=== PATIENT | female | born 1955 | race Caucasian/White ===

== ENCOUNTER 2023-03-18 12:58 | Outpatient (OUT) | payer OTHER, SELFPAY ==
--- NOTE | 2023-03-18 13:01 | CT_ITS ---
[address] [address] Patient Name: HORTENSIA BATES MRN: [id number] date: 1955 Sex: F Assigned Patient Location: MAMMO Current Patient Location: MAMMO Accession/Order Number: [id number] Exam Date: 03/18/2023 13:25 Report Date: 03/18/2023 23:13 At the request of: SACHA BRAXTON Procedure: CT lung screening low-dose EXAMINATION: CT lung screening low-dose HISTORY: History Of Tobacco Z87.891 COMPARISON: No relevant comparison available. TECHNIQUE: Axial, Coronal, and Sagittal images were created without the administration of IV contrast material. Dose reduction techniques were achieved by using automated exposure control and/or adjustment of mA and/or kV according to patient size and/or use of iterative reconstruction technique. FINDINGS: LUNGS: Right middle lobe contains a 8 mm, 5 mm, and 4 mm nodule. Posterior medial left lower lobe 8 mm nodule and a 6 mm nodule adjacent the diaphragm. A few additional similar. Small nodules scattered within the lungs. No acute infiltrates. PLEURA: No mass, effusion, or pneumothorax. VASCULATURE: No abnormality. BRADLEY: No mass or pathologic adenopathy. MEDIASTINUM: No mass or pathologic adenopathy. CARDIAC: No enlargement, pericardial thickening, or significant calcification. AORTA: No aneurysm or dissection. CHEST WALL: No mass or axillary adenopathy BONES: No bone lesion or fracture. LIMITED ABDOMEN: No suspicious findings. Limited images of the upper abdomen. OTHER: Negative. CT/CT lung screening low-dose IMPRESSION: 1. Lung-RADS Category 4A- Suspicious. Findings for which additional diagnostic testing and/ or tissue sampling is recommended. 3 month LDCT; PET/CT may be used when there is a >= 8 mm solid component. 2. Follow-up CT chest in 3 months is recommended to help document stability since this is the patient's initial CT of the chest. Electronically authenticated by: KACI CORTEZ Date: 03/18/2023 23:13
--- NOTE | 2023-03-18 13:01 | MM_ITS ---
Patient: HORTENSIA BATES Exam Date: 03/18/2023 : 1955 Gender:F Ordering : NYDIA Kailaamando Goldstein TRAINER Admission #: [id number] Family : Order #: [id number] CLICK HERE TO VIEW EXAM RADIOLOGY REPORT PROCEDURE: MM TOMOSYNTHESIS SCREENING BI COMPARISON: None. INDICATIONS: Screening Calculator Name NCI Breast Cancer Risk Assessment Tool 5 Year Breast Cancer Risk Not Reported. Lifetime Breast Cancer Risk Not Reported. Personal Breast Cancer No Personal Ovarian Cancer No Treatments None Family Cancers None LOCATION: [facility] BREAST COMPOSITION: Scattered areas fibroglandular density. FINDINGS: DIAGNOSTIC CATEGORY 0--INCOMPLETE: NEED ADDITIONAL IMAGING EVALUATION. Scattered benign-appearing nodules are present. Scattered benign-appearing calcifications are present. Scattered benign-appearing lymph nodes are present. RIGHT BREAST: Cluster of microcalcifications upper outer quadrant, mid breast. Spot magnification recommended. LEFT BREAST: 1.5 x 1.1 cm oval nodule 12 o'clock anterior left breast, ultrasound follow-up recommended. RECOMMENDATIONS: ADDITIONAL MAMMOGRAPHIC VIEWS REQUIRED: RIGHT BREAST - spot magnification ULTRASOUND: LEFT BREAST PLEASE NOTE: A NORMAL MAMMOGRAM DOES NOT EXCLUDE THE POSSIBILITY OF BREAST CANCER. A CLINICALLY SUSPICIOUS PALPABLE LUMP SHOULD BE BIOPSIED. Dictated by: Bashir Wood MD on 03/19/2023 at 07:26 Approved by: Bashir Wood MD on 03/19/2023 at 07:30
== END 2023-03-18 12:59 | disposition home or self-care (01) ==
LOC: MAMMO 12:58
PROVIDERS: PCP Nurse Practitioner; Visit Provider Nurse Practitioner
DX: Z12.31 Encounter for screening mammogram for malignant neoplasm of breast (principal); Z87.891 Personal history of nicotine dependence; R92.0 Mammographic microcalcification found on diagnostic imaging of breast; N63.25 Unspecified lump in the left breast, overlapping quadrants
CPT/HCPCS: 71271; 77063; 77067

== ENCOUNTER 2023-04-02 09:09 | Outpatient (OUT) | payer OTHER, SELFPAY ==
--- NOTE | 2023-04-02 | XR_ITS ---
The [address] [address] Patient Name: HORTENSIA BATES MRN: [id number] date: 1955 Sex: F Assigned Patient Location: [facility] Current Patient Location: RAD Accession/Order Number: [id number] Exam Date: 04/02/2023 09:26 Report Date: 04/02/2023 13:03 At the request of: ERYN TATE Procedure: XR foot RT min 3V PROCEDURE: XR ankle RT min 3V, XR foot RT min 3V COMPARISON: None. HISTORY: RIGHT ANKLE PAIN FINDINGS: BONES:No acute fracture or dislocation. Moderate degenerative changes of the midfoot with joint space narrowing and marginal osteophyte formation. SOFT TISSUES:Negative. No visible soft tissue swelling. EFFUSION:None visible. OTHER: Negative. XR/XR foot RT min 3V IMPRESSION: Moderate degenerative changes of the midfoot Electronically authenticated by: LAURO LOUIS Date: 04/02/2023 13:03
--- NOTE | 2023-04-02 | XR_ITS ---
The [address] [address] Patient Name: HORTENSIA BATES MRN: [id number] date: 1955 Sex: F Assigned Patient Location: [facility] Current Patient Location: RAD Accession/Order Number: [id number] Exam Date: 04/02/2023 09:26 Report Date: 04/02/2023 13:03 At the request of: ERYN TATE Procedure: XR ankle RT min 3V PROCEDURE: XR ankle RT min 3V, XR foot RT min 3V COMPARISON: None. HISTORY: RIGHT ANKLE PAIN FINDINGS: BONES:No acute fracture or dislocation. Moderate degenerative changes of the midfoot with joint space narrowing and marginal osteophyte formation. SOFT TISSUES:Negative. No visible soft tissue swelling. EFFUSION:None visible. OTHER: Negative. XR/XR ankle RT min 3V IMPRESSION: Moderate degenerative changes of the midfoot Electronically authenticated by: LAURO LOUIS Date: 04/02/2023 13:03
== END 2023-04-02 09:10 | disposition home or self-care (01) ==
LOC: RAD 09:09
PROVIDERS: PCP Nurse Practitioner; Visit Provider Physician Assistant
DX: M25.571 Pain in right ankle and joints of right foot (principal)
CPT/HCPCS: 73610; 73630

== ENCOUNTER 2023-04-07 09:15 | Outpatient (OUT) | payer OTHER, SELFPAY ==
--- NOTE | 2023-04-07 09:23 | MM_ITS ---
Patient Name: HORTENSIA BATES MR#: [id number] : 1955 Exam Date: 04/07/2023 Ordering Doctor: NYDIA Goldstein CNP RADIOLOGY REPORT PROCEDURE: MM DIAGNOSTIC MAMMO UNILAT RT, 04/07/2023, 09:24 US BREAST LT LIMITED, 04/07/2023, 09:36 COMPARISON: MM TOMOSYNTHESIS SCREENING BI, 03/18/2023. INDICATIONS: Abnormal Mammogram R92.8 Calculator Name NCI Breast Cancer Risk Assessment Tool 5 Year Breast Cancer Risk Not Reported. Lifetime Breast Cancer Risk Not Reported. Personal Breast Cancer No Personal Ovarian Cancer No Treatments None Family Cancers None LOCATION: [facility] BREAST COMPOSITION: Scattered areas fibroglandular density. FINDINGS: DIAGNOSTIC CATEGORY 3--PROBABLY BENIGN FINDING. THE FOLLOWING FINDING(S) HAS A HIGH PROBABILITY OF A BENIGN ETIOLOGY: RIGHT BREAST: Spot magnification views demonstrate a cluster of coarse calcifications within upper-outer quadrant; nonspecific but favoring benign etiology. Follow-up diagnostic mammography of right breast in 6 months is recommended to document stability and to help establish a baseline. LEFT BREAST: Ultrasound evaluation demonstrates 2 anechoic cysts with minimally lobular margins within the anterior upper breast, 1.2 cm and 0.2 cm in size. Follow-up mammography and ultrasound evaluation in 6 months is recommended to document stability and to help establish baseline. RECOMMENDATIONS: SHORT TERM FOLLOW-UP DIAGNOSTIC MAMMOGRAM BILATERAL BREASTS IN 6 MONTHS. SHORT TERM FOLLOW-UP ULTRASOUND LEFT BREAST IN 6 MONTHS. PLEASE NOTE: A NORMAL MAMMOGRAM DOES NOT EXCLUDE THE POSSIBILITY OF BREAST CANCER. A CLINICALLY SUSPICIOUS PALPABLE LUMP SHOULD BE BIOPSIED. Dictated by: Jung Louis M.D. on 04/07/2023 at 10:08 Approved by: Jung Louis M.D. on 04/07/2023 at 10:34
== END 2023-04-07 09:16 | disposition home or self-care (01) ==
LOC: MAMMO 09:15
PROVIDERS: PCP Nurse Practitioner; Visit Provider Nurse Practitioner
DX: R92.8 Other abnormal and inconclusive findings on diagnostic imaging of breast (principal)
CPT/HCPCS: 76642; 77065

== ENCOUNTER 2023-04-13 16:27 | Outpatient (RCR) | payer OTHER, SELFPAY | END 2023-05-17 07:57 | disposition home or self-care (01) | LOC: PT 16:27 | PROVIDERS: PCP Nurse Practitioner; Visit Provider Physician Assistant | DX: M19.071 Primary osteoarthritis, right ankle and foot (principal) | CPT/HCPCS: 20560; 97035; 97140; 97161 ==

== ENCOUNTER 2023-05-15 16:16 | Outpatient (OUT) | payer OTHER, SELFPAY ==
[2023-05-15 16:39] LABS: Estimated Average Glucose 126 mg/dL
[2023-05-15 16:42] LABS: Anion Gap 9.3; BUN Creatinine Ratio 21.3; Calcium 9.5 mg/dL (8.5-10.1); Carbon Dioxide 26.5 mmol/L (21.0-32.0); Chloride 104 mmol/L (98-107); Estimated GFR (African America >60 (>=60); Estimated GFR (Non-African Ame >60 (>=60); Glucose 110 mg/dL (74-106); Potassium 3.8 mmol/L (3.5-5.1); Sodium 136 mmol/L (136-145)
== END 2023-05-15 16:17 | disposition home or self-care (01) ==
LOC: LAB 16:18
PROVIDERS: PCP Nurse Practitioner; Visit Provider Nurse Practitioner
DX: E11.9 Type 2 diabetes mellitus without complications (principal); I10 Essential (primary) hypertension
CPT/HCPCS: 36415; 80048; 83036

== ENCOUNTER 2023-06-23 09:59 | Outpatient (OUT) | payer OTHER, SELFPAY ==
--- OUTSIDE RECORDS SUMMARY | 2023-06-23 10:04 | XMS_ITS | CCD ---
Author Name Unknown Address [address] [place] [address] Organization [facility] Care Team Providers Care Cdl Team Truck Driver Name Role Phone AICHHOLZ, KAILA Referring Unavailable AICHHOLZ, KAILA Primary Care Unavailable DE Procedure Practitioner Unavailab vi APPLE YASEEN Admitting Unavailable ALASTAL, YASEEN Attending Unavailable ALASTAL, YASEEN Surgeon Unavailable AICHHOLZ, KAILA Primary Care Unavailable AICHHOLZ, KAILA Referring Unavailable SULEIMAN GRULLON Admitting Unavailable SULEIMAN GRULLON Attending Unavailable SHANTHI, SARMED Admitting Unavailable SHANTHI, SARMED Attending Unavailable CHAY ARANGO Surgeon Unavailable AICHHOLZ, KAILA Primary Care Unavailable DE Procedure Practitioner Unavailab JUAN Souza Referring Unavailable SHANTHI, SARMED Surgeon Unavailable DE Procedure Practitioner Unavailab LULU Irizarry Referring Unavailable SHANTHI, SARMED Admitting Unavailable AICHHOLZ, KAILA Primary Care Unavailable MISAEL NEGRO Attending Unavailable DE Procedure Practitioner Unavailab vi APPLE YASEEN Surgeon Unavailable AICHHOLZ, TANGLED YARN WORKER KAILA Attending Unavailable AICHHOLZ, TANGLED YARN WORKER KAILA Consulting Unavailable AICHHOLZ, TANGLED YARN WORKER KAILA Primary Care Unavailable AICHHOLZ, TANGLED YARN WORKER KAILA Admitting Unavailable AICHHOLZ, TANGLED YARN WORKER KAILA Attending Unavailable AICHHOLZ, TANGLED YARN WORKER KAILA Consulting Unavailable AICHHOLZ, TANGLED YARN WORKER KAILA Primary Care Unavailable AICHHOLZ, TANGLED YARN WORKER KAILA Admitting Unavailable AICHHOLZ, TANGLED YARN WORKER KAILA Attending Unavailable AICHHOLZ, TANGLED YARN WORKER KAILA Consulting Unavailable AICHHOLZ, TANGLED YARN WORKER KAILA Primary Care Unavailable AICHHOLZ, TANGLED YARN WORKER KAILA Admitting Unavailable Aichliset, Kaila J Primary Care Provider [phone] Kaila Goldstein Attending Provider Kaila Goldstein Attending Unavailable Angelita, Kaila J Primary Care Unavailable Aichholz, Kaila J Admitting Unavailable Kaila Goldstein CNP Primary Care Provider KAILA GOLDSTEIN Attending Unavailable HARLEEN JONES Attending Unavailable KAILA GOLDSTEIN Primary Care Unavailable EDWINA PRETTY Attending Unavailable UMAIR ENRIQUE Attending Unavailable YANN KUHN Attending Unavailable KAILA GOLDSTEIN Primary Care Unavailable HARLEEN JONES Referring Unavailable Allergies Allergy Classification Reported Allergen(s) Allergy Type Date of Onset Reaction(s) Facility Unclassified (4 sources) Thiazides; Translations: [THIAZIDES] Drug allergy (disorder) 01-04-2013 [facility] Repository (3 sources) Spironolactone; Translations: [SPIRONOLACTONE] Drug Allergy 04-29-2023 [facility] (2 sources) Thiazides Drug Allergy 05-06-2022 [facility] Medications Completed/Discontinued Medications Medication Drug Class(es) Dates Sig (Normalized) Sig (Original) allopurinol 100 mg oral tablet (2 sources) Xanthine Oxidase Inhibitor allopurinol (ZYLOPRIM) 100 mg tablet Allopurinol 0 Active Comment on above: Allopurinol apixaban 5 mg oral tablet (2 sources) Factor Xa Inhibitor take 1 tablet by mouth twice daily apixaban (ELIQUIS) 5 mg tab(s) Take 5 mg by mouth two times a day. 0 Active Comment on above: Take 5 mg by mouth t wo times a day. atorvastatin 10 mg oral tablet (2 sources) HMG-CoA Reductase Inhibitor atorvastatin (LIPITOR) 10 mg tablet Atorvastatin Calcium 0 Active Comment on above: Atorvastatin Calcium Calcium Carbonate / vitamin D3 (2 sources) calcium carbonate/vitamin D3 (CALCIUM 500 + D ORAL) Take by mouth. 0 Active Comment on above: Take by mouth. levothyroxine sodium 0.1 mg oral tablet (2 sources) l-Thyroxine levothyroxine (SYNTHROID) 100 mcg tablet Levothyroxine Sodium 0 Active Comment on above: Levothyroxine Sodium losartan potassium 50 mg oral tablet (2 sources) Angiotensin 2 Receptor Gabriella losartan (COZAAR) 50 mg tablet Losartan Potassium 0 Active Comment on above: Losartan Potassium osmotic 24 hr metFORMIN hydrochloride 500 mg extended release oral tablet (2 sources) Biguanide metFORMIN ER (FORTAMET) 500 mg 24 hr tablet metFORMIN HCl 0 Active Comment on above: metFORMIN HCl 24 hr metoprolol succinate 25 mg extended release oral tablet (2 sources) beta-Adrenergic Gabriella metoprolol succinate ER (TOPROL XL) 25 mg 24 hr tablet Metoprolol Succinate 0 Active Comment on above: Metoprolol Succinate multivit-minerals/f olic acid (CENTRUM ADULTS ORAL) (2 sources) multivit-mineral s/ folic acid (CENTRUM ADULTS ORAL) Centrum 0 Active Comment on above: Centrum polyethylene glycol 3350 001019 mg / potassium chloride 2970 mg / sodium bicarbonate 6740 mg / sodium chloride 5860 mg / sodium sulfate 58845 mg powder for oral solution (1 source) Osmotic Laxative Start: 04-29-2023 End: 04-29-2023 peg 3350-Electrolytes (GOLYTELY) 236-22.74-6.74 -5.86 gram suspension Take 4,000 mL by mouth one time only for 1 dose. 1 Each 0 04/29/2023 04/29/2023 Comment on above: Take 4,000 mL by madhu th one time only for 1 dose. Problems Active Problems Problem Classification Problem Date Documented Da te Episodic/Chronic Cardiac dysrhythmias (2 sources) Chronic atrial fibrillation; Translations: [Chronic atrial fibrillation, unspecified] Onset: 06-18-2023 06-18-2023 Chronic Diabetes mellitus without complication (5 sources) Type 2 diabetes mellitus without complications; Translations: [TYPE 2 DM WITHOUT COMPLICATIONS] Onset: 03-13-2022 Chronic Disorders of lipid metabolism (3 sources) Mixed hyperlipidemia; Translations: [Hyperlipidemia] Onset: 06-12-2023 Chronic Essential hypertension (6 sources) Essential (primary) hypertension; Translations: [Essential hypertension] Onset: 09-18-2022 Chronic Gout and other crystal arthropathies (1 source) Gout, unspecified; Translations: [GOUT UNSPECIFIED] Onset: 03-16-2022 Chronic Other and unspecified benign neoplasm (2 sources) History of polyp of colon; Translations: [Personal history of colonic polyps] 04-29-2023 Episodic Other and unspecified benign neoplasm (1 source) Personal history of colonic polyps; Translations: [History of colon polyps] Onset: 06-18-2023 Episodic Other lower respiratory disease (1 source) Other nonspecific abnormal finding of lung field; Translations: [Other nonspecific abnormal finding of lung field] Onset: 04-03-2023 Episodic Other nutritional; endocrine; and metabolic disorders (3 sources) Morbid (severe) obesity due to excess calories; Translations: [Morbid (severe) obesity due to excess calories] Onset: 12-03-2022 Chronic Other nutritional; endocrine; and metabolic disorders (2 sources) Obese class III; Translations: [Morbid (severe) obesity due to excess calories] Onset: 06-18-2023 06-18-2023 Chronic Residual codes; unclassified (2 sources) Localized edema; Translations: [Localized edema] Onset: 06-12-2023 Episodic Thyroid disorders (4 sources) Hypothyroidism, unspecified; Translations: [HYPOTHYROIDISM UNSPECIFIED] Onset: 09-15-2022 Chronic Unclassified (2 sources) Other persistent atrial fibrillation; Translations: [Other persistent atrial fibrillation] Onset: 05-06-2022 Unclassified (1 source) Chronic atrial fibrillation, unspecified; Translations: [Chronic atrial fibrillation (HCC)] Onset: 06-18-2023 Viral infection (1 source) COVID-19; Translations: [COVID-19] Onset: 05-04-2022 Past or Other Problems Problem Classification Problem Date Documented Da te Episodic/Chronic Fever of unknown origin (4 sources) Fever, unspecified; Translations: [FEVER UNSPECIFIED] Onset: 05-01-2022 Episodic Malaise and fatigue (1 source) Other malaise; Translations: [OTHER MALAISE] Onset: 05-04-2022 Episodic Results Test Name Value Interpretation Reference Range Facility ANES POSTPROC EVALon 024 ANES POSTPROC EVAL HNO ID: [id number] Author: YANN KUHN MD Service: Anesthesiology Author Type: Physician Type: Anesthesia Postprocedure Evaluation Filed: 06/18/2023 09:58 Note Text: POST ANESTHESIA EVALUATION NOTE : 1955 Procedure Summary Date: 06/18/23 Room / Location: Procedures Anesthesia Start: 848 Anesthesia Stop: 918 Procedure: COLONOSCOPY SCREENING Diagnosis: History of colon polyps (High risk colon cancer surveillance: Personal history of colonic polyps) Scheduled Providers: Harleen Jones DO; Leona Rendon APRN.GEAR CUTTING MACHINE OPERATOR; Yann Kuhn MD; Abby Peoples, RN Responsible Provider: Yann Kuhn MD Anesthesia Type: MAC ASA Status: 3 Anesthesia Type: MAC Last Vitals Vitals Value Taken Time BP 161/101 06/18/23 0943 Temp 36.1 ?C (97 ?F) 06/18/23 0923 HR SpO2 77 06/18/23 0943 Resp 16 06/18/23 0943 SpO2 94 % 06/18/23 0943 Vitals shown include unfiled device data. Post Anesthesia Patient Status Patient Evaluation: PACU. PACU/ICU Patient Condition: stable. Anticipated Disposition: phase 2 then home. Neurological Status: aware and responsive. Pulmonary Status: breathing comfortably on room air Airway Control: returned to baseline unsupported. Cardiovascular Status: stable. Pain Management: clinically adequate - multimodal analgesia pain management approach Postoperative Hydration: acceptable. Intraoperative Events: no significant anesthesia events Recommendation: continue current plan of care. Anesthesia Observations No Documentation SIGNATURE: Yann Kuhn MD PATIENT NAME: Hortensia Bates DATE: June 18, 2023 TIME: 9:57 AM CSN: [id number] [facility] ANES PRE-OPon 06-18-2023 ANES PRE-OP HNO ID: [id number] Author: YANN KUHN MD Service: Anesthesiology Author Type: Physician Type: Anesthesia Preprocedure Evaluation Filed: 06/18/2023 08:20 Note Text: ANESTHESIOLOGY DAY OF SURGERY NOTE : 1955 Procedure Information Date/Time: 06/18/23 0900 Scheduled providers: Harleen Jones DO; Leona Rendon APRN.GEAR CUTTING MACHINE OPERATOR; Yann Kuhn MD; Abby Peoples, trauma therapist: COLONOSCOPY SCREENING Location: Procedures Estimated body mass index is 48.5 kg/m? as calculated from the following: Height as of this encounter: 172.7 cm (5' 8 ). Weight as of this encounter: 144.7 kg (319 lb). Most recent hematocrit and potassium results: No results found for this basename: HCT,HEMATOCRIT,K,POTA SSIUM Relevant Problems CARDIO (+) Chronic atrial fibrillation (HCC) (+) HTN (hypertension) Cardiovascular (+) Hyperlipidemia Other (+) Class 3 obesity (HCC) I - PHYSICAL EVALUATION AIRWAY Patient intubated: No. Tracheostomy tube not present Mallampati: II. TM distance: >3 FB. Neck ROM: full ROM without neurological symptoms. Mouth opening: adequate. Short neck: yes. Thick neck: yes DENTAL Normal dental observations. Dental findings: teeth intact. Additional exam findings: yes. CARDIOVASCULAR Rhythm: regular Rate: normal PULMONARY Breath sounds clear to auscultation. ABDOMINAL Obese: obesity present. II - ANESTHESIA PLAN ASA Score: 3 Anesthetic Plan: MAC NPO Status: adequate Beta Gabriella Monitoring Plan Monitoring plan: Standard ASA. Post Procedure Analgesic Plan Postoperative analgesic plan: parenteral or oral opioids and multimodal analgesia. Informed Consent Anesthetic risks, benefits, alternatives, personnel and consent discussed: yes. Patient / Responsible Republican agrees to proceed: yes Patient / Surrogate agrees to blood products: blood products not planned DNR status not reviewed with patient and/or family prior to surgery. Significant changes in the patient condition since the History and Physical, not otherwise documented in primary service progress note: no. Potential Anesthesia issues that may suggest increased risk of complications or contraindication to planned procedure: none. Vitals Value Taken Time BP 132/83 06/18/23 0749 Pulse Resp 22 06/18/23 0749 Temp 36.3 ?C (97.3 ?F) 06/18/23 0749 SpO2 95 % 06/18/23 0749 Outpatient Medications as of 06/18/2023 Medication Sig - levothyroxine (SYNTHROID) 100 mcg tablet Levothyroxine Sodium - metFORMIN ER (FORTAMET) 500 mg 24 hr tablet metFORMIN HCl - losartan (COZAAR) 50 mg tablet Losartan Potassium - metoprolol succinate ER (TOPROL XL) 25 mg 24 hr tablet Metoprolol Succinate - allopurinol (ZYLOPRIM) 100 mg tablet Allopurinol - atorvastatin (LIPITOR) 10 mg tablet Atorvastatin Calcium - calcium carbonate/vitamin D3 (CALCIUM 500 + D ORAL) Take by mouth. - apixaban (ELIQUIS) 5 mg tab(s) Take 5 mg by mouth two times a day. - multivit-minerals/fol ic acid (CENTRUM ADULTS ORAL) Centrum Facility-Administered Medications as of 06/18/2023 Medication Dose Route Frequency - lidocaine (PF) 10 mg/mL (1 %) 1-2 mg injection (XYLOCAINE) 0.1-0.2 mL INTRADERMAL PRN - NaCl 0.9% iv infusion 30 mL/hr INTRAVENOUS CONTINUOUS I have interviewed and examined the patient. I have reviewed the medical record and/or the pre-anesthesia evaluation, pertinent labs, and test results. This contains updated information obtained within 48 hours of Surgery/Procedure. SIGNATURE: Yann Kuhn MD PATIENT NAME: Hortensia Bates DATE: June 18, 2023 TIME: 8:19 AM CSN: [id number] Normal [facility] COLONOSCOPY SCREENINGon [facility] Colonoscopyon 06-18-2023 Colonoscopy [facility] Gastrointestinal Endoscopy Patient Name: Hortensia Bates Procedure Date: 06/18/2023 8:48 AM Date of : 1955 Admit Type: Outpatient Age: 67 Room: [place] [address] Gender: Female Note Status: Finalized Attending MD: Harleen Jones DO, [id number] Procedure: Colonoscopy Indications: High risk colon cancer surveillance: Personal history of colonic polyps Providers: Harleen Jones DO Patient Profile: This is a 67 year old female. Refer to note in patient chart for documentation of history and physical. Last Colonoscopy: within the past year. Referring Physician: Harleen Jones DO (Referring MD) Medicines: See the Anesthesia note for documentation of the administered medications Complications: No immediate complications. Requesting Provider: Procedure: Pre-Anesthesia Assessment: - Prior to the procedure, a History and Physical was performed, and patient medications and allergies were reviewed. The patient's tolerance of previous anesthesia was also reviewed. The risks and benefits of the procedure and the sedation options and risks were discussed with the patient. All questions were answered, and informed consent was obtained. Prior Anticoagulants: The patient has taken no anticoagulant or antiplatelet agents. ASA Grade Assessment: III - A patient with severe systemic disease. After reviewing the risks and benefits, the patient was deemed in satisfactory condition to undergo the procedure. After I obtained informed consent, the scope was passed under direct vision. Throughout the procedure, the patient's blood pressure, pulse, and oxygen saturations were monitored continuously. The 9219 Adult scope was introduced through the anus and advanced to the cecum, identified by appendiceal orifice and ileocecal valve. The colonoscopy was performed without difficulty. The patient tolerated the procedure well. The quality of the bowel preparation was good. The ileocecal valve, appendiceal orifice, and rectum were photographed. Scope Withdrawal Time: 0 hours 16 minutes 46 seconds Moderate Sedation: MAC anesthesia was administered by the anesthesia team. Total Procedure Duration: 0 hours 21 minutes 36 seconds Findings: Six sessile polyps were found in the rectum, sigmoid colon, transverse colon, ascending colon and cecum. The polyps were 3 to 5 mm in size. These polyps were removed with a jumbo cold forceps. Resection and retrieval were complete. Estimated blood loss was minimal. Multiple large-mouthed, medium-mouthed and small-mouthed diverticula were found in the left colon. There was no evidence of diverticular bleeding. Non-bleeding internal hemorrhoids were found during retroflexion. The hemorrhoids were small. The exam was otherwise without abnormality. Impression: - Six 3 to 5 mm polyps in the rectum, in the sigmoid colon, in the transverse colon, in the ascending colon and in the cecum, removed with a jumbo cold forceps. Resected and retrieved. - Moderate diverticulosis in the left colon. There was no evidence of diverticular bleeding. - Non-bleeding internal hemorrhoids. - The examination was otherwise normal. Recommendation: - Patient has a contact number available for emergencies. The signs and symptoms of potential delayed complications were discussed with the patient. Return to normal activities tomorrow. Written discharge instructions were provided to the patient. - Resume previous diet. - Continue present medications. - Await pathology results. - Repeat colonoscopy in 3 years for surveillance. - Return to referring physician. Procedure Code(s): --- Professional --- 03843, Colonoscopy, flexible; with biopsy, single or multiple Diagnosis Code(s): --- Professional --- Z12.11, Encounter for screening for malignant neoplasm of colon Z86.010, Personal history of colonic polyps D12.8, Benign neoplasm of rectum D12.5, Benign neoplasm of sigmoid colon D12.3, Benign neoplasm of transverse colon (hepatic flexure or splenic flexure) D12.2, Benign neoplasm of ascending colon D12.0, Benign neoplasm of cecum K64.8, Other hemorrhoids K57.30, Diverticulosis of large intestine without perforation or abscess without bleeding CPT copyright 2020 [employer]. All rights reserved. The codes documented in this report are preliminary and upon erecting engineer review may be revised to meet current compliance requirements. Attending Participation: I personally performed the entire procedure. Scope In: 8:53:53 AM Scope Out: 9:15:29 AM DO Harleen Hurd DO 06/18/2023 9:19:27 AM This report has been signed electronically by Harleen Jones DO Number of Addenda: 0 Note Initiated On: 06/18/2023 8:48 AM Estimated Blood Loss: Estimated blood loss was minimal. Normal [facility] GLUCOSE, BLOOD (POC)on 06-18 Glucose [Mass/Vol] 107 mg/dL Abnormal 74 - 99 mg/dL [facility] HISTORY PHYSICALon HISTORY PHYSICAL HNO ID: [id number] Author: HARLEEN JONES DO Service: Gastroenterology Author Type: Physician Type: H&P Filed: 06/18/2023 08:14 Note Text: HISTORY AND PHYSICAL Hortensia Bates, 67 year old female Current history and physical on file: No Is a new History and Physical required for today's visit? Yes Indication for procedure: History of colon polyps PROCEDURE(S) SCHEDULED FOR: Colonoscopy with or without biopsies and with or without removal of polyps or lesions, dilation (any means), treatment of bleeding (any means), based on clinical findings. BASELINE BEHAVIOR: Calm BASELINE ORIENTATION: A AND O x3 All medications and allergies reviewed: Yes Skin Assessment: Warm dry mucus membranes pink Airway/Respiratory Assessment: Airway: visualization of the uvula- Yes Mouth: opening greater than 2 fingerbreadths- Yes Neck: full range of motion- Yes Breath sounds clear/equal- Yes Cardiac Assessment: Regular rate and rhythm without murmur Abdominal Assessment: Abdomen soft, non-tender, no masses or organomegaly. Sedation Plan: MAC Additional Comments: None Harleen Jones DO [facility] SURGICAL PATHOLOGYon 024 CASE REPORT [facility] Comment on above: Order Comment: Speci men Type: TISSUE SPECIMEN Ordering Facility: [facility] Address: [address] [place] [address] Result Comment: Surg ica Pathology Report Case: [id number] Authorizing Provider: Harleen Jones DO Collected: 06/18/2023 08:59 AM Ordering Location: Procedures Received: 06/18/2023 09:31 AM Pathologist: Thi Delvalle MD, PhD Specimens: A) - CECUM POLYP B) - ASCENDING COLON POLYP C) - TRANSVERSE COLON POLYP D) - SIGMOID COLON POLYP E) - RECTAL BIOPSY Performed By: #### S #### [facility] CLIA [id number] [address] [place] [address] [place] FINAL DIAGNOSIS Normal [facility] ital Comment on above: Order Comment: Speci men Type: TISSUE SPECIMEN Ordering Facility: [facility] Address: [address] [place] [address] Result Comment: A. C olon, cecum, polyp, biopsy: - Features suggestive of hyperplastic polyp. - Deeper level examined. B. Colon, ascending, polyp, biopsy: - Features suggestive of hyperplastic polyp. - Deeper level examined. C. Colon, transverse, polyp, biopsy: - Features suggestive of sessile serrated polyp. - Deeper level examined. D. Colon, sigmoid, polyp, biopsy: - One fragment of tubular adenoma. - Separate fragment of colonic mucosa with features suggestive of sessile serrated polyp. - Deeper level examined. E. Rectum, biopsy: - Colonic mucosa with focal active inflammation and scattered multinucleate giant cell reaction. - Deeper level examined. Performed By: #### S #### [facility] CLIA [id number] [address] [place] [address] [place] FINAL PERFORMING LAB Normal [facility] Comment on above: Order Comment: Speci men Type: TISSUE SPECIMEN Ordering Facility: [facility] Address: [address] [place] [address] Result Comment: Diag nostic interpretation performed at [facility], [address] [place] [address] CLIA# [id number] Leveling Machine Operator: José Miguel White M.D. Performed By: #### S #### [facility] CLIA [id number] [address] [place] [address] [place] GROSS DESCRIPTION A. CECUM POLYP Normal [facility] Comment on above: Order Comment: Speci men Type: TISSUE SPECIMEN Ordering Facility: [facility] Address: [address] [place] [address] Result Comment: Rece ived in formalin is one piece of smith, soft tissue measuring 0.5 x 0.2 x 0.1 cm. Totally submitted in one cassette. B. ASCENDING COLON POLYP Received in formalin is one piece of smith, soft tissue measuring 0.3 x 0.2 x 0.1 cm. Totally submitted in one cassette. C. TRANSVERSE COLON POLYP Received in formalin are two pieces of smith, soft tissue aggregating to 0.3 x 0.2 x 0.2 cm. Totally submitted in one cassette. D. SIGMOID COLON POLYP Received in formalin are two pieces of smith, soft tissue aggregating to 0.4 x 0.2 x 0.2 cm. Totally submitted in one cassette. E. RECTAL BIOPSY Received in formalin are two pieces of smith, soft tissue aggregating to 0.4 x 0.2 x 0.2 cm. Totally submitted in one cassette. JTS June 18, 2023 3:40 PM Gross examination performed at [facility], [address] [place] [address] Performed By: #### S #### [facility] CLIA [id number] [address] [place] [address] [place] [address] [place] Office Visiton 06-12-2023 Follow-up visit [id number] Hortensia Bates 1955 F Date Provider Department Center 06/12/2023 UMAIR SAAVEDRA NAVARRO Smith Family History Problem Relation Age of Onset No Known Problems Mother No Known Problems Father Family Status - Relation Status Age at Mother Father Level of Service:44746 DE OFFICE/OUTPATIENT ESTABLISHED MOD MDM 30 MIN Normal [facility] Wes 06-04-2023 FAROOQ Telephone (GASTAV) PAULOHORTENSIA ([id number]) 1955 F Date Time Provider Department 06/04/23 HARLEEN JONES During your visit today, we recorded the following information about you: Naila Fleming OCCA 06/04/2023 11:19 AM Signed Contacted and spoke with patient regarding prep instructions for upcoming procedure. Answered all patient's questions. Patient demonstrated understanding and was instructed to call [phone] and ask for nurse triage line for any questions and/or concerns. NEAL Kumar Please review the prep instructions below with the patient should they call with questions. HOW TO PREPARE FOR YOUR COLONOSCOPY USING [facility] PREP You will need to have a responsible adult to bring you to and from your procedure. If you have joint or heart valve replacements, are diabetic or are taking blood thinners; please contact your doctor who ordered these medications or your surgeon and ask if you need to take antibiotics or need to change your medication dosages. Take all other medications as instructed by your doctor. On the day of the procedure take your medications with a sip of water. Please purchase the following from any drug store NO SCRIPT is needed: -4 Dulcolax Laxative tablets -8.3 Ounce size bottle of Miralax -64oz of Smart Water, Propel, Powerade, G2, or Gatorade(nothing red, blue, or purple) MEDICATIONS THAT SHOULD BE HELD 5 DAYS PRIOR TO PROCEDURE: BLOOD THINNERS- LIKE COUMADIN, OR PLAVIX IF YOU ARE A DIABETIC PATIENT YOU NEED TO CHECK WITH YOUR PROVIDER ON HOW TO MANAGE YOUR MEDICATIONS. 5 days prior to your colonoscopy: Do not take medicines that stop diarrhea, stop all fiber supplements, stop any iron-containing products. 3 days prior to your colonoscopy: do not eat High-fiber foods such as popcorn, beans, seeds, multigrain bread/cereals, nuts , salad/vegetables, or fresh and dried fruit One day prior to your colonoscopy: only drink clear liquids the ENTIRE DAY before your colonoscopy. DO NOT EAT ANY SOLID FOODS. Drink at least 8 ounces of clear liquids every hour after waking up, no red,blue or purple colors. The clear liquids include: Broth, water, apple or white grape juice, coffee/tea ( no milk or creamer), clear sodas, sports drinks such as Gatorade, jellos, popsicles. No alcohol. Depending on your arrival time, follow either the single dose prep or the split dose prep. Single Dose Prep FOLLOW THIS IF YOUR ARRIVAL TIME IS BEFORE 10 AM Starting at 3 pm the day before take the 4 Dulcolax Laxative tablets with a large glass of water and mix the entire bottle of the Miralax with the 64 oz. of the drink of your choosing(Smart Water, Propel, Powerade, G2, or Gatorade(nothing red, blue, or purple). Then refrigerate the Miralax solution. Starting at 5-6 pm start to drink the Miralax solution. You will drink 8 ounces every 15 minutes until the solution is completely gone. Continue to drink clear liquids up until 3 hours before your arrival time. DO NOT EAT ANYTHING THE DAY BEFORE OR THE DAY OF YOUR PROCEDURE DO NOT DRINK ANYTHING 3 HOURS PRIOR TO YOUR COLONOSCOPY If at any time you become nauseated or vomit, please stop drinking the solution for 20 mins and then resume. Please call [phone] and ask for Nurse Triage with any questions. Split Dose Prep : FOLLOW THIS IS YOUR ARRIVAL TIME IS AFTER 10AM Starting at 3 pm the day before take the 4 Dulcolax Laxative tablets with a large glass of water and mix the entire bottle of the Miralax with the 64 oz. of the drink of your choosing(Smart Water, Propel, Powerade, G2, or Gatorade(nothing red, blue, or purple). Then refrigerate the Miralax solution. Starting at 5-6 pm start to drink only half the Miralax solution (32 oz.), you will drink 8 ounces every 15 minutes until half the 64 oz. Solution is gone. The other half of the Miralax solution you will drink the day of the procedure 4 hours before your arrival time. You will drink 8 oz every 15 minutes until the solution is completely gone. DO NOT EAT ANYTHING THE DAY BEFORE OR THE DAY OF YOUR PROCEDURE DO NOT DRINK ANYTHING 3 HOURS PRIOR TO YOUR COLONOSCOPY If at any time you become nauseated or vomit, please stop drinking the solution for 20 mins and then resume. THANK YOU! Please call [phone] and ask for nurse triage line if you have any questions [facility] Jared Mcneil - 2nd floor (Surgery Center) [address] [address] [address] Allergies As of Date: 06/04/2023 Noted Allergy Reaction SPIRONOLACTONE 04/29/2023 4 - Hives THIAZIDES 05/06/2022 4 - Hives Date Reviewed: Never Reviewed Reason for Visit: Pre-Op Teaching [134] Prescriptions as of 06/04/2023 - apixaban (ELIQUIS) 5 mg tab(s) Take 5 mg by mouth two times a day. - levothyroxine (SYNTHROID) 100 mcg tablet Levothyroxine Sodium - metFORMIN ER (more content not included)... Normal [facility] CNOVon 04-29-2023 CNOV Office Visit (GASTAV ) HORTENSIA BATES ([id number]) 1955 F Date Time Provider Department 04/29/23 12:20 PM HARLEEN JONES During your visit today, we recorded the following information about you: Pulse Blood pressure Weight 78/minute 140/80 144.7 kg Harleen Jones DO 04/29/2023 12:04 PM Signed Bowel Preparation Instructions for: Miralax-Gatorade Preparations IF YOU DO NOT FOLLOW THESE DIRECTIONS, YOUR COLONOSCOPY WILL BE CANCELLED. Cerda Instructions: Your bowel must be empty so that your doctor can clearly view your colon. Follow all of the instructions in this handout EXACTLY as they are written. Do NOT eat any solid food the ENTIRE day before your colonoscopy. Buy your bowel preparation at least 5 days before your colonoscopy. Four (4) Dulcolax laxative tablets containing 5mg of bisacodyl each (NOT Dulcolax stool softener) One (1) 8.3oz. bottle Miralax (238 grams) or generic equivalent 2 x 32oz. Bottles of Gatorade (NOT RED) Diabetic Patients: Use G2 (Gatorade 2) TRANSPORTATION on the Day of Your Exam A responsible adult MUST be present with you at Check In prior to your colonoscopy and REMAIN in the endoscopy area until you are discharged. You are NOT ALLOWED to drive, take a taxi or bus, or leave the Endoscopy Center ALONE. If you do not have a responsible truck driver flatbed (family member or friend) with you to take you home, your exam cannot be done with sedation and will be cancelled. Please bring a list of all of your current medications, including any [id number] medications with you. Medications If you take insulin, diabetic medications or blood thinners such as Coumadin (warfarin), Plavix (clopidogrel), Ticlid (ticlopidine hydrochloride), Agrylin (anagrelide), Xarelto (Rivaroxaban), Pradaxa (Dabigatran), Eliquis (Apixaban), and Effient (Prasugrel). You MUST call the doctors who orders those medicines for instructions on altering the dosage before your colonoscopy. All other medications should be taken the day of the exam with a sip of water including ASPIRIN. Five (5) Days Before Your Colonoscopy Do NOT take medicines that stop diarrhea - such as Imodium, Kaopectate, or Pepto Bismol. Do NOT take fiber supplements - such as Metamucil, Citrucel, or Perdiem. Do NOT take products that contain iron - such as multi-vitamins (the label lists what is in the products). Three (3) Days Before Your Colonoscopy Do NOT eat high-fiber foods - such as popcorn, beans, seeds (flax, sunflower, quinoa), multigrain bread, nuts, salad/vegetables, or fresh and dried fruit. 1 Bowel Preparation Instructions for: Miralax-Gatorade Preparations One (1) Day Before Your Colonoscopy Only drink clear liquids the ENTIRE DAY before your colonoscopy. Do NOT eat any solid foods. Drink at least 8 ounces of clear liquids every hour after waking up. The clear liquids you can drink include: Clear Liquid (NO RED LIQUIDS) DO NOT DRINK Gatorade, Pedialyte or Powerade Clear broth or bouillon Coffee or tea (no milk or non-dairy creamer) Carbonated and non-carbonated soft drinks Soto-Aid or other fruit flavored drinks Strained fruit juices (no pulp) Jell-O, popsicles, hard candy Water Alcohol Milk or non-dairy creamers Noodles or vegetables in soup Juice with pulp Liquid you cannot see through Do not use tobacco/vaping products Mix 1/2 of Miralax bottle (119 grams) in each 32 ounces of Gatorade bottle until dissolved. Keep cool in the refrigerator. DO NOT ADD ICE. The bowel preparation solution will be consumed in two parts. Part 1 5:00 PM - Evening before your colonoscopy Take 4 Dulcolax tablets. 6 PM - Evening before your colonoscopy Drink 32 oz. of the mixed solution. Drink an 8 oz. glass of bowel preparation every 15 minutes for a total of 4 glasses. Fifteen (15) minutes later, drink an 8 oz. glass of of clear liquids every 15 minutes for a total of 2 glasses. You may continue to drink clear liquids till midnight. Part 2 On the day of your colonoscopy you may drink clear liquids up to (three) 3 hours prior to procedure. 4 1/2 hours before your colonoscopy Take another 32 oz. bottle of mixed solution. Drink an 8 oz. glass of bowel prep every 15 minutes for a total of 4 glasses. Fifteen (15) minutes later, drink an 8 oz. glass of clear liquids every 15 minutes for a total of 2 glasses. You may continue to drink clear liquids up to (three) 3 hours before your exam. 2 04/2019 Harleen Jones DO 04/29/2023 12:49 PM Signed Chief Compliant: Consultation requested by Dr. Kaila Goldstein, SIRI.TANGLED YARN WORKER for an opinion regarding hx of colon polyps. My final recommendations will be communicated back to the requesting physician by way of shared Medical record or letter to requesting physician via [place] mail. HPI: Hortensia J Paulo is a 67 year old female with PMH significant for hypo (more content not included)... Normal [facility] Wes 04-21-2023 [place] Telephone ([facility]) HORTENSIA BATES ([id number]) 1955 F Date Time Provider Department 04/21/23 CARMEN JACOB During your visit today, we recorded the following information about you: Preeti Elly 04/21/2023 3:02 PM Signed Pt's VM is full and there is no active MC Cannot inform pt 05/28 appt w/Kristel was canceled If pt calls back an attempt was made to contact her Frandy Dumont 04/21/23 Allergies As of Date: 04/21/2023 (Not on File) Date Reviewed: Never Reviewed Reason for Visit: Appointment [186] Problem List As Of Date: 04/21/2023 (None) Encounter Status:Closed by ELLY DUMONT on 04/21/23 Normal [facility] Glucose Glucometer (BldC) [M ass/Vol]Ordered By: Kaila Goldstein on 04-03-2023 Glucose [Mass/Vol] 118 mg/dL [facility] Comment on above: Random Glucose Refer ence Range is dependent on time and content of last meal. Glucose of more than 200 mg/dL in a nonstressed, ambulatory subject supports the diagnosis of Diabetes Mellitus. Glucose Poct Glucometerson 1 06-03-2022 Glucose [Mass/Vol] 118 mg/dL Normal [facility] Comment on above: Result Comment: [facility] Glucose Reference Range is dependent on time and content of last meal. Glucose of more than 200 mg/dL in a nonstressed, ambulatory subject supports the diagnosis of Diabetes Mellitus. PERFORMED BY: [place] [address] PATHOLOGIST DURABLE MEDICAL EQUIPMENT REPAIRER DARNELL WESLEY M.D. Performed By: #### G LULS #### Point of Care testing , PET tumor init tx strat sb-m ton 04-03-2023 PET tumor init tx strat sb-mt [facility] Main [place] [id number] Nuclear Medicine Report Signed Patient: Hortensia Bates MR#: [id number] : 1955 Acct:[id number] Age/Sex: 67 / F ADM Date: 04/03/23 Loc: Room: Type: REG CLI Attending Dr: Kaila Goldstein Copies to: Simone Reid Jr, DO Lisa J Aichholz, NP-C Ordering Provider: RADHA Blanton Date of Service: 04/03/23 PET/PET tumor init tx strat sb-mt: Lung Nodule PET/CT FUSION IMAGING CLINICAL INFORMATION: Lung nodule COMPARISON : Outside Lung screening CT 03/18/2023 TECHNIQUE: Noncontrasted CT scan from the base of the skull to the upper thigh followed by PET imaging. Multiplanar PET/CT fusion images. Blood Glucose : 118 mg/dL The F-18 FDG 13.9mCi. FINDINGS: Neck: No abnormal activity. Chest:No abnormal activity. Previously identified 8 mm nodules involving the lungs are not FDG avid, SUV max of 0.9. Abdomen/pelvis: No abnormal activity. Soft tissue/bones: No abnormal activity. CT findings: No pneumothorax. No pericardial or pleural effusions. No free air or free fluid. Colonic diverticulosis. PET/PET tumor init tx strat sb-mt IMPRESSION: Negative PET/CT. CT follow-up of the patient's lung nodules are recommended. Impression dictated by: Simone Reid Jr., D.O.04/03/2023 1:18 PM Dictation Location: [place] [address] Transcribed By: [facility] 04/03/23 1318 Dictated By: Simone Reid Jr, DO 04/03/23 1202 Signed By: 04/03/23 1318 [facility] Physician Referralon 27-2 023 Physician Referral [id number] [facility] Office Visiton 12-03-2022 Follow-up visit [id number] Hortensia Bates 1955 F Date Provider Department Center 12/03/2022 [id number] PRETTY CARD [facility] Family History Problem Relation Age of Onset No Known Problems Mother No Known Problems Father Family Status - Relation Status Age at Mother Father Level of Service:85711 DE OFFICE/OUTPATIENT ESTABLISHED MOD MDM 30-39 MIN Reason for Visit and Comments: Follow-up [362110] - 6 month follow up Normal [facility] CBC AUTO DIFFon 09-15-2022 BASO # 0.1 103/ul Normal 0.0-0.1 [facility] Comment on above: Performed By: #### C BC #### [facility] [address] [place] [address] [address] Yenny Huertas Basophils/100 WBC (Bld) 0.7 % Normal 0.2-2.0 [facility] Comment on above: Performed By: #### C BC #### [facility] [address] [place] [address] [address] Yenny Huertas EO # 0.2 103/ul Normal 0.0-0.7 [facility] Comment on above: Performed By: #### C BC #### [facility] [address] [place] [address] Dr. Yenny Huertas Eosinophils/100 WBC (Bld) 2.7 % Normal 0.9-7.0 [facility] Comment on above: Performed By: #### C BC #### [facility] [address] [place] [address] Dr. Yenny Huertas Erythrocyte distribution width (RBC) [Ratio] 14.6 % Normal 11.0-15.0 [facility] Comment on above: Performed By: #### C BC #### [facility] [address] [place] [address] Dr. Yenny Huertas Hematocrit (Bld) [Volume fraction] 41.4 % Normal 36.0-48.0 [facility] Comment on above: Performed By: #### C BC #### [facility] [address] [place] [address] Dr. Yenny Huertas Hemoglobin (Bld) [Mass/Vol] 13.6 g/dL Normal 12.0-16.0 [facility] Comment on above: Performed By: #### C BC #### [facility] [address] [place] [address] Dr. Yenny Huertas IG # 0.03 10e3/ul Normal 0.00-0.03 [facility] Comment on above: Performed By: #### C BC #### [facility] [address] [place] [address] Dr. Yenny Huertas IG % 0.3 % Normal 0.0-0.5 [facility] Comment on above: Performed By: #### C BC #### [facility] [address] [place] [address] Dr. Yenny Huertas LYMPH # 3.3 103/ul Normal 1.2-3.8 [facility] Comment on above: Performed By: #### C BC #### [facility] [address] [place] [address] Dr. Yenny Huertas Lymphocytes/100 WBC (Bld) 36.3 % Normal 20.5-60.0 [facility] Comment on above: Performed By: #### C BC #### [facility] [address] [place] [address] Dr. Yenny Huertas MANUAL DIFF REQ NO Normal [facility] Comment on above: Performed By: #### C BC #### [facility] [address] [place] [address] Dr. Yenny Huertas MCH (RBC) [Entitic mass] 29.1 pg Normal 26.7-34.0 [facility] Comment on above: Performed By: #### C BC #### [facility] [address] [place] [address] Dr. Yenny Huertas MCHC (RBC) [Mass/Vol] 32.9 g/dL Normal 29.9-35.2 [facility] Comment on above: Performed By: #### C BC #### [facility] [address] [place] [address] Dr. Yenny Huertas MCV (RBC) [Entitic vol] 88.7 fL Normal 81.0-99.0 [facility] Comment on above: Performed By: #### C BC #### [facility] [address] [place] [address] Dr. Yenny Huertas MONO # 0.7 103/ul Normal 0.3-0.8 [facility] Comment on above: Performed By: #### C BC #### [facility] [address] [place] [address] Dr. Yenny Huertas Monocytes/100 WBC (Bld) 7.7 % Normal 1.7-12.0 [facility] Comment on above: Performed By: #### C BC #### [facility] [address] [place] [address] Dr. Yenny Huertas NEUT # 4.7 103/ul Normal 1.4-6.5 [facility] Comment on above: Performed By: #### C BC #### [facility] [address] [place] [address] Dr. Yenny Huertas Neutrophils/100 WBC (Bld) 52.3 % Normal 43.0-75.0 [facility] Comment on above: Performed By: #### C BC #### [facility] [address] [place] [address] Dr. Yenny Huertas Platelet mean volume (Bld) [Entitic vol] 9.9 fL Normal 9.5-13.5 [facility] Comment on above: Performed By: #### C BC #### [facility] [address] [place] [address] Dr. Yenny Huertas PLT 285 103/ul Normal 150-450 [facility] Comment on above: Performed By: #### C BC #### [facility] [address] [place] [address] Dr. Yenny Huertas RBC 4.67 106/ul Normal 4.20-5.40 [facility] Comment on above: Performed By: #### C BC #### [facility] [address] [place] [address] Dr. Yenny Huertas WBC 9.0 103/ul Normal 4.0-11.0 [facility] Comment on above: Performed By: #### C BC #### [facility] [address] [place] [address] Dr. Yenny Huertas FREE T4on 09-15-2022 Free T4 [Mass/Vol] 1.04 ng/dL Normal 0.76-1.46 [facility] Comment on above: Performed By: #### F T4 #### [facility] [address] [place] [address] Dr. Yenny Huertas GLYCOHEMOGLOBIN A1Con 2022 ADA RECOMMENDATION SEE BELOW Normal [facility] Comment on above: Result Comment: ADA RECOMMENDED LIMIT 4.0 - 6.0 ADA THERAPEUTIC TARGET < 7.0 ACTION SUGGESTED > 7.0 Performed By: #### A 1C #### [facility] [address] [place] [address] Dr. Yenny Huertas Glucose [Mass/Vol] 126 mg/dL Normal [facility] Comment on above: Performed By: #### A 1C #### [facility] [address] [place] [address] Dr. Yenny Huertas HbA1c (Bld) [Mass fraction] 6.0 % Normal 4.5-6.2 [facility] Comment on above: Performed By: #### A 1C #### [facility] [address] [place] [address] Dr. Yenny Huertas MICROALBUMIN, RAND URon 05-0 mALB <1.3 Normal <=30.0 [facility] Comment on above: Performed By: #### M ALBR #### [facility] [address] [place] [address] Dr. Yenny Huertas PROF 14(COMP METB)on 023 Albumin [Mass/Vol] 3.5 g/dL Normal 3.4-5.0 [facility] Comment on above: Performed By: #### T SH, CMP #### [facility] [address] [place] [address] Dr. Yenny Huertas Albumin/Globulin [Mass ratio] 0.9 {ratio} Normal [facility] Comment on above: Performed By: #### T SH, CMP #### [facility] [address] [place] [address] Dr. Yenny Huertas ALP [Catalytic activity/Vol] 53 U/L Normal 46-116 [facility] Comment on above: Performed By: #### T SH, CMP #### [facility] [address] [place] [address] Dr. Yenny Huertas ALT [Catalytic activity/Vol] 30 U/L Normal 14-59 [facility] Comment on above: Performed By: #### T SH, CMP #### [facility] [address] [place] [address] [address] Yenny Huertas Anion gap [Moles/Vol] 9.6 mmol/L Normal [facility] Comment on above: Performed By: #### T SH, CMP #### [facility] [address] [place] [address] [address] Yenny Huertas AST [Catalytic activity/Vol] 17 U/L Normal 15-37 [facility] Comment on above: Performed By: #### T SH, CMP #### [facility] [address] [place] [address] [address] Yenny Huertas Bilirubin [Mass/Vol] 0.6 mg/dL Normal 0.2-1.0 [facility] Comment on above: Performed By: #### T SH, CMP #### [facility] [address] [place] [address] [address] Yenny Huertas Calcium [Mass/Vol] 9.1 mg/dL Normal 8.5-10.1 [facility] Comment on above: Performed By: #### T SH, CMP #### [facility] [address] [place] [address] [address] Yenny Huertas Chloride [Moles/Vol] 106 mmol/L Normal 98-107 [facility] Comment on above: Performed By: #### T SH, CMP #### [facility] [address] [place] [address] Dr. Yenny Huertas CO2 [Moles/Vol] 26.4 mmol/L Normal 21.0-32.0 [facility] Comment on above: Performed By: #### T SH, CMP #### [facility] [address] [place] [address] [address] Yenny Huertas Creatinine [Mass/Vol] 0.84 mg/dL Normal 0.55-1.02 [facility] Comment on above: Performed By: #### T SH, CMP #### [facility] [address] [place] [address] [address] Yenny Huertas EGFR-AF GABONESE >60 Normal >=60 [facility] Comment on above: Performed By: #### T SH, CMP #### [facility] [address] [place] [address] [address] Yenny Huertas EGFR-NON AF GABONESE >60 Normal >=60 [facility] Comment on above: Performed By: #### T SH, CMP #### [facility] [address] [place] [address] [address] Yenny Huertas Globulin (S) [Mass/Vol] 3.9 g/dL Normal [facility] Comment on above: Performed By: #### T SH, CMP #### [facility] [address] [place] [address] [address] Yenny Huertas Glucose [Mass/Vol] 119 mg/dL Critically high 74-106 [facility] Comment on above: Performed By: #### T SH, CMP #### [facility] [address] [place] [address] Dr. Yenny Huertas Potassium [Moles/Vol] 4.0 mmol/L Normal 3.5-5.1 [facility] Comment on above: Performed By: #### T SH, CMP #### [facility] [address] [place] [address] Dr. Yenny Huertas Protein [Mass/Vol] 7.4 g/dL Normal 6.4-8.2 [facility] Comment on above: Performed By: #### T SH, CMP #### [facility] [address] [place] [address] Dr. Yenny Huertas Sodium [Moles/Vol] 138 mmol/L Normal 136-145 [facility] Comment on above: Performed By: #### T SH, CMP #### [facility] [address] [place] [address] Dr. Yenny Huertas Urea nitrogen [Mass/Vol] 21.0 mg/dL Critically high 7.0-18.0 [facility] Comment on above: Performed By: #### T SH, CMP #### [facility] [address] [place] [address] Dr. Yenny Huertas Urea nitrogen/Creatinine [Mass ratio] 25.0 mg/mg Normal [facility] Comment on above: Performed By: #### T SH, CMP #### [facility] [address] [place] [address] [address] Yenny Huertas TSHon 09-15-2022 TSH 3.836 uIU/mL Critically high 0.358-3.740 [facility] Comment on above: Performed By: #### T SH, CMP #### [facility] [address] [place] [address] [address] Yenny Huertas UA RANDOM W/MICROSCOPICon BACTERIA TRACE Abnormal NONE SEEN [facility] Comment on above: Performed By: #### U AMIC #### [facility] [address] [place] [address] Dr. Yenny Huertas Bilirubin Ql (U) Negative Normal NEGATIVE [facility] Comment on above: Performed By: #### U AMIC #### [facility] [address] [place] [address] Dr. Yenny Huertas CAST NONE SEEN Normal NONE SEEN [facility] Comment on above: Performed By: #### U AMIC #### [facility] [address] [place] [address] Dr. Yenny Huertas Clarity (U) CLEAR Normal CLEAR [facility] Comment on above: Performed By: #### U AMIC #### [facility] [address] [place] [address] Dr. Yenny Huertas Color (U) LT. YELLOW Normal YELLOW [facility] Comment on above: Performed By: #### U AMIC #### [facility] [address] [address] [address] Yenny Huertas Crystals LM Nom (Urine sed) NONE SEEN Normal NONE SEEN [facility] Comment on above: Performed By: #### U AMIC #### [facility] [address] [place] [address] Dr. Yenny Huertas Epithelial cells LM Ql (Urine sed) MODERATE Abnormal NONE SEEN /RARE [facility] Comment on above: Performed By: #### U AMIC #### [facility] [address] [place] [address] Dr. Yenny Huertas Glucose Ql (U) Negative Normal NEGATIVE [facility] Comment on above: Performed By: #### U AMIC #### [facility] [address] [address] [address] Yenny Huertas Hemoglobin Ql (U) Negative Normal NEGATIVE [facility] Comment on above: Performed By: #### U AMIC #### [facility] [address] [address] [address] Yenny Huertas Ketones Ql (U) Negative Normal NEGATIVE [facility] Comment on above: Performed By: #### U AMIC #### [facility] [address] [address] [address] Yenny Huertas LEUKOCYTES TRACE Abnormal NEGATIVE [facility] Comment on above: Performed By: #### U AMIC #### [facility] [address] [address] [address] Yenny Huertas MUCOUS NONE SEEN Normal NONE SEEN [facility] Comment on above: Performed By: #### U AMIC #### [facility] [address] [address] [address] Yenny Huertas Nitrite Ql (U) Negative Normal NEGATIVE [facility] Comment on above: Performed By: #### U AMIC #### [facility] [address] [address] [address] Yenny Huertas pH (U) 5.0 [pH] Normal 5-9 [facility] Comment on above: Performed By: #### U AMIC #### [facility] [address] [address] [address] Yenny Huertas RBC 0-2 Normal 0-2 [facility] Comment on above: Performed By: #### U AMIC #### [facility] [address] [address] [address] Yenny Huertas SPEC GRAVITY >=1.030 Abnormal 1.005-<=1.025 [facility] Comment on above: Performed By: #### U AMIC #### [facility] [address] [address] [address] Yenny Huertas UA PROTEIN Negative Normal NEGATIVE/ TRACE [facility] Comment on above: Performed By: #### U AMIC #### [facility] [address] [place] [address] Dr. Yenny Huertas Urobilinogen Qn (U) 0.2 {Mila'U}/dL Normal 0.2 - 1. 0 [facility] Comment on above: Performed By: #### U AMIC #### [facility] [address] [address] [address] Yenny Huertas WBC 2-5 Abnormal NONE SEEN [facility] Comment on above: Performed By: #### U AMIC #### [facility] [address] [place] [address] Dr. Yenny Huertas [facility]17 SARS-CoV-2 (COVID-19) RNA JAS+probe Ql (Unsp spec) Detected Critically abnormal NOT DETECTED [facility] Comment on above: Result Comment: This test is not yet approved or cleared by the [place] FDA. When there are no FDA-approved or cleared tests available, and other criteria are met, FDA can make tests available under an emergency access mechanism called an Emergency Use Authorization (EUA). The EUA for this test is supported by the [employer] Associate of Health and Human Service's declaration that circumstances exist to justify the emergency use of in vitro diagnostics for the detection and/or diagnosis of the virus that causes COVID-19. This EUA will remain in effect for the duration of the COVID-19 declaration justifying emergency of IVDs, unless it is terminated or revoked by the FDA (after which the test may no longer be used). Performed By: #### C VDTBH #### [facility] [address] [place] [address] Dr. Yenny Huertas INFLUENZA A AND B AGon 05-01 INFLUANEGH SEE BELOW Normal [facility] Comment on above: Result Comment: Nega tive for Flu A protein angiten. Infection due to Flu A cannot be ruled out. Flu A angiten in the sample may be below the detection limit of the test. Performed By: #### I NFLUAB #### [facility] [address] [place] [address] Dr. Yenny Huertas INFLUBNEGH SEE BELOW Normal [facility] Comment on above: Result Comment: Nega tive for Flu B protein antigen. Infection due to Flu B cannot be ruled out. Flu B antigen in the sample may be below the detection limit of the test. Performed By: #### I NFLUAB #### [facility] [address] [place] [address] Dr. Yenny Huertas INFLUENZA A AG Negative Normal NEGATIVE SEE COMMENT [facility] Comment on above: Performed By: #### I NFLUAB #### [facility] [address] [place] [address] Dr. Yenny Huertas INFLUENZA B AG Negative Normal NEGATIVE SEE COMMENT [facility] Comment on above: Performed By: #### I NFLUAB #### [facility] [address] [place] [address] Dr. Yenny Huertas INTERNAL CONTROLS Within Normal Limits Normal Wi thin Normal Limits [facility] Comment on above: Performed By: #### I NFLUAB #### [facility] [address] [place] [address] Dr. Yenny Huertas GLYCOHEMOGLOBIN A1Con 2021 ADA RECOMMENDATION SEE BELOW Normal [facility] Comment on above: Result Comment: ADA RECOMMENDED LIMIT 4.0 - 6.0 ADA THERAPEUTIC TARGET < 7.0 ACTION SUGGESTED > 7.0 Performed By: #### M ALBR #### [facility] [address] [place] [address] Dr. Yenny Huertas Glucose [Mass/Vol] 117 mg/dL Normal [facility] Comment on above: Performed By: #### M ALBR #### [facility] [address] [place] [address] Dr. Yenny Huertas HbA1c (Bld) [Mass fraction] 5.7 % Normal 4.5-6.2 [facility] Comment on above: Performed By: #### M ALBR #### [facility] [address] [place] [address] Dr. Yenny Huertas URIC ACID SERUMon 03-13-2022 Urate [Mass/Vol] 4.8 mg/dL Normal 2.6-6.0 [facility] Comment on above: Performed By: #### U DILIA #### [facility] [address] [address] [address] Yenny Huertas Endoscopy Reporton Endoscopy Report MR#: [id number] [facility] Pt. Name: Hortensia Bates Surgery Date: 11/02/2020 Room #: 0C Date of : 1955 PROCEDURE NOTE ATTENDING: Arley Apple M.D. PROCEDURE: Colonoscopy. ASSISTING PHYSICIAN: Kirk Aranda MD. INDICATION: A 65-year-old female with a history of colonic polyps, status post EMR in the rectum. Plan for repeat endoscopy to assess polyps. ANESTHESIA: MAC. PROCEDURE IN DETAIL: Informed consent was obtained from the patient prior to the procedure. All risks, benefits were discussed in detail with the patient. The patient was agreeable to this. The patient was then brought back to the endoscopy suite, an IV was started. Appropriate monitoring devices were placed. The patient was then sedated with the help of anesthesia care. Once the patient was appropriately sedated, the patient was placed in left lateral decubitus position and the rectal examination was performed. The colonoscope was then advanced from the rectum to the cecum with identification of the appendiceal orifice and IC valve. The scope was then slowly withdrawn assessing all folds of mucosa for any abnormalities. Retroflexed view in the rectum was obtained prior to the end of the procedure. The patient tolerated the procedure well. There were no immediate complications. Prep was poor. Withdrawal time was 7 minutes. FINDINGS: 1. Severe sigmoid diverticulosis. 2. Rectal EMR site appeared clean without obvious residual lesions. Biopsies were obtained at the site to assess for any dysplasia. 3. Two rectal polyps noted, removed by cold biopsy forceps, removal and retrieved complete. PLAN: 1. To follow up on biopsy results. 2. Repeat colonoscopy in 1 year. 3. Recommend 2-day prep with 2 containers of GoLYTELY over the course of the 2 days. 4. The patient may resume previous diet and medications including Xarelto. Electronically Signed by: Arley Apple M.D. 11/06/2020 01:20 P Arley Apple M.D. I was present for the entire procedure from insertion of the scope until it was withdrawn. Date Dict: 11/02/2020/01:08 Patrick/Kirk Aranda MD Date Trans: 11/03/2020 08:22 A/lazarus [id number] Normal [facility] POC GLUCOSE LABon 11-02-2020 Glucose [Mass/Vol] 90 mg/dL Normal 70-100 [facility] Comment on above: Performed By: #### 3 1792 #### [facility] [address] [place] [address], [place] BASIC METABOLIC PANELon 07-16 Calcium [Mass/Vol] 7.9 mg/dL Low 8.6-10.3 [facility] Comment on above: Order Comment: No: D o not add to previous draw Performed By: #### 8 [id number] #### [facility] [address] [place] [address], [place] Chloride [Moles/Vol] 107 mmol/L Normal 98-107 [facility] Comment on above: Order Comment: No: D o not add to previous draw Performed By: #### 8 [id number] #### [facility] [address] [place] [address], [place] CO2 [Moles/Vol] 24 mmol/L Normal 21-31 [facility] Comment on above: Order Comment: No: D o not add to previous draw Performed By: #### 8 [id number] #### [facility] [address] [place] [address], [place] Creatinine [Mass/Vol] 0.62 mg/dL Normal 0.60-1.20 [facility] Comment on above: Order Comment: No: D o not add to previous draw Performed By: #### 8 [id number] #### [facility] [address] [place] [address], [place] GFR/1.73 sq M.predicted among blacks MDRD (S/P/Bld) [Vol rate/Area] mL/min/{1.73_m2} Normal >60 [facility] Comment on above: Order Comment: No: D o not add to previous draw Performed By: #### 8 [id number] #### [facility] [address] [place] [address], [place] GFR/1.73 sq M.predicted among non-blacks MDRD (S/P/Bld) [Vol rate/Area] mL/min/{1.73_m2} Normal >60 [facility] Comment on above: Order Comment: No: D o not add to previous draw Performed By: #### 8 [id number] #### [facility] [address] [place] [address], [place] Glucose [Mass/Vol] 106 mg/dL High 70-100 [facility] Comment on above: Order Comment: No: D o not add to previous draw Performed By: #### 8 [id number] #### [facility] [address] [place] [address], [place] Potassium [Moles/Vol] 3.9 mmol/L Normal 3.5-5.1 [facility] Comment on above: Order Comment: No: D o not add to previous draw Performed By: #### 8 [id number] #### [facility] [address] [place] [address], [place] Sodium [Moles/Vol] 137 mmol/L Normal 136-145 [facility] Comment on above: Order Comment: No: D o not add to previous draw Performed By: #### 8 [id number] #### [facility] [address] [place] [address], [place] Urea nitrogen [Mass/Vol] 11 mg/dL Normal 7-25 [facility] Comment on above: Order Comment: No: D o not add to previous draw Performed By: #### 8 [id number] #### [facility] [address] CBC COMPLETE BLOOD COUNTon 0 - Erythrocyte distribution width (RBC) [Ratio] 14.1 % Normal 11.5-15.0 [facility] Comment on above: Order Comment: No: D o not add to previous draw Performed By: #### 8 [id number] #### [facility] [address] [place] [address], [facility] Hematocrit (Bld) [Volume fraction] 37.8 % Normal 36.0-45.0 [facility] Comment on above: Order Comment: No: D o not add to previous draw Performed By: #### 8 [id number] #### [facility] [address] [facility] [place] [address], [facility] Hemoglobin (Bld) [Mass/Vol] 12.2 g/dL Normal 12.0-15.0 [facility] Comment on above: Order Comment: No: D o not add to previous draw Performed By: #### 8 [id number] #### [facility] [address] [place] [address], [facility] MCH (RBC) [Entitic mass] 29.6 pg Normal 27.0-33.0 [facility] Comment on above: Order Comment: No: D o not add to previous draw Performed By: #### 8 [id number] #### [facility] [address] [place] [address], [facility] MCHC (RBC) [Mass/Vol] 32.3 g/dL Normal 32.0-35.0 [facility] Comment on above: Order Comment: No: D o not add to previous draw Performed By: #### 8 [id number] #### [facility] [address] [place] [address], [facility] MCV (RBC) [Entitic vol] 91.7 fL Normal 82.0-98.0 [facility] Comment on above: Order Comment: No: D o not add to previous draw Performed By: #### 8 [id number] #### [facility] [address] [place] [address], [facility] Nucleated RBC/100 WBC (Bld) [Ratio] 0 % Normal 0-0 [facility] Comment on above: Order Comment: No: D o not add to previous draw Performed By: #### 8 [id number] #### [facility] [address] [place] [address], [place] PLAT CNT 276 10*3/uL Normal 150-400 [facility] Comment on above: Order Comment: No: D o not add to previous draw Performed By: #### 8 [id number] #### [facility] [address] [place] [address], [facility] RBC (Bld) [#/Vol] 4.12 10*6/uL Normal 3.80-5.00 [facility] Comment on above: Order Comment: No: D o not add to previous draw Performed By: #### 8 [id number] #### [facility] [address] [place] [address], [facility] WBC (Bld) [#/Vol] 15.14 10*3/uL High 4.00-10.60 [facility] Comment on above: Order Comment: No: D o not add to previous draw Performed By: #### 8 [id number] #### [facility] [address] [place] [address], [facility] MAGNESIUM BLOODon 07-27-2020 Magnesium [Mass/Vol] 1.7 mg/dL Low 1.9-2.7 [facility] Comment on above: Order Comment: No: D o not add to previous draw Performed By: #### 8 [id number] #### [facility] [address] [place] [address], [facility] POC GLUCOSE LABon 07-27-2020 Glucose [Mass/Vol] 93 mg/dL Normal 70-100 [facility] Comment on above: Performed By: #### 3 1792 #### [facility] [address] [place] [address], [facility] Glucose [Mass/Vol] 101 mg/dL High 70-100 [facility] Comment on above: Performed By: #### 3 5200 #### [facility] [address] [facility]. [address] Cardiovascular Lab Reporton 07-26-2020 Cardiovascular Lab Report [facility] Patient Name: Hortensia Bates [facility] MR #: [id number] Physician: Suleiman Grullon MD Department of Service Date: 07/26/2020 Medicine Birthdate: 1955 Division of Room #: 3AB [id number] Cardiology Adult Cardiovascular Services [address] [place] [address] Cardiovascular Laboratory Report ATRIAL FIBRILLATION ABLATION PROCEDURE NOTE DATE OF PROCEDURE: 07/26/2020 PERFORMING PHYSICIAN: Dr. Suleiman Grullon CONSENT: Patient NAME OF THE PROCEDURE: Pulmonary Vein Isolation and Comprehensive EP study. INDICATIONS FOR PROCEDURE: 1. Persistent atrial fibrillation non responsive to pharmacologic therapy. PROCEDURES PERFORMED: 1. Sonosite guided venous access as noted below and images stored in PACS. 2. Comprehensive EP study and catheter ablation for persistent atrial fibrillation through the pulmonary vein isolation technique. This includes right atrial recording and pacing, His bundle recording and right ventricular recording and pacing. 3. Intracardiac EP 3D mapping. 4. Intracardiac echocardiogram 5. Left atrial and coronary sinus recording and pacing to assess ablation results. 6. Left heart pressure measurements and LV pacing and recording. 7. Induction of arrhythmia and testing of ablation results using intravenous adenosine infusion. 8. Fluroscopy. FLUOROSCOPY: 2 minute 52 seconds/ 70 mGy. PROCEDURE NOTE: Risks, benefits and alternatives of the procedure were discussed with the patient and family who agreed to proceed. Please refer to my consult note for details of the discussion and of indications. 64-year-old lady with a history of atrial fibrillation, which is markedly symptomatic for her who has had recurrence of atrial fibrillation with RVR, which required hospitalization despite use of sotalol as well as having tried flecainide. Given the symptomatic AF, she chose ablation as the strategy to maintain sinus rhythm. On arrival to the hospital today for atrial fibrillation ablation, she was in sinus rhythm. A JUVENAL was performed to rule out LA thrombus. Following induction of anesthesia, the blood pressure was noted to drop from 110 systolic to 80 systolic with induction. Both the groins were then prepared and draped. Ultrasound was used to determine the course and patency of the femoral veins on both sides and they were noted to be patent and the image stored in Merge. After infiltration with 1% lidocaine, 4 venous sheaths were placed in the right. A radial arterial line was placed by Anesthesia team. RFV: 8Fx3 [employer] ThermoCool SF Bi-Directional over SL1/ Vizigo, SL1:Pentaray, ICE catheter, CS Catheter (EZ Steer) Heparin bolus was given followed by continuous intravenous drip to target ACT around 350. An intracardiac ultrasound catheter was inserted into the right atrium to examine the right atrial anatomy, atrial septum, pulmonary vein anatomy and to monitor for pericardial effusion and guide transseptal access. At baseline, there was no pericardial effusion and no OSCRA clot. LA was noted to be mildly enlarged. Esophagus was mapped using the [employer] 3D mapping software. Double transseptal access technique was used to cross to the left side. Following the first transeptal access, which was achieved via puncture of the thinner aspect of the septum using Agapito needle over Sl-1 sheath, Pentaray catheter was placed in the left atrium. LA pressures were noted to be 18/7mmHg at baseline and 31/14 mmHg at 600ms pacing. There was notable Bp drop when pacing was performed at 400ms drive train. LV pacing revealed concentric VA conduction. A second transseptal access was then achieved. With repeat access, SL1 sheath was exchanged over a wire to 8.5F Vizigo sheath. Pulmonary vein and left atrial anatomic mapping was performed using a 3-D [employer] computer-based mapping system. Identification of the pulmonary vein ostia was assisted by the left atrial signals on the ablation catheter, the ICE catheter and the Pentaray catheter placed in the individual pulmonary veins. There was a separate ostium on the left and separate on the right side. Mapping was performed and at this time, patient was noted to go itno atrial flutter and this self-terminated. A temperature probe was placed in the esophagus to monitor and avoid rise of temperature by more than a degree celsius. Wide area circumferential ablation technique (WACA) was then performed. Power settings were 30watts in the anterior aspect of WACA and 25W while ablating on the posterior wall as well as the roof. Following left WACA, entrance block was observed. However, there was some concern of ST elevation inferior lead although it was very, very minimal I verified to ensure there was no air bubble in the linea and this was ruled out. The findings were transient and no hemodynamic instability noted fol (more content not included)... Normal [facility] POC GLUCOSE LABon 07-26-2020 Glucose [Mass/Vol] 135 mg/dL High 70-100 [facility] Comment on above: Performed By: #### 8 [id number] ####[facility] [facility].[address] Glucose [Mass/Vol] 134 mg/dL High 70-100 [facility] Comment on above: Performed By: #### 8 [id number] ####[facility] [facility].[address] Glucose [Mass/Vol] 106 mg/dL High 70-100 [facility] Comment on above: Performed By: #### 8 5499 ####[address] [id number] [facility].[address] Endoscopy Reporton 0 Endoscopy Report MR#: [id number] [facility] Pt. Name: Hortensia Bates Surgery Date: 04/23/2020 Room #: 3AB [id number] Date of : 1955 PROCEDURE NOTE ATTENDING: Arley Apple M.D. PROCEDURE: Colonoscopy with endoscopic mucosa resection. ANESTHESIA: General anesthesia. INDICATION: This is a 64-year-old female patient, who underwent recent colonoscopy for evaluation of hematochezia, found to have 3.5 cm rectal polyp, who presented today for endoscopic mucosa resection. Extent of Exam: Cecum. Quality of Prep: Poor. Instrument Used: Adult Olympus colonoscope. DESCRIPTION OF PROCEDURE: Informed consent was obtained from the patient after explaining the procedure, benefits, risks, and alternatives. Procedure risks including infection, bleeding, perforation, aspiration, oversedation, anesthesia-related complications. The patient was positioned in left lateral position. Anesthesia medications were given by Anesthesia team in the room. The patient was under general anesthesia. Digital rectal exam was done before the procedure. An adult Olympus colonoscope was smeared with Surgilube and introduced into the rectum with no difficulties. The scope was advanced slowly into the cecum with no difficulty. There was poor colon prep preventing full examination of the rest of the colon. Examination of the rectum showed a large 3.5 cm polyp in the rectum about 2-3 cm above the dentate line. A submucosal injection was done by ORISE solution. Then, the polyp was removed in piecemeal fashion by hot snare polypectomy. The edges of the polypectomy site were ablated by argon plasma coagulation. There was a small pulsating whistle, not bleeding seen in the middle of the polypectomy defect for which we decided to clip the defect completely. Five Endoclips were placed onto the polypectomy site to close the defect. Another 2 small polyps removed from the sigmoid with cold snare measured 3 and 5 mm in diameter. The scope was withdrawn out of the patient. The patient tolerated the procedure well with no acute complications. FINDINGS: 1. A large 3.5 cm rectal polyp about 2-3 cm proximal to the dentate line, removed successfully by endoscopic mucosa resection in a piecemeal fashion as above. APC was done for the edges and the polypectomy defect was closed by 5 Endoclips. 2. Two polyps were removed from the sigmoid by cold snare, measured 3 mm and 5 mm. [id number] sigmoid diverticulosis. 3. Poor colon preparation. RECOMMENDATIONS: 1. Follow up pathology results of the removed colon polyp. 2. Consider resuming anticoagulation after 5 days of the procedure. 3. Repeat colonoscopy in 6 months. The patient will need to have 2 days colon preparation for examination of the rest of the colon and also examination of the polypectomy site. Electronically Signed by: Arley Aplpe M.D. 04/30/2020 11:52 A Arley Apple M.D. Date Dict: 04/23/2020/08:29 A/Arley Apple M.D. Date Trans: 04/23/2020 10:38 A/mmo [id number] Normal [facility] POC GLUCOSE LABon 04-23-2020 Glucose [Mass/Vol] 116 mg/dL High 70-100 [facility] Comment on above: Performed By: #### 8 [id number] #### [facility] [address] [place] [address], [place] Glucose [Mass/Vol] 98 mg/dL Normal 70-100 [facility] Comment on above: Performed By: #### 3 5200 #### [facility] [address] [place] [address], [place] Glucose [Mass/Vol] 89 mg/dL Normal 70-100 [facility] Comment on above: Performed By: #### 8 [id number] ####[facility] [facility] [address], [place] POC GLUCOSE LABon 04-22-2020 Glucose [Mass/Vol] 93 mg/dL Normal 70-100 [facility] Comment on above: Performed By: #### 3 1792 #### [facility] [address] [place] [address], [place] Glucose [Mass/Vol] 99 mg/dL Normal 70-100 [facility] Comment on above: Performed By: #### 3 5200 #### [facility] [address] [place] [address], [place] Glucose [Mass/Vol] 109 mg/dL High 70-100 [facility] Comment on above: Performed By: #### 3 1792 #### [facility] [address] [facility] [place] [id number], [place] *SARS-CoV-2 COVID-19on 04-21 Clinical Report Normal [facility] Comment on above: Result Comment: Spec imen: OROPHARYNGEAL Collected: 04/21/2020 11:17 Status: Final Last Updated: 04/22/2020 12:41 COVID-19 (Final) Not Detected The [employer] SARS-CoV-2 assay is a real-time (rt) reverse transcriptase (RT) polymerase chain reaction (PCR) test intended for the Invodo system. The SARS-CoV-2 primer and probe sets are designed to detect RNA from SARS-CoV-2 in a nasopharyngeal (PRINTER REPAIR TECHNICIAN) or oropharyngeal (OP) swab from patients with signs and symptoms of infection who are suspected of COVID-19. Results are for the identification of SARS-CoV-2 RNA. The SARS-CoV-2 RNA is generally detectable in a nasopharyngeal or oropharyngeal swab during the acute phase of infection. The [employer] SARS-CoV-2 assay is intended for use by qualified and trained clinical laboratory personnel specifically instructed and trained in the techniques of real-time PCR and in vitro diagnostic procedures. The [employer] SARS-CoV-2 assay is only for use under the Food and Drug Administration Emergency Use Authorization. Testing is limited to laboratories certified under the Clinical Laboratory Improvement Amendments of 1988 (CLIA), 42 U.S.C. 263a, to perform high complexity tests. Performed By: #### 3 [id number] #### [facility] [address] [place] [address], [facility] POC GLUCOSE LABon 04-21-2020 Glucose [Mass/Vol] 105 mg/dL High 70-100 [facility] Comment on above: Performed By: #### 8 [id number] #### [facility] [address] [place] [address], [place] Glucose [Mass/Vol] 97 mg/dL Normal 70-100 [facility] Comment on above: Performed By: #### 8 [id number] ####[facility] [address], [place] Glucose [Mass/Vol] 94 mg/dL Normal 70-100 [facility] Comment on above: Performed By: #### 8 [id number] ####[facility] [address], [place] Glucose [Mass/Vol] 98 mg/dL Normal 70-100 [facility] Comment on above: Performed By: #### 8 [id number] ####[facility] [facility].[address] PROTHROMBIN TIMEon 0 INR Coag (PPP) [Relative time] 1.04 {INR} Normal 0.91-1.16 [facility] Comment on above: Order Comment: No: D o not add to previous draw Result Comment: ACCC P RECOMMENDED INR FOR WARFARIN THERAPY ------ ------- CONDITION INR PROPHYLAXIS OF VENOUS THROMBOSIS 2-3 (HIGH-RISK SURGERY) TREATMENT OF VENOUS THROMBOSIS 2-3 TREATMENT OF PULMONARY EMBOLISM 2-3 PREVENTION OF SYSTEMIC EMBOLISM: 2-3 ACUTE MYOCARDIAL INFARCTION TISSUE HEART VALVES VALVULAR HEART DISEASE ATRIAL FIBRILLATION RECURRENT SYSTEMIC EMBOLISM MECHANICAL HEART VALVE 2.5-3.5 FROM: ORAL ANTICOAGULANTS. MECHANISM OF ACTION, CLINICAL EFFECTIVENESS, AND OPTIMAL THERAPEUTIC RANGE. CHEST 1995;108:231S-246S. Performed By: #### 1 007, 12429 #### [facility] [address] [facility] [place] [address], [facility] PT Coag (PPP) [Time] 13.6 s Normal 12.3-14.8 [facility] Comment on above: Order Comment: No: D o not add to previous draw Result Comment: ALL RESULTS MUST BE INTERPRETED WITH RESPECT TO BLOOD DRAWING ARTIFACT OR DILUTION ERROR OF ANTICOAGULANT AT THE TIME OF SAMPLING. Performed By: #### 1 0070, 87586 #### [facility] [address] [place] [address], [facility] BASIC METABOLIC PANELon 12-0 Calcium [Mass/Vol] 8.8 mg/dL Normal 8.6-10.3 [facility] Comment on above: Order Comment: No: D o not add to previous draw Performed By: #### 1 0070, 41300 #### [facility] [address] [place] [address], [place] Chloride [Moles/Vol] 103 mmol/L Normal 98-107 [facility] Comment on above: Order Comment: No: D o not add to previous draw Performed By: #### 1 0, 37822 #### [facility] [address] [place] [address], [place] CO2 [Moles/Vol] 26 mmol/L Normal 21-31 [facility] Comment on above: Order Comment: No: D o not add to previous draw Performed By: #### 1 0, 92215 #### [facility] [address] [place] [address], [place] Creatinine [Mass/Vol] 0.82 mg/dL Normal 0.60-1.20 [facility] Comment on above: Order Comment: No: D o not add to previous draw Performed By: #### 1 0, 47741 #### [facility] [address] [place] [address], [place] GFR/1.73 sq M.predicted among blacks MDRD (S/P/Bld) [Vol rate/Area] mL/min/{1.73_m2} Normal >60 [facility] Comment on above: Order Comment: No: D o not add to previous draw Performed By: #### 1 0, 07085 #### [facility] [address] [place] [address], [place] GFR/1.73 sq M.predicted among non-blacks MDRD (S/P/Bld) [Vol rate/Area] mL/min/{1.73_m2} Normal >60 [facility] Comment on above: Order Comment: No: D o not add to previous draw Performed By: #### 1 0, 13499 #### [facility] [address] [place] [address], [place] Glucose [Mass/Vol] 99 mg/dL Normal 70-100 [facility] Comment on above: Order Comment: No: D o not add to previous draw Performed By: #### 1 0070, 38376 #### [facility] [address] [place] [address], [place] Potassium [Moles/Vol] 3.8 mmol/L Normal 3.5-5.1 [facility] Comment on above: Order Comment: No: D o not add to previous draw Performed By: #### 1 0, 84607 #### [facility] [address] [place] [address], [place] Sodium [Moles/Vol] 136 mmol/L Normal 136-145 [facility] Comment on above: Order Comment: No: D o not add to previous draw Performed By: #### 1 0, 00073 #### [facility] [address] [place] [address], [place] Urea nitrogen [Mass/Vol] 15 mg/dL Normal 7-25 [facility] Comment on above: Order Comment: No: D o not add to previous draw Performed By: #### 1 0, 14023 #### [facility] [address] [place] [address], [place] POC GLUCOSE LABon 04-20-2020 Glucose [Mass/Vol] 109 mg/dL High 70-100 [facility] Comment on above: Performed By: #### 3 5200 #### [facility] [address] [place] [address], [place] Glucose [Mass/Vol] 95 mg/dL Normal 70-100 [facility] Comment on above: Performed By: #### 8 5499 ####[facility] [place] [address], [place] Glucose [Mass/Vol] 92 mg/dL Normal 70-100 [facility] Comment on above: Performed By: #### 3 5200 #### [facility] [address] [place] [address], [place] Glucose [Mass/Vol] 94 mg/dL Normal 70-100 [facility] Comment on above: Performed By: #### 8 5499 ####[facility] [place] [address], [place] HEMATOCRITon 04-19-2020 Hematocrit (Bld) [Volume fraction] 42.6 % Normal 36.0-45.0 [facility] Comment on above: Order Comment: No: D o not add to previous draw Performed By: #### 8 5499 #### [facility] [address] [place] [address], [place] HEMOGLOBINon 04-19-2020 Hemoglobin (Bld) [Mass/Vol] 13.6 g/dL Normal 12.0-15.0 [facility] Comment on above: Order Comment: No: D o not add to previous draw Performed By: #### 8 5499 #### [facility] [address] [place] [address], [place] POC GLUCOSE LABon 04-19-2020 Glucose [Mass/Vol] 114 mg/dL High 70-100 [facility] Comment on above: Performed By: #### 8 5499 ####[facility] [place] [address], [place] Glucose [Mass/Vol] 110 mg/dL High 70-100 [facility] Comment on above: Performed By: #### 3 1792 #### [facility] [address] [place] [address], [place] Glucose [Mass/Vol] 95 mg/dL Normal 70-100 [facility] Comment on above: Performed By: #### 8 5499 ####[facility] Glucose [Mass/Vol] 89 mg/dL Normal 70-100 [facility] Comment on above: Performed By: #### 3 1792 #### [facility] [address] *SARS-CoV-2 COVID-19on 04-18 Clinical Report Normal [facility] Comment on above: Result Comment: Spec imen: OROPHARYNGEAL Collected: 04/17/2020 23:30 Status: Final Last Updated: 04/18/2020 09:00 COVID-19 (Final) Not Detected The [employer] SARS-CoV-2 assay is a real-time (rt) reverse transcriptase (RT) polymerase chain reaction (PCR) test intended for the Invodo system. The SARS-CoV-2 primer and probe sets are designed to detect RNA from SARS-CoV-2 in a nasopharyngeal (PRINTER REPAIR TECHNICIAN) or oropharyngeal (OP) swab from patients with signs and symptoms of infection who are suspected of COVID-19. Results are for the identification of SARS-CoV-2 RNA. The SARS-CoV-2 RNA is generally detectable in a nasopharyngeal or oropharyngeal swab during the acute phase of infection. The [employer] SARS-CoV-2 assay is intended for use by qualified and trained clinical laboratory personnel specifically instructed and trained in the techniques of real-time PCR and in vitro diagnostic procedures. The [employer] SARS-CoV-2 assay is only for use under the Food and Drug Administration Emergency Use Authorization. Testing is limited to laboratories certified under the Clinical Laboratory Improvement Amendments of 1988 (CLIA), 42 U.S.C. 263a, to perform high complexity tests. Performed By: #### 3 1791 #### [facility] [address] CBC COMPLETE BLOOD COUNTon 1 06-19-2019 Erythrocyte distribution width (RBC) [Ratio] 14.6 % Normal 11.5-15.0 [facility] Comment on above: Order Comment: No: D o not add to previous drawMissed pt has to go to the bathroom ask to come back Performed By: #### 8 [id number] #### [facility] [address] [facility] [place] [address], [facility] Hematocrit (Bld) [Volume fraction] 43.6 % Normal 36.0-45.0 [facility] Comment on above: Order Comment: No: D o not add to previous drawMissed pt has to go to the bathroom ask to come back Performed By: #### 8 5499 #### [facility] [address] [facility] [facility] Hemoglobin (Bld) [Mass/Vol] 13.8 g/dL Normal 12.0-15.0 [facility] Comment on above: Order Comment: No: D o not add to previous drawMissed pt has to go to the bathroom ask to come back Performed By: #### 8 5499 #### [facility] [address] [facility] MCH (RBC) [Entitic mass] 28.9 pg Normal 27.0-33.0 [facility] Comment on above: Order Comment: No: D o not add to previous drawMissed pt has to go to the bathroom ask to come back Performed By: #### 8 5499 #### [facility] [address] [facility] MCHC (RBC) [Mass/Vol] 31.7 g/dL Low 32.0-35.0 [facility] Comment on above: Order Comment: No: D o not add to previous drawMissed pt has to go to the bathroom ask to come back Performed By: #### 8 5499 #### [facility] [address] [facility] [place] [address], [facility] MCV (RBC) [Entitic vol] 91.2 fL Normal 82.0-98.0 [facility] Comment on above: Order Comment: No: D o not add to previous drawMissed pt has to go to the bathroom ask to come back Performed By: #### 8 5499 #### [facility] [address] [facility]. [address] Nucleated RBC/100 WBC (Bld) [Ratio] 0 % Normal 0-0 [facility] Comment on above: Order Comment: No: D o not add to previous drawMissed pt has to go to the bathroom ask to come back Performed By: #### 8 5499 #### [facility] [address] [facility]. [address] PLAT CNT 338 10*3/uL Normal 150-400 [facility] Comment on above: Order Comment: No: D o not add to previous drawMissed pt has to go to the bathroom ask to come back Performed By: #### 8 5499 #### [facility] [address] RBC (Bld) [#/Vol] 4.78 10*6/uL Normal 3.80-5.00 [facility] Comment on above: Order Comment: No: D o not add to previous drawMissed pt has to go to the bathroom ask to come back Performed By: #### 8 5499 #### [facility] [address] [facility]. [address] WBC (Bld) [#/Vol] 10.61 10*3/uL High 4.00-10.60 [facility] Comment on above: Order Comment: No: D o not add to previous drawMissed pt has to go to the bathroom ask to come back Performed By: #### 8 5499 #### [facility] [address] Endoscopy Reporton 0 Endoscopy Report MR#: [id number] [facility] Pt. Name: NancyrositaHortensia Surgery Date: 04/18/2020 Room #: 3AB [id number] Date of : 1955 PROCEDURE NOTE ATTENDING: Arley Apple M.D. RANGE ECOLOGIST: Edmond Watkins MD PROCEDURE: Colonoscopy. INDICATION: This is a 64-year-old female with a history of obstructive sleep apnea, hypertension, prediabetes, and paroxysmal atrial fibrillation on Coumadin, who was initially admitted for atrial fibrillation and subsequently chemically cardioverted to sinus rhythm. The patient was given Xarelto and developed 2 episodes of hematochezia. Her hemoglobin remained stable. Colonoscopy was indicated to evaluate the cause of bleeding. ANESTHESIA: MAC. CONSENT: Informed consent was obtained after explaining the risks, benefits, and alternatives with the patient. The patient verbalized understanding. DESCRIPTION OF PROCEDURE: The patient was placed in the left lateral decubitus position. Oxygen and cardiac monitoring equipment were attached. The patient's vital signs were continuously monitored throughout the procedure. After appropriate sedation was achieved, a digital rectal exam was done, which was normal. An adult colonoscope was then advanced under direct vision from the patient's anal canal into the rectum and all the way up to cecum without any difficulty. Examination of the cecum showed a significant amount of semi-solid stool. The bowel prep was poor throughout the colon. Examination of right side of colonic mucosa was normal. However, due to poor prep, unable to exclude large polyps. Endoscope was carefully withdrawn while examining the mucosa. Significant diverticulosis was seen in sigmoid colon. Nonspecific erythema was also seen in the sigmoid colon, unclear if it was due to bowel prep. Endoscope was withdrawn into the rectum and examination of the rectum, one about 7 mm polyp was seen. This was not resected as the patient has an INR of 1.85 today. The scope was withdrawn into the rectum. Examination of the rectum showed a 3.5 cm mass/polyp with the central depression. The area was washed and the mass was examined closely. Biopsies were obtained from this mass to rule out malignancy. The mass was about 2 to 3 cm proximal to the dentate line. Endoscope was then withdrawn out of the patient's anal canal. There were no immediate complications. The patient tolerated the procedure well. EXTENT OF EXAMINATION: To cecum. BOWEL PREP: Poor. WITHDRAWAL TIME: 15 minutes. ENDOSCOPIC IMPRESSION: 1. Large (3.5 cm rectal mass/polyp about 2 cm proximal to the dentate line). Biopsies were obtained to rule out malignancy. 2. A 7 mm polyp in the rectosigmoid area proximal to mass, dissection not attempted due to the patient being on anticoagulation. 3. Xluumlkq-[id number]-fpvovh sigmoid diverticulosis. 4. Poor bowel prep with semi-solid stool throughout the colon interfering with visualization. RECOMMENDATIONS: 1. Follow up colon mass biopsy results. 2. If mass biopsy results showed adenomatous polyp without malignancy, recommend endoscopic resection via EMR, off anticoagulation if okay with Cardiology. 3. If mass shows malignancy, recommend surgical consultation. Electronically Signed by: Arley Apple M.D. 04/20/2020 12:10 P Arley Apple M.D. I was present for the entire procedure from insertion of the scope until it was withdrawn. Date Dict: 04/18/2020/06:44 P/Edmond Watkins MD Date Trans: 04/18/2020 07:10 P/lazarus [id number] Normal The [facility] POC GLUCOSE LABon 04-18-2020 Glucose [Mass/Vol] 111 mg/dL High 70-100 [facility] Comment on above: Performed By: #### 3 1792 #### [facility] [address] [facility] [place] [address], [facility] Glucose [Mass/Vol] 84 mg/dL Normal 70-100 [facility] Comment on above: Performed By: #### 8 5499 ####[facility] [facility] [place] [address], [place] Glucose [Mass/Vol] 87 mg/dL Normal 70-100 [facility] Comment on above: Performed By: #### 3 1792 #### [facility] [address] [facility] [place] [address], [place] Glucose [Mass/Vol] 86 mg/dL Normal 70-100 [facility] Comment on above: Performed By: #### 8 5499 ####[facility] Glucose [Mass/Vol] 104 mg/dL High 70-100 [facility] Comment on above: Performed By: #### 8 5499 #### [facility] [address] [facility] [address], [facility] PROTHROMBIN TIMEon 04-18- 0 INR Coag (PPP) [Relative time] 1.85 {INR} High 0.91-1.16 [facility] Comment on above: Order Comment: No: D o not add to previous draw Result Comment: ACCC P RECOMMENDED INR FOR WARFARIN THERAPY ------ ------- CONDITION INR PROPHYLAXIS OF VENOUS THROMBOSIS 2-3 (HIGH-RISK SURGERY) TREATMENT OF VENOUS THROMBOSIS 2-3 TREATMENT OF PULMONARY EMBOLISM 2-3 PREVENTION OF SYSTEMIC EMBOLISM: 2-3 ACUTE MYOCARDIAL INFARCTION TISSUE HEART VALVES VALVULAR HEART DISEASE ATRIAL FIBRILLATION RECURRENT SYSTEMIC EMBOLISM MECHANICAL HEART VALVE 2.5-3.5 FROM: ORAL ANTICOAGULANTS. MECHANISM OF ACTION, CLINICAL EFFECTIVENESS, AND OPTIMAL THERAPEUTIC RANGE. CHEST 1995;108:231S-246S. Performed By: #### 1 69, 52802 #### [facility] [address] [facility] [place] [address], [facility] PT Coag (PPP) [Time] 21.4 s High 12.3-14.8 [facility] Comment on above: Order Comment: No: D o not add to previous draw Result Comment: ALL RESULTS MUST BE INTERPRETED WITH RESPECT TO BLOOD DRAWING ARTIFACT OR DILUTION ERROR OF ANTICOAGULANT AT THE TIME OF SAMPLING. Performed By: #### 1 0, 09686 #### [facility] [address] [place] [address], [facility] CBC COMPLETE BLOOD COUNTon 06-18-2019 Erythrocyte distribution width (RBC) [Ratio] 14.6 % Normal 11.5-15.0 [facility] Comment on above: Order Comment: Unkno wn Performed By: #### 8 [id number] #### [facility] [address] [place] [address], [facility] Hematocrit (Bld) [Volume fraction] 41.7 % Normal 36.0-45.0 [facility] Comment on above: Order Comment: Unkno wn Performed By: #### 8 5499 #### [facility] [address] [place] [address], [facility] Hemoglobin (Bld) [Mass/Vol] 13.4 g/dL Normal 12.0-15.0 [facility] Comment on above: Order Comment: Unkno wn Performed By: #### 8 5499 #### [facility] [address] [place] [address], [facility] MCH (RBC) [Entitic mass] 29.0 pg Normal 27.0-33.0 [facility] Comment on above: Order Comment: Unkno wn Performed By: #### 8 5499 #### [facility] [address] [place] [address], [place] MCHC (RBC) [Mass/Vol] 32.1 g/dL Normal 32.0-35.0 [facility] Comment on above: Order Comment: Unkno wn Performed By: #### 8 5499 #### [facility] [address] [place] [address], [place] MCV (RBC) [Entitic vol] 90.3 fL Normal 82.0-98.0 [facility] Comment on above: Order Comment: Unkno wn Performed By: #### 8 5499 #### [facility] [address] [place] [address], [place] Nucleated RBC/100 WBC (Bld) [Ratio] 0 % Normal 0-0 [facility] Comment on above: Order Comment: Unkno wn Performed By: #### 8 5499 #### [facility] [address] PLAT CNT 294 10*3/uL Normal 150-400 [facility] Comment on above: Order Comment: Unkno wn Performed By: #### 8 5499 #### [facility] [address] RBC (Bld) [#/Vol] 4.62 10*6/uL Normal 3.80-5.00 [facility] Comment on above: Order Comment: Unkno wn Performed By: #### 8 5499 #### [facility] [address] WBC (Bld) [#/Vol] 9.33 10*3/uL Normal 4.00-10.60 [facility] Comment on above: Order Comment: Unkno wn Performed By: #### 8 5499 #### [facility] [address] [place] [address], [facility] CBC W/DIFFon 04-17-2020 ABS IMM GRANS 0.0 10*3/uL Normal 0.0-0.2 The [facility] Comment on above: Order Comment: No: D o not add to previous draw Performed By: #### 8 5499 #### [facility] [address] ABS NEUTROPHILS 6.4 10*3/uL Normal 1.6-7.6 The [facility] Comment on above: Order Comment: No: D o not add to previous draw Performed By: #### 8 5499 #### [facility] [address] [place] [address], [facility] Basophils (Bld) [#/Vol] 0.1 10*3/uL Normal 0.0-0.2 The [facility] Comment on above: Order Comment: No: D o not add to previous draw Performed By: #### 8 5499 #### [facility] [address] [place] [address], [facility] Basophils/100 WBC (Bld) 0.8 % Normal 0.0-1.0 [facility] Comment on above: Order Comment: No: D o not add to previous draw Performed By: #### 8 [id number] #### [facility] [address] [place] [address], [facility] Eosinophils (Bld) [#/Vol] 0.4 10*3/uL Normal 0.0-0.5 The [facility] Comment on above: Order Comment: No: D o not add to previous draw Performed By: #### 8 5499 #### [facility] [address] [place] [address], [facility] Eosinophils/100 WBC (Bld) 3.3 % Normal 0.0-6.0 The [facility] Comment on above: Order Comment: No: D o not add to previous draw Performed By: #### 8 [id number] #### [facility] [address] [place] [address], [facility] Erythrocyte distribution width (RBC) [Ratio] 14.6 % Normal 11.5-15.0 The [facility] Comment on above: Order Comment: No: D o not add to previous draw Performed By: #### 8 [id number] #### [facility] [address] [place] [id number], [facility] Hematocrit (Bld) [Volume fraction] 43.6 % Normal 36.0-45.0 [facility] Comment on above: Order Comment: No: D o not add to previous draw Performed By: #### 8 [id number] #### [facility] [facility] [address] [place] [address], [facility] Hemoglobin (Bld) [Mass/Vol] 14.1 g/dL Normal 12.0-15.0 The [facility] Comment on above: Order Comment: No: D o not add to previous draw Performed By: #### 8 5499 #### [facility] [address] [place] [address], [facility] IMMATURE GRANS 0.4 % Normal 0.0-1.0 [facility] Comment on above: Order Comment: No: D o not add to previous draw Performed By: #### 8 5499 #### [facility] [address] [place] [address], [facility] Lymphocytes (Bld) [#/Vol] 3.2 10*3/uL Normal 1.2-4.0 The [facility] Comment on above: Order Comment: No: D o not add to previous draw Performed By: #### 8 5499 #### [facility] [address] [place] [address], [facility] Lymphocytes/100 WBC (Bld) 29.7 % Normal 20.0-45.0 The [facility] Comment on above: Order Comment: No: D o not add to previous draw Performed By: #### 8 5499 #### [facility] [address] [address], [facility] MCH (RBC) [Entitic mass] 29.1 pg Normal 27.0-33.0 The [facility] Comment on above: Order Comment: No: D o not add to previous draw Performed By: #### 8 5499 #### [facility] [address] [place] [address], [facility] MCHC (RBC) [Mass/Vol] 32.3 g/dL Normal 32.0-35.0 The [facility] Comment on above: Order Comment: No: D o not add to previous draw Performed By: #### 8 5499 #### [facility] [address] [place] [id number], [facility] MCV (RBC) [Entitic vol] 89.9 fL Normal 82.0-98.0 The [facility] Comment on above: Order Comment: No: D o not add to previous draw Performed By: #### 8 5499 #### [facility] [address] [place] [address], [facility] Monocytes (Bld) [#/Vol] 0.7 10*3/uL Normal 0.1-1.0 The [facility] Comment on above: Order Comment: No: D o not add to previous draw Performed By: #### 8 5499 #### [facility] [address] [place] [address], [facility] MONOS 6.8 % Normal 5.0-12.0 The [facility] Comment on above: Order Comment: No: D o not add to previous draw Performed By: #### 8 5499 #### [facility] [address] [place] [address], [facility] Neutrophils/100 WBC (Bld) 59.0 % Normal 40.0-72.0 The [facility] Comment on above: Order Comment: No: D o not add to previous draw Performed By: #### 8 5499 #### [facility] [address] [facility] [address] [place] [id number], [facility] Nucleated RBC/100 WBC (Bld) [Ratio] 0 % Normal 0-0 The [facility] Comment on above: Order Comment: No: D o not add to previous draw Performed By: #### 8 5499 #### [facility] [address] [place] [id number], [place] PLAT CNT 332 10*3/uL Normal 150-400 The [facility] Comment on above: Order Comment: No: D o not add to previous draw Performed By: #### 8 5499 #### [facility] [address] [place] [address], [place] RBC (Bld) [#/Vol] 4.85 10*6/uL Normal 3.80-5.00 The [facility] Comment on above: Order Comment: No: D o not add to previous draw Performed By: #### 8 5499 #### [facility] [address] [place] [address], [place] WBC (Bld) [#/Vol] 10.90 10*3/uL High 4.00-10.60 The [facility] Comment on above: Order Comment: No: D o not add to previous draw Performed By: #### 8 5499 #### [facility] [address] [place] [address], [place] POC GLUCOSE LABon 04-17-2020 Glucose [Mass/Vol] 109 mg/dL High 70-100 The [facility] Comment on above: Performed By: #### 3 1792 #### [facility] [address] [place] [address], [place] Glucose [Mass/Vol] 93 mg/dL Normal 70-100 The [facility] Comment on above: Performed By: #### 3 5200 #### [facility] [address] [place] [address], [place] Glucose [Mass/Vol] 101 mg/dL High 70-100 The [facility] Comment on above: Performed By: #### 8 5499 ####[facility] [place] [address], [place] Glucose [Mass/Vol] 106 mg/dL High 70-100 The [facility] Comment on above: Performed By: #### 8 5499 #### [facility] [address] [place] [address], [place] *BLOOD CULTUREon 04-16-2020 *BLOOD CULTURE Clinical Report: (D) Specimen: BLOOD CULTURE Collected: 04/16/2020 00:31 Status: Final Last Updated: 04/21/2020 06:49 CULT RES (Final) No Growth Day 5 Normal The [facility] Comment on above: Performed By: #### 8 [id number] #### [facility] [address] APTTon 04-16-2020 aPTT Coag (Bld) [Time] 72.4 s Critically high 25.0-35.0 The [facility] Comment on above: Order Comment: No: D o not add to previous draw Result Comment: ALL RESULTS MUST BE INTERPRETED WITH RESPECT TO BLOOD DRAWING ARTIFACT OR DILUTION ERROR OF ANTICOAGULANT AT THE TIME OF SAMPLING. THE APTT SHOULD NOT BE USED TO MONITOR UNFRACTIONATED HEPARIN THERAPY, THIS LABORATORY NO LONGER HAS AN ESTABLISHED THERAPEUTIC RANGE BASED ON THE APTT. IT IS RECOMMENDED THAT THE [facility] - HEPARIN ASSAY (ANTI-XA ACTIVITY) BE USED FOR THIS PURPOSE. CLINICAL SIGNIFICANCE OF THE PTT RESULT IS QUESTIONABLE IN THE PRESENCE OF HEPARIN. Results called. Accurately read back by Cleo Ohara RN, CVU 3A patient's nurse, at 0524, 16-Apr-2020. Unreported [facility] for pharmacy use = 0.06 IU/ml . Performed By: #### 1 0, 61230 #### [facility] [address] [facility]. [address] BASIC METABOLIC PANELon 11-3 Calcium [Mass/Vol] 9.5 mg/dL Normal 8.6-10.3 [facility] Comment on above: Order Comment: No: D o not add to previous draw Performed By: #### 1 69, 08117 #### [facility] [address] [place] [address], [facility] Chloride [Moles/Vol] 102 mmol/L Normal 98-107 The [facility] Comment on above: Order Comment: No: D o not add to previous draw Performed By: #### 1 0, 29689 #### [facility] [address] [facility] [facility] [place] [id number], [facility] CO2 [Moles/Vol] 25 mmol/L Normal 21-31 The [facility] Comment on above: Order Comment: No: D o not add to previous draw Performed By: #### 1 0, 35078 #### [facility] [address] [place] [id number], [facility] Creatinine [Mass/Vol] 0.69 mg/dL Normal 0.60-1.20 The [facility] Comment on above: Order Comment: No: D o not add to previous draw Performed By: #### 1 0070, 32189 #### [facility] [address] [place] [address], [place] GFR/1.73 sq M.predicted among blacks MDRD (S/P/Bld) [Vol rate/Area] mL/min/{1.73_m2} Normal >60 The [facility] Comment on above: Order Comment: No: D o not add to previous draw Performed By: #### 1 0, 79010 #### [facility] [address] [place] [address], [place] GFR/1.73 sq M.predicted among non-blacks MDRD (S/P/Bld) [Vol rate/Area] mL/min/{1.73_m2} Normal >60 The [facility] Comment on above: Order Comment: No: D o not add to previous draw Performed By: #### 1 0, 61538 #### [facility] [address] [place] [address], [place] Glucose [Mass/Vol] 102 mg/dL High 70-100 The [facility] Comment on above: Order Comment: No: D o not add to previous draw Performed By: #### 1 0, 57091 #### [facility] [address] [place] [address], [place] Potassium [Moles/Vol] 3.5 mmol/L Normal 3.5-5.1 The [facility] Comment on above: Order Comment: No: D o not add to previous draw Performed By: #### 1 0, 85501 #### [facility] [address] [place] [address], [place] Sodium [Moles/Vol] 136 mmol/L Normal 136-145 [facility] on above: Order Comment: No: D o not add to previous draw Performed By: #### 1 0070, 99007 #### [facility] [address] [place] [address], [place] Urea nitrogen [Mass/Vol] 14 mg/dL Normal 7-25 The [facility] Comment on above: Order Comment: No: D o not add to previous draw Performed By: #### 1 0070, 73320 #### [facility] [address] [place] [address], [place] Calcium [Mass/Vol] 10.0 mg/dL Normal 8.6-10.3 [facility] Comment on above: Order Comment: No: D o not add to previous draw Performed By: #### 3 1791 #### [facility] [address] [place] [address], [place] Chloride [Moles/Vol] 101 mmol/L Normal 98-107 The [facility] Comment on above: Order Comment: No: D o not add to previous draw Performed By: #### 3 179 #### [facility] [address] [place] [address], [place] CO2 [Moles/Vol] 26 mmol/L Normal 21-31 The [facility] Comment on above: Order Comment: No: D o not add to previous draw Performed By: #### 3 179 #### [facility] [address] [place] [address], [place] Creatinine [Mass/Vol] 0.74 mg/dL Normal 0.60-1.20 The [facility] Comment on above: Order Comment: No: D o not add to previous draw Performed By: #### 3 179 #### [facility] [address] [place] [address], [place] GFR/1.73 sq M.predicted among blacks MDRD (S/P/Bld) [Vol rate/Area] mL/min/{1.73_m2} Normal >60 The [facility] Comment on above: Order Comment: No: D o not add to previous draw Performed By: #### 3 1791 #### [facility] [address] [place] [address], [facility] GFR/1.73 sq M.predicted among non-blacks MDRD (S/P/Bld) [Vol rate/Area] mL/min/{1.73_m2} Normal >60 The [facility] Comment on above: Order Comment: No: D o not add to previous draw Performed By: #### 3 1790 #### [facility] [address] [place] [address], [facility] Glucose [Mass/Vol] 109 mg/dL High 70-100 The [facility] Comment on above: Order Comment: No: D o not add to previous draw Performed By: #### 3 1790 #### [facility] [address] [place] [address], [facility] Potassium [Moles/Vol] 3.7 mmol/L Normal 3.5-5.1 The [facility] Comment on above: Order Comment: No: D o not add to previous draw Performed By: #### 3 1790 #### [facility] [address] [place] [address], [facility] Sodium [Moles/Vol] 136 mmol/L Normal 136-145 The [facility] Comment on above: Order Comment: No: D o not add to previous draw Performed By: #### 3 1791 #### [facility] [address] [place] [address], [place] Urea nitrogen [Mass/Vol] 14 mg/dL Normal 7-25 The [facility] Comment on above: Order Comment: No: D o not add to previous draw Performed By: #### 3 179 #### [facility] [address] [place] [address], [place] CBC W/DIFFon 04-16-2020 ABS IMM GRANS 0.0 10*3/uL Normal 0.0-0.2 The [facility] Comment on above: Order Comment: No: D o not add to previous draw Performed By: #### 8 5499 #### [facility] [address] [place] [address], [facility] ABS NEUTROPHILS 7.2 10*3/uL Normal 1.6-7.6 The [facility] Comment on above: Order Comment: No: D o not add to previous draw Performed By: #### 8 5499 #### [facility] [address] [place] [address], [place] Basophils (Bld) [#/Vol] 0.1 10*3/uL Normal 0.0-0.2 The [facility] Comment on above: Order Comment: No: D o not add to previous draw Performed By: #### 8 5499 #### [facility] [address] [place] [address], [place] Basophils/100 WBC (Bld) 0.7 % Normal 0.0-1.0 The [facility] Comment on above: Order Comment: No: D o not add to previous draw Performed By: #### 8 5499 #### [facility] [address] [place] [address], [place] Eosinophils (Bld) [#/Vol] 0.2 10*3/uL Normal 0.0-0.5 The [facility] Comment on above: Order Comment: No: D o not add to previous draw Performed By: #### 8 5499 #### [facility] [address] [place] [address], [place] Eosinophils/100 WBC (Bld) 2.1 % Normal 0.0-6.0 The [facility] Comment on above: Order Comment: No: D o not add to previous draw Performed By: #### 8 5499 #### [facility] [address] [place] [address], [place] Erythrocyte distribution width (RBC) [Ratio] 14.4 % Normal 11.5-15.0 The [facility] Comment on above: Order Comment: No: D o not add to previous draw Performed By: #### 8 5499 #### [facility] [address] [place] [address], [facility] Hematocrit (Bld) [Volume fraction] 43.2 % Normal 36.0-45.0 The [facility] Comment on above: Order Comment: No: D o not add to previous draw Performed By: #### 8 5499 #### [facility] [address] [place] [address], [facility] Hemoglobin (Bld) [Mass/Vol] 14.2 g/dL Normal 12.0-15.0 The [facility] Comment on above: Order Comment: No: D o not add to previous draw Performed By: #### 8 5499 #### [facility] [address] [place] [address], [facility] IMMATURE GRANS 0.3 % Normal 0.0-1.0 The [facility] Comment on above: Order Comment: No: D o not add to previous draw Performed By: #### 8 5499 #### [facility] [address] [place] [address], [facility] Lymphocytes (Bld) [#/Vol] 2.9 10*3/uL Normal 1.2-4.0 The [facility] Comment on above: Order Comment: No: D o not add to previous draw Performed By: #### 8 5499 #### [facility] [address] [place] [address], [place] Lymphocytes/100 WBC (Bld) 25.1 % Normal 20.0-45.0 The [facility] Comment on above: Order Comment: No: D o not add to previous draw Performed By: #### 8 5499 #### [facility] [address] [place] [address], [place] MCH (RBC) [Entitic mass] 29.5 pg Normal 27.0-33.0 The [facility] Comment on above: Order Comment: No: D o not add to previous draw Performed By: #### 8 5499 #### [facility] [address] [place] [address], [facility] MCHC (RBC) [Mass/Vol] 32.9 g/dL Normal 32.0-35.0 The [facility] Comment on above: Order Comment: No: D o not add to previous draw Performed By: #### 8 5499 #### [facility] [address] [place] [address], [facility] MCV (RBC) [Entitic vol] 89.8 fL Normal 82.0-98.0 The [facility] Comment on above: Order Comment: No: D o not add to previous draw Performed By: #### 8 5499 #### [facility] [address] [place] [address], [facility] Monocytes (Bld) [#/Vol] 0.9 10*3/uL Normal 0.1-1.0 The [facility] Comment on above: Order Comment: No: D o not add to previous draw Performed By: #### 8 5499 #### [facility] [address] [facility] [place] [address], [facility] MONOS 8.0 % Normal 5.0-12.0 The [facility] Comment on above: Order Comment: No: D o not add to previous draw Performed By: #### 8 5499 #### [facility] [address] [place] [address], [facility] Neutrophils/100 WBC (Bld) 63.8 % Normal 40.0-72.0 The [facility] Comment on above: Order Comment: No: D o not add to previous draw Performed By: #### 8 5499 #### [facility] [address] [place] [address], [facility] Nucleated RBC/100 WBC (Bld) [Ratio] 0 % Normal 0-0 The [facility] Comment on above: Order Comment: No: D o not add to previous draw Performed By: #### 8 5499 #### [facility] [address] [place] [address], [facility] PLAT CNT 335 10*3/uL Normal 150-400 The [facility] Comment on above: Order Comment: No: D o not add to previous draw Performed By: #### 8 5499 #### [facility] [address] [place] [address], [facility] RBC (Bld) [#/Vol] 4.81 10*6/uL Normal 3.80-5.00 The [facility] Comment on above: Order Comment: No: D o not add to previous draw Performed By: #### 8 5499 #### [facility] [address] [place] [address], [facility] WBC (Bld) [#/Vol] 11.34 10*3/uL High 4.00-10.60 [facility] Comment on above: Order Comment: No: D o not add to previous draw Performed By: #### 8 5499 #### [facility] [address] [facility] [place] [address], [facility] CTA CHESTon 04-16-2020 CTA CHEST [facility] Department of Radiology [address] [place] [id number] Patient Name: HORTENSIA BATES : 1955 Sex: F Age: Race: White Pt. Location: [id number] Patient Status: D Ordered Date: 04/16/2020 9:05:00 AM Completed Date: 04/16/2020 10:59 AM Requesting Provider: JOHANNA DE LA ROSA Attending Provider: YINA MAKI Report Copy To: Signs & Symptoms: Chest Pain History: See Comments Comments: Other, Planned for AFib albation, anatomy of pulmonary veins Exam: CTA CHEST Addendum Begins 3-D maximum intensity projection images generated and reviewed under concurrent physician supervision. Electronically signed: La Nena Diaz. Addendum Ends CTA CHEST 04/16/2020 11:01 AM SIGN AND SYMPTOMS: Chest Pain TECHNOLOGIST COMMENTS: a-fib possible pre ablasion dr torres monitored study QUESTIONS PER RADIOLOGIST: Other, Planned for AFib albation, anatomy of pulmonary veins PROTOCOL: Axial CT angiography images were obtained with IV contrast. CONTRAST: Contrast: OMNIPAQUE 350 (LOCM), 100 milliliter, Intravenous TECHNIQUE: Multidetector CT axial slices of the chest were obtained with IV contrast. Multiplanar reformats were performed and viewed on a separate workstation and reviewed to further define anatomy and possible pathology. COMPARISON: None. FINDINGS: Lower neck: Visualized part of the lower neck is within normal limits, no supraclavicle adenopathy. Vessels: Satisfactory contrast opacification of the pulmonary outflow tract, main pulmonary arteries, lobar and segmental branches. Mild atherosclerotic changes in the aorta. No significant coronary artery calcification. Mediastinum and Ibeth: Within normal limits. Heart: Normal size. No pericardial effusion. Airways: Within normal limits Lungs: Small groundglass 5 mm nodule in the left lower lobe superior segment in axial image 136 small intrapulmonary lymph node is suggested within the fissure in axial image 120 and 119. 5 mm pulmonary nodule in the right upper lobe in axial image 114. 4 mm peripheral nodule in the right lower lobe superior segment posteriorly in axial image 114. 7 mm nodule in the lateral segment of the right lower lobe in axial image 212 Pleura: Within normal limits. Chest Wall: Within normal limits. Upper Abdomen: Within normal limits. Bones: Bony spurring in the thoracic spine was disc space narrowing and vacuum phenomenon consistent was mild to moderate thoracic spondylosis. No acute bony abnormality. Gated CT examination revealed normal size and configuration of the left atrium with normal anatomy of the pulmonary veins. 2 pulmonary veins are seen on each side. Left atrial appendage appears normal and the ostium of the left atrial appendage measures 15.6 mm. The ostium of the left inferior pulmonary vein measures 16 mm and the first branch is seen approximately 3.6 cm from the ostium. The ostium of the left superior pulmonary vein measures 13.2 mm and the first branch is approximately 4 cm from the ostium. The ostium of the right pulmonary vein superiorly is 17.5 mm in diameter and the first branch is approximately 18 mm from the ostium. The ostium of the right inferior pulmonary vein is 14.5 mm in diameter and the first branch is approximately 2.4 cm from the ostium. IMPRESSION: Gated CT examination revealed normal anatomy of the pulmonary veins and 2 are visualized on each side with the measurements described above. The left atrium also is normal in size and configuration. Multiple bilateral small pulmonary nodules which require further evaluation depending on the risk status of the patient in [address] scan of the chest and based on the Fleischner Society criteria Electronically signed: Jax Perez. Transcribed by: [email or web address], User Resident: Electronically Signed by: LA NENA DIAZ @ 05/28/2020 12:26 AM Normal The [facility] Comment on above: Order Comment: Other , Planned for AFib albation, anatomy of pulmonary veins MAGNESIUM BLOODon 04-16-2020 Magnesium [Mass/Vol] 1.7 mg/dL Low 1.9-2.7 The [facility] Comment on above: Order Comment: No: D o not add to previous draw Performed By: #### 1 0070, 97157 #### [facility] [address] [place] [address], [facility] Magnesium [Mass/Vol] 1.8 mg/dL Low 1.9-2.7 The [facility] Comment on above: Order Comment: No: D o not add to previous draw Performed By: #### 1 0070, 35158 #### [facility] [address] [place] [address], [place] PHOSPHORUS BLOODon 11-30-202 0 Phosphate [Mass/Vol] 3.6 mg/dL Normal 2.5-5.0 The [facility] Comment on above: Order Comment: No: D o not add to previous draw Performed By: #### 1 0070, 75685 #### [facility] [address] [place] [address], [facility] POC GLUCOSE LABon 04-16-2020 Glucose [Mass/Vol] 111 mg/dL High 70-100 The [facility] Comment on above: Performed By: #### 8 5499 ####[facility] [place] [address], [place] Glucose [Mass/Vol] 122 mg/dL High 70-100 The [facility] Comment on above: Performed By: #### 3 5200 #### [facility] [address] [place] [address], [place] Glucose [Mass/Vol] 105 mg/dL High 70-100 The [facility] Comment on above: Performed By: #### 8 5499 ####[facility] [place] [address], [place] Glucose [Mass/Vol] 106 mg/dL High 70-100 [facility] Comment on above: Performed By: #### 8 5499 #### [facility] [address] [place] [address], [facility] PROTHROMBIN TIMEon 0 INR Coag (PPP) [Relative time] 2.24 {INR} High 0.91-1.16 [facility] Comment on above: Order Comment: No: D o not add to previous draw Result Comment: ACCC P RECOMMENDED INR FOR WARFARIN THERAPY ------ ------- CONDITION INR PROPHYLAXIS OF VENOUS THROMBOSIS 2-3 (HIGH-RISK SURGERY) TREATMENT OF VENOUS THROMBOSIS 2-3 TREATMENT OF PULMONARY EMBOLISM 2-3 PREVENTION OF SYSTEMIC EMBOLISM: 2-3 ACUTE MYOCARDIAL INFARCTION TISSUE HEART VALVES VALVULAR HEART DISEASE ATRIAL FIBRILLATION RECURRENT SYSTEMIC EMBOLISM MECHANICAL HEART VALVE 2.5-3.5 FROM: ORAL ANTICOAGULANTS. MECHANISM OF ACTION, CLINICAL EFFECTIVENESS, AND OPTIMAL THERAPEUTIC RANGE. CHEST 1995;108:231S-246S. Performed By: #### 1 0070, 57579 #### [facility] [address] PT Coag (PPP) [Time] 24.9 s High 12.3-14.8 [facility] Comment on above: Order Comment: No: D o not add to previous draw Result Comment: ALL RESULTS MUST BE INTERPRETED WITH RESPECT TO BLOOD DRAWING ARTIFACT OR DILUTION ERROR OF ANTICOAGULANT AT THE TIME OF SAMPLING. Performed By: #### 1 0070, 21714 #### [facility] [address] TROPONIN-Ion 04-16-2020 Troponin I.cardiac [Mass/Vol] 0.01 ng/mL Normal 0.00-0.04 [facility] Comment on above: Order Comment: No: D o not add to previous draw Result Comment: REFE RENCE RANGES: 0.00 - 0.04 ng/ml NORMAL 0.05 - 0.50 ng/ml INDETERMINATE > 0.50 ng/ml CONSISTENT WITH AN M.I. Performed By: #### 3 5200 #### [facility] [address] [facility] [place] [address], [facility] Troponin I.cardiac [Mass/Vol] 0.01 ng/mL Normal 0.00-0.04 [facility] Comment on above: Order Comment: No: D o not add to previous draw Result Comment: REFE RENCE RANGES: 0.00 - 0.04 ng/ml NORMAL 0.05 - 0.50 ng/ml INDETERMINATE > 0.50 ng/ml CONSISTENT WITH AN M.I. Performed By: #### 3 1791 #### [facility] [address] Troponin I.cardiac [Mass/Vol] 0.01 ng/mL Normal 0.00-0.04 [facility] Comment on above: Order Comment: No: D o not add to previous draw Result Comment: REFE RENCE RANGES: 0.00 - 0.04 ng/ml NORMAL 0.05 - 0.50 ng/ml INDETERMINATE > 0.50 ng/ml CONSISTENT WITH AN M.I. Performed By: #### 3 1791 #### [facility] [address] UFH HEPARIN ASSAYon 04-16-20 20 UNFRACTIONATED HEPARIN 0.28 IU/mL Low 0.30-0.70 [facility] Comment on above: Result Comment: Bell roxaban and Apixaban will interfere with the anti Xa assay used to monitor UFH and LMWH. Performed By: #### 1 0, 67150 #### [facility] [address] MAGNESIUM BLOODon 04-01-2020 Magnesium [Mass/Vol] 2.0 mg/dL Normal 1.9-2.7 [facility] Comment on above: Order Comment: No: D o not add to previous draw Performed By: #### 1 69, 01596 #### [facility] [address] POTASSIUM BLOODon 04-01-2020 Potassium [Moles/Vol] 3.6 mmol/L Normal 3.5-5.1 [facility] Comment on above: Order Comment: No: D o not add to previous draw Performed By: #### 1 69, 36544 #### [facility] [address] [facility] PROTHROMBIN TIMEon 0 INR Coag (PPP) [Relative time] 1.99 {INR} High 0.91-1.16 [facility] Comment on above: Order Comment: Lashaun claudio Result Comment: ACCC P RECOMMENDED INR FOR WARFARIN THERAPY ------ ------- CONDITION INR PROPHYLAXIS OF VENOUS THROMBOSIS 2-3 (HIGH-RISK SURGERY) TREATMENT OF VENOUS THROMBOSIS 2-3 TREATMENT OF PULMONARY EMBOLISM 2-3 PREVENTION OF SYSTEMIC EMBOLISM: 2-3 ACUTE MYOCARDIAL INFARCTION TISSUE HEART VALVES VALVULAR HEART DISEASE ATRIAL FIBRILLATION RECURRENT SYSTEMIC EMBOLISM MECHANICAL HEART VALVE 2.5-3.5 FROM: ORAL ANTICOAGULANTS. MECHANISM OF ACTION, CLINICAL EFFECTIVENESS, AND OPTIMAL THERAPEUTIC RANGE. CHEST 1995;108:231S-246S. Performed By: #### 8 5499 #### [facility] [address] [place] [address], [facility] PT Coag (PPP) [Time] 22.7 s High 12.3-14.8 [facility] Comment on above: Order Comment: Lashaun claudio Result Comment: ALL RESULTS MUST BE INTERPRETED WITH RESPECT TO BLOOD DRAWING ARTIFACT OR DILUTION ERROR OF ANTICOAGULANT AT THE TIME OF SAMPLING. Performed By: #### 8 5499 #### [facility] [address] [place] [address], [facility] BASIC METABOLIC PANELon 11-1 Calcium [Mass/Vol] 8.8 mg/dL Normal 8.6-10.3 [facility] Comment on above: Order Comment: No: D o not add to previous draw Performed By: #### 1 0070, 63811 #### [facility] [address] [place] [address], [facility] Chloride [Moles/Vol] 103 mmol/L Normal 98-107 [facility] Comment on above: Order Comment: No: D o not add to previous draw Performed By: #### 1 0, 81353 #### [facility] [address] [place] [address], [place] CO2 [Moles/Vol] 26 mmol/L Normal 21-31 [facility] Comment on above: Order Comment: No: D o not add to previous draw Performed By: #### 1 0, 01285 #### [facility] [address] [place] [address], [place] Creatinine [Mass/Vol] 0.75 mg/dL Normal 0.60-1.20 [facility] Comment on above: Order Comment: No: D o not add to previous draw Performed By: #### 1 0, 24241 #### [facility] [address] [place] [address], [place] GFR/1.73 sq M.predicted among blacks MDRD (S/P/Bld) [Vol rate/Area] mL/min/{1.73_m2} Normal >60 [facility] Comment on above: Order Comment: No: D o not add to previous draw Performed By: #### 1 69, 79929 #### [facility] [address] [place] [address], [place] GFR/1.73 sq M.predicted among non-blacks MDRD (S/P/Bld) [Vol rate/Area] mL/min/{1.73_m2} Normal >60 [facility] Comment on above: Order Comment: No: D o not add to previous draw Performed By: #### 1 0, 58921 #### [facility] [address] [place] [address], [place] Glucose [Mass/Vol] 88 mg/dL Normal 70-100 [facility] Comment on above: Order Comment: No: D o not add to previous draw Performed By: #### 1 0, 87681 #### [facility] [address] [place] [address], [place] Potassium [Moles/Vol] 3.8 mmol/L Normal 3.5-5.1 [facility] Comment on above: Order Comment: No: D o not add to previous draw Performed By: #### 1 0070, 74788 #### [facility] [address] [place] [address], [place] Sodium [Moles/Vol] 135 mmol/L Low 136-145 [facility] Comment on above: Order Comment: No: D o not add to previous draw Performed By: #### 1 69, 74453 #### [facility] [address] [place] [address], [place] Urea nitrogen [Mass/Vol] 17 mg/dL Normal 7-25 [facility] Comment on above: Order Comment: No: D o not add to previous draw Performed By: #### 1 69, 18208 #### [facility] [address] [place] [address], [place] MAGNESIUM BLOODon 03-31-2020 Magnesium [Mass/Vol] 1.9 mg/dL Normal 1.9-2.7 [facility] Comment on above: Order Comment: No: D o not add to previous draw Performed By: #### 1 69, 57412 #### [facility] [address] [place] [address], [place] POC GLUCOSE LABon 03-31-2020 Glucose [Mass/Vol] 95 mg/dL Normal 70-100 [facility] Comment on above: Performed By: #### 3 5200 #### [facility] [address] [place] [address], [place] Glucose [Mass/Vol] 86 mg/dL Normal 70-100 [facility] Comment on above: Performed By: #### 8 5499 #### [facility] [address] [place] [address], [facility] Glucose [Mass/Vol] 82 mg/dL Normal 70-100 [facility] Comment on above: Performed By: #### 3 1792 #### [facility] [address] [facility] [place] [address], [facility] Glucose [Mass/Vol] 92 mg/dL Normal 70-100 [facility] Comment on above: Performed By: #### 8 5499 ####[facility] [facility] [place] [address], [facility] Glucose [Mass/Vol] 96 mg/dL Normal 70-100 [facility] Comment on above: Performed By: #### 8 5499 ####[facility] PROTHROMBIN TIMEon 0 INR Coag (PPP) [Relative time] 1.80 {INR} High 0.91-1.16 [facility] Comment on above: Order Comment: No: D o not add to previous draw Result Comment: ACCC P RECOMMENDED INR FOR WARFARIN THERAPY ------ ------- CONDITION INR PROPHYLAXIS OF VENOUS THROMBOSIS 2-3 (HIGH-RISK SURGERY) TREATMENT OF VENOUS THROMBOSIS 2-3 TREATMENT OF PULMONARY EMBOLISM 2-3 PREVENTION OF SYSTEMIC EMBOLISM: 2-3 ACUTE MYOCARDIAL INFARCTION TISSUE HEART VALVES VALVULAR HEART DISEASE ATRIAL FIBRILLATION RECURRENT SYSTEMIC EMBOLISM MECHANICAL HEART VALVE 2.5-3.5 FROM: ORAL ANTICOAGULANTS. MECHANISM OF ACTION, CLINICAL EFFECTIVENESS, AND OPTIMAL THERAPEUTIC RANGE. CHEST 1995;108:231S-246S. Performed By: #### 1 69, 59875 #### [facility] [address] [place] [address], [place] PT Coag (PPP) [Time] 21.0 s High 12.3-14.8 [facility] Comment on above: Order Comment: No: D o not add to previous draw Result Comment: ALL RESULTS MUST BE INTERPRETED WITH RESPECT TO BLOOD DRAWING ARTIFACT OR DILUTION ERROR OF ANTICOAGULANT AT THE TIME OF SAMPLING. Performed By: #### 1 69, 72406 #### [facility] [address] [place] [address], [place] BASIC METABOLIC PANELon 11- Calcium [Mass/Vol] 9.0 mg/dL Normal 8.6-10.3 [facility] Comment on above: Order Comment: No: D o not add to previous draw Performed By: #### 1 69, 97625 #### [facility] [address] [place] [address], [place] Chloride [Moles/Vol] 101 mmol/L Normal 98-107 [facility] Comment on above: Order Comment: No: D o not add to previous draw Performed By: #### 1 69, 08889 #### [facility] [address] [place] [address], [place] CO2 [Moles/Vol] 25 mmol/L Normal 21-31 [facility] Comment on above: Order Comment: No: D o not add to previous draw Performed By: #### 1 69, 13041 #### [facility] [address] [place] [address], [place] Creatinine [Mass/Vol] 0.90 mg/dL Normal 0.60-1.20 [facility] Comment on above: Order Comment: No: D o not add to previous draw Performed By: #### 1 69, 00227 #### [facility] [address] [place] [address], [place] GFR/1.73 sq M.predicted among blacks MDRD (S/P/Bld) [Vol rate/Area] mL/min/{1.73_m2} Normal >60 [facility] Comment on above: Order Comment: No: D o not add to previous draw Performed By: #### 1 0, 10205 #### [facility] [address] [place] [address], [place] GFR/1.73 sq M.predicted among non-blacks MDRD (S/P/Bld) [Vol rate/Area] mL/min/{1.73_m2} Normal >60 [facility] Comment on above: Order Comment: No: D o not add to previous draw Performed By: #### 1 0, 08892 #### [facility] [address] [place] [address], [place] Glucose [Mass/Vol] 77 mg/dL Normal 70-100 [facility] above: Order Comment: No: D o not add to previous draw Performed By: #### 1 69, 96733 #### [facility] [address] [place] [address], [place] Potassium [Moles/Vol] 4.0 mmol/L Normal 3.5-5.1 [facility] Comment on above: Order Comment: No: D o not add to previous draw Performed By: #### 1 69, 48256 #### [facility] [address] [place] [address], [place] Sodium [Moles/Vol] 135 mmol/L Low 136-145 [facility] Comment on above: Order Comment: No: D o not add to previous draw Performed By: #### 1 69, 45055 #### [facility] [address] [place] [address], [place] Urea nitrogen [Mass/Vol] 17 mg/dL Normal 7-25 [facility] Comment on above: Order Comment: No: D o not add to previous draw Performed By: #### 1 69, 74609 #### [facility] [address] [place] [address], [facility] CBC COMPLETE BLOOD COUNTon 05-30-2019 Erythrocyte distribution width (RBC) [Ratio] 14.9 % Normal 11.5-15.0 [facility] Comment on above: Order Comment: No: D o not add to previous draw Performed By: #### 8 5499 #### [facility] [address] [place] [address], [facility] Hematocrit (Bld) [Volume fraction] 47.5 % High 36.0-45.0 [facility] Comment on above: Order Comment: No: D o not add to previous draw Performed By: #### 8 5499 #### [facility] [address] [place] [address], [facility] Hemoglobin (Bld) [Mass/Vol] 15.3 g/dL High 12.0-15.0 [facility] Comment on above: Order Comment: No: D o not add to previous draw Performed By: #### 8 5499 #### [facility] [address] [place] [address], [facility] MCH (RBC) [Entitic mass] 29.7 pg Normal 27.0-33.0 [facility] Comment on above: Order Comment: No: D o not add to previous draw Performed By: #### 8 5499 #### [facility] [address] [place] [address], [facility] MCHC (RBC) [Mass/Vol] 32.2 g/dL Normal 32.0-35.0 [facility] Comment on above: Order Comment: No: D o not add to previous draw Performed By: #### 8 5499 #### [facility] [address] [place] [address], [facility] MCV (RBC) [Entitic vol] 92.1 fL Normal 82.0-98.0 [facility] Comment on above: Order Comment: No: D o not add to previous draw Performed By: #### 8 5499 #### [facility] [address] [facility] [address], [facility] Nucleated RBC/100 WBC (Bld) [Ratio] 0 % Normal 0-0 [facility] Comment on above: Order Comment: No: D o not add to previous draw Performed By: #### 8 5499 #### [facility] [address] [facility] [place] [address], [facility] PLAT CNT 321 10*3/uL Normal 150-400 [facility] Comment on above: Order Comment: No: D o not add to previous draw Performed By: #### 8 5499 #### [facility] [address] [facility] [place] [address], [facility] RBC (Bld) [#/Vol] 5.16 10*6/uL High 3.80-5.00 [facility] Comment on above: Order Comment: No: D o not add to previous draw Performed By: #### 8 5499 #### [facility] [address] [facility] [place] [address], [facility] WBC (Bld) [#/Vol] 12.02 10*3/uL High 4.00-10.60 [facility] Comment on above: Order Comment: No: D o not add to previous draw Performed By: #### 8 5499 #### [facility] [address] [facility]. [address] Cardiovascular Lab Reporton 03-30-2020 Cardiovascular Lab Report [facility] Patient Name: [facility] Hortensia Berry MR #: [id number] Department of Physician: Jessica Lopez M.D. Division of Service Date: 03/30/2020 Cardiology Birthdate: 1955 Adult Cardiovascular Room #: 3AB [id number] [facility] [address] [place] [address] Cardiovascular Laboratory Report CLINICAL PRESENTATION: The patient is a 64-year-old female with history of obesity, atrial fibrillation on Coumadin anticoagulation, palpitation. She recently had an event monitor which showed nonsustained ventricular tachycardia. She is admitted for further evaluation. She is referred for coronary angiogram for definitive evaluation of CAD. IMPRESSION: Normal coronary arteries. PLAN: 1. No evidence of CAD. 2. Electrophysiology Service will make further recommendations for management of VT and atrial fibrillation. PROCEDURES: Coronary angiogram, conscious sedation 23 minutes. INDICATION: Ventricular tachycardia. PROCEDURE DESCRIPTION: The patient was brought to cardiac catheterization lab in a fasting state. Informed written consent was obtained. She was prepped and draped in a usual sterile fashion over the right wrist. A time-out was performed. She was given Versed and fentanyl for sedation. A 1% lidocaine infiltrated over the right radial artery. A 6-Mexican Terumo Glidesheath slender was placed in right radial artery. The radial anti-vasospasm cocktail of verapamil 2.5 mg and nitroglycerin 200 mcg was administered through the sheath. All catheter exchanges were made over the [employer] guidewire. A 5-Mexican JR5 was used to engage the right coronary artery. A 5-Mexican JL3.5 was used to engage the left main coronary artery. Coronary angiogram was performed in multiple orthogonal views using hand injection of contrast. At the end the procedure, all catheters wires removed from the body. The right radial sheath was removed. A TR band applied to obtain hemostasis. There were no apparent complications. TOTAL CONSCIOUS SEDATION TIME: 23 minutes. TOTAL FLUOROSCOPY TIME: 4 minutes 53 seconds, 1.0 Gy. 45 mL. TOTAL CONTRAST: 45 mL. CORONARY ANGIOGRAM: Left main coronary artery: Patent. The left main trifurcates into the LAD, ramus, and left circumflex coronary artery. Left anterior descending coronary artery: Patent. Ramus coronary artery: Patent. The ramus is a large vessel and bifurcates into a superior and inferior sub branch. Left circumflex coronary artery: Patent. Right coronary artery: Patent. The RCA is dominant. The PDA and HOLDEN are patent. Electronically Signed by: Chay Arango M.D. 04/03/2020 03:20 P Chay Arango M.D. Date Dict: 03/30/2020/09:37 A/Chay Arango M.D. Date Trans: 03/30/2020 01:43 P/mmo [id number] Normal [facility] MAGNESIUM BLOODon 03-30-2020 Magnesium [Mass/Vol] 2.1 mg/dL Normal 1.9-2.7 [facility] Comment on above: Order Comment: No: D o not add to previous draw Performed By: #### 1 0070, 40691 #### [facility] [address] [place] [address], [facility] POC GLUCOSE LABon 03-30-2020 Glucose [Mass/Vol] 94 mg/dL Normal 70-100 [facility] Comment on above: Performed By: #### 8 5499 ####[facility] [place] [address], [facility] Glucose [Mass/Vol] 95 mg/dL Normal 70-100 [facility] Comment on above: Performed By: #### 3 5200 #### [facility] [address] [place] [address], [place] Glucose [Mass/Vol] 86 mg/dL Normal 70-100 [facility] Comment on above: Performed By: #### 8 5499 ####[facility] [place] [address], [facility] PROTHROMBIN TIMEon 0 INR Coag (PPP) [Relative time] 1.88 {INR} High 0.91-1.16 [facility] Comment on above: Order Comment: Yes: Add to Previous draw if able Result Comment: ACCC P RECOMMENDED INR FOR WARFARIN THERAPY ------ ------- CONDITION INR PROPHYLAXIS OF VENOUS THROMBOSIS 2-3 (HIGH-RISK SURGERY) TREATMENT OF VENOUS THROMBOSIS 2-3 TREATMENT OF PULMONARY EMBOLISM 2-3 PREVENTION OF SYSTEMIC EMBOLISM: 2-3 ACUTE MYOCARDIAL INFARCTION TISSUE HEART VALVES VALVULAR HEART DISEASE ATRIAL FIBRILLATION RECURRENT SYSTEMIC EMBOLISM MECHANICAL HEART VALVE 2.5-3.5 FROM: ORAL ANTICOAGULANTS. MECHANISM OF ACTION, CLINICAL EFFECTIVENESS, AND OPTIMAL THERAPEUTIC RANGE. CHEST 1995;108:231S-246S. Performed By: #### 8 5499 #### [facility] [address] [facility]. [address] PT Coag (PPP) [Time] 21.7 s High 12.3-14.8 [facility] Comment on above: Order Comment: Yes: Add to Previous draw if able Result Comment: ALL RESULTS MUST BE INTERPRETED WITH RESPECT TO BLOOD DRAWING ARTIFACT OR DILUTION ERROR OF ANTICOAGULANT AT THE TIME OF SAMPLING. Performed By: #### 8 5499 #### [facility] [address] [facility] [address] *SARS-CoV-2 COVID-19on 03-29 SARS-CoV-2 (COVID-19) RNA JAS+probe Ql (Unsp spec) Not detected Normal Not Detected [facility] Comment on above: Order Comment: The A ptima SARS-CoV-2 assay is a nucleic acid amplification test intended for the qualitative detection of RNA from SARS-CoV-2 isolated and purified from nasopharyngeal (PRINTER REPAIR TECHNICIAN),oropharyngeal (OP), nasal swab, sputum, and bronchoalveolar lavage (BAL) specimens from patients with signs and symptoms of infection who are suspected of COVID-19. Results are for the identification of SARS-CoV-2 RNA. The SARS-CoV-2 RNA is generally detectable during the acute phase of infection. The Aptima SARS-CoV-2 Assay on the [employer] and [place] [employer] system is intended for use by laboratory personnel specifically instructed and trained in the operation of the [place] [employer] [place] [employer] system. The Aptima SARS-CoV-2 assay is only for use under the Food and Drug Administration Emergency Use Authorization. Testing is limited to laboratories certified under the Clinical Laboratory Improvement Amendments of 1988 (CLIA), 42 U.S.C. ???263a, to perform high complexity tests. Not Detected: Not detected does not preclude SARS-CoV-2 infection and should not be used as the sole basis for patient management decisions. Not detected results must be combined with clinical observations, patient history, and epidemiological information. Performed By: #### 3 1792 #### [address] APTTon 03-29-2020 aPTT Coag (Bld) [Time] 52.2 s High 25.0-35.0 [facility] Comment on above: Order Comment: No: D o not add to previous draw Result Comment: ALL RESULTS MUST BE INTERPRETED WITH RESPECT TO BLOOD DRAWING ARTIFACT OR DILUTION ERROR OF ANTICOAGULANT AT THE TIME OF SAMPLING. THE APTT SHOULD NOT BE USED TO MONITOR UNFRACTIONATED HEPARIN THERAPY, THIS LABORATORY NO LONGER HAS AN ESTABLISHED THERAPEUTIC RANGE BASED ON THE APTT. IT IS RECOMMENDED THAT THE UFH - HEPARIN ASSAY (ANTI-XA ACTIVITY) BE USED FOR THIS PURPOSE. UNREPORTED UFH >0.10 Performed By: #### 8 5499 #### [address] CBC W/DIFFon 03-29-2020 ABS IMM GRANS 0.0 10*3/uL Normal 0.0-0.2 The [facility] Comment on above: Order Comment: No: D o not add to previous draw Performed By: #### 8 5499 #### [facility] [address] ABS NEUTROPHILS 7.5 10*3/uL Normal 1.6-7.6 [facility] Comment on above: Order Comment: No: D o not add to previous draw Performed By: #### 8 [id number] #### [facility] [address] [place] [address], [facility] Basophils (Bld) [#/Vol] 0.1 10*3/uL Normal 0.0-0.2 The [facility] Comment on above: Order Comment: No: D o not add to previous draw Performed By: #### 8 [id number] #### [facility] [address] [place] [address], [facility] Basophils/100 WBC (Bld) 0.6 % Normal 0.0-1.0 The [facility] Comment on above: Order Comment: No: D o not add to previous draw Performed By: #### 8 [id number] #### [facility] [address] [place] [address], [facility] Eosinophils (Bld) [#/Vol] 0.3 10*3/uL Normal 0.0-0.5 The [facility] Comment on above: Order Comment: No: D o not add to previous draw Performed By: #### 8 [id number] #### [facility] [address] [place] [address], [facility] Eosinophils/100 WBC (Bld) 2.1 % Normal 0.0-6.0 The [facility] Comment on above: Order Comment: No: D o not add to previous draw Performed By: #### 8 [id number] #### [facility] [address] [facility] [place] [address], [facility] Erythrocyte distribution width (RBC) [Ratio] 14.7 % Normal 11.5-15.0 The [facility] Comment on above: Order Comment: No: D o not add to previous draw Performed By: #### 8 [id number] #### [facility] [address] [place] [address], [place] Hematocrit (Bld) [Volume fraction] 48.0 % High 36.0-45.0 The [facility] Comment on above: Order Comment: No: D o not add to previous draw Performed By: #### 8 [id number] #### [facility] [address] [place] [address], [facility] Hemoglobin (Bld) [Mass/Vol] 15.5 g/dL High 12.0-15.0 The [facility] Comment on above: Order Comment: No: D o not add to previous draw Performed By: #### 8 [id number] #### [facility] [address] [place] [address], [facility] IMMATURE GRANS 0.3 % Normal 0.0-1.0 The [facility] Comment on above: Order Comment: No: D o not add to previous draw Performed By: #### 8 [id number] #### [facility] [address] [place] [address], [facility] Lymphocytes (Bld) [#/Vol] 3.7 10*3/uL Normal 1.2-4.0 The [facility] Comment on above: Order Comment: No: D o not add to previous draw Performed By: #### 8 [id number] #### [facility] [address] [facility] [place] [address], [facility] Lymphocytes/100 WBC (Bld) 29.6 % Normal 20.0-45.0 The [facility] Comment on above: Order Comment: No: D o not add to previous draw Performed By: #### 8 [id number] #### [facility] [address] [facility] [place] [address], [facility] MCH (RBC) [Entitic mass] 28.8 pg Normal 27.0-33.0 The [facility] Comment on above: Order Comment: No: D o not add to previous draw Performed By: #### 8 [id number] #### [facility] [address] [facility] [place] [address], [facility] MCHC (RBC) [Mass/Vol] 32.3 g/dL Normal 32.0-35.0 The [facility] Comment on above: Order Comment: No: D o not add to previous draw Performed By: #### 8 [id number] #### [facility] [address] [place] [address], [facility] MCV (RBC) [Entitic vol] 89.1 fL Normal 82.0-98.0 The [facility] Comment on above: Order Comment: No: D o not add to previous draw Performed By: #### 8 [id number] #### [facility] [address] [place] [address], [facility] Monocytes (Bld) [#/Vol] 0.9 10*3/uL Normal 0.1-1.0 The [facility] Comment on above: Order Comment: No: D o not add to previous draw Performed By: #### 8 [id number] #### [facility] [address] [place] [address], [facility] MONOS 7.2 % Normal 5.0-12.0 The [facility] Comment on above: Order Comment: No: D o not add to previous draw Performed By: #### 8 [id number] #### [facility] [address] [place] [address], [facility] Neutrophils/100 WBC (Bld) 60.2 % Normal 40.0-72.0 The [facility] Comment on above: Order Comment: No: D o not add to previous draw Performed By: #### 8 [id number] #### [facility] [address] [place] [address], [facility] Nucleated RBC/100 WBC (Bld) [Ratio] 0 % Normal 0-0 The [facility] Comment on above: Order Comment: No: D o not add to previous draw Performed By: #### 8 [id number] #### [facility] [address] [place] [address], [place] PLAT CNT 366 10*3/uL Normal 150-400 The [facility] Comment on above: Order Comment: No: D o not add to previous draw Performed By: #### 8 [id number] #### [facility] [address] [place] [address], [place] RBC (Bld) [#/Vol] 5.39 10*6/uL High 3.80-5.00 The [facility] Comment on above: Order Comment: No: D o not add to previous draw Performed By: #### 8 [id number] #### [facility] [address] [place] [address], [facility] WBC (Bld) [#/Vol] 12.38 10*3/uL High 4.00-10.60 [facility] Comment on above: Order Comment: No: D o not add to previous draw Performed By: #### 8 [id number] #### [facility] [address] [place] [address], [place] COMP METABOLIC PANELon 03-29 Albumin [Mass/Vol] 4.1 g/dL Normal 3.5-5.7 [facility] Comment on above: Order Comment: No: D o not add to previous draw Performed By: #### 1 0, 75535 #### [facility] [address] [place] [address], [facility] ALKALINE PHOSPH 48 IU/L Normal 34-104 [facility] Comment on above: Order Comment: No: D o not add to previous draw Performed By: #### 1 0, 54929 #### [facility] [address] [place] [address], [place] ALT [Catalytic activity/Vol] 19 U/L Normal 7-52 The [facility] Comment on above: Order Comment: No: D o not add to previous draw Performed By: #### 1 0, 33524 #### [facility] [address] [place] [address], [place] AST [Catalytic activity/Vol] 19 U/L Normal 13-39 The [facility] Comment on above: Order Comment: No: D o not add to previous draw Performed By: #### 1 0, 63537 #### [facility] [address] [place] [address], [place] Bilirubin [Mass/Vol] 0.8 mg/dL Normal 0.3-1.0 The [facility] Comment on above: Order Comment: No: D o not add to previous draw Performed By: #### 1 0070, 57442 #### [facility] [address] [place] [address], [place] Calcium [Mass/Vol] 9.8 mg/dL Normal 8.6-10.3 [facility] Comment on above: Order Comment: No: D o not add to previous draw Performed By: #### 1 0, 34180 #### [facility] [address] [place] [address], [place] Chloride [Moles/Vol] 100 mmol/L Normal 98-107 The [facility] Comment on above: Order Comment: No: D o not add to previous draw Performed By: #### 1 0, 51404 #### [facility] [address] [place] [address], [place] CO2 [Moles/Vol] 26 mmol/L Normal 21-31 [facility] Comment on above: Order Comment: No: D o not add to previous draw Performed By: #### 1 0, 27800 #### [facility] [address] [place] [address], [place] Creatinine [Mass/Vol] 0.71 mg/dL Normal 0.60-1.20 The [facility] Comment on above: Order Comment: No: D o not add to previous draw Performed By: #### 1 0, 38709 #### [facility] [address] [place] [address], [place] GFR/1.73 sq M.predicted among blacks MDRD (S/P/Bld) [Vol rate/Area] mL/min/{1.73_m2} Normal >60 The [facility] Comment on above: Order Comment: No: D o not add to previous draw Performed By: #### 1 0070, 02210 #### [facility] [address] [place] [address], [place] GFR/1.73 sq M.predicted among non-blacks MDRD (S/P/Bld) [Vol rate/Area] mL/min/{1.73_m2} Normal >60 The [facility] Comment on above: Order Comment: No: D o not add to previous draw Performed By: #### 1 0, 67467 #### [facility] [address] [place] [address], [place] Glucose [Mass/Vol] 107 mg/dL High 70-100 The [facility] Comment on above: Order Comment: No: D o not add to previous draw Performed By: #### 1 0, 31643 #### [facility] [address] [place] [address], [place] Potassium [Moles/Vol] 3.9 mmol/L Normal 3.5-5.1 The [facility] Comment on above: Order Comment: No: D o not add to previous draw Performed By: #### 1 69, 74642 #### [facility] [address] [place] [address], [place] Protein [Mass/Vol] 7.5 g/dL Normal 6.0-8.3 The [facility] Comment on above: Order Comment: No: D o not add to previous draw Performed By: #### 1 69, 05835 #### [facility] [address] [place] [address], [place] Sodium [Moles/Vol] 136 mmol/L Normal 136-145 The [facility] Comment on above: Order Comment: No: D o not add to previous draw Performed By: #### 1 0, 41532 #### [facility] [address] [place] [address], [place] Urea nitrogen [Mass/Vol] 12 mg/dL Normal 7-25 The [facility] Comment on above: Order Comment: No: D o not add to previous draw Performed By: #### 1 0, 40748 #### [facility] [address] D DIMER TESTon 03-29-2020 D-DIMER TEST <0.27 Low 0.27-0.49 The [facility] Comment on above: Order Comment: No: D o not add to previous draw Result Comment: D-Di elisa values of less than 0.50 ug/ml (FEU) are considered to be a negative predictor of thrombosis. However, the D-Dimer result should be used in conjunction with pretest probability and should not be used alone to diagnose a thrombotic event. Performed By: #### 1 0070, 14356 #### [facility] [address] HEMOGLOBIN A1Con 03-29-2020 Glucose [Moles/Vol] 111 mmol/L Normal The [facility] Comment on above: Order Comment: No: D o not add to previous draw Performed By: #### 3 1791 #### [facility] [address] HbA1c (Bld) [Mass fraction] 5.5 % Normal 4.0-6.0 The [facility] Comment on above: Order Comment: No: D o not add to previous draw Performed By: #### 3 1791 #### [facility] [address] MAGNESIUM BLOODon 03-29-2020 Magnesium [Mass/Vol] 2.0 mg/dL Normal 1.9-2.7 The [facility] Comment on above: Order Comment: No: D o not add to previous draw Performed By: #### 1 0070, 60905 #### [facility] [address] PROTHROMBIN TIMEon 0 INR Coag (PPP) [Relative time] 1.84 {INR} High 0.91-1.16 The [facility] Comment on above: Order Comment: No: D o not add to previous draw Result Comment: ACCC P RECOMMENDED INR FOR WARFARIN THERAPY ------ ------- CONDITION INR PROPHYLAXIS OF VENOUS THROMBOSIS 2-3 (HIGH-RISK SURGERY) TREATMENT OF VENOUS THROMBOSIS 2-3 TREATMENT OF PULMONARY EMBOLISM 2-3 PREVENTION OF SYSTEMIC EMBOLISM: 2-3 ACUTE MYOCARDIAL INFARCTION TISSUE HEART VALVES VALVULAR HEART DISEASE ATRIAL FIBRILLATION RECURRENT SYSTEMIC EMBOLISM MECHANICAL HEART VALVE 2.5-3.5 FROM: ORAL ANTICOAGULANTS. MECHANISM OF ACTION, CLINICAL EFFECTIVENESS, AND OPTIMAL THERAPEUTIC RANGE. CHEST 1995;108:231S-246S. Performed By: #### 8 5499 #### [facility] [address] PT Coag (PPP) [Time] 21.3 s High 12.3-14.8 [facility] Comment on above: Order Comment: No: D o not add to previous draw Result Comment: ALL RESULTS MUST BE INTERPRETED WITH RESPECT TO BLOOD DRAWING ARTIFACT OR DILUTION ERROR OF ANTICOAGULANT AT THE TIME OF SAMPLING. Performed By: #### 8 [id number] #### [facility] [address] TROPONIN-Ion 03-29-2020 Troponin I.cardiac [Mass/Vol] 0.00 ng/mL Normal 0.00-0.04 The [facility] Comment on above: Order Comment: No: D o not add to previous draw Result Comment: REFE RENCE RANGES: 0.00 - 0.14 ng/ml NEGATIVE 0.15 - 0.25 ng/ml INDETERMINATE > 0.25 ng/ml INDICATIVE OF AN M.I. Performed By: #### 1 0070, 99705 #### [facility] [address] [place] [address], [facility] TSH3on 03-29-2020 TSH 3RD GENERATION 3.72 uIU/mL Normal 0.34-5.60 The [facility] Comment on above: Order Comment: No: D o not add to previous draw Performed By: #### 1 0070, 63105 #### [facility] [address] Vital Signs Date Time Vital Sign Value Performing Clinician Faci lity 06-18-2023 09:43-0500 Diastolic blood pressure 101 mm[Hg] Harleen Ly DO Work Phone: [facility] 06-18-2023 09:43-0500 Respiratory rate 16 /min Harleen Ly DO Work Phone: [facility] 06-18-2023 09:43-0500 SaO2% (BldA) [Mass fraction] 97 % Harleen Ly DO Work Phone: [facility] 06-18-2023 09:43-0500 Systolic blood pressure 161 mm[Hg] Harleen Ly DO Work Phone: [facility] 06-18-2023 09:23-0500 Body temperature 97 [degF] Harleen Ly DO Work Phone: [facility] 06-18-2023 07:49-0500 Body height 172.7 cm Harleen Ly DO Work Phone: [facility] 06-18-2023 07:49-0500 Body weight 144.7 kg Harleen Ly DO Work Phone: [facility] 04-29-2023 11:43-0500 Body weight 144.7 kg Harleen Ly DO Work Phone: [facility] 04-29-2023 11:43-0500 Diastolic blood pressure 80 mm[Hg] Harleen Ly DO Work Phone: [facility] 04-29-2023 11:43-0500 Heart rate 78 /min Harleen Ly DO Work Phone: [facility] 04-29-2023 11:43-0500 Systolic blood pressure 140 mm[Hg] Harleen Ly DO Work Phone: [facility] 04-03-2023 07:55-0500 Body height 172.72 cm Kailaamando Goldstein Work Phone: [facility] 04-03-2023 07:55-0500 Body weight 143.33 kg Kaila Sarmientoz Work Phone: [facility] Encounters Encounter Date Encounter Type Care Provider Facility Start: 06-18-2023 ambulatory YANN GONSALEZKIMROSITA Sherron ty:[facility] Start: 06-18-2023 End: 06-18-2023 Subsequent hospital visit by physician Harleen Jones DO Work Phone: Procedures Comment on above: History of colon marcelo yps [Z86.010] Start: 06-12-2023 End: 06-12-2023 ambulatory [facility] Start: 05-04-2023 End: 05-04-2023 ambulatory KAILA GOLDSTEIN Not Available Start: 04-29-2023 End: 04-29-2023 ambulatory HARLEEN LY Facility:[facility] Start: 04-29-2023 End: 04-29-2023 Patient encounter procedure Harleen Ly DO Work Phone: Gastroenterology Comment on above: History of colon marcelo yps (Primary Dx) Start: 04-21-2023 Telephone encounter Carmen Jacob MD Work Phone: Gastroenterology Comment on above: Appointment Start: 04-03-2023 End: 04-03-2023 ambulatory Kaila Goldstein Facility:[facility] Start: 04-03-2023 End: 04-03-2023 ambulatory Kailaamando Goldstein Work Phone: [facility] Work Phone: Start: 04-03-2023 End: 04-03-2023 Patient encounter procedure Kaila Goldstein Work Phone: [facility] Work Phone: Start: 03-13-2023 ambulatory Facility:[facility] Start: 12-03-2022 End: [facility]: 09-15-2022 End: 09-16-2022 ambulatory NYDIA GOLDSTEIN Facility: Start: 05-01-2022 End: 05-01-2022 ambulatory TAN[employer]ED [employer] WORKER KAILA GOLDSTEIN Facility:[facility] Start: 03-13-2022 End: 03-14-2022 ambulatory TAN[employer]ED [employer]ARN WORKER KAILA GOLDSTEIN Facility: Start: 11-02-2020 End: 11-03-2020 ambulatory KAILA GOLDSTEIN Facility:[facility] Start: 07-26-2020 End: 07-27-2020 ambulatory KAILA GOLDSTEIN Facility:[facility] Start: 04-16-2020 End: 04-23-2020 Evaluation and management of inpatient LULU DEE Facility:[facility] Start: 03-29-2020 End: 04-01-2020 Evaluation and management of inpatient YINA MAKI Facility:[facility] Procedures Date Procedure Procedure Detail Performing Clinician Start: 06-18-2023 Colonoscopy flx dx w /collj spec when pfrmd Harleen Ly DO Work Phone: Start: 06-18-2023 Gluc bld gluc mntr d ev cleared fda spec home use Yann Kuhn MD Work Phone: Start: 06-18-2023 Colonoscopy Harleen Ly DO Work Phone: Start: 04-03-2023 Positron emission tomography with computed tomography Kaila Gomesreinajosi Work Phone: Start: 11-02-2020 Colonoscopy w/biopsy single/multiple YASEEN ALASTAL Start: 11-02-2020 Colonoscopy Harleen Ly DO Work Phone: Start: 04-23-2020 EXCISION OF RECTUM, ENDO, DIAGN YASEEN ALASTAL Start: 04-23-2020 EXCISION OF SIGMOID COLON, ENDO, DIAGN YASEEN ALASTAL Start: 03-30-2020 INTRODUCTION OF OTHE R GAS INTO RESP TRACT, VIA OPENING SARMED SHANTHI Start: 03-30-2020 FLUOROSCOPY OF MULTI PLE CORONARY ARTERIES USING OTH CONTRAST [place] [place] Plan of Treatment Date Care Activity Detail Author Start: 06-18-2024 Screening for malign ant neoplasm of colon [facility] Start: 05-18-2023 Advance Directive Discussion Advance Directive Discussion [facility] Start: 05-18-2023 Depression Assessment Depression Ass essment [facility] Start: 01-16-2023 Covid-19 Vaccine () Covid-19 Vaccine () [facility] Start: 01-16-2023 Influenza vaccination Influenza Vacc ine (#1) [facility] Start: 05-18-2022 Advance Directive Discussion Advance Directive Discussion [facility] Start: 05-18-2022 Depression Assessment Depression Ass essment [facility] Start: 11-02-2021 Screening for malign ant neoplasm of colon [facility] Start: 2021 Bone Density Screening Bone Density Screening [facility] Start: 2021 Pneumococcal Vaccine : 65+ (1 - PCV) Pneumococcal Vaccine: 65+ (1 - PCV) [facility] Start: 2021 Screening for osteoporosis Bone Density Screening [facility] Start: 2016 RSV Vaccine (1 - 1-d ose 60+ series) RSV Vaccine (1 - 1-dose 60+ series) [facility] Start: 2006 Shingrix Vaccine (1 of 2) Shingrix Vaccine (1 of 2) [facility] Start: 2001 Cologuard (FIT-DNA) Cologuard (FIT-D NA) [facility] Start: 2001 Colonoscopy Colonoscopy [facility] Start: 2001 Colorectal Cancer Screening Colorectal Cancer Screening [facility] Start: [address] Colonography [facility] Start: 2001 Diabetes Screening Diabetes Screenin g [facility] Start: 2001 Fecal Occult Blood Fecal Occult Bloo d [facility] Start: 2001 Lipid 1996 panel - S norma or Plasma Lipid Screening [facility] Start: 2001 Lipid panel Lipid Screening [facility] Start: 2001 Screening for malign ant neoplasm of colon [facility] Start: 2001 Sigmoidoscopy Sigmoidoscopy [facility] Start: 1996 Mammography Mammogram Screening [facility] Start: 1996 Screening for malign ant neoplasm of breast Mammogram Screening [facility] Start: 09-30-1975 Urine microalbumin profile DTaP,Tdap,Td Vaccine (1 - Tdap) [facility] Start: 1974 Annual PCP Team Manager Transition michelle Disease Visit Annual PCP Team Chronic Disease Visit [facility] Start: 1974 BP Controlled (<130/80) BP Controlle d (<130/80) [facility] Start: 1974 Hepatitis C Screening Hepatitis C [facility] Start: 1974 Hepatitis C screening Hepatitis C [facility] Start: 1962 Pneumococcal Vaccine : 65+ (1 of 2 - PCV) Pneumococcal Vaccine: 65+ (1 of 2 - PCV) [facility] Start: 04-01-1957 Covid-19 Vaccine (#1) Covid-19 Vacci ne (#1) [facility] End: 04-29-2024 Screening colonoscopy COLONOSCOPY SCREENING Endoscopy Routine History of colon polyps 1 Occurrences starting 04/29/2023 until 04/29/2024 [facility] Work Phone: Comment on above: 1 Occurrences starti ng 04/29/2023 until 04/29/2024 SURGICAL PATHOLOGY [facility] Work Phone: Comment on above: Release Upon Abdifatah g for 1 Occurrences [facility] 06[facility]18/2023[facility] Date Payer Category Payer Self-pay 2022 Medicare [id number] 2022-Present [phone] [address] [place] [address] O [id number] 2020 Unknown [id number] 1959 Medicare [id number] 1955 Unknown [id number] 1956 Unknown [id number] 1956 Unknown [id number] 1956 Unknown [id number] 1956 Unknown [id number] 1956 Unknown [id number] 1956 Unknown [id number] 1956 Unknown [id number] Unknown [id number] Unknown [id number] Social History Date Type Detail Facility Tobacco smoking stat [facility] Unknown if ever smoked [facility] Work Phone: Start: 1955 Sex Assigned At Female F [facility] Tobacco smoking stat [facility] Tobacco smoking consumption unknown [facility] Start: 1955 Sex Assigned At Not on file C [facility] Start: 04-29-2023 Gender identity Not on file [facility] Start: 04-29-2023 [facility] Start: 05-18-1975 End: 05-18-2007 History of tobacco use Current smoker [facility] Start: 05-18-1975 End: 05-18-2007 History of tobacco use Cigarette Smoker [facility] Start: 04-29-2023 Cigarettes smoked current (pack per day) - Reported 1.5 [facility] Start: 04-29-2023 Tobacco use and exposure Smokeless tobacco non-user [facility] National Score (1-10 0), lower number is lower risk 91 [facility] Clinical Notes 04-01-2020 to 06-18-2023 Harleen Jones DO - 06/18/2023 9:00 AM Harleen Suresh DO - 04/29/2023 12:20 PM ESTPatient InstructionsTelephone Encounter - Elly Dumont - 04/21/2023 2:50 PM EST Note Date & Type Note Facility 06-18-2023 History and physical note HISTORY AND PHYSICAL Hortensia Bates, 67 year old female Current history and physical on file: No Is a new History and Physical required for today's visit? Yes Indication for procedure: History of colon polyps PROCEDURE(S) SCHEDULED FOR: Colonoscopy with or without biopsies and with or without removal of polyps or lesions, dilation (any means), treatment of bleeding (any means), based on clinical findings. BASELINE BEHAVIOR: Calm BASELINE ORIENTATION: A & O x3 All medications and allergies reviewed: Yes Skin Assessment: Warm dry mucus membranes pink Airway/Respiratory Assessment: Airway: visualization of the uvula- Yes Mouth: opening greater than 2 fingerbreadths- Yes Neck: full range of motion- Yes Breath sounds clear/equal- Yes Cardiac Assessment: Regular rate and rhythm without murmur Abdominal Assessment: Abdomen soft, non-tender, no masses or organomegaly. Sedation Plan: MAC Additional Comments: None Harleen Jones DO documented in this encounter [facility] 06-12-2023 Note Continue statin- lip itor 10 mg daily [facility] 06-12-2023 Note Hypertension is stab le b/p 136/83 continue losartan, aldactone, and toprl [facility] 06-12-2023 Note RCRI 0???points Class I Risk 3.9???% 30-day risk of , CO, or cardiac arrest From a cardiac perspective pt may proceed with colonoscopy, she is a low risk for a low risk procedure. She may hold elquis for 2-3 days prior and resume post op, with the knowledge that there is a risk for stroke with holding anticoagulation. Please monitor hemodynamics carefully and prevent any major fluid shifts. [facility] 06-12-2023 Note [facility] CARDIOLOGY PROGR ESS NOTE HPI: Hortensia Bates is a 67 y.o. female here for routine f/u HPI past medical history of persistent atrial fibrillation status post ablation in 2020, hyperlipidemia and hypertension seen in follow-up. Patient here for 6 mo follow up persistent afib, hypertension, and hyperlipidemia. She denies chest pain, SOB, lightheadedness/syncope, palpitations, and bleeding on Eliquis. She is scheduled for colonoscopy on 06/18 with [facility] and needs permission to hold Eliquis. Review of Systems Cardiovascular: Positive for leg swelling (minimal, resolves by morning). 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 female who is followed in cardiology clinic for hypertension, hyperlipidemia, and atrial fibrillation status post ablation. Update: 05/28/2022 She presents today for follow-up. She states that she is doing very well. She denies any cardiac complaints or concerns. She denies any chest pain or shortness of breath. She denies any lower extremity CORNELIO, orthopnea, paroxysmal nocturnal dyspnea. No palpitations. No dizziness or lightheadedness. No near-syncope or syncope. No difficulty with medications. No bleeding. Update: 12/03/2022 She has been doing well Had lost 30 Ibs on Ozempic but no longer covered by insurance Is uncertain about weight loss surgery She just learned has a colonic mass this morning Denies chest pain, dyspnea on exertion or palpitations Visit Vitals BP 136/83 (BP Location: Right wrist, Patient Position: Sitting) Pulse 68 Ht 1.727 m (5' 8 ) Wt (!) 145 kg (320 lb) SpO2 98% BMI 48.66 kg/m??? Smoking Status Former BSA 2.64 m??? Allergies Allergen Reactions Thiazides Medications: Current Outpatient Medications on File Prior to Visit Medication Sig Dispense Refill allopurinol (Zyloprim) 100 mg tablet allopurinol 100 mg tablet TAKE 1 TABLET BY MOUTH EVERY DAY apixaban (Eliquis) 5 mg tablet Take 1 tablet (5 mg) by mouth in the morning and at bedtime. 60 tablet 11 atorvastatin (Lipitor) 10 mg tablet atorvastatin 10 mg tablet TAKE 1 TABLET BY MOUTH EVERY DAY IN THE EVENING calcium 500 mg calcium (1,250 mg) tablet Take 1 tablet by mouth in the morning. levothyroxine (Synthroid, Levoxyl) 100 mcg tablet levothyroxine 100 mcg tablet TAKE 1 TABLET BY MOUTH EVERY DAY losartan (Cozaar) 50 mg tablet losartan 50 mg tablet TAKE 1 TABLET BY MOUTH EVERY DAY metFORMIN (Glucophage) 500 mg tablet metformin 500 mg tablet TAKE 1 TABLET BY MOUTH EVERY DAY metoprolol succinate XL (Toprol-XL) 25 mg 24 hr tablet metoprolol succinate ER 25 mg tablet,extended release 24 hr TAKE 1 TABLET BY MOUTH EVERY DAY multivitamin tablet Take 1 tablet by mouth in the morning. [DISCONTINUED] rivaroxaban (Xarelto) 20 mg tablet Take 1 tablet by mouth in the morning. No current facility-administered medications on file prior to visit. Physical Exam: Constitutional: Appearance: Normal appearance. Without apparent distress, obese HENT: Head: Normocephalic and atraumatic. Nose: Nose normal. Mouth/Throat: Mouth: Mucous membranes are moist. Eyes: Extraocular Movements: Extraocular movements intact. Conjunctiva/sclera: Conjunctivae normal. Neck: Vascular: No JVD. Cardiovascular: Rate and Rhythm: Normal rate and regular rhythm. Pulses: Dorsalis pedis pulses are 3 on the right side and 3on the left side. Posterior tibial pulses are 3 on the right side and 3 on the left side. Heart sounds: Normal heart sounds, S1 normal and S2 normal. Pulmonary: Effort: Pulmonary effort is normal. Breath sounds: Normal breath sounds. Abdominal: General: Bowel sounds are normal. Palpations: Abdomen is soft. Musculoskeletal: General: Normal range of motion. Cervical back: Normal range of motion. Right lower leg: No edema. Left lower leg: No edema. Skin: General: Skin is warm and dry. Capillary Refill: Capillary refill takes less than 2 seconds. Neurological: General: No focal deficit present. Mental Status: he is alert and oriented to person, place, and time. Psychiatric: Mood and Affect: Mood normal. Behavior: Behavior normal. Thought Content: Thought content normal. Judgment: Judgment normal. Labs: 05/15/23 Renal function normal, K+ normal GFR normal, A1C 6.0 stable 09/16/2022 WBC 9, hemoglobin 13.6, hematocrit 41.4, platelets 285 Sodium 138, potassium 4, chloride 106, CO2 26.4, BUN 21, serum creatinine 0.8, estimated GFR greater than 60%, AST 17, ALT 30, ALP 53 TSH: t3.836 (0.7-1.46) Hemoglobin A1c: 6% 09/12/2021 Total cholesterol 153, HDL 48, triglycerides 84, LDL 88.2 Imaging and other tests EKG today Normal sinus rhythm - normal ECG Pulmonary vein isolation comprehensive EP study: 07/26/2020 Persistent atrial fibrillation status post PVI Atrial flutter status post CTI ablation EP study revealing no retrograde accessory pathway High normal LA f (more content not included)... [facility] 06-12-2023 Note Patient here for 6 m o follow up persistent afib, hypertension, and hyperlipidemia. She denies chest pain, SOB, lightheadedness/syncope, palpitations, and bleeding on Eliquis. She is scheduled for colonoscopy on 06/18 with [facility] and needs permission to hold Eliquis. Review of Systems Cardiovascular: Positive for leg swelling (minimal, resolves by morning). All other systems reviewed and are negative. [facility] 06-12-2023 Note PNP2BG1 VASc= 4 Continue anticoagulation with eliquis- will need to hold 2-3 days for colonoscopy Monitor for s/s of bleeding Continue toprol, rate controlled and remains in NSR [facility] 04-29-2023 Note HNO ID: [id number] Author: Harleen Jones DO Service: ? Author Type: Physician Type: Progress Notes Filed: 04/29/2023 12:49 PM Note Text: Chief Compliant: Consultation requested by Dr. 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 My final recommendations will be communicated back to the requesting physician by way of shared Medical record or letter to requesting physician via US mail. HPI: Hortensia Bates is a 67 year old female with PMH significant for hypothyroid, DM, afib on eliquis, HTN, HLD, obesity, hx of colon polyps who presents for h/o colon polyps. Pt reports being in the hospital for afib in 2019. She developed rectal bleeding. Colonoscopy done for this with polyp removed which pt states was benign. Had repeat colonoscopy in 6 months which she says was fine. Due for repeat colonoscopy at this time. She feels well from GI standpoint. States she has a bm daily. Does feel like she is emptying but does note that they did mention to her that she was not clean with her last two colonoscopies. Denies any LEW, dizziness, fevers, chills, nausea, vomiting, GERD, dysphagia, sob, cp, palpitations, abd pain, diarrhea, constipation, change in bowels, signs of bleeding, anorexia, wt loss. No fam hx of colon cancer or other GI malignancy. No records available in [employer] or [employer] regarding this office visit. ALLERGIES Allergen Reactions Spironolactone Hives Thiazides Hives apixaban (ELIQUIS) 5 mg tab(s) Take 5 mg by mouth two times a day. levothyroxine (SYNTHROID) 100 mcg tablet Levothyroxine Sodium metFORMIN ER (FORTAMET) 500 mg 24 hr tablet metFORMIN HCl multivit-minerals/folic acid (CENTRUM ADULTS ORAL) Centrum losartan (COZAAR) 50 mg tablet Losartan Potassium metoprolol succinate ER (TOPROL XL) 25 mg 24 hr tablet Metoprolol Succinate allopurinol (ZYLOPRIM) 100 mg tablet Allopurinol atorvastatin (LIPITOR) 10 mg tablet Atorvastatin Calcium calcium carbonate/vitamin D3 (CALCIUM 500 + D ORAL) Take by mouth. peg 3350-Electrolytes (GOLYTELY) 236-22.74-6.74 -5.86 gram suspension Take 4,000 mL by mouth one time only for 1 dose. HISTORIES: No family history on file. No past medical history on file. No past surgical history on file. Social History Tobacco Use Smoking status: Former Packs/day: 1.5 Types: Cigarettes Start date: 1975 Quit date: 2007 Years since quittin.9 Smokeless tobacco: Never REVIEW OF SYSTEMS: General:No weight loss, malaise or fevers Respiratory: Negative for cough, hemoptysis, wheezing or shortness of breath Cardiovascular: Negative for chest pain, leg swelling or palpitations Gastrointestinal: as per HPI, otherwise negative Genitourinary: No history of dysuria, frequency or incontinence Musculoskeletal: Negative for joint pain or swelling, back pain or muscle pain Neurologic:Negative for focal numbness or weakness, headaches and dizziness or syncope. Skin:Negative for lesions, rash, and itching Psychiatric: Negative for sleep disturbance, mood disorder and recent psychosocial stressors. Hematologic/Lymph:Negative for prolonged bleeding, bruising easily or swollen nodes Endocrine: Negative for cold or heat intolerance, polyuria, polydipsia and goiter PHYSICAL EXAMINATION: BP 140/80 Pulse 78 Wt 319 lb (144.7kg) General appearance: Well appearing, alert, in no acute distress, well-hydrated, well nourished. Skin: Skin color, texture, turgor normal, no suspicious rashes or lesions Head: Normocephalic, no masses, lesions, tenderness or abnormalities Eyes: Anicteric sclera. Pupils are equally round and reactive to light. Extraocular movements are intact. Ears: External ears normal, Nose/Sinuses: Nares normal, no drainage or sinus tenderness Neck: Supple, no adenopathy; Lungs: Lungs clear to auscultation. No wheezing, rhonchi, rales Heart: RRR without murmur, gallop, or rubs. Abdomen: Normal abdominal exam, Abdomen soft, non-tender. Bowel sounds normal. No masses, organomegaly Extremities: No deformities, edema, skin discoloration, clubbing or cyanosis. Musculoskeletal: No joint swelling, deformity, or tenderness Neuro: Gait normal. No focal deficit. Sensation grossly intact. ASSESSMENT/PLAN Patient is a 67 year old year old female with PMH significant for hypothyroid, DM, afib on eliquis, HTN, HLD, obesity, hx of colon polyps who presents for h/o colon polyps as described above. No records available but based on what pt is saying, I suspect it was a larger polyp which would require a 3 yr or less follow up. I have personally reviewed the labs, current meds, allergies, PMH, PSH, FH, and SH that was documented by the RN and changes made as needed. Problem List Items Addressed This Visit None Visit Diagnoses History of colon polyps - Primary Relevant Orders COLONOSCOPY SCREENING -obtain records from her prior colonoscopy -schedule colonoscopy at [facility]. 2 day bowel p (more content not included)... [facility] 04-29-2023 History of Presen t illness Narrative Chief Compliant: Consultation requested by Dr. 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 My final recommendations will be communicated back to the requesting physician by way of shared Medical record or letter to requesting physician via US mail. HPI: Hortensia Bates is a 67 year old female with PMH significant for hypothyroid, DM, afib on eliquis, HTN, HLD, obesity, hx of colon polyps who presents for h/o colon polyps. Pt reports being in the hospital for afib in 2020. She developed rectal bleeding. Colonoscopy done for this with polyp removed which pt states was benign. Had repeat colonoscopy in 6 months which she says was fine. Due for repeat colonoscopy at this time. She feels well from GI standpoint. States she has a bm daily. Does feel like she is emptying but does note that they did mention to her that she was not clean with her last two colonoscopies. Denies any LEW, dizziness, fevers, chills, nausea, vomiting, GERD, dysphagia, sob, cp, palpitations, abd pain, diarrhea, constipation, change in bowels, signs of bleeding, anorexia, wt loss. No fam hx of colon cancer or other GI malignancy. No records available in [employer] or [employer] regarding this office visit. ALLERGIES Allergen Reactions Spironolactone Hives Thiazides Hives apixaban (ELIQUIS) 5 mg tab(s) Take 5 mg by mouth two times a day. levothyroxine (SYNTHROID) 100 mcg tablet Levothyroxine Sodium metFORMIN ER (FORTAMET) 500 mg 24 hr tablet metFORMIN HCl multivit-minerals/folic acid (CENTRUM ADULTS ORAL) Centrum losartan (COZAAR) 50 mg tablet Losartan Potassium metoprolol succinate ER (TOPROL XL) 25 mg 24 hr tablet Metoprolol Succinate allopurinol (ZYLOPRIM) 100 mg tablet Allopurinol atorvastatin (LIPITOR) 10 mg tablet Atorvastatin Calcium calcium carbonate/vitamin D3 (CALCIUM 500 + D ORAL) Take by mouth. peg 3350-Electrolytes (GOLYTELY) 236-22.74-6.74 -5.86 gram suspension Take 4,000 mL by mouth one time only for 1 dose. HISTORIES: No family history on file. No past medical history on file. No past surgical history on file. Social History Tobacco Use Smoking status: Former Packs/day: 1.5 Types: Cigarettes Start date: 1975 Quit date: 2008 Years since quittin.9 Smokeless tobacco: Never REVIEW OF SYSTEMS: General:No weight loss, malaise or fevers Respiratory: Negative for cough, hemoptysis, wheezing or shortness of breath Cardiovascular: Negative for chest pain, leg swelling or palpitations Gastrointestinal: as per HPI, otherwise negative Genitourinary: No history of dysuria, frequency or incontinence Musculoskeletal: Negative for joint pain or swelling, back pain or muscle pain Neurologic:Negative for focal numbness or weakness, headaches and dizziness or syncope. Skin:Negative for lesions, rash, and itching Psychiatric: Negative for sleep disturbance, mood disorder and recent psychosocial stressors. Hematologic/Lymph:Negative for prolonged bleeding, bruising easily or swollen nodes Endocrine: Negative for cold or heat intolerance, polyuria, polydipsia and goiter PHYSICAL EXAMINATION: BP 140/80 Pulse 78 Wt 319 lb (144.7kg) General appearance: Well appearing, alert, in no acute distress, well-hydrated, well nourished. Skin: Skin color, texture, turgor normal, no suspicious rashes or lesions Head: Normocephalic, no masses, lesions, tenderness or abnormalities Eyes: Anicteric sclera. Pupils are equally round and reactive to light. Extraocular movements are intact. Ears: External ears normal, Nose/Sinuses: Nares normal, no drainage or sinus tenderness Neck: Supple, no adenopathy; Lungs: Lungs clear to auscultation. No wheezing, rhonchi, rales Heart: RRR without murmur, gallop, or rubs. Abdomen: Normal abdominal exam, Abdomen soft, non-tender. Bowel sounds normal. No masses, organomegaly Extremities: No deformities, edema, skin discoloration, clubbing or cyanosis. Musculoskeletal: No joint swelling, deformity, or tenderness Neuro: Gait normal. No focal deficit. Sensation grossly intact. ASSESSMENT/PLAN Patient is a 67 year old year old female with PMH significant for hypothyroid, DM, afib on eliquis, HTN, HLD, obesity, hx of colon polyps who presents for h/o colon polyps as described above. No records available but based on what pt is saying, I suspect it was a larger polyp which would require a 3 yr or less follow up. I have personally reviewed the labs, current meds, allergies, PMH, PSH, FH, and SH that was documented by the RN and changes made as needed. Problem List Items Addressed This Visit None Visit Diagnoses History of colon polyps - Primary Relevant Orders COLONOSCOPY SCREENING -obtain records from her prior colonoscopy -schedule colonoscopy at [facility]. 2 day bowel prep. Procedure/risks were discussed with the patient in great detail including but not limited to the risk of sedation, bleeding, perforation, infection, and missed lesions. Patient agreed to proceed. -fiber rich diet Harleen Jones DO Follow Up: No follow-ups on file. documented in this encounter [facility] 04-29-2023 Instructions Harleen Jones DO - 04/29/2023 12:04 PM EST Images from the original note were not included. Bowel Preparation Instructions for: Miralax-Gatorade Preparations IF YOU DO NOT FOLLOW THESE DIRECTIONS, YOUR COLONOSCOPY WILL BE CANCELLED. Cerda Instructions: Your bowel must be empty so that your doctor can clearly view your colon. Follow all of the instructions in this handout EXACTLY as they are written. Do NOT eat any solid food the ENTIRE day before your colonoscopy. Buy your bowel preparation at least 5 days before your colonoscopy. Four (4) Dulcolax laxative tablets containing 5mg of bisacodyl each (NOT Dulcolax stool softener) One (1) 8.3oz. bottle Miralax (238 grams) or generic equivalent 2 x 32oz. Bottles of Gatorade (NOT RED) Diabetic Patients: Use G2 (Gatorade 2) TRANSPORTATION on the Day of Your Exam A responsible adult MUST be present with you at Check In prior to your colonoscopy and REMAIN in the endoscopy area until you are discharged. You are NOT ALLOWED to drive, take a taxi or bus, or leave the Endoscopy Center ALONE. If you do not have a responsible truck driver flatbed (family member or friend) with you to take you home, your exam cannot be done with sedation and will be cancelled. Please bring a list of all of your current medications, including any [id number] medications with you. Medications If you take insulin, diabetic medications or blood thinners such as Coumadin (warfarin), Plavix (clopidogrel), Ticlid (ticlopidine hydrochloride), Agrylin (anagrelide), Xarelto (Rivaroxaban), Pradaxa (Dabigatran), Eliquis (Apixaban), and Effient (Prasugrel). You MUST call the doctors who orders those medicines for instructions on altering the dosage before your colonoscopy. All other medications should be taken the day of the exam with a sip of water including ASPIRIN. Five (5) Days Before Your Colonoscopy Do NOT take medicines that stop diarrhea - such as Imodium, Kaopectate, or Pepto Bismol. Do NOT take fiber supplements - such as Metamucil, Citrucel, or Perdiem. Do NOT take products that contain iron - such as multi-vitamins (the label lists what is in the products). Three (3) Days Before Your Colonoscopy Do NOT eat high-fiber foods - such as popcorn, beans, seeds (flax, sunflower, quinoa), multigrain bread, nuts, salad/vegetables, or fresh and dried fruit. 1 Bowel Preparation Instructions for: Miralax-Gatorade Preparations One (1) Day Before Your Colonoscopy Only drink clear liquids the ENTIRE DAY before your colonoscopy. Do NOT eat any solid foods. Drink at least 8 ounces of clear liquids every hour after waking up. The clear liquids you can drink include: Clear Liquid (NO RED LIQUIDS) DO NOT DRINK Gatorade, Pedialyte or Powerade Clear broth or bouillon Coffee or tea (no milk or non-dairy creamer) Carbonated and non-carbonated soft drinks Soto-Aid or other fruit flavored drinks Strained fruit juices (no pulp) Jell-O, popsicles, hard candy Water Alcohol Milk or non-dairy creamers Noodles or vegetables in soup Juice with pulp Liquid you cannot see through Do not use tobacco/vaping products Mix 1/2 of Miralax bottle (119 grams) in each 32 ounces of Gatorade bottle until dissolved. Keep cool in the refrigerator. DO NOT ADD ICE. The bowel preparation solution will be consumed in two parts. Part 1 5:00 PM - Evening before your colonoscopy Take 4 Dulcolax tablets. 6 PM - Evening before your colonoscopy Drink 32 oz. of the mixed solution. Drink an 8 oz. glass of bowel preparation every 15 minutes for a total of 4 glasses. Fifteen (15) minutes later, drink an 8 oz. glass of of clear liquids every 15 minutes for a total of 2 glasses. You may continue to drink clear liquids till midnight. Part 2 On the day of your colonoscopy you may drink clear liquids up to (three) 3 hours prior to procedure. 4 1/2 hours before your colonoscopy Take another 32 oz. bottle of mixed solution. Drink an 8 oz. glass of bowel prep every 15 minutes for a total of 4 glasses. Fifteen (15) minutes later, drink an 8 oz. glass of clear liquids every 15 minutes for a total of 2 glasses. You may continue to drink clear liquids up to (three) 3 hours before your exam. 2 04/2019 documented in this encounter [facility] 04-21-2023 Miscellaneous Notes Pt's VM is full and there is no active MC Cannot inform pt 05/28 appt w/Kristel was canceled If pt calls back an attempt was made to contact her [place] 04/21/23 documented in this encounter [facility] 12-03-2022 Note Cardiology Clinic No te Subjective Hortensia Bates is a 67 y.o. year old female patient with past medical history of persistent atrial fibrillation status post ablation in 2020, hyperlipidemia and hypertension seen in follow-up. Patient Active Problem List Diagnosis Palpitations Persistent atrial fibrillation (CMS/HCC) Family History Problem Relation Name Age of Onset No Known Problems Mother No Known Problems Father Social History Tobacco Use Smoking status: Former Types: Cigarettes Quit date: 05/18/2007 Years since quittin.5 Smokeless tobacco: Never Substance Use Topics Alcohol use: Not Currently HPI Hortensia Bates is a 66 y.o. female who is followed in cardiology clinic for hypertension, hyperlipidemia, and atrial fibrillation status post ablation. Update: 05/28/2022 She presents today for follow-up. She states that she is doing very well. She denies any cardiac complaints or concerns. She denies any chest pain or shortness of breath. She denies any lower extremity CORNELIO, orthopnea, paroxysmal nocturnal dyspnea. No palpitations. No dizziness or lightheadedness. No near-syncope or syncope. No difficulty with medications. No bleeding. Update: 12/03/2022 She has been doing well Had lost 30 Ibs on Ozempic but no longer covered by insurance Is uncertain about weight loss surgery She just learned has a colonic mass this morning Denies chest pain, dyspnea on exertion or palpitations Review of Systems Cardiovascular: Positive for leg swelling. Negative for chest pain, dyspnea on exertion, irregular heartbeat, near-syncope, orthopnea, palpitations, paroxysmal nocturnal dyspnea and syncope. Objective Visit Vitals BP 139/80 (BP Location: Left arm, Patient Position: Sitting, BP Cuff Size: Large adult) Pulse 77 Ht 1.727 m (5' 8 ) Wt (!) 145 kg (320 lb 6.4 oz) SpO2 97% BMI 48.72 kg/m??? Smoking Status Former BSA 2.64 m??? Physical Exam General: Awake, alert, good spirits. NAD Pulm: Breath sounds clear to ascultation bilaterally with no wheeze, crackles or rhonchi Cards: Regular rate and rhythm, S1, S2. No S3 or S4 gallop. Murmur: none Extr: Lower extremity edema: right ankle trace. Skin: warm, dry, well perfused Neuro: A&Ox3, No gross deficits Allergies Allergies Allergen Reactions Thiazides Medications Current Outpatient Medications: allopurinol (Zyloprim) 100 mg tablet, allopurinol 100 mg tablet TAKE 1 TABLET BY MOUTH EVERY DAY, Disp: , Rfl: apixaban (Eliquis) 5 mg tablet, Take 1 tablet (5 mg) by mouth in the morning and at bedtime., Disp: 60 tablet, Rfl: 0 atorvastatin (Lipitor) 10 mg tablet, atorvastatin 10 mg tablet TAKE 1 TABLET BY MOUTH EVERY DAY IN THE EVENING, Disp: , Rfl: calcium 500 mg calcium (1,250 mg) tablet, Take 1 tablet by mouth in the morning., Disp: , Rfl: levothyroxine (Synthroid, Levoxyl) 100 mcg tablet, levothyroxine 100 mcg tablet TAKE 1 TABLET BY MOUTH EVERY DAY, Disp: , Rfl: losartan (Cozaar) 50 mg tablet, losartan 50 mg tablet TAKE 1 TABLET BY MOUTH EVERY DAY, Disp: , Rfl: metFORMIN (Glucophage) 500 mg tablet, metformin 500 mg tablet TAKE 1 TABLET BY MOUTH EVERY DAY, Disp: , Rfl: metoprolol succinate XL (Toprol-XL) 25 mg 24 hr tablet, metoprolol succinate ER 25 mg tablet,extended release 24 hr TAKE 1 TABLET BY MOUTH EVERY DAY, Disp: , Rfl: multivitamin tablet, Take 1 tablet by mouth in the morning., Disp: , Rfl: rivaroxaban (Xarelto) 20 mg tablet, Take 1 tablet by mouth in the morning., Disp: , Rfl: Recent Labs 09/16/2022 WBC 9, hemoglobin 13.6, hematocrit 41.4, platelets 285 Sodium 138, potassium 4, chloride 106, CO2 26.4, BUN 21, serum creatinine 0.8, estimated GFR greater than 60%, AST 17, ALT 30, ALP 53 TSH: t3.836 (0.7-1.46) Hemoglobin A1c: 6% 09/12/2021 Total cholesterol 153, HDL 48, triglycerides 84, LDL 88.2 Imaging and other tests Pulmonary vein isolation comprehensive EP study: 07/26/2020 Persistent atrial fibrillation status post PVI Atrial flutter status post CTI ablation EP study revealing no retrograde accessory pathway High normal LA filling pressures which increased with tachycardia suggestive of minimal LE compliance Coronary angiography: 03/30/2020 Left main coronary artery: Patent. The left main trifurcates into LAD, ramus, left circumflex coronary artery Left anterior descending coronary artery: Patent Ramus coronary artery: Patent. The ramus is a large vessel and bifurcates into superior and inferior subbranch Left circumflex coronary artery: Patent Right coronary artery: Patent. The RCA is dominant. The PDA and HOLDEN are patent. Impression: Normal coronary arteries Echocardiogram: 07/26/2020 Left ventricle: Global left ventricular systolic function is normal. The EF is 60% visually Left atrium: Agitated saline study negative for right --> left intra-atrial shunt by color Doppler reveals a small PFO with flow --> right Left Atrium appen (more content not included)... [facility] 04-23-2020 Note MR#: [id number] I [facility] Pt. Name: Hortensia Bates Admitted: 04/15/2020 Discharged: 04/23/2020 Date of : 1955 Physician: Misael Negro MD DISCHARGE SUMMARY PRINCIPAL DIAGNOSES: 1. Paroxysmal atrial fibrillation converted to sinus rhythm. 2. Large rectal polyp, status post resection. 3. Gastrointestinal bleed secondary to large rectal polyp status post resection. SECONDARY DIAGNOSES: Hypertension. Obstructive sleep apnea. Hypothyroidism. IMAGINGS AND PROCEDURE: The patient had initially colonoscopy on 04/18/2020, which showed large 3.5 cm rectal mass/polyp about 2 cm proximal to the dentate line. Biopsies were obtained to rule out malignancy. A 7-mm polyp in the rectosigmoid area proximal to mass, dissection not attempted due to the patient being on anticoagulation and [id number] sigmoid diverticulosis. Subsequently, pathology report came back and was consistent with tubulovillous adenoma with high-grade dysplasia. No malignancy identified and the patient underwent subsequent endoscopy on April 23, 2020, for which large 3.5 cm rectal polyp about 2 to 3 cm proximal to the dentate line removed successfully by endoscopic mucosal resection in the piecemeal fashion. APC was done for the edges and the polypectomy defect was closed by 5 Endoclips. Two polyps were removed from the sigmoid by cold snare measured 3 mm and 5 mm. Ekvizcnf-sd-seixud sigmoid diverticulosis. Again, the patient was admitted initially to the hospital for her atrial fibrillation on April 15, 2020, and she was converted chemically with medications to sinus rhythm. During her hospital stay, there was concern to do ablation due to her being symptomatic, but the patient started having some lower GI bleed, for which her ablation discussion was postponed till outpatient. The patient was evaluated by GI team and endoscopy's findings mentioned above and the patient had her polyps removed today. The patient is doing good and she is being discharged today and to resume her Xarelto for her atrial fibrillation on April 30 after 5 to 6 days' from today. PHYSICAL EXAMINATION: HEENT: Eyes, extraocular muscles intact. NECK: Supple. No JVD. No lymphadenopathy. LUNGS: Clear to auscultation. HEART: S1, S2. ABDOMEN: Soft. Positive bowel sounds. EXTREMITIES: Positive pulses. FOLLOWUP: The patient to follow up with GI as scheduled as well for repeat possible colonoscopy maybe in 3 to 6 months. MEDICATIONS ON DISCHARGE: Allopurinol 100 mg in the morning, calcium with vitamin D daily, flecainide 100 mg twice a day, Synthroid 112 mcg daily, losartan 50 mg in the morning, Toprol-XL 12.5 daily, multivitamin daily, and Xarelto 20 mg daily to start on April 30, 2020. Total time of discharge 60 minutes. Electronically Signed by: Misael Negro MD 04/24/2020 03:49 P Misael Negro MD Date Dict: 04/23/2020/02:32 P/Misael Negro MD Date Trans: 04/23/2020 02:52 P/mmo [id number] [facility] 04-01-2020 Note MR#: [id number] I [facility] Pt. Name: Hortensia Bates Admitted: 03/29/2020 Discharged: 04/01/2020 Date of : 1955 Physician: Kelsey Gonzalez MD DISCHARGE SUMMARY DIAGNOSIS AT ADMISSION: Recurrent ventricular tachycardias. DIAGNOSES AT DISCHARGE: 1. Recurrent symptomatic ventricular tachycardia, resolved. 2. Paroxysmal atrial fibrillation. 3. Diabetes mellitus type 2. 4. Hypothyroidism. 5. Obstructive sleep apnea with nocturnal hypoxemia. HOSPITAL COURSE: This is a 64-year-old female, who came to the hospital because of recurrent episodes of dizziness and lightheadedness along with event monitor regarding episode of ventricular tachycardia. The patient underwent the left heart catheterization, which showed normal coronary circulation, so Cardiology changed the sotalol to flecainide 100 mg b.i.d. During hospitalization over last 3 days, the patient did not have any episode of ventricular tachycardia or any dizziness or lightheadedness. The patient was evaluated with nocturnal desaturation studies due to body habitus and she does qualify oxygenation for nocturnal hypoxemia associated with likely obstructive sleep apnea. The patient is scheduled to have polysomnography in next couple of weeks. The patient's electrolytes have been stable. She has been alert, awake, oriented without dizziness, lightheadedness, nausea, or vomiting. No chest pain or palpitations either. Cardiology has cleared the patient to be discharged with outpatient followup. PHYSICAL EXAMINATION AT THE TIME OF DISCHARGE: VITAL SIGNS: The patient's blood pressure 112/74 mmHg, heart rate 79 per minute, temperature 98 degrees Fahrenheit, respiratory rate 17 per minute. EYES: No pallor or jaundice. ENT: No nasal discharge. RESPIRATORY: Bilateral air entry. CARDIOVASCULAR: S1, S2. ABDOMEN: Soft, nontender. MEDICATIONS LIST: Reviewed and reconciled. DISCHARGE INSTRUCTIONS: The patient will be discharged to home with heart healthy diet and follow with Cardiology as scheduled. Continue flecainide 100 mg b.i.d. and Coumadin which she already has been on. The patient's INR is therapeutic today 1.99. The patient will be going home with 2 L nasal cannula at night for nocturnal hypoxemia associated with obstructive sleep apnea. Physical activity as tolerated. CONDITION ON DISCHARGE: Stable. TIME SPENT ON DISCHARGE PROCESS: 35 minutes. CONSULTATION: Cardiology. PROCEDURE: Left heart catheterization showing normal coronaries. Electronically Signed by: Kelsey Gonzalez MD 04/02/2020 08:18 A Kelsey Gonzalez MD Date Dict: 04/01/2020/12:04 P/Kelsey Gonzalez MD Date Trans: 04/01/2020 12:25 P/mmo [id number] [facility] Evaluation note No assessment inform ation available [facility] Work Phone: Evaluation note Diagnosis History of colon polyps- Primary Personal history of colonic polyps [facility] Chronic atrial fibrillation (HCC)- Primary Atrial fibrillation History of colon polyps Personal history of colonic polyps Primary hypertension Unspecified essential hypertension Class 3 obesity (HCC) documented in this encounter [facility] for referral (narrative)* Outpatient Procedure (Routine) - Pending Review Specialty Diagnoses / Procedures Referred By Masoud simms Referred To Contact [facility] Diagnoses History of colon polyps Procedures COLONOSCOPY SCREENING COLONOSCOPY FLX DX W/[place] [address] [place] [address] [facility] [employer] [address] [place] [address] Referral ID Status Reason Start Date Expiration Date Visits Requested Visits Authorized [id number] Pending Review Auto-Generat ed Referral 3 04/29/2024 1 1 [facility] for referral (narrative)* Outpatient Procedure (Routine) - Closed Specialty Diagnoses / Procedures Referred By Masoud simms Referred To Contact [facility] Diagnoses History of colon polyps Procedures COLONOSCOPY SCREENING COLONOSCOPY FLX DX W/[place] [address] [place] [address] [facility] [employer] [address] [place] [address] Referral ID Status Reason Start Date Expiration Date V isits Requested Visits Authorized [id number] Closed Auto-Generate d Referral 06/05/2023 05/17/2024 1 1 [facility] for visit Narrative* Outpatient Procedure (Routine) - Closed Specialty Diagnoses / Procedures Referred By Contac t Referred To Contact [facility] Diagnoses History of colon polyps Procedures COLONOSCOPY SCREENING COLONOSCOPY FLX DX W/COLLJ [place] [address] [place] [address] [facility] [employer] [address] [place] [address] Referral ID Status Reason Start Date Expiration Date V isits Requested Visits Authorized [id number] Closed Auto-Generate d Referral 06/05/2023 05/17/2024 1 1 [facility] Summary Purpose Family History No Family History Records FoundNo Family History Records FoundNo Family History Records FoundNo Family History Records FoundNo Family History Records FoundNo Family History Records FoundNo Family History Records FoundNo Family History Records Found Advance Directives No Advanced Directives Records Found Advance Directive Response Recorded Date/ Time Advance Directives No March 9:54am Chief Complaint and Reason for Visit Chief Complaint r91.8 Additional Source Comments INFORMATION SOURCE (unrecogn ized section and content) DATE CREATED AUTHOR 11/07/2020 [facility] DATE CREATED AUTHOR AUTHOR'S ORGANIZ ATION 09/19/2022 [facility] DATE CREATED AUTHOR AUTHOR'S ORGANIZ ATION 03/15/2023 [facility] DATE CREATED AUTHOR AUTHOR'S ORGANIZ ATION 04/11/2023 [facility] DATE CREATED AUTHOR AUTHOR'S ORGANIZ ATION 05/04/[address] [facility] DATE CREATED AUTHOR AUTHOR'S ORGANIZ ATION 06/05/2023 [facility] DATE CREATED AUTHOR AUTHOR'S ORGANIZ ATION 06/13/2023 [facility] DATE CREATED AUTHOR AUTHOR'S ORGANIZ ATION 06/22/2023 [facility] Care Teams (unrecognized sec tion and content) Team Status: Active Member Role Status Dates Kaila Goldstein Primary Care Provider Active Team Status: Inactive Member Role Status Dates Kaila Goldstein Primary Care Provider, Attending Provi [email or web address] Active 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 Specialty Start Date End Date Kaila GoldsteinNYDIA [address] [place] [address] PCP - General Family Medicine 03/24/23 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 Specialty Start Date End Date Kaila Goldstein NYDIA Robert [address] [place] [address] PCP - General Family Medicine 03/24/23 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 Specialty Start Date End Date Kaila Goldstein NYDIA [address] [place] [address] PCP - General Family Medicine 03/24/23 Goals (unrecognized section and content) Goals may be documented in a n alternate section Source Comments (unrecognize d section and content) In the event this informatio n is protected by the Federal Confidentiality of Alcohol and Drug Abuse Patient Records regulations: The Federal rules restrict any use of the information to criminally investigate or prosecute any alcohol or drug abuse patient.[facility] the event this information is protected by the Federal Confidentiality of Alcohol and Drug Abuse Patient Records regulations: The Federal rules restrict any use of the information to criminally investigate or prosecute any alcohol or drug abuse patient.[facility] the event this information is protected by the Federal Confidentiality of Alcohol and Drug Abuse Patient Records regulations: The Federal rules restrict any use of the information to criminally investigate or prosecute any alcohol or drug abuse patient.[facility] Reason for Visit (unrecogniz ed section and content) Reason Comments Appointment Reason Comments New Patient Colonoscopy with his tory of polpys Inactive Administered Medications - up to 3 most recent administrations Administered Medications (un recognized section and content) Medication Order MAR Action Action Date Dose Rate Site NaCl 0.9% iv infusion 30 mL/hr, INTRAVENOUS, CONTINUOUS, Starting on Danica 06/18/23 at 0800, Until Danica 06/18/23 at 0920, Preprocedure New Bag/Syringe/Bottle 06/18/2023 8:05 AM EST 30 mL/hr 30 mL/hr IV FOR RECORDS PERTAINING TO PATIENTS WHO ARE OR HAVE BEEN ENROLLED IN A CHEMICAL DEPENDENCY/SUBSTANCEABUSE PROGRAM, SOME INFORMATION MAY BE OMITTED. This clinical summary was aggregated from multiple sources. Caution should be exercised in using it in the provision of clinical care. This summary normalizes information from multiple sources, and as a consequence, information in this document may materially change the coding, format and clinical context of patient data. In addition, data may be omitted in some cases. CLINICAL DECISIONS SHOULD BE BASED ON THE PRIMARY CLINICAL RECORDS. [facility]. provides no warranty or guarantee of the accuracy or completeness of information in this document.
--- NOTE | 2023-06-23 10:59 | CA_ITS ---
Patient Name: HORTENSIA BATES MR#: [id number] : 1955 Exam Date: 06/23/2023 Ordering Doctor: UMAIR ENRIQUE ECHOCARDIOGRAM REPORT PROCEDURE: CA ECHO DOPPLER COMPLETE INDICATIONS: Atrial fibrillation, hypertension, edema, diabetes COMPARISON: None. DESCRIPTION: COMPLETE ECHOCARDIOGRAM Real-time transthoracic echocardiography with 2D, M-mode, spectral and color flow Doppler performed. QUALITY: Technical quality was good. 68 , 313#, BSA 2.47 m2 LEFT VENTRICLE: Normal chamber size. Normal left ventricular wall thickness. Normal systolic function. LV EF: Normal left ventricular ejection fraction, (>55%). DIASTOLIC: Normal diastolic function. ATRIAL SEPTUM: Visually appears intact. LEFT ATRIUM: Moderate dilatation. RIGHT ATRIUM: Normal chamber size. RIGHT VENTRICLE: Normal chamber size. Normal right ventricular systolic function. TRICUSPID VALVE: Normal mobility and thickness. No stenosis with trivial regurgitation. Unable to assess right sided pressures due to lack of measurable tricuspid regurgitation. MITRAL VALVE: Normal mobility and thickness. Mild mitral annular calcification. Trivial mitral regurgitation. AORTIC VALVE: Normal trileaflet appearance. No visible sclerosis. Normal leaflet mobility. No evidence of aortic valve stenosis. No aortic regurgitation. AORTIC ROOT: Normal diameter and appearance. PULMONIC VALVE: Not well visualized. No regurgitation. PERICARDIUM: No evidence of pericardial effusion. IVC: Collapses with inspirations. IVC is normal in size. PLEURA: CONCLUSION: 1. Normal left ventricular size and systolic function. LVEF is 60-65%. 2. Normal right ventricular size and systolic function. 3. No significant valvular dysfunction. 4. Moderate left atrial dilatation. 5. Unable to assess right-sided pressures due to lack of measurable tricuspid regurgitation. 6. The patient appears to be in sinus rhythm during the exam. Adult Echocardiography Procedure Report Left Ventricle LVEDD (3.7 - 5.6 cm): 4.29 cm LVESD (2.2 - 4.0 cm): 3.17 cm LVIVS thickness (0.6 - 1.2 cm): 1.04 cm LVPW thickness (0.5 - 1.0 cm): 0.91 cm e': 0.12 m/s E - e': 4.71 LVOT Max Gradient: 7.38 mm[Hg] LVOT Area (cm2): 1.36 m/s Peak Velocity (LVOT): 1.36 m/s Mean Velocity (LVOT): 0.93 m/s LVOT Diameter 2.27 cm Left Atrium LA Volume Index (2D A2C): 44.83 ml/m2 Left Atrium Systolic Dimension: 3.98 cm Mitral Valve MV E to A Ratio: 0.72 Mitral Valve A-Wave Peak Velocity: 0.77 m/s Mitral Valve E-Wave Peak Velocity: 0.56 m/s Right Ventricle Aorta AO Root Diam: 3.55 cm Ascending Ao Diam: 3.54 cm Aortic Valve AoV Area (Peak Gordon): 3.13 cm2, 3.13 cm2 AoV Area (VTI): 3.50 cm2, 3.50 cm2 Peak Velocity(Antegrade Flow): 1.75 m/s Peak Gradient(Antegrade Flow): 12.29 mm[Hg] Mean Velocity(Antegrade Flow): 1.13 m/s Mean Gradient(Antegrade Flow): 5.84 mm[Hg] Velocity Time Integral: 35.19 cm Tricuspid Valve Pulmonic Valve Mean Gradient: 2.49 mm[Hg] Mean Velocity: 0.75 m/s Peak Velocity: 1.05 m/s, 1.13 m/s Peak Gradient: 5.08 mm[Hg], 4.38 mm[Hg] Right Atrium Right Atrium Systolic Pressure: 52.17 ml, 52.17 ml Dictated by: Isaias Abreu M.D. on 06/23/2023 at 16:18 Approved by: Isaias Abreu M.D. on 06/23/2023 at 16:22
[2023-06-23 12:37] LABS: Anion Gap 12.4; BUN Creatinine Ratio 18.7; Calcium 9.3 mg/dL (8.5-10.1); Carbon Dioxide 27.6 mmol/L (21.0-32.0); Chloride 104 mmol/L (98-107); Estimated GFR (African America >60 (>=60); Estimated GFR (Non-African Ame >60 (>=60); Glucose 99 mg/dL (74-106); Sodium 140 mmol/L (136-145)
== END 2023-06-23 10:00 | disposition home or self-care (01) ==
LOC: CARD 09:59
PROVIDERS: PCP Nurse Practitioner; Visit Provider Nurse Practitioner
DX: I48.91 Unspecified atrial fibrillation (principal); I10 Essential (primary) hypertension; R60.0 Localized edema
CPT/HCPCS: 36415; 80048; 93306

== ENCOUNTER 2023-06-30 09:57 | Outpatient (OUT) | payer OTHER, SELFPAY ==
--- NOTE | 2023-06-30 10:00 | CT_ITS ---
The [address] [address] Patient Name: HORTENSIA BATES MRN: [id number] date: 1955 Sex: F Assigned Patient Location: CT Current Patient Location: CT Accession/Order Number: [id number] Exam Date: 06/30/2023 10:03 Report Date: 06/30/2023 11:53 At the request of: SACHA BRAXTON Procedure: CT chest wo con EXAM: CT chest wo con HISTORY: Multiple Lung Nodule R91.8 COMPARISON: CT chest 03/18/2023. TECHNIQUE: CT imaging obtained through the chest without intravenous contrast. Coronal and axial MIP reformatted images obtained. FINDINGS: Heart size is normal. No pericardial effusion. Normal thoracic vasculature. No thoracic lymphadenopathy. Central tracheobronchial tree is patent. No pleural effusion or pneumothorax. Left lower lobe nodule, image 43, measures 6 x 5 mm, similar or slightly decreased from prior. Right lower lobe, image 43, measures 2 mm, stable. The right middle lobe nodule has a triangular morphology, and measures approximately 7 x 5 mm, with an average diameter of approximately 6 mm and tracks along the minor fissure. This is not significantly changed. Differential includes a pulmonary lymph node. Additional 4 mm nodule along the right minor fissure on image 51 is also unchanged. Differential includes a pulmonary lymph node. Bones and soft tissues: No suspicious bone findings. Partially imaged upper abdomen: Limited. CT/CT chest wo con IMPRESSION: Essentially stable pulmonary nodules, with the left lower lobe nodule similar or possibly slightly decreased. Attention on follow-up chest CT in 3-6 months. Electronically authenticated by: GABY WEATHERS Date: 06/30/2023 11:53
--- OUTSIDE RECORDS SUMMARY | 2023-06-30 10:18 | XMS_ITS | CCD ---
Author Name Unknown Address [address] [place] [address] Organization [facility] Care Team Providers Care Supervisor Word Processing Name Role Phone AICHHOLZ, KAILA Referring Unavailable AICHHOLZ, KAILA Primary Care Unavailable SD Procedure Practitioner Unavailab le ALASTAL, YASEEN Admitting Unavailable ALASTAL, YASEEN Attending Unavailable ALASTAL, YASEEN Surgeon Unavailable AICHHOLZ, KAILA Primary Care Unavailable AICHHOLZ, KAILA Referring Unavailable SULEIMAN GRULLON Admitting Unavailable SULEIMAN GRULLON Attending Unavailable SHANTHI, SARMED Admitting Unavailable SHANTHI, SARMED Attending Unavailable CHAY ARANGO Surgeon Unavailable AICHHOLZ, KAILA Primary Care Unavailable SD Procedure Practitioner Unavailab JUAN Souza Referring Unavailable SHANTHI, SARMED Surgeon Unavailable SD Procedure Practitioner Unavailab LULU Irizarry Referring Unavailable SHANTHI, SARMED Admitting Unavailable AICHHOLZ, KAILA Primary Care Unavailable MISAEL NEGRO Attending Unavailable SD Procedure Practitioner Unavailab le LIZZETTESTAL, YASEEN Surgeon Unavailable AICHHOLZ, MECHANICAL ENGINEERING TEACHER KAILA Attending Unavailable AICHHOLZ, MECHANICAL ENGINEERING TEACHER KAILA Consulting Unavailable AICHHOLZ, MECHANICAL ENGINEERING TEACHER KAILA Primary Care Unavailable AICHHOLZ, MECHANICAL ENGINEERING TEACHER KAILA Admitting Unavailable AICHHOLZ, MECHANICAL ENGINEERING TEACHER KAILA Attending Unavailable AICHHOLZ, MECHANICAL ENGINEERING TEACHER KAILA Consulting Unavailable AICHHOLZ, MECHANICAL ENGINEERING TEACHER KAILA Primary Care Unavailable AICHHOLZ, MECHANICAL ENGINEERING TEACHER KAILA Admitting Unavailable AICHHOLZ, MECHANICAL ENGINEERING TEACHER KAILA Attending Unavailable AICHHOLZ, MECHANICAL ENGINEERING TEACHER KAILA Consulting Unavailable AICHHOLZ, MECHANICAL ENGINEERING TEACHER KAILA Primary Care Unavailable AICHHOLZ, MECHANICAL ENGINEERING TEACHER KAILA Admitting Unavailable Angelita, Kaila J Primary Care Provider Kaila Goldstein Attending Provider Kaila Goldstein Attending Unavailable Kaila Goldstein Primary Care Unavailable Kaila Goldstein Admitting Unavailable Kaila Goldstein CNP Primary Care Provider [phone] KAILA GOLDSTEIN Attending Unavailable EDWINA PRETTY Attending Unavailable UMAIR ENRIQUE Attending Unavailable YANN KUHN Attending Unavailable KAILA GOLDSTEIN Primary Care Unavailable HARLEEN JONES Referring Unavailable CARMELA JONESE Attending Unavailable KAILA GOLDSTEIN Primary Care Unavailable Quinn Antunez MD Primary Care Provider Angelita ANTIQUE JEWELRY REPAIRER, Kaila Unavailable Quinn Antunez MD Unavailable Allergies Allergy Classification Reported Allergen(s) Allergy Type Date of Onset Reaction(s) Facility Unclassified (4 sources) Thiazides; Translations: [THIAZIDES] Drug allergy (disorder) 01-05-20 13 [facility] Repository (4 sources) Spironolactone; Translations: [SPIRONOLACTONE] Drug Allergy 04-29-20 23 [facility] (3 sources) Thiazides Drug Allergy 05-06-20 22 [facility] (1 source) fexofenadine Drug Allergy 05-06-20 22 [facility] (1 source) hydroCHLOROthiazide Drug Allergy 05-04-20 23 [facility] (1 source) Spironolactone Drug Allergy 05-01-20 23 [facility] (1 source) Thiazide-Type Diuretics Drug Allergy 05-04-20 23 [facility] Medications Current Medications Medication Drug Class(es) Dates Sig (Normalized) Sig (Original) allopurinol 100 mg oral tablet (4 sources) Xanthine Oxidase Inhibitor take 1 tablet by mouth in the morning allopurinol (Zyloprim) 100 MG tablet Take 100 mg by mouth in the morning. 0 Active Comment on above: Allopurinol apixaban 5 mg oral tablet (4 sources) Factor Xa Inhibitor take 1 tablet by mouth in the morning apixaban (Eliquis) 5 MG tablet Take 5 mg by mouth in the morning and 5 mg before bedtime. 0 Active Comment on above: Take 5 mg by mouth t wo times a day. atorvastatin 10 mg oral tablet (4 sources) HMG-CoA Reductase Inhibitor take 1 tablet by mouth in the morning atorvastatin (Lipitor) 10 MG tablet Take 10 mg by mouth in the morning. 0 Active Comment on above: Atorvastatin Calcium Blood Glucose Monitoring Suppl (Blood Glucose Monitor System) w/Device kit (1 source) Start: 05-22-2023 Blood Glucose Monitoring Suppl (Blood Glucose Monitor System) w/Device kit Indications: Type 2 diabetes mellitus without complication, without long-term current use of insulin (CMS/HCC) 1 kit 3 (three) times a day as needed (3 times daily prn) 1 kit 0 05/22/2023 Active calcium carbonate 1500 mg oral tablet (1 source) take 1 tablet by mouth in the morning calcium carbonate (Calcium 600) 1500 (600 Ca) MG tablet Take 1,500 mg by mouth in the morning and 1,500 mg in the evening. Take with meals. 0 Active isopropyl alcohol 0.7 ml/ml medicated pad (1 source) Alcohol Swabs pa ds levothyroxine sodium 0.1 mg oral tablet (4 sources) l-Thyroxine take 1 tablet by mouth before mealtime levothyroxine (Synthroid, Levoxyl) 100 MCG tablet Take 100 mcg by mouth in the morning. Take before meals. 0 Active Comment on above: Levothyroxine Sodium losartan potassium 50 mg oral tablet (4 sources) Angiotensin 2 Receptor Gabriella take 1 tablet by mouth in the morning losartan (Cozaar) 50 MG tablet Take 50 mg by mouth in the morning. 0 Active Comment on above: Losartan Potassium metFORMIN hydrochloride 500 mg oral tablet (4 sources) Biguanide take 1 tablet by mouth at mealtime metFORMIN (Glucophage) 500 MG tablet Indications: Type 2 Diabetes Mellitus Take 500 mg by mouth in the morning. Take with meals. 0 Active metFORMIN ER (FO RTAMET) 500 mg 24 hr tablet metFORMIN HCl 0 Active Comment on above: metFORMIN HCl 24 hr metoprolol succinate 25 mg extended release oral tablet (4 sources) beta-Adrenergic Gabriella take 1 tablet by mouth every twenty-four hours in the morning metoprolol succinate XL (Toprol-XL) 25 MG 24 hr tablet Take 25 mg by mouth in the morning. Do not crush or chew.. 0 Active Comment on above: Metoprolol Succinate Multiple Vitamins-Minerals (CENTRUM SILVER 50+MEN PO) (1 source) Multiple Vitamins-Minerals (CENTRUM SILVER 50+MEN PO) Take by mouth 0 Active Completed/Discontinued Medications Medication Drug Class(es) Dates Sig (Normalized) Sig (Original) Calcium Carbonate / vitamin D3 (3 sources) calcium carbonate/vitamin D3 (CALCIUM 500 + D ORAL) Take by mouth. 0 Active Comment on above: Take by mouth. multivit-minerals/fo lic acid (CENTRUM ADULTS ORAL) (3 sources) multivit-mineral s/ folic acid (CENTRUM ADULTS ORAL) Centrum 0 Active Comment on above: Centrum polyethylene glycol 3350 214488 mg / potassium chloride 2970 mg / sodium bicarbonate 6740 mg / sodium chloride 5860 mg / sodium sulfate 30219 mg powder for oral solution (1 source) Osmotic Laxative Start: 04-29-2023 End: 04-29-2023 peg 3350-Electrolytes (GOLYTELY) 236-22.74-6.74 -5.86 gram suspension Take 4,000 mL by mouth one time only for 1 dose. 1 Each 0 04/29/2023 04/29/2023 Comment on above: Take 4,000 mL by madhu th one time only for 1 dose. Problems Active Problems Problem Classification Problem Date Documented Da te Episodic/Chronic Anxiety disorders (1 source) Panic attack; Translations: [Panic disorder [episodic paroxysmal anxiety]] Onset: 05-01-2023 05-01-2023 Chronic Cardiac dysrhythmias (5 sources) Chronic atrial fibrillation; Translations: [Chronic atrial fibrillation, unspecified] Onset: 05-01-2023 06-18-2023 Chronic Diabetes mellitus without complication (6 sources) Type 2 diabetes mellitus without complications; Translations: [Type 2 diabetes mellitus] Onset: 03-13-2022 Chronic Disorders of lipid metabolism (4 sources) Mixed hyperlipidemia; Translations: [Hyperlipidemia] Onset: 06-12-2023 Chronic Essential hypertension (8 sources) Essential (primary) hypertension; Translations: [Essential hypertension] Onset: 09-18-2022 Chronic Gout and other crystal arthropathies (2 sources) Gout, unspecified; Translations: [Gout] Onset: 03-16-2022 05-01-2023 Chronic Other and unspecified benign neoplasm (2 sources) History of polyp of colon; Translations: [Personal history of colonic polyps] 04-29-2023 Episodic Other and unspecified benign neoplasm (1 source) Personal history of colonic polyps; Translations: [History of colon polyps] Onset: 06-18-2023 Episodic Other connective tissue disease (1 source) Chronic pain of right foot; Translations: [Pain in right foot] Onset: 05-01-2023 05-01-2023 Episodic Other lower respiratory disease (1 source) Other nonspecific abnormal finding of lung field; Translations: [Other nonspecific abnormal finding of lung field] Onset: 04-03-2023 Episodic Other lower respiratory disease (2 sources) Multiple nodules of lung; Translations: [Other nonspecific abnormal finding of lung field] Onset: 05-01-2023 06-24-2023 Episodic Other non-traumatic joint disorders (1 source) Joint pain; Translations: [Pain in unspecified joint] Onset: 05-01-2023 05-01-2023 Episodic Other nutritional; endocrine; and metabolic disorders (3 sources) Morbid (severe) obesity due to excess calories; Translations: [Morbid (severe) obesity due to excess calories] Onset: 12-03-2022 Chronic Other nutritional; endocrine; and metabolic disorders (3 sources) Obese class III; Translations: [Morbid (severe) obesity due to excess calories] Onset: 06-18-2023 06-18-2023 Chronic Other nutritional; endocrine; and metabolic disorders (1 source) Morbid obesity; Translations: [Morbid (severe) obesity due to excess calories] Onset: 05-04-2023 05-04-2023 Chronic Other screening for suspected conditions (not mental disorders or infectious disease) (1 source) Mammography abnormal; Translations: [Other abnormal and inconclusive findings on diagnostic imaging of breast] Onset: 05-01-2023 05-01-2023 Episodic Residual codes; unclassified (1 source) Obstructive sleep apnea syndrome; Translations: [Obstructive sleep apnea (adult) (pediatric)] Onset: 05-01-2023 05-01-2023 Chronic Residual codes; unclassified (2 sources) Localized edema; Translations: [Localized edema] Onset: 06-12-2023 Episodic Screening and history of mental health and substance abuse codes (1 source) Tobacco use and exposure - finding; Translations: [Personal history of nicotine dependence] Onset: 05-01-2023 05-01-2023 Episodic Thyroid disorders (5 sources) Hypothyroidism, unspecified; Translations: [Hypothyroidism] Onset: 09-15-2022 Chronic Unclassified (2 sources) Other [...] Test Name Value Interpretation Reference Range Facility [facility] 06-23-2023 [facility] Telephone (YE) HORTENSIA BATES ([id number]) 1955 F Date Time Provider Department 06/23/23 HARLEEN JONES During your visit today, we recorded the following information about you: Sara Do RN 06/23/2023 10:21 AM Signed ----- Message from Harleen Jones DO sent at 06/22/2023 1:12 PM EST ----- Please review path from colonoscopy with pt which reveals multiple SSP and TA removed, a couple hyperplastic polyps and focal inflammation in the rectum rather than true polyp-not concerning. Repeat in 3 yrs. Thanks cl Sara Do RN 06/23/2023 10:22 AM Signed Left voice message regarding results and advised to call office with any further questions. Please enter 3 year recall colonoscopy. Thank you Windy Melendrez RN, Ma 06/23/2023 2:35 PM Signed Recall entered Allergies As of Date: 06/23/2023 Noted Allergy Reaction SPIRONOLACTONE 04/29/2023 4 - Hives THIAZIDES 05/06/2022 4 - Hives Date Reviewed: 06/18/2023 Reviewed by: Nayan De Dios RN - Fully Assessed Reason for Visit: Results [95] Prescriptions as of 06/23/2023 - apixaban (ELIQUIS) 5 mg tab(s) Take 5 mg by mouth two times a day. - levothyroxine (SYNTHROID) 100 mcg tablet Levothyroxine Sodium - metFORMIN ER (FORTAMET) 500 mg 24 hr tablet metFORMIN HCl - multivit-minerals/fol ic acid (CENTRUM ADULTS ORAL) Centrum - losartan (COZAAR) 50 mg tablet Losartan Potassium - metoprolol succinate ER (TOPROL XL) 25 mg 24 hr tablet Metoprolol Succinate - allopurinol (ZYLOPRIM) 100 mg tablet Allopurinol - atorvastatin (LIPITOR) 10 mg tablet Atorvastatin Calcium - calcium carbonate/vitamin D3 (CALCIUM 500 + D ORAL) Take by mouth. Problem List As Of Date 06/23/2023 Noted Resolved Chronic atrial fibrillation (HCC) [I48.20] 06/18/2023 HTN (hypertension) [I10] 06/18/2023 Hyperlipidemia [E78.5] 06/18/2023 Class 3 obesity (HCC) [E66.01] 06/18/2023 Encounter Status:Closed by WINDY DICKSON MA on 06/23/23 [facility] ANES POSTPROC EVALon 024 ANES POSTPROC EVAL HNO ID: [id number] Author: YANN KUHN MD Service: Anesthesiology Author Type: Physician Type: Anesthesia Postprocedure Evaluation Filed: 06/18/2023 09:58 Note Text: POST ANESTHESIA EVALUATION NOTE : 1955 Procedure Summary Date: 06/18/23 Room / Location: Procedures Anesthesia Start: 848 Anesthesia Stop: 918 Procedure: COLONOSCOPY SCREENING Diagnosis: History of colon polyps (High risk colon cancer surveillance: Personal history of colonic polyps) Scheduled Providers: Harleen Jones DO; Leona Rendon APRN.CLOTH WORKER; Yann Kuhn MD; Camden, Abby M, RN Responsible Provider: Yann Kuhn MD Anesthesia Type: MAC ASA Status: 3 Anesthesia Type: MAC Last Vitals Vitals Value Taken Time BP 161/101 06/18/23 0943 Temp 36.1 ?C (97 ?F) 06/18/23 09 HR SpO2 77 06/18/23 0943 Resp 16 06/18/23 0943 SpO2 94 % 06/18/23 09 Vitals shown include unfiled device data. Post [...] June 18, 2023 TIME: 9:57 AM CSN: [id number] [facility] ANES PRE-OPon 06-18-2023 ANES PRE-OP HNO ID: [id number] Author: YANN KUHN MD Service: Anesthesiology Author Type: Physician Type: Anesthesia Preprocedure Evaluation Filed: 06/18/2023 08:20 Note Text: ANESTHESIOLOGY DAY OF SURGERY NOTE : 1955 Procedure Information Date/Time: 06/18/23 0900 Scheduled providers: Harleen Jones DO; Leona Rendon APRN.CLOTH WORKER; Yann Kuhn MD; Abby Peoples RN Procedure: COLONOSCOPY SCREENING Location: Procedures Estimated body mass [...] and consent discussed: yes. Patient / Responsible Green Party agrees to proceed: yes Patient / Surrogate [...] June 18, 2023 TIME: 8:19 AM CSN: [id number] [facility] COLONOSCOPY SCREENINGon [facility] Colonoscopyon 06-18-2023 [facility] Gastrointestinal Endoscopy Patient Name: Hortensia Bates Procedure Date: 06/18/2023 8:48 AM Date of : 1955 Admit Type: Outpatient Age: 67 Room: [place] [address] Gender: Female Note Status: Finalized Attending MD: Harleen Jones DO, [id number] Procedure: Colonoscopy Indications: High risk colon cancer [...] referring physician. Procedure Code(s): --- Professional --- 41642, Colonoscopy, flexible; with biopsy, single or multiple [...] or abscess without bleeding CPT copyright 2020 [employer]. All rights reserved. The codes documented in this report are preliminary and upon processing assistant review may be revised to meet current compliance requirements. Attending Participation: I personally performed the entire procedure. Scope In: 8:53:53 AM Scope Out: 9:15:29 AM DO Harleen Hurd DO 06/18/2023 9:19:27 AM This report has been signed electronically by Harleen Jones DO Number of Addenda: 0 Note Initiated On: 06/18/2023 8:48 AM Estimated Blood Loss: Estimated blood loss was minimal. [facility] GLUCOSE, BLOOD (POC)on 06-18 Glucose [Mass/Vol] 107 mg/dL Abnormal 74 - 99 mg/dL [facility] HISTORY PHYSICALon HISTORY PHYSICAL HNO ID: [id number] Author: HARLEEN JONES DO Service: Gastroenterology Author [...] MAC Additional Comments: None Harleen Jones DO [facility] SURGICAL PATHOLOGYon 024 CASE REPORT [facility] Comment on above: Order Comment: Speci men Type: TISSUE SPECIMEN Ordering Facility: [facility] Address: [address] [place] [address] Result Comment: [facility] Pathology Report Case: [id number] Authorizing Provider: Harleen Jones DO Collected: 06/18/2023 08:59 AM Ordering Location: Procedures Received: 06/18/2023 09:31 AM Pathologist: Thi Delvalle MD, PhD Specimens: A) - CECUM POLYP B) - ASCENDING COLON POLYP C) - TRANSVERSE COLON POLYP D) - SIGMOID COLON POLYP E) - RECTAL BIOPSY Performed By: #### S #### [facility] CLIA [id number] [address] [place] [place] [address] [place] FINAL DIAGNOSIS Normal [facility] Comment on above: Order Comment: Speci men Type: TISSUE SPECIMEN Ordering Facility: [facility] Address: [address] [place] [address] Result Comment: A. C olon, cecum, polyp, [...] level examined. Performed By: #### S #### [facility] CLIA [id number] [address] [place] [address] [place] FINAL PERFORMING LAB [facility] Comment on above: Order Comment: Speci men Type: TISSUE SPECIMEN Ordering Facility: [facility] Address: [address] [place] [address] Result Comment: Diag nostic interpretation performed at [facility], [address] [place] [address] CLIA# [id number] Warehouse Man: José Miguel White M.D. Performed By: #### S #### [facility] CLIA [id number] [address] [place] [address] [place] GROSS DESCRIPTION A. CECUM POLYP Normal [facility] Comment on above: Order Comment: Speci men Type: TISSUE SPECIMEN Ordering Facility: [facility] Address: [address] [place] [address] Result Comment: Rece ived in formalin is [...] 2023 3:40 PM Gross examination performed at [facility], [address] [place] [address] Performed By: #### S #### [facility] CLIA [id number] [address] [place] [address] [place] Office Visiton 06-12-2023 Follow-up visit [id number] Hortensia Bates 1955 F Date Provider Department Center 06/12/2023 UMAIR SAAVEDRA Family History Problem Relation Age of Onset No Known Problems Mother No Known Problems Father Family Status - Relation Status Age at Mother Father Level of Service:59870 [place] OFFICE/OUTPATIENT ESTABLISHED MOD MDM 30 MIN Normal [facility] CNPJaney 06-04-2023 CNPN Telephone (GASTAV) HORTENSIA BATES ([id number]) 1955 F Date Time Provider Department 06/04/23 HARLEEN JONES During your visit today, we recorded the following information about you: Naila Fleming OCCA 06/04/2023 11:19 AM Signed Contacted and spoke with patient regarding prep instructions for upcoming procedure. Answered all patient's questions. Patient demonstrated understanding and was instructed to call [phone] and ask for nurse triage line for [...] 20 mins and then resume. Please call [phone] and ask for Nurse Triage with any [...] and then resume. THANK YOU! Please call [phone] and ask for nurse triage line if you have any questions [facility] Jared Mcneil - 2nd floor (Surgery Center) [address] [facility] [place] [address] Allergies As of Date: 06/04/2023 Noted Allergy Reaction SPIRONOLACTONE 04/29/2023 4 - Hives THIAZIDES 05/06/2022 4 - Hives Date Reviewed: Never Reviewed Reason for Visit: Pre-Op Teaching [134] Prescriptions as of 06/04/2023 - apixaban (ELIQUIS) 5 mg tab(s) Take 5 mg by mouth two times a day. - levothyroxine (SYNTHROID) 100 mcg tablet Levothyroxine Sodium - metFORMIN ER (more content not included)... Normal [facility] CNOVon 04-29-2023 CNOV Office Visit (GASTAV ) HORTENSIA BATES ([id number]) 1955 F Date Time Provider Department 04/29/23 [...] If you do not have a responsible airport driver (family member or friend) with you to take you home, your exam cannot be done with sedation and will be cancelled. Please bring a list of all of your current medications, including any Mmis-hng-Extnqgw medications with you. Medications If you take [...] Chief Compliant: Consultation requested by Dr. Kaila Goldstein APRN.[facility] for an opinion regarding hx of colon polyps. My final recommendations will be communicated back to the requesting physician by way of shared Medical record or letter to requesting physician via US mail. HPI: Hortensia Bates is a 67 year old female with PMH significant for hypo (more content not included)... Normal [facility] Wes 04-21-2023 [facility] Telephone ([facility]) PAULOBLANCAHORTENSIA J ([id number]) 1955 F Date Time Provider Department 04/21/23 CARMEN JACOB [facility] During your visit today, we recorded the [...] Status:Closed by ELLY DUMONT on 04/21/23 Normal [facility] Glucose Glucometer (BldC) [M ass/Vol]Ordered By: Kaila Goldstein on 04-03-2023 Glucose [Mass/Vol] 118 mg/dL [facility] Comment on above: Random Glucose Refer ence Range is dependent on time and content of last meal. Glucose of more than 200 mg/dL in a nonstressed, ambulatory subject supports the diagnosis of Diabetes Mellitus. Glucose Poct Glucometerson 1 06-03-2022 Glucose [Mass/Vol] 118 mg/dL Normal [facility] Comment on above: Result Comment: [place] om Glucose Reference Range is dependent on time and content of last meal. Glucose of more than 200 mg/dL in a nonstressed, ambulatory subject supports the diagnosis of Diabetes Mellitus. PERFORMED BY: [place] [address] PATHOLOGIST DAIRY MACHINE OPERATOR FARMWORKER DARNELL WESLEY M.D. Performed By: #### G GISEL #### Point of Care testing , PET tumor init tx strat sb-m ton 04-03-2023 PET tumor init tx strat sb-mt [facility] [place] [address] [place] [address] Nuclear Medicine Report Signed Patient: Hortensia Bates MR#: [id number] : 1955 Acct:[id number] Age/Sex: 67 / F ADM Date: 04/03/23 Loc: Room: Type: [facility] Attending Dr: Kaila Goldstein Copies to: Simone [...] Reid Jr., D.O.04/03/2023 1:18 PM Dictation Location: [place] [address] Transcribed By: [facility] 04/03/23 1318 Dictated By: Simone Reid Jr, DO 04/03/23 1202 Signed By: 04/03/23 1318 [facility] Physician Referralon 10-27-2 023 Physician Referral [id number]. [id number] [facility] Office Visiton 12-03-2022 Follow-up visit [id number] Hortensia Bates 1955 F Date Provider Department Center 12/03/2022 [id number] PRETTY [facility] Family History Problem Relation Age of Onset No Known Problems Mother No Known Problems Father Family Status - Relation Status Age at Mother Father Level of Service:39983 [place] OFFICE/OUTPATIENT ESTABLISHED MOD MDM 30-39 MIN Reason for Visit and Comments: Follow-up [308310] - 6 month follow up Normal [facility] CBC AUTO DIFFon 09-15-2022 BASO # 0.1 103/ul Normal 0.0-0.1 [facility] Comment on above: Performed By: #### C BC #### [facility] [address] [place] [address] Dr. Yenny Huertas Basophils/100 WBC (Bld) 0.7 % Normal 0.2-2.0 [facility] Comment on above: Performed By: #### C BC #### [facility] [address] [place] [address] Dr. Yenny Huertas EO # 0.2 103/ul Normal 0.0-0.7 [facility] Comment on above: Performed By: #### C BC #### [facility] [address] [place] [address] Dr. Yenny Huertas Eosinophils/100 WBC (Bld) 2.7 % Normal 0.9-7.0 [facility] Comment on above: Performed By: #### C BC #### [facility] [address] [place] [address] Dr. Yenny Huertas Erythrocyte distribution width (RBC) [Ratio] 14.6 % Normal 11.0-15.0 [facility] Comment on above: Performed By: #### C BC #### [facility] [address] [place] [address] Dr. Yenny Huertas Hematocrit (Bld) [Volume fraction] 41.4 % Normal 36.0-48.0 [facility] Comment on above: Performed By: #### C BC #### [facility] [address] [place] [address] Dr. Yenny Huertas Hemoglobin (Bld) [Mass/Vol] 13.6 g/dL Normal 12.0-16.0 [facility] Comment on above: Performed By: #### C BC #### [facility] [address] [place] [address] Dr. Yenny Huertas IG # 0.03 10e3/ul Normal 0.00-0.03 [facility] Comment on above: Performed By: #### C BC #### [facility] [address] [place] [address] Dr. Yenny Huertas IG % 0.3 % Normal 0.0-0.5 [facility] Comment on above: Performed By: #### C BC #### [facility] [address] [place] [address] Dr. Yenny Huertas LYMPH # 3.3 103/ul Normal 1.2-3.8 [facility] Comment on above: Performed By: #### C BC #### [facility] [address] [place] [address] Dr. Yenny Huertas Lymphocytes/100 WBC (Bld) 36.3 % Normal 20.5-60.0 [facility] Comment on above: Performed By: #### C BC #### [facility] [address] [place] [address] Dr. Yenny Huertas MANUAL DIFF REQ NO Normal [facility] Comment on above: Performed By: #### C BC #### [facility] [address] [place] [address] Dr. Yenny Huertas MCH (RBC) [Entitic mass] 29.1 pg Normal 26.7-34.0 [facility] Comment on above: Performed By: #### C BC #### [facility] [address] [place] [address] Dr. Yenny Huertas MCHC (RBC) [Mass/Vol] 32.9 g/dL Normal 29.9-35.2 [facility] Comment on above: Performed By: #### C BC #### [facility] [address] [place] [address] Dr. Yenny Huertas MCV (RBC) [Entitic vol] 88.7 fL Normal 81.0-99.0 [facility] Comment on above: Performed By: #### C BC #### [facility] [address] [place] [address] Dr. Yenny Huertas MONO # 0.7 103/ul Normal 0.3-0.8 [facility] Comment on above: Performed By: #### C BC #### [facility] [address] [place] [address] Dr. Yenny Huertas Monocytes/100 WBC (Bld) 7.7 % Normal 1.7-12.0 [facility] Comment on above: Performed By: #### C BC #### [facility] [address] [place] [address] Dr. Yenny Huertas NEUT # 4.7 103/ul Normal 1.4-6.5 [facility] Comment on above: Performed By: #### C BC #### [facility] [address] [place] [address] Dr. Yenny Huertas Neutrophils/100 WBC (Bld) 52.3 % Normal 43.0-75.0 [facility] Comment on above: Performed By: #### C BC #### [facility] [address] [place] [address] Dr. Yenny Huertas Platelet mean volume (Bld) [Entitic vol] 9.9 fL Normal 9.5-13.5 [facility] Comment on above: Performed By: #### C BC #### [facility] [address] [place] [address] Dr. Yenny Huertas PLT 285 103/ul Normal 150-450 [facility] Comment on above: Performed By: #### C BC #### [facility] [address] [place] [address] Dr. Yenny Huertas RBC 4.67 106/ul Normal 4.20-5.40 [facility] Comment on above: Performed By: #### C BC #### [facility] [address] [place] [address] Dr. Yenny Huertas WBC 9.0 103/ul Normal 4.0-11.0 [facility] Comment on above: Performed By: #### C BC #### [facility] [address] [place] [address] Dr. Yenny Huertas FREE T4on 09-15-2022 Free T4 [Mass/Vol] 1.04 ng/dL Normal 0.76-1.46 [facility] Comment on above: Performed By: #### F T4 #### [facility] [address] [place] [address] Dr. Yenny Huertas GLYCOHEMOGLOBIN A1Con 2022 ADA RECOMMENDATION SEE BELOW Normal [facility] Comment on above: Result Comment: ADA RECOMMENDED LIMIT 4.0 - 6.0 ADA THERAPEUTIC TARGET < 7.0 ACTION SUGGESTED > 7.0 Performed By: #### A 1C #### [facility] [address] [place] [address] Dr. Yenny Huertas Glucose [Mass/Vol] 126 mg/dL Normal [facility] Comment on above: Performed By: #### A 1C #### [facility] [address] [place] [address] Dr. Yenny Huertas HbA1c (Bld) [Mass fraction] 6.0 % Normal 4.5-6.2 [facility] Comment on above: Performed By: #### A 1C #### [facility] [address] [place] [address] Dr. Yenny Huertas MICROALBUMIN, RAND URon 05-0 mALB <1.3 Normal <=30.0 [facility] Comment on above: Performed By: #### M ALBR #### [facility] [address] [place] [address] Dr. Yenny Huertas PROF 14(COMP METB)on 023 Albumin [Mass/Vol] 3.5 g/dL Normal 3.4-5.0 [facility] Comment on above: Performed By: #### T MADELIN, CMP #### [facility] [address] [place] [address] Dr. Yenny Huertas Albumin/Globulin [Mass ratio] 0.9 {ratio} Normal [facility] Comment on above: Performed By: #### T SH, CMP #### [facility] [address] [place] [address] Dr. Yenny Huertas ALP [Catalytic activity/Vol] 53 U/L Normal 46-116 [facility] Comment on above: Performed By: #### T SH, CMP #### [facility] [address] [place] [address] Dr. Yenny Huertas ALT [Catalytic activity/Vol] 30 U/L Normal 14-59 [facility] Comment on above: Performed By: #### T SH, CMP #### [facility] [address] [address] [address] Yenny Huertas Anion gap [Moles/Vol] 9.6 mmol/L Normal [facility] Comment on above: Performed By: #### T SH, CMP #### [facility] [address] [address] [address] Yenny Huertas AST [Catalytic activity/Vol] 17 U/L Normal 15-37 [facility] Comment on above: Performed By: #### T MADELIN, CMP #### [facility] [address] [address] [address] Yenny Huertas Bilirubin [Mass/Vol] 0.6 mg/dL Normal 0.2-1.0 [facility] Comment on above: Performed By: #### T MADELIN, CMP #### [facility] [address] [address] [address] Yenny Huertas Calcium [Mass/Vol] 9.1 mg/dL Normal 8.5-10.1 [facility] Comment on above: Performed By: #### T MADELIN, CMP #### [facility] [address] [address] [address] Yenny Huertas Chloride [Moles/Vol] 106 mmol/L Normal 98-107 [facility] Comment on above: Performed By: #### T MADELIN, CMP #### [facility] [address] [address] [address] Yenny Huertas CO2 [Moles/Vol] 26.4 mmol/L Normal 21.0-32.0 [facility] Comment on above: Performed By: #### T MADELIN, CMP #### [facility] [address] [address] [address] Yenny Huertas Creatinine [Mass/Vol] 0.84 mg/dL Normal 0.55-1.02 [facility] Comment on above: Performed By: #### T MADELIN, CMP #### [facility] [address] [address] [address] Yenny Huertas EGFR-AF TURKMEN >60 Normal >=60 [facility] Comment on above: Performed By: #### T MADELIN, CMP #### [facility] [address] [address] [address] Yenny Huertas EGFR-NON AF TURKMEN >60 Normal >=60 [facility] Comment on above: Performed By: #### T SH, CMP #### [facility] [address] [address] [address] Yenny Huertas Globulin (S) [Mass/Vol] 3.9 g/dL Normal [facility] Comment on above: Performed By: #### T SH, CMP #### [facility] [address] [address] [address] Yenny Huertas Glucose [Mass/Vol] 119 mg/dL Critically high 74-106 [facility] Comment on above: Performed By: #### T SH, CMP #### [facility] [address] [place] [address] Dr. Yenny Huertas Potassium [Moles/Vol] 4.0 mmol/L Normal 3.5-5.1 [facility] Comment on above: Performed By: #### T SH, CMP #### [facility] [address] [place] [address] Dr. Yenny Huertas Protein [Mass/Vol] 7.4 g/dL Normal 6.4-8.2 [facility] Comment on above: Performed By: #### T SH, CMP #### [facility] [address] [place] [address] Dr. Yenny Huertas Sodium [Moles/Vol] 138 mmol/L Normal 136-145 [facility] Comment on above: Performed By: #### T SH, CMP #### [facility] [address] [place] [address] Dr. Yenny Huertas Urea nitrogen [Mass/Vol] 21.0 mg/dL Critically high 7.0-18.0 [facility] Comment on above: Performed By: #### T SH, CMP #### [facility] [address] [place] [address] Dr. Yenny Huertas Urea nitrogen/Creatinine [Mass ratio] 25.0 mg/mg Normal [facility] Comment on above: Performed By: #### T SH, CMP #### [facility] [address] [address] [address] Yenny Huertas TSHon 09-15-2022 TSH 3.836 uIU/mL Critically high 0.358-3.740 [facility] Comment on above: Performed By: #### T SH, CMP #### [facility] [address] [place] [address] Dr. Yenny Huertas UA RANDOM W/MICROSCOPICon BACTERIA TRACE Abnormal NONE SEEN [facility] Comment on above: Performed By: #### U AMIC #### [facility] [address] [place] [address] Dr. Yenny Huertas Bilirubin Ql (U) Negative Normal NEGATIVE [facility] Comment on above: Performed By: #### U AMIC #### [facility] [address] [place] [address] Dr. Yenny Huertas CAST NONE SEEN Normal NONE SEEN [facility] Comment on above: Performed By: #### U AMIC #### [facility] [address] [place] [address] Dr. Yenny Huertas Clarity (U) CLEAR Normal CLEAR [facility] Comment on above: Performed By: #### U AMIC #### [facility] [address] [place] [address] Dr. Yenny Huertas Color (U) LT. YELLOW Normal YELLOW [facility] Comment on above: Performed By: #### U AMIC #### [facility] [address] [place] [address] Dr. Yenny Huertas Crystals LM Nom (Urine sed) NONE SEEN Normal NONE SEEN [facility] Comment on above: Performed By: #### U AMIC #### [facility] [address] [place] [address] Dr. Yenny Huertas Epithelial cells LM Ql (Urine sed) MODERATE Abnormal NONE SEEN /RARE [facility] Comment on above: Performed By: #### U AMIC #### [facility] [address] [place] [address] Dr. Yenny Huertas Glucose Ql (U) Negative Normal NEGATIVE [facility] Comment on above: Performed By: #### U AMIC #### [facility] [address] [address] [address] Yenny Huertas Hemoglobin Ql (U) Negative Normal NEGATIVE [facility] Comment on above: Performed By: #### U AMIC #### [facility] [address] [address] [address] Yenny Huertas Ketones Ql (U) Negative Normal NEGATIVE [facility] Comment on above: Performed By: #### U AMIC #### [facility] [address] [address] [address] Yenny Huertas LEUKOCYTES TRACE Abnormal NEGATIVE [facility] Comment on above: Performed By: #### U AMIC #### [facility] [address] [place] [address] Dr. Yenny Huertas MUCOUS NONE SEEN Normal NONE SEEN [facility] Comment on above: Performed By: #### U AMIC #### [facility] [address] [place] [address] Dr. Yenny Huertas Nitrite Ql (U) Negative Normal NEGATIVE [facility] Comment on above: Performed By: #### U AMIC #### [facility] [address] [place] [address] Dr. Yenny Huertas pH (U) 5.0 [pH] Normal 5-9 [facility] Comment on above: Performed By: #### U AMIC #### [facility] [address] [place] [address] Dr. Yenny Huertas RBC 0-2 Normal 0-2 [facility] Comment on above: Performed By: #### U AMIC #### [facility] [address] [place] [address] Dr. Yenny Huertas SPEC GRAVITY >=1.030 Abnormal 1.005-<=1.025 [facility] Comment on above: Performed By: #### U AMIC #### [facility] [address] [place] [address] Dr. Yenny Huertas UA PROTEIN Negative Normal NEGATIVE/ TRACE [facility] Comment on above: Performed By: #### U AMIC #### [facility] [address] [place] [address] Dr. Yenny Huertas Urobilinogen Qn (U) 0.2 {Mila'U}/dL Normal 0.2 - 1. 0 [facility] Comment on above: Performed By: #### U AMIC #### [facility] [address] [place] [address] Dr. Yenny Huertas WBC 2-5 Abnormal NONE SEEN [facility] Comment on above: Performed By: #### U AMIC #### [facility] [address] [address] [address] Yenny Huertas Covid-19 PCR (CVDTB)on 04-17 SARS-CoV-2 (COVID-19) RNA JAS+probe Ql (Unsp spec) Detected Critically abnormal NOT DETECTED [facility] Comment on above: Result Comment: This test is not yet approved or cleared by the [place] FDA. When there are no FDA-approved or cleared tests available, and other criteria are met, FDA can make tests available under an emergency access mechanism called an Emergency Use Authorization (EUA). The EUA for this test is supported by the [place] of Health and Human Service's declaration that [...] used). Performed By: #### C VDTBH #### [facility] [address] [place] [address] Dr. Yenny Huertas INFLUENZA A AND B AGon 05-01 INFLUANEGH SEE BELOW Normal [facility] Comment on above: Result Comment: Nega tive for Flu A protein angiten. Infection due to Flu A cannot be ruled out. Flu A angiten in the sample may be below the detection limit of the test. Performed By: #### I NFLUAB #### [facility] [address] [place] [address] Dr. Yenny Huertas INFLUBNEGH SEE BELOW Normal [facility] Comment on above: Result Comment: Nega tive for Flu B protein antigen. Infection due to Flu B cannot be ruled out. Flu B antigen in the sample may be below the detection limit of the test. Performed By: #### I NFLUAB #### [facility] [address] [place] [address] Dr. Yenny Huertas INFLUENZA A AG Negative Normal NEGATIVE SEE COMMENT [facility] Comment on above: Performed By: #### I NFLUAB #### [facility] [address] [place] [address] Dr. Yenny Huertas INFLUENZA B AG Negative Normal NEGATIVE SEE COMMENT [facility] Comment on above: Performed By: #### I NFLUAB #### [facility] [address] [place] [address] Dr. Yenny Huertas INTERNAL CONTROLS Within Normal Limits Normal Wi thin Normal Limits [facility] Comment on above: Performed By: #### I NFLUAB #### [facility] [address] [place] [address] Dr. Yenny Huertas GLYCOHEMOGLOBIN A1Con 2021 ADA RECOMMENDATION SEE BELOW Normal [facility] Comment on above: Result Comment: ADA RECOMMENDED LIMIT 4.0 - 6.0 ADA THERAPEUTIC TARGET < 7.0 ACTION SUGGESTED > 7.0 Performed By: #### M ALBR #### [facility] [address] [place] [address] Dr. Yenny Huertas Glucose [Mass/Vol] 117 mg/dL Normal [facility] Comment on above: Performed By: #### M ALBR #### [facility] [address] [place] [address] Dr. Yenny Huertas HbA1c (Bld) [Mass fraction] 5.7 % Normal 4.5-6.2 [facility] Comment on above: Performed By: #### M ALBR #### [facility] [address] [place] [address] Dr. Yenny Huertas URIC ACID SERUMon 03-13-2022 Urate [Mass/Vol] 4.8 mg/dL Normal 2.6-6.0 [facility] Comment on above: Performed By: #### U DILIA #### [facility] [address] [place] [address] Dr. Yenny Huertas Endoscopy Reporton Endoscopy Report MR#: [id number] [facility] Pt. Name: Hortensia Bates Surgery Date: 11/02/2020 Room #: 0 Date of : 1955 PROCEDURE NOTE ATTENDING: Arley Sanchez M.D. PROCEDURE: Colonoscopy. ASSISTING PHYSICIAN: Kirk Aranda [...] medications including Xarelto. Electronically Signed by: Arley Sanchez M.D. 11/06/2020 01:20 P Arley Sanchez M.D. I was present for the entire procedure from insertion of the scope until it was withdrawn. Date Dict: 11/02/2020/01:08 P/Kirk Aranda MD Date Trans: 11/03/2020 08:22 A/lazarus [id number] Normal [facility] POC GLUCOSE LABon 11-02-2020 Glucose [Mass/Vol] 90 mg/dL Normal 70-100 [facility] Comment on above: Performed By: #### 3 [id number] #### [facility] [address] [place] [address], [facility] BASIC METABOLIC PANELon 07-16 Calcium [Mass/Vol] 7.9 mg/dL Low 8.6-10.3 [facility] Comment on above: Order Comment: No: D o not add to previous draw Performed By: #### [id number] #### [facility] [address] [place] [address], [place] Chloride [Moles/Vol] 107 mmol/L Normal 98-107 [facility] Comment on above: Order Comment: No: D o not add to previous draw Performed By: #### [id number] #### [facility] [address] [place] [address], [place] CO2 [Moles/Vol] 24 mmol/L Normal 21-31 [facility] Comment on above: Order Comment: No: D o not add to previous draw Performed By: #### [id number] #### [facility] [address] [place] [address], [place] Creatinine [Mass/Vol] 0.62 mg/dL Normal 0.60-1.20 [facility] Comment on above: Order Comment: No: D o not add to previous draw Performed By: #### [id number] #### [facility] [address] [place] [address], [place] GFR/1.73 sq M.predicted among blacks MDRD (S/P/Bld) [Vol rate/Area] mL/min/{1.73_m2} Normal >60 [facility] Comment on above: Order Comment: No: D o not add to previous draw Performed By: #### [id number] #### [facility] [address] [place] [address], [place] GFR/1.73 sq M.predicted among non-blacks MDRD (S/P/Bld) [Vol rate/Area] mL/min/{1.73_m2} Normal >60 [facility] Comment on above: Order Comment: No: D o not add to previous draw Performed By: #### [id number] #### [facility] [address] [place] [address], [place] Glucose [Mass/Vol] 106 mg/dL High 70-100 [facility] Comment on above: Order Comment: No: D o not add to previous draw Performed By: #### [id number] #### [facility] [address] [place] [address], [place] Potassium [Moles/Vol] 3.9 mmol/L Normal 3.5-5.1 [facility] Comment on above: Order Comment: No: D o not add to previous draw Performed By: #### 8 [id number] #### [facility] [address] [place] [address], [place] Sodium [Moles/Vol] 137 mmol/L Normal 136-145 [facility] Comment on above: Order Comment: No: D o not add to previous draw Performed By: #### [id number] #### [facility] [address] [place] [address], [place] Urea nitrogen [Mass/Vol] 11 mg/dL Normal 7-25 [facility] Comment on above: Order Comment: No: D o not add to previous draw Performed By: #### [id number] #### [facility] [address] [place] [address], [place] CBC COMPLETE BLOOD COUNTon 0 3- Erythrocyte distribution width (RBC) [Ratio] 14.1 % Normal 11.5-15.0 [facility] Comment on above: Order Comment: No: D o not add to previous draw Performed By: #### [id number] #### [facility] [address] [place] [address], [facility] Hematocrit (Bld) [Volume fraction] 37.8 % Normal 36.0-45.0 [facility] Comment on above: Order Comment: No: D o not add to previous draw Performed By: #### [id number] #### [facility] [address] [place] [address], [facility] Hemoglobin (Bld) [Mass/Vol] 12.2 g/dL Normal 12.0-15.0 [facility] Comment on above: Order Comment: No: D o not add to previous draw Performed By: #### [id number] #### [facility] [address] [place] [address], [place] MCH (RBC) [Entitic mass] 29.6 pg Normal 27.0-33.0 [facility] Comment on above: Order Comment: No: D o not add to previous draw Performed By: #### [id number] #### [facility] [address] [place] [address], [place] MCHC (RBC) [Mass/Vol] 32.3 g/dL Normal 32.0-35.0 [facility] Comment on above: Order Comment: No: D o not add to previous draw Performed By: #### [id number] #### [facility] [address] [place] [address], [place] MCV (RBC) [Entitic vol] 91.7 fL Normal 82.0-98.0 [facility] Comment on above: Order Comment: No: D o not add to previous draw Performed By: #### [id number] #### [facility] [address] [place] [address], [place] Nucleated RBC/100 WBC (Bld) [Ratio] 0 % Normal 0-0 [facility] Comment on above: Order Comment: No: D o not add to previous draw Performed By: #### [id number] #### [facility] [address] [place] [address], [place] PLAT CNT 276 10*3/uL Normal 150-400 [facility] Comment on above: Order Comment: No: D o not add to previous draw Performed By: #### [id number] #### [facility] [address] [place] [address], [place] RBC (Bld) [#/Vol] 4.12 10*6/uL Normal 3.80-5.[address] [facility] Comment on above: Order Comment: No: D o not add to previous draw Performed By: #### [id number] #### [facility] [address] [place] [address], [place] WBC (Bld) [#/Vol] 15.14 10*3/uL High 4.00-10.60 [facility] Comment on above: Order Comment: No: D o not add to previous draw Performed By: #### [id number] #### [facility] [address] [place] [address], [place] MAGNESIUM BLOODon 07-27-2020 Magnesium [Mass/Vol] 1.7 mg/dL Low 1.9-2.7 [facility] Comment on above: Order Comment: No: D o not add to previous draw Performed By: #### [id number] #### [facility] [address] [place] [address], [place] POC GLUCOSE LABon 07-27-2020 Glucose [Mass/Vol] 93 mg/dL Normal 70-100 [facility] Comment on above: Performed By: #### 3 [id number] #### [facility] [address] [place] [address], [place] Glucose [Mass/Vol] 101 mg/dL High 70-100 [facility] Comment on above: Performed By: #### 3 [id number] #### [facility] [address] [facility]. [address] Cardiovascular Lab Reporton 07-26-2020 Cardiovascular Lab Report [facility] Patient Name: Hortensia Bates [facility] MR #: [id number] Physician: Suleiman Grullon MD Department of Service Date: 07/26/2020 Medicine Birthdate: 1955 Division of Room #: 3AB [id number] Cardiology Adult Cardiovascular Services [facility] [address] [facility] [place], [place] [address] Cardiovascular Laboratory Report ATRIAL FIBRILLATION ABLATION PROCEDURE [...] there was no pericardial effusion and no OSCAR clot. LA was noted to be mildly enlarged. Esophagus was mapped using the [employer] 3D mapping software. Double transseptal access technique [...] fol (more content not included)... Normal [facility] POC GLUCOSE LABon 07-26-2020 Glucose [Mass/Vol] 135 mg/dL High 70-100 [facility] Comment on above: Performed By: #### 8 [id number] ####[facility] [facility].[address] Glucose [Mass/Vol] 134 mg/dL High 70-100 [facility] Comment on above: Performed By: #### 8 [id number] ####[facility] [facility] [place] [address], [facility] Glucose [Mass/Vol] 106 mg/dL High 70-100 [facility] Comment on above: Performed By: #### 8 [id number] ####[facility] [facility].[address] Endoscopy Reporton 0 Endoscopy Report MR#: [id number] [facility] Pt. Name: Hortensia Bates Surgery Date: 04/23/2020 Room #: 3AB [id number] Date of : 1955 PROCEDURE NOTE ATTENDING: Arley Sanchez M.D. PROCEDURE: Colonoscopy with endoscopic mucosa resection. [...] snare, measured 3 mm and 5 mm. Tvwyxivt-gz-rcawmw sigmoid diverticulosis. 3. Poor colon preparation. RECOMMENDATIONS: 1. Follow up pathology results of the removed colon polyp. 2. Consider resuming anticoagulation after 5 days of the procedure. 3. Repeat colonoscopy in 6 months. The patient will need to have 2 days colon preparation for examination of the rest of the colon and also examination of the polypectomy site. Electronically Signed by: Arley Sanchez M.D. 04/30/2020 11:52 A Arley Sanchez M.D. Date Dict: 04/23/2020/08:29 A/Arley Sanchez M.D. Date Trans: 04/23/2020 10:38 A/mmo [id number] Normal [facility] POC GLUCOSE LABon 04-23-2020 Glucose [Mass/Vol] 116 mg/dL High 70-100 [facility] Comment on above: Performed By: #### 8 [id number] #### [facility] [address] [place] [address], [place] Glucose [Mass/Vol] 98 mg/dL Normal 70-100 [facility] Comment on above: Performed By: #### 3 5200 #### [facility] [address] [place] [address], [place] Glucose [Mass/Vol] 89 mg/dL Normal 70-100 [facility] Comment on above: Performed By: #### 8 [id number] ####[facility] [place] [address], [place] POC GLUCOSE LABon 04-22-2020 Glucose [Mass/Vol] 93 mg/dL Normal 70-100 [facility] Comment on above: Performed By: #### 3 1792 #### [facility] [address] [place] [address], [place] Glucose [Mass/Vol] 99 mg/dL Normal 70-100 [facility] Comment on above: Performed By: #### 3 5200 #### [facility] [address] [place] [address], [place] Glucose [Mass/Vol] 109 mg/dL High 70-100 [facility] Comment on above: Performed By: #### 3 1792 #### [facility] [address] [place] [address], [place] *SARS-CoV-2 COVID-19on 04-21 Clinical Report Normal [facility] Comment on above: Result Comment: Spec imen: OROPHARYNGEAL Collected: 04/21/2020 11:17 Status: Final Last Updated: 04/22/2020 12:41 COVID-19 (Final) Not Detected The BD MaternovaGX SARS-CoV-2 assay is a real-time (rt) reverse transcriptase (RT) polymerase chain reaction (PCR) test intended for the IQcard system. The SARS-CoV-2 primer and probe sets are designed to detect RNA from SARS-CoV-2 in a nasopharyngeal (ANTIQUE JEWELRY REPAIRER) or oropharyngeal (OP) swab from patients with signs and symptoms of infection who are suspected of COVID-19. Results are for the identification of SARS-CoV-2 RNA. The SARS-CoV-2 RNA is generally detectable in a nasopharyngeal or oropharyngeal swab during the acute phase of infection. The WordStreamGX SARS-CoV-2 assay is intended for use by qualified and trained clinical laboratory personnel specifically instructed and trained in the techniques of real-time PCR and in vitro diagnostic procedures. The WordStreamGX SARS-CoV-2 assay is only for use under the Food and Drug Administration Emergency Use Authorization. Testing is limited to laboratories certified under the Clinical Laboratory Improvement Amendments of 1988 (CLIA), 42 U.S.C. 263a, to perform high complexity tests. Performed By: #### 3 [id number] #### [facility] [address] [place] [address], [place] POC GLUCOSE LABon 04-21-2020 Glucose [Mass/Vol] 105 mg/dL High 70-100 [facility] Comment on above: Performed By: #### 8 [id number] #### [facility] [address] [place] [address], [place] Glucose [Mass/Vol] 97 mg/dL Normal 70-100 [facility] Comment on above: Performed By: #### 8 [id number] ####[facility] [place] [address], [place] Glucose [Mass/Vol] 94 mg/dL Normal 70-100 [facility] Comment on above: Performed By: #### 8 5499 ####[facility] [place] [address], [place] Glucose [Mass/Vol] 98 mg/dL Normal 70-100 [facility] Comment on above: Performed By: #### 8 [id number] ####[facility] PROTHROMBIN TIMEon 0 INR Coag (PPP) [Relative time] 1.04 {INR} Normal 0.91-1.16 [facility] Comment on above: Order Comment: [...] CHEST 1995;108:231S-246S. Performed By: #### 1 0070, [id number] #### [facility] [address] PT Coag (PPP) [Time] 13.6 s Normal 12.3-14.8 [facility] Comment on above: Order Comment: No: D o not add to previous draw Result Comment: ALL RESULTS MUST BE INTERPRETED WITH RESPECT TO BLOOD DRAWING ARTIFACT OR DILUTION ERROR OF ANTICOAGULANT AT THE TIME OF SAMPLING. Performed By: #### 1 0070, [id number] #### [facility] [address] BASIC METABOLIC PANELon 12-0 Calcium [Mass/Vol] 8.8 mg/dL Normal 8.6-10.3 [facility] Comment on above: Order Comment: No: D o not add to previous draw Performed By: #### 1 0070, [id number] #### [facility] [address] [place] [address], [place] Chloride [Moles/Vol] 103 mmol/L Normal 98-107 [facility] Comment on above: Order Comment: No: D o not add to previous draw Performed By: #### 1 0070, 36188 #### [facility] [address] [place] [address], [place] CO2 [Moles/Vol] 26 mmol/L Normal 21-31 [facility] Comment on above: Order Comment: No: D o not add to previous draw Performed By: #### 1 0070, 30037 #### [facility] [address] [place] [address], [place] Creatinine [Mass/Vol] 0.82 mg/dL Normal 0.60-1.20 [facility] Comment on above: Order Comment: No: D o not add to previous draw Performed By: #### 1 0070, 35588 #### [facility] [address] [place] [address], [place] GFR/1.73 sq M.predicted among blacks MDRD (S/P/Bld) [Vol rate/Area] mL/min/{1.73_m2} Normal >60 [facility] Comment on above: Order Comment: No: D o not add to previous draw Performed By: #### 1 0070, 65227 #### [facility] [address] [place] [address], [place] GFR/1.73 sq M.predicted among non-blacks MDRD (S/P/Bld) [Vol rate/Area] mL/min/{1.73_m2} Normal >60 [facility] Comment on above: Order Comment: No: D o not add to previous draw Performed By: #### 1 0070, 76357 #### [facility] [address] [place] [address], [place] Glucose [Mass/Vol] 99 mg/dL Normal 70-100 [facility] Comment on above: Order Comment: No: D o not add to previous draw Performed By: #### 1 0070, 18869 #### [facility] [address] [place] [address], [place] Potassium [Moles/Vol] 3.8 mmol/L Normal 3.5-5.1 [facility] Comment on above: Order Comment: No: D o not add to previous draw Performed By: #### 1 0070, 54103 #### [facility] [address] [place] [address], [place] Sodium [Moles/Vol] 136 mmol/L Normal 136-145 [facility] Comment on above: Order Comment: No: D o not add to previous draw Performed By: #### 1 0070, 96349 #### [facility] [address] [place] [address], [place] Urea nitrogen [Mass/Vol] 15 mg/dL Normal 7-25 [facility] Comment on above: Order Comment: No: D o not add to previous draw Performed By: #### 1 0070, 46116 #### [facility] [address] [place] [address], [place] POC GLUCOSE LABon 04-20-2020 Glucose [Mass/Vol] 109 mg/dL High 70-100 [facility] Comment on above: Performed By: #### 3 5200 #### [facility] [address] [place] [address], [place] Glucose [Mass/Vol] 95 mg/dL Normal 70-100 [facility] Comment on above: Performed By: #### 8 5499 ####[facility] [place] [address], [place] Glucose [Mass/Vol] 92 mg/dL Normal 70-100 [facility] Comment on above: Performed By: #### 3 5200 #### [facility] [address] [place] [address], [place] Glucose [Mass/Vol] 94 mg/dL Normal 70-100 [facility] Comment on above: Performed By: #### 8 5499 ####[facility] [place] [address], [place] HEMATOCRITon 04-19-2020 Hematocrit (Bld) [Volume fraction] 42.6 % Normal 36.0-45.0 [facility] Comment on above: Order Comment: No: D o not add to previous draw Performed By: #### 8 5499 #### [facility] [address] [place] [address], [place] HEMOGLOBINon 04-19-2020 Hemoglobin (Bld) [Mass/Vol] 13.6 g/dL Normal 12.0-15.0 [facility] Comment on above: Order Comment: No: D o not add to previous draw Performed By: #### 8 5499 #### [facility] [address] [place] [address], [place] POC GLUCOSE LABon 04-19-2020 Glucose [Mass/Vol] 114 mg/dL High 70-100 [facility] Comment on above: Performed By: #### 8 5499 ####[facility] [place] [address], [place] Glucose [Mass/Vol] 110 mg/dL High 70-100 [facility] Comment on above: Performed By: #### 3 1792 #### [facility] [address] [place] [address], [place] Glucose [Mass/Vol] 95 mg/dL Normal 70-100 [facility] Comment on above: Performed By: #### 8 5499 ####[facility] Glucose [Mass/Vol] 89 mg/dL Normal 70-100 [facility] Comment on above: Performed By: #### 3 1792 #### [facility] [address] *SARS-CoV-2 COVID-19on 04-18 Clinical Report Normal [facility] Comment on above: Result Comment: Spec imen: OROPHARYNGEAL Collected: 04/17/2020 23:30 Status: Final Last Updated: 04/18/2020 09:00 COVID-19 (Final) Not Detected The WordStreamGX SARS-CoV-2 assay is a real-time (rt) reverse transcriptase (RT) polymerase chain reaction (PCR) test intended for the IQcard system. The SARS-CoV-2 primer and probe sets are designed to detect RNA from SARS-CoV-2 in a nasopharyngeal (ANTIQUE JEWELRY REPAIRER) or oropharyngeal (OP) swab from patients with signs and symptoms of infection who are suspected of COVID-19. Results are for the identification of SARS-CoV-2 RNA. The SARS-CoV-2 RNA is generally detectable in a nasopharyngeal or oropharyngeal swab during the acute phase of infection. The WordStreamGX SARS-CoV-2 assay is intended for use by qualified and trained clinical laboratory personnel specifically instructed and trained in the techniques of real-time PCR and in vitro diagnostic procedures. The BD MaternovaGX SARS-CoV-2 assay is only for use under the Food and Drug Administration Emergency Use Authorization. Testing is limited to laboratories certified under the Clinical Laboratory Improvement Amendments of 1988 (CLIA), 42 U.S.C. 263a, to perform high complexity tests. Performed By: #### 3 1791 #### [facility] [address] CBC COMPLETE BLOOD COUNTon 1 06-19-2019 Erythrocyte distribution width (RBC) [Ratio] 14.6 % Normal 11.5-15.0 [facility] Comment on above: Order Comment: No: D o not add to previous drawMissed pt has to go to the bathroom ask to come back Performed By: #### 8 5499 #### [facility] [address] [facility]. [address] Hematocrit (Bld) [Volume fraction] 43.6 % Normal 36.0-45.0 [facility] Comment on above: Order Comment: No: D o not add to previous drawMissed pt has to go to the bathroom ask to come back Performed By: #### 8 5499 #### [facility] [address] [facility] [facility] Hemoglobin (Bld) [Mass/Vol] 13.8 g/dL Normal 12.0-15.0 [facility] Comment on above: Order Comment: No: D o not add to previous drawMissed pt has to go to the bathroom ask to come back Performed By: #### 8 5499 #### [facility] [address] MCH (RBC) [Entitic mass] 28.9 pg Normal 27.0-33.0 [facility] Comment on above: Order Comment: No: D o not add to previous drawMissed pt has to go to the bathroom ask to come back Performed By: #### 8 5499 #### [facility] [address] [facility] MCHC (RBC) [Mass/Vol] 31.7 g/dL Low 32.0-35.0 [facility] Comment on above: Order Comment: No: D o not add to previous drawMissed pt has to go to the bathroom ask to come back Performed By: #### 8 5499 #### [facility] [address] [place] [address], [facility] MCV (RBC) [Entitic vol] 91.2 fL Normal 82.0-98.0 [facility] Comment on above: Order Comment: No: D o not add to previous drawMissed pt has to go to the bathroom ask to come back Performed By: #### 8 5499 #### [facility] [address] [facility]. [address] Nucleated RBC/100 WBC (Bld) [Ratio] 0 % Normal 0-0 [facility] Comment on above: Order Comment: No: D o not add to previous drawMissed pt has to go to the bathroom ask to come back Performed By: #### 8 5499 #### [facility] [address] [facility]. [address] PLAT CNT 338 10*3/uL Normal 150-400 [facility] Comment on above: Order Comment: No: D o not add to previous drawMissed pt has to go to the bathroom ask to come back Performed By: #### 8 5499 #### [facility] [address] RBC (Bld) [#/Vol] 4.78 10*6/uL Normal 3.80-5.00 The [place] Comment on above: Order Comment: No: D o not add to previous drawMissed pt has to go to the bathroom ask to come back Performed By: #### 8 5499 #### [facility] [address] [facility]. [address] WBC (Bld) [#/Vol] 10.61 10*3/uL High 4.00-10.60 [facility] Comment on above: Order Comment: No: D o not add to previous drawMissed pt has to go to the bathroom ask to come back Performed By: #### 8 [id number] #### [facility] [address] [facility]. [address] Endoscopy Reporton 0 Endoscopy Report MR#: [id number] [facility] Pt. Name: Hortensia Bates Surgery Date: 04/18/2020 Room #: 3AB [id number] Date of : 1955 PROCEDURE NOTE ATTENDING: Arley Sanchez M.D. BRAILLE DUPLICATING MACHINE OPERATOR: Edmond Watkins MD PROCEDURE: Colonoscopy. INDICATION: This [...] to the patient being on anticoagulation. 3. Bpqgvsks-li-dtjhjk sigmoid diverticulosis. 4. Poor bowel prep with semi-solid stool throughout the colon interfering with visualization. RECOMMENDATIONS: 1. Follow up colon mass biopsy results. 2. If mass biopsy results showed adenomatous polyp without malignancy, recommend endoscopic resection via EMR, off anticoagulation if okay with Cardiology. 3. If mass shows malignancy, recommend surgical consultation. Electronically Signed by: Arley Sanchez M.D. 04/20/2020 12:10 P Arley Sanchez M.D. I was present for the entire procedure from insertion of the scope until it was withdrawn. Date Dict: 04/18/2020/06:44 P/Edmond Watkins MD Date Trans: 04/18/2020 07:10 P/lazarus [id number] Normal [facility] POC GLUCOSE LABon 04-18-2020 Glucose [Mass/Vol] 111 mg/dL High 70-100 [facility] Comment on above: Performed By: #### 3 1792 #### [facility] [address] [place] [address], [facility] Glucose [Mass/Vol] 84 mg/dL Normal 70-100 [facility] Comment on above: Performed By: #### 8 5499 ####[facility] [place] [address], [place] Glucose [Mass/Vol] 87 mg/dL Normal 70-100 [facility] Comment on above: Performed By: #### 3 1792 #### [facility] [address] [place] [address], [place] Glucose [Mass/Vol] 86 mg/dL Normal 70-100 [facility] Comment on above: Performed By: #### 8 5499 ####[facility] Glucose [Mass/Vol] 104 mg/dL High 70-100 [facility] Comment on above: Performed By: #### 8 5499 #### [facility] [address] [facility]. [address] PROTHROMBIN TIMEon 04-18- 0 INR Coag (PPP) [Relative time] 1.85 {INR} High 0.91-1.16 [facility] Comment on above: Order Comment: No: [...] CHEST 1995;108:231S-246S. Performed By: #### 1 0070, 75757 #### [facility] [address] [place] [address], [facility] PT Coag (PPP) [Time] 21.4 s High 12.3-14.8 [facility] Comment on above: Order Comment: No: D o not add to previous draw Result Comment: ALL RESULTS MUST BE INTERPRETED WITH RESPECT TO BLOOD DRAWING ARTIFACT OR DILUTION ERROR OF ANTICOAGULANT AT THE TIME OF SAMPLING. Performed By: #### 1 0, 70925 #### [facility] [address] [facility]. [address] CBC COMPLETE BLOOD COUNTon 06-18-2019 Erythrocyte distribution width (RBC) [Ratio] 14.6 % Normal 11.5-15.0 [facility] Comment on above: Order Comment: Unkno wn Performed By: #### 8 [id number] #### [facility] [address] [place] [address], [facility] Hematocrit (Bld) [Volume fraction] 41.7 % Normal 36.0-45.0 [facility] Comment on above: Order Comment: Unkno wn Performed By: #### 8 [id number] #### [facility] [address] [facility] [place] [address], [facility] Hemoglobin (Bld) [Mass/Vol] 13.4 g/dL Normal 12.0-15.0 [facility] Comment on above: Order Comment: Unkno wn Performed By: #### 8 [id number] #### [facility] [address] [place] [address], [facility] MCH (RBC) [Entitic mass] 29.0 pg Normal 27.0-33.0 [facility] Comment on above: Order Comment: Unkno wn Performed By: #### 8 [id number] #### [facility] [address] [place] [address], [facility] MCHC (RBC) [Mass/Vol] 32.1 g/dL Normal 32.0-35.0 [facility] Comment on above: Order Comment: Unkno wn Performed By: #### 8 5499 #### [facility] [address] [place] [address], [facility] MCV (RBC) [Entitic vol] 90.3 fL Normal 82.0-98.0 [facility] Comment on above: Order Comment: Unkno wn Performed By: #### 8 5499 #### [facility] [address] [place] [address], [facility] Nucleated RBC/100 WBC (Bld) [Ratio] 0 % Normal 0-0 [facility] Comment on above: Order Comment: Unkno wn Performed By: #### 8 5499 #### [facility] [address] [facility] [place] [address], [facility] PLAT CNT 294 10*3/uL Normal 150-400 [facility] Comment on above: Order Comment: Unkno wn Performed By: #### 8 5499 #### [facility] [address] [facility] [place] [address], [facility] RBC (Bld) [#/Vol] 4.62 10*6/uL Normal 3.80-5.00 The [place] Comment on above: Order Comment: Unkno wn Performed By: #### 8 5499 #### [facility] [address] [place] [address], [facility] WBC (Bld) [#/Vol] 9.33 10*3/uL Normal 4.00-10.60 [facility] [place] Comment on above: Order Comment: Unkno wn Performed By: #### 8 5499 #### [facility] [address] CBC W/DIFFon 04-17-2020 ABS IMM GRANS 0.0 10*3/uL Normal 0.0-0.2 The [facility] Comment on above: Order Comment: No: D o not add to previous draw Performed By: #### 8 5499 #### [facility] [address] ABS NEUTROPHILS 6.4 10*3/uL Normal 1.6-7.6 [facility] Comment on above: Order Comment: No: D o not add to previous draw Performed By: #### 8 5499 #### [facility] [address] [place] [address], [facility] Basophils (Bld) [#/Vol] 0.1 10*3/uL Normal 0.0-0.2 [facility] Comment on above: Order Comment: No: D o not add to previous draw Performed By: #### 8 5499 #### [facility] [address] [place] [address], [place] Basophils/100 WBC (Bld) 0.8 % Normal 0.0-1.0 [facility] Comment on above: Order Comment: No: D o not add to previous draw Performed By: #### 8 5499 #### [facility] [address] [place] [address], [place] Eosinophils (Bld) [#/Vol] 0.4 10*3/uL Normal 0.0-0.5 [facility] Comment on above: Order Comment: No: D o not add to previous draw Performed By: #### 8 5499 #### [facility] [address] [place] [address], [facility] Eosinophils/100 WBC (Bld) 3.3 % Normal 0.0-6.0 [facility] Comment on above: Order Comment: No: D o not add to previous draw Performed By: #### 8 5499 #### [facility] [address] [place] [address], [facility] Erythrocyte distribution width (RBC) [Ratio] 14.6 % Normal 11.5-15.0 [facility] Comment on above: Order Comment: No: D o not add to previous draw Performed By: #### 8 [id number] #### [facility] [address] [place] [address], [place] Hematocrit (Bld) [Volume fraction] 43.6 % Normal 36.0-45.0 [facility] Comment on above: Order Comment: No: D o not add to previous draw Performed By: #### 8 [id number] #### [facility] [address] [place] [address], [place] Hemoglobin (Bld) [Mass/Vol] 14.1 g/dL Normal 12.0-15.0 [facility] Comment on above: Order Comment: No: D o not add to previous draw Performed By: #### 8 5499 #### [facility] [address] [facility] [address], [facility] IMMATURE GRANS 0.4 % Normal 0.0-1.0 [facility] Comment on above: Order Comment: No: D o not add to previous draw Performed By: #### 8 [id number] #### [facility] [address] [facility] [place] [address], [facility] Lymphocytes (Bld) [#/Vol] 3.2 10*3/uL Normal 1.2-4.0 [facility] Comment on above: Order Comment: No: D o not add to previous draw Performed By: #### 8 [id number] #### [facility] [address] [place] [address], [facility] Lymphocytes/100 WBC (Bld) 29.7 % Normal 20.0-45.0 [facility] Comment on above: Order Comment: No: D o not add to previous draw Performed By: #### 8 [id number] #### [facility] [address] [facility] [place] [address], [facility] MCH (RBC) [Entitic mass] 29.1 pg Normal 27.0-33.0 [facility] Comment on above: Order Comment: No: D o not add to previous draw Performed By: #### 8 [id number] #### [facility] [address] [place] [address], [facility] MCHC (RBC) [Mass/Vol] 32.3 g/dL Normal 32.0-35.0 [facility] Comment on above: Order Comment: No: D o not add to previous draw Performed By: #### 8 [id number] #### [facility] [address] [place] [address], [facility] MCV (RBC) [Entitic vol] 89.9 fL Normal 82.0-98.0 [facility] Comment on above: Order Comment: No: D o not add to previous draw Performed By: #### 8 5499 #### [facility] [address] [place] [address], [facility] Monocytes (Bld) [#/Vol] 0.7 10*3/uL Normal 0.1-1.0 [facility] Comment on above: Order Comment: No: D o not add to previous draw Performed By: #### 8 5499 #### [facility] [address] [place] [address], [facility] MONOS 6.8 % Normal 5.0-12.0 [facility] Comment on above: Order Comment: No: D o not add to previous draw Performed By: #### 8 5499 #### [facility] [address] [place] [address], [facility] Neutrophils/100 WBC (Bld) 59.0 % Normal 40.0-72.0 [facility] Comment on above: Order Comment: No: D o not add to previous draw Performed By: #### 8 5499 #### [facility] [address] [place] [address], [facility] Nucleated RBC/100 WBC (Bld) [Ratio] 0 % Normal 0-0 [facility] Comment on above: Order Comment: No: D o not add to previous draw Performed By: #### 8 5499 #### [facility] [address] [place] [address], [facility] PLAT CNT 332 10*3/uL Normal 150-400 [facility] Comment on above: Order Comment: No: D o not add to previous draw Performed By: #### 8 5499 #### [facility] [address] [place] [address], [facility] RBC (Bld) [#/Vol] 4.85 10*6/uL Normal 3.80-5.00 [facility] [place] Comment on above: Order Comment: No: D o not add to previous draw Performed By: #### 8 5499 #### [facility] [address] [place] [address], [place] WBC (Bld) [#/Vol] 10.90 10*3/uL High 4.00-10.60 [facility] Comment on above: Order Comment: No: D o not add to previous draw Performed By: #### 8 5499 #### [facility] [address] [place] [address], [place] POC GLUCOSE LABon 04-17-2020 Glucose [Mass/Vol] 109 mg/dL High 70-100 [facility] Comment on above: Performed By: #### 3 1792 #### [facility] [address] [place] [address], [place] Glucose [Mass/Vol] 93 mg/dL Normal 70-100 [facility] Comment on above: Performed By: #### 3 5200 #### [facility] [address] [place] [address], [place] Glucose [Mass/Vol] 101 mg/dL High 70-100 [facility] Comment on above: Performed By: #### 8 5499 ####[facility] [facility] [place] [place] [address], [place] Glucose [Mass/Vol] 106 mg/dL High 70-100 [facility] Comment on above: Performed By: #### 8 5499 #### [facility] [address] [place] [address], [place] *BLOOD CULTUREon 04-16-2020 *BLOOD CULTURE Clinical Report: (D) Specimen: BLOOD CULTURE Collected: 04/16/2020 00:31 Status: Final Last Updated: 04/21/2020 06:49 CULT RES (Final) No Growth Day 5 Normal [facility] Comment on above: Performed By: #### 8 5499 #### [facility] [address] [place] [address], [place] APTTon 04-16-2020 aPTT Coag (Bld) [Time] 72.4 s Critically high 25.0-35.0 [facility] Comment on above: Order Comment: [...] 0.06 IU/ml . Performed By: #### 1 69, 00448 #### [facility] [address] BASIC METABOLIC PANELon 11-3 Calcium [Mass/Vol] 9.5 mg/dL Normal 8.6-10.3 [facility] Comment on above: Order Comment: No: D o not add to previous draw Performed By: #### 1 69, 11158 #### [facility] [address] [place] [id number], [facility] Chloride [Moles/Vol] 102 mmol/L Normal 98-107 [facility] Comment on above: Order Comment: No: D o not add to previous draw Performed By: #### 1 69, 08678 #### [facility] [address] [place] [address], [place] CO2 [Moles/Vol] 25 mmol/L Normal 21-31 [facility] Comment on above: Order Comment: No: D o not add to previous draw Performed By: #### 1 69, 23068 #### [facility] [address] [place] [id number], [facility] Creatinine [Mass/Vol] 0.69 mg/dL Normal 0.60-1.20 [facility] Comment on above: Order Comment: No: D o not add to previous draw Performed By: #### 1 0, 82534 #### [facility] [address] [place] [address], [place] GFR/1.73 sq M.predicted among blacks MDRD (S/P/Bld) [Vol rate/Area] mL/min/{1.73_m2} Normal >60 [facility] Comment on above: Order Comment: No: D o not add to previous draw Performed By: #### 1 0, 36105 #### [facility] [address] [place] [address], [place] GFR/1.73 sq M.predicted among non-blacks MDRD (S/P/Bld) [Vol rate/Area] mL/min/{1.73_m2} Normal >60 [facility] Comment on above: Order Comment: No: D o not add to previous draw Performed By: #### 1 69, 82956 #### [facility] [address] [place] [address], [place] Glucose [Mass/Vol] 102 mg/dL High 70-100 [facility] Comment on above: Order Comment: No: D o not add to previous draw Performed By: #### 1 69, 75853 #### [facility] [address] [place] [address], [place] Potassium [Moles/Vol] 3.5 mmol/L Normal 3.5-5.1 [facility] Comment on above: Order Comment: No: D o not add to previous draw Performed By: #### 1 0, 53671 #### [facility] [address] [place] [address], [place] Sodium [Moles/Vol] 136 mmol/L Normal 136-145 [facility] Comment on above: Order Comment: No: D o not add to previous draw Performed By: #### 1 69, 26795 #### [facility] [address] [place] [address], [place] Urea nitrogen [Mass/Vol] 14 mg/dL Normal 7-25 [facility] Comment on above: Order Comment: No: D o not add to previous draw Performed By: #### 1 0070, 84472 #### [facility] [address] [place] [address], [place] Calcium [Mass/Vol] 10.0 mg/dL Normal 8.6-10.3 [facility] Comment on above: Order Comment: No: D o not add to previous draw Performed By: #### 3 1791 #### [facility] [address] [place] [address], [place] Chloride [Moles/Vol] 101 mmol/L Normal 98-107 [facility] Comment on above: Order Comment: No: D o not add to previous draw Performed By: #### 3 179 #### [facility] [address] [place] [address], [place] CO2 [Moles/Vol] 26 mmol/L Normal 21-31 [facility] Comment on above: Order Comment: No: D o not add to previous draw Performed By: #### 3 1791 #### [facility] [address] [place] [address], [place] Creatinine [Mass/Vol] 0.74 mg/dL Normal 0.60-1.20 [facility] Comment on above: Order Comment: No: D o not add to previous draw Performed By: #### 3 179 #### [facility] [address] [place] [address], [place] GFR/1.73 sq M.predicted among blacks MDRD (S/P/Bld) [Vol rate/Area] mL/min/{1.73_m2} Normal >60 [facility] Comment on above: Order Comment: No: D o not add to previous draw Performed By: #### 3 1791 #### [facility] [address] [place] [address], [facility] GFR/1.73 sq M.predicted among non-blacks MDRD (S/P/Bld) [Vol rate/Area] mL/min/{1.73_m2} Normal >60 [facility] Comment on above: Order Comment: No: D o not add to previous draw Performed By: #### 3 1791 #### [facility] [address] [place] [address], [facility] Glucose [Mass/Vol] 109 mg/dL High 70-100 [facility] Comment on above: Order Comment: No: D o not add to previous draw Performed By: #### 3 179 #### [facility] [address] [place] [address], [facility] Potassium [Moles/Vol] 3.7 mmol/L Normal 3.5-5.1 [facility] Comment on above: Order Comment: No: D o not add to previous draw Performed By: #### 3 179 #### [facility] [address] [place] [address], [facility] Sodium [Moles/Vol] 136 mmol/L Normal 136-145 [facility] Comment on above: Order Comment: No: D o not add to previous draw Performed By: #### 3 1791 #### [facility] [address] [place] [address], [facility] Urea nitrogen [Mass/Vol] 14 mg/dL Normal 7-25 [facility] Comment on above: Order Comment: No: D o not add to previous draw Performed By: #### 3 179 #### [facility] [address] [place] [address], [facility] CBC W/DIFFon 04-16-2020 ABS IMM GRANS 0.0 10*3/uL Normal 0.0-0.2 [facility] Comment on above: Order Comment: No: D o not add to previous draw Performed By: #### 8 5499 #### [facility] [address] [place] [address], [facility] ABS NEUTROPHILS 7.2 10*3/uL Normal 1.6-7.6 [facility] Comment on above: Order Comment: No: D o not add to previous draw Performed By: #### 8 5499 #### [facility] [address] [place] [address], [facility] Basophils (Bld) [#/Vol] 0.1 10*3/uL Normal 0.0-0.2 [facility] Comment on above: Order Comment: No: D o not add to previous draw Performed By: #### 8 5499 #### [facility] [address] [place] [address], [facility] Basophils/100 WBC (Bld) 0.7 % Normal 0.0-1.0 [facility] Comment on above: Order Comment: No: D o not add to previous draw Performed By: #### 8 5499 #### [facility] [address] [place] [address], [facility] Eosinophils (Bld) [#/Vol] 0.2 10*3/uL Normal 0.0-0.5 [facility] Comment on above: Order Comment: No: D o not add to previous draw Performed By: #### 8 5499 #### [facility] [address] [place] [id number], [place] Eosinophils/100 WBC (Bld) 2.1 % Normal 0.0-6.0 [facility] Comment on above: Order Comment: No: D o not add to previous draw Performed By: #### 8 5499 #### [facility] [address] [place] [id number], [place] Erythrocyte distribution width (RBC) [Ratio] 14.4 % Normal 11.5-15.0 [facility] Comment on above: Order Comment: No: D o not add to previous draw Performed By: #### 8 5499 #### [facility] [address] [place] [address], [facility] Hematocrit (Bld) [Volume fraction] 43.2 % Normal 36.0-45.0 [facility] Comment on above: Order Comment: No: D o not add to previous draw Performed By: #### 8 5499 #### [facility] [address] [place] [address], [facility] Hemoglobin (Bld) [Mass/Vol] 14.2 g/dL Normal 12.0-15.0 [facility] Comment on above: Order Comment: No: D o not add to previous draw Performed By: #### 8 5499 #### [facility] [address] [place] [address], [facility] IMMATURE GRANS 0.3 % Normal 0.0-1.0 [facility] Comment on above: Order Comment: No: D o not add to previous draw Performed By: #### 8 5499 #### [facility] [address] [place] [address], [facility] Lymphocytes (Bld) [#/Vol] 2.9 10*3/uL Normal 1.2-4.0 [facility] Comment on above: Order Comment: No: D o not add to previous draw Performed By: #### 8 5499 #### [facility] [address] [place] [address], [facility] Lymphocytes/100 WBC (Bld) 25.1 % Normal 20.0-45.0 [facility] Comment on above: Order Comment: No: D o not add to previous draw Performed By: #### 8 5499 #### [facility] [address] [place] [address], [facility] MCH (RBC) [Entitic mass] 29.5 pg Normal 27.0-33.0 [facility] Comment on above: Order Comment: No: D o not add to previous draw Performed By: #### 8 5499 #### [facility] [address] [place] [address], [facility] MCHC (RBC) [Mass/Vol] 32.9 g/dL Normal 32.0-35.0 [facility] Comment on above: Order Comment: No: D o not add to previous draw Performed By: #### 8 5499 #### [facility] [address] [place] [address], [facility] MCV (RBC) [Entitic vol] 89.8 fL Normal 82.0-98.0 [facility] Comment on above: Order Comment: No: D o not add to previous draw Performed By: #### 8 5499 #### [facility] [address] [place] [address], [facility] Monocytes (Bld) [#/Vol] 0.9 10*3/uL Normal 0.1-1.0 [facility] Comment on above: Order Comment: No: D o not add to previous draw Performed By: #### 8 5499 #### [facility] [address] [facility] [address], [facility] MONOS 8.0 % Normal 5.0-12.0 [facility] Comment on above: Order Comment: No: D o not add to previous draw Performed By: #### 8 5499 #### [facility] [address] [place] [address], [facility] Neutrophils/100 WBC (Bld) 63.8 % Normal 40.0-72.0 [facility] Comment on above: Order Comment: No: D o not add to previous draw Performed By: #### 8 5499 #### [facility] [address] [place] [address], [facility] Nucleated RBC/100 WBC (Bld) [Ratio] 0 % Normal 0-0 [facility] Comment on above: Order Comment: No: D o not add to previous draw Performed By: #### 8 5499 #### [facility] [address] [facility] [place] [address], [facility] PLAT CNT 335 10*3/uL Normal 150-400 [facility] Comment on above: Order Comment: No: D o not add to previous draw Performed By: #### 8 5499 #### [facility] [address] [facility] [place] [place] [address], [facility] RBC (Bld) [#/Vol] 4.81 10*6/uL Normal 3.80-5.00 [facility] [place] Comment on above: Order Comment: No: D o not add to previous draw Performed By: #### 8 5499 #### [facility] [address] [facility] [place] [place] [address], [facility] WBC (Bld) [#/Vol] 11.34 10*3/uL High 4.00-10.60 [facility] Comment on above: Order Comment: No: D o not add to previous draw Performed By: #### 8 5499 #### [place] [address], [facility] CTA CHESTon 04-16-2020 CTA CHEST [facility] Department of Radiology [address] [place], [place] [id number] Patient Name: HORTENSIA BATES : 1955 Sex: F Age: Race: White Pt. Location: [address] [place] [address] Patient Status: D Ordered Date: 04/16/2020 9:05:00 [...] criteria Electronically signed: Jax Perez. Transcribed by: [email or web address], User Resident: Electronically Signed by: LA NENA DIAZ @ 05/28/2020 12:26 AM Normal [facility] Comment on above: Order Comment: Other , Planned for AFib albation, anatomy of pulmonary veins MAGNESIUM BLOODon 04-16-2020 Magnesium [Mass/Vol] 1.7 mg/dL Low 1.9-2.7 [facility] Comment on above: Order Comment: No: D o not add to previous draw Performed By: #### 1 0070, 73210 #### [facility] [address] [facility] [place] [address], [facility] Magnesium [Mass/Vol] 1.8 mg/dL Low 1.9-2.7 [facility] Comment on above: Order Comment: No: D o not add to previous draw Performed By: #### 1 0070, 44396 #### [facility] [address] [place] [address], [facility] PHOSPHORUS BLOODon 0 Phosphate [Mass/Vol] 3.6 mg/dL Normal 2.5-5.0 [facility] Comment on above: Order Comment: No: D o not add to previous draw Performed By: #### 1 0070, 88070 #### [facility] [address] [place] [address], [facility] POC GLUCOSE LABon 04-16-2020 Glucose [Mass/Vol] 111 mg/dL High 70-100 [facility] Comment on above: Performed By: #### 8 5499 ####[facility] [place] [address], [place] Glucose [Mass/Vol] 122 mg/dL High 70-100 [facility] Comment on above: Performed By: #### 3 5200 #### [facility] [address] [place] [address], [place] Glucose [Mass/Vol] 105 mg/dL High 70-100 [facility] Comment on above: Performed By: #### 8 5499 ####[facility] [place] [address], [place] Glucose [Mass/Vol] 106 mg/dL High 70-100 [facility] Comment on above: Performed By: #### 8 5499 #### [facility] [address] [place] [address], [place] PROTHROMBIN TIMEon 0 INR Coag (PPP) [Relative time] 2.24 {INR} High 0.91-1.16 [facility] Comment on above: Order Comment: No: [...] CHEST 1995;108:[id number]. Performed By: #### 1 0070, 97445 #### [facility] [address] [place] [address], [facility] PT Coag (PPP) [Time] 24.9 s High 12.3-14.8 [facility] Comment on above: Order Comment: No: D o not add to previous draw Result Comment: ALL RESULTS MUST BE INTERPRETED WITH RESPECT TO BLOOD DRAWING ARTIFACT OR DILUTION ERROR OF ANTICOAGULANT AT THE TIME OF SAMPLING. Performed By: #### 1 0070, 37247 #### [facility] [address] [place] [address], [facility] TROPONIN-Ion 04-16-2020 Troponin I.cardiac [Mass/Vol] 0.01 ng/mL Normal 0.00-0.04 [facility] Comment on above: Order Comment: No: D o not add to previous draw Result Comment: REFE RENCE RANGES: 0.00 - 0.04 ng/ml NORMAL 0.05 - 0.50 ng/ml INDETERMINATE > 0.50 ng/ml CONSISTENT WITH AN M.I. Performed By: #### 3 5200 #### [facility] [address] [place] [address], [facility] Troponin I.cardiac [Mass/Vol] 0.01 ng/mL Normal 0.00-0.04 [facility] Comment on above: Order Comment: No: D o not add to previous draw Result Comment: REFE RENCE RANGES: 0.00 - 0.04 ng/ml NORMAL 0.05 - 0.50 ng/ml INDETERMINATE > 0.50 ng/ml CONSISTENT WITH AN M.I. Performed By: #### 3 1791 #### [facility] [address] Troponin I.cardiac [Mass/Vol] 0.01 ng/mL Normal 0.00-0.04 [facility] Comment on above: Order Comment: No: D o not add to previous draw Result Comment: REFE RENCE RANGES: 0.00 - 0.04 ng/ml NORMAL 0.05 - 0.50 ng/ml INDETERMINATE > 0.50 ng/ml CONSISTENT WITH AN M.I. Performed By: #### 3 1791 #### [facility] [address] [facility]. [address] UFH HEPARIN ASSAYon 04-16-20 20 UNFRACTIONATED HEPARIN 0.28 IU/mL Low 0.30-0.70 [facility] Comment on above: Result Comment: [place] roxaban and Apixaban will interfere with the anti Xa assay used to monitor UFH and LMWH. Performed By: #### 1 0070, 84045 #### [facility] [address] MAGNESIUM BLOODon 04-01-2020 Magnesium [Mass/Vol] 2.0 mg/dL Normal 1.9-2.7 [facility] Comment on above: Order Comment: No: D o not add to previous draw Performed By: #### 1 0070, 72975 #### [facility] [address] POTASSIUM BLOODon 04-01-2020 Potassium [Moles/Vol] 3.6 mmol/L Normal 3.5-5.1 [facility] Comment on above: Order Comment: No: D o not add to previous draw Performed By: #### 1 0070, 61346 #### [facility] [address] [place] [address], [facility] PROTHROMBIN TIMEon 0 INR Coag (PPP) [Relative time] 1.99 {INR} High 0.91-1.16 [facility] Comment on above: Order Comment: Lashaun [...] 1995;[id number]. Performed By: #### 8 5499 #### [facility] [address] [place] [address], [facility] PT Coag (PPP) [Time] 22.7 s High 12.3-14.8 [facility] Comment on above: Order Comment: Lashaun wn Result Comment: ALL RESULTS MUST BE INTERPRETED WITH RESPECT TO BLOOD DRAWING ARTIFACT OR DILUTION ERROR OF ANTICOAGULANT AT THE TIME OF SAMPLING. Performed By: #### 8 5499 #### [facility] [address] [place] [address], [facility] BASIC METABOLIC PANELon 11-1 Calcium [Mass/Vol] 8.8 mg/dL Normal 8.6-10.3 [facility] Comment on above: Order Comment: No: D o not add to previous draw Performed By: #### 1 0070, 65852 #### [facility] [address] [place] [id number], [facility] Chloride [Moles/Vol] 103 mmol/L Normal 98-107 [facility] Comment on above: Order Comment: No: D o not add to previous draw Performed By: #### 1 0, 77882 #### [facility] [address] [place] [address], [place] CO2 [Moles/Vol] 26 mmol/L Normal 21-31 [facility] Comment on above: Order Comment: No: D o not add to previous draw Performed By: #### 1 0, 20607 #### [facility] [address] [place] [address], [place] Creatinine [Mass/Vol] 0.75 mg/dL Normal 0.60-1.20 [facility] Comment on above: Order Comment: No: D o not add to previous draw Performed By: #### 1 0, 71956 #### [facility] [address] [place] [address], [place] GFR/1.73 sq M.predicted among blacks MDRD (S/P/Bld) [Vol rate/Area] mL/min/{1.73_m2} Normal >60 [facility] Comment on above: Order Comment: No: D o not add to previous draw Performed By: #### 1 69, 48300 #### [facility] [address] [place] [address], [place] GFR/1.73 sq M.predicted among non-blacks MDRD (S/P/Bld) [Vol rate/Area] mL/min/{1.73_m2} Normal >60 [facility] Comment on above: Order Comment: No: D o not add to previous draw Performed By: #### 1 0, 00560 #### [facility] [address] [place] [address], [place] Glucose [Mass/Vol] 88 mg/dL Normal 70-100 [facility] Comment on above: Order Comment: No: D o not add to previous draw Performed By: #### 1 69, 11531 #### [facility] [address] [place] [address], [place] Potassium [Moles/Vol] 3.8 mmol/L Normal 3.5-5.1 [facility] Comment on above: Order Comment: No: D o not add to previous draw Performed By: #### 1 0070, 24113 #### [facility] [address] [place] [address], [place] Sodium [Moles/Vol] 135 mmol/L Low 136-145 [facility] Comment on above: Order Comment: No: D o not add to previous draw Performed By: #### 1 0070, 28600 #### [facility] [address] [place] [address], [place] Urea nitrogen [Mass/Vol] 17 mg/dL Normal 7-25 [facility] Comment on above: Order Comment: No: D o not add to previous draw Performed By: #### 1 0070, 16300 #### [facility] [address] [place] [address], [place] MAGNESIUM BLOODon 03-31-2020 Magnesium [Mass/Vol] 1.9 mg/dL Normal 1.9-2.7 [facility] Comment on above: Order Comment: No: D o not add to previous draw Performed By: #### 1 0070, 05944 #### [facility] [address] [place] [address], [place] POC GLUCOSE LABon 03-31-2020 Glucose [Mass/Vol] 95 mg/dL Normal 70-100 [facility] Comment on above: Performed By: #### 3 5200 #### [facility] [address] [place] [address], [place] Glucose [Mass/Vol] 86 mg/dL Normal 70-100 [facility] Comment on above: Performed By: #### 8 5499 #### [facility] [address] [place] [address], [place] Glucose [Mass/Vol] 82 mg/dL Normal 70-100 [facility] Comment on above: Performed By: #### 3 1792 #### [facility] [address] Glucose [Mass/Vol] 92 mg/dL Normal 70-100 [facility] Comment on above: Performed By: #### 8 5499 ####[facility] Glucose [Mass/Vol] 96 mg/dL Normal 70-100 [facility] Comment on above: Performed By: #### 8 5499 ####[facility] PROTHROMBIN TIMEon 03-31-202 0 INR Coag (PPP) [Relative time] 1.80 {INR} High 0.91-1.16 [facility] Comment on above: Order Comment: No: [...] CHEST 1995;108:231S-246S. Performed By: #### 1 0070, 16482 #### [facility] [address] [place] [address], [facility] PT Coag (PPP) [Time] 21.0 s High 12.3-14.8 [facility] Comment on above: Order Comment: No: D o not add to previous draw Result Comment: ALL RESULTS MUST BE INTERPRETED WITH RESPECT TO BLOOD DRAWING ARTIFACT OR DILUTION ERROR OF ANTICOAGULANT AT THE TIME OF SAMPLING. Performed By: #### 1 0, 89412 #### [facility] [address] [place] [address], [facility] BASIC METABOLIC PANELon 11-1 Calcium [Mass/Vol] 9.0 mg/dL Normal 8.6-10.3 [facility] Comment on above: Order Comment: No: D o not add to previous draw Performed By: #### 1 69, 15663 #### [facility] [address] [place] [address], [facility] Chloride [Moles/Vol] 101 mmol/L Normal 98-107 [facility] Comment on above: Order Comment: No: D o not add to previous draw Performed By: #### 1 69, 88987 #### [facility] [address] [place] [address], [facility] CO2 [Moles/Vol] 25 mmol/L Normal 21-31 [facility] Comment on above: Order Comment: No: D o not add to previous draw Performed By: #### 1 69, 34400 #### [facility] [address] [place] [address], [place] Creatinine [Mass/Vol] 0.90 mg/dL Normal 0.60-1.20 [facility] Comment on above: Order Comment: No: D o not add to previous draw Performed By: #### 1 69, 14559 #### [facility] [address] [place] [address], [place] GFR/1.73 sq M.predicted among blacks MDRD (S/P/Bld) [Vol rate/Area] mL/min/{1.73_m2} Normal >60 [facility] Comment on above: Order Comment: No: D o not add to previous draw Performed By: #### 1 0, 12514 #### [facility] [address] [place] [address], [place] GFR/1.73 sq M.predicted among non-blacks MDRD (S/P/Bld) [Vol rate/Area] mL/min/{1.73_m2} Normal >60 [facility] Comment on above: Order Comment: No: D o not add to previous draw Performed By: #### 1 0, 65157 #### [facility] [address] [place] [address], [place] Glucose [Mass/Vol] 77 mg/dL Normal 70-100 [facility] Comment on above: Order Comment: No: D o not add to previous draw Performed By: #### 1 69, 71790 #### [facility] [address] [place] [address], [place] Potassium [Moles/Vol] 4.0 mmol/L Normal 3.5-5.1 [facility] Comment on above: Order Comment: No: D o not add to previous draw Performed By: #### 1 69, 72297 #### [facility] [address] [place] [address], [place] Sodium [Moles/Vol] 135 mmol/L Low 136-145 [facility] Comment on above: Order Comment: No: D o not add to previous draw Performed By: #### 1 0, 15578 #### [facility] [address] [place] [address], [place] Urea nitrogen [Mass/Vol] 17 mg/dL Normal 7-25 [facility] Comment on above: Order Comment: No: D o not add to previous draw Performed By: #### 1 0, 23361 #### [facility] [address] [place] [address], [facility] CBC COMPLETE BLOOD COUNTon 05-30-2019 Erythrocyte distribution width (RBC) [Ratio] 14.9 % Normal 11.5-15.0 [facility] Comment on above: Order Comment: No: D o not add to previous draw Performed By: #### 8 5499 #### [facility] [address] [place] [address], [facility] Hematocrit (Bld) [Volume fraction] 47.5 % High 36.0-45.0 [facility] Comment on above: Order Comment: No: D o not add to previous draw Performed By: #### 8 5499 #### [facility] [address] [place] [address], [facility] Hemoglobin (Bld) [Mass/Vol] 15.3 g/dL High 12.0-15.0 [facility] Comment on above: Order Comment: No: D o not add to previous draw Performed By: #### 8 5499 #### [facility] [address] [place] [address], [facility] MCH (RBC) [Entitic mass] 29.7 pg Normal 27.0-33.0 [facility] Comment on above: Order Comment: No: D o not add to previous draw Performed By: #### 8 5499 #### [facility] [address] [place] [address], [facility] MCHC (RBC) [Mass/Vol] 32.2 g/dL Normal 32.0-35.0 [facility] Comment on above: Order Comment: No: D o not add to previous draw Performed By: #### 8 5499 #### [facility] [address] [place] [address], [facility] MCV (RBC) [Entitic vol] 92.1 fL Normal 82.0-98.0 [facility] Comment on above: Order Comment: No: D o not add to previous draw Performed By: #### 8 5499 #### [facility] [address] [facility] [place] [place] [address], [facility] Nucleated RBC/100 WBC (Bld) [Ratio] 0 % Normal 0-0 [facility] Comment on above: Order Comment: No: D o not add to previous draw Performed By: #### 8 5499 #### [facility] [address] [place] [address], [place] PLAT CNT 321 10*3/uL Normal 150-400 [facility] Comment on above: Order Comment: No: D o not add to previous draw Performed By: #### 8 5499 #### [facility] [address] [facility] [place] [address], [facility] RBC (Bld) [#/Vol] 5.16 10*6/uL High 3.80-5.00 [facility] [place] Comment on above: Order Comment: No: D o not add to previous draw Performed By: #### 8 5499 #### [facility] [address] [facility] [place] [address], [facility] WBC (Bld) [#/Vol] 12.02 10*3/uL High 4.00-10.60 [facility] Comment on above: Order Comment: No: D o not add to previous draw Performed By: #### 8 5499 #### [facility] [address] Cardiovascular Lab Reporton 03-30-2020 Cardiovascular Lab Report [facility] Patient Name: [facility] Hortensia Berry MR #: [id number] Department of Physician: Jessica Lopez M.D. Division of Service Date: 03/30/2020 Cardiology Birthdate: 1955 Adult Cardiovascular Room #: [id number] [facility] [address] [place] [address] Cardiovascular Laboratory Report CLINICAL PRESENTATION: The patient [...] infiltrated over the right radial artery. A 6-Citizen Of [place] Terumo Glidesheath slender was placed in right radial artery. The radial anti-vasospasm cocktail of verapamil 2.5 mg and nitroglycerin 200 mcg was administered through the sheath. All catheter exchanges were made over the Vdolg guidewire. A 5-Citizen Of [place] JR5 was used to engage the right coronary artery. A 5-Citizen [place] JL3.5 was used to engage the left [...] Arango M.D. Date Trans: 03/30/2020 01:43 P/mmo [id number] Normal [facility] MAGNESIUM BLOODon 03-30-2020 Magnesium [Mass/Vol] 2.1 mg/dL Normal 1.9-2.7 [facility] Comment on above: Order Comment: No: D o not add to previous draw Performed By: #### 1 0070, 18722 #### [facility] [address] [place] [address], [facility] POC GLUCOSE LABon 03-30-2020 Glucose [Mass/Vol] 94 mg/dL Normal 70-100 [facility] Comment on above: Performed By: #### 8 5499 ####[facility] [place] [address], [facility] Glucose [Mass/Vol] 95 mg/dL Normal 70-100 [facility] Comment on above: Performed By: #### 3 5200 #### [facility] [address] [place] [address], [place] Glucose [Mass/Vol] 86 mg/dL Normal 70-100 [facility] Comment on above: Performed By: #### 8 5499 ####[facility] [place] [address], [facility] PROTHROMBIN TIMEon 0 INR Coag (PPP) [Relative time] 1.88 {INR} High 0.91-1.16 [facility] Comment on above: Order Comment: Yes: [...] 1995;108:231S-246S. Performed By: #### 8 5499 #### [facility] [address] PT Coag (PPP) [Time] 21.7 s High 12.3-14.8 [facility] Comment on above: Order Comment: Yes: Add to Previous draw if able Result Comment: ALL RESULTS MUST BE INTERPRETED WITH RESPECT TO BLOOD DRAWING ARTIFACT OR DILUTION ERROR OF ANTICOAGULANT AT THE TIME OF SAMPLING. Performed By: #### 8 5499 #### [facility] [address] *SARS-CoV-2 COVID-19on 03-29 SARS-CoV-2 (COVID-19) RNA JAS+probe Ql (Unsp spec) Not detected Normal Not Detected [facility] Comment on above: Order Comment: The A ptima SARS-CoV-2 assay is a nucleic acid amplification test intended for the qualitative detection of RNA from SARS-CoV-2 isolated and purified from nasopharyngeal (ANTIQUE JEWELRY REPAIRER),oropharyngeal (OP), nasal swab, sputum, and bronchoalveolar lavage (BAL) specimens from patients with signs and symptoms of infection who are suspected of COVID-19. Results are for the identification of SARS-CoV-2 RNA. The SARS-CoV-2 RNA is generally detectable during the acute phase of infection. The Aptima SARS-CoV-2 Assay on the rocket staff and rocket staff Fusion system is intended for use by laboratory personnel specifically instructed and trained in the operation of the [place] and [place] Fusion system. The Aptima SARS-CoV-2 assay is [...] information. Performed By: #### 3 1792 #### [facility] [address] APTTon 03-29-2020 aPTT Coag (Bld) [Time] 52.2 s High 25.0-35.0 [facility] Comment on above: Order Comment: No: [...] >0.10 Performed By: #### 8 5499 #### [facility] [address] CBC W/DIFFon 03-29-2020 ABS IMM GRANS 0.0 10*3/uL Normal 0.0-0.2 [facility] Comment on above: Order Comment: No: D o not add to previous draw Performed By: #### 8 5499 #### [facility] [address] ABS NEUTROPHILS 7.5 10*3/uL Normal 1.6-7.6 [facility] Comment on above: Order Comment: No: D o not add to previous draw Performed By: #### 8 5499 #### [facility] [address] Basophils (Bld) [#/Vol] 0.1 10*3/uL Normal 0.0-0.2 [facility] Comment on above: Order Comment: No: D o not add to previous draw Performed By: #### 8 5499 #### [facility] [address] [place] [address], [facility] Basophils/100 WBC (Bld) 0.6 % Normal 0.0-1.0 [facility] Comment on above: Order Comment: No: D o not add to previous draw Performed By: #### 8 5499 #### [facility] [address] [place] [address], [place] Eosinophils (Bld) [#/Vol] 0.3 10*3/uL Normal 0.0-0.5 [facility] Comment on above: Order Comment: No: D o not add to previous draw Performed By: #### 8 5499 #### [facility] [address] [place] [address], [facility] Eosinophils/100 WBC (Bld) 2.1 % Normal 0.0-6.0 [facility] Comment on above: Order Comment: No: D o not add to previous draw Performed By: #### 8 5499 #### [facility] [address] [place] [address], [facility] Erythrocyte distribution width (RBC) [Ratio] 14.7 % Normal 11.5-15.0 [facility] Comment on above: Order Comment: No: D o not add to previous draw Performed By: #### 8 5499 #### [facility] [address] [place] [address], [facility] Hematocrit (Bld) [Volume fraction] 48.0 % High 36.0-45.0 [facility] Comment on above: Order Comment: No: D o not add to previous draw Performed By: #### 8 5499 #### [facility] [address] [place] [address], [place] Hemoglobin (Bld) [Mass/Vol] 15.5 g/dL High 12.0-15.0 [facility] Comment on above: Order Comment: No: D o not add to previous draw Performed By: #### 8 5499 #### [facility] [address] [place] [address], [facility] IMMATURE GRANS 0.3 % Normal 0.0-1.0 [facility] Comment on above: Order Comment: No: D o not add to previous draw Performed By: #### 8 5499 #### [facility] [address] [facility] [place] [address], [facility] Lymphocytes (Bld) [#/Vol] 3.7 10*3/uL Normal 1.2-4.0 [facility] Comment on above: Order Comment: No: D o not add to previous draw Performed By: #### 8 5499 #### [facility] [address] [place] [id number], [facility] Lymphocytes/100 WBC (Bld) 29.6 % Normal 20.0-45.0 [facility] Comment on above: Order Comment: No: D o not add to previous draw Performed By: #### 8 5499 #### [facility] [address] [facility] [place] [id number], [facility] MCH (RBC) [Entitic mass] 28.8 pg Normal 27.0-33.0 [facility] Comment on above: Order Comment: No: D o not add to previous draw Performed By: #### 8 5499 #### [facility] [address] [facility] [place] [id number], [facility] MCHC (RBC) [Mass/Vol] 32.3 g/dL Normal 32.0-35.0 [facility] Comment on above: Order Comment: No: D o not add to previous draw Performed By: #### 8 5499 #### [facility] [address] [place] [address], [facility] MCV (RBC) [Entitic vol] 89.1 fL Normal 82.0-98.0 [facility] Comment on above: Order Comment: No: D o not add to previous draw Performed By: #### 8 5499 #### [facility] [address] [place] [address], [facility] Monocytes (Bld) [#/Vol] 0.9 10*3/uL Normal 0.1-1.0 [facility] Comment on above: Order Comment: No: D o not add to previous draw Performed By: #### 8 5499 #### [facility] [address] [place] [address], [facility] MONOS 7.2 % Normal 5.0-12.0 [facility] Comment on above: Order Comment: No: D o not add to previous draw Performed By: #### 8 5499 #### [facility] [address] [place] [address], [facility] Neutrophils/100 WBC (Bld) 60.2 % Normal 40.0-72.0 [facility] Comment on above: Order Comment: No: D o not add to previous draw Performed By: #### 8 5499 #### [facility] [address] [facility] [address], [facility] Nucleated RBC/100 WBC (Bld) [Ratio] 0 % Normal 0-0 [facility] Comment on above: Order Comment: No: D o not add to previous draw Performed By: #### 8 5499 #### [facility] [address] [place] [address], [facility] PLAT CNT 366 10*3/uL Normal 150-400 [facility] Comment on above: Order Comment: No: D o not add to previous draw Performed By: #### 8 5499 #### [facility] [address] [place] [address], [facility] RBC (Bld) [#/Vol] 5.39 10*6/uL High 3.80-5.00 [facility] Comment on above: Order Comment: No: D o not add to previous draw Performed By: #### 8 5499 #### [facility] [address] [place] [address], [facility] WBC (Bld) [#/Vol] 12.38 10*3/uL High 4.00-10.60 [facility] Comment on above: Order Comment: No: D o not add to previous draw Performed By: #### 8 5499 #### [facility] [address] [place] [address], [facility] COMP METABOLIC PANELon 03-29 Albumin [Mass/Vol] 4.1 g/dL Normal 3.5-5.7 [facility] Comment on above: Order Comment: No: D o not add to previous draw Performed By: #### 1 69, 04338 #### [facility] [address] [place] [address], [place] ALKALINE PHOSPH 48 IU/L Normal 34-104 [facility] Comment on above: Order Comment: No: D o not add to previous draw Performed By: #### 1 69, 81897 #### [facility] [address] [place] [address], [place] ALT [Catalytic activity/Vol] 19 U/L Normal 7-52 [facility] Comment on above: Order Comment: No: D o not add to previous draw Performed By: #### 1 0, 09389 #### [facility] [address] [place] [address], [place] AST [Catalytic activity/Vol] 19 U/L Normal 13-39 [facility] Comment on above: Order Comment: No: D o not add to previous draw Performed By: #### 1 0, 95898 #### [facility] [address] [place] [address], [place] Bilirubin [Mass/Vol] 0.8 mg/dL Normal 0.3-1.0 [facility] Comment on above: Order Comment: No: D o not add to previous draw Performed By: #### 1 0070, 68617 #### [facility] [address] [place] [address], [place] Calcium [Mass/Vol] 9.8 mg/dL Normal 8.6-10.3 [facility] Comment on above: Order Comment: No: D o not add to previous draw Performed By: #### 1 0070, 92725 #### [facility] [address] [place] [address], [place] Chloride [Moles/Vol] 100 mmol/L Normal 98-107 [facility] Comment on above: Order Comment: No: D o not add to previous draw Performed By: #### 1 0, 78814 #### [facility] [address] [place] [address], [place] CO2 [Moles/Vol] 26 mmol/L Normal 21-31 [facility] Comment on above: Order Comment: No: D o not add to previous draw Performed By: #### 1 0, 62125 #### [facility] [address] [place] [address], [place] Creatinine [Mass/Vol] 0.71 mg/dL Normal 0.60-1.20 [facility] Comment on above: Order Comment: No: D o not add to previous draw Performed By: #### 1 0, 29112 #### [facility] [address] [place] [address], [place] GFR/1.73 sq M.predicted among blacks MDRD (S/P/Bld) [Vol rate/Area] mL/min/{1.73_m2} Normal >60 [facility] Comment on above: Order Comment: No: D o not add to previous draw Performed By: #### 1 0070, 17454 #### [facility] [address] [place] [address], [place] GFR/1.73 sq M.predicted among non-blacks MDRD (S/P/Bld) [Vol rate/Area] mL/min/{1.73_m2} Normal >60 [facility] Comment on above: Order Comment: No: D o not add to previous draw Performed By: #### 1 0, 23540 #### [facility] [address] [place] [address], [place] Glucose [Mass/Vol] 107 mg/dL High 70-100 [facility] Comment on above: Order Comment: No: D o not add to previous draw Performed By: #### 1 0, 81153 #### [facility] [address] [place] [address], [place] Potassium [Moles/Vol] 3.9 mmol/L Normal 3.5-5.1 [facility] Comment on above: Order Comment: No: D o not add to previous draw Performed By: #### 1 0, 88841 #### [facility] [address] [place] [address], [place] Protein [Mass/Vol] 7.5 g/dL Normal 6.0-8.3 [facility] Comment on above: Order Comment: No: D o not add to previous draw Performed By: #### 1 69, 10141 #### [facility] [address] [place] [address], [place] Sodium [Moles/Vol] 136 mmol/L Normal 136-145 [facility] Comment on above: Order Comment: No: D o not add to previous draw Performed By: #### 1 0, 82338 #### [facility] [address] [place] [address], [place] Urea nitrogen [Mass/Vol] 12 mg/dL Normal 7-25 [facility] Comment on above: Order Comment: No: D o not add to previous draw Performed By: #### 1 69, 48465 #### [facility] [address] [place] [address], [place] D DIMER TESTon 03-29-2020 D-DIMER TEST <0.27 Low 0.27-0.49 [facility] Comment on above: Order Comment: No: D o not add to previous draw Result Comment: D-Di elisa values of less than 0.50 ug/ml (FEU) are considered to be a negative predictor of thrombosis. However, the D-Dimer result should be used in conjunction with pretest probability and should not be used alone to diagnose a thrombotic event. Performed By: #### 1 0070, 13996 #### [facility] [address] HEMOGLOBIN A1Con 03-29-2020 Glucose [Moles/Vol] 111 mmol/L Normal [facility] Comment on above: Order Comment: No: D o not add to previous draw Performed By: #### 3 1791 #### [facility] [address] HbA1c (Bld) [Mass fraction] 5.5 % Normal 4.0-6.0 [facility] Comment on above: Order Comment: No: D o not add to previous draw Performed By: #### 3 1791 #### [facility] [address] [place] [address], [facility] MAGNESIUM BLOODon 03-29-2020 Magnesium [Mass/Vol] 2.0 mg/dL Normal 1.9-2.7 [facility] Comment on above: Order Comment: No: D o not add to previous draw Performed By: #### 1 0070, 19488 #### [facility] [address] [place] [address], [facility] PROTHROMBIN TIMEon 0 INR Coag (PPP) [Relative time] 1.84 {INR} High 0.91-1.16 [facility] Comment on above: Order Comment: No: [...] 1995;108:231S-246S. Performed By: #### 8 5499 #### [facility] [address] [facility]. [address] PT Coag (PPP) [Time] 21.3 s High 12.3-14.8 [facility] Comment on above: Order Comment: No: D o not add to previous draw Result Comment: ALL RESULTS MUST BE INTERPRETED WITH RESPECT TO BLOOD DRAWING ARTIFACT OR DILUTION ERROR OF ANTICOAGULANT AT THE TIME OF SAMPLING. Performed By: #### 8 5499 #### [facility] [address] [facility]. [address] TROPONIN-Ion 03-29-2020 Troponin I.cardiac [Mass/Vol] 0.00 ng/mL Normal 0.00-0.04 [facility] Comment on above: Order Comment: No: D o not add to previous draw Result Comment: REFE RENCE RANGES: 0.00 - 0.14 ng/ml NEGATIVE 0.15 - 0.25 ng/ml INDETERMINATE > 0.25 ng/ml INDICATIVE OF AN M.I. Performed By: #### 1 0070, 01686 #### [facility] [address] TSH3on 03-29-2020 TSH 3RD GENERATION 3.72 uIU/mL Normal 0.34-5.60 [facility] Comment on above: Order Comment: No: D o not add to previous draw Performed By: #### 1 0070, 47720 #### [facility] [address] Vital Signs Date Time Vital Sign Value Performing Clinician Alok bolivar 06-18-2023 09:43-0500 Diastolic blood pressure 101 mm[Hg] Harleen Ly DO Work Phone: [facility] 06-18-2023 09:43-0500 Respiratory rate 16 /min Harleen Ly DO Work Phone: [facility] 06-18-2023 09:43-0500 SaO2% (BldA) [Mass fraction] 97 % Harleen Ly DO Work Phone: [facility] 06-18-2023 09:43-0500 Systolic blood pressure 161 mm[Hg] Harleen Ly DO Work Phone: [facility] 06-18-2023 09:23-0500 Body temperature 97 [degF] Harleen Ly DO Work Phone: [facility] 06-18-2023 07:49-0500 Body height 172.7 cm Harleen Ly DO Work Phone: [facility] 06-18-2023 07:49-0500 Body weight 144.7 kg Harleen Ly DO Work Phone: [facility] 04-29-2023 11:43-0500 Body weight 144.7 kg Harleen Ly DO Work Phone: [facility] 04-29-2023 11:43-0500 Diastolic blood pressure 80 mm[Hg] Harleen Ly DO Work Phone: [facility] 04-29-2023 11:43-0500 Heart rate 78 /min Harleen Ly DO Work Phone: [facility] 04-29-2023 11:43-0500 Systolic blood pressure 140 mm[Hg] Harleen Ly DO Work Phone: [facility] 04-03-2023 07:55-0500 Body height 172.72 cm Kaila Goldstein Work Phone: [facility] 04-03-2023 07:55-0500 Body weight 143.33 kg Kaila Angelita Work Phone: [facility] Encounters Encounter Date Encounter Type Care Provider Facility Start: 06-24-2023 Orders Only Kaila Goldstein ANTIQUE JEWELRY REPAIRER Work Phone: [facility] Comment on above: Multiple lung nodule s (Primary Dx) Start: 06-23-2023 Telephone encounter Harleen Jones DO Work Phone: Gastroenterology Comment on above: Results Start: 06-18-2023 ambulatory YANN ROHINIROSITA [facility] Start: 06-18-2023 End: 06-18-2023 Subsequent hospital visit by physician Harleen Jones DO Work Phone: Procedures Comment on above: History of colon marcelo yps [Z86.010] Start: 06-12-2023 End: 06-12-2023 ambulatory [facility] Start: 05-04-2023 End: 05-04-2023 ambulatory KAILA GOLDSTEIN Not Available Start: 04-29-2023 End: 04-29-2023 ambulatory HARLEEN LY Facility:[facility] Start: 04-29-2023 End: 04-29-2023 Patient encounter procedure Harleen Ly DO Work Phone: Gastroenterology Comment on above: History of colon marcelo yps (Primary Dx) Start: 04-21-2023 Telephone encounter Carmen Jacob MD Work Phone: Gastroenterology Comment on above: Appointment Start: 04-03-2023 End: 04-03-2023 ambulatory Kaila Goldstein Facility:[facility] Start: 04-03-2023 End: 04-03-2023 ambulatory Kaila Goldstein Work Phone: [facility] Work Phone: Start: 04-03-2023 End: 04-03-2023 Patient encounter procedure Kailaamando Goldstein Work Phone: [facility] Work Phone: Start: 03-13-2023 ambulatory Facility:[facility] Start: 12-03-2022 End: 12-03-2022 ambulatory [facility] Start: 09-15-2022 End: 09-16-2022 ambulatory MECHANICAL ENGINEERING TEACHER KAILA AICHHOLZ Facility: Start: 05-01-2022 End: 05-01-2022 ambulatory MECHANICAL ENGINEERING TEACHER KAILA AICHHOLZ Facility:[facility] Start: 03-13-2022 End: 03-14-2022 ambulatory MECHANICAL ENGINEERING TEACHER KAILA AICHHOLZ Facility:[facility] Start: 11-02-2020 End: 11-03-2020 ambulatory KAILA AICHHOLZ Facility:[facility] Start: 07-26-2020 End: 07-27-2020 ambulatory KAIAL JOSHUAHOLZ Facility:[facility] Start: 04-16-2020 End: 04-23-2020 Evaluation and management of inpatient LULU DEE Facility:[facility] Start: 03-29-2020 End: 04-01-2020 Evaluation and management of inpatient YINA MAKI Facility:[facility] Procedures Date Procedure Procedure Detail Performing Clinician Start: 06-18-2023 Colonoscopy flx dx w /collj spec when pfrmd Harleen Ly DO Work Phone: Start: 06-18-2023 Gluc bld gluc mntr d ev cleared fda spec home use Yann Kuhn MD Work Phone: Start: 06-18-2023 Colonoscopy Harleen Ly DO Work Phone: Start: 04-03-2023 Positron emission tomography with computed tomography Kaila Torstenz Work Phone: Start: 03-18-2023 Mammography Kaila Marlee jin ANTIQUE JEWELRY REPAIRER Work Phone: Start: 11-02-2020 Colonoscopy w/biopsy single/multiple YASEEN ALASTAL Start: 11-02-2020 Colonoscopy Harleen Renae DO Work Phone: Start: 04-23-2020 EXCISION OF RECTUM, ENDO, DIAGN YASEEN ALASTAL Start: 04-23-2020 EXCISION OF SIGMOID COLON, ENDO, DIAGN YASEEN ALASTAL Start: 03-30-2020 INTRODUCTION OF OTHE R GAS INTO RESP TRACT, VIA OPENING YINA MAKI Start: 03-30-2020 FLUOROSCOPY OF MULTI PLE CORONARY ARTERIES USING OTH CONTRAST [place] Plan of Treatment Date Care Activity Detail Author Start: 06-18-2026 Screening for malign ant neoplasm of colon [facility] Start: 08-16-2024 Glaucoma screening Diabetes: R etinopathy Screening [facility] Start: 06-18-2024 Screening for malign ant neoplasm of colon [facility] Start: 03-18-2024 Screening for malign ant neoplasm of breast Mammogram [facility] Start: 12-10-2023 Medicare Annual Well ness (AWV) Medicare Annual Wellness (AWV) [facility] Start: 11-15-2023 Influenza vaccination Influenza Vacc ine (#1) [facility] Comment on above: Postponed from 01/16 (Patient Refused) Start: 09-16-2023 Urine screening for protein Diabetes: Urine Protein Screening [facility] Start: 08-17-2023 Pneumococcal Vaccine : 65+ Years (1 - PCV) Pneumococcal Vaccine: 65+ Years (1 - PCV) [facility] Comment on above: Postponed from 09/29 (Other Medical Reasons) Start: 08-04-2023 End: 08-04-2023 Patient encounter procedure 08/04/2023 8:40 AM EDT Office Visit [facility] [address] [place] [id number] Kaila Goldstein NP [address] [place] [id number] [facility] Start: 06-24-2023 End: 06-24-2024 CT Chest WO contrast CT chest wo IV contrast Imaging Routine Multiple lung nodules Expected: 06/24/2023 (Approximate), Expires: 06/24/2024 [facility] Work Phone: Comment on above: Expected: 06/24/2023 (Approximate), Expires: 06/24/2024 Start: 05-18-2023 Advance Directive Discussion Advance Directive Discussion [facility] Start: 05-18-2023 Depression Assessment Depression Ass essment [facility] Start: 01-16-2023 Covid-19 Vaccine () Covid-19 Vaccine () [facility] Start: 01-16-2023 Influenza vaccination Influenza Vacc ine (#1) [facility] Start: 05-18-2022 Advance Directive Discussion Advance Directive Discussion [facility] Start: 05-18-2022 Depression Assessment Depression Ass essment [facility] Start: 11-02-2021 Screening for malign ant neoplasm of colon [facility] Start: 2021 Bone Density Screening Bone Density Screening [facility] Start: 2021 Pneumococcal Vaccine : 65+ (1 - PCV) Pneumococcal Vaccine: 65+ (1 - PCV) [facility] Start: 2021 Screening for osteoporosis Bone Density Screening [facility] Start: 2016 RSV Vaccine (1 - 1-d ose 60+ series) RSV Vaccine (1 - 1-dose 60+ series) [facility] Start: 2006 Shingrix Vaccine (1 of 2) Shingrix Vaccine (1 of 2) [facility] Start: 2001 Cologuard (FIT-DNA) Cologuard (FIT-D NA) [facility] Start: 2001 Colonoscopy Colonoscopy [facility] Start: 2001 Colorectal Cancer Screening Colorectal Cancer Screening [facility] Start: [address] Colonography [facility] Start: 2001 Diabetes Screening Diabetes Screenin g [facility] Start: 2001 Fecal Occult Blood Fecal Occult Bloo d [facility] Start: 2001 Lipid 1996 panel - S norma or Plasma Lipid Screening [facility] Start: 2001 Lipid panel Lipid Screening [facility] Start: 2001 Screening for malign ant neoplasm of colon [facility] Start: 2001 Sigmoidoscopy Sigmoidoscopy [facility] Start: 1996 Mammography Mammogram Screening [facility] Start: 1996 Screening for malign ant neoplasm of breast Mammogram Screening [facility] Start: 09-30-1975 Urine microalbumin profile DTaP,Tdap,Td Vaccine (1 - Tdap) [facility] Start: 1974 Annual PCP Team Bill Of Materials Clerk michelle Disease Visit Annual PCP Team Chronic Disease Visit [facility] Start: 1974 BP Controlled (<130/80) BP Controlle d (<130/80) [facility] Start: 1974 Hepatitis C Screening [facility] Start: 1974 Hepatitis C screening [facility] Start: 1962 Pneumococcal Vaccine : 65+ (1 of 2 - PCV) Pneumococcal Vaccine: 65+ (1 of 2 - PCV) [facility] Start: 04-01-1957 Covid-19 Vaccine (#1) Covid-19 Vacci ne (#1) [facility] Start: 1956 Hemoglobin A1c measurement Diabetes: Hemoglobin A1C [facility] Start: 1956 Screening for malign ant neoplasm of colon [facility] End: 04-29-2024 Screening colonoscopy COLONOSCOPY SCREENING Endoscopy Routine History of colon polyps 1 Occurrences starting 04/29/2023 until 04/29/2024 [facility] Work Phone: Comment on above: 1 Occurrences starti 04/29/2023 until 04/29/2024 SURGICAL PATHOLOGY [facility] Work Phone: Comment on above: Release Upon Neriin g for 1 Occurrences starting 06/18/2023, 1 completed [facility] Immunizations Immunization Date Immunization Notes Care Provider Yonas beltran 11-10-2022 zoster vaccine recombinant Kaila Aichreinaz ANTIQUE JEWELRY REPAIRER Work Phone: [facility] 05-21-2022 zoster vaccine recombinant Kaila Aichholz ANTIQUE JEWELRY REPAIRER Work Phone: [facility] Payers Date Payer Category Payer Self-pay 2022 Medicare DEVOTED MEDICARE [facility] [id number] 2022-Present [phone] [address] PHANI SCHROEDER [id number] [facility] [id number] 2022 Unknown [employer]OTED HE[employer] D [employer] [id number] 2022-Present [address] PHANI CSHROEDER [id number] [id number] 2020 Unknown [id number] 1959 Medicare [id number] 1956 Unknown [id number] 1956 Unknown [id number] 1956 Unknown [id number] 1956 Unknown [id number] 1956 Unknown [id number] 1956 Unknown [id number] 1956 Unknown [id number] 1956 Unknown [id number] Unknown [id number] Unknown [id number] Social History Date Type Detail [facility] Work Phone: Start: 1955 Sex Assigned At Female F [facility] consumption unknown [facility] Start: 1955 Sex Assigned At Not on file [facility] Start: 04-29-2023 End: 05-04-2023 Gender identity Not on file [facility] Start: 04-29-2023 End: 05-03-2023 Tobacco smoking status NHIS Ex-smoker [facility] Start: 05-18-1975 End: 05-18-2007 History of tobacco use Current smoker [facility] Start: 05-18-1975 End: 05-18-2007 History of tobacco use Cigarette Smoker [facility] Start: 04-29-2023 End: 05-04-2023 Cigarettes smoked current (pack per day) - Reported 1.5 [facility] Start: 04-29-2023 Tobacco use and exposure Smokeless tobacco non-user [facility] National Score (1-10 0), lower number is lower risk 91 [facility] Start: 05-04-2023 Alcohol intake Ex-drinker (finding) [facility] Start: 05-03-2023 Tobacco Comment Last smoked - ye ars [facility] Start: 05-03-2023 Alcohol Comment caffeine:soda [facility] Procedure Code Equipment Code Equipment Origin al Text Equipment Identifier Dates Use as instructed [id number] Start: 05-22-2023 End: 05-21-2024 1 each 3 (three) times a day as needed (3 times daily prn) [id number] Start: 05-22-2023 Clinical Notes 04-01-2020 to 06-24-2023 Kaila Goldstein NP - 06/24/2023 10:52 AM ESTTelephone Encounter - Windy Dickson Ma - 06/23/2023 2:34 PM ESTTelephone Encounter - Sara Do RN - 06/23/2023 10:21 AM ESTPatient Instructions Note Date & Type Note Facility 06-24-2023 History of Presen t illness Narrative Due for fu CT chest 3 month for lung nodules documented in this encounter [facility] 06-23-2023 Miscellaneous Notes Recall entered Left voice message regarding results and advised to call office with any further questions. Please enter 3 year recall colonoscopy. Thank you Sara Do RN ----- Message from Harleen Jones DO sent at 06/22/2023 1:12 PM EST ----- Please review path from colonoscopy with pt which reveals multiple SSP and TA removed, a couple hyperplastic polyps and focal inflammation in the rectum rather than true polyp-not concerning. Repeat in 3 yrs. Thanks cl documented in this encounter [facility] 06-18-2023 History and physical note HISTORY AND PHYSICAL Hortensai Bates, 67 year old female Current history [...] Harleen Jones DO documented in this encounter [facility] 06-12-2023 Note Continue statin- lip itor 10 mg daily [facility] 06-12-2023 Note Hypertension is stab le b/p 136/83 continue losartan, aldactone, and toprl [facility] 06-12-2023 Note RCRI 0???points Class I [...] carefully and prevent any major fluid shifts. [facility] 06-12-2023 Note UTP CARDIOLOGY PROGR ESS [...] are negative Previous HPI per S Witherall ANTIQUE JEWELRY REPAIRER HPI Hortensia Bates is a 66 y.o. [...] normal LA f (more content not included)... [facility] 06-12-2023 Note Patient here for 6 m o follow up persistent afib, hypertension, and hyperlipidemia. She denies chest pain, SOB, lightheadedness/syncope, palpitations, and bleeding on Eliquis. She is scheduled for colonoscopy on 06/18 with [facility] and needs permission to hold Eliquis. Review of Systems Cardiovascular: Positive for leg swelling (minimal, resolves by morning). All other systems reviewed and are negative. [facility] 06-12-2023 Note [id number] VASc= 4 Continue anticoagulation with eliquis- will need to hold 2-3 days for colonoscopy Monitor for s/s of bleeding Continue toprol, rate controlled and remains in NSR [facility] 04-29-2023 Note HNO ID: [id number] Author: Harleen Jones DO Service: ? Author Type: Physician Type: Progress Notes Filed: 04/29/2023 12:49 PM Note Text: Chief Compliant: Consultation requested by Dr. Kaila Goldstein, LEAD MILITARY ANALYST.MECHANICAL ENGINEERING TEACHER for an opinion regarding hx of colon [...] other GI malignancy. No records available in [employer] or [employer] regarding this office visit. ALLERGIES Allergen Reactions [...] from her prior colonoscopy -schedule colonoscopy at [place]. 2 day bowel p (more content not included)... [facility] 04-29-2023 History of Presen t illness Narrative Chief Compliant: Consultation requested by Dr. Kaila Goldstein, LEAD MILITARY ANALYST.MECHANICAL ENGINEERING TEACHER for an opinion regarding hx of colon [...] other GI malignancy. No records available in [employer] or [employer] regarding this office visit. ALLERGIES Allergen Reactions [...] from her prior colonoscopy -schedule colonoscopy at [place]. 2 day bowel prep. Procedure/risks were discussed with the patient in great detail including but not limited to the risk of sedation, bleeding, perforation, infection, and missed lesions. Patient agreed to proceed. -fiber rich diet Harleen Jones DO Follow Up: No follow-ups on file. documented in this encounter [facility] 04-29-2023 Instructions Harleen Jones DO - [...] If you do not have a responsible airport driver (family member or friend) with you to take you home, your exam cannot be done with sedation and will be cancelled. Please bring a list of all of your current medications, including any Untq-hdi-Fiejmip medications with you. Medications If you take [...] exam. 2 04/2019 documented in this encounter [facility] 04-21-2023 Miscellaneous Notes Pt's VM is full and there is no active MC Cannot inform pt 05/28 appt w/Kristel was canceled If pt calls back an attempt was made to contact her Frandy Dumont 04/21/23 documented in this encounter [facility] 12-03-2022 Note Cardiology Clinic No te [...] Left [facility] appen (more content not included)... [facility] 04-23-2020 Note MR#: [id number] I [facility] Pt. Name: Hortensia Bates Admitted: 04/15/2020 [...] to the patient being on anticoagulation and txiybpnj-va-yrtaui sigmoid diverticulosis. Subsequently, pathology report came back [...] snare measured 3 mm and 5 mm. Aqicnkxz-mn-fadwbx sigmoid diverticulosis. Again, the patient was admitted [...] Negro MD Date Trans: 04/23/2020 02:52 P/mmo [id number] [facility] 04-01-2020 Note MR#: [id number] [facility] Pt. Name: Hortensia Bates Admitted: 03/29/2020 [...] P/Kelsey Gonzalez MD Date Trans: 04/01/2020 12:25 P/lazarus [id number] [facility] Evaluation note No assessment inform ation available [facility] Work Phone: Evaluation note Diagnosis History of colon polyps- Primary Personal history of colonic polyps [facility] Diagnosis Chronic atrial fibrillation (HCC)- Primary Atrial fibrillation History of colon polyps Personal history of colonic polyps Primary hypertension Unspecified essential hypertension Class 3 obesity (HCC) [facility] Diagnosis Multiple lung nodules- Primary Other diseases of lung, not elsewhere classified documented [facility] this [facility] Outpatient Procedure (Routine) - Pending Review Specialty Diagnoses / Procedures Referred By Masoud t Referred To Contact [facility] Diagnoses History of colon polyps Procedures COLONOSCOPY SCREENING COLONOSCOPY FLX DX W/COLLJ [place] [address] [place] [address] [facility] [address] [place] [address] Referral ID Status Reason Start Date Expiration Date Visits Requested Visits Authorized [id number] Pending Review Auto-Generat ed Referral 3 04/29/2024 1 1 [facility] for referral (narrative)* Outpatient Procedure (Routine) - Closed Specialty Diagnoses / Procedures Referred By Chadac t Referred To Contact [facility] Diagnoses History of colon polyps Procedures COLONOSCOPY SCREENING COLONOSCOPY FLX DX W/COLLJ SPEC WHEN PFRMD Renae DO Harleen [address] [place] [address] [address] Referral ID Status Reason Start Date Expiration Date V isits Requested Visits Authorized [id number] Closed Auto-Generate d Referral 06/05/2023 05/17/2024 1 1 [facility] for visit Narrative* Outpatient Procedure (Routine) - Closed Specialty Diagnoses / Procedures Referred By Contac t Referred To Contact [facility] Diagnoses History of colon polyps Procedures COLONOSCOPY SCREENING COLONOSCOPY FLX DX W/COLLJ SPEC WHEN PFRMD Renae [place]leenDO [address] [place] [address] [address] Referral ID Status Reason Start Date Expiration Date V isits Requested Visits Authorized [id number] Closed Auto-Generate d Referral 06/05/2023 05/17/2024 1 1 [facility] Summary Purpose Family History No Family History Records FoundNo Family History Records FoundNo Family History Records FoundNo Family History Records FoundNo Family History Records FoundNo Family History Records FoundNo Family History Records FoundNo Family History Records Found Advance Directives Advance Directive Response Recorded Date/ Time Advance Directives No March 9:54am Chief Complaint and Reason for Visit Chief Complaint r91.8 Reason for Referral Specialty Diagnoses / Procedures Referred By Contkeyur t Referred To Contact Diagnoses Multiple lung nodules Procedures CT chest wo IV contrast Kaila Goldstein, ANA [address] [place] [address] Referral ID Status Reason Start Date Expiration Date V isits Requested Visits Authorized [id number] Authorized 06/24/2023 12/21/2023 1 1 Additional Source Comments INFORMATION SOURCE (unrecogn ized section and content) DATE CREATED AUTHOR 11/07/[address] [facility] DATE CREATED AUTHOR AUTHOR'S ORGANIZ ATION 09/19/2022 [facility] DATE CREATED AUTHOR AUTHOR'S ORGANIZ ATION 03/15/2023 [facility] DATE CREATED AUTHOR AUTHOR'S ORGANIZ ATION 04/11/2023 [facility] DATE CREATED AUTHOR AUTHOR'S ORGANIZ ATION 05/04/[address] [facility] dical Specialists [facility] DATE CREATED AUTHOR AUTHOR'S ORGANIZ ATION 06/13/2023 [facility] DATE CREATED AUTHOR AUTHOR'S ORGANIZ ATION 06/22/2023 [facility] DATE CREATED AUTHOR AUTHOR'S ORGANIZ ATION 06/24/2023 [facility] Care Teams (unrecognized sec tion and content) Team Status: Active Member Role Status Dates Kaila Goldstein Primary Care Provider Active Team Status: Inactive Member Role Status Dates Kaila Goldstein Primary Care Provider, Attending Provi abhishek Active Supervisor Word Processing Relationship Specialty Start Date End Date Kaila Goldstein CNP [address] [place] [address] PCP - General Family Medicine 03/24/23 Supervisor Word Processing Relationship Specialty Start Date End Date Kaila Goldstein CNP [address] [place] [address] PCP - General Family Medicine 03/24/23 Supervisor Word Processing Relationship Specialty Start Date End Date Kaila Goldstein CNP [address] [place] [address] PCP - General Family Medicine 03/24/23 Supervisor Word Processing Relationship Specialty Start Date End Date Kaila Goldstein CNP [address] [place] [address] PCP - General Family Medicine 03/24/23 Supervisor Word Processing Relationship Specialty Start Date End Date Quinn Antunez MD PCP - General Family Medicine 12/08/22 Quinn Antunez MD [address] [place] [address] PCP - Devoted 02/15/23 Kaila Goldstein NP [address] [place] [address] Referring Physician Nurse Practitioner 12/08/22 Goals (unrecognized section and content) Goals may be documented in a n alternate section Source Comments (unrecognize d section and content) In the event this informatio n is protected by the Federal Confidentiality of Alcohol and Drug Abuse Patient Records regulations: The Federal rules restrict any use of the information to criminally investigate or prosecute any alcohol or drug abuse patient.[facility] the event this information is protected by the Federal Confidentiality of Alcohol and Drug Abuse Patient Records regulations: The Federal rules restrict any use of the information to criminally investigate or prosecute any alcohol or drug abuse patient.[facility] the event this information is protected by the Federal Confidentiality of Alcohol and Drug Abuse Patient Records regulations: The Federal rules restrict any use of the information to criminally investigate or prosecute any alcohol or drug abuse patient.[facility] the event this information is protected by the Federal Confidentiality of Alcohol and Drug Abuse Patient Records regulations: The Federal rules restrict any use of the information to criminally investigate or prosecute any alcohol or drug abuse patient.[facility] Reason for Visit (unrecogniz ed section and content) Reason Comments Appointment Reason Comments New Patient Colonoscopy with his tory of polpys Reason Comments Results Inactive Administered Medications - up to 3 [...] BE BASED ON THE PRIMARY CLINICAL RECORDS. [facility]. provides no warranty or guarantee of the accuracy or [phone] in [phone] [id number]
== END 2023-06-30 09:58 | disposition home or self-care (01) ==
LOC: CT 09:57
PROVIDERS: PCP Nurse Practitioner; Visit Provider Nurse Practitioner
DX: R91.8 Other nonspecific abnormal finding of lung field (principal)
CPT/HCPCS: 71250

== ENCOUNTER 2023-08-19 07:43 | Outpatient (OUT) | payer OTHER, SELFPAY ==
--- OUTSIDE RECORDS SUMMARY | 2023-08-19 07:49 | XMS_ITS | CCD ---
Author Organization [facility] Care Team Providers Care Co Founder & Ceo Name Role Phone AICHHOLZ, KAILA Referring Unavailable AICHHOLZ, KAILA Primary Care Unavailable DC Procedure Practitioner Unavailab le ALASTAL, YASEEN Admitting Unavailable ALASTAL, YASEEN Attending Unavailable ALASTAL, YASEEN Surgeon Unavailable AICHHOLZ, KAILA Primary Care Unavailable AICHHOLZ, KAILA Referring Unavailable SULEIMAN GRULLON Admitting Unavailable SULEIMAN GRULLON Attending Unavailable SHANTHI, SARMED Admitting Unavailable SHANTHI, SARMED Attending Unavailable CHAY ARANGO Surgeon Unavailable AICHHOLZ, KAILA Primary Care Unavailable DC Procedure Practitioner Unavailab JUAN Souza Referring Unavailable SHANTHI, SARMED Surgeon Unavailable DC Procedure Practitioner Unavailab LULU Irizarry Referring Unavailable SHANTHI, SARMED Admitting Unavailable AICHHOLZ, KAILA Primary Care Unavailable MISAEL NEGRO Attending Unavailable DC Procedure Practitioner Unavailab vi CROCKERSTAL, YASEEN Surgeon Unavailable AICHHOLZ, SKIVING MACHINE OPERATOR KAILA Attending Unavailable AICHHOLZ, SKIVING MACHINE OPERATOR KAILA Consulting Unavailable AICHHOLZ, SKIVING MACHINE OPERATOR KAILA Primary Care Unavailable AICHHOLZ, SKIVING MACHINE OPERATOR KAILA Admitting Unavailable AICHHOLZ, SKIVING MACHINE OPERATOR KAILA Attending Unavailable AICHHOLZ, SKIVING MACHINE OPERATOR KAILA Consulting Unavailable AICHHOLZ, SKIVING MACHINE OPERATOR KAILA Primary Care Unavailable AICHHOLZ, SKIVING MACHINE OPERATOR KAILA Admitting Unavailable AICHHOLZ, SKIVING MACHINE OPERATOR KAILA Attending Unavailable AICHHOLZ, SKIVING MACHINE OPERATOR KAILA Consulting Unavailable AICHHOLZ, SKIVING MACHINE OPERATOR KAILA Primary Care Unavailable AICHHOLZ, SKIVING MACHINE OPERATOR KAILA Admitting Unavailable Angelita, Kaila J Primary Care Provider Kaila Goldstein Attending Provider [phone] Kaila Goldstein Attending Unavailable Aichholz, Kaila J Primary Care Unavailable Kaila Goldstein Admitting Unavailable Kaila Goldstein CNP Primary Care Provider KAILA GOLDSTEIN Attending Unavailable EDWINA PRETTY Attending Unavailable UMAIR ENRIQUE Attending Unavailable YANN KUHN Attending Unavailable KAILA GOLDSTEIN Primary Care Unavailable HARLEEN JONES Referring Unavailable HARLEEN JONES Attending Unavailable KAILA GOLDSTEIN Primary Care Unavailable Quinn Antunez MD Primary Care Provider [phone] Angelita CORPORATE DIRECTOR TALENT ASSESSMENT, Kaila Unavailable Quinn Antunez MD Unavailable Allergies Allergy Classification Reported Allergen(s) Allergy Type Date of Onset Reaction(s) Facility Unclassified (4 sources) Thiazides; Translations: [THIAZIDES] Drug allergy (disorder) 01-05-20 13 [facility] Repository (4 sources) Spironolactone; Translations: [SPIRONOLACTONE] Drug Allergy 04-29-20 23 [facility] (3 sources) Thiazides Drug Allergy 05-06-20 22 [facility] (1 source) fexofenadine Drug Allergy 05-06-20 22 [facility] (1 source) hydroCHLOROthiazide Drug Allergy 05-04-20 23 [facility] (1 source) Spironolactone Drug Allergy 05-01-20 23 [facility] (1 source) Thiazide-Type Diuretics Drug Allergy 05-04-20 23 [facility] Medications Current Medications Medication Drug Class(es) Dates [...] Comment on above: Centrum polyethylene glycol 3350 407105 mg / potassium chloride 2970 mg / sodium bicarbonate 6740 mg / sodium chloride 5860 mg / sodium sulfate 51907 mg powder for oral solution (1 source) Osmotic Laxative Start: 04-29-2023 End: 04-29-2023 peg 3350-Electrolytes (GOLYTELY) 236-22.74-6.74 -5.86 gram suspension Take 4,000 mL by mouth one time only for 1 dose. 1 Each 0 04/29/2023 04/29/2023 Comment on above: Take 4,000 mL by madhu one time only for 1 dose. Problems [...] Test Name Value Interpretation Reference Range Facility [facility] ([id number]) 1955 F Date Time Provider Department 06/23/23 [...] Status:Closed by WINDY DICKSON MA on 06/23/23 [facility] ANES POSTPROC EVALon 024 ANES POSTPROC EVAL HNO ID: [id number] Author: YANN KUHN MD Service: Anesthesiology Author Type: Physician Type: Anesthesia Postprocedure Evaluation Filed: 06/18/2023 09:58 Note Text: POST ANESTHESIA EVALUATION NOTE : 1955 Procedure Summary Date: 06/18/23 Room / Location: Procedures Anesthesia Start: 848 Anesthesia Stop: 918 Procedure: COLONOSCOPY SCREENING Diagnosis: History of colon polyps (High risk colon cancer surveillance: Personal history of colonic polyps) Scheduled Providers: Harleen Jones DO; Leona Rendon APRN.VOLUNTEER SERVICES ASSISTANT; Yann Kuhn MD; Abby Peoples RN Responsible Provider: Yann Kuhn MD Anesthesia Type: MAC ASA Status: 3 Anesthesia Type: MAC Last Vitals Vitals Value Taken Time BP 161/101 06/18/2343 Temp 36.1 ?C (97 ?F) 06/18/23922 HR SpO2 77 06/18/23 0943 Resp 16 06/18/23942 SpO2 94 % 06/18/23942 Vitals shown include unfiled device data. Post [...] June 18, 2023 TIME: 9:57 AM CSN: [id number] [facility] ANES PRE-OPon 06-18-2023 ANES PRE-OP HNO ID: [id number] Author: YANN KUHN MD Service: Anesthesiology Author Type: Physician Type: Anesthesia Preprocedure Evaluation Filed: 06/18/2023 08:20 Note Text: ANESTHESIOLOGY DAY OF SURGERY NOTE : 1955 Procedure Information Date/Time: 06/18/23 0900 Scheduled providers: Harleen Jones DO; Leona Rendon APRN.VOLUNTEER SERVICES ASSISTANT; Yann Kuhn MD; Abby Peoples RN Procedure: [...] June 18, 2023 TIME: 8:19 AM CSN: [id number] Normal [facility] COLONOSCOPY SCREENINGon [facility] Colonoscopyon 06-18-2023 Colonoscopy [facility] Gastrointestinal Endoscopy Patient Name: Hortensia Bates Procedure Date: 06/18/2023 8:48 AM Date of : 1955 Admit Type: Outpatient Age: 67 Room: [place] [address] Gender: Female Note Status: Finalized Attending MD: Harleen Jones DO, [id number] Procedure: Colonoscopy Indications: High risk colon cancer [...] referring physician. Procedure Code(s): --- Professional --- 77283, Colonoscopy, flexible; with biopsy, single or multiple [...] or abscess without bleeding CPT copyright 2020 [employer]. All rights reserved. The codes documented in this report are preliminary and upon knitter mechanic review may be revised to meet current compliance requirements. Attending Participation: I personally performed the entire procedure. Scope In: 8:53:53 AM Scope Out: 9:15:29 AM DO Harleen Hurd DO 06/18/2023 9:19:27 AM This report has been signed electronically by Harleen Jones DO Number of Addenda: 0 Note Initiated On: 06/18/2023 8:48 AM Estimated Blood Loss: Estimated blood loss was minimal. Normal [facility] GLUCOSE, BLOOD (POC)on 06-18 Glucose [Mass/Vol] 107 mg/dL Abnormal 74 - 99 mg/dL [facility] HISTORY PHYSICALon HISTORY PHYSICAL HNO ID: [id number] Author: HARLEEN JONES DO Service: Gastroenterology Author [...] MAC Additional Comments: None Harleen Jones DO [facility] SURGICAL PATHOLOGYon 024 CASE REPORT [facility] Comment on above: Order Comment: Speci men Type: TISSUE SPECIMEN Ordering Facility: [facility] Address: [address] [place] [address] [place] [address] Result Comment: Surg [facility] Pathology Report Case: [id number] Authorizing Provider: Harleen Jones DO Collected: 06/18/2023 08:59 AM Ordering Location: Procedures Received: 06/18/2023 09:31 AM Pathologist: Thi Delvalle MD, PhD Specimens: A) - CECUM POLYP B) - ASCENDING COLON POLYP C) - TRANSVERSE COLON POLYP D) - SIGMOID COLON POLYP E) - RECTAL BIOPSY Performed By: #### S #### [facility] CLIA [id number] [address] [place] [address] FINAL DIAGNOSIS Normal [facility] ital Comment on above: Order Comment: Speci men Type: TISSUE SPECIMEN Ordering Facility: [facility] Address: [address] [place] [address] Result Comment: A. C olon, cecum, polyp, [...] level examined. Performed By: #### S #### [facility] CLIA [id number] [address] [place] [address] FINAL PERFORMING LAB Normal [facility] Comment on above: Order Comment: Speci men Type: TISSUE SPECIMEN Ordering Facility: [facility] Address: [address] [place] [address] Result Comment: Diag nostic interpretation performed at [facility], [address] [place] [address] CLIA# [id number] [employer] Buffer: José Miguel White M.D. Performed By: #### S #### [facility] CLIA [id number] [address] [place] [address] GROSS DESCRIPTION A. CECUM POLYP Normal [facility] Comment on above: Order Comment: Speci men Type: TISSUE SPECIMEN Ordering Facility: [facility] Address: [address] [place] [address] Result Comment: Rece ived in formalin is [...] 2023 3:40 PM Gross examination performed at [facility], [address] [place] [address] Performed By: #### S #### [facility] CLIA [id number] [address] [place] [address] [id number] [id number] [facility] Office Visiton 06-12-2023 Follow-up visit [id number] Hortensia Bates 1955 F Date Provider Department Center 06/12/2023 UMAIR SAAVEDRA Family History Problem Relation Age of Onset No Known Problems Mother No Known Problems Father Family Status - Relation Status Age at Mother Father Level of Service:20238 DC OFFICE/OUTPATIENT ESTABLISHED MOD MDM 30 MIN Normal [facility] Wes 06-04-2023 [place] Telephone ([facility]ITRA) HORTENSIA BATES ([id number]) 1955 F Date Time Provider Department 06/04/23 HARLEEN JONES During your visit today, we recorded the following information about you: Naila Fleming OCCA 06/04/2023 11:19 AM Signed Contacted and spoke with patient regarding prep instructions for upcoming procedure. Answered all patient's questions. Patient demonstrated understanding and was instructed to call [phone] and ask for nurse triage line for [...] 20 mins and then resume. Please call [phone] and ask for Nurse Triage with any [...] and then resume. THANK YOU! Please call [phone] and ask for nurse triage line if you have any questions [facility] Jared Mcneil - 2nd floor (Surgery Center) [address] [facility] [place] [address] Allergies As of Date: 06/04/2023 Noted Allergy Reaction SPIRONOLACTONE 04/29/2023 4 - Hives THIAZIDES 05/06/2022 4 - Hives Date Reviewed: Never Reviewed Reason for Visit: Pre-Op Teaching [134] Prescriptions as of 06/04/2023 - apixaban (ELIQUIS) 5 mg tab(s) Take 5 mg by mouth two times a day. - levothyroxine (SYNTHROID) 100 mcg tablet Levothyroxine Sodium - metFORMIN ER (more content not included)... Normal [facility] CNOVon 04-29-2023 CNOV Office Visit (GASTAV ) HORTENSIA BATES ([id number]) 1955 F Date Time Provider Department 04/29/23 [...] If you do not have a responsible non cdl driver (family member or friend) with you to take you home, your exam cannot be done with sedation and will be cancelled. Please bring a list of all of your current medications, including any Iowq-hvo-Lkudyhu medications with you. Medications If you take [...] Compliant: Consultation requested by Dr. Kaila Goldstein, SIRI[facility] for an opinion regarding hx of colon polyps. My final recommendations will be communicated back to the requesting physician by way of shared Medical record or letter to requesting physician via US mail. HPI: Hortensia Bates is a 67 year old female with PMH significant for hypo (more content not included)... Normal [facility] 04-21-2023 [place] Telephone ([facility]) HORTENSIA BATES ([id number]) 1955 F Date Time Provider Department 04/21/23 CARMEN JACOB [facility] During your visit today, we recorded the following information about you: Elly Dumont 04/21/2023 3:02 PM Signed Pt's VM is full and there is no active MC Cannot inform pt 05/28 appt w/Kristel was canceled If pt calls back an attempt was made to contact her Frandy Preeti 04/21/23 Allergies As of Date: 04/21/2023 (Not on File) Date Reviewed: Never Reviewed Reason for Visit: Appointment [186] Problem List As Of Date: 04/21/2023 (None) Encounter Status:Closed by ELLY DUMONT on 04/21/23 Normal [facility] Glucose Glucometer (BldC) [M ass/Vol]Ordered By: Kaila Goldstein on 04-03-2023 Glucose [Mass/Vol] 118 mg/dL [facility] Comment on above: Random Glucose Refer ence Range is dependent on time and content of last meal. Glucose of more than 200 mg/dL in a nonstressed, ambulatory subject supports the diagnosis of Diabetes Mellitus. Glucose Poct Glucometerson 1 06-03-2022 Glucose [Mass/Vol] 118 mg/dL Normal [facility] Comment on above: Result Comment: [place] [facility] Glucose Reference Range is dependent on time and content of last meal. Glucose of more than 200 mg/dL in a nonstressed, ambulatory subject supports the diagnosis of Diabetes Mellitus. PERFORMED BY: [place] [address] PATHOLOGIST INVESTIGATION OFFICER DARNELL WESLEY M.D. Performed By: #### G GISEL #### Point of Care testing , PET tumor init tx strat sb-m ton 04-03-2023 PET tumor init tx strat sb-mt [facility] [place] [address] Nuclear Medicine Report Signed Patient: Hortensia Bates MR#: [id number] : 1955 Acct:[id number] Age/Sex: 67 / F ADM Date: 04/03/23 Loc: Room: Type: [facility] Attending Dr: Kaila Goldstein Copies to: Simone Reid Jr, RADHA Zuniga Ordering Provider: DINA BlantonC Date of Service: 04/03/23 PET/PET tumor init [...] recommended. Impression dictated by: Simone Reid Jr., Lydia04/03/2023 1:18 PM Dictation Location: [place] [address] Transcribed By: [facility] 04/03/23 1318 Dictated By: Simone Reid Jr, DO 04/03/23 1202 Signed By: 04/03/23 1318 [facility] Physician Referralon 03-13- 023 Physician Referral [id number]. [id number] Normal [facility] Office Visiton 12-03-2022 Follow-up visit [id number] Hortensia Bates 1955 F Date Provider Department Center 12/03/2022 [id number] PRETTY CARD [facility] Family History Problem Relation Age of Onset No Known Problems Mother No Known Problems Father Family Status - Relation Status Age at Mother Father Level of Service:15823 DC OFFICE/OUTPATIENT ESTABLISHED MOD MDM 30-39 MIN Reason for Visit and Comments: Follow-up [622127] - 6 month follow up Normal [facility] CBC AUTO DIFFon 09-15-2022 BASO # 0.1 103/ul Normal 0.0-0.1 [facility] Comment on above: Performed By: #### C BC #### [facility] [address] [place] [address] [address] Yenny Huertas Basophils/100 WBC (Bld) 0.7 % Normal 0.2-2.0 [facility] Comment on above: Performed By: #### C BC #### [facility] [address] [place] [address] Dr. Yenny Huertas EO # 0.2 103/ul Normal 0.0-0.7 [facility] Comment on above: Performed By: #### C BC #### [facility] [address] [place] [address] Dr. Yenny Huertas Eosinophils/100 WBC (Bld) 2.7 % Normal 0.9-7.0 [facility] Comment on above: Performed By: #### C BC #### [facility] [address] [place] [address] Dr. Yenny Huertas Erythrocyte distribution width (RBC) [Ratio] 14.6 % Normal 11.0-15.0 [facility] Comment on above: Performed By: #### C BC #### [facility] [address] [place] [address] Dr. Yenny Huertas Hematocrit (Bld) [Volume fraction] 41.4 % Normal 36.0-48.0 [facility] Comment on above: Performed By: #### C BC #### [facility] [address] [place] [address] Dr. Yenny Huertas Hemoglobin (Bld) [Mass/Vol] 13.6 g/dL Normal 12.0-16.0 [facility] Comment on above: Performed By: #### C BC #### [facility] [address] [place] [address] Dr. Yenny Huertas IG # 0.03 10e3/ul Normal 0.00-0.03 [facility] Comment on above: Performed By: #### C BC #### [facility] [address] [place] [address] Dr. Yenny Huertas IG % 0.3 % Normal 0.0-0.5 [facility] Comment on above: Performed By: #### C BC #### [facility] [address] [place] [address] Dr. Yenny Huertas LYMPH # 3.3 103/ul Normal 1.2-3.8 [facility] Comment on above: Performed By: #### C BC #### [facility] [address] [place] [address] Dr. Yenny Huertas Lymphocytes/100 WBC (Bld) 36.3 % Normal 20.5-60.0 [facility] Comment on above: Performed By: #### C BC #### [facility] [address] [place] [address] Dr. Yenny Huertas MANUAL DIFF REQ NO Normal [facility] Comment on above: Performed By: #### C BC #### [facility] [address] [place] [address] Dr. Yenny Huertas MCH (RBC) [Entitic mass] 29.1 pg Normal 26.7-34.0 [facility] Comment on above: Performed By: #### C BC #### [facility] [address] [place] [address] Dr. Yenny Huertas MCHC (RBC) [Mass/Vol] 32.9 g/dL Normal 29.9-35.2 [facility] Comment on above: Performed By: #### C BC #### [facility] [address] [place] [address] Dr. Yenny Huertas MCV (RBC) [Entitic vol] 88.7 fL Normal 81.0-99.0 [facility] Comment on above: Performed By: #### C BC #### [facility] [address] [place] [address] Dr. Yenny Huertas MONO # 0.7 103/ul Normal 0.3-0.8 [facility] Comment on above: Performed By: #### C BC #### [facility] [address] [place] [address] Dr. Yenny Huertas Monocytes/100 WBC (Bld) 7.7 % Normal 1.7-12.0 [facility] Comment on above: Performed By: #### C BC #### [facility] [address] [place] [address] Dr. Yenny Huertas NEUT # 4.7 103/ul Normal 1.4-6.5 [facility] Comment on above: Performed By: #### C BC #### [facility] [address] [place] [address] Dr. Yenny Huertas Neutrophils/100 WBC (Bld) 52.3 % Normal 43.0-75.0 [facility] Comment on above: Performed By: #### C BC #### [facility] [address] [place] [address] Dr. Yenny Huertas Platelet mean volume (Bld) [Entitic vol] 9.9 fL Normal 9.5-13.5 [facility] Comment on above: Performed By: #### C BC #### [facility] [address] [place] [address] Dr. Yenny Huertas PLT 285 103/ul Normal 150-450 [facility] Comment on above: Performed By: #### C BC #### [facility] [address] [place] [address] Dr. Yenny Huertas RBC 4.67 106/ul Normal 4.20-5.40 [facility] Comment on above: Performed By: #### C BC #### [facility] [address] [place] [address] Dr. Yenny Huertas WBC 9.0 103/ul Normal 4.0-11.0 [facility] Comment on above: Performed By: #### C BC #### [facility] [address] [place] [address] Dr. Yenny Huertas FREE T4on 09-15-2022 Free T4 [Mass/Vol] 1.04 ng/dL Normal 0.76-1.46 [facility] Comment on above: Performed By: #### F T4 #### [facility] [address] [place] [address] Dr. Yenny Huertas GLYCOHEMOGLOBIN A1Con 2022 ADA RECOMMENDATION SEE BELOW Normal [facility] Comment on above: Result Comment: ADA RECOMMENDED LIMIT 4.0 - 6.0 ADA THERAPEUTIC TARGET < 7.0 ACTION SUGGESTED > 7.0 Performed By: #### A 1C #### [facility] [address] [place] [address] Dr. Yenny Huertas Glucose [Mass/Vol] 126 mg/dL Normal [facility] Comment on above: Performed By: #### A 1C #### [facility] [address] [place] [address] Dr. Yenny Huertas HbA1c (Bld) [Mass fraction] 6.0 % Normal 4.5-6.2 [facility] Comment on above: Performed By: #### A 1C #### [facility] [address] [place] [address] Dr. Yenny Huertas MICROALBUMIN, RAND URon 05-0 mALB <1.3 Normal <=30.0 [facility] Comment on above: Performed By: #### M ALBR #### [facility] [address] [place] [address] Dr. Yenny Huertas PROF 14(COMP METB)on 023 Albumin [Mass/Vol] 3.5 g/dL Normal 3.4-5.0 [facility] Comment on above: Performed By: #### T MADELIN, CMP #### [facility] [address] [place] [address] Dr. Yenny Huertas Albumin/Globulin [Mass ratio] 0.9 {ratio} Normal [facility] Comment on above: Performed By: #### T MADELIN, CMP #### [facility] [address] [place] [address] Dr. Yenny Huertas ALP [Catalytic activity/Vol] 53 U/L Normal 46-116 [facility] Comment on above: Performed By: #### T MADELIN, CMP #### [facility] [address] [place] [address] Dr. Yenny Huertas ALT [Catalytic activity/Vol] 30 U/L Normal 14-59 [facility] Comment on above: Performed By: #### T MADELIN, CMP #### [facility] [address] [place] [address] Dr. Yenny Huertas Anion gap [Moles/Vol] 9.6 mmol/L Normal [facility] Comment on above: Performed By: #### T MADELIN, CMP #### [facility] [address] [place] [address] Dr. Yenny Huertas AST [Catalytic activity/Vol] 17 U/L Normal 15-37 [facility] Comment on above: Performed By: #### T SH, CMP #### [facility] [address] [place] [address] Dr. Yenny Huertas Bilirubin [Mass/Vol] 0.6 mg/dL Normal 0.2-1.0 [facility] Comment on above: Performed By: #### T MADELIN, CMP #### [facility] [address] [place] [address] Dr. Yenny Huertas Calcium [Mass/Vol] 9.1 mg/dL Normal 8.5-10.1 [facility] Comment on above: Performed By: #### T MADELIN, CMP #### [facility] [address] [place] [address] Dr. Yenny Huertas Chloride [Moles/Vol] 106 mmol/L Normal 98-107 [facility] Comment on above: Performed By: #### T MADELIN, CMP #### [facility] [address] [place] [address] Dr. Yenny Huertas CO2 [Moles/Vol] 26.4 mmol/L Normal 21.0-32.0 [facility] Comment on above: Performed By: #### T MADELIN, CMP #### [facility] [address] [place] [address] Dr. Yenny Huertas Creatinine [Mass/Vol] 0.84 mg/dL Normal 0.55-1.02 [facility] Comment on above: Performed By: #### T MADELIN, CMP #### [facility] [address] [place] [place] [address] Dr. Yenny Huertas EGFR-AF ECUADOREAN >60 Normal >=60 The [facility] Comment on above: Performed By: #### T MADELIN, CMP #### [facility] [address] [place] [address] Dr. Yenny Huertas EGFR-NON AF ECUADOREAN >60 Normal >=60 [facility] Comment on above: Performed By: #### T SH, CMP #### [facility] [address] [place] [address] Dr. Yenny Huertas Globulin (S) [Mass/Vol] 3.9 g/dL Normal [facility] Comment on above: Performed By: #### T SH, CMP #### [facility] [address] [place] [address] Dr. Yenny Huertas Glucose [Mass/Vol] 119 mg/dL Critically high 74-106 [facility] Comment on above: Performed By: #### T SH, CMP #### [facility] [address] [place] [address] Dr. Yenny Huertas Potassium [Moles/Vol] 4.0 mmol/L Normal 3.5-5.1 [facility] Comment on above: Performed By: #### T SH, CMP #### [facility] [address] [place] [address] Dr. Yenny Huertas Protein [Mass/Vol] 7.4 g/dL Normal 6.4-8.2 The [facility] Comment on above: Performed By: #### T SH, CMP #### [facility] [address] [place] [address] Dr. Yenny Huertas Sodium [Moles/Vol] 138 mmol/L Normal 136-145 [facility] Comment on above: Performed By: #### T SH, CMP #### [facility] [address] [place] [address] Dr. Yenny Huertas Urea nitrogen [Mass/Vol] 21.0 mg/dL Critically high 7.0-18.0 [facility] Comment on above: Performed By: #### T SH, CMP #### [facility] [address] [place] [address] Dr. Yenny Huertas Urea nitrogen/Creatinine [Mass ratio] 25.0 mg/mg Normal [facility] Comment on above: Performed By: #### T SH, CMP #### [facility] [address] [place] [address] Dr. Yenny Huertas TSHon 09-15-2022 TSH 3.836 uIU/mL Critically high 0.358-3.740 [facility] Comment on above: Performed By: #### T SH, CMP #### [facility] [address] [place] [address] Dr. Yenny Huertas UA RANDOM W/MICROSCOPICon BACTERIA TRACE Abnormal NONE SEEN [facility] Comment on above: Performed By: #### U AMIC #### [facility] [address] [place] [address] Dr. Yenny Huertas Bilirubin Ql (U) Negative Normal NEGATIVE The [facility] Comment on above: Performed By: #### U AMIC #### [facility] [address] [place] [address] Dr. Yenny Huertas CAST NONE SEEN Normal NONE SEEN [facility] Comment on above: Performed By: #### U AMIC #### [facility] [address] [place] [address] Dr. Yenny Huertas Clarity (U) CLEAR Normal CLEAR [facility] Comment on above: Performed By: #### U AMIC #### [facility] [address] [place] [address] Dr. Yenny Huertas Color (U) LT. YELLOW Normal YELLOW [facility] Comment on above: Performed By: #### U AMIC #### [facility] [address] [place] [address] Dr. Yenny Huertas Crystals LM Nom (Urine sed) NONE SEEN Normal NONE SEEN [facility] Comment on above: Performed By: #### U AMIC #### [facility] [address] [place] [address] Dr. Yenny Huertas Epithelial cells LM Ql (Urine sed) MODERATE Abnormal NONE SEEN /RARE The [facility] Comment on above: Performed By: #### U AMIC #### [facility] [address] [place] [address] Dr. Yenny Huertas Glucose Ql (U) Negative Normal NEGATIVE [facility] Comment on above: Performed By: #### U AMIC #### [facility] [address] [place] [address] Dr. Yenny Huertas Hemoglobin Ql (U) Negative Normal NEGATIVE The [facility] Comment on above: Performed By: #### U AMIC #### [facility] [address] [address] [address] Yenny Huertas Ketones Ql (U) Negative Normal NEGATIVE [facility] Comment on above: Performed By: #### U AMIC #### [facility] [address] [address] [address] Yenny Huertas LEUKOCYTES TRACE Abnormal NEGATIVE The [facility] Comment on above: Performed By: #### U AMIC #### [facility] [address] [address] [address] Yenny Huertas MUCOUS NONE SEEN Normal NONE SEEN The [facility] Comment on above: Performed By: #### U AMIC #### [facility] [address] [place] [address] Dr. Yenny Huertas Nitrite Ql (U) Negative Normal NEGATIVE [facility] Comment on above: Performed By: #### U AMIC #### [facility] [address] [place] [address] Dr. Yenny Huertas pH (U) 5.0 [pH] Normal 5-9 [facility] Comment on above: Performed By: #### U AMIC #### [facility] [address] [place] [address] Dr. Yenny Huertas RBC 0-2 Normal 0-2 [facility] Comment on above: Performed By: #### U AMIC #### [facility] [address] [place] [address] Dr. Yenny Huertas SPEC GRAVITY >=1.030 Abnormal 1.005-<=1.025 [facility] Comment on above: Performed By: #### U AMIC #### [facility] [address] [place] [address] Dr. Yenny Huertas UA PROTEIN Negative Normal NEGATIVE/ TRACE The [facility] Comment on above: Performed By: #### U AMIC #### [facility] [address] [place] [address] Dr. Yenny Huertas Urobilinogen Qn (U) 0.2 {Mila'U}/dL Normal 0.2 - 1. 0 The [facility] Comment on above: Performed By: #### U AMIC #### [facility] [address] [address] [address] Yenny Huertas WBC 2-5 Abnormal NONE SEEN The [facility] Comment on above: Performed By: #### U AMIC #### [facility] [address] [address] [address] Yenny Huertas Covid-19 PCR ([facility])on 04-17 SARS-CoV-2 (COVID-19) RNA JAS+probe Ql (Unsp spec) Detected Critically abnormal NOT DETECTED The [facility] Comment on above: Result Comment: This test is not yet approved or cleared by the [place] FDA. When there are no FDA-approved or cleared tests available, and other criteria are met, FDA can make tests available under an emergency access mechanism called an Emergency Use Authorization (EUA). The EUA for this test is supported by the [place] of Health and Human Service's declaration that [...] used). Performed By: #### C VDTBH #### [facility] [address] [place] [address] Dr. Yenny Huertas INFLUENZA A AND B AGon 05-01 [facility] SEE BELOW Normal The [facility] Comment on above: Result Comment: Nega tive for Flu A protein angiten. Infection due to Flu A cannot be ruled out. Flu A angiten in the sample may be below the detection limit of the test. Performed By: #### I NFLUAB #### [facility] [address] [place] [address] Dr. Yenny Huertas INFLUBNEGH SEE BELOW Normal The [facility] Comment on above: Result Comment: Nega tive for Flu B protein antigen. Infection due to Flu B cannot be ruled out. Flu B antigen in the sample may be below the detection limit of the test. Performed By: #### I NFLUAB #### [facility] [address] [place] [address] Dr. Yenny Huertas INFLUENZA A AG Negative Normal NEGATIVE SEE COMMENT [facility] Comment on above: Performed By: #### I NFLUAB #### [facility] [address] [address] [address] Yenny Huertas INFLUENZA B AG Negative Normal NEGATIVE SEE COMMENT [facility] Comment on above: Performed By: #### I NFLUAB #### [facility] [address] [place] [address] Dr. Yenny Huertas INTERNAL CONTROLS Within Normal Limits Normal Wi thin Normal Limits [facility] Comment on above: Performed By: #### I NFLUAB #### [facility] [address] [place] [address] Dr. Yenny Huertas GLYCOHEMOGLOBIN A1Con 2021 ADA RECOMMENDATION SEE BELOW Normal [facility] Comment on above: Result Comment: ADA RECOMMENDED LIMIT 4.0 - 6.0 ADA THERAPEUTIC TARGET < 7.0 ACTION SUGGESTED > 7.0 Performed By: #### M ALBR #### [facility] [address] [place] [address] Dr. Yenny Huertas Glucose [Mass/Vol] 117 mg/dL Normal [facility] Comment on above: Performed By: #### M ALBR #### [facility] [address] [place] [address] Dr. Yenny Huertas HbA1c (Bld) [Mass fraction] 5.7 % Normal 4.5-6.2 [facility] Comment on above: Performed By: #### M ALBR #### [facility] [address] [place] [address] Dr. Yenny Huertas URIC ACID SERUMon 03-13-2022 Urate [Mass/Vol] 4.8 mg/dL Normal 2.6-6.0 [facility] Comment on above: Performed By: #### U DILIA #### [facility] [address] [place] [address] Dr. Yenny Huertas Endoscopy Reporton 1 Endoscopy Report MR#: [id number] [facility] Pt. Name: Hortensia Bates Surgery Date: [...] P/Kirk Aranda MD Date Trans: 11/03/2020 08:22 A/mmo [id number] Normal The [facility] POC GLUCOSE LABon 11-02-2020 Glucose [Mass/Vol] 90 mg/dL Normal 70-100 The [facility] Comment on above: Performed By: #### 3 1792 #### [facility] [address] [place] [address], [facility] BASIC METABOLIC PANELon 07-16 Calcium [Mass/Vol] 7.9 mg/dL Low 8.6-10.3 The [facility] Comment on above: Order Comment: No: D o not add to previous draw Performed By: #### 8 [id number] #### [facility] [address] [place] [address], [place] Chloride [Moles/Vol] 107 mmol/L Normal 98-107 The [facility] Comment on above: Order Comment: No: D o not add to previous draw Performed By: #### 8 5499 #### [facility] [address] [place] [address], [place] CO2 [Moles/Vol] 24 mmol/L Normal 21-31 [facility] Comment on above: Order Comment: No: D o not add to previous draw Performed By: #### 8 [id number] #### [facility] [address] [place] [address], [place] Creatinine [Mass/Vol] 0.62 mg/dL Normal 0.60-1.20 The [facility] Comment on above: Order Comment: No: D o not add to previous draw Performed By: #### 8 [id number] #### [facility] [address] [place] [address], [place] GFR/1.73 sq M.predicted among blacks MDRD (S/P/Bld) [Vol rate/Area] mL/min/{1.73_m2} Normal >60 The [facility] Comment on above: Order Comment: No: D o not add to previous draw Performed By: #### 8 5499 #### [facility] [address] [place] [address], [place] GFR/1.73 sq M.predicted among non-blacks MDRD (S/P/Bld) [Vol rate/Area] mL/min/{1.73_m2} Normal >60 The [facility] Comment on above: Order Comment: No: D o not add to previous draw Performed By: #### 8 [id number] #### [facility] [address] [place] [address], [place] Glucose [Mass/Vol] 106 mg/dL High 70-100 The [facility] Comment on above: Order Comment: No: D o not add to previous draw Performed By: #### 8 5499 #### [facility] [address] [place] [address], [place] Potassium [Moles/Vol] 3.9 mmol/L Normal 3.5-5.1 The [facility] Comment on above: Order Comment: No: D o not add to previous draw Performed By: #### 8 5499 #### [facility] [address] [place] [address], [place] Sodium [Moles/Vol] 137 mmol/L Normal 136-145 The [facility] Comment on above: Order Comment: No: D o not add to previous draw Performed By: #### 8 5499 #### [facility] [address] [place] [address], [place] Urea nitrogen [Mass/Vol] 11 mg/dL Normal 7-25 The [facility] Comment on above: Order Comment: No: D o not add to previous draw Performed By: #### 8 5499 #### [facility] [address] [place] [address], [place] CBC COMPLETE BLOOD COUNTon 0 3- Erythrocyte distribution width (RBC) [Ratio] 14.1 % Normal 11.5-15.0 The [facility] Comment on above: Order Comment: No: D o not add to previous draw Performed By: #### 8 [id number] #### [facility] [address] [place] [address], [facility] Hematocrit (Bld) [Volume fraction] 37.8 % Normal 36.0-45.0 The [facility] Comment on above: Order Comment: No: D o not add to previous draw Performed By: #### 8 [id number] #### [facility] [address] [place] [address], [facility] Hemoglobin (Bld) [Mass/Vol] 12.2 g/dL Normal 12.0-15.0 The [facility] Comment on above: Order Comment: No: D o not add to previous draw Performed By: #### 8 [id number] #### [facility] [address] [place] [address], [facility] MCH (RBC) [Entitic mass] 29.6 pg Normal 27.0-33.0 The [facility] Comment on above: Order Comment: No: D o not add to previous draw Performed By: #### 8 [id number] #### [facility] [address] [place] [address], [facility] MCHC (RBC) [Mass/Vol] 32.3 g/dL Normal 32.0-35.0 The [facility] Comment on above: Order Comment: No: D o not add to previous draw Performed By: #### 8 [id number] #### [facility] [address] [place] [address], [place] MCV (RBC) [Entitic vol] 91.7 fL Normal 82.0-98.0 The [facility] Comment on above: Order Comment: No: D o not add to previous draw Performed By: #### 8 [id number] #### [facility] [address] [place] [address], [place] Nucleated RBC/100 WBC (Bld) [Ratio] 0 % Normal 0-0 The [facility] Comment on above: Order Comment: No: D o not add to previous draw Performed By: #### 8 [id number] #### [facility] [address] [place] [address], [place] PLAT CNT 276 10*3/uL Normal 150-400 The [facility] Comment on above: Order Comment: No: D o not add to previous draw Performed By: #### 8 [id number] #### [facility] [address] [place] [address], [place] RBC (Bld) [#/Vol] 4.12 10*6/uL Normal 3.80-5.00 The [facility] Comment on above: Order Comment: No: D o not add to previous draw Performed By: #### 8 [id number] #### [facility] [address] [place] [address], [place] WBC (Bld) [#/Vol] 15.14 10*3/uL High 4.00-10.60 The [facility] Comment on above: Order Comment: No: D o not add to previous draw Performed By: #### 8 [id number] #### [facility] [address] [place] [address], [facility] MAGNESIUM BLOODon 07-27-2020 Magnesium [Mass/Vol] 1.7 mg/dL Low 1.9-2.7 The [facility] Comment on above: Order Comment: No: D o not add to previous draw Performed By: #### 8 [id number] #### [facility] [address] [place] [address], [place] POC GLUCOSE LABon 07-27-2020 Glucose [Mass/Vol] 93 mg/dL Normal 70-100 The [facility] Comment on above: Performed By: #### 3 1792 #### [facility] [address] [place] [address], [place] Glucose [Mass/Vol] 101 mg/dL High 70-100 The [facility] Comment on above: Performed By: #### 3 5200 #### [facility] [address] Cardiovascular Lab Reporton 07-26-2020 Cardiovascular Lab Report [facility] Patient Name: Hortensia Bates [facility] [place] [facility] MR #: [id number] Physician: Suleiman Grullon MD Department of Service Date: 07/26/2020 Medicine Birthdate: 1955 Division of Room #: 3AB 875230 Cardiology Adult Cardiovascular Services [facility] [address] [place], [place] [address] Cardiovascular Laboratory Report ATRIAL FIBRILLATION ABLATION PROCEDURE [...] mildly enlarged. Esophagus was mapped using the [employer] 3D mapping software. Double transseptal access technique [...] fol (more content not included)... Normal The [facility] POC GLUCOSE LABon 07-26-2020 Glucose [Mass/Vol] 135 mg/dL High 70-100 [facility] Comment on above: Performed By: #### 8 5499 ####[facility] [place] [address], [facility] Glucose [Mass/Vol] 134 mg/dL High 70-100 [facility] Comment on above: Performed By: #### 8 5499 ####[facility] [place] [address], [place] Glucose [Mass/Vol] 106 mg/dL High 70-100 The [facility] Comment on above: Performed By: #### 8 5499 ####[facility] [facility] [place] [address], [facility] Endoscopy Reporton 0 Endoscopy Report MR#: [id number] [facility] Pt. Name: Hortensia Bates Surgery Date: 04/23/2020 Room #: 3AB [id number] Date of : 1955 PROCEDURE NOTE ATTENDING: [...] snare, measured 3 mm and 5 mm. Rpokmshy-[id number]-[id number] sigmoid diverticulosis. 3. Poor colon preparation. RECOMMENDATIONS: [...] A Arley Sanchez M.D. Date Dict: 04/23/2020/08:29 Nona/Arley Sanchez M.D. Date Trans: 04/23/2020 10:38 A/lazarus [id number] [facility] POC GLUCOSE LABon 04-23-2020 Glucose [Mass/Vol] 116 mg/dL High 70-100 [facility] Comment on above: Performed By: #### 8 5499 #### [facility] [address] [place] [address], [place] Glucose [Mass/Vol] 98 mg/dL Normal 70-100 The [facility] Comment on above: Performed By: #### 3 5200 #### [facility] [address] [place] [address], [place] Glucose [Mass/Vol] 89 mg/dL Normal 70-100 The [facility] Comment on above: Performed By: #### 8 5499 ####[facility] [place] [address], [place] POC GLUCOSE LABon 04-22-2020 Glucose [Mass/Vol] 93 mg/dL Normal 70-100 The [facility] Comment on above: Performed By: #### 3 1792 #### [facility] [address] [place] [address], [place] Glucose [Mass/Vol] 99 mg/dL Normal 70-100 The [facility] Comment on above: Performed By: #### 3 5200 #### [facility] [address] [place] [address], [place] Glucose [Mass/Vol] 109 mg/dL High 70-100 The [facility] Comment on above: Performed By: #### 3 1792 #### [facility] [address] [place] [address], [place] *SARS-CoV-2 COVID-19on 04-21 Clinical Report Normal The [facility] Comment on above: Result Comment: Spec imen: OROPHARYNGEAL Collected: 04/21/2020 11:17 Status: Final Last Updated: 04/22/2020 12:41 COVID-19 (Final) Not Detected [facility] [employer] SARS-CoV-2 assay is a real-time (rt) reverse transcriptase (RT) polymerase chain reaction (PCR) test intended for the [employer] system. The SARS-CoV-2 primer and probe sets are designed to detect RNA from SARS-CoV-2 in a nasopharyngeal (CORPORATE DIRECTOR TALENT ASSESSMENT) or oropharyngeal (OP) swab from patients with signs and symptoms of infection who are suspected of COVID-19. Results are for the identification of SARS-CoV-2 RNA. The SARS-CoV-2 RNA is generally detectable in a nasopharyngeal or oropharyngeal swab during the acute phase of infection. The [employer] SARS-CoV-2 assay is intended for use by qualified and trained clinical laboratory personnel specifically instructed and trained in the techniques of real-time PCR and in vitro diagnostic procedures. The [employer] SARS-CoV-2 assay is only for use under the Food and Drug Administration Emergency Use Authorization. Testing is limited to laboratories certified under the Clinical Laboratory Improvement Amendments of 1988 (CLIA), 42 U.S.C. 263a, to perform high complexity tests. Performed By: #### 3 [id number] #### [facility] [address] [facility] [address], [place] POC GLUCOSE LABon 04-21-2020 Glucose [Mass/Vol] 105 mg/dL High 70-100 The [facility] Comment on above: Performed By: #### 8 [id number] #### [facility] [address] [place] [address], [place] Glucose [Mass/Vol] 97 mg/dL Normal 70-100 The [facility] Comment on above: Performed By: #### 8 5499 ####[facility] [facility] [place] [address], [place] Glucose [Mass/Vol] 94 mg/dL Normal 70-100 The [facility] Comment on above: Performed By: #### 8 5499 ####[facility] [place] [address], [place] Glucose [Mass/Vol] 98 mg/dL Normal 70-100 The [facility] Comment on above: Performed By: #### 8 5499 ####[facility] PROTHROMBIN TIMEon 0 INR Coag (PPP) [Relative time] 1.04 {INR} Normal 0.91-1.[address] [facility] Comment on [...] CHEST 1995;[id number]. Performed By: #### 1 0070, [id number] #### [facility] [address] [facility] [address] PT Coag (PPP) [Time] 13.6 s Normal 12.3-14.8 The [facility] Comment on above: Order Comment: No: D o not add to previous draw Result Comment: ALL RESULTS MUST BE INTERPRETED WITH RESPECT TO BLOOD DRAWING ARTIFACT OR DILUTION ERROR OF ANTICOAGULANT AT THE TIME OF SAMPLING. Performed By: #### 1 0070, [id number] #### [facility] [address] [place] [address], [facility] BASIC METABOLIC PANELon 12-0 Calcium [Mass/Vol] 8.8 mg/dL Normal 8.6-10.3 [facility] Comment on above: Order Comment: No: D o not add to previous draw Performed By: #### 1 0070, [id number] #### [facility] [address] [place] [address], [place] Chloride [Moles/Vol] 103 mmol/L Normal 98-107 The [facility] Comment on above: Order Comment: No: D o not add to previous draw Performed By: #### 1 0, 80245 #### [facility] [address] [place] [address], [place] CO2 [Moles/Vol] 26 mmol/L Normal 21-31 [facility] Comment on above: Order Comment: No: D o not add to previous draw Performed By: #### 1 0, 89894 #### [facility] [address] [place] [address], [place] Creatinine [Mass/Vol] 0.82 mg/dL Normal 0.60-1.20 The [facility] Comment on above: Order Comment: No: D o not add to previous draw Performed By: #### 1 0, 16009 #### [facility] [address] [place] [address], [place] GFR/1.73 sq M.predicted among blacks MDRD (S/P/Bld) [Vol rate/Area] mL/min/{1.73_m2} Normal >60 The [facility] Comment on above: Order Comment: No: D o not add to previous draw Performed By: #### 1 0, [id number] #### [facility] [address] [place] [address], [place] GFR/1.73 sq M.predicted among non-blacks MDRD (S/P/Bld) [Vol rate/Area] mL/min/{1.73_m2} Normal >60 The [facility] Comment on above: Order Comment: No: D o not add to previous draw Performed By: #### 1 0, 13785 #### [facility] [address] [place] [address], [place] Glucose [Mass/Vol] 99 mg/dL Normal 70-100 The [facility] Comment on above: Order Comment: No: D o not add to previous draw Performed By: #### 1 0070, 28205 #### [facility] [address] [place] [address], [place] Potassium [Moles/Vol] 3.8 mmol/L Normal 3.5-5.1 The [facility] Comment on above: Order Comment: No: D o not add to previous draw Performed By: #### 1 0070, 68757 #### [facility] [address] [place] [address], [place] Sodium [Moles/Vol] 136 mmol/L Normal 136-145 The [facility] Comment on above: Order Comment: No: D o not add to previous draw Performed By: #### 1 0, 14480 #### [facility] [address] [place] [address], [place] Urea nitrogen [Mass/Vol] 15 mg/dL Normal 7-25 The [facility] Comment on above: Order Comment: No: D o not add to previous draw Performed By: #### 1 0070, 36774 #### [facility] [address] [place] [address], [place] POC GLUCOSE LABon 04-20-2020 Glucose [Mass/Vol] 109 mg/dL High 70-100 The [facility] Comment on above: Performed By: #### 3 5200 #### [facility] [address] [place] [address], [place] Glucose [Mass/Vol] 95 mg/dL Normal 70-100 The [facility] Comment on above: Performed By: #### 8 5499 ####[facility] [place] [address], [place] Glucose [Mass/Vol] 92 mg/dL Normal 70-100 [facility] Comment on above: Performed By: #### 3 5200 #### [facility] [address] [place] [address], [place] Glucose [Mass/Vol] 94 mg/dL Normal 70-100 The [facility] Comment on above: Performed By: #### 8 5499 ####[facility] [place] [address], [place] HEMATOCRITon 04-19-2020 Hematocrit (Bld) [Volume fraction] 42.6 % Normal 36.0-45.0 The [facility] Comment on above: Order Comment: No: D o not add to previous draw Performed By: #### 8 5499 #### [facility] [address] [place] [address], [place] HEMOGLOBINon 04-19-2020 Hemoglobin (Bld) [Mass/Vol] 13.6 g/dL Normal 12.0-15.0 [facility] Comment on above: Order Comment: No: D o not add to previous draw Performed By: #### 8 5499 #### [facility] [address] [place] [address], [place] POC GLUCOSE LABon 04-19-2020 Glucose [Mass/Vol] 114 mg/dL High 70-100 The [facility] Comment on above: Performed By: #### 8 5499 ####[facility] [place] [address], [place] Glucose [Mass/Vol] 110 mg/dL High 70-100 The [facility] Comment on above: Performed By: #### 3 1792 #### [facility] [address] [place] [address], [place] Glucose [Mass/Vol] 95 mg/dL Normal 70-100 The [facility] Comment on above: Performed By: #### 8 5499 ####[facility] Glucose [Mass/Vol] 89 mg/dL Normal 70-100 [facility] Comment on above: Performed By: #### 3 1792 #### [facility] [address] *SARS-CoV-2 COVID-19on 04-18 Clinical Report Normal The [facility] Comment on above: Result Comment: Spec imen: OROPHARYNGEAL Collected: 04/17/2020 23:30 Status: Final Last Updated: 04/18/2020 09:00 COVID-19 (Final) Not Detected The [employer] SARS-CoV-2 assay is a real-time (rt) reverse transcriptase (RT) polymerase chain reaction (PCR) test intended for the [employer] system. The SARS-CoV-2 primer and probe sets are designed to detect RNA from SARS-CoV-2 in a nasopharyngeal (CORPORATE DIRECTOR TALENT ASSESSMENT) or oropharyngeal (OP) swab from patients with signs and symptoms of infection who are suspected of COVID-19. Results are for the identification of SARS-CoV-2 RNA. The SARS-CoV-2 RNA is generally detectable in a nasopharyngeal or oropharyngeal swab during the acute phase of infection. The [employer] SARS-CoV-2 assay is intended for use by qualified and trained clinical laboratory personnel specifically instructed and trained in the techniques of real-time PCR and in vitro diagnostic procedures. The [employer] SARS-CoV-2 assay is only for use under the Food and Drug Administration Emergency Use Authorization. Testing is limited to laboratories certified under the Clinical Laboratory Improvement Amendments of 1988 (CLIA), 42 U.S.C. 263a, to perform high complexity tests. Performed By: #### 3 1791 #### [facility] [address] CBC COMPLETE BLOOD COUNTon 1 06-19-2019 Erythrocyte distribution width (RBC) [Ratio] 14.6 % Normal 11.5-15.0 The [facility] Comment on above: Order Comment: No: D o not add to previous drawMissed pt has to go to the bathroom ask to come back Performed By: #### 8 5499 #### [facility] [address] [place] [address], [facility] Hematocrit (Bld) [Volume fraction] 43.6 % Normal 36.0-45.0 The [facility] Comment on above: Order Comment: No: D o not add to previous drawMissed pt has to go to the bathroom ask to come back Performed By: #### 8 5499 #### [facility] [address] [place] [id number], [facility] Hemoglobin (Bld) [Mass/Vol] 13.8 g/dL Normal 12.0-15.0 [facility] Comment on above: Order Comment: No: D o not add to previous drawMissed pt has to go to the bathroom ask to come back Performed By: #### 8 5499 #### [facility] [address] [facility] [place] [address], [facility] MCH (RBC) [Entitic mass] 28.9 pg Normal 27.0-33.0 [facility] Comment on above: Order Comment: No: D o not add to previous drawMissed pt has to go to the bathroom ask to come back Performed By: #### 8 5499 #### [facility] [address] [facility] [place] [address], [facility] MCHC (RBC) [Mass/Vol] 31.7 g/dL Low 32.0-35.0 [facility] Comment on above: Order Comment: No: D o not add to previous drawMissed pt has to go to the bathroom ask to come back Performed By: #### 8 5499 #### [facility] [address] [place] [id number], [facility] MCV (RBC) [Entitic vol] 91.2 fL Normal 82.0-98.0 [facility] Comment on above: Order Comment: No: D o not add to previous drawMissed pt has to go to the bathroom ask to come back Performed By: #### 8 5499 #### [facility] [address] Nucleated RBC/100 WBC (Bld) [Ratio] 0 % Normal 0-0 [facility] Comment on above: Order Comment: No: D o not add to previous drawMissed pt has to go to the bathroom ask to come back Performed By: #### 8 5499 #### [facility] [address] [facility] [place] [address], [facility] PLAT CNT 338 10*3/uL Normal 150-400 The [facility] Comment on above: Order Comment: No: D o not add to previous drawMissed pt has to go to the bathroom ask to come back Performed By: #### 8 5499 #### [facility] [address] RBC (Bld) [#/Vol] 4.78 10*6/uL Normal 3.80-5.00 The [facility] Comment on above: Order Comment: No: D o not add to previous drawMissed pt has to go to the bathroom ask to come back Performed By: #### 8 5499 #### [facility] [address] WBC (Bld) [#/Vol] 10.61 10*3/uL High 4.00-10.60 [facility] Comment on above: Order Comment: No: D o not add to previous drawMissed pt has to go to the bathroom ask to come back Performed By: #### 8 5499 #### [facility] [address] Endoscopy Reporton 0 Endoscopy Report MR#: [id number] [facility] Pt. Name: Hortensia Bates Surgery Date: 04/18/2020 Room #: 3AB [id number] Date of : 1955 PROCEDURE NOTE ATTENDING: Arley Sanchez M.D. LAP LAYER: Edmond Watkins MD PROCEDURE: Colonoscopy. INDICATION: This [...] to the patient being on anticoagulation. 3. Obocyzum-bk-mbpcbj sigmoid diverticulosis. 4. Poor bowel prep with [...] Watkins MD Date Trans: 04/18/2020 07:10 P/lazarus [id number] Normal [facility] POC GLUCOSE LABon 04-18-2020 Glucose [Mass/Vol] 111 mg/dL High 70-100 The [facility] Comment on above: Performed By: #### 3 1792 #### [facility] [address] [place] [address], [place] Glucose [Mass/Vol] 84 mg/dL Normal 70-100 The [facility] Comment on above: Performed By: #### 8 5499 ####[facility] [place] [address], [place] Glucose [Mass/Vol] 87 mg/dL Normal 70-100 The [facility] Comment on above: Performed By: #### 3 1792 #### [facility] [address] [place] [address], [place] Glucose [Mass/Vol] 86 mg/dL Normal 70-100 The [facility] Comment on above: Performed By: #### 8 5499 ####[facility] [place] [address], [place] Glucose [Mass/Vol] 104 mg/dL High 70-100 [facility] Comment on above: Performed By: #### 8 5499 #### [facility] [address] [facility]. [address] PROTHROMBIN TIMEon 0 INR Coag (PPP) [Relative time] 1.85 {INR} High 0.91-1.16 [facility] Comment on above: Order Comment: No: [...] RANGE. CHEST 1995;108:[id number]. Performed By: #### 1 0, 69285 #### [facility] [address] [facility] [place] [address], [facility] PT Coag (PPP) [Time] 21.4 s High 12.3-14.8 The [facility] Comment on above: Order Comment: No: D o not add to previous draw Result Comment: ALL RESULTS MUST BE INTERPRETED WITH RESPECT TO BLOOD DRAWING ARTIFACT OR DILUTION ERROR OF ANTICOAGULANT AT THE TIME OF SAMPLING. Performed By: #### 1 0, 33093 #### [facility] [address] [facility]. [address] CBC COMPLETE BLOOD COUNTon 06-18-2019 Erythrocyte distribution width (RBC) [Ratio] 14.6 % Normal 11.5-15.0 [facility] Comment on above: Order Comment: Unkno wn Performed By: #### 8 5499 #### [facility] [address] [place] [address], [facility] Hematocrit (Bld) [Volume fraction] 41.7 % Normal 36.0-45.0 [facility] Comment on above: Order Comment: Unkno wn Performed By: #### 8 5499 #### [facility] [address] [place] [address], [facility] Hemoglobin (Bld) [Mass/Vol] 13.4 g/dL Normal 12.0-15.0 [facility] Comment on above: Order Comment: Unkno wn Performed By: #### 8 5499 #### [facility] [address] [facility] [place] [address], [facility] MCH (RBC) [Entitic mass] 29.0 pg Normal 27.0-33.0 [facility] Comment on above: Order Comment: Unkno wn Performed By: #### 8 5499 #### [facility] [address] [facility] [place] [address], [facility] MCHC (RBC) [Mass/Vol] 32.1 g/dL Normal 32.0-35.0 [facility] Comment on above: Order Comment: Unkno wn Performed By: #### 8 5499 #### [facility] [address] [facility] [place] [address], [facility] MCV (RBC) [Entitic vol] 90.3 fL Normal 82.0-98.0 [facility] Comment on above: Order Comment: Unkno wn Performed By: #### 8 5499 #### [facility] [address] [facility] [place] [address], [facility] Nucleated RBC/100 WBC (Bld) [Ratio] 0 % Normal 0-0 [facility] Comment on above: Order Comment: Unkno wn Performed By: #### 8 5499 #### [facility] [address] [facility] [place] [address], [facility] PLAT CNT 294 10*3/uL Normal 150-400 The [facility] Comment on above: Order Comment: Unkno wn Performed By: #### 8 5499 #### [facility] [address] [place] [address], [facility] RBC (Bld) [#/Vol] 4.62 10*6/uL Normal 3.80-5.00 [facility] Comment on above: Order Comment: Unkno wn Performed By: #### 8 5499 #### [facility] [address] [place] [address], [facility] WBC (Bld) [#/Vol] 9.33 10*3/uL Normal 4.00-10.60 [facility] Comment on above: Order Comment: Unkno wn Performed By: #### 8 5499 #### [facility] [address] CBC W/DIFFon 04-17-2020 ABS IMM GRANS 0.0 10*3/uL Normal 0.0-0.2 The [facility] Comment on above: Order Comment: No: D o not add to previous draw Performed By: #### 8 5499 #### [facility] [address] ABS NEUTROPHILS 6.4 10*3/uL Normal 1.6-7.6 The [facility] Comment on above: Order Comment: No: D o not add to previous draw Performed By: #### 8 5499 #### [facility] [address] [place] [address], [facility] Basophils (Bld) [#/Vol] 0.1 10*3/uL Normal 0.0-0.2 The [facility] Comment on above: Order Comment: No: D o not add to previous draw Performed By: #### 8 5499 #### [facility] [address] [place] [address], [facility] Basophils/100 WBC (Bld) 0.8 % Normal 0.0-1.0 [facility] Comment on above: Order Comment: No: D o not add to previous draw Performed By: #### 8 5499 #### [facility] [address] [place] [address], [facility] Eosinophils (Bld) [#/Vol] 0.4 10*3/uL Normal 0.0-0.5 [facility] Comment on above: Order Comment: No: D o not add to previous draw Performed By: #### 8 5499 #### [facility] [address] [place] [address], [facility] Eosinophils/100 WBC (Bld) 3.3 % Normal 0.0-6.0 [facility] Comment on above: Order Comment: No: D o not add to previous draw Performed By: #### 8 5499 #### [facility] [address] [place] [address], [facility] Erythrocyte distribution width (RBC) [Ratio] 14.6 % Normal 11.5-15.0 [facility] Comment on above: Order Comment: No: D o not add to previous draw Performed By: #### 8 5499 #### [facility] [address] [place] [address], [facility] Hematocrit (Bld) [Volume fraction] 43.6 % Normal 36.0-45.0 [facility] Comment on above: Order Comment: No: D o not add to previous draw Performed By: #### 8 5499 #### [facility] [address] [place] [address], [facility] Hemoglobin (Bld) [Mass/Vol] 14.1 g/dL Normal 12.0-15.0 [facility] Comment on above: Order Comment: No: D o not add to previous draw Performed By: #### 8 5499 #### [facility] [address] [place] [address], [facility] IMMATURE GRANS 0.4 % Normal 0.0-1.0 The [facility] Comment on above: Order Comment: No: D o not add to previous draw Performed By: #### 8 5499 #### [facility] [address] [place] [address], [facility] Lymphocytes (Bld) [#/Vol] 3.2 10*3/uL Normal 1.2-4.0 [facility] Comment on above: Order Comment: No: D o not add to previous draw Performed By: #### 8 5499 #### [facility] [address] [place] [address], [facility] Lymphocytes/100 WBC (Bld) 29.7 % Normal 20.0-45.0 [facility] Comment on above: Order Comment: No: D o not add to previous draw Performed By: #### 8 5499 #### [facility] [address] [place] [address], [facility] MCH (RBC) [Entitic mass] 29.1 pg Normal 27.0-33.0 [facility] Comment on above: Order Comment: No: D o not add to previous draw Performed By: #### 8 5499 #### [facility] [address] [place] [address], [facility] MCHC (RBC) [Mass/Vol] 32.3 g/dL Normal 32.0-35.0 [facility] Comment on above: Order Comment: No: D o not add to previous draw Performed By: #### 8 5499 #### [facility] [address] [place] [address], [facility] MCV (RBC) [Entitic vol] 89.9 fL Normal 82.0-98.0 [facility] Comment on above: Order Comment: No: D o not add to previous draw Performed By: #### 8 5499 #### [facility] [address] [place] [address], [place] Monocytes (Bld) [#/Vol] 0.7 10*3/uL Normal 0.1-1.0 [facility] Comment on above: Order Comment: No: D o not add to previous draw Performed By: #### 8 5499 #### [facility] [address] [place] [address], [place] MONOS 6.8 % Normal 5.0-12.0 [facility] Comment on above: Order Comment: No: D o not add to previous draw Performed By: #### 8 5499 #### [facility] [address] [place] [address], [facility] Neutrophils/100 WBC (Bld) 59.0 % Normal 40.0-72.0 [facility] Comment on above: Order Comment: No: D o not add to previous draw Performed By: #### 8 5499 #### [facility] [address] [place] [address], [place] Nucleated RBC/100 WBC (Bld) [Ratio] 0 % Normal 0-0 [facility] Comment on above: Order Comment: No: D o not add to previous draw Performed By: #### 8 5499 #### [facility] [address] [place] [address], [place] PLAT CNT 332 10*3/uL Normal 150-400 The [facility] Comment on above: Order Comment: No: D o not add to previous draw Performed By: #### 8 5499 #### [facility] [address] [place] [address], [place] RBC (Bld) [#/Vol] 4.85 10*6/uL Normal 3.80-5.00 [facility] Comment on above: Order Comment: No: D o not add to previous draw Performed By: #### 8 5499 #### [facility] [address] [place] [address], [facility] WBC (Bld) [#/Vol] 10.90 10*3/uL High 4.00-10.60 [facility] Comment on above: Order Comment: No: D o not add to previous draw Performed By: #### 8 5499 #### [facility] [address] [facility] [place] [address], [facility] POC GLUCOSE LABon 04-17-2020 Glucose [Mass/Vol] 109 mg/dL High 70-100 The [facility] Comment on above: Performed By: #### 3 1792 #### [facility] [address] [place] [address], [facility] Glucose [Mass/Vol] 93 mg/dL Normal 70-100 [facility] Comment on above: Performed By: #### 3 5200 #### [facility] [address] [facility] [place] [address], [facility] Glucose [Mass/Vol] 101 mg/dL High 70-100 [facility] Comment on above: Performed By: #### 8 5499 ####[facility] [place] [address], [facility] Glucose [Mass/Vol] 106 mg/dL High 70-100 [facility] Comment on above: Performed By: #### 8 5499 #### [facility] [address] [place] [address], [facility] *BLOOD CULTUREon 04-16-2020 *BLOOD CULTURE Clinical Report: (D) Specimen: BLOOD CULTURE Collected: 04/16/2020 00:31 Status: Final Last Updated: 04/21/2020 06:49 CULT RES (Final) No Growth Day 5 Normal [facility] Comment on above: Performed By: #### 8 5499 #### [facility] [address] [place] [address], [facility] APTTon 04-16-2020 aPTT Coag (Bld) [Time] 72.4 s Critically high 25.0-35.[address] [facility] Comment on [...] IU/ml . Performed By: #### 1 0, 06110 #### [facility] [address] [place] [address], [facility] BASIC METABOLIC PANELon 11-3 -2019 Calcium [Mass/Vol] 9.5 mg/dL Normal 8.6-10.3 [facility] Comment on above: Order Comment: No: D o not add to previous draw Performed By: #### 1 0, 52960 #### [facility] [address] [place] [address], [facility] Chloride [Moles/Vol] 102 mmol/L Normal 98-107 [facility] Comment on above: Order Comment: No: D o not add to previous draw Performed By: #### 1 0, 08663 #### [facility] [address] [place] [address], [place] CO2 [Moles/Vol] 25 mmol/L Normal 21-31 [facility] Comment on above: Order Comment: No: D o not add to previous draw Performed By: #### 1 0, 11267 #### [facility] [address] [place] [address], [place] Creatinine [Mass/Vol] 0.69 mg/dL Normal 0.60-1.20 [facility] Comment on above: Order Comment: No: D o not add to previous draw Performed By: #### 1 0, 52115 #### [facility] [address] [place] [address], [place] GFR/1.73 sq M.predicted among blacks MDRD (S/P/Bld) [Vol rate/Area] mL/min/{1.73_m2} Normal >60 [facility] Comment on above: Order Comment: No: D o not add to previous draw Performed By: #### 1 0, 99667 #### [facility] [address] [place] [address], [place] GFR/1.73 sq M.predicted among non-blacks MDRD (S/P/Bld) [Vol rate/Area] mL/min/{1.73_m2} Normal >60 [facility] Comment on above: Order Comment: No: D o not add to previous draw Performed By: #### 1 0, 33225 #### [facility] [address] [place] [address], [place] Glucose [Mass/Vol] 102 mg/dL High 70-100 [facility]: Order Comment: No: D o not add to previous draw Performed By: #### 1 0, 30397 #### [facility] [address] [place] [address], [place] Potassium [Moles/Vol] 3.5 mmol/L Normal 3.5-5.1 [facility] Comment on above: Order Comment: No: D o not add to previous draw Performed By: #### 1 0, 70183 #### [facility] [address] [place] [address], [place] Sodium [Moles/Vol] 136 mmol/L Normal 136-145 The [facility] Comment on above: Order Comment: No: D o not add to previous draw Performed By: #### 1 0, 79763 #### [facility] [address] [place] [address], [place] Urea nitrogen [Mass/Vol] 14 mg/dL Normal 7-25 [facility] Comment on above: Order Comment: No: D o not add to previous draw Performed By: #### 1 0070, 61967 #### [facility] [address] [place] [address], [place] Calcium [Mass/Vol] 10.0 mg/dL Normal 8.6-10.3 [facility] Comment on above: Order Comment: No: D o not add to previous draw Performed By: #### 3 179 #### [facility] [address] [place] [address], [place] Chloride [Moles/Vol] 101 mmol/L Normal 98-107 [facility] Comment on above: Order Comment: No: D o not add to previous draw Performed By: #### 3 179 #### [facility] [address] [place] [address], [place] CO2 [Moles/Vol] 26 mmol/L Normal 21-31 [facility] Comment on above: Order Comment: No: D o not add to previous draw Performed By: #### 3 179 #### [facility] [address] [place] [address], [place] Creatinine [Mass/Vol] 0.74 mg/dL Normal 0.60-1.20 [facility] Comment on above: Order Comment: No: D o not add to previous draw Performed By: #### 3 179 #### [facility] [address] [place] [address], [place] GFR/1.73 sq M.predicted among blacks MDRD (S/P/Bld) [Vol rate/Area] mL/min/{1.73_m2} Normal >60 [facility] Comment on above: Order Comment: No: D o not add to previous draw Performed By: #### 3 179 #### [facility] [address] [place] [address], [facility] GFR/1.73 sq M.predicted among non-blacks MDRD (S/P/Bld) [Vol rate/Area] mL/min/{1.73_m2} Normal >60 [facility] Comment on above: Order Comment: No: D o not add to previous draw Performed By: #### 3 1791 #### [facility] [address] [place] [address], [facility] Glucose [Mass/Vol] 109 mg/dL High 70-100 The [facility] Comment on above: Order Comment: No: D o not add to previous draw Performed By: #### 3 1791 #### [facility] [address] [place] [id number], [facility] Potassium [Moles/Vol] 3.7 mmol/L Normal 3.5-5.1 [facility] Comment on above: Order Comment: No: D o not add to previous draw Performed By: #### 3 1791 #### [facility] [address] [place] [address], [facility] Sodium [Moles/Vol] 136 mmol/L Normal 136-145 [facility] Comment on above: Order Comment: No: D o not add to previous draw Performed By: #### 3 1791 #### [facility] [address] [place] [address], [facility] Urea nitrogen [Mass/Vol] 14 mg/dL Normal 7-25 [facility] Comment on above: Order Comment: No: D o not add to previous draw Performed By: #### 3 179 #### [facility] [address] [place] [address], [facility] CBC W/DIFFon 04-16-2020 ABS IMM GRANS 0.0 10*3/uL Normal 0.0-0.2 The [facility] Comment on above: Order Comment: No: D o not add to previous draw Performed By: #### 8 5499 #### [facility] [address] [place] [address], [facility] ABS NEUTROPHILS 7.2 10*3/uL Normal 1.6-7.6 The [facility] Comment on above: Order Comment: No: D o not add to previous draw Performed By: #### 8 5499 #### [facility] [address] [place] [address], [facility] Basophils (Bld) [#/Vol] 0.1 10*3/uL Normal 0.0-0.2 [facility] Comment on above: Order Comment: No: D o not add to previous draw Performed By: #### 8 5499 #### [facility] [address] [place] [id number], [facility] Basophils/100 WBC (Bld) 0.7 % Normal 0.0-1.0 [facility] Comment on above: Order Comment: No: D o not add to previous draw Performed By: #### 8 5499 #### [facility] [address] [place] [address], [facility] Eosinophils (Bld) [#/Vol] 0.2 10*3/uL Normal 0.0-0.5 [facility] Comment on above: Order Comment: No: D o not add to previous draw Performed By: #### 8 5499 #### [facility] [address] [facility] [address] [place] [id number], [facility] Eosinophils/100 WBC (Bld) 2.1 % Normal 0.0-6.0 [facility] Comment on above: Order Comment: No: D o not add to previous draw Performed By: #### 8 5499 #### [facility] [address] [place] [id number], [place] Erythrocyte distribution width (RBC) [Ratio] 14.4 % Normal 11.5-15.0 [facility] Comment on above: Order Comment: No: D o not add to previous draw Performed By: #### 8 5499 #### [facility] [address] [place] [address], [facility] Hematocrit (Bld) [Volume fraction] 43.2 % Normal 36.0-45.0 [facility] Comment on above: Order Comment: No: D o not add to previous draw Performed By: #### 8 5499 #### [facility] [address] [place] [address], [facility] Hemoglobin (Bld) [Mass/Vol] 14.2 g/dL Normal 12.0-15.0 [facility] Comment on above: Order Comment: No: D o not add to previous draw Performed By: #### 8 5499 #### [facility] [address] [place] [address], [facility] IMMATURE GRANS 0.3 % Normal 0.0-1.0 The [facility] Comment on above: Order Comment: No: D o not add to previous draw Performed By: #### 8 5499 #### [facility] [address] [place] [address], [facility] Lymphocytes (Bld) [#/Vol] 2.9 10*3/uL Normal 1.2-4.0 [facility] Comment on above: Order Comment: No: D o not add to previous draw Performed By: #### 8 5499 #### [facility] [address] [place] [address], [facility] Lymphocytes/100 WBC (Bld) 25.1 % Normal 20.0-45.0 [facility] Comment on above: Order Comment: No: D o not add to previous draw Performed By: #### 8 5499 #### [facility] [address] [place] [id number], [facility] MCH (RBC) [Entitic mass] 29.5 pg Normal 27.0-33.0 [facility] Comment on above: Order Comment: No: D o not add to previous draw Performed By: #### 8 5499 #### [facility] [address] [place] [address], [facility] MCHC (RBC) [Mass/Vol] 32.9 g/dL Normal 32.0-35.0 [facility] Comment on above: Order Comment: No: D o not add to previous draw Performed By: #### 8 5499 #### [facility] [address] [place] [id number], [facility] MCV (RBC) [Entitic vol] 89.8 fL Normal 82.0-98.0 [facility] Comment on above: Order Comment: No: D o not add to previous draw Performed By: #### 8 5499 #### [facility] [address] [place] [address], [facility] Monocytes (Bld) [#/Vol] 0.9 10*3/uL Normal 0.1-1.0 [facility] Comment on above: Order Comment: No: D o not add to previous draw Performed By: #### 8 5499 #### [facility] [address] [place] [id number], [facility] MONOS 8.0 % Normal 5.0-12.0 [facility] Comment on above: Order Comment: No: D o not add to previous draw Performed By: #### 8 5499 #### [facility] [address] [place] [address], [facility] Neutrophils/100 WBC (Bld) 63.8 % Normal 40.0-72.0 [facility] Comment on above: Order Comment: No: D o not add to previous draw Performed By: #### 8 5499 #### [facility] [address] [place] [address], [facility] Nucleated RBC/100 WBC (Bld) [Ratio] 0 % Normal 0-0 [facility] Comment on above: Order Comment: No: D o not add to previous draw Performed By: #### 8 5499 #### [facility] [address] PLAT CNT 335 10*3/uL Normal 150-400 The [facility] Comment on above: Order Comment: No: D o not add to previous draw Performed By: #### 8 5499 #### [facility] [address] [place] [address], [facility] RBC (Bld) [#/Vol] 4.81 10*6/uL Normal 3.80-5.00 [facility] Comment on above: Order Comment: No: D o not add to previous draw Performed By: #### 8 5499 #### [facility] [address] [place] [address], [facility] WBC (Bld) [#/Vol] 11.34 10*3/uL High 4.00-10.[address] [facility] Comment on above: Order Comment: No: D o not add to previous draw Performed By: #### 8 5499 #### [facility] [address] [place] [address], [facility] CTA CHESTon 04-16-2020 CTA CHEST [facility] Department of Radiology [address] [place] [id number] Patient Name: HORTENSIA BATES : 1955 Sex: F Age: Race: White Pt. Location: [address] [place] [address] Patient Status: D Ordered Date: 04/16/2020 9:05:00 [...] criteria Electronically signed: Jax Perez. Transcribed by: [email or web address], User Resident: Electronically Signed by: LA NENA DIAZ @ 05/28/2020 12:26 AM Normal [facility] Comment on above: Order Comment: Other , Planned for AFib albation, anatomy of pulmonary veins MAGNESIUM BLOODon 04-16-2020 Magnesium [Mass/Vol] 1.7 mg/dL Low 1.9-2.7 [facility] Comment on above: Order Comment: No: D o not add to previous draw Performed By: #### 1 0070, 91588 #### [facility] [address] Magnesium [Mass/Vol] 1.8 mg/dL Low 1.9-2.7 [facility] Comment on above: Order Comment: No: D o not add to previous draw Performed By: #### 1 0070, 57707 #### [facility] [address] [place] [address], [facility] PHOSPHORUS BLOODon 0 Phosphate [Mass/Vol] 3.6 mg/dL Normal 2.5-5.0 [facility] Comment on above: Order Comment: No: D o not add to previous draw Performed By: #### 1 0070, 67025 #### [facility] [address] [place] [address], [facility] POC GLUCOSE LABon 04-16-2020 Glucose [Mass/Vol] 111 mg/dL High 70-100 The [facility] Comment on above: Performed By: #### 8 5499 ####[facility] [facility] [place] [address], [facility] Glucose [Mass/Vol] 122 mg/dL High 70-100 [facility]: Performed By: #### 3 5200 #### [facility] [address] [place] [address], [facility] Glucose [Mass/Vol] 105 mg/dL High 70-100 The [facility] Comment on above: Performed By: #### 8 5499 ####[facility] [facility] [place] [address], [facility] Glucose [Mass/Vol] 106 mg/dL High 70-100 [facility] Comment on above: Performed By: #### 8 5499 #### [facility] [address] [facility] [place] [address], [facility] PROTHROMBIN TIMEon 0 INR Coag (PPP) [Relative time] 2.24 {INR} High 0.91-1.16 [facility] Comment on above: Order Comment: No: [...] CHEST 1995;108:231S-246S. Performed By: #### 1 0070, 96332 #### [facility] [address] PT Coag (PPP) [Time] 24.9 s High 12.3-14.8 [facility] Comment on above: Order Comment: No: D o not add to previous draw Result Comment: ALL RESULTS MUST BE INTERPRETED WITH RESPECT TO BLOOD DRAWING ARTIFACT OR DILUTION ERROR OF ANTICOAGULANT AT THE TIME OF SAMPLING. Performed By: #### 1 0070, 84398 #### [facility] [address] [facility]. [address] TROPONIN-Ion 04-16-2020 Troponin I.cardiac [Mass/Vol] 0.01 ng/mL Normal 0.00-0.[address] [facility] Comment on above: Order Comment: No: D o not add to previous draw Result Comment: REFE RENCE RANGES: 0.00 - 0.04 ng/ml NORMAL 0.05 - 0.50 ng/ml INDETERMINATE > 0.50 ng/ml CONSISTENT WITH AN M.I. Performed By: #### 3 5200 #### [facility] [address] [facility] [place] [address], [facility] Troponin I.cardiac [Mass/Vol] 0.01 ng/mL Normal 0.00-0.04 [facility] Comment on above: Order Comment: No: D o not add to previous draw Result Comment: REFE RENCE RANGES: 0.00 - 0.04 ng/ml NORMAL 0.05 - 0.50 ng/ml INDETERMINATE > 0.50 ng/ml CONSISTENT WITH AN M.I. Performed By: #### 3 1791 #### [facility] [address] [facility]. [address] Troponin I.cardiac [Mass/Vol] 0.01 ng/mL Normal 0.00-0.04 [facility] Comment on above: Order Comment: No: D o not add to previous draw Result Comment: REFE RENCE RANGES: 0.00 - 0.04 ng/ml NORMAL 0.05 - 0.50 ng/ml INDETERMINATE > 0.50 ng/ml CONSISTENT WITH AN M.I. Performed By: #### 3 1791 #### [facility] [address] [facility]. [address] UFH HEPARIN ASSAYon 04-16-20 20 UNFRACTIONATED HEPARIN 0.28 IU/mL Low 0.30-0.70 [facility] Comment on above: Result Comment: Bell roxaban and Apixaban will interfere with the anti Xa assay used to monitor UFH and LMWH. Performed By: #### 1 0070, 88874 #### [facility] [address] [facility]. [address] MAGNESIUM BLOODon 04-01-2020 Magnesium [Mass/Vol] 2.0 mg/dL Normal 1.9-2.7 [facility] Comment on above: Order Comment: No: D o not add to previous draw Performed By: #### 1 0070, 23682 #### [facility] [address] [facility]. [address] POTASSIUM BLOODon 04-01-2020 Potassium [Moles/Vol] 3.6 mmol/L Normal 3.5-5.1 [facility] Comment on above: Order Comment: No: D o not add to previous draw Performed By: #### 1 0070, 43998 #### [facility] [address] [place] [address], [facility] PROTHROMBIN TIMEon 0 INR Coag (PPP) [Relative time] 1.99 {INR} High 0.91-1.16 [facility] Comment on above: Order Comment: Unkno wn Result Comment: ACCC P RECOMMENDED INR FOR [...] 1995;108:231S-246S. Performed By: #### 8 5499 #### [facility] [address] [facility] [address] PT Coag (PPP) [Time] 22.7 s High 12.3-14.8 [facility] Comment on above: Order Comment: Unkno wn Result Comment: ALL RESULTS MUST BE INTERPRETED WITH RESPECT TO BLOOD DRAWING ARTIFACT OR DILUTION ERROR OF ANTICOAGULANT AT THE TIME OF SAMPLING. Performed By: #### 8 5499 #### [facility] [address] BASIC METABOLIC PANELon 11-1 Calcium [Mass/Vol] 8.8 mg/dL Normal 8.6-10.3 The [facility] Comment on above: Order Comment: No: D o not add to previous draw Performed By: #### 1 5390, 84760 #### [facility] [address] [place] [address], [facility] Chloride [Moles/Vol] 103 mmol/L Normal 98-107 [facility] Comment on above: Order Comment: No: D o not add to previous draw Performed By: #### 1 0, 42721 #### [facility] [address] [place] [address], [place] CO2 [Moles/Vol] 26 mmol/L Normal 21-31 [facility] Comment on above: Order Comment: No: D o not add to previous draw Performed By: #### 1 0, 60939 #### [facility] [address] [place] [address], [place] Creatinine [Mass/Vol] 0.75 mg/dL Normal 0.60-1.[address] [facility] Comment on above: Order Comment: No: D o not add to previous draw Performed By: #### 1 0, 08811 #### [facility] [address] [place] [address], [place] GFR/1.73 sq M.predicted among blacks MDRD (S/P/Bld) [Vol rate/Area] mL/min/{1.73_m2} Normal >[address] [facility] Comment on above: Order Comment: No: D o not add to previous draw Performed By: #### 1 0, 93633 #### [facility] [address] [place] [address], [place] GFR/1.73 sq M.predicted among non-blacks MDRD (S/P/Bld) [Vol rate/Area] mL/min/{1.73_m2} Normal >[address] [facility] Comment on above: Order Comment: No: D o not add to previous draw Performed By: #### 1 0, 71735 #### [facility] [address] [place] [address], [place] Glucose [Mass/Vol] 88 mg/dL Normal 70-100 [facility] Comment on above: Order Comment: No: D o not add to previous draw Performed By: #### 1 0070, 35349 #### [facility] [address] [place] [address], [place] Potassium [Moles/Vol] 3.8 mmol/L Normal 3.5-5.1 [facility] Comment on above: Order Comment: No: D o not add to previous draw Performed By: #### 1 0070, 98399 #### [facility] [address] [place] [address], [place] Sodium [Moles/Vol] 135 mmol/L Low 136-145 [facility] Comment on above: Order Comment: No: D o not add to previous draw Performed By: #### 1 0, 18470 #### [facility] [address] [place] [address], [place] Urea nitrogen [Mass/Vol] 17 mg/dL Normal 7-25 [facility] Comment on above: Order Comment: No: D o not add to previous draw Performed By: #### 1 0, 35370 #### [facility] [address] [place] [address], [place] MAGNESIUM BLOODon 03-31-2020 Magnesium [Mass/Vol] 1.9 mg/dL Normal 1.9-2.7 [facility] Comment on above: Order Comment: No: D o not add to previous draw Performed By: #### 1 0, 25925 #### [facility] [address] [place] [address], [place] POC GLUCOSE LABon 03-31-2020 Glucose [Mass/Vol] 95 mg/dL Normal 70-100 [facility] Comment on above: Performed By: #### 3 5200 #### [facility] [address] [place] [address], [place] Glucose [Mass/Vol] 86 mg/dL Normal 70-100 [facility] Comment on above: Performed By: #### 8 5499 #### [facility] [address] [place] [address], [place] Glucose [Mass/Vol] 82 mg/dL Normal 70-100 [facility] Comment on above: Performed By: #### 3 1792 #### [facility] [address] [place] [address], [facility] Glucose [Mass/Vol] 92 mg/dL Normal 70-100 [facility] Comment on above: Performed By: #### 8 5499 ####[facility] [place] [address], [facility] Glucose [Mass/Vol] 96 mg/dL Normal 70-100 [facility] Comment on above: Performed By: #### 8 5499 ####[facility] [facility] [place] [address], [facility] PROTHROMBIN TIMEon 0 INR Coag (PPP) [Relative time] 1.80 {INR} High 0.91-1.16 [facility] Comment on above: Order Comment: No: [...] CHEST 1995;108:231S-246S. Performed By: #### 1 0070, 19157 #### [facility] [address] [place] [address], [place] PT Coag (PPP) [Time] 21.0 s High 12.3-14.[address] [facility] Comment on above: Order Comment: No: D o not add to previous draw Result Comment: ALL RESULTS MUST BE INTERPRETED WITH RESPECT TO BLOOD DRAWING ARTIFACT OR DILUTION ERROR OF ANTICOAGULANT AT THE TIME OF SAMPLING. Performed By: #### 1 0, 50468 #### [facility] [address] [place] [address], [facility] BASIC METABOLIC PANELon 11-1 Calcium [Mass/Vol] 9.0 mg/dL Normal 8.6-10.3 [facility] Comment on above: Order Comment: No: D o not add to previous draw Performed By: #### 1 0, 79647 #### [facility] [address] [place] [address], [facility] Chloride [Moles/Vol] 101 mmol/L Normal 98-107 [facility] Comment on above: Order Comment: No: D o not add to previous draw Performed By: #### 1 69, 16088 #### [facility] [address] [place] [address], [facility] CO2 [Moles/Vol] 25 mmol/L Normal 21-31 The [facility] Comment on above: Order Comment: No: D o not add to previous draw Performed By: #### 1 69, 97526 #### [facility] [address] [place] [address], [facility] Creatinine [Mass/Vol] 0.90 mg/dL Normal 0.60-1.20 [facility] Comment on above: Order Comment: No: D o not add to previous draw Performed By: #### 1 0, 32233 #### [facility] [address] [place] [address], [facility] GFR/1.73 sq M.predicted among blacks MDRD (S/P/Bld) [Vol rate/Area] mL/min/{1.73_m2} Normal >60 [facility] Comment on above: Order Comment: No: D o not add to previous draw Performed By: #### 1 0, 65762 #### [facility] [address] [place] [address], [place] GFR/1.73 sq M.predicted among non-blacks MDRD (S/P/Bld) [Vol rate/Area] mL/min/{1.73_m2} Normal >60 [facility] Comment on above: Order Comment: No: D o not add to previous draw Performed By: #### 1 0, 34633 #### [facility] [address] [place] [address], [place] Glucose [Mass/Vol] 77 mg/dL Normal 70-100 [facility] Comment on above: Order Comment: No: D o not add to previous draw Performed By: #### 1 69, 10806 #### [facility] [address] [place] [address], [place] Potassium [Moles/Vol] 4.0 mmol/L Normal 3.5-5.1 [facility] Comment on above: Order Comment: No: D o not add to previous draw Performed By: #### 1 69, 21687 #### [facility] [address] [place] [address], [place] Sodium [Moles/Vol] 135 mmol/L Low 136-145 [facility] Comment on above: Order Comment: No: D o not add to previous draw Performed By: #### 1 69, 45252 #### [facility] [address] [place] [address], [place] Urea nitrogen [Mass/Vol] 17 mg/dL Normal 7-25 [facility] Comment on above: Order Comment: No: D o not add to previous draw Performed By: #### 1 69, 38986 #### [facility] [address] [place] [address], [place] CBC COMPLETE BLOOD COUNTon 05-30-2019 Erythrocyte distribution width (RBC) [Ratio] 14.9 % Normal 11.5-15.0 [facility] Comment on above: Order Comment: No: D o not add to previous draw Performed By: #### 8 5499 #### [facility] [address] [place] [id number], [facility] Hematocrit (Bld) [Volume fraction] 47.5 % High 36.0-45.0 [facility] Comment on above: Order Comment: No: D o not add to previous draw Performed By: #### 8 5499 #### [facility] [address] [place] [address], [facility] Hemoglobin (Bld) [Mass/Vol] 15.3 g/dL High 12.0-15.0 [facility] Comment on above: Order Comment: No: D o not add to previous draw Performed By: #### 8 5499 #### [facility] [address] [place] [id number], [facility] MCH (RBC) [Entitic mass] 29.7 pg Normal 27.0-33.0 [facility] Comment on above: Order Comment: No: D o not add to previous draw Performed By: #### 8 5499 #### [facility] [address] [place] [id number], [facility] MCHC (RBC) [Mass/Vol] 32.2 g/dL Normal 32.0-35.0 [facility] Comment on above: Order Comment: No: D o not add to previous draw Performed By: #### 8 5499 #### [facility] [address] [place] [address], [place] MCV (RBC) [Entitic vol] 92.1 fL Normal 82.0-98.0 The [facility] Comment on above: Order Comment: No: D o not add to previous draw Performed By: #### 8 [id number] #### [facility] [address] [place] [id number], [place] Nucleated RBC/100 WBC (Bld) [Ratio] 0 % Normal 0-0 The [facility] Comment on above: Order Comment: No: D o not add to previous draw Performed By: #### 8 5499 #### [facility] [address] [place] [address], [facility] PLAT CNT 321 10*3/uL Normal 150-400 The [facility] Comment on above: Order Comment: No: D o not add to previous draw Performed By: #### 8 5499 #### [facility] [address] [facility] [place] [address], [facility] RBC (Bld) [#/Vol] 5.16 10*6/uL High 3.80-5.00 The [facility] Comment on above: Order Comment: No: D o not add to previous draw Performed By: #### 8 [id number] #### [facility] [address] [facility] [place] [address], [facility] WBC (Bld) [#/Vol] 12.02 10*3/uL High 4.00-10.[address] [facility] Comment on above: Order Comment: No: D o not add to previous draw Performed By: #### 8 5499 #### [facility] [address] [place] [address], [facility] Cardiovascular Lab Reporton 03-30-2020 Cardiovascular Lab Report [facility] Patient Name: [facility] Hortensia Berry MR #: [id number] Department of Physician: Jessica Lopez MOlga Division of Service Date: 03/30/2020 Cardiology Birthdate: 1955 Adult Cardiovascular Room #: 3AB [id number] [place] [address] Cardiovascular Laboratory Report CLINICAL PRESENTATION: The patient [...] infiltrated over the right radial artery. A 6-Prydeinig Terumo Glidesheath slender was placed in right radial artery. The radial anti-vasospasm cocktail of verapamil 2.5 mg and nitroglycerin 200 mcg was administered through the sheath. All catheter exchanges were made over the [employer] guidewire. A 5-Prydeinig JR5 was used to engage the right coronary artery. A 5-Prydeinig JL3.5 was used to engage the left [...] Arango M.D. Date Trans: 03/30/2020 01:43 P/mmo [id number] Normal [facility] MAGNESIUM BLOODon 03-30-2020 Magnesium [Mass/Vol] 2.1 mg/dL Normal 1.9-2.7 [facility] Comment on above: Order Comment: No: D o not add to previous draw Performed By: #### 1 0070, 24590 #### [facility] [address] [facility]. [address] POC GLUCOSE LABon 03-30-2020 Glucose [Mass/Vol] 94 mg/dL Normal 70-100 The [facility] Comment on above: Performed By: #### 8 5499 ####[facility] [facility] Glucose [Mass/Vol] 95 mg/dL Normal 70-100 The [facility] Comment on above: Performed By: #### 3 5200 #### [facility] [address] [facility] [place] [address], [facility] Glucose [Mass/Vol] 86 mg/dL Normal 70-100 The [facility] Comment on above: Performed By: #### 8 5499 ####[facility] PROTHROMBIN TIMEon 0 INR Coag (PPP) [Relative time] 1.88 {INR} High 0.91-1.16 The [facility] Comment on above: Order Comment: Yes: [...] 1995;108:231S-246S. Performed By: #### 8 5499 #### [facility] [address] PT Coag (PPP) [Time] 21.7 s High 12.3-14.8 [facility] Comment on above: Order Comment: Yes: Add to Previous draw if able Result Comment: ALL RESULTS MUST BE INTERPRETED WITH RESPECT TO BLOOD DRAWING ARTIFACT OR DILUTION ERROR OF ANTICOAGULANT AT THE TIME OF SAMPLING. Performed By: #### 8 [id number] #### [facility] [address] [facility]. [address] *SARS-CoV-2 COVID-19on 03-29 SARS-CoV-2 (COVID-19) RNA JAS+probe Ql (Unsp spec) Not detected Normal Not Detected [facility] Comment on above: Order Comment: The A ptima SARS-CoV-2 assay is a nucleic acid amplification test intended for the qualitative detection of RNA from SARS-CoV-2 isolated and purified from nasopharyngeal (CORPORATE DIRECTOR TALENT ASSESSMENT),oropharyngeal (OP), nasal swab, sputum, and bronchoalveolar lavage (BAL) specimens from patients with signs and symptoms of infection who are suspected of COVID-19. Results are for the identification of SARS-CoV-2 RNA. The SARS-CoV-2 RNA is generally detectable during the acute phase of infection. The Aptima SARS-CoV-2 Assay on the [employer] and [employer] system is intended for use by laboratory personnel specifically instructed and trained in the operation of the [employer] [place] [employer] system. The Aptima SARS-CoV-2 assay is [...] information. Performed By: #### 3 1792 #### [address] APTTon 03-29-2020 aPTT Coag (Bld) [Time] 52.2 s High 25.0-35.0 [facility] Comment on above: Order Comment: No: [...] >0.10 Performed By: #### 8 5499 #### [address] CBC W/DIFFon 03-29-2020 ABS IMM GRANS 0.0 10*3/uL Normal 0.0-0.2 The [facility] Comment on above: Order Comment: No: D o not add to previous draw Performed By: #### 8 5499 #### [address] ABS NEUTROPHILS 7.5 10*3/uL Normal 1.6-7.6 The [facility] Comment on above: Order Comment: No: D o not add to previous draw Performed By: #### 8 5499 #### [address] Basophils (Bld) [#/Vol] 0.1 10*3/uL Normal 0.0-0.2 [facility] Comment on above: Order Comment: No: D o not add to previous draw Performed By: #### 8 5499 #### [facility] [address] [place] [address], [facility] Basophils/100 WBC (Bld) 0.6 % Normal 0.0-1.0 [facility] Comment on above: Order Comment: No: D o not add to previous draw Performed By: #### 8 5499 #### [facility] [address] [place] [address], [place] Eosinophils (Bld) [#/Vol] 0.3 10*3/uL Normal 0.0-0.5 [facility] Comment on above: Order Comment: No: D o not add to previous draw Performed By: #### 8 5499 #### [facility] [address] [place] [address], [facility] Eosinophils/100 WBC (Bld) 2.1 % Normal 0.0-6.0 [facility] Comment on above: Order Comment: No: D o not add to previous draw Performed By: #### 8 5499 #### [facility] [address] [place] [address], [facility] Erythrocyte distribution width (RBC) [Ratio] 14.7 % Normal 11.5-15.0 [facility] Comment on above: Order Comment: No: D o not add to previous draw Performed By: #### 8 5499 #### [facility] [address] [place] [address], [facility] Hematocrit (Bld) [Volume fraction] 48.0 % High 36.0-45.0 [facility] Comment on above: Order Comment: No: D o not add to previous draw Performed By: #### 8 5499 #### [facility] [address] [place] [address], [facility] Hemoglobin (Bld) [Mass/Vol] 15.5 g/dL High 12.0-15.0 [facility] Comment on above: Order Comment: No: D o not add to previous draw Performed By: #### 8 5499 #### [facility] [address] [place] [address], [facility] IMMATURE GRANS 0.3 % Normal 0.0-1.0 The [facility] Comment on above: Order Comment: No: D o not add to previous draw Performed By: #### 8 5499 #### [facility] [address] [place] [id number], [facility] Lymphocytes (Bld) [#/Vol] 3.7 10*3/uL Normal 1.2-4.0 [facility] Comment on above: Order Comment: No: D o not add to previous draw Performed By: #### 8 5499 #### [facility] [address] [place] [address], [facility] Lymphocytes/100 WBC (Bld) 29.6 % Normal 20.0-45.0 [facility] Comment on above: Order Comment: No: D o not add to previous draw Performed By: #### 8 5499 #### [facility] [address] [facility] [place] [address], [facility] MCH (RBC) [Entitic mass] 28.8 pg Normal 27.0-33.0 [facility] Comment on above: Order Comment: No: D o not add to previous draw Performed By: #### 8 5499 #### [facility] [address] [facility] [place] [id number], [facility] MCHC (RBC) [Mass/Vol] 32.3 g/dL Normal 32.0-35.0 [facility] Comment on above: Order Comment: No: D o not add to previous draw Performed By: #### 8 5499 #### [facility] [address] [place] [id number], [facility] MCV (RBC) [Entitic vol] 89.1 fL Normal 82.0-98.0 [facility] Comment on above: Order Comment: No: D o not add to previous draw Performed By: #### 8 5499 #### [facility] [address] [place] [address], [facility] Monocytes (Bld) [#/Vol] 0.9 10*3/uL Normal 0.1-1.0 [facility] Comment on above: Order Comment: No: D o not add to previous draw Performed By: #### 8 5499 #### [facility] [address] [place] [address], [place] MONOS 7.2 % Normal 5.0-12.0 [facility] Comment on above: Order Comment: No: D o not add to previous draw Performed By: #### 8 5499 #### [facility] [address] [place] [address], [facility] Neutrophils/100 WBC (Bld) 60.2 % Normal 40.0-72.0 [facility] Comment on above: Order Comment: No: D o not add to previous draw Performed By: #### 8 5499 #### [facility] [address] [place] [id number], [facility] Nucleated RBC/100 WBC (Bld) [Ratio] 0 % Normal 0-0 [facility] Comment on above: Order Comment: No: D o not add to previous draw Performed By: #### 8 5499 #### [facility] [address] [place] [address], [place] PLAT CNT 366 10*3/uL Normal 150-400 The [facility] Comment on above: Order Comment: No: D o not add to previous draw Performed By: #### 8 5499 #### [facility] [address] [place] [id number], [place] RBC (Bld) [#/Vol] 5.39 10*6/uL High 3.80-5.00 [facility] Comment on above: Order Comment: No: D o not add to previous draw Performed By: #### 8 5499 #### [facility] [address] [place] [address], [facility] WBC (Bld) [#/Vol] 12.38 10*3/uL High 4.00-10.[address] [facility] Comment on above: Order Comment: No: D o not add to previous draw Performed By: #### 8 5499 #### [facility] [address] [place] [address], [place] COMP METABOLIC PANELon 03-29 Albumin [Mass/Vol] 4.1 g/dL Normal 3.5-5.7 [facility] Comment on above: Order Comment: No: D o not add to previous draw Performed By: #### 1 0070, 46922 #### [facility] [address] [place] [address], [facility] ALKALINE PHOSPH 48 IU/L Normal 34-104 The [facility] Comment on above: Order Comment: No: D o not add to previous draw Performed By: #### 1 0070, 44063 #### [facility] [address] [place] [address], [place] ALT [Catalytic activity/Vol] 19 U/L Normal 7-52 [facility] Comment on above: Order Comment: No: D o not add to previous draw Performed By: #### 1 0070, 78786 #### [facility] [address] [place] [address], [place] AST [Catalytic activity/Vol] 19 U/L Normal 13-39 [facility] Comment on above: Order Comment: No: D o not add to previous draw Performed By: #### 1 0070, 40465 #### [facility] [address] [place] [address], [place] Bilirubin [Mass/Vol] 0.8 mg/dL Normal 0.3-1.0 [facility] Comment on above: Order Comment: No: D o not add to previous draw Performed By: #### 1 0070, 88639 #### [facility] [address] [place] [address], [place] Calcium [Mass/Vol] 9.8 mg/dL Normal 8.6-10.3 [facility] Comment on above: Order Comment: No: D o not add to previous draw Performed By: #### 1 0, 98141 #### [facility] [address] [place] [address], [place] Chloride [Moles/Vol] 100 mmol/L Normal 98-107 [facility] Comment on above: Order Comment: No: D o not add to previous draw Performed By: #### 1 0, 67228 #### [facility] [address] [place] [address], [place] CO2 [Moles/Vol] 26 mmol/L Normal 21-31 [facility] Comment on above: Order Comment: No: D o not add to previous draw Performed By: #### 1 69, 99826 #### [facility] [address] [place] [address], [place] Creatinine [Mass/Vol] 0.71 mg/dL Normal 0.60-1.20 [facility] Comment on above: Order Comment: No: D o not add to previous draw Performed By: #### 1 69, 91254 #### [facility] [address] [place] [address], [place] GFR/1.73 sq M.predicted among blacks MDRD (S/P/Bld) [Vol rate/Area] mL/min/{1.73_m2} Normal >60 [facility] Comment on above: Order Comment: No: D o not add to previous draw Performed By: #### 1 69, 07781 #### [facility] [address] [place] [address], [place] GFR/1.73 sq M.predicted among non-blacks MDRD (S/P/Bld) [Vol rate/Area] mL/min/{1.73_m2} Normal >60 [facility] Comment on above: Order Comment: No: D o not add to previous draw Performed By: #### 1 0, 05199 #### [facility] [address] [place] [address], [place] Glucose [Mass/Vol] 107 mg/dL High 70-100 The [facility] Comment on above: Order Comment: No: D o not add to previous draw Performed By: #### 1 69, 47826 #### [facility] [address] [place] [address], [place] Potassium [Moles/Vol] 3.9 mmol/L Normal 3.5-5.1 [facility] Comment on above: Order Comment: No: D o not add to previous draw Performed By: #### 1 69, 05920 #### [facility] [address] [place] [address], [place] Protein [Mass/Vol] 7.5 g/dL Normal 6.0-8.3 The [facility] Comment on above: Order Comment: No: D o not add to previous draw Performed By: #### 1 69, 47985 #### [facility] [address] [place] [address], [place] Sodium [Moles/Vol] 136 mmol/L Normal 136-145 The [facility] Comment on above: Order Comment: No: D o not add to previous draw Performed By: #### 1 69, 83790 #### [facility] [address] [place] [address], [place] Urea nitrogen [Mass/Vol] 12 mg/dL Normal 7-25 [facility] Comment on above: Order Comment: No: D o not add to previous draw Performed By: #### 1 69, 16001 #### [facility] [address] [place] [address], [place] D DIMER TESTon 03-29-2020 D-DIMER TEST <0.27 Low 0.27-0.49 The [facility] Comment on above: Order Comment: No: D o not add to previous draw Result Comment: D-Di elisa values of less than 0.50 ug/ml (FEU) are considered to be a negative predictor of thrombosis. However, the D-Dimer result should be used in conjunction with pretest probability and should not be used alone to diagnose a thrombotic event. Performed By: #### 1 0070, 01248 #### [facility] [address] HEMOGLOBIN A1Con 03-29-2020 Glucose [Moles/Vol] 111 mmol/L Normal [facility] Comment on above: Order Comment: No: D o not add to previous draw Performed By: #### 3 1791 #### [facility] [address] HbA1c (Bld) [Mass fraction] 5.5 % Normal 4.0-6.0 [facility] Comment on above: Order Comment: No: D o not add to previous draw Performed By: #### 3 1791 #### [facility] [address] [facility] [address] MAGNESIUM BLOODon 03-29-2020 Magnesium [Mass/Vol] 2.0 mg/dL Normal 1.9-2.7 [facility] Comment on above: Order Comment: No: D o not add to previous draw Performed By: #### 1 0070, 46975 #### [facility] [address] [facility] [address] PROTHROMBIN TIMEon 0 INR Coag (PPP) [Relative time] 1.84 {INR} High 0.91-1.16 [facility] Comment on above: Order Comment: No: [...] 1995;108:231S-246S. Performed By: #### 8 5499 #### [facility] [address] PT Coag (PPP) [Time] 21.3 s High 12.3-14.[address] [facility] Comment on above: Order Comment: No: D o not add to previous draw Result Comment: ALL RESULTS MUST BE INTERPRETED WITH RESPECT TO BLOOD DRAWING ARTIFACT OR DILUTION ERROR OF ANTICOAGULANT AT THE TIME OF SAMPLING. Performed By: #### 8 5499 #### [facility] [address] [facility]. [address] TROPONIN-Ion 03-29-2020 Troponin I.cardiac [Mass/Vol] 0.00 ng/mL Normal 0.00-0.[address] [facility] Comment on above: Order Comment: No: D o not add to previous draw Result Comment: REFE RENCE RANGES: 0.00 - 0.14 ng/ml NEGATIVE 0.15 - 0.25 ng/ml INDETERMINATE > 0.25 ng/ml INDICATIVE OF AN M.I. Performed By: #### 1 0070, 93833 #### [facility] [address] TSH3on 03-29-2020 TSH 3RD GENERATION 3.72 uIU/mL Normal 0.34-5.60 [facility] Comment on above: Order Comment: No: D o not add to previous draw Performed By: #### 1 0070, 50560 #### [facility] [address] Vital Signs Date Time Vital Sign Value Performing Clinician Alok bolivar 06-18-2023 09:43-0500 Diastolic blood pressure 101 mm[Hg] Harleen Ly DO Work Phone: [facility] 06-18-2023 09:43-0500 Respiratory rate 16 /min Harleen Ly DO Work Phone: [facility] 06-18-2023 09:43-0500 SaO2% (BldA) [Mass fraction] 97 % Harleen Ly DO Work Phone: [facility] 06-18-2023 09:43-0500 Systolic blood pressure 161 mm[Hg] Harleen Ly DO Work Phone: [facility] 06-18-2023 09:23-0500 Body temperature 97 [degF] Harleen Ly DO Work Phone: [facility] 06-18-2023 07:49-0500 Body height 172.7 cm Harleen Ly DO Work Phone: [facility] 06-18-2023 07:49-0500 Body weight 144.7 kg Harleen Ly DO Work Phone: [facility] 04-29-2023 11:43-0500 Body weight 144.7 kg Harleen Ly DO Work Phone: [facility] 04-29-2023 11:43-0500 Diastolic blood pressure 80 mm[Hg] Harleen Ly DO Work Phone: [facility] 04-29-2023 11:43-0500 Heart rate 78 /min Harleen Ly DO Work Phone: [facility] 04-29-2023 11:43-0500 Systolic blood pressure 140 mm[Hg] Harleen Ly DO Work Phone: [facility] 04-03-2023 07:55-0500 Body height 172.72 cm Kaila Aichholz Work Phone: [facility] 04-03-2023 07:55-0500 Body weight 143.33 kg Kaila Angelita Work Phone: [facility] Encounters Encounter Date Encounter Type Care Provider Facility Start: 06-24-2023 Orders Only Kaila Goldstein CORPORATE DIRECTOR TALENT ASSESSMENT Work Phone: [facility] Comment on above: Multiple lung nodule s (Primary Dx) Start: 06-23-2023 Telephone encounter Harleen Jones DO Work Phone: Gastroenterology Comment on above: Results Start: 06-18-2023 ambulatory YANN ROHINIROSITA Yobanyi ty:[facility] Start: 06-18-2023 End: 06-18-2023 Subsequent hospital visit by physician Harleen Jones DO Work Phone: Procedures Comment on above: History of colon marcelo yps [Z86.010] Start: 06-12-2023 End: 06-12-2023 ambulatory UMAIR [facility] Start: 05-04-2023 End: 05-04-2023 ambulatory KAILA GOLDSTEIN Not Available Start: 04-29-2023 End: 04-29-2023 ambulatory HARLEEN LY Facility:[facility] Start: 04-29-2023 End: 04-29-2023 Patient encounter procedure Harleen Ly DO Work Phone: Gastroenterology Comment on above: History of colon marcelo yps (Primary Dx) Start: 04-21-2023 Telephone encounter Carmen Jacob MD Work Phone: Gastroenterology Comment on above: Appointment Start: 04-03-2023 End: 04-03-2023 ambulatory Kaila Goldstein Facility:[facility] Start: 04-03-2023 End: 04-03-2023 ambulatory Kaila Goldstein Work Phone: [facility] Work Phone: Start: 04-03-2023 End: 04-03-2023 Patient encounter procedure Kaila Gomesreinajosi Work Phone: [facility] Work Phone: Start: 03-13-2023 ambulatory Facility:[facility] Start: 12-03-2022 End: 12-03-2022 ambulatory EDWINA [facility] Start: 09-15-2022 End: 09-16-2022 ambulatory SKIVING MACHINE OPERATOR KAILA AICHHOLZ Facility: Start: 05-01-2022 End: 05-01-2022 ambulatory SKIVING MACHINE OPERATOR KAILA AICHHOLZ Facility:[facility] Start: 03-13-2022 End: 03-14-2022 ambulatory SKIVING MACHINE OPERATOR KAILA AICHHOLZ Facility: Start: 11-02-2020 End: 11-03-2020 ambulatory KAILA AICHHOLZ Facility:[facility] Start: 07-26-2020 End: 07-27-2020 ambulatory KAILA JOSHUAHOLZ Facility:[facility] Start: 04-16-2020 End: 04-23-2020 Evaluation and management of inpatient LULU DEE Facility:[facility] Start: 03-29-2020 End: 04-01-2020 Evaluation and management of inpatient YINA MAKI Facility:[facility] Procedures Date Procedure Procedure Detail Performing Clinician Start: 06-18-2023 Colonoscopy flx dx w /collj spec when pfrmd Harleen Ly DO Work Phone: Start: 06-18-2023 Gluc bld gluc mntr d ev cleared fda spec home use Yann Kuhn MD Work Phone: Start: 06-18-2023 Colonoscopy Harleen Ly DO Work Phone: Start: 04-03-2023 Positron emission tomography with computed tomography Kaila Angelita Work Phone: Start: 03-18-2023 Mammography Kaila Marlee jin CORPORATE DIRECTOR TALENT ASSESSMENT Work Phone: Start: 11-02-2020 Colonoscopy w/biopsy single/multiple [...] Screening for malign ant neoplasm of colon [facility] Start: 08-16-2024 Glaucoma screening Diabetes: R etinopathy Screening [facility] Start: 06-18-2024 Screening for malign ant neoplasm of colon [facility] Start: 03-18-2024 Screening for malign ant neoplasm of breast Mammogram [facility] Start: 12-10-2023 Medicare Annual Well ness (AWV) Medicare Annual Wellness (AWV) [facility] Start: 11-15-2023 Influenza vaccination Influenza Vacc ine (#1) [facility] Comment on above: Postponed from 01/16 (Patient Refused) Start: 09-16-2023 Urine screening for protein Diabetes: Urine Protein Screening [facility] Start: 08-17-2023 Pneumococcal Vaccine : 65+ Years (1 - PCV) Pneumococcal Vaccine: 65+ Years (1 - PCV) [facility] Comment on above: Postponed from 09/29 (Other Medical Reasons) Start: 08-04-2023 End: 08-04-2023 Patient encounter procedure 08/04/2023 8:40 AM EDT Office Visit [facility] [address] [place] [id number] Kaila Goldstein NP [address] [place] [address] [facility] Start: 06-24-2023 End: 06-24-2024 CT Chest WO contrast CT chest wo IV contrast Imaging Routine Multiple lung nodules Expected: 06/24/2023 (Approximate), Expires: 06/24/2024 [facility] Work Phone: Comment on above: Expected: 06/24/2023 (Approximate), Expires: 06/24/2024 Start: 05-18-2023 [facility] Directive Discussion Advance Directive Discussion [facility] Start: 05-18-2023 Depression Assessment Depression Ass essment [facility] Start: 01-16-2023 Covid-19 Vaccine ( season) Covid-19 Vaccine ( season) [facility] Start: 01-16-2023 Influenza vaccination Influenza Vacc ine (#1) [facility] Start: 05-18-2022 Advance Directive Discussion Advance Directive Discussion [facility] Start: 05-18-2022 Depression Assessment [facility] Start: 11-02-2021 Screening for malign ant neoplasm of colon [facility] Start: 2021 Bone Density Screening Bone Density Screening [facility] Start: 2021 Pneumococcal Vaccine : 65+ (1 - PCV) Pneumococcal Vaccine: 65+ (1 - PCV) [facility] Start: 2021 Screening for osteoporosis Bone Density Screening [facility] Start: 2016 RSV Vaccine (1 - 1-d ose 60+ series) RSV Vaccine (1 - 1-dose 60+ series) [facility] Start: 2006 Shingrix Vaccine (1 of 2) Shingrix Vaccine (1 of 2) [facility] Start: 2001 Cologuard (FIT-DNA) Cologuard (FIT-D NA) [facility] Start: 2001 Colonoscopy Colonoscopy [facility] Start: 2001 Colorectal Cancer Screening Colorectal Cancer Screening [facility] Start: [address] Colonography [facility] Start: 2001 Diabetes Screening Diabetes Screenin g [facility] Start: 2001 Fecal Occult Blood Fecal Occult Bloo d [facility] Start: 2001 Lipid 1996 panel - S norma or Plasma Lipid Screening [facility] Start: 2001 Lipid panel Lipid Screening [facility] Start: 2001 Screening for malign ant neoplasm of colon [facility] Start: 2001 Sigmoidoscopy Sigmoidoscopy [facility] Start: 1996 Mammography Mammogram Screening [facility] Start: 1996 Screening for malign ant neoplasm of breast Mammogram Screening [facility] Start: 09-30-1975 Urine microalbumin profile DTaP,Tdap,Td Vaccine (1 - Tdap) [facility] Start: 1974 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 Annual PCP Team Chronic Disease Visit [facility] Start: 1974 BP Controlled (<130/80) BP Controlle d (<130/80) [facility] Start: 1974 Hepatitis C Screening Hepatitis C [facility] Start: 1974 Hepatitis C screening Hepatitis C [facility] Start: 1962 Pneumococcal Vaccine : 65+ (1 of 2 - PCV) Pneumococcal Vaccine: 65+ (1 of 2 - PCV) [facility] Start: 04-01-1957 Covid-19 Vaccine (#1) Covid-19 Vacci ne (#1) [facility] Start: 1956 Hemoglobin A1c measurement Diabetes: Hemoglobin A1C [facility] Start: 1955 Screening for malign ant neoplasm of colon [facility] End: 04-29-2024 Screening colonoscopy COLONOSCOPY SCREENING Endoscopy Routine History of colon polyps 1 Occurrences starting 04/29/2023 until 04/29/2024 [facility] Work Phone: Comment on above: 1 Occurrences starti ng 04/29/2023 until 04/29/2024 SURGICAL PATHOLOGY [facility] Work Phone: Comment on above: Release Upon Neriin g for 1 Occurrences starting 06/18/2023, 1 completed [facility] Immunizations Immunization Date Immunization Notes Care Provider Yonas beltran 11-10-2022 zoster vaccine recombinant Kaila Torstenz CORPORATE DIRECTOR TALENT ASSESSMENT Work Phone: [facility] 05-21-2022 zoster vaccine recombinant Kaila Aichholz CORPORATE DIRECTOR TALENT ASSESSMENT Work Phone: [facility] Payers Date Payer Category Payer Self-pay 2022 Medicare [employer] [place] HMO [id number] 2022-Present [phone] [address] [place]ER [id number] O [id number] 2022 Unknown [employer] D [employer] [id number] 2022-Present [address] [place] [address] [id number] 2020 Unknown [id number] 1959 Medicare [id number] 1955 Unknown [id number] 1955 Unknown [id number] 1955 Unknown [id number] 1956 Unknown [id number] 1955 Unknown [id number] 1956 Unknown [id number] 1956 Unknown [id number] 1955 Unknown [id number] Unknown [id number] Unknown [id number] Social History Date Type Detail Facility Tobacco smoking stat [facility] Unknown if ever smoked [facility] Work Phone: Start: 1955 Sex Assigned At Female F [facility] Tobacco smoking stat [facility] Tobacco smoking consumption unknown [facility] Start: 1955 Sex Assigned At Not on file [facility] Start: 04-29-2023 End: 05-04-2023 Gender identity Not on file [facility] Start: 04-29-2023 End: 05-03-2023 Tobacco smoking status NHIS Ex-smoker [facility] Start: 05-18-1975 End: 05-18-2007 History of tobacco use Current smoker [facility] Start: 05-18-1975 End: 05-18-2007 History of tobacco use Cigarette Smoker [facility] Start: 04-29-2023 End: 05-04-2023 Cigarettes smoked current (pack per day) - Reported 1.5 [facility] Start: 04-29-2023 Tobacco use and exposure Smokeless tobacco non-user [facility] National Score (1-10 0), lower number is lower risk 91 [facility] Start: 05-04-2023 Alcohol intake Ex-drinker (finding) [facility] Start: 05-03-2023 Tobacco Comment Last smoked -15 ye ars [facility] Start: 05-03-2023 Alcohol Comment caffeine:soda [facility] Equipment Procedure Code Equipment Code Equipment Origin al Text Equipment Identifier Dates Use as instructed [id number] Start: 05-22-2023 End: 05-21-2024 1 each 3 (three) times a day as needed (3 times daily prn) [id number] Start: 05-22-2023 Clinical Notes 04-01-2020 to 06-24-2023 Kaila Goldstein NP - 06/24/2023 10:52 AM ESTTelephone Encounter - Windy Dickson Ma - 06/23/2023 2:34 PM ESTTelephone Encounter - Sara Do RN - 06/23/2023 10:21 AM ESTPatient Instructions Note Date & Type Note Facility 06-24-2023 History of Presen t illness Narrative Due for fu CT chest 3 month for lung nodules documented in this encounter [facility] 06-23-2023 Miscellaneous Notes Recall entered Left voice [...] yrs. Thanks cl documented in this encounter [facility] 06-18-2023 History and physical note HISTORY [...] Harleen Jones DO documented in this encounter [facility] 06-12-2023 Note Continue statin- lip itor 10 mg daily [facility] 06-12-2023 Note Hypertension is stab le b/p 136/83 continue losartan, aldactone, and toprl [facility] 06-12-2023 Note RCRI 0???points Class I Risk 3.9???% 30-day risk of , PA, or cardiac arrest From a cardiac perspective pt may proceed with colonoscopy, she is a low risk for a low risk procedure. She may hold elquis for 2-3 days prior and resume post op, with the knowledge that there is a risk for stroke with holding anticoagulation. Please monitor hemodynamics carefully and prevent any major fluid shifts. [facility] 06-12-2023 Note UTP CARDIOLOGY PROGR ESS [...] are negative Previous HPI per S Witherall CORPORATE DIRECTOR TALENT ASSESSMENT HPI Hortensia Bates is a 66 y.o. [...] normal LA f (more content not included)... [facility] 06-12-2023 Note Patient here for 6 m o follow up persistent afib, hypertension, and hyperlipidemia. She denies chest pain, SOB, lightheadedness/syncope, palpitations, and bleeding on Eliquis. She is scheduled for colonoscopy on 06/18 with [facility] and needs permission to hold Eliquis. Review of Systems Cardiovascular: Positive for leg swelling (minimal, resolves by morning). All other systems reviewed and are negative. [facility] 06-12-2023 Note [id number] VASc= 4 Continue anticoagulation with eliquis- will need to hold 2-3 days for colonoscopy Monitor for s/s of bleeding Continue toprol, rate controlled and remains in NSR [facility] 04-29-2023 Note HNO ID: [id number] Author: Harleen Jones DO Service: ? Author Type: Physician Type: Progress Notes Filed: 04/29/2023 12:49 PM Note Text: Chief Compliant: Consultation requested by Dr. Kaila Goldstein, CERTIFIED MEDICAL ASSISTANT.SKIVING MACHINE OPERATOR for an opinion regarding hx of colon [...] other GI malignancy. No records available in [employer] or [employer] regarding this office visit. ALLERGIES Allergen Reactions [...] from her prior colonoscopy -schedule colonoscopy at [place]. 2 day bowel p (more content not included)... [facility] 04-29-2023 History of Presen t illness Narrative Chief Compliant: Consultation requested by Dr. Kaila Goldstein, ALONDRA for an opinion regarding hx of colon [...] other GI malignancy. No records available in [employer] or [employer] regarding this office visit. ALLERGIES Allergen Reactions [...] from her prior colonoscopy -schedule colonoscopy at [place]. 2 day bowel prep. Procedure/risks were discussed with the patient in great detail including but not limited to the risk of sedation, bleeding, perforation, infection, and missed lesions. Patient agreed to proceed. -fiber rich diet Harleen Jones DO Follow Up: No follow-ups on file. documented in this encounter [facility] 04-29-2023 Instructions Harleen Jones DO - [...] If you do not have a responsible non cdl driver (family member or friend) with you to take you home, your exam cannot be done with sedation and will be cancelled. Please bring a list of all of your current medications, including any Meck-shu-Bopddlt medications with you. Medications If you take [...] exam. 2 04/2019 documented in this encounter [facility] 04-21-2023 Miscellaneous Notes Pt's VM is full and there is no active MC Cannot inform pt 05/28 appt w/Kristel was canceled If pt calls back an attempt was made to contact her Frandy Dumont 04/21/23 documented in this encounter [facility] 12-03-2022 Note Cardiology Clinic No te [...] Left Atrium appen (more content not included)... [facility] 04-23-2020 Note MR#: [id number] [facility] Pt. Name: Hortensia Bates Admitted: 04/15/2020 [...] to the patient being on anticoagulation and huqfhlvs-th-tdraow sigmoid diverticulosis. Subsequently, pathology report came back [...] snare measured 3 mm and 5 mm. Hgvwteav-gf-rqoxmf sigmoid diverticulosis. Again, the patient was admitted [...] Negro MD Date Trans: 04/23/2020 02:52 P/mmo [id number] [facility] 04-01-2020 Note MR#: [id number] [facility] Pt. Name: Hortensia Bates Admitted: 03/29/2020 [...] Gonzalez MD Date Trans: 04/01/2020 12:25 P/mmo [id number] [facility] Evaluation note No assessment inform ation available [facility] Work Phone: Evaluation note Diagnosis History of colon polyps- Primary Personal history of colonic polyps [facility] Diagnosis Chronic atrial fibrillation (HCC)- Primary Atrial fibrillation History of colon polyps Personal history of colonic polyps Primary hypertension Unspecified essential hypertension Class 3 obesity (HCC) [facility] Diagnosis Multiple lung nodules- Primary Other diseases of lung, not elsewhere classified [facility] Outpatient Procedure (Routine) - Pending Review Specialty Diagnoses / Procedures Referred By Contac t Referred To Contact [facility] Diagnoses History of colon polyps Procedures COLONOSCOPY SCREENING COLONOSCOPY FLX DX W/COLLJ [place] [address] [place] [address] [facility] [address] [place] [address] Referral ID Status Reason Start Date Expiration Date Visits Requested Visits Authorized [id number] Pending Review Auto-Generat ed Referral 1204/29/2024 1 1 [facility] for referral (narrative)* Outpatient Procedure (Routine) - Closed Specialty Diagnoses / Procedures Referred By Masoud simms Referred To Contact [facility] Diagnoses History of colon polyps Procedures COLONOSCOPY SCREENING COLONOSCOPY FLX DX W/COLLJ [place] [address] [place] [address] [address] Referral ID Status Reason Start Date Expiration Date V isits Requested Visits Authorized [id number] Closed Auto-Generate d Referral 06/05/2023 05/17/2024 1 1 [facility] for visit Narrative* Outpatient Procedure (Routine) - Closed Specialty Diagnoses / Procedures Referred By Masoud simms Referred To Contact [facility] Diagnoses History of colon polyps Procedures COLONOSCOPY SCREENING COLONOSCOPY FLX DX W/COLLJ [place] [address] [place] [address] [address] Referral ID Status Reason Start Date Expiration Date V isits Requested Visits Authorized [id number] Closed Auto-Generate d Referral 06/05/2023 05/17/2024 1 1 [facility] Summary Purpose Family History No Family [...] Referral Specialty Diagnoses / Procedures Referred By Masoud simms Referred To Contact Diagnoses Multiple lung nodules Procedures CT chest wo IV contrast Kaila Goldstein, ANA [address] [place] [address] Referral ID Status Reason Start Date Expiration Date V isits Requested Visits Authorized [id number] Authorized 06/24/2023 12/21/2023 1 1 Additional Source Comments INFORMATION SOURCE (unrecogn ized section and content) DATE CREATED AUTHOR 11/07/2020 [facility] DATE CREATED AUTHOR AUTHOR'S ORGANIZ ATION 09/19/2022 [facility] DATE CREATED AUTHOR AUTHOR'S ORGANIZ ATION 03/15/2023 [facility] DATE CREATED AUTHOR AUTHOR'S ORGANIZ ATION 04/11/2023 [facility] DATE CREATED AUTHOR AUTHOR'S ORGANIZ ATION 05/04/2023 [facility] DATE CREATED AUTHOR AUTHOR'S ORGANIZ ATION 06/13/2023 [facility] DATE CREATED AUTHOR AUTHOR'S ORGANIZ ATION 06/22/2023 [facility] DATE CREATED AUTHOR AUTHOR'S ORGANIZ ATION 06/24/2023 [facility] Care Teams (unrecognized sec tion and content) Team Status: Active Member Role Status Dates Kaila Goldstein Primary Care Provider Active Team Status: Inactive Member Role Status Dates Kaila Goldstein Primary Care Provider, Attending Provi [email or web address] Active Co Founder & Ceo Relationship Specialty Start Date End Date Kaila Goldstein CNP [address] [place] [address] PCP - General Family Medicine 03/24/23 Co Founder & Ceo Relationship Specialty Start Date End Date Kaila Goldstein CNP [address] [place] [address] PCP - General Family Medicine 03/24/23 Co Founder & Ceo Relationship Specialty Start Date End Date Kaila Goldstein CNP [address] [place] [address] PCP - General Family Medicine 03/24/23 Co Founder & Ceo Relationship Specialty Start Date End Date Kaila Goldstein CNP [address] [place] [address] PCP - General Family Medicine 03/24/23 Co Founder & Ceo Relationship Specialty Start Date End Date Quinn Antunez MD PCP - General Family Medicine 12/08/22 Quinn Antunez MD [address] [place] [id number] PCP - [facility] 02/15/23 Kaila Goldstein NP [address] [place] [id number] Referring Physician Nurse Practitioner 12/08/22 Goals (unrecognized [...] or prosecute any alcohol or drug abuse patient.[facility] the event this information is protected by the Federal Confidentiality of Alcohol and Drug Abuse Patient Records regulations: The Federal rules restrict any use of the information to criminally investigate or prosecute any alcohol or drug abuse patient.[facility] the event this information is protected by the Federal Confidentiality of Alcohol and Drug Abuse Patient Records regulations: The Federal rules restrict any use of the information to criminally investigate or prosecute any alcohol or drug abuse patient.[facility] the event this information is protected by the Federal Confidentiality of Alcohol and Drug Abuse Patient Records regulations: The Federal rules restrict any use of the information to criminally investigate or prosecute any alcohol or drug abuse patient.[facility] Reason for Visit (unrecogniz ed section and content) Reason Comments Appointment Reason Comments New Patient Colonoscopy with his tory of natacha Reason Comments Results Inactive Administered Medications - [...] BE BASED ON THE PRIMARY CLINICAL RECORDS. [facility] [employer] [facility]. provides no warranty or guarantee of the accuracy or completeness of information in this document.
[2023-08-19 08:20] LABS: Basophils Absolute Auto 0.1 10^3/uL (0.0-0.1); Basophils Percent Auto 0.7 % (0.2-2.0); Eosinophils Absolute Auto 0.2 10^3/uL (0.0-0.7); Eosinophils Percent Auto 2.2 % (0.9-7.0); Hematocrit 42.2 % (36.0-48.0); Hemoglobin 13.3 g/dL (12.0-16.0); Immature Granulocytes Abs Auto 0.05 10^3/uL (0.00-0.03); Immature Granulocytes Pct Auto 0.5 % (0.0-0.5); Lymphocytes Absolute Auto 3.4 10^3/uL (1.2-3.8); Lymphocytes Percent Auto 34.2 % (20.5-60.0); Mean Corpuscular HGB Conc 31.5 g/dL (29.9-35.2); Mean Corpuscular Hemoglobin 28.9 pg (26.7-34.0); Mean Corpuscular Volume 91.5 fL (81.0-99.0); Mean Platelet Volume 10.2 fL (9.5-13.5); Monocytes Absolute Auto 0.6 10^3/uL (0.3-0.8); Monocytes Percent Auto 6.1 % (1.7-12.0); Neutrophils Absolute Auto 5.6 10^3/uL (1.4-6.5); Neutrophils Percent Auto 56.3 % (43.0-75.0); Platelet Count 300 10^3/uL (150-450); Red Blood Count 4.61 10^6/uL (4.20-5.40); Red Cell Distribution Width 14.4 % (11.0-15.0)
[2023-08-19 08:28] LABS: Bilirubin Urine NEGATIVE (NEGATIVE); Blood Urine NEGATIVE (NEGATIVE); Clarity Urine CLEAR (CLEAR); Color Urine LT. YELLOW (YELLOW); Glucose Urine UA NEGATIVE (NEGATIVE); Ketones Urine NEGATIVE (NEGATIVE); Leukocyte Esterase Urine TRACE (NEGATIVE); Nitrite Urine NEGATIVE (NEGATIVE); Protein Urine NEGATIVE (NEG/TRACE); Specific Gravity Urine 1.025 (1.005-1.025); Urine Microscopic Indicated YES; Urobilinogen Urine 0.2 EU/dL (0.2-1.0); pH Urine 5.5 (5.0-9.0)
[2023-08-19 08:44] LABS: Bacteria Urine TRACE #/HPF (NONE SEEN); Cast Seen? NONE SEEN #/LPF (NONE SEEN); Crystals Seen? None Seen #/HPF (None Seen); Mucus Urine NONE SEEN (NONE SEEN); Squamous Epithelial Cell Urine FEW #/LPF (NONE/RARE)
[2023-08-19 08:50] LABS: Creatinine Urine Random 158.39 mg/dL (20.00-300.00); Microalbumin Urine Random <1.3 mg/dL (<=30.0)
[2023-08-19 08:58] LABS: Alanine Aminotransferase 26 U/L (14-59); Albumin Globulin Ratio 0.9; Albumin Level 3.4 g/dL (3.4-5.0); Alkaline Phosphatase 48 U/L (46-116); Anion Gap 13.3; Aspartate Amino Transferase 16 U/L (15-37); BUN Creatinine Ratio 19.6; Bilirubin Total 0.6 mg/dL (0.2-1.0); Carbon Dioxide 27.8 mmol/L (21.0-32.0); Chloride 103 mmol/L (98-107); Chol HDL Ratio 3.2; Cholesterol 151 mg/dL (<=200); Estimated GFR (African America >60 (>=60); Estimated GFR (Non-African Ame 57 (>=60); Globulin 3.8 g/dL; Glucose 111 mg/dL (74-106); HDL Cholesterol 47 mg/dL (40-60); Potassium 4.1 mmol/L (3.5-5.1); Sodium 140 mmol/L (136-145); Thyroid Stimulating Hormone 3.583 uIU/mL (0.358-3.740); Total Protein 7.2 g/dL (6.4-8.2); Triglycerides 105 mg/dL (<=150); Uric Acid 4.8 mg/dL (2.6-6.0)
[2023-08-19 09:29] LABS: Estimated Average Glucose 126 mg/dL
[2023-08-19 09:34] LABS: Free T4 0.99 ng/dL (0.76-1.46)
== END 2023-08-19 07:44 | disposition home or self-care (01) ==
LOC: LAB 07:46
PROVIDERS: PCP Nurse Practitioner; Visit Provider Nurse Practitioner
DX: E03.9 Hypothyroidism, unspecified (principal); E11.9 Type 2 diabetes mellitus without complications; M10.9 Gout, unspecified; I10 Essential (primary) hypertension
CPT/HCPCS: 36415; 80053; 80061; 81001; 82043; 82570; 83036; 84439; 84443; 84550; 85025

== ENCOUNTER 2023-10-01 12:53 | Outpatient (OUT) | payer OTHER, SELFPAY ==
--- NOTE | 2023-10-01 | CT_ITS ---
The [address] [address] Patient Name: HORTENSIA BATES MRN: [id number] date: 1955 Sex: F Assigned Patient Location: CT Current Patient Location: CT Accession/Order Number: [id number] Exam Date: 10/01/2023 13:05 Report Date: 10/01/2023 14:24 At the request of: SACHA BRAXTON Procedure: CT chest wo con EXAMINATION: CT chest wo con HISTORY: MULTIPLE LUNG NODULES, LUNG NODULE F/U EXAM COMPARISON: CT chest 06/30/2023, 03/18/2023 TECHNIQUE: Multi-planar CT images were obtained without and/or with IV contrast as indicated by examination type. Axial, Coronal, and Sagittal images. Dose reduction techniques were achieved by using automated exposure control and/or adjustment of mA and/or kV according to patient size and/or use of iterative reconstruction technique. FINDINGS: LUNGS: Stable appearance of a few small nodules scattered within the lungs, largest is within the right middle lobe, 8 mm. No new nodules. PLEURA: No mass, effusion, or pneumothorax. VASCULATURE: No abnormality. BRADLEY: No mass or adenopathy. MEDIASTINUM: No mass or adenopathy. CARDIAC: No enlargement, pericardial thickening, or significant calcification. Coronary artery calcifications: AORTA: No aneurysm or dissection. CHEST WALL: No mass or axillary adenopathy. BONES: No bone lesion or fracture. LIMITED ABDOMEN: No suspicious findings Limited images of the upper abdomen. OTHER: Negative. CT/CT chest wo con IMPRESSION: 1. Lung-RADS Category 3- Probably benign. Probably benign finding(s)- short term follow up suggested; includes nodules with a low likelihood of becoming a clinically active cancer. Six month LDCT. 2. If nodules remain stable in 6 months (one year since initial discovery) then return to annual screening. Electronically authenticated by: KACI CORTEZ Date: 10/01/2023 14:24
--- OUTSIDE RECORDS SUMMARY | 2023-10-01 13:12 | XMS_ITS | CCD ---
Author Organization [facility] Care Team Providers Care Catia Designer Name Role Phone AICHHOLZ, KAILA Referring Unavailable AICHHOLZ, KAILA Primary Care Unavailable [place] Procedure Practitioner Unavailab le ALASTAL, YASEEN Admitting Unavailable ALASTAL, YASEEN Attending Unavailable ALASTAL, YASEEN Surgeon Unavailable AICHHOLZ, KAILA Primary Care Unavailable AICHHOLZ, KAILA Referring Unavailable SULEIMAN SALAMANCA Admitting Unavailable SULEIMAN SALAMANCA Attending Unavailable SHANTHI, SARMED Admitting Unavailable SHANTHI, SARMED Attending Unavailable CHAY ARANGO Surgeon Unavailable AICHHOLZ, KAILA Primary Care Unavailable [place] Procedure Practitioner Unavailab JUAN Souza Referring Unavailable SHANTHI, SARMED Surgeon Unavailable [place] Procedure Practitioner Unavailab LULU Irizarry Referring Unavailable SHANTHI, SARMED Admitting Unavailable AICHHOLZ, KAILA Primary Care Unavailable MISAEL MCCOLLUM Attending Unavailable [place] Procedure Practitioner Unavailab le LIZZETTESTAL, YASEEN Surgeon Unavailable AICHHOLZ, LOAN SECRETARY KAILA Attending Unavailable AICHHOLZ, LOAN SECRETARY KAILA Consulting Unavailable AICHHOLZ, LOAN SECRETARY KAILA Primary Care Unavailable AICHHOLZ, LOAN SECRETARY KAILA Admitting Unavailable AICHHOLZ, LOAN SECRETARY KAILA Attending Unavailable AICHHOLZ, LOAN SECRETARY KAILA Consulting Unavailable AICHHOLZ, LOAN SECRETARY KAILA Primary Care Unavailable AICHHOLZ, LOAN SECRETARY KAILA Admitting Unavailable AICHHOLZ, LOAN SECRETARY KAILA Attending Unavailable AICHHOLZ, LOAN SECRETARY KAILA Consulting Unavailable AICHHOLZ, LOAN SECRETARY KAILA Primary Care Unavailable AICHHOLZ, LOAN SECRETARY KAILA Admitting Unavailable Angelita, Kaila J Primary Care Provider Kaila Goldstein Attending Provider Kaila Goldstein Attending Unavailable Aichholz, Kaila J Primary Care Unavailable Kaila Goldstein Admitting Unavailable Kaila Goldstein CNP Primary Care Provider [phone] EDWINA PRETTY Attending Unavailable UMAIR ENRIQUE Attending Unavailable YANN KUHN Attending Unavailable KAILA GOLDSTEIN Primary Care Unavailable KAREN, HARLEEN Referring Unavailable CARMELA MACDONALDE Attending Unavailable KAILA GOLDSTEIN Primary Care Unavailable Quinn Antunez MD Primary Care Provider Angelita PEREZ, Kaila Unavailable Quinn Antunez MD Unavailable KAILA GOLDSTEIN Attending Unavailable KAILA GOLDSTEIN Attending Unavailable Allergies Allergy Classification Reported Allergen(s) Allergy Type Date of Onset Reaction(s) Facility Unclassified (4 sources) Thiazides; Translations: [THIAZIDES] Drug allergy (disorder) 01-05-20 13 [facility] Repository (4 sources) Spironolactone; Translations: [SPIRONOLACTONE] Drug Allergy 04-29-20 23 [facility] (3 sources) Thiazides Drug Allergy 05-06-20 22 [facility] (1 source) fexofenadine Drug Allergy 05-06-20 22 [facility] (1 source) hydroCHLOROthiazide Drug Allergy 05-04-20 23 [facility] (1 source) Spironolactone Drug Allergy 05-01-20 23 [facility] (1 source) Thiazide-Type Diuretics Drug Allergy 05-04-20 23 [facility] Medications Current Medications Medication Drug Class(es) [...] complication, without long-term current use of insulin (CMS/[facility]) 1 kit 3 (three) times a day [...] Comment on above: Centrum polyethylene glycol [phone] mg / potassium chloride 2970 mg / sodium bicarbonate 6740 mg / sodium chloride 5860 mg / sodium sulfate 05892 mg powder for oral solution (1 source) [...] Test Name Value Interpretation Reference Range Facility [facility] 06-23-2023 FAROOQ Telephone (YE) HORTENSIA BATES ([id number]) 1955 F Date Time Provider Department 06/23/23 HARLEEN MACDONALD During your visit today, we recorded the following information about you: Sara Do RN 06/23/2023 10:21 AM Signed ----- Message from Harleen Macdonald DO sent at 06/22/2023 1:12 PM EST [...] (HCC) [E66.01] 06/18/2023 Encounter Status:Closed by WINDY CABA MA on 06/23/23 [facility] ANES POSTPROC EVALon 024 ANES POSTPROC EVAL HNO ID: [id number] Author: YANN KUHN MD Service: Anesthesiology Author Type: Physician Type: Anesthesia Postprocedure Evaluation Filed: 06/18/2023 09:58 Note Text: POST ANESTHESIA EVALUATION NOTE : 1955 Procedure Summary Date: 06/18/23 Room / Location: Procedures Anesthesia Start: 848 Anesthesia Stop: 918 Procedure: COLONOSCOPY SCREENING Diagnosis: History of colon polyps (High risk colon cancer surveillance: Personal history of colonic polyps) Scheduled Providers: Harleen Macdonald DO; Leona Rendon APRN.CRISIS MANAGER; Yann Kuhn MD; Abby Peoples RN Responsible Provider: Yann Kuhn MD Anesthesia Type: MAC ASA Status: 3 Anesthesia Type: MAC Last Vitals Vitals Value Taken Time BP 161/101 06/18/2343 Temp 36.1 ?C (97 ?F) 06/18/23 09 HR SpO2 77 06/18/23 0943 Resp 16 06/18/23 0943 SpO2 94 % 06/18/23942 Vitals shown include [...] June 18, 2023 TIME: 9:57 AM CSN: [id number] Psychiatric ANES PRE-OPon 06-18-2023 ANES PRE-OP HNO ID: [id number] Author: YANN KUHN MD Service: Anesthesiology Author Type: Physician Type: Anesthesia Preprocedure Evaluation Filed: 06/18/2023 08:20 Note Text: ANESTHESIOLOGY DAY OF SURGERY NOTE : 1955 Procedure Information Date/Time: 06/18/23 0900 Scheduled providers: Harleen Macdonald DO; Leona Rendon APRN.CRISIS MANAGER; Yann Kuhn MD; Abby Peoples RN Procedure: [...] June 18, 2023 TIME: 8:19 AM CSN: [id number] Normal [facility] COLONOSCOPY SCREENINGon [facility] Colonoscopyon 06-18-2023 Colonoscopy [facility] Gastrointestinal Endoscopy Patient Name: Hortensia Bates Procedure Date: 06/18/2023 8:48 AM Date of : 1955 Admit Type: Outpatient Age: 67 Room: [place] [address] Gender: Female Note Status: Finalized Attending MD: Harleen Macdonald DO, [id number] Procedure: Colonoscopy Indications: High risk colon cancer surveillance: Personal history of colonic polyps Providers: Harleen Macdonald DO Patient Profile: This is a 67 year old female. Refer to note in patient chart for documentation of history and physical. Last Colonoscopy: within the past year. Referring Physician: Harleen Macdonald DO (Referring MD) Medicines: See the Anesthesia [...] referring physician. Procedure Code(s): --- Professional --- 75548, Colonoscopy, flexible; with biopsy, single or multiple [...] or abscess without bleeding CPT copyright 2020 [employer]. All rights reserved. The codes documented in this report are preliminary and upon 4 h youth development specialist review may be revised to meet current compliance requirements. Attending Participation: I personally performed the entire procedure. Scope In: 8:53:53 AM Scope Out: 9:15:29 AM DO Harleen Hurd DO 06/18/2023 9:19:27 AM This report has been signed electronically by Harleen Macdonald DO Number of Addenda: 0 Note Initiated On: 06/18/2023 8:48 AM Estimated Blood Loss: Estimated blood loss was minimal. Normal [facility] GLUCOSE, BLOOD (POC)on 06-18 Glucose [Mass/Vol] 107 mg/dL Abnormal 74 - 99 mg/dL [facility] HISTORY PHYSICALon HISTORY PHYSICAL HNO ID: [id number] Author: HARLEEN MACDONALD DO Service: Gastroenterology Author Type: Physician Type: [...] Sedation Plan: MAC Additional Comments: None Harleen Macdonald DO Psychiatric SURGICAL PATHOLOGYon 024 CASE REPORT Psychiatric Comment on above: Order Comment: Speci men Type: TISSUE SPECIMEN Ordering Facility: [facility] Address: [facility] [place] [id number] Result Comment: Surg [facility] Pathology Report Case: [id number] Authorizing Provider: Harleen Macdonald DO Collected: 06/18/2023 08:59 AM Ordering Location: Procedures Received: 06/18/2023 09:31 AM Pathologist: Thi Delvalle MD, PhD Specimens: A) - CECUM POLYP B) - ASCENDING COLON POLYP C) - TRANSVERSE COLON POLYP D) - SIGMOID COLON POLYP E) - RECTAL BIOPSY Performed By: #### S #### [facility] CLIA [id number] [address] [place] [address] FINAL DIAGNOSIS Normal [facility] Comment on above: Order Comment: Speci men Type: TISSUE SPECIMEN Ordering Facility: [facility] Address: [address] [place] [address] Result Comment: A. C olon, cecum, polyp, [...] level examined. Performed By: #### S #### [facility] CLIA [id number] [address] [place] [address] OF [facility] FINAL PERFORMING LAB Normal [facility] Comment on above: Order Comment: Speci men Type: TISSUE SPECIMEN Ordering Facility: [facility] Address: [address] [place] [address] Result Comment: Diag nostic interpretation performed at [facility], [address] [place] [address] CLIA# [id number] Oncology Physician Assistant: José Miguel White M.D. Performed By: #### S #### [facility] CLIA [id number] [address] [place] [address] GROSS DESCRIPTION A. CECUM POLYP Normal [facility] Comment on above: Order Comment: Speci men Type: TISSUE SPECIMEN Ordering Facility: [facility] Address: [address] [place] [address] Result Comment: Rece ived in formalin is [...] 2023 3:40 PM Gross examination performed at [facility], [address] [place] [address] Performed By: #### S #### [facility] CLIA [id number] [address] [place] [address] [place] [address] [place] Office Visiton 06-12-2023 Follow-up visit [id number] Hortensia Bates 1955 F Date Provider Department Center 06/12/2023 UMAIR SAAVEDRA CARD [facility] Family History Problem Relation Age of Onset No Known Problems Mother No Known Problems Father Family Status - Relation Status Age at Mother Father Level of Service:20598 [place] OFFICE/OUTPATIENT ESTABLISHED MOD MDM 30 MIN Normal [facility] CNPJaney 06-04-2023 CNPN Telephone (GASTAV) HORTENSIA BATES ([id number]) 1955 F Date Time Provider Department 06/04/23 HARLEEN MACDONALD During your visit today, we recorded the following information about you: Naila Fleming OCCA 06/04/2023 11:19 AM Signed Contacted and spoke with patient regarding prep instructions for upcoming procedure. Answered all patient's questions. Patient demonstrated understanding and was instructed to call [phone] and ask for nurse triage line for [...] 20 mins and then resume. Please call [phone] and ask for Nurse Triage with any [...] and then resume. THANK YOU! Please call [phone] and ask for nurse triage line if you have any questions [facility] - 2nd floor (Surgery Center) [address] [facility] [place] [address] Allergies As of Date: 06/04/2023 Noted Allergy Reaction SPIRONOLACTONE 04/29/2023 4 - Hives THIAZIDES 05/06/2022 4 - Hives Date Reviewed: Never Reviewed Reason for Visit: Pre-Op Teaching [134] Prescriptions as of 06/04/2023 - apixaban (ELIQUIS) 5 mg tab(s) Take 5 mg by mouth two times a day. - levothyroxine (SYNTHROID) 100 mcg tablet Levothyroxine Sodium - metFORMIN ER (more content not included)... Normal [facility] CNOVon 04-29-2023 CNOV Office Visit (GASTAV ) HORTENSIA BATES ([id number]) 1955 F Date Time Provider Department 04/29/23 12:20 PM HARLEEN MACDONALD During your visit today, we recorded the following information about you: Pulse Blood pressure Weight 78/minute 140/80 144.7 kg Harleen Macdonald DO 04/29/2023 12:04 PM Signed Bowel Preparation [...] If you do not have a responsible owner operator tanker truck driver (family member or friend) with you to take you home, your exam cannot be done with sedation and will be cancelled. Please bring a list of all of your current medications, including any Qmbw-dak-Hqehpyx medications with you. Medications If you take [...] hours before your exam. 2 04/2019 Harleen Macdonald DO 04/29/2023 12:49 PM Signed Chief Compliant: Consultation requested by Dr. Kaila Goldstein, [facility] for an opinion regarding hx of colon polyps. My final recommendations will be communicated back to the requesting physician by way of shared Medical record or letter to requesting physician via US mail. HPI: Hortensia Bates is a 67 year old female with PMH significant for hypo (more content not included)... Normal [facility] ZEESHANHORTENSIA BECKER ([id number]) 1955 F Date Time Provider Department 04/21/23 CARMEN JACOB [facility] During your visit today, we recorded the following information about you: Elly Álvarez 04/21/2023 3:02 PM Signed Pt's VM is full and there is no active MC Cannot inform pt 05/28 appt w/Kristel was canceled If pt calls back an attempt was made to contact her Frandy Álvarez 04/21/23 Allergies As of Date: 04/21/2023 (Not on File) Date Reviewed: Never Reviewed Reason for Visit: Appointment [186] Problem List As Of Date: 04/21/2023 (None) Encounter Status:Closed by MAY ÁLVAREZEKAH on 04/21/23 Normal [facility] Glucose Glucometer (BldC) [M ass/Vol]Ordered By: Kaial Goldstein on 04-03-2023 Glucose [Mass/Vol] 118 mg/dL [facility] Comment on above: Random Glucose Refer ence Range is dependent on time and content of last meal. Glucose of more than 200 mg/dL in a nonstressed, ambulatory subject supports the diagnosis of Diabetes Mellitus. Glucose Poct Glucometerson 1 06-03-2022 Glucose [Mass/Vol] 118 mg/dL Normal [facility] Comment on above: Result Comment: [place] om Glucose Reference Range is dependent on time and content of last meal. Glucose of more than 200 mg/dL in a nonstressed, ambulatory subject supports the diagnosis of Diabetes Mellitus. PERFORMED BY: [place] [address] PATHOLOGIST [employer] CAKE [employer]KER DARNELL WESLEY M.D. Performed By: #### G GISEL #### Point of Care testing , PET tumor init tx strat sb-m ton 04-03-2023 PET tumor init tx strat sb-mt [facility] [place] [address] Nuclear Medicine Report Signed Patient: Hortensia Bates MR#: [id number] : 1955 Acct:[id number] Age/Sex: 67 / F ADM Date: 04/03/23 Loc: Room: Type: [facility] [place] Attending Dr: Kaila Goldstein Copies to: Simone Reid Jr, DO KailaRADHA Murray Ordering Provider: RADHA Blanton Date of Service: [...] Reid Jr., D.O.04/03/2023 1:18 PM Dictation Location: [place] [address] Transcribed By: [facility] 04/03/23 1318 Dictated By: Simone Reid Jr, DO 04/03/23 1202 Signed By: 04/03/23 1318 [facility] Physician Referralon 27-2 023 Physician Referral [id number] [facility] Office Visiton 12-03-2022 Follow-up visit [id number] Hortensia Bates 1955 F Date Provider Department Center 12/03/2022 [id number] Family History Problem Relation Age of Onset No Known Problems Mother No Known Problems Father Family Status - Relation Status Age at Mother Father Level of Service:85025 [place] OFFICE/OUTPATIENT ESTABLISHED MOD MDM 30-39 MIN Reason for Visit and Comments: Follow-up [330910] - 6 month follow up Normal [facility] CBC AUTO DIFFon 09-15-2022 BASO # 0.1 103/ul Normal 0.0-0.1 [facility] Comment on above: Performed By: #### C BC #### [facility] [address] [place] [address] Dr. Yenny Huertas Basophils/100 WBC (Bld) 0.7 % Normal 0.2-2.0 [facility] Comment on above: Performed By: #### C BC #### [facility] [address] [place] [address] Dr. Yenny Huertas EO # 0.2 103/ul Normal 0.0-0.7 [facility] Comment on above: Performed By: #### C BC #### [facility] [address] [place] [address] Dr. Yenny Huertas Eosinophils/100 WBC (Bld) 2.7 % Normal 0.9-7.0 [facility] Comment on above: Performed By: #### C BC #### [facility] [address] [place] [address] Dr. Yenny Huertas Erythrocyte distribution width (RBC) [Ratio] 14.6 % Normal 11.0-15.0 [facility] Comment on above: Performed By: #### C BC #### [facility] [address] [place] [address] Dr. Yenny Huertas Hematocrit (Bld) [Volume fraction] 41.4 % Normal 36.0-48.0 [facility] Comment on above: Performed By: #### C BC #### [facility] [address] [place] [address] Dr. Yenny Huertas Hemoglobin (Bld) [Mass/Vol] 13.6 g/dL Normal 12.0-16.0 [facility] Comment on above: Performed By: #### C BC #### [facility] [address] [place] [address] Dr. Yenny Huertas IG # 0.03 10e3/ul Normal 0.00-0.03 [facility] Comment on above: Performed By: #### C BC #### [facility] [address] [place] [address] Dr. Yenny Huertas IG % 0.3 % Normal 0.0-0.5 [facility] Comment on above: Performed By: #### C BC #### [facility] [address] [place] [address] Dr. Yenny Huertas LYMPH # 3.3 103/ul Normal 1.2-3.8 [facility] Comment on above: Performed By: #### C BC #### [facility] [address] [place] [address] Dr. Yenny Huertas Lymphocytes/100 WBC (Bld) 36.3 % Normal 20.5-60.0 [facility] Comment on above: Performed By: #### C BC #### [facility] [address] [place] [address] Dr. Yenny Huertas MANUAL DIFF REQ NO Normal [facility] Comment on above: Performed By: #### C BC #### [facility] [address] [place] [address] Dr. Yenny Huertas MCH (RBC) [Entitic mass] 29.1 pg Normal 26.7-34.0 [facility] Comment on above: Performed By: #### C BC #### [facility] [address] [place] [address] Dr. Yenny Huertas MCHC (RBC) [Mass/Vol] 32.9 g/dL Normal 29.9-35.2 [facility] Comment on above: Performed By: #### C BC #### [facility] [address] [place] [address] Dr. Yenny Huertas MCV (RBC) [Entitic vol] 88.7 fL Normal 81.0-99.0 [facility] Comment on above: Performed By: #### C BC #### [facility] [address] [place] [address] Dr. Yenny Huertas MONO # 0.7 103/ul Normal 0.3-0.8 [facility] Comment on above: Performed By: #### C BC #### [facility] [address] [place] [address] Dr. Yenny Huertas Monocytes/100 WBC (Bld) 7.7 % Normal 1.7-12.0 [facility] Comment on above: Performed By: #### C BC #### [facility] [address] [place] [address] Dr. Yenny Huertas NEUT # 4.7 103/ul Normal 1.4-6.5 [facility] Comment on above: Performed By: #### C BC #### [facility] [address] [place] [address] Dr. Yenny Huertas Neutrophils/100 WBC (Bld) 52.3 % Normal 43.0-75.0 [facility] Comment on above: Performed By: #### C BC #### [facility] [address] [place] [address] Dr. Yenny Huertas Platelet mean volume (Bld) [Entitic vol] 9.9 fL Normal 9.5-13.5 [facility] Comment on above: Performed By: #### C BC #### [facility] [address] [place] [address] Dr. Yenny Huertas PLT 285 103/ul Normal 150-450 [facility] Comment on above: Performed By: #### C BC #### [facility] [address] [place] [address] Dr. Yenny Huertas RBC 4.67 106/ul Normal 4.20-5.40 [facility] Comment on above: Performed By: #### C BC #### [facility] [address] [place] [address] Dr. Yenny Huertas WBC 9.0 103/ul Normal 4.0-11.0 [facility] Comment on above: Performed By: #### C BC #### [facility] [address] [place] [address] Dr. Yenny Huertas FREE T4on 09-15-2022 Free T4 [Mass/Vol] 1.04 ng/dL Normal 0.76-1.46 [facility] Comment on above: Performed By: #### F T4 #### [facility] [address] [place] [address] Dr. Yenny Huertas GLYCOHEMOGLOBIN A1Con 2022 ADA RECOMMENDATION SEE BELOW Normal [facility] Comment on above: Result Comment: ADA RECOMMENDED LIMIT 4.0 - 6.0 ADA THERAPEUTIC TARGET < 7.0 ACTION SUGGESTED > 7.0 Performed By: #### A 1C #### [facility] [address] [place] [address] Dr. Yenny Huertas Glucose [Mass/Vol] 126 mg/dL Normal [facility] Comment on above: Performed By: #### A 1C #### [facility] [address] [place] [address] Dr. Yenny Huertas HbA1c (Bld) [Mass fraction] 6.0 % Normal 4.5-6.2 [facility] Comment on above: Performed By: #### A 1C #### [facility] [address] [place] [address] Dr. Yenny Huertas MICROALBUMIN, [place] URon 05-0 mALB <1.3 Normal <=30.0 [facility] Comment on above: Performed By: #### M ALBR #### [facility] [address] [place] [address] Dr. Yenny Huertas PROF 14(COMP METB)on 023 Albumin [Mass/Vol] 3.5 g/dL Normal 3.4-5.0 [facility] Comment on above: Performed By: #### T SH, CMP #### [facility] [address] [place] [address] Dr. Yenny Huertas Albumin/Globulin [Mass ratio] 0.9 {ratio} Normal [facility] Comment on above: Performed By: #### T SH, CMP #### [facility] [address] [place] [address] Dr. Yenny Huertas ALP [Catalytic activity/Vol] 53 U/L Normal 46-116 [facility] Comment on above: Performed By: #### T SH, CMP #### [facility] [address] [place] [address] Dr. Yenny Huertas ALT [Catalytic activity/Vol] 30 U/L Normal 14-59 [facility] Comment on above: Performed By: #### T SH, CMP #### [facility] [address] [place], [place] [address] Dr. Yenny Huertas Anion gap [Moles/Vol] 9.6 mmol/L Normal [facility] Comment on above: Performed By: #### T MADELIN, CMP #### [facility] [address] [place] [address] Dr. Yenny Huertas AST [Catalytic activity/Vol] 17 U/L Normal 15-37 [facility] Comment on above: Performed By: #### T MADELIN, CMP #### [facility] [address] [place] [address] Dr. Yenny Huertas Bilirubin [Mass/Vol] 0.6 mg/dL Normal 0.2-1.0 [facility] Comment on above: Performed By: #### T MADELIN, CMP #### [facility] [address] [place] [address] Dr. Yenny Huertas Calcium [Mass/Vol] 9.1 mg/dL Normal 8.5-10.1 [facility] Comment on above: Performed By: #### T MADELIN, CMP #### [facility] [address] [place] [address] Dr. Yenny Huertas Chloride [Moles/Vol] 106 mmol/L Normal 98-107 [facility] Comment on above: Performed By: #### T MADELIN, CMP #### [facility] [address] [place] [address] Dr. Yenny Huertas CO2 [Moles/Vol] 26.4 mmol/L Normal 21.0-32.0 [facility] Comment on above: Performed By: #### T MADELIN, CMP #### [facility] [address] [place] [address] Dr. Yenny Huertas Creatinine [Mass/Vol] 0.84 mg/dL Normal 0.55-1.02 [facility] Comment on above: Performed By: #### T MADELIN, CMP #### [facility] [address] [place] [address] Dr. Yenny Huertas EGFR-AF [place] >60 Normal >=60 [facility] Comment on above: Performed By: #### T MADELIN, CMP #### [facility] [address] [place] [address] Dr. Yenny Huertas EGFR-NON AF [place] >60 Normal >=60 [facility] Comment on above: Performed By: #### T SH, CMP #### [facility] [address] [place] [address] [address] Yenyn Huertas Globulin (S) [Mass/Vol] 3.9 g/dL Normal [facility] Comment on above: Performed By: #### T SH, CMP #### [facility] [address] [address] [address] Yenny Huertas Glucose [Mass/Vol] 119 mg/dL Critically high 74-106 [facility] Comment on above: Performed By: #### T MADELIN, CMP #### [facility] [address] [place] [address] Dr. Yenny Huertas Potassium [Moles/Vol] 4.0 mmol/L Normal 3.5-5.1 [facility] Comment on above: Performed By: #### T MADELIN, CMP #### [facility] [address] [place] [address] Dr. Yenny Huertas Protein [Mass/Vol] 7.4 g/dL Normal 6.4-8.2 [facility] Comment on above: Performed By: #### T MADELIN, CMP #### [facility] [address] [place] [address] Dr. Yenny Huertas Sodium [Moles/Vol] 138 mmol/L Normal 136-145 [facility] Comment on above: Performed By: #### T MADELIN, CMP #### [facility] [address] [place] [address] Dr. Yenny Huertas Urea nitrogen [Mass/Vol] 21.0 mg/dL Critically high 7.0-18.0 [facility] Comment on above: Performed By: #### T SH, CMP #### [facility] [address] [place] [address] Dr. Yenny Huertas Urea nitrogen/Creatinine [Mass ratio] 25.0 mg/mg Normal [facility] Comment on above: Performed By: #### T MADELIN, CMP #### [facility] [address] [place] [address] Dr. Yenny Huertas TSHon 09-15-2022 TSH 3.836 uIU/mL Critically high 0.358-3.740 [facility] Comment on above: Performed By: #### T SH, CMP #### [facility] [address] [place] [address] Dr. Yenny Huertas UA RANDOM W/MICROSCOPICon BACTERIA TRACE Abnormal NONE SEEN [facility] Comment on above: Performed By: #### U AMIC #### [facility] [address] [place] [address] Dr. Yenny Huertas Bilirubin Ql (U) Negative Normal NEGATIVE [facility] Comment on above: Performed By: #### U AMIC #### [facility] [address] [place] [address] Dr. Yenny Huertas CAST NONE SEEN Normal NONE SEEN [facility] Comment on above: Performed By: #### U AMIC #### [facility] [address] [place] [address] Dr. Yenny Huertas Clarity (U) CLEAR Normal CLEAR [facility] Comment on above: Performed By: #### U AMIC #### [facility] [address] [place] [address] Dr. Yenny Huertas Color (U) LT. YELLOW Normal YELLOW [facility] Comment on above: Performed By: #### U AMIC #### [facility] [address] [place] [address] Dr. Yenny Huertas Crystals LM Nom (Urine sed) NONE SEEN Normal NONE SEEN [facility] Comment on above: Performed By: #### U AMIC #### [facility] [address] [place] [address] Dr. Yenny Huertas Epithelial cells LM Ql (Urine sed) MODERATE Abnormal NONE SEEN /RARE [facility] Comment on above: Performed By: #### U AMIC #### [facility] [address] [place] [address] Dr. Yenny Huertas Glucose Ql (U) Negative Normal NEGATIVE [facility] Comment on above: Performed By: #### U AMIC #### [facility] [address] [address] [address] Yenny Huertas Hemoglobin Ql (U) Negative Normal NEGATIVE [facility] Comment on above: Performed By: #### U AMIC #### [facility] [address] [place] [address] Dr. Yenny Huertas Ketones Ql (U) Negative Normal NEGATIVE [facility] Comment on above: Performed By: #### U AMIC #### [facility] [address] [place] [address] Dr. Yenny Huertas LEUKOCYTES TRACE Abnormal NEGATIVE [facility] Comment on above: Performed By: #### U AMIC #### [facility] [address] [place] [address] Dr. Yenny Huertas MUCOUS NONE SEEN Normal NONE SEEN [facility] Comment on above: Performed By: #### U AMIC #### [facility] [address] [place] [address] Dr. Yenny Huertas Nitrite Ql (U) Negative Normal NEGATIVE [facility] Comment on above: Performed By: #### U AMIC #### [facility] [address] [place] [address] Dr. Yenny Huertas pH (U) 5.0 [pH] Normal 5-9 [facility] Comment on above: Performed By: #### U AMIC #### [facility] [address] [place] [address] Dr. Yenny Huertas RBC 0-2 Normal 0-2 [facility] Comment on above: Performed By: #### U AMIC #### [facility] [address] [place] [address] Dr. Yenny Huertas SPEC GRAVITY >=1.030 Abnormal 1.005-<=1.025 [facility] Comment on above: Performed By: #### U AMIC #### [facility] [address] [place] [address] Dr. Yenny Huertas UA PROTEIN Negative Normal NEGATIVE/ TRACE [facility] Comment on above: Performed By: #### U AMIC #### [facility] [address] [place] [address] Dr. Yenny Huertas Urobilinogen Qn (U) 0.2 {Mila'U}/dL Normal 0.2 - 1. 0 [facility] Comment on above: Performed By: #### U AMIC #### [facility] [address] [place] [address] Dr. Yenny Huertas WBC 2-5 Abnormal NONE SEEN [facility] Comment on above: Performed By: #### U AMIC #### [facility] [address] [place] [address] Dr. Yenny Huertas Covid-19 PCR ([facility])on 04-17 SARS-CoV-2 (COVID-19) RNA JAS+probe Ql (Unsp spec) Detected Critically abnormal NOT DETECTED [facility] Comment on above: Result Comment: This test is not yet approved or cleared by the [place] FDA. When there are no FDA-approved or cleared tests available, and other criteria are met, FDA can make tests available under an emergency access mechanism called an Emergency Use Authorization (EUA). The EUA for this test is supported by the [place] of Health and Human Service's declaration that [...] used). Performed By: #### C VDTBH #### [facility] [address] [place] [address] Dr. Yenny Huertas INFLUENZA A AND B AGon 05-01 INFLUANEGH SEE BELOW Normal [facility] Comment on above: Result Comment: Nega tive for Flu A protein angiten. Infection due to Flu A cannot be ruled out. Flu A angiten in the sample may be below the detection limit of the test. Performed By: #### I NFLUAB #### [facility] [address] [place] [address] Dr. Yenny Huertas INFLUBNEGH SEE BELOW Normal [facility] Comment on above: Result Comment: Nega tive for Flu B protein antigen. Infection due to Flu B cannot be ruled out. Flu B antigen in the sample may be below the detection limit of the test. Performed By: #### I NFLUAB #### [facility] [address] [place] [address] Dr. Yenny Huertas INFLUENZA A AG Negative Normal NEGATIVE SEE COMMENT [facility] Comment on above: Performed By: #### I NFLUAB #### [facility] [address] [place] [address] Dr. Yenny Huertas INFLUENZA B AG Negative Normal NEGATIVE SEE COMMENT [facility] Comment on above: Performed By: #### I NFLUAB #### [facility] [address] [place] [address] Dr. Yenny Huertas INTERNAL CONTROLS Within Normal Limits Normal Wi thin Normal Limits [facility] Comment on above: Performed By: #### I NFLUAB #### [facility] [address] [place] [address] Dr. Yenny Huertas GLYCOHEMOGLOBIN A1Con 2021 ADA RECOMMENDATION SEE BELOW Normal [facility] Comment on above: Result Comment: ADA RECOMMENDED LIMIT 4.0 - 6.0 ADA THERAPEUTIC TARGET < 7.0 ACTION SUGGESTED > 7.0 Performed By: #### M ALBR #### [facility] [address] [place] [address] Dr. Yenny Huertas Glucose [Mass/Vol] 117 mg/dL Normal [facility] Comment on above: Performed By: #### M ALBR #### [facility] [address] [place] [address] Dr. Yenny Huertas HbA1c (Bld) [Mass fraction] 5.7 % Normal 4.5-6.2 [facility] Comment on above: Performed By: #### M ALBR #### [facility] [address] [place] [address] Dr. Yenny Huertas URIC ACID SERUMon 03-13-2022 Urate [Mass/Vol] 4.8 mg/dL Normal 2.6-6.0 [facility] Comment on above: Performed By: #### U DILIA #### [facility] [address] [place] [address] Dr. Yenny Huertas Endoscopy Reporton 06-19-202 1 Endoscopy Report MR#: [id number] [facility] Pt. Name: Hortensia Bates Surgery Date: 11/02/2020 [...] Aranda MD Date Trans: 11/03/2020 08:22 A/mmo [id number] Normal [facility] POC GLUCOSE LABon 11-02-2020 Glucose [Mass/Vol] 90 mg/dL Normal 70-100 [facility] Comment on above: Performed By: #### 3 1792 #### [facility] [address] [facility]. [address] BASIC METABOLIC PANELon 07-16 Calcium [Mass/Vol] 7.9 mg/dL Low 8.6-10.3 [facility] Comment on above: Order Comment: No: D o not add to previous draw Performed By: #### 8 [id number] #### [facility] [address] [facility] [place] [address], [facility] Chloride [Moles/Vol] 107 mmol/L Normal 98-107 [facility] Comment on above: Order Comment: No: D o not add to previous draw Performed By: #### 8 [id number] #### [facility] [address] [facility] [place] [address], [facility] CO2 [Moles/Vol] 24 mmol/L Normal 21-31 [facility] Comment on above: Order Comment: No: D o not add to previous draw Performed By: #### 8 [id number] #### [facility] [address] [facility] [place] [address], [facility] Creatinine [Mass/Vol] 0.62 mg/dL Normal 0.60-1.20 [facility] Comment on above: Order Comment: No: D o not add to previous draw Performed By: #### 8 [id number] #### [facility] [address] [place] [address], [facility] GFR/1.73 sq M.predicted among blacks MDRD (S/P/Bld) [Vol rate/Area] mL/min/{1.73_m2} Normal >60 [facility] Comment on above: Order Comment: No: D o not add to previous draw Performed By: #### 8 [id number] #### [facility] [address] [place] [address], [place] GFR/1.73 sq M.predicted among non-blacks MDRD (S/P/Bld) [Vol rate/Area] mL/min/{1.73_m2} Normal >60 [facility] Comment on above: Order Comment: No: D o not add to previous draw Performed By: #### 8 [id number] #### [facility] [address] [place] [address], [place] Glucose [Mass/Vol] 106 mg/dL High 70-100 [facility] Comment on above: Order Comment: No: D o not add to previous draw Performed By: #### 8 [id number] #### [facility] [address] [place] [address], [place] Potassium [Moles/Vol] 3.9 mmol/L Normal 3.5-5.1 [facility] Comment on above: Order Comment: No: D o not add to previous draw Performed By: #### 8 [id number] #### [facility] [address] [place] [address], [place] Sodium [Moles/Vol] 137 mmol/L Normal 136-145 [facility] Comment on above: Order Comment: No: D o not add to previous draw Performed By: #### 8 [id number] #### [facility] [address] [place] [address], [place] Urea nitrogen [Mass/Vol] 11 mg/dL Normal 7-25 [facility] Comment on above: Order Comment: No: D o not add to previous draw Performed By: #### 8 [id number] #### [facility] [address] [place] [address], [place] CBC COMPLETE BLOOD COUNTon 0 - Erythrocyte distribution width (RBC) [Ratio] 14.1 % Normal 11.5-15.0 [facility] Comment on above: Order Comment: No: D o not add to previous draw Performed By: #### 8 [id number] #### [facility] [address] [place] [address], [facility] Hematocrit (Bld) [Volume fraction] 37.8 % Normal 36.0-45.0 [facility] Comment on above: Order Comment: No: D o not add to previous draw Performed By: #### 8 [id number] #### [facility] [address] [place] [address], [facility] Hemoglobin (Bld) [Mass/Vol] 12.2 g/dL Normal 12.0-15.0 [facility] Comment on above: Order Comment: No: D o not add to previous draw Performed By: #### 8 [id number] #### [facility] [address] [place] [address], [facility] MCH (RBC) [Entitic mass] 29.6 pg Normal 27.0-33.0 [facility] Comment on above: Order Comment: No: D o not add to previous draw Performed By: #### 8 [id number] #### [facility] [address] [place] [address], [facility] MCHC (RBC) [Mass/Vol] 32.3 g/dL Normal 32.0-35.0 [facility] Comment on above: Order Comment: No: D o not add to previous draw Performed By: #### 8 [id number] #### [facility] [address] [place] [address], [place] MCV (RBC) [Entitic vol] 91.7 fL Normal 82.0-98.0 [facility] Comment on above: Order Comment: No: D o not add to previous draw Performed By: #### 8 [id number] #### [facility] [address] [place] [address], [place] Nucleated RBC/100 WBC (Bld) [Ratio] 0 % Normal 0-0 [facility] Comment on above: Order Comment: No: D o not add to previous draw Performed By: #### 8 [id number] #### [facility] [address] [place] [address], [place] PLAT CNT 276 10*3/uL Normal 150-400 [facility] Comment on above: Order Comment: No: D o not add to previous draw Performed By: #### 8 [id number] #### [facility] [address] [place] [address], [place] RBC (Bld) [#/Vol] 4.12 10*6/uL Normal 3.80-5.00 [facility] Comment on above: Order Comment: No: D o not add to previous draw Performed By: #### 8 [id number] #### [facility] [address] [place] [address], [facility] WBC (Bld) [#/Vol] 15.14 10*3/uL High 4.00-10.60 [facility] Comment on above: Order Comment: No: D o not add to previous draw Performed By: #### 8 [id number] #### [facility] [address] [place] [address], [place] MAGNESIUM BLOODon 07-27-2020 Magnesium [Mass/Vol] 1.7 mg/dL Low 1.9-2.7 [facility] Comment on above: Order Comment: No: D o not add to previous draw Performed By: #### 8 [id number] #### [facility] [address] [place] [address], [place] POC GLUCOSE LABon 07-27-2020 Glucose [Mass/Vol] 93 mg/dL Normal 70-100 [facility] Comment on above: Performed By: #### 3 1792 #### [facility] [address] [place] [address], [place] Glucose [Mass/Vol] 101 mg/dL High 70-100 [facility] Comment on above: Performed By: #### 3 5200 #### [facility] [address] [place] [address], [facility] Cardiovascular Lab Reporton 07-26-2020 Cardiovascular Lab Report [facility] Patient Name: Hortensia Bates [facility] MR #: [id number] Physician: Suleiman Salamanca MD Department of Service Date: 07/26/2020 Medicine Birthdate: 1955 Division of Room #: 3AB [id number] Cardiology Adult Cardiovascular Services [facility] [address] [place], [place] [address] Cardiovascular Laboratory Report ATRIAL FIBRILLATION ABLATION PROCEDURE NOTE DATE OF PROCEDURE: 07/26/2020 PERFORMING PHYSICIAN: Dr. Suleiman Salamanca CONSENT: Patient NAME OF THE PROCEDURE: Pulmonary [...] mildly enlarged. Esophagus was mapped using the [employer] 3D mapping software. Double transseptal access technique [...] fol (more content not included)... Normal [facility] POC GLUCOSE LABon 07-26-2020 Glucose [Mass/Vol] 135 mg/dL High 70-100 [facility] Comment on above: Performed By: #### 8 [id number] ####[facility] [place] [address], [facility] Glucose [Mass/Vol] 134 mg/dL High 70-100 [facility] Comment on above: Performed By: #### 8 5499 ####[facility] [facility] [place] [place] [address], [facility] Glucose [Mass/Vol] 106 mg/dL High 70-100 [facility] Comment on above: Performed By: #### 8 [id number] ####[facility] [facility].[address] Endoscopy Reporton 0 Endoscopy Report MR#: [id number] [facility] Pt. Name: Hortensia Bates Surgery Date: 04/23/2020 Room #: 3AB [id number] Date of : 1955 PROCEDURE NOTE ATTENDING: [...] snare, measured 3 mm and 5 mm. [id number] sigmoid diverticulosis. 3. Poor colon preparation. RECOMMENDATIONS: [...] Sanchez M.D. Date Trans: 04/23/2020 10:38 A/lazarus [id number] Normal [facility] POC GLUCOSE LABon 04-23-2020 Glucose [Mass/Vol] 116 mg/dL High 70-100 [facility] Comment on above: Performed By: #### 8 [id number] #### [facility] [address] [place] [address], [place] Glucose [Mass/Vol] 98 mg/dL Normal 70-100 [facility] Comment on above: Performed By: #### 3 5200 #### [facility] [address] [place] [address], [place] Glucose [Mass/Vol] 89 mg/dL Normal 70-100 [facility] Comment on above: Performed By: #### 8 [id number] ####[facility] [place] [address], [place] POC GLUCOSE LABon 04-22-2020 Glucose [Mass/Vol] 93 mg/dL Normal 70-100 [facility] Comment on above: Performed By: #### 3 1792 #### [facility] [address] [place] [address], [place] Glucose [Mass/Vol] 99 mg/dL Normal 70-100 [facility] Comment on above: Performed By: #### 3 5200 #### [facility] [address] [place] [address], [place] Glucose [Mass/Vol] 109 mg/dL High 70-100 [facility] Comment on above: Performed By: #### 3 1792 #### [facility] [address] [place] [address], [place] *SARS-CoV-2 COVID-19on 04-21 Clinical Report Normal The [facility] Comment on above: Result Comment: Spec imen: OROPHARYNGEAL Collected: 04/21/2020 11:17 Status: Final Last Updated: 04/22/2020 12:41 COVID-19 (Final) Not Detected The [employer] SARS-CoV-2 assay is a real-time (rt) reverse transcriptase (RT) polymerase chain reaction (PCR) test intended for the [employer] system. The SARS-CoV-2 primer and probe sets are designed to detect RNA from SARS-CoV-2 in a nasopharyngeal (WAX BALL MOLDER) or oropharyngeal (OP) swab from patients with signs and symptoms of infection who are suspected of COVID-19. Results are for the identification of SARS-CoV-2 RNA. The SARS-CoV-2 RNA is generally detectable in a nasopharyngeal or oropharyngeal swab during the acute phase of infection. The [employer] SARS-CoV-2 assay is intended for use by qualified and trained clinical laboratory personnel specifically instructed and trained in the techniques of real-time PCR and in vitro diagnostic procedures. The [employer] SARS-CoV-2 assay is only for use under the Food and Drug Administration Emergency Use Authorization. Testing is limited to laboratories certified under the Clinical Laboratory Improvement Amendments of 1988 (CLIA), 42 U.S.C. 263a, to perform high complexity tests. Performed By: #### 3 5200 #### [facility] [address] [place] [address], [place] POC GLUCOSE LABon 04-21-2020 Glucose [Mass/Vol] 105 mg/dL High 70-100 [facility] Comment on above: Performed By: #### 8 [id number] #### [facility] [address] [place] [address], [place] Glucose [Mass/Vol] 97 mg/dL Normal 70-100 [facility] Comment on above: Performed By: #### 8 5499 ####[facility] [place] [address], [place] Glucose [Mass/Vol] 94 mg/dL Normal 70-100 [facility] Comment on above: Performed By: #### 8 5499 ####[facility] [place] [address], [place] Glucose [Mass/Vol] 98 mg/dL Normal 70-100 [facility] Comment on above: Performed By: #### 8 [id number] ####[facility] [facility].[address] PROTHROMBIN TIMEon 0 INR Coag (PPP) [Relative time] 1.04 {INR} Normal 0.91-1.16 [facility] Comment on above: Order Comment: [...] CHEST 1995;108:[id number]. Performed By: #### 1 0070, [id number] #### [facility] [address] [facility]. [address] PT Coag (PPP) [Time] 13.6 s Normal 12.3-14.8 [facility] Comment on above: Order Comment: No: D o not add to previous draw Result Comment: ALL RESULTS MUST BE INTERPRETED WITH RESPECT TO BLOOD DRAWING ARTIFACT OR DILUTION ERROR OF ANTICOAGULANT AT THE TIME OF SAMPLING. Performed By: #### 1 0070, [id number] #### [facility] [address] BASIC METABOLIC PANELon 12-0 Calcium [Mass/Vol] 8.8 mg/dL Normal 8.6-10.3 [facility] Comment on above: Order Comment: No: D o not add to previous draw Performed By: #### 1 0070, 56483 #### [facility] [address] [place] [address], [place] Chloride [Moles/Vol] 103 mmol/L Normal 98-107 [facility] Comment on above: Order Comment: No: D o not add to previous draw Performed By: #### 1 0070, [id number] #### [facility] [address] [place] [address], [place] CO2 [Moles/Vol] 26 mmol/L Normal 21-31 [facility] Comment on above: Order Comment: No: D o not add to previous draw Performed By: #### 1 0, 35140 #### [facility] [address] [place] [address], [place] Creatinine [Mass/Vol] 0.82 mg/dL Normal 0.60-1.20 [facility] Comment on above: Order Comment: No: D o not add to previous draw Performed By: #### 1 0, 46595 #### [facility] [address] [place] [address], [place] GFR/1.73 sq M.predicted among blacks MDRD (S/P/Bld) [Vol rate/Area] mL/min/{1.73_m2} Normal >60 [facility] Comment on above: Order Comment: No: D o not add to previous draw Performed By: #### 1 0070, [id number] #### [facility] [address] [place] [address], [place] GFR/1.73 sq M.predicted among non-blacks MDRD (S/P/Bld) [Vol rate/Area] mL/min/{1.73_m2} Normal >60 [facility] Comment on above: Order Comment: No: D o not add to previous draw Performed By: #### 1 0070, [id number] #### [facility] [address] [place] [address], [place] Glucose [Mass/Vol] 99 mg/dL Normal 70-100 [facility] Comment on above: Order Comment: No: D o not add to previous draw Performed By: #### 1 0070, [id number] #### [facility] [address] [place] [address], [place] Potassium [Moles/Vol] 3.8 mmol/L Normal 3.5-5.1 The [facility] Comment on above: Order Comment: No: D o not add to previous draw Performed By: #### 1 69, 64802 #### [facility] [address] [place] [address], [place] Sodium [Moles/Vol] 136 mmol/L Normal 136-145 The [facility] Comment on above: Order Comment: No: D o not add to previous draw Performed By: #### 1 69, 92479 #### [facility] [address] [place] [address], [place] Urea nitrogen [Mass/Vol] 15 mg/dL Normal 7-25 The [facility] Comment on above: Order Comment: No: D o not add to previous draw Performed By: #### 1 69, 97931 #### [facility] [address] [place] [address], [place] POC GLUCOSE LABon 04-20-2020 Glucose [Mass/Vol] 109 mg/dL High 70-100 [facility] Comment on above: Performed By: #### 3 5200 #### [facility] [address] [place] [address], [place] Glucose [Mass/Vol] 95 mg/dL Normal 70-100 The [facility] Comment on above: Performed By: #### 8 5499 ####[facility] [place] [address], [place] Glucose [Mass/Vol] 92 mg/dL Normal 70-100 [facility] Comment on above: Performed By: #### 3 5200 #### [facility] [address] [place] [address], [place] Glucose [Mass/Vol] 94 mg/dL Normal 70-100 [facility] Comment on above: Performed By: #### 8 5499 ####[facility] [place] [address], [place] HEMATOCRITon 04-19-2020 Hematocrit (Bld) [Volume fraction] 42.6 % Normal 36.0-45.0 The [facility] Comment on above: Order Comment: No: D o not add to previous draw Performed By: #### 8 5499 #### [facility] [address] [place] [address], [place] HEMOGLOBINon 04-19-2020 Hemoglobin (Bld) [Mass/Vol] 13.6 g/dL Normal 12.0-15.0 The [facility] Comment on above: Order Comment: No: D o not add to previous draw Performed By: #### 8 5499 #### [facility] [address] [place] [address], [place] POC GLUCOSE LABon 04-19-2020 Glucose [Mass/Vol] 114 mg/dL High 70-100 The [facility] Comment on above: Performed By: #### 8 5499 ####[facility] [place] [address], [place] Glucose [Mass/Vol] 110 mg/dL High 70-100 [facility] Comment on above: Performed By: #### 3 1792 #### [facility] [address] [place] [address], [place] Glucose [Mass/Vol] 95 mg/dL Normal 70-100 The [facility] Comment on above: Performed By: #### 8 5499 ####[facility] Glucose [Mass/Vol] 89 mg/dL Normal 70-100 [facility] Comment on above: Performed By: #### 3 1792 #### [facility] [address] *SARS-CoV-2 COVID-19on 04-18 Clinical Report Normal The [facility] Comment on above: Result Comment: Spec imen: OROPHARYNGEAL Collected: 04/17/2020 23:30 Status: Final Last Updated: 04/18/2020 09:00 COVID-19 (Final) Not Detected The [employer] SARS-CoV-2 assay is a real-time (rt) reverse transcriptase (RT) polymerase chain reaction (PCR) test intended for the [employer] system. The SARS-CoV-2 primer and probe sets are designed to detect RNA from SARS-CoV-2 in a nasopharyngeal (WAX BALL MOLDER) or oropharyngeal (OP) swab from patients with signs and symptoms of infection who are suspected of COVID-19. Results are for the identification of SARS-CoV-2 RNA. The SARS-CoV-2 RNA is generally detectable in a nasopharyngeal or oropharyngeal swab during the acute phase of infection. The [employer] SARS-CoV-2 assay is intended for use by qualified and trained clinical laboratory personnel specifically instructed and trained in the techniques of real-time PCR and in vitro diagnostic procedures. The [employer] SARS-CoV-2 assay is only for use under the Food and Drug Administration Emergency Use Authorization. Testing is limited to laboratories certified under the Clinical Laboratory Improvement Amendments of 1988 (CLIA), 42 U.S.C. 263a, to perform high complexity tests. Performed By: #### 3 1791 #### [facility] [address] [place], [place] [id number] [place] [address] CBC COMPLETE BLOOD COUNTon 1 06-19-2019 Erythrocyte distribution width (RBC) [Ratio] 14.6 % Normal 11.5-15.0 [facility] Comment on above: Order Comment: No: D o not add to previous drawMissed pt has to go to the bathroom ask to come back Performed By: #### 8 [id number] #### [facility] [address] [place] [address], [facility] Hematocrit (Bld) [Volume fraction] 43.6 % Normal 36.0-45.0 The [facility] Comment on above: Order Comment: No: D o not add to previous drawMissed pt has to go to the bathroom ask to come back Performed By: #### 8 [id number] #### [facility] [address] Hemoglobin (Bld) [Mass/Vol] 13.8 g/dL Normal 12.0-15.0 The [facility] Comment on above: Order Comment: No: D o not add to previous drawMissed pt has to go to the bathroom ask to come back Performed By: #### 8 5499 #### [facility] [address] [facility] [address] MCH (RBC) [Entitic mass] 28.9 pg Normal 27.0-33.0 The [facility] Comment on above: Order Comment: No: D o not add to previous drawMissed pt has to go to the bathroom ask to come back Performed By: #### 8 5499 #### [facility] [address] MCHC (RBC) [Mass/Vol] 31.7 g/dL Low 32.0-35.0 The [facility] Comment on above: Order Comment: No: D o not add to previous drawMissed pt has to go to the bathroom ask to come back Performed By: #### 8 5499 #### [facility] [address] [facility] [place] [address], [facility] MCV (RBC) [Entitic vol] 91.2 fL Normal 82.0-98.0 The [facility] Comment on above: Order Comment: No: D o not add to previous drawMissed pt has to go to the bathroom ask to come back Performed By: #### 8 5499 #### [facility] [address] [facility]. [address] Nucleated RBC/100 WBC (Bld) [Ratio] 0 % Normal 0-0 The [facility] Comment on above: Order Comment: No: D o not add to previous drawMissed pt has to go to the bathroom ask to come back Performed By: #### 8 5499 #### [facility] [address] [facility] [place] [address], [facility] PLAT CNT 338 10*3/uL Normal 150-400 The [facility] Comment on above: Order Comment: No: D o not add to previous drawMissed pt has to go to the bathroom ask to come back Performed By: #### 8 5499 #### [facility] [address] RBC (Bld) [#/Vol] 4.78 10*6/uL Normal 3.80-5.00 The [facility] Comment on above: Order Comment: No: D o not add to previous drawMissed pt has to go to the bathroom ask to come back Performed By: #### 8 5499 #### [facility] [address] [facility]. [address] WBC (Bld) [#/Vol] 10.61 10*3/uL High 4.00-10.60 The [facility] Comment on above: Order Comment: No: D o not add to previous drawMissed pt has to go to the bathroom ask to come back Performed By: #### 8 5499 #### [facility] [address] Endoscopy Reporton 0 Endoscopy Report MR#: [id number] [facility] Pt. Name: Hortensia Bates Surgery Date: 04/18/2020 Room #: 3AB [id number] Date of : 1955 PROCEDURE NOTE ATTENDING: Arley Sanchez M.D. HELP DESK SUPPORT SPECIALIST: Edmond Watkins MD PROCEDURE: Colonoscopy. INDICATION: This [...] to the patient being on anticoagulation. 3. Mqvalkhi-mu-bujgso sigmoid diverticulosis. 4. Poor bowel prep with [...] Watkins MD Date Trans: 04/18/2020 07:10 P/lazarus [id number] Normal The [facility] POC GLUCOSE LABon 04-18-2020 Glucose [Mass/Vol] 111 mg/dL High 70-100 The [facility] Comment on above: Performed By: #### 3 1792 #### [facility] [address] [place] [address], [place] Glucose [Mass/Vol] 84 mg/dL Normal 70-100 The [facility] Comment on above: Performed By: #### 8 5499 ####[facility] [place] [address], [place] Glucose [Mass/Vol] 87 mg/dL Normal 70-100 The [facility] Comment on above: Performed By: #### 3 1792 #### [facility] [address] [place] [address], [place] Glucose [Mass/Vol] 86 mg/dL Normal 70-100 The [facility] Comment on above: Performed By: #### 8 5499 ####[facility] [place] [address], [place] Glucose [Mass/Vol] 104 mg/dL High 70-100 [facility] Comment on above: Performed By: #### 8 5499 #### [facility] [address] [facility]. [address] PROTHROMBIN TIMEon 0 INR Coag (PPP) [Relative time] 1.85 {INR} High 0.91-1.16 The [facility] Comment on above: Order Comment: [...] CHEST 1995;108:[id number]. Performed By: #### 1 0070, 09601 #### [facility] [address] [facility] [address] PT Coag (PPP) [Time] 21.4 s High 12.3-14.8 The [facility] Comment on above: Order Comment: No: D o not add to previous draw Result Comment: ALL RESULTS MUST BE INTERPRETED WITH RESPECT TO BLOOD DRAWING ARTIFACT OR DILUTION ERROR OF ANTICOAGULANT AT THE TIME OF SAMPLING. Performed By: #### 1 0070, 46210 #### [facility] [address] [facility]. [address] CBC COMPLETE BLOOD COUNTon 06-18-2019 Erythrocyte distribution width (RBC) [Ratio] 14.6 % Normal 11.5-15.0 The [facility] Comment on above: Order Comment: Unkno wn Performed By: #### 8 [id number] #### [facility] [address] [place] [address], [facility] Hematocrit (Bld) [Volume fraction] 41.7 % Normal 36.0-45.0 The [facility] Comment on above: Order Comment: Unkno wn Performed By: #### 8 5499 #### [facility] [address] [place] [address], [place] Hemoglobin (Bld) [Mass/Vol] 13.4 g/dL Normal 12.0-15.0 The [facility] Comment on above: Order Comment: Unkno wn Performed By: #### 8 5499 #### [facility] [address] [place] [address], [place] MCH (RBC) [Entitic mass] 29.0 pg Normal 27.0-33.0 The [facility] Comment on above: Order Comment: Unkno wn Performed By: #### 8 5499 #### [facility] [address] [place] [address], [place] MCHC (RBC) [Mass/Vol] 32.1 g/dL Normal 32.0-35.0 The [facility] Comment on above: Order Comment: Unkno wn Performed By: #### 8 5499 #### [facility] [address] [place] [address], [place] MCV (RBC) [Entitic vol] 90.3 fL Normal 82.0-98.0 The [facility] Comment on above: Order Comment: Unkno wn Performed By: #### 8 5499 #### [facility] [address] [place] [address], [place] Nucleated RBC/100 WBC (Bld) [Ratio] 0 % Normal 0-0 The [facility] Comment on above: Order Comment: Unkno wn Performed By: #### 8 5499 #### [facility] [address] [facility] [place] [address], [facility] PLAT CNT 294 10*3/uL Normal 150-400 The [facility] Comment on above: Order Comment: Unkno wn Performed By: #### 8 5499 #### [facility] [address] [place] [address], [facility] RBC (Bld) [#/Vol] 4.62 10*6/uL Normal 3.80-5.00 The [facility] Comment on above: Order Comment: Unkno wn Performed By: #### 8 5499 #### [facility] [address] [facility] [place] [address], [facility] WBC (Bld) [#/Vol] 9.33 10*3/uL Normal 4.00-10.60 The [facility] Comment on above: Order Comment: Unkno wn Performed By: #### 8 5499 #### [facility] [address] CBC W/DIFFon 04-17-2020 ABS IMM GRANS 0.0 10*3/uL Normal 0.0-0.2 The [facility] Comment on above: Order Comment: No: D o not add to previous draw Performed By: #### 8 5499 #### [facility] [address] ABS NEUTROPHILS 6.4 10*3/uL Normal 1.6-7.6 The [facility] Comment on above: Order Comment: No: D o not add to previous draw Performed By: #### 8 5499 #### [facility] [address] [place] [address], [facility] Basophils (Bld) [#/Vol] 0.1 10*3/uL Normal 0.0-0.2 The [facility] Comment on above: Order Comment: No: D o not add to previous draw Performed By: #### 8 5499 #### [facility] [address] [place] [address], [facility] Basophils/100 WBC (Bld) 0.8 % Normal 0.0-1.0 The [facility] Comment on above: Order Comment: No: D o not add to previous draw Performed By: #### 8 5499 #### [facility] [address] [place] [address], [place] Eosinophils (Bld) [#/Vol] 0.4 10*3/uL Normal 0.0-0.5 The [facility] Comment on above: Order Comment: No: D o not add to previous draw Performed By: #### 8 5499 #### [facility] [address] [place] [address], [facility] Eosinophils/100 WBC (Bld) 3.3 % Normal 0.0-6.0 The [facility] Comment on above: Order Comment: No: D o not add to previous draw Performed By: #### 8 5499 #### [facility] [address] [place] [id number], [facility] Erythrocyte distribution width (RBC) [Ratio] 14.6 % Normal 11.5-15.0 The [facility] Comment on above: Order Comment: No: D o not add to previous draw Performed By: #### 8 [id number] #### [facility] [address] [place] [address], [facility] Hematocrit (Bld) [Volume fraction] 43.6 % Normal 36.0-45.0 The [facility] Comment on above: Order Comment: No: D o not add to previous draw Performed By: #### 8 5499 #### [facility] [address] [place] [address], [place] Hemoglobin (Bld) [Mass/Vol] 14.1 g/dL Normal 12.0-15.0 The [facility] Comment on above: Order Comment: No: D o not add to previous draw Performed By: #### 8 5499 #### [facility] [address] [place] [id number], [facility] IMMATURE GRANS 0.4 % Normal 0.0-1.0 The [facility] Comment on above: Order Comment: No: D o not add to previous draw Performed By: #### 8 5499 #### [facility] [address] [place] [id number], [facility] Lymphocytes (Bld) [#/Vol] 3.2 10*3/uL Normal 1.2-4.0 The [facility] Comment on above: Order Comment: No: D o not add to previous draw Performed By: #### 8 5499 #### [facility] [address] [place] [address], [facility] Lymphocytes/100 WBC (Bld) 29.7 % Normal 20.0-45.0 The [facility] Comment on above: Order Comment: No: D o not add to previous draw Performed By: #### 8 5499 #### [facility] [address] [place] [id number], [facility] MCH (RBC) [Entitic mass] 29.1 pg Normal 27.0-33.0 The [facility] Comment on above: Order Comment: No: D o not add to previous draw Performed By: #### 8 5499 #### [facility] [address] [facility] [place] [id number], [facility] MCHC (RBC) [Mass/Vol] 32.3 g/dL Normal 32.0-35.0 The [facility] Comment on above: Order Comment: No: D o not add to previous draw Performed By: #### 8 5499 #### [facility] [address] [place] [id number], [facility] MCV (RBC) [Entitic vol] 89.9 fL Normal 82.0-98.0 The [facility] Comment on above: Order Comment: No: D o not add to previous draw Performed By: #### 8 5499 #### [facility] [address] [place] [id number], [facility] Monocytes (Bld) [#/Vol] 0.7 10*3/uL Normal 0.1-1.0 The [facility] Comment on above: Order Comment: No: D o not add to previous draw Performed By: #### 8 5499 #### [facility] [address] [place] [address], [facility] MONOS 6.8 % Normal 5.0-12.0 The [facility] Comment on above: Order Comment: No: D o not add to previous draw Performed By: #### 8 5499 #### [facility] [address] [place] [address], [facility] Neutrophils/100 WBC (Bld) 59.0 % Normal 40.0-72.0 The [facility] Comment on above: Order Comment: No: D o not add to previous draw Performed By: #### 8 5499 #### [facility] [address] [place] [id number], [facility] Nucleated RBC/100 WBC (Bld) [Ratio] 0 % Normal 0-0 The [facility] Comment on above: Order Comment: No: D o not add to previous draw Performed By: #### 8 5499 #### [facility] [address] [place] [id number], [facility] PLAT CNT 332 10*3/uL Normal 150-400 The [facility] Comment on above: Order Comment: No: D o not add to previous draw Performed By: #### 8 5499 #### [facility] [address] [place] [id number], [facility] RBC (Bld) [#/Vol] 4.85 10*6/uL Normal 3.80-5.00 The [facility] Comment on above: Order Comment: No: D o not add to previous draw Performed By: #### 8 5499 #### [facility] [address] [facility] [place] [address], [facility] WBC (Bld) [#/Vol] 10.90 10*3/uL High 4.00-10.60 The [facility] Comment on above: Order Comment: No: D o not add to previous draw Performed By: #### 8 5499 #### [facility] [address] [facility] [place] [address], [facility] POC GLUCOSE LABon 04-17-2020 Glucose [Mass/Vol] 109 mg/dL High 70-100 The [facility] Comment on above: Performed By: #### 3 1792 #### [facility] [address] [facility] [place] [address], [facility] Glucose [Mass/Vol] 93 mg/dL Normal 70-100 The [facility] Comment on above: Performed By: #### 3 5200 #### [facility] [address] [facility] [place] [address], [facility] Glucose [Mass/Vol] 101 mg/dL High 70-100 The [facility] Comment on above: Performed By: #### 8 5499 ####[facility] [place] [address], [facility] Glucose [Mass/Vol] 106 mg/dL High 70-100 The [facility] Comment on above: Performed By: #### 8 5499 #### [facility] [address] *BLOOD CULTUREon 04-16-2020 *BLOOD CULTURE Clinical Report: (D) Specimen: BLOOD CULTURE Collected: 04/16/2020 00:31 Status: Final Last Updated: 04/21/2020 06:49 CULT RES (Final) No Growth Day 5 Normal The [facility] Comment on above: Performed By: #### 8 [id number] #### [facility] [address] [facility] [place] [address], [facility] APTTon 04-16-2020 aPTT Coag (Bld) [Time] 72.4 s Critically high 25.0-35.0 [facility] Comment on above: Order Comment: No: [...] IU/ml . Performed By: #### 1 69, 24558 #### [facility] [address] [place] [address], [facility] BASIC METABOLIC PANELon 11-3 Calcium [Mass/Vol] 9.5 mg/dL Normal 8.6-10.3 [facility] Comment on above: Order Comment: No: D o not add to previous draw Performed By: #### 1 69, 40714 #### [facility] [address] [place] [address], [place] Chloride [Moles/Vol] 102 mmol/L Normal 98-107 The [facility] Comment on above: Order Comment: No: D o not add to previous draw Performed By: #### 1 69, 66654 #### [facility] [address] [place] [address], [place] CO2 [Moles/Vol] 25 mmol/L Normal 21-31 The [facility] Comment on above: Order Comment: No: D o not add to previous draw Performed By: #### 1 69, 26609 #### [facility] [address] [place] [address], [place] Creatinine [Mass/Vol] 0.69 mg/dL Normal 0.60-1.20 The [facility] Comment on above: Order Comment: No: D o not add to previous draw Performed By: #### 1 0070, 91686 #### [facility] [address] [place] [address], [place] GFR/1.73 sq M.predicted among blacks MDRD (S/P/Bld) [Vol rate/Area] mL/min/{1.73_m2} Normal >60 The [facility] Comment on above: Order Comment: No: D o not add to previous draw Performed By: #### 1 0, 67219 #### [facility] [address] [place] [address], [place] GFR/1.73 sq M.predicted among non-blacks MDRD (S/P/Bld) [Vol rate/Area] mL/min/{1.73_m2} Normal >60 The [facility] Comment on above: Order Comment: No: D o not add to previous draw Performed By: #### 1 69, 26275 #### [facility] [address] [place] [address], [place] Glucose [Mass/Vol] 102 mg/dL High 70-100 The [facility] Comment on above: Order Comment: No: D o not add to previous draw Performed By: #### 1 0, 44259 #### [facility] [address] [place] [address], [place] Potassium [Moles/Vol] 3.5 mmol/L Normal 3.5-5.1 The [facility] Comment on above: Order Comment: No: D o not add to previous draw Performed By: #### 1 0, 00969 #### [facility] [address] [place] [address], [place] Sodium [Moles/Vol] 136 mmol/L Normal 136-145 The [facility] Comment on above: Order Comment: No: D o not add to previous draw Performed By: #### 1 0, 87917 #### [facility] [address] [place] [address], [place] Urea nitrogen [Mass/Vol] 14 mg/dL Normal 7-25 The [facility] Comment on above: Order Comment: No: D o not add to previous draw Performed By: #### 1 0070, 76555 #### [facility] [address] [place] [address], [place] Calcium [Mass/Vol] 10.0 mg/dL Normal 8.6-10.3 [facility] Comment on above: Order Comment: No: D o not add to previous draw Performed By: #### 3 179 #### [facility] [address] [place] [address], [place] Chloride [Moles/Vol] 101 mmol/L Normal 98-107 The [facility] Comment on above: Order Comment: No: D o not add to previous draw Performed By: #### 3 179 #### [facility] [address] [place] [address], [place] CO2 [Moles/Vol] 26 mmol/L Normal 21-31 The [facility] Comment on above: Order Comment: No: D o not add to previous draw Performed By: #### 3 179 #### [facility] [address] [place] [address], [place] Creatinine [Mass/Vol] 0.74 mg/dL Normal 0.60-1.20 The [facility] Comment on above: Order Comment: No: D o not add to previous draw Performed By: #### 3 179 #### [facility] [address] [place] [address], [place] GFR/1.73 sq M.predicted among blacks MDRD (S/P/Bld) [Vol rate/Area] mL/min/{1.73_m2} Normal >60 The [facility] Comment on above: Order Comment: No: D o not add to previous draw Performed By: #### 3 179 #### [facility] [address] [place] [address], [facility] GFR/1.73 sq M.predicted among non-blacks MDRD (S/P/Bld) [Vol rate/Area] mL/min/{1.73_m2} Normal >60 The [facility] Comment on above: Order Comment: No: D o not add to previous draw Performed By: #### 3 1791 #### [facility] [address] [place] [address], [facility] Glucose [Mass/Vol] 109 mg/dL High 70-100 The [facility] Comment on above: Order Comment: No: D o not add to previous draw Performed By: #### 3 1791 #### [facility] [address] [place] [address], [facility] Potassium [Moles/Vol] 3.7 mmol/L Normal 3.5-5.1 The [facility] Comment on above: Order Comment: No: D o not add to previous draw Performed By: #### 3 1 #### [facility] [address] [place] [address], [facility] Sodium [Moles/Vol] 136 mmol/L Normal 136-145 The [facility] Comment on above: Order Comment: No: D o not add to previous draw Performed By: #### 3 179 #### [facility] [address] [place] [address], [facility] Urea nitrogen [Mass/Vol] 14 mg/dL Normal 7-25 The [facility] Comment on above: Order Comment: No: D o not add to previous draw Performed By: #### 3 179 #### [facility] [address] [place] [address], [facility] CBC W/DIFFon 04-16-2020 ABS IMM GRANS 0.0 10*3/uL Normal 0.0-0.2 The [facility] Comment on above: Order Comment: No: D o not add to previous draw Performed By: #### 8 5499 #### [facility] [address] [place] [address], [facility] ABS NEUTROPHILS 7.2 10*3/uL Normal 1.6-7.6 The [facility] Comment on above: Order Comment: No: D o not add to previous draw Performed By: #### 8 5499 #### [facility] [address] [place] [address], [place] Basophils (Bld) [#/Vol] 0.1 10*3/uL Normal 0.0-0.2 The [facility] Comment on above: Order Comment: No: D o not add to previous draw Performed By: #### 8 5499 #### [facility] [address] [place] [address], [facility] Basophils/100 WBC (Bld) 0.7 % Normal 0.0-1.0 The [facility] Comment on above: Order Comment: No: D o not add to previous draw Performed By: #### 8 5499 #### [facility] [address] [place] [address], [facility] Eosinophils (Bld) [#/Vol] 0.2 10*3/uL Normal 0.0-0.5 The [facility] Comment on above: Order Comment: No: D o not add to previous draw Performed By: #### 8 5499 #### [facility] [address] [place] [id number], [facility] Eosinophils/100 WBC (Bld) 2.1 % Normal 0.0-6.0 The [facility] Comment on above: Order Comment: No: D o not add to previous draw Performed By: #### 8 5499 #### [facility] [address] [place] [id number], [place] Erythrocyte distribution width (RBC) [Ratio] 14.4 % Normal 11.5-15.0 The [facility] Comment on above: Order Comment: No: D o not add to previous draw Performed By: #### 8 5499 #### [facility] [address] [place] [id number], [facility] Hematocrit (Bld) [Volume fraction] 43.2 % Normal 36.0-45.0 The [facility] Comment on above: Order Comment: No: D o not add to previous draw Performed By: #### 8 5499 #### [facility] [address] [place] [address], [facility] Hemoglobin (Bld) [Mass/Vol] 14.2 g/dL Normal 12.0-15.0 The [facility] Comment on above: Order Comment: No: D o not add to previous draw Performed By: #### 8 5499 #### [facility] [address] [place] [address], [facility] IMMATURE GRANS 0.3 % Normal 0.0-1.0 The [facility] Comment on above: Order Comment: No: D o not add to previous draw Performed By: #### 8 5499 #### [facility] [address] [address], [facility] Lymphocytes (Bld) [#/Vol] 2.9 10*3/uL Normal 1.2-4.0 The [facility] Comment on above: Order Comment: No: D o not add to previous draw Performed By: #### 8 5499 #### [facility] [address] [address], [facility] Lymphocytes/100 WBC (Bld) 25.1 % Normal 20.0-45.0 The [facility] Comment on above: Order Comment: No: D o not add to previous draw Performed By: #### 8 5499 #### [facility] [address] [place] [id number], [facility] MCH (RBC) [Entitic mass] 29.5 pg Normal 27.0-33.0 The [facility] Comment on above: Order Comment: No: D o not add to previous draw Performed By: #### 8 5499 #### [facility] [address] [place] [id number], [facility] MCHC (RBC) [Mass/Vol] 32.9 g/dL Normal 32.0-35.0 The [facility] Comment on above: Order Comment: No: D o not add to previous draw Performed By: #### 8 5499 #### [facility] [address] [place] [address], [facility] MCV (RBC) [Entitic vol] 89.8 fL Normal 82.0-98.0 The [facility] Comment on above: Order Comment: No: D o not add to previous draw Performed By: #### 8 5499 #### [facility] [address] [place] [address], [facility] Monocytes (Bld) [#/Vol] 0.9 10*3/uL Normal 0.1-1.0 The [facility] Comment on above: Order Comment: No: D o not add to previous draw Performed By: #### 8 5499 #### [facility] [address] [place] [address], [facility] MONOS 8.0 % Normal 5.0-12.0 The [facility] Comment on above: Order Comment: No: D o not add to previous draw Performed By: #### 8 5499 #### [facility] [address] [facility] [place] [address], [facility] Neutrophils/100 WBC (Bld) 63.8 % Normal 40.0-72.0 The [facility] Comment on above: Order Comment: No: D o not add to previous draw Performed By: #### 8 5499 #### [facility] [address] [place] [address], [facility] Nucleated RBC/100 WBC (Bld) [Ratio] 0 % Normal 0-0 The [facility] Comment on above: Order Comment: No: D o not add to previous draw Performed By: #### 8 5499 #### [address] PLAT CNT 335 10*3/uL Normal 150-400 The [facility] Comment on above: Order Comment: No: D o not add to previous draw Performed By: #### 8 5499 #### [place] [address], [facility] RBC (Bld) [#/Vol] 4.81 10*6/uL Normal 3.80-5.00 The [facility] Comment on above: Order Comment: No: D o not add to previous draw Performed By: #### 8 5499 #### [place] [address], [facility] WBC (Bld) [#/Vol] 11.34 10*3/uL High 4.00-10.60 [facility] Comment on above: Order Comment: No: D o not add to previous draw Performed By: #### 8 5499 #### [place] [address], [facility] CTA CHESTon 04-16-2020 CTA CHEST [facility] Department of Radiology [address] [place] [id number] Patient Name: HORTENSIA BATES : 1955 Sex: F Age: Race: White Pt. Location: [id number] Patient Status: D Ordered Date: 04/16/2020 9:05:00 [...] concurrent physician supervision. Electronically signed: La Nena Scherer. Addendum Ends CTA CHEST 04/16/2020 11:01 AM [...] criteria Electronically signed: Jax Perez. Transcribed by: [email or web address], User Resident: Electronically Signed by: LA NENA SCHERER @ 05/28/2020 12:26 AM Normal The [facility] Comment on above: Order Comment: Other , Planned for AFib albation, anatomy of pulmonary veins MAGNESIUM BLOODon 04-16-2020 Magnesium [Mass/Vol] 1.7 mg/dL Low 1.9-2.7 The [facility] Comment on above: Order Comment: No: D o not add to previous draw Performed By: #### 1 0070, 03249 #### [facility] [address] [facility]. [address] Magnesium [Mass/Vol] 1.8 mg/dL Low 1.9-2.7 The [facility] Comment on above: Order Comment: No: D o not add to previous draw Performed By: #### 1 0070, 23107 #### [facility] [address] [place] [address], [facility] PHOSPHORUS BLOODon 0 Phosphate [Mass/Vol] 3.6 mg/dL Normal 2.5-5.0 The [facility] Comment on above: Order Comment: No: D o not add to previous draw Performed By: #### 1 0070, 43448 #### [facility] [address] [place] [address], [facility] POC GLUCOSE LABon 04-16-2020 Glucose [Mass/Vol] 111 mg/dL High 70-100 [facility] Comment on above: Performed By: #### 8 5499 ####[facility] [place] [address], [place] Glucose [Mass/Vol] 122 mg/dL High 70-100 [facility] Comment on above: Performed By: #### 3 5200 #### [facility] [address] [place] [address], [place] Glucose [Mass/Vol] 105 mg/dL High 70-100 [facility] Comment on above: Performed By: #### 8 5499 ####[facility] [place] [address], [place] Glucose [Mass/Vol] 106 mg/dL High 70-100 [facility] Comment on above: Performed By: #### 8 5499 #### [facility] [address] [place] [address], [facility] PROTHROMBIN TIMEon 0 INR Coag (PPP) [Relative time] 2.24 {INR} High 0.91-1.16 The [facility] Comment on above: Order Comment: [...] CHEST 1995;108:231S-246S. Performed By: #### 1 0070, 00353 #### [facility] [address] [place] [address], [facility] PT Coag (PPP) [Time] 24.9 s High 12.3-14.8 [facility] Comment on above: Order Comment: No: D o not add to previous draw Result Comment: ALL RESULTS MUST BE INTERPRETED WITH RESPECT TO BLOOD DRAWING ARTIFACT OR DILUTION ERROR OF ANTICOAGULANT AT THE TIME OF SAMPLING. Performed By: #### 1 0070, 07061 #### [facility] [address] [facility] [place] [address], [facility] TROPONIN-Ion 04-16-2020 Troponin I.cardiac [Mass/Vol] 0.01 ng/mL Normal 0.00-0.04 [facility] Comment on above: Order Comment: No: D o not add to previous draw Result Comment: REFE RENCE RANGES: 0.00 - 0.04 ng/ml NORMAL 0.05 - 0.50 ng/ml INDETERMINATE > 0.50 ng/ml CONSISTENT WITH AN M.I. Performed By: #### 3 5200 #### [facility] [address] [place] [address], [facility] Troponin I.cardiac [Mass/Vol] 0.01 ng/mL Normal 0.00-0.04 The [facility] Comment on above: Order Comment: No: D o not add to previous draw Result Comment: REFE RENCE RANGES: 0.00 - 0.04 ng/ml NORMAL 0.05 - 0.50 ng/ml INDETERMINATE > 0.50 ng/ml CONSISTENT WITH AN M.I. Performed By: #### 3 1791 #### [facility] [address] Troponin I.cardiac [Mass/Vol] 0.01 ng/mL Normal 0.00-0.04 The [facility] Comment on above: Order Comment: No: D o not add to previous draw Result Comment: REFE RENCE RANGES: 0.00 - 0.04 ng/ml NORMAL 0.05 - 0.50 ng/ml INDETERMINATE > 0.50 ng/ml CONSISTENT WITH AN M.I. Performed By: #### 3 1791 #### [facility] [address] [facility]. [address] UFH HEPARIN ASSAYon 04-16-20 20 UNFRACTIONATED HEPARIN 0.28 IU/mL Low 0.30-0.70 The [facility] Comment on above: Result Comment: Chancellor roxaban and Apixaban will interfere with the anti Xa assay used to monitor UFH and LMWH. Performed By: #### 1 0070, 55424 #### [facility] [address] [facility] [address] MAGNESIUM BLOODon 04-01-2020 Magnesium [Mass/Vol] 2.0 mg/dL Normal 1.9-2.7 The [facility] Comment on above: Order Comment: No: D o not add to previous draw Performed By: #### 1 0070, 22602 #### [facility] [address] [facility] [place] [address], [facility] POTASSIUM BLOODon 04-01-2020 Potassium [Moles/Vol] 3.6 mmol/L Normal 3.5-5.1 The [facility] Comment on above: Order Comment: No: D o not add to previous draw Performed By: #### 1 0070, 41576 #### [facility] [address] [facility] [place] [address], [facility] PROTHROMBIN TIMEon 0 INR Coag (PPP) [Relative time] 1.99 {INR} High 0.91-1.16 The [facility] Comment on above: Order Comment: [...] 1995;108:231S-246S. Performed By: #### 8 5499 #### [facility] [address] PT Coag (PPP) [Time] 22.7 s High 12.3-14.8 The [facility] Comment on above: Order Comment: Lashaun claudio Result Comment: ALL RESULTS MUST BE INTERPRETED WITH RESPECT TO BLOOD DRAWING ARTIFACT OR DILUTION ERROR OF ANTICOAGULANT AT THE TIME OF SAMPLING. Performed By: #### 8 5499 #### [facility] [address] [facility] [address] BASIC METABOLIC PANELon 11- Calcium [Mass/Vol] 8.8 mg/dL Normal 8.6-10.3 The [facility] Comment on above: Order Comment: No: D o not add to previous draw Performed By: #### 1 0070, 58500 #### [facility] [address] [place] [address], [facility] Chloride [Moles/Vol] 103 mmol/L Normal 98-107 The [facility] Comment on above: Order Comment: No: D o not add to previous draw Performed By: #### 1 0070, 43236 #### [facility] [address] [place] [address], [place] CO2 [Moles/Vol] 26 mmol/L Normal 21-31 The [facility] Comment on above: Order Comment: No: D o not add to previous draw Performed By: #### 1 0070, 91102 #### [facility] [address] [place] [address], [place] Creatinine [Mass/Vol] 0.75 mg/dL Normal 0.60-1.20 [facility] Comment on above: Order Comment: No: D o not add to previous draw Performed By: #### 1 0, 94170 #### [facility] [address] [place] [address], [place] GFR/1.73 sq M.predicted among blacks MDRD (S/P/Bld) [Vol rate/Area] mL/min/{1.73_m2} Normal >60 [facility] Comment on above: Order Comment: No: D o not add to previous draw Performed By: #### 1 0, 02130 #### [facility] [address] [place] [address], [place] GFR/1.73 sq M.predicted among non-blacks MDRD (S/P/Bld) [Vol rate/Area] mL/min/{1.73_m2} Normal >60 [facility] Comment on above: Order Comment: No: D o not add to previous draw Performed By: #### 1 0070, 56950 #### [facility] [address] [place] [address], [place] Glucose [Mass/Vol] 88 mg/dL Normal 70-100 [facility] Comment on above: Order Comment: No: D o not add to previous draw Performed By: #### 1 0070, 07284 #### [facility] [address] [place] [address], [place] Potassium [Moles/Vol] 3.8 mmol/L Normal 3.5-5.1 The [facility] Comment on above: Order Comment: No: D o not add to previous draw Performed By: #### 1 0070, 97289 #### [facility] [address] [place] [address], [place] Sodium [Moles/Vol] 135 mmol/L Low 136-145 The [facility] Comment on above: Order Comment: No: D o not add to previous draw Performed By: #### 1 0070, 29162 #### [facility] [address] [place] [address], [place] Urea nitrogen [Mass/Vol] 17 mg/dL Normal 7-25 The [facility] Comment on above: Order Comment: No: D o not add to previous draw Performed By: #### 1 0, 82755 #### [facility] [address] [place] [address], [place] MAGNESIUM BLOODon 03-31-2020 Magnesium [Mass/Vol] 1.9 mg/dL Normal 1.9-2.7 The [facility] Comment on above: Order Comment: No: D o not add to previous draw Performed By: #### 1 0070, 64026 #### [facility] [address] [place] [address], [place] POC GLUCOSE LABon 03-31-2020 Glucose [Mass/Vol] 95 mg/dL Normal 70-100 The [facility] Comment on above: Performed By: #### 3 5200 #### [facility] [address] [place] [address], [place] Glucose [Mass/Vol] 86 mg/dL Normal 70-100 The [facility] Comment on above: Performed By: #### 8 5499 #### [facility] [address] [place] [address], [place] Glucose [Mass/Vol] 82 mg/dL Normal 70-100 The [facility] Comment on above: Performed By: #### 3 1792 #### [facility] [address] [facility] [place] [address], [facility] Glucose [Mass/Vol] 92 mg/dL Normal 70-100 The [facility] Comment on above: Performed By: #### 8 5499 ####[facility] [facility] [place] [address], [facility] Glucose [Mass/Vol] 96 mg/dL Normal 70-100 The [facility] Comment on above: Performed By: #### 8 5499 ####[facility] PROTHROMBIN TIMEon 0 INR Coag (PPP) [Relative time] 1.80 {INR} High 0.91-1.16 The [facility] Comment on above: Order Comment: [...] CHEST 1995;108:231S-246S. Performed By: #### 1 0070, 06331 #### [facility] [address] [place] [address], [facility] PT Coag (PPP) [Time] 21.0 s High 12.3-14.8 [facility] Comment on above: Order Comment: No: D o not add to previous draw Result Comment: ALL RESULTS MUST BE INTERPRETED WITH RESPECT TO BLOOD DRAWING ARTIFACT OR DILUTION ERROR OF ANTICOAGULANT AT THE TIME OF SAMPLING. Performed By: #### 1 0, 80307 #### [facility] [address] [place] [address], [facility] BASIC METABOLIC PANELon 11- Calcium [Mass/Vol] 9.0 mg/dL Normal 8.6-10.3 [facility] Comment on above: Order Comment: No: D o not add to previous draw Performed By: #### 1 69, 33629 #### [facility] [address] [place] [address], [facility] Chloride [Moles/Vol] 101 mmol/L Normal 98-107 The [facility] Comment on above: Order Comment: No: D o not add to previous draw Performed By: #### 1 69, 59374 #### [facility] [address] [facility] [place] [address], [facility] CO2 [Moles/Vol] 25 mmol/L Normal 21-31 The [facility] Comment on above: Order Comment: No: D o not add to previous draw Performed By: #### 1 69, 80387 #### [facility] [address] [place] [address], [facility] Creatinine [Mass/Vol] 0.90 mg/dL Normal 0.60-1.20 The [facility] Comment on above: Order Comment: No: D o not add to previous draw Performed By: #### 1 69, 47236 #### [facility] [address] [place] [address], [facility] GFR/1.73 sq M.predicted among blacks MDRD (S/P/Bld) [Vol rate/Area] mL/min/{1.73_m2} Normal >60 The [facility] Comment on above: Order Comment: No: D o not add to previous draw Performed By: #### 1 0, 04000 #### [facility] [address] [place] [address], [place] GFR/1.73 sq M.predicted among non-blacks MDRD (S/P/Bld) [Vol rate/Area] mL/min/{1.73_m2} Normal >60 The [facility] Comment on above: Order Comment: No: D o not add to previous draw Performed By: #### 1 0, 23934 #### [facility] [address] [place] [address], [place] Glucose [Mass/Vol] 77 mg/dL Normal 70-100 The [facility] Comment on above: Order Comment: No: D o not add to previous draw Performed By: #### 1 0, 74202 #### [facility] [address] [place] [address], [place] Potassium [Moles/Vol] 4.0 mmol/L Normal 3.5-5.1 The [facility] Comment on above: Order Comment: No: D o not add to previous draw Performed By: #### 1 0, 53132 #### [facility] [address] [place] [address], [place] Sodium [Moles/Vol] 135 mmol/L Low 136-145 The [facility] Comment on above: Order Comment: No: D o not add to previous draw Performed By: #### 1 0, 61984 #### [facility] [address] [place] [address], [place] Urea nitrogen [Mass/Vol] 17 mg/dL Normal 7-25 The [facility] Comment on above: Order Comment: No: D o not add to previous draw Performed By: #### 1 69, 92589 #### [facility] [address] [place] [address], [place] CBC COMPLETE BLOOD COUNTon 1 1-13-2020 Erythrocyte distribution width (RBC) [Ratio] 14.9 % Normal 11.5-15.0 The [facility] Comment on above: Order Comment: No: D o not add to previous draw Performed By: #### 8 [id number] #### [facility] [address] [place] [address], [facility] Hematocrit (Bld) [Volume fraction] 47.5 % High 36.0-45.0 The [facility] Comment on above: Order Comment: No: D o not add to previous draw Performed By: #### 8 [id number] #### [facility] [address] [place] [id number], [facility] Hemoglobin (Bld) [Mass/Vol] 15.3 g/dL High 12.0-15.0 The [facility] Comment on above: Order Comment: No: D o not add to previous draw Performed By: #### 8 [id number] #### [facility] [address] [place] [address], [facility] MCH (RBC) [Entitic mass] 29.7 pg Normal 27.0-33.0 The [facility] Comment on above: Order Comment: No: D o not add to previous draw Performed By: #### 8 [id number] #### [facility] [address] [place] [address], [facility] MCHC (RBC) [Mass/Vol] 32.2 g/dL Normal 32.0-35.0 The [facility] Comment on above: Order Comment: No: D o not add to previous draw Performed By: #### 8 [id number] #### [facility] [address] [place] [address], [place] MCV (RBC) [Entitic vol] 92.1 fL Normal 82.0-98.0 The [facility] Comment on above: Order Comment: No: D o not add to previous draw Performed By: #### 8 [id number] #### [facility] [address] Nucleated RBC/100 WBC (Bld) [Ratio] 0 % Normal 0-0 The [facility] Comment on above: Order Comment: No: D o not add to previous draw Performed By: #### 8 [id number] #### [facility] [address] [place] [address], [facility] PLAT CNT 321 10*3/uL Normal 150-400 The [facility] Comment on above: Order Comment: No: D o not add to previous draw Performed By: #### 8 [id number] #### [facility] [address] [place] [address], [facility] RBC (Bld) [#/Vol] 5.16 10*6/uL High 3.80-5.00 The [facility] Comment on above: Order Comment: No: D o not add to previous draw Performed By: #### 8 5499 #### [facility] [address] [place] [address], [facility] WBC (Bld) [#/Vol] 12.02 10*3/uL High 4.00-10.60 The [facility] Comment on above: Order Comment: No: D o not add to previous draw Performed By: #### 8 5499 #### [facility] [address] Cardiovascular Lab Reporton 03-30-2020 Cardiovascular Lab Report [facility] Patient Name: [facility] Hortensia Berry MR #: [id number] Department of Physician: Jessica Lopez M.D. Division of Service Date: 03/30/2020 Cardiology Birthdate: 1955 Adult Cardiovascular Room #: 3AB [id number] [place] [address] Cardiovascular Laboratory Report CLINICAL PRESENTATION: The patient [...] infiltrated over the right radial artery. A 6-Lithuanian Terumo Glidesheath slender was placed in right radial artery. The radial anti-vasospasm cocktail of verapamil 2.5 mg and nitroglycerin 200 mcg was administered through the sheath. All catheter exchanges were made over the Orteq guidewire. A 5-Lithuanian JR5 was used to engage the right coronary artery. A 5-Lithuanian JL3.5 was used to engage the left [...] Arango M.D. Date Trans: 03/30/2020 01:43 P/mmo [id number] Normal The [facility] MAGNESIUM BLOODon 03-30-2020 Magnesium [Mass/Vol] 2.1 mg/dL Normal 1.9-2.7 The [facility] Comment on above: Order Comment: No: D o not add to previous draw Performed By: #### 1 0070, 76470 #### [facility] [address] [place] [address], [facility] POC GLUCOSE LABon 03-30-2020 Glucose [Mass/Vol] 94 mg/dL Normal 70-100 The [facility] Comment on above: Performed By: #### 8 5499 ####[facility] [facility] [place] [address], [facility] Glucose [Mass/Vol] 95 mg/dL Normal 70-100 The [facility] Comment on above: Performed By: #### 3 5200 #### [facility] [address] [place] [address], [facility] Glucose [Mass/Vol] 86 mg/dL Normal 70-100 The [facility] Comment on above: Performed By: #### 8 5499 ####[facility] [facility] [place] [address], [facility] PROTHROMBIN TIMEon 0 INR Coag (PPP) [Relative time] 1.88 {INR} High 0.91-1.16 The [facility] Comment on above: Order Comment: Yes: Add [...] 1995;108:231S-246S. Performed By: #### 8 5499 #### [facility] [address] [facility]. [address] PT Coag (PPP) [Time] 21.7 s High 12.3-14.8 The [facility] Comment on above: Order Comment: Yes: Add to Previous draw if able Result Comment: ALL RESULTS MUST BE INTERPRETED WITH RESPECT TO BLOOD DRAWING ARTIFACT OR DILUTION ERROR OF ANTICOAGULANT AT THE TIME OF SAMPLING. Performed By: #### 8 [id number] #### [facility] [address] [facility]. [address] *SARS-CoV-2 COVID-19on 03-29 SARS-CoV-2 (COVID-19) RNA JAS+probe Ql (Unsp spec) Not detected Normal Not Detected The [facility] Comment on above: Order Comment: The A ptima SARS-CoV-2 assay is a nucleic acid amplification test intended for the qualitative detection of RNA from SARS-CoV-2 isolated and purified from nasopharyngeal (WAX BALL MOLDER),oropharyngeal (OP), nasal swab, sputum, and bronchoalveolar lavage (BAL) specimens from patients with signs and symptoms of infection who are suspected of COVID-19. Results are for the identification of SARS-CoV-2 RNA. The SARS-CoV-2 RNA is generally detectable during the acute phase of infection. The Aptima SARS-CoV-2 Assay on the [employer] Textbook Time and [place] Fusion system is intended for use by laboratory personnel specifically instructed and trained in the operation of the [place] and [employer] system. The Aptima SARS-CoV-2 assay is [...] information. Performed By: #### 3 1792 #### [facility] [address] APTTon 03-29-2020 aPTT Coag (Bld) [Time] 52.2 s High 25.0-35.0 The [facility] Comment on above: Order Comment: [...] >0.10 Performed By: #### 8 [id number] #### [facility] [address] CBC W/DIFFon 03-29-2020 ABS IMM GRANS 0.0 10*3/uL Normal 0.0-0.2 The [facility] Comment on above: Order Comment: No: D o not add to previous draw Performed By: #### 8 5499 #### [facility] [address] ABS NEUTROPHILS 7.5 10*3/uL Normal 1.6-7.6 The [facility] Comment on above: Order Comment: No: D o not add to previous draw Performed By: #### 8 [id number] #### [facility] [address] Basophils (Bld) [#/Vol] 0.1 10*3/uL Normal 0.0-0.2 The [facility] Comment on above: Order Comment: No: D o not add to previous draw Performed By: #### 8 [id number] #### [facility] [address] [place] [address], [facility] Basophils/100 WBC (Bld) 0.6 % Normal 0.0-1.0 The [facility] Comment on above: Order Comment: No: D o not add to previous draw Performed By: #### 8 5499 #### [facility] [address] [place] [address], [facility] Eosinophils (Bld) [#/Vol] 0.3 10*3/uL Normal 0.0-0.5 The [facility] Comment on above: Order Comment: No: D o not add to previous draw Performed By: #### 8 5499 #### [facility] [address] [place] [address], [facility] Eosinophils/100 WBC (Bld) 2.1 % Normal 0.0-6.0 The [facility] Comment on above: Order Comment: No: D o not add to previous draw Performed By: #### 8 5499 #### [facility] [address] [place] [id number], [facility] Erythrocyte distribution width (RBC) [Ratio] 14.7 % Normal 11.5-15.0 The [facility] Comment on above: Order Comment: No: D o not add to previous draw Performed By: #### 8 [id number] #### [facility] [address] [place] [id number], [facility] Hematocrit (Bld) [Volume fraction] 48.0 % High 36.0-45.0 The [facility] Comment on above: Order Comment: No: D o not add to previous draw Performed By: #### 8 [id number] #### [facility] [address] [place] [address], [facility] Hemoglobin (Bld) [Mass/Vol] 15.5 g/dL High 12.0-15.0 The [facility] Comment on above: Order Comment: No: D o not add to previous draw Performed By: #### 8 [id number] #### [facility] [address] [place] [address], [facility] IMMATURE GRANS 0.3 % Normal 0.0-1.0 The [facility] Comment on above: Order Comment: No: D o not add to previous draw Performed By: #### 8 [id number] #### [facility] [address] [place] [address], [facility] Lymphocytes (Bld) [#/Vol] 3.7 10*3/uL Normal 1.2-4.0 The [facility] Comment on above: Order Comment: No: D o not add to previous draw Performed By: #### 8 5499 #### [facility] [address] [place] [address], [facility] Lymphocytes/100 WBC (Bld) 29.6 % Normal 20.0-45.0 The [facility] Comment on above: Order Comment: No: D o not add to previous draw Performed By: #### 8 [id number] #### [facility] [address] [facility] [place] [address], [facility] MCH (RBC) [Entitic mass] 28.8 pg Normal 27.0-33.0 The [facility] Comment on above: Order Comment: No: D o not add to previous draw Performed By: #### 8 5499 #### [facility] [address] [facility] [place] [address], [facility] MCHC (RBC) [Mass/Vol] 32.3 g/dL Normal 32.0-35.0 The [facility] Comment on above: Order Comment: No: D o not add to previous draw Performed By: #### 8 5499 #### [facility] [address] [place] [id number], [facility] MCV (RBC) [Entitic vol] 89.1 fL Normal 82.0-98.0 The [facility] Comment on above: Order Comment: No: D o not add to previous draw Performed By: #### 8 5499 #### [facility] [address] [place] [address], [facility] Monocytes (Bld) [#/Vol] 0.9 10*3/uL Normal 0.1-1.0 The [facility] Comment on above: Order Comment: No: D o not add to previous draw Performed By: #### 8 5499 #### [facility] [address] [place] [address], [facility] MONOS 7.2 % Normal 5.0-12.0 The [facility] Comment on above: Order Comment: No: D o not add to previous draw Performed By: #### 8 5499 #### [facility] [address] [place] [address], [facility] Neutrophils/100 WBC (Bld) 60.2 % Normal 40.0-72.0 The [facility] Comment on above: Order Comment: No: D o not add to previous draw Performed By: #### 8 [id number] #### [facility] [address] [place] [id number], [facility] Nucleated RBC/100 WBC (Bld) [Ratio] 0 % Normal 0-0 The [facility] Comment on above: Order Comment: No: D o not add to previous draw Performed By: #### 8 5499 #### [facility] [address] [place] [id number], [facility] PLAT CNT 366 10*3/uL Normal 150-400 The [facility] Comment on above: Order Comment: No: D o not add to previous draw Performed By: #### 8 5499 #### [facility] [address] [place] [id number], [facility] RBC (Bld) [#/Vol] 5.39 10*6/uL High 3.80-5.00 The [facility] Comment on above: Order Comment: No: D o not add to previous draw Performed By: #### 8 5499 #### [facility] [address] [place] [address], [place] WBC (Bld) [#/Vol] 12.38 10*3/uL High 4.00-10.60 [facility] Comment on above: Order Comment: No: D o not add to previous draw Performed By: #### 8 5499 #### [facility] [address] [place] [address], [place] COMP METABOLIC PANELon 03-29 Albumin [Mass/Vol] 4.1 g/dL Normal 3.5-5.7 [facility] Comment on above: Order Comment: No: D o not add to previous draw Performed By: #### 1 0, 47654 #### [facility] [address] [place] [address], [place] ALKALINE PHOSPH 48 IU/L Normal 34-104 The [facility] Comment on above: Order Comment: No: D o not add to previous draw Performed By: #### 1 69, 28525 #### [facility] [address] [place] [address], [place] ALT [Catalytic activity/Vol] 19 U/L Normal 7-52 The [facility] Comment on above: Order Comment: No: D o not add to previous draw Performed By: #### 1 0, 30648 #### [facility] [address] [place] [address], [place] AST [Catalytic activity/Vol] 19 U/L Normal 13-39 The [facility] Comment on above: Order Comment: No: D o not add to previous draw Performed By: #### 1 0, 78486 #### [facility] [address] [place] [address], [place] Bilirubin [Mass/Vol] 0.8 mg/dL Normal 0.3-1.0 The [facility] Comment on above: Order Comment: No: D o not add to previous draw Performed By: #### 1 0070, 12166 #### [facility] [address] [place] [address], [place] Calcium [Mass/Vol] 9.8 mg/dL Normal 8.6-10.3 [facility] Comment on above: Order Comment: No: D o not add to previous draw Performed By: #### 1 0070, 86389 #### [facility] [address] [place] [address], [place] Chloride [Moles/Vol] 100 mmol/L Normal 98-107 The [facility] Comment on above: Order Comment: No: D o not add to previous draw Performed By: #### 1 0, 18680 #### [facility] [address] [place] [address], [place] CO2 [Moles/Vol] 26 mmol/L Normal 21-31 [facility] Comment on above: Order Comment: No: D o not add to previous draw Performed By: #### 1 69, 68655 #### [facility] [address] [place] [address], [place] Creatinine [Mass/Vol] 0.71 mg/dL Normal 0.60-1.20 The [facility] Comment on above: Order Comment: No: D o not add to previous draw Performed By: #### 1 69, 47514 #### [facility] [address] [place] [address], [place] GFR/1.73 sq M.predicted among blacks MDRD (S/P/Bld) [Vol rate/Area] mL/min/{1.73_m2} Normal >60 The [facility] Comment on above: Order Comment: No: D o not add to previous draw Performed By: #### 1 0, 39798 #### [facility] [address] [place] [address], [place] GFR/1.73 sq M.predicted among non-blacks MDRD (S/P/Bld) [Vol rate/Area] mL/min/{1.73_m2} Normal >60 The [facility] Comment on above: Order Comment: No: D o not add to previous draw Performed By: #### 1 69, 39009 #### [facility] [address] [place] [address], [place] Glucose [Mass/Vol] 107 mg/dL High 70-100 The [facility] Comment on above: Order Comment: No: D o not add to previous draw Performed By: #### 1 0, 70153 #### [facility] [address] [place] [address], [place] Potassium [Moles/Vol] 3.9 mmol/L Normal 3.5-5.1 The [facility] Comment on above: Order Comment: No: D o not add to previous draw Performed By: #### 1 69, 08214 #### [facility] [address] [place] [address], [place] Protein [Mass/Vol] 7.5 g/dL Normal 6.0-8.3 [facility] Comment on above: Order Comment: No: D o not add to previous draw Performed By: #### 1 69, 02225 #### [facility] [address] [place] [address], [place] Sodium [Moles/Vol] 136 mmol/L Normal 136-145 The [facility] Comment on above: Order Comment: No: D o not add to previous draw Performed By: #### 1 69, 48834 #### [facility] [address] [place] [address], [place] Urea nitrogen [Mass/Vol] 12 mg/dL Normal 7-25 The [facility] Comment on above: Order Comment: No: D o not add to previous draw Performed By: #### 1 69, 14940 #### [facility] [address] [place] [address], [place] D DIMER TESTon 03-29-2020 D-DIMER TEST <0.27 Low 0.27-0.49 The [facility] Comment on above: Order Comment: No: D o not add to previous draw Result Comment: D-Di elisa values of less than 0.50 ug/ml (FEU) are considered to be a negative predictor of thrombosis. However, the D-Dimer result should be used in conjunction with pretest probability and should not be used alone to diagnose a thrombotic event. Performed By: #### 1 0070, 63684 #### [facility] [address] HEMOGLOBIN A1Con 03-29-2020 Glucose [Moles/Vol] 111 mmol/L Normal [facility] Comment on above: Order Comment: No: D o not add to previous draw Performed By: #### 3 1791 #### [facility] [address] [facility] [address] HbA1c (Bld) [Mass fraction] 5.5 % Normal 4.0-6.0 The [facility] Comment on above: Order Comment: No: D o not add to previous draw Performed By: #### 3 1791 #### [facility] [address] [facility] MAGNESIUM BLOODon 03-29-2020 Magnesium [Mass/Vol] 2.0 mg/dL Normal 1.9-2.7 The [facility] Comment on above: Order Comment: No: D o not add to previous draw Performed By: #### 1 0070, 17492 #### [facility] [address] [facility] [address] PROTHROMBIN TIMEon 0 INR Coag (PPP) [Relative time] 1.84 {INR} High 0.91-1.16 The [facility] Comment on above: Order Comment: [...] 1995;108:231S-246S. Performed By: #### 8 5499 #### [facility] [address] [facility]. [address] PT Coag (PPP) [Time] 21.3 s High 12.3-14.8 [facility] Comment on above: Order Comment: No: D o not add to previous draw Result Comment: ALL RESULTS MUST BE INTERPRETED WITH RESPECT TO BLOOD DRAWING ARTIFACT OR DILUTION ERROR OF ANTICOAGULANT AT THE TIME OF SAMPLING. Performed By: #### 8 5499 #### [facility] [address] [facility]. [address] TROPONIN-Ion 03-29-2020 Troponin I.cardiac [Mass/Vol] 0.00 ng/mL Normal 0.00-0.04 [facility] Comment on above: Order Comment: No: D o not add to previous draw Result Comment: REFE RENCE RANGES: 0.00 - 0.14 ng/ml NEGATIVE 0.15 - 0.25 ng/ml INDETERMINATE > 0.25 ng/ml INDICATIVE OF AN M.I. Performed By: #### 1 0070, 52799 #### [facility] [address] TSH3on 03-29-2020 TSH 3RD GENERATION 3.72 uIU/mL Normal 0.34-5.60 [facility] Comment on above: Order Comment: No: D o not add to previous draw Performed By: #### 1 0070, 22443 #### [place] [address] [place] [address], [facility] Vital Signs Date Time Vital Sign Value Performing Clinician Alok bolivar 06-18-2023 09:43-0500 Diastolic blood pressure 101 mm[Hg] Harleen Ly DO Work Phone: [facility] 06-18-2023 09:43-0500 Respiratory rate 16 /min Harleen Ly DO Work Phone: [facility] 06-18-2023 09:43-0500 SaO2% (BldA) [Mass fraction] 97 % Harleen Ly DO Work Phone: [facility] 06-18-2023 09:43-0500 Systolic blood pressure 161 mm[Hg] Harleen Ly DO Work Phone: [facility] 06-18-2023 09:23-0500 Body temperature 97 [degF] Harleen Ly DO Work Phone: [facility] 06-18-2023 07:49-0500 Body height 172.7 cm Harleen Ly DO Work Phone: [facility] 06-18-2023 07:49-0500 Body weight 144.7 kg Harleen Ly DO Work Phone: [facility] 04-29-2023 11:43-0500 Body weight 144.7 kg Harleen Ly DO Work Phone: [facility] 04-29-2023 11:43-0500 Diastolic blood pressure 80 mm[Hg] Harleen Ly DO Work Phone: [facility] 04-29-2023 11:43-0500 Heart rate 78 /min Harleen Ly DO Work Phone: [facility] 04-29-2023 11:43-0500 Systolic blood pressure 140 mm[Hg] Harleen Ly DO Work Phone: [facility] 04-03-2023 07:55-0500 Body height 172.72 cm Kaila Angelita Work Phone: [facility] 04-03-2023 07:55-0500 Body weight 143.33 kg Kaila Angelita Work Phone: [facility] Encounters Encounter Date Encounter Type Care Provider Facility Start: 08-26-2023 End: 08-26-2023 ambulatory KAILA GOLDSTEIN Not Available Start: 06-24-2023 Orders Only Kaila Goldstein W[employer]DER Work Phone: [facility] Comment on above: Multiple lung nodule s (Primary Dx) Start: 06-23-2023 Telephone encounter Harleen Macdonald DO Work Phone: Gastroenterology Comment on above: Results Start: 06-18-2023 ambulatory YANN Haywood ty:[facility] Start: 06-18-2023 End: 06-18-2023 Subsequent hospital visit by physician Harleen Macdonald DO Work Phone: Procedures Comment on above: History of colon marcelo yps [Z86.010] Start: 06-12-2023 End: 06-12-2023 ambulatory UMAIR [facility] Start: 05-04-2023 End: 05-04-2023 ambulatory KAILA GOLDSTEIN Not Available Start: 04-29-2023 End: 04-29-2023 ambulatory HARLEEN LY Facility:[facility] Start: 04-29-2023 End: 04-29-2023 Patient encounter procedure Harleen Ly DO Work Phone: Gastroenterology Comment on above: History of colon marcelo yps (Primary Dx) Start: 04-21-2023 Telephone encounter Carmen Jacob MD Work Phone: Gastroenterology Comment on above: Appointment Start: 04-03-2023 End: 04-03-2023 ambulatory Kaila Goldstein Facility:[facility] Start: 04-03-2023 End: 04-03-2023 ambulatory Kaila Goldstein Work Phone: [facility] Work Phone: Start: 04-03-2023 End: 04-03-2023 Patient encounter procedure Kaila Goldstein Work Phone: [facility] Work Phone: Start: 03-13-2023 ambulatory Facility:[facility] Start: 12-03-2022 End: [facility]03[facility] Start: 09-15-2022 End: 09-16-2022 ambulatory LOAN SECRETARY KAILA AICHHOLZ Facility: Start: 05-01-2022 End: 05-01-2022 ambulatory LOAN SECRETARY KAILA AICJacquieHOLZ Facility:[facility] Start: 03-13-2022 End: 03-14-2022 ambulatory LOAN SECRETARY KAILA AICJacquieHOLZ Facility: Start: 11-02-2020 End: 11-03-2020 ambulatory KAILA AICJacquieHOLZ Facility:[facility] Start: 07-26-2020 End: 07-27-2020 ambulatory KAILA JOSHUAHOLZ Facility:[facility] Start: 04-16-2020 End: 04-23-2020 Evaluation and management of inpatient LULU DEE Facility:[facility] Start: 03-29-2020 End: 04-01-2020 Evaluation and management of inpatient YINA MAKI Facility:[facility] Procedures Date Procedure Procedure Detail Performing Clinician Start: 06-18-2023 Colonoscopy flx dx w /collj spec when pfrmd Harleen Ly DO Work Phone: Start: 06-18-2023 Gluc bld gluc mntr d ev cleared fda spec home use Yann Kuhn MD Work Phone: Start: 06-18-2023 Colonoscopy Harleen Ly DO Work Phone: Start: 04-03-2023 Positron emission tomography with computed tomography Kaila Gomesliset Work Phone: Start: 03-18-2023 Mammography Kaila Marlee jin [employer] M[employer]DER Work Phone: Start: 11-02-2020 Colonoscopy w/biopsy single/multiple YASEEN ALASTAL Start: 11-02-2020 Colonoscopy Harleen Macdonald DO Work Phone: Start: 04-23-2020 EXCISION OF [...] Screening for malign ant neoplasm of colon [facility] Start: 08-16-2024 Glaucoma screening Diabetes: R etinopathy Screening [facility] Start: 06-18-2024 Screening for malign ant neoplasm of colon [facility] Start: 03-18-2024 Screening for malign ant neoplasm of breast Mammogram [facility] Start: 12-10-2023 Medicare Annual Well ness (AWV) Medicare Annual Wellness (AWV) [facility] Start: 11-15-2023 Influenza vaccination Influenza Vacc ine (#1) [facility] Comment on above: Postponed from 01/16 (Patient Refused) Start: 09-16-2023 Urine screening for protein Diabetes: Urine Protein Screening [facility] Start: 08-17-2023 Pneumococcal Vaccine : 65+ Years (1 - PCV) Pneumococcal Vaccine: 65+ Years (1 - PCV) [facility] Comment on above: Postponed from 09/29 (Other Medical Reasons) Start: 08-04-2023 End: 08-04-2023 Patient encounter procedure 08/04/2023 8:40 AM EDT Office Visit [facility] [address] [place] [address] Kaila Goldstein, ANA [address] [place] [id number] [facility] Start: 06-24-2023 End: 06-24-2024 CT Chest WO contrast CT chest wo IV contrast Imaging Routine Multiple lung nodules Expected: 06/24/2023 (Approximate), Expires: 06/24/2024 [facility] Work Phone: Comment on above: Expected: 06/24/2023 (Approximate), Expires: 06/24/2024 Start: 05-18-2023 Advance Directive Discussion Advance Directive Discussion [facility] Start: 05-18-2023 Depression Assessment Depression Ass essment [facility] Start: 01-16-2023 Covid-19 Vaccine () Covid-19 Vaccine () [facility] Start: 01-16-2023 Influenza vaccination Influenza Vacc ine (#1) [facility] Start: 05-18-2022 Advance Directive Discussion Advance Directive Discussion [facility] Start: 05-18-2022 Depression Assessment Depression Ass essment [facility] Start: 11-02-2021 Screening for malign ant neoplasm of colon [facility] Start: 2021 Bone Density Screening Bone Density Screening [facility] Start: 2021 Pneumococcal Vaccine : 65+ (1 - PCV) Pneumococcal Vaccine: 65+ (1 - PCV) [facility] Start: 2021 Screening for osteoporosis Bone Density Screening [facility] Start: 2016 RSV Vaccine (1 - 1-d ose 60+ series) RSV Vaccine (1 - 1-dose 60+ series) [facility] Start: 2006 Shingrix Vaccine (1 of 2) Shingrix Vaccine (1 of 2) [facility] Start: 2001 Cologuard (FIT-DNA) Cologuard (FIT-D NA) [facility] Start: 2001 Colonoscopy Colonoscopy [facility] Start: 2001 Colorectal Cancer Screening Colorectal Cancer Screening [facility] Start: [address] Colonography [facility] Start: 2001 Diabetes Screening Diabetes Screenin g [facility] Start: 2001 Fecal Occult Blood Fecal Occult Bloo d [facility] Start: 2001 Lipid 1996 panel - S norma or Plasma Lipid Screening [facility] Start: 2001 Lipid panel Lipid Screening [facility] Start: 2001 Screening for malign ant neoplasm of colon [facility] Start: 2001 Sigmoidoscopy Sigmoidoscopy [facility] Start: 1996 Mammography Mammogram Screening [facility] Start: 1996 Screening for malign ant neoplasm of breast Mammogram Screening [facility] Start: 09-30-1975 Urine microalbumin profile DTaP,Tdap,Td Vaccine (1 - Tdap) [facility] Start: 1974 Annual PCP Team Glove Pairer michelle Disease Visit Annual PCP Team Chronic Disease Visit [facility] Start: 1974 BP Controlled (<130/80) BP Controlle d (<130/80) [facility] Start: 1974 Hepatitis C Screening Hepatitis C [facility] Start: 1974 Hepatitis C screening Hepatitis C [facility] Start: 1962 Pneumococcal Vaccine : 65+ (1 of 2 - PCV) Pneumococcal Vaccine: 65+ (1 of 2 - PCV) [facility] Start: 04-01-1957 Covid-19 Vaccine (#1) Covid-19 Vacci ne (#1) [facility] Start: 1956 Hemoglobin A1c measurement Diabetes: Hemoglobin A1C [facility] Start: 1955 Screening for malign ant neoplasm of colon [facility] End: 04-29-2024 Screening colonoscopy COLONOSCOPY SCREENING Endoscopy Routine History of colon polyps 1 Occurrences starting 04/29/2023 until 04/29/[address] [facility] Work Phone: Comment on above: 1 Occurrences starti 04/29/2023 until 04/29/2024 SURGICAL PATHOLOG[address] [facility] Work Phone: Comment on above: Release Upon Abdifatah g for 1 Occurrences starting 06/18/2023, 1 completed [facility] Immunizations Immunization Date Immunization Notes Care Provider Yonas beltran 11-10-2022 zoster vaccine recombinant Kaila Torstenz [employer] Work Phone: [facility] 05-21-2022 zoster vaccine recombinant Kaila Aichholz [employer] Work Phone: [facility] Payers Date Payer Category Payer Self-pay 2022 Medicare DEVOTED MEDICARE [facility] [id number] 2022-Present [phone] [address] [place]ANI [place]RO[place] [id number] O [id number] 2022 Unknown [employer] [id number] 2022-Present [address] [place]RO[place] [id number] 2020 Unknown [id number] 1959 Medicare [id number] 1955 Unknown [id number] 1955 Unknown [id number] 1955 Unknown [id number] 1956 Unknown [id number] 1956 Unknown [id number] 1956 Unknown [id number] 1956 Unknown [id number] 1956 Unknown [id number] 1955 Unknown [id number] Unknown [id number] Unknown [id number] Social History Date Type Detail Facility Tobacco smoking stat [facility] Unknown if ever smoked [facility] Work Phone: Start: 1955 Sex Assigned At Female [facility] smoking consumption unknown [facility] Start: 1955 Sex Assigned At Not on file [facility] Start: 04-29-2023 End: 05-04-2023 Gender identity Not on file [facility] Start: 04-29-2023 End: 05-03-2023 Tobacco smoking status NHIS Ex-smoker [facility] Start: 05-18-1975 End: 05-18-2007 History of tobacco use Current smoker [facility] Start: 05-18-1975 End: 05-18-2007 History of tobacco use Cigarette Smoker [facility] Start: 04-29-2023 End: 05-04-2023 Cigarettes smoked current (pack per day) - Reported 1.5 [facility] Start: 04-29-2023 Tobacco use and exposure Smokeless tobacco non-user [facility] National Score (1-10 0), lower number is lower risk 91 [facility] Start: 05-04-2023 Alcohol intake Ex-drinker (finding) [facility] Start: 05-03-2023 Tobacco Comment Last smoked -15 ye ars [facility] Start: 05-03-2023 Alcohol Comment caffeine:soda [facility] Medical Equipment Procedure Code Equipment Code Equipment Origin al Text Equipment Identifier Dates Use as instructed [id number] Start: 05-22-2023 End: 05-21-2024 1 each 3 (three) times a day as needed (3 times daily prn) [id number] Start: 05-22-2023 Clinical Notes 04-01-2020 to 06-24-2023 Kaila Goldstein NP - 06/24/2023 10:52 AM ESTTelephone Encounter - Windy Caba Ma - 06/23/2023 2:34 PM ESTTelephone Encounter - Sara Do RN - 06/23/2023 10:21 AM ESTPatient Instructions Note Date & Type Note Facility 06-24-2023 History of Presen t illness Narrative Due for fu CT chest 3 month for lung nodules documented in this encounter [facility] 06-23-2023 Miscellaneous Notes Recall entered Left voice message regarding results and advised to call office with any further questions. Please enter 3 year recall colonoscopy. Thank you Sara Do RN ----- Message from Harleen Macdonald DO sent at 06/22/2023 1:12 PM EST ----- Please review path from colonoscopy with pt which reveals multiple SSP and TA removed, a couple hyperplastic polyps and focal inflammation in the rectum rather than true polyp-not concerning. Repeat in 3 yrs. Thanks cl documented in this encounter [facility] 06-18-2023 History and physical note HISTORY AND [...] Sedation Plan: MAC Additional Comments: None Harleen Macdonald DO documented in this encounter [facility] 06-12-2023 Note Continue statin- lip itor 10 mg daily [facility] 06-12-2023 Note Hypertension is stab le b/p 136/83 continue losartan, aldactone, and toprl [facility] 06-12-2023 Note RCRI 0???points Class I Risk 3.9???% 30-day risk of , MO, or cardiac arrest From a cardiac perspective pt may proceed with colonoscopy, she is a low risk for a low risk procedure. She may hold elquis for 2-3 days prior and resume post op, with the knowledge that there is a risk for stroke with holding anticoagulation. Please monitor hemodynamics carefully and prevent any major fluid shifts. [facility] 06-12-2023 Note UTP CARDIOLOGY PROGR ESS NOTE [...] are negative Previous HPI per S Witherall [employer] M[employer] HPI Hortenisa Bates is a 66 y.o. female who [...] normal LA f (more content not included)... [facility] 06-12-2023 Note Patient here for 6 m o follow up persistent afib, hypertension, and hyperlipidemia. She denies chest pain, SOB, lightheadedness/syncope, palpitations, and bleeding on Eliquis. She is scheduled for colonoscopy on 06/18 with [facility] and needs permission to hold Eliquis. Review of Systems Cardiovascular: Positive for leg swelling (minimal, resolves by morning). All other systems reviewed and are negative. [facility] 06-12-2023 Note [id number] VASc= 4 Continue anticoagulation with eliquis- will need to hold 2-3 days for colonoscopy Monitor for s/s of bleeding Continue toprol, rate controlled and remains in NSR [facility] 04-29-2023 Note HNO ID: [id number] Author: Harleen Macdonald, DO Service: ? Author Type: Physician Type: Progress Notes Filed: 04/29/2023 12:49 PM Note Text: Chief Compliant: Consultation requested by Dr. Kaila Goldstein, AIDS NURSE.LOAN SECRETARY for an opinion regarding hx of colon [...] other GI malignancy. No records available in [facility] or [facility] regarding this office visit. ALLERGIES Allergen Reactions [...] from her prior colonoscopy -schedule colonoscopy at [place]. 2 day bowel p (more content not included)... [facility] 04-29-2023 History of Presen t illness Narrative Chief Compliant: Consultation requested by Dr. Kaila Goldstein, AIDS NURSE.LOAN SECRETARY for an opinion regarding hx of colon [...] other GI malignancy. No records available in [facility] or [facility] regarding this office visit. ALLERGIES Allergen Reactions [...] from her prior colonoscopy -schedule colonoscopy at [place]. 2 day bowel prep. Procedure/risks were discussed with the patient in great detail including but not limited to the risk of sedation, bleeding, perforation, infection, and missed lesions. Patient agreed to proceed. -fiber rich diet Harleen Macdonald DO Follow Up: No follow-ups on file. documented in this encounter [facility] 04-29-2023 Instructions Harleen Macdonald DO - 04/29/2023 12:04 PM EST Images [...] If you do not have a responsible owner operator tanker truck driver (family member or friend) with you to take you home, your exam cannot be done with sedation and will be cancelled. Please bring a list of all of your current medications, including any Digw-iyv-Zjfuhyp medications with you. Medications If you take [...] exam. 2 04/2019 documented in this encounter [facility] 04-21-2023 Miscellaneous Notes Pt's VM is full and there is no active MC Cannot inform pt 05/28 appt w/Kristel was canceled If pt calls back an attempt was made to contact her Frandy Álvarez 04/21/23 documented in this encounter [facility] 12-03-2022 Note Cardiology Clinic No te Subjective [...] Left Atrium appen (more content not included)... [facility] 04-23-2020 Note MR#: [id number] [facility] Pt. Name: Hortensia Bates Admitted: 04/15/2020 Discharged: 04/23/2020 Date of : 1955 Physician: Misael Mccollum MD DISCHARGE SUMMARY PRINCIPAL DIAGNOSES: 1. Paroxysmal [...] to the patient being on anticoagulation and zesmvmpr-ny-rxmzqd sigmoid diverticulosis. Subsequently, pathology report came back [...] snare measured 3 mm and 5 mm. Zzxtnzsu-in-ekzpmw sigmoid diverticulosis. Again, the patient was admitted [...] discharge 60 minutes. Electronically Signed by: Misael Mccollum MD 04/24/2020 03:49 P Misael Mccollum MD Date Dict: 04/23/2020/02:32 P/Misael Mccollum MD Date Trans: 04/23/2020 02:52 P/mmo [id number] [facility] 04-01-2020 Note MR#: [id number] [facility] Pt. Name: Hortensia Bates Admitted: 03/29/2020 Discharged: [...] Gonzalez MD Date Trans: 04/01/2020 12:25 P/lazarus [id number] [facility] Evaluation note No assessment inform ation available [facility] Work Phone: Evaluation note Diagnosis History of colon polyps- Primary Personal history of colonic polyps [facility] Diagnosis Chronic atrial fibrillation (HCC)- Primary Atrial fibrillation History of colon polyps Personal history of colonic polyps Primary hypertension Unspecified essential hypertension Class 3 obesity (HCC) [facility] Diagnosis Multiple lung nodules- Primary Other diseases of lung, not elsewhere classified [facility] Outpatient Procedure (Routine) - Pending Review Specialty Diagnoses / Procedures Referred By Masoud simms Referred To Contact [facility] Diagnoses History of colon polyps Procedures COLONOSCOPY SCREENING COLONOSCOPY FLX DX W/COLLJ [place] [address] [place] [address] [facility] Disease [address] [address] Referral ID Status Reason Start Date Expiration Date Visits Requested Visits Authorized [id number] Pending Review Auto-Generat ed Referral 04/29/2024 1 1 [facility] for referral (narrative)* Outpatient Procedure (Routine) - Closed Specialty Diagnoses / Procedures Referred By Masoud simms Referred To Contact [facility] Diagnoses History of colon polyps Procedures COLONOSCOPY SCREENING COLONOSCOPY FLX DX W/[place] [address] [place] [address] [address] Referral ID Status Reason Start Date Expiration Date V isits Requested Visits Authorized [id number] Closed Auto-Generate d Referral 06/05/2023 05/17/2024 1 1 [facility] for visit Narrative* Outpatient Procedure (Routine) - Closed Specialty Diagnoses / Procedures Referred By Masoud simms Referred To Contact [facility] Diagnoses History of colon polyps Procedures COLONOSCOPY SCREENING COLONOSCOPY FLX DX W/COLLJ [place] [address] [place] [address] [facility] Disease [address] [address] Referral ID Status Reason Start Date Expiration Date V isits Requested Visits Authorized [id number] Closed Auto-Generate d Referral 06/05/2023 05/17/2024 1 1 [facility] Summary Purpose Family History No Family History [...] contrast Kaila Goldstein, ANA [address] [place] [address] Referral ID Status Reason Start Date Expiration Date V isits Requested Visits Authorized [id number] Authorized 06/24/2023 12/21/2023 1 1 Additional Source Comments INFORMATION SOURCE (unrecogn ized section and content) DATE CREATED AUTHOR 11/07/2020 [facility] DATE CREATED AUTHOR AUTHOR'S ORGANIZ ATION 09/19/2022 [facility] DATE CREATED AUTHOR AUTHOR'S ORGANIZ ATION 03/15/2023 [facility] DATE CREATED AUTHOR AUTHOR'S ORGANIZ ATION 04/11/2023 [facility] DATE CREATED AUTHOR AUTHOR'S ORGANIZ ATION 06/13/2023 [facility] DATE CREATED AUTHOR AUTHOR'S ORGANIZ ATION 06/22/2023 [facility] DATE CREATED AUTHOR AUTHOR'S ORGANIZ ATION 06/24/2023 [facility] DATE CREATED AUTHOR AUTHOR'S ORGANIZ ATION 08/27/2023 [facility] Care Teams (unrecognized sec tion and content) Team Status: Active Member Role Status Dates Kaila Goldstein Primary Care Provider Active Team Status: Inactive Member Role Status Dates Kaila Goldstein Primary Care Provider, Attending Provi [email or web address] Active Catia Designer Relationship Specialty Start Date End Date Kaila Goldstein CNP [address] [place] [address] PCP - General Family Medicine 03/24/23 Catia Designer Relationship Specialty Start Date End Date Kaila Goldstein CNP [address] [place] [address] PCP - General Family Medicine 03/24/23 Catia Designer Relationship Specialty Start Date End Date Kaila Goldstein LOAN SECRETARY [address] [place] [address] PCP - General Family Medicine 03/24/23 Catia Designer Relationship Specialty Start Date End Date Kaila Goldstein LOAN SECRETARY [address] [place] [address] PCP - General Family Medicine 03/24/23 Catia Designer Relationship Specialty Start Date End Date Quinn Antunez MD PCP - General Family Medicine 12/08/22 Quinn Antunez MD [address] [place] [address] PCP - Devoted 02/15/23 Kaila Goldstein NP [address] [place] [phone] Referring Physician Nurse Practitioner 12/08/22 Goals (unrecognized [...] or prosecute any alcohol or drug abuse patient.[facility] the event this information is protected by the Federal Confidentiality of Alcohol and Drug Abuse Patient Records regulations: The Federal rules restrict any use of the information to criminally investigate or prosecute any alcohol or drug abuse patient.[facility] the event this information is protected by the Federal Confidentiality of Alcohol and Drug Abuse Patient Records regulations: The Federal rules restrict any use of the information to criminally investigate or prosecute any alcohol or drug abuse patient.[facility] the event this information is protected by the Federal Confidentiality of Alcohol and Drug Abuse Patient Records regulations: The Federal rules restrict any use of the information to criminally investigate or prosecute any alcohol or drug abuse patient.[facility] Reason for Visit (unrecogniz ed section and [...] BE BASED ON THE PRIMARY CLINICAL RECORDS. [facility]. provides no warranty or guarantee of the accuracy or completeness of information in this document.
== END 2023-10-01 12:54 | disposition home or self-care (01) ==
LOC: CT 12:54
PROVIDERS: PCP Nurse Practitioner; Visit Provider Nurse Practitioner
DX: R91.8 Other nonspecific abnormal finding of lung field (principal)
CPT/HCPCS: 71250

== ENCOUNTER 2023-12-24 11:01 | Outpatient (OUT) | payer OTHER, SELFPAY ==
--- OUTSIDE RECORDS SUMMARY | 2023-12-24 11:06 | XMS_ITS | CCD ---
Author Organization [facility] Care Team Providers Care Core Driller Helper Name Role Phone AICHHOLZ, KAILA Referring Unavailable AICHHOLZ, KAILA Primary Care Unavailable ME Procedure Practitioner Unavailab le ALASTAL, YASEEN Admitting Unavailable ALASTAL, YASEEN Attending Unavailable ALASTAL, YASEEN Surgeon Unavailable AICHHOLZ, KAILA Primary Care Unavailable AICHHOLZ, KAILA Referring Unavailable SULEIMAN GRULLON Admitting Unavailable SULEIMAN GRULLON Attending Unavailable SHANTHI, SARMED Admitting Unavailable SHANTHI, SARMED Attending Unavailable CHAY ARANGO Surgeon Unavailable AICHHOLZ, KAILA Primary Care Unavailable ME Procedure Practitioner Unavailab JUAN Souza Referring Unavailable SHANTHI, SARMED Surgeon Unavailable ME Procedure Practitioner Unavailab LULU Irizarry Referring Unavailable SHANTHI, SARMED Admitting Unavailable AICHHOLZ, KAILA Primary Care Unavailable MISAEL NEGRO Attending Unavailable ME Procedure Practitioner Unavailab le LIZZETTESTAL, YASEEN Surgeon Unavailable AICHHOLZ, LABORATORY CUREMAN KAILA Attending Unavailable AICHHOLZ, LABORATORY CUREMAN KAILA Consulting Unavailable AICHHOLZ, LABORATORY CUREMAN KAILA Primary Care Unavailable AICHHOLZ, LABORATORY CUREMAN KAILA Admitting Unavailable AICHHOLZ, LABORATORY CUREMAN KAILA Attending Unavailable AICHHOLZ, LABORATORY CUREMAN KAILA Consulting Unavailable AICHHOLZ, LABORATORY CUREMAN KAILA Primary Care Unavailable AICHHOLZ, LABORATORY CUREMAN KAILA Admitting Unavailable AICHHOLZ, LABORATORY CUREMAN KAILA Attending Unavailable AICHHOLZ, LABORATORY CUREMAN KAILA Consulting Unavailable AICHHOLZ, LABORATORY CUREMAN KAILA Primary Care Unavailable AICHHOLZ, LABORATORY CUREMAN KAILA Admitting Unavailable Angelita Kaila J Primary Care Provider Kaila Goldstein Attending Provider Kaila Goldstein Attending Unavailable Kaila Goldstein Primary Care Unavailable Kaila Goldstein Admitting Unavailable Kaila Goldstein CNP Primary Care Provider YANN KUHN Attending Unavailable KAILA GOLDSTEIN Primary Care Unavailable HARLEEN JONES Referring Unavailable HARLEEN JONES Attending Unavailable KAILA GOLDSTEIN Primary Care Unavailable Quinn Antunez MD Primary Care Provider Angelita LINOTYPE OPERATOR, Kaila Unavailable Quinn Antunez MD Unavailable UMAIR ENRIQUE Attending Unavailable VERONIKA DUMONT Attending Unavailable EDWINA PRETTY Attending Unavailable KAILA GOLDSTEIN Attending Unavailable KAILA GOLDSTEIN Attending Unavailable KAILA GOLDSTEIN Attending Unavailable Allergies Allergy Classification Reported Allergen(s) Allergy Type Date of Onset Reaction(s) Facility Unclassified (4 sources) Thiazides; Translations: [THIAZIDES] Drug allergy (disorder) 01-05-20 13 [facility] (4 sources) Spironolactone; Translations: [SPIRONOLACTONE] Drug Allergy 04-29-20 23 [facility] (3 sources) Thiazides Drug Allergy 05-06-20 22 [facility] (1 source) fexofenadine Drug Allergy 05-06-20 22 [facility] (1 source) hydroCHLOROthiazide Drug Allergy 05-04-20 23 [facility] (1 source) Spironolactone Drug Allergy 05-01-20 23 [facility] (1 source) Thiazide-Type Diuretics Drug Allergy 05-04-20 23 [facility] Medications Current Medications Medication Drug Class(es) Dates [...] Comment on above: Centrum polyethylene glycol 3350 524430 mg / potassium chloride 2970 mg / sodium bicarbonate 6740 mg / sodium chloride 5860 mg / sodium sulfate 12246 mg powder for oral solution (1 source) [...] Chronic Disorders of lipid metabolism (4 sources) Hyperlipidemia; Translations: [Hyperlipidemia, unspecified] Onset: 06-12-2023 06-18-2023 Chronic Essential hypertension (8 sources) Essential (primary) hypertension; Translations: [Essential hypertension] Onset: 09-18-2022 06-18-2023 Chronic Gout and other crystal arthropathies (2 [...] (severe) obesity due to excess calories; Translations: [Class 3 obesity (HCC)] Onset: 12-03-2022 Chronic Other nutritional; endocrine; and [...] apnea (adult) (pediatric)] Onset: 05-01-2023 05-01-2023 Chronic Screening and history of mental health and substance abuse codes (1 source) Tobacco use and exposure - finding; Translations: [Personal history of nicotine dependence] Onset: 05-01-2023 05-01-2023 Episodic Thyroid disorders (5 sources) Hypothyroidism, unspecified; Translations: [Hypothyroidism] Onset: 09-15-2022 Chronic Unclassified (1 source) Chronic atrial fibrillation, unspecified; Translations: [Chronic atrial fibrillation (HCC)] Onset: 06-18-2023 Unclassified (2 sources) Other persistent atrial fibrillation; Translations: [Other persistent atrial fibrillation] Onset: 05-06-2022 Viral infection (1 source) COVID-19; Translations: [COVID-19] Onset: 05-04-2022 Past or Other Problems Problem Classification Problem Date Documented Da te Episodic/Chronic Fever of unknown origin (4 sources) Fever, unspecified; Translations: [FEVER UNSPECIFIED] Onset: 05-01-2022 Episodic Malaise and fatigue (1 source) Other malaise; Translations: [OTHER MALAISE] Onset: 05-04-2022 Episodic Residual codes; unclassified (2 sources) Localized edema; Translations: [Localized edema] Onset: 06-12-2023 Episodic Results Test Name Value Interpretation Reference Range Facility Office Visiton 11-17-2023 Follow-up visit [id number] Hortensia Bates 1955 Date Provider Department Center 11/17/2023 VERONIKA BLUE NAVARRO [place] Family History Problem Relation Age of Onset No Known Problems Mother No Known Problems Father Family Status - Relation Status Age at Mother Father Level of Service:20285 ME OFFICE/OUTPATIENT ESTABLISHED MOD MDM 30 MIN Normal [facility] Orders Onlyon 11-17-2023 Orders Only [id number] Hortensia Bates 1955 Date Provider Department Center 11/17/2023 JOSEFA MONTGOMERY NAVARRO [place] Family History Problem Relation Age of Onset No Known Problems Mother No Known Problems Father Family Status - Relation Status Age at Mother Father Normal [facility] CNPJaney 06-23-2023 FAROOQ Telephone (GASTNO) HORTENSIA BATES ([id number]) 1955 F Date Time Provider Department 06/23/23 [...] Status:Closed by WINDY DICKSON MA on 06/23/23 [facility] ANES POSTPROC EVALon 024 ANES POSTPROC EVAL HNO ID: [id number] Author: YANN KUHN MD Service: Anesthesiology Author Type: Physician Type: Anesthesia Postprocedure Evaluation Filed: 06/18/2023 09:58 Note Text: POST ANESTHESIA EVALUATION NOTE : 1955 Procedure Summary Date: 06/18/23 Room / Location: Procedures Anesthesia Start: 848 Anesthesia Stop: 918 Procedure: COLONOSCOPY SCREENING Diagnosis: History of colon polyps (High risk colon cancer surveillance: Personal history of colonic polyps) Scheduled Providers: Harleen Jones DO; Leona Rendon APRN.CAR PAINTER; Yann Kuhn MD; Abby Peoples RN Responsible [...] June 18, 2023 TIME: 9:57 AM CSN: [id number] [facility] ANES PRE-OPon 06-18-2023 ANES PRE-OP HNO ID: [id number] Author: YANN KUHN MD Service: Anesthesiology Author Type: Physician Type: Anesthesia Preprocedure Evaluation Filed: 06/18/2023 08:20 Note Text: ANESTHESIOLOGY DAY OF SURGERY NOTE : 1955 Procedure Information Date/Time: 06/18/23 0900 Scheduled providers: Harleen Jones DO; Leona Rendon APRN.CAR PAINTER; Yann Kuhn MD; Abby Peoples RN Procedure: [...] and consent discussed: yes. Patient / Responsible Alliance Party agrees to proceed: yes Patient / [...] June 18, 2023 TIME: 8:19 AM CSN: [id number] Normal [facility] COLONOSCOPY SCREENINGon [facility] Colonoscopyon 06-18-2023 Colonoscopy [facility] Gastrointestinal Endoscopy Patient Name: Hortensia Bates Procedure Date: 06/18/2023 8:48 AM Date of : 1955 Admit Type: Outpatient Age: 67 Room: [place] [address] Gender: Female Note Status: Finalized Attending MD: Harleen Jones DO, [id number] Procedure: Colonoscopy Indications: High risk colon cancer [...] referring physician. Procedure Code(s): --- Professional --- 16697, Colonoscopy, flexible; with biopsy, single or multiple [...] or abscess without bleeding CPT copyright 2020 [employer]. All rights reserved. The codes documented in this report are preliminary and upon boiler reliner review may be revised to meet current compliance requirements. Attending Participation: I personally performed the entire procedure. Scope In: 8:53:53 AM Scope Out: 9:15:29 AM DO Harleen Hurd DO 06/18/2023 9:19:27 AM This report has been signed electronically by Harleen Jones DO Number of Addenda: 0 Note Initiated On: 06/18/2023 8:48 AM Estimated Blood Loss: Estimated blood loss was minimal. Normal [facility] GLUCOSE, BLOOD (POC)on 06-18 Glucose [Mass/Vol] 107 mg/dL Abnormal 74 - 99 mg/dL [facility] HISTORY PHYSICALon HISTORY PHYSICAL HNO ID: [id number] Author: HARLEEN JONES DO Service: Gastroenterology Author [...] organomegaly. Sedation Plan: MAC Additional Comments: None Hraleen Jones DO [facility] SURGICAL PATHOLOGYon CASE REPORT [facility] Comment on above: Order Comment: Speci men Type: TISSUE SPECIMEN Ordering Facility: [facility] Address: [address] [place] [address] Result Comment: Surg ica Pathology Report Case: [id number] Authorizing Provider: Harleen Jones DO Collected: 06/18/2023 08:59 AM Ordering Location: Procedures Received: 06/18/2023 09:31 AM Pathologist: Thi Delvalle MD, PhD Specimens: A) - CECUM POLYP B) - ASCENDING COLON POLYP C) - TRANSVERSE COLON POLYP D) - SIGMOID COLON POLYP E) - RECTAL BIOPSY Performed By: #### S #### [facility] CLIA [id number] [address] [place], [place] [address] [place] FINAL DIAGNOSIS Normal [facility] Comment on above: Order Comment: Speci saray Type: TISSUE SPECIMEN Ordering Facility: [facility] Address: [address] [place] [address] Result Comment: A. C olon, cecum, polyp, [...] level examined. Performed By: #### S #### [facility] CLIA [id number] [address] [place] [address] [place] FINAL PERFORMING LAB Normal [facility] Comment on above: Order Comment: Speci men Type: TISSUE SPECIMEN Ordering Facility: [facility] Address: [address] [place] [address] Result Comment: Diag nostic interpretation performed at [facility], [address] [place] [address] CLIA# [id number] Supervising Deputy: José Miguel White M.D. Performed By: #### S #### [facility] CLIA [id number] [address] [place] [address] [place] GROSS DESCRIPTION A. CECUM POLYP Normal [facility] Comment on above: Order Comment: Speci men Type: TISSUE SPECIMEN Ordering Facility: [facility] Address: [address] [place] [address] Result Comment: Rece ived in formalin is [...] 2023 3:40 PM Gross examination performed at [facility], [address] [place] [address] Performed By: #### S #### [facility] CLIA [id number] [address] [place] [address] [place] Office Visiton 06-12-2023 Follow-up visit [id number] Hortensia Bates 1955 F Date Provider Department Center 06/12/2023 Jasmina-UMAIR ENRIQUE NAVARRO [place] Family History Problem Relation Age of Onset No Known Problems Mother No Known Problems Father Family Status - Relation Status Age at Mother Father Level of Service:55871 ME OFFICE/OUTPATIENT ESTABLISHED MOD MDM 30 MIN Normal [facility] CNPJaney 06-04-2023 CNPN Telephone (GASTAV) HORTENSIA BATES ([id number]) 1955 F Date Time Provider Department 06/04/23 HARLEEN JONES During your visit today, we recorded the following information about you: Naila Fleming OCCA 06/04/2023 11:19 AM Signed Contacted and spoke with patient regarding prep instructions for upcoming procedure. Answered all patient's questions. Patient demonstrated understanding and was instructed to call [phone] and ask for nurse triage line for [...] 20 mins and then resume. Please call [phone] and ask for Nurse Triage with any [...] and then resume. THANK YOU! Please call [phone] and ask for nurse triage line if you have any questions [facility] Jared Mcneil - 2nd floor (Surgery Center) [address] [facility] [place] [address] Allergies As of Date: 06/04/2023 Noted Allergy Reaction SPIRONOLACTONE 04/29/2023 4 - Hives THIAZIDES 05/06/2022 4 - Hives Date Reviewed: Never Reviewed Reason for Visit: Pre-Op Teaching [134] Prescriptions as of 06/04/2023 - apixaban (ELIQUIS) 5 mg tab(s) Take 5 mg by mouth two times a day. - levothyroxine (SYNTHROID) 100 mcg tablet Levothyroxine Sodium - metFORMIN ER (more content not included)... Normal [facility] CNOVon 04-29-2023 CNOV Office Visit (GASTAV ) HORTENSIA BATES ([id number]) 1955 F Date Time Provider Department 04/29/23 [...] If you do not have a responsible class c truck driver (family member or friend) with you to take you home, your exam cannot be done with sedation and will be cancelled. Please bring a list of all of your current medications, including any Qjtc-hpw-Cylrwck medications with you. Medications If you take [...] Compliant: Consultation requested by Dr. Kaila Goldstein, SIRI.LABORATORY CUREMAN for an opinion regarding hx of colon polyps. My final recommendations will be communicated back to the requesting physician by way of shared Medical record or letter to requesting physician via US mail. HPI: Hortensia Bates is a 67 year old female with PMH significant for hypo (more content not included)... Normal [facility] CNPNon 04-21-2023 CNPN Telephone (GAST) HORTENSIA BATES ([id number]) 1955 F Date Time Provider Department 04/21/23 CARMEN JACOB [facility] During your visit today, we recorded the [...] Status:Closed by ELLY DUMONT on 04/21/23 Normal [facility] Glucose Glucometer (BldC) [M ass/Vol]Ordered By: Kaila Goldstein on 04-03-2023 Glucose [Mass/Vol] 118 mg/dL [facility] Comment on above: Random Glucose Refer ence Range is dependent on time and content of last meal. Glucose of more than 200 mg/dL in a nonstressed, ambulatory subject supports the diagnosis of Diabetes Mellitus. Glucose Poct Glucometerson 1 06-03-2022 Glucose [Mass/Vol] 118 mg/dL Normal [facility] Comment on above: Result Comment: [place] Glucose Reference Range is dependent on time and content of last meal. Glucose of more than 200 mg/dL in a nonstressed, ambulatory subject supports the diagnosis of Diabetes Mellitus. PERFORMED BY: [place] [address] PATHOLOGIST PLASTIC PARTS FABRICATOR DARNELL WESLEY M.D. Performed By: #### G LUVARINDER #### Point of Care testing , PET tumor init tx strat sb-m dinesh 04-03-2023 PET tumor init tx strat sb-mt [facility] Main [place] [address] [place], [place] [id number] Nuclear Medicine Report Signed Patient: Hortensia Bates MR#: [id number] : 1955 Acct:[id number] Age/Sex: 67 / F ADM Date: 04/03/23 Loc: Room: Type: [facility] Attending Dr: Kaila Goldstein Copies to: Simone eRid Jr, DO Lisa J Aichholz, NP-C Ordering [...] are recommended. Impression dictated by: Simone Reid Jr. DPremaOPrema04/03/2023 1:18 PM Dictation Location: [place] [address] Transcribed By: [facility] 04/03/23 1318 Dictated By: Simone Reid Jr, DO 04/03/23 1202 Signed By: 04/03/23 1318 Normal [facility] Physician Referralon 023 Physician Referral [id number] 0 [id number] Normal [facility] Office Visiton 12-03-2022 Follow-up visit [id number] Hortensia Bates 1955 F Date Provider Department Center 12/03/2022 [id number] PRETTY CARD [facility] Family History Problem Relation Age of Onset No Known Problems Mother No Known Problems Father Family Status - Relation Status Age at Mother Father Level of Service:28844 ME OFFICE/OUTPATIENT ESTABLISHED MOD MDM 30-39 MIN Reason for Visit and Comments: Follow-up [586207] - 6 month follow up Normal [facility] CBC AUTO DIFFon 09-15-2022 BASO # 0.1 103/ul Normal 0.0-0.1 [facility] Comment on above: Performed By: #### C BC #### [facility] [address] [place] [address] Dr. Yenny Huertas Basophils/100 WBC (Bld) 0.7 % Normal 0.2-2.0 [facility] Comment on above: Performed By: #### C BC #### [facility] [address] [place] [address] Dr. Yenny Huertas EO # 0.2 103/ul Normal 0.0-0.7 [facility] Comment on above: Performed By: #### C BC #### [facility] [address] [place] [address] Dr. Yenny Huertas Eosinophils/100 WBC (Bld) 2.7 % Normal 0.9-7.0 [facility] Comment on above: Performed By: #### C BC #### [facility] [address] [place] [address] Dr. Yenny Huertas Erythrocyte distribution width (RBC) [Ratio] 14.6 % Normal 11.0-15.0 [facility] Comment on above: Performed By: #### C BC #### [facility] [address] [place] [address] Dr. Yenny Huertas Hematocrit (Bld) [Volume fraction] 41.4 % Normal 36.0-48.0 [facility] Comment on above: Performed By: #### C BC #### [facility] [address] [place] [address] Dr. Yenny Huertas Hemoglobin (Bld) [Mass/Vol] 13.6 g/dL Normal 12.0-16.0 [facility] Comment on above: Performed By: #### C BC #### [facility] [address] [place] [address] Dr. Yenny Huertas IG # 0.03 10e3/ul Normal 0.00-0.03 [facility] Comment on above: Performed By: #### C BC #### [facility] [address] [place] [address] Dr. Yenny Huertas IG % 0.3 % Normal 0.0-0.5 [facility] Comment on above: Performed By: #### C BC #### [facility] [address] [place] [address] Dr. Yenny Huertas LYMPH # 3.3 103/ul Normal 1.2-3.8 [facility] Comment on above: Performed By: #### C BC #### [facility] [address] [place] [address] Dr. Yenny Huertas Lymphocytes/100 WBC (Bld) 36.3 % Normal 20.5-60.0 [facility] Comment on above: Performed By: #### C BC #### [facility] [address] [place] [address] Dr. Yenny Huertas MANUAL DIFF REQ NO Normal [facility] Comment on above: Performed By: #### C BC #### [facility] [address] [place] [address] Dr. Yenny Huertas MCH (RBC) [Entitic mass] 29.1 pg Normal 26.7-34.0 [facility] Comment on above: Performed By: #### C BC #### [facility] [address] [place] [address] Dr. Yenny Huertas MCHC (RBC) [Mass/Vol] 32.9 g/dL Normal 29.9-35.2 [facility] Comment on above: Performed By: #### C BC #### [facility] [address] [place] [address] [address] Yenny Huertas MCV (RBC) [Entitic vol] 88.7 fL Normal 81.0-99.0 [facility] Comment on above: Performed By: #### C BC #### [facility] [address] [place] [address] Dr. Yenny Huertas MONO # 0.7 103/ul Normal 0.3-0.8 [facility] Comment on above: Performed By: #### C BC #### [facility] [address] [place] [address] Dr. Yenny Huertas Monocytes/100 WBC (Bld) 7.7 % Normal 1.7-12.0 [facility] Comment on above: Performed By: #### C BC #### [facility] [address] [place] [address] Dr. Yenny Huertas NEUT # 4.7 103/ul Normal 1.4-6.5 [facility] Comment on above: Performed By: #### C BC #### [facility] [address] [place] [address] Dr. Yenny Huertas Neutrophils/100 WBC (Bld) 52.3 % Normal 43.0-75.0 [facility] Comment on above: Performed By: #### C BC #### [facility] [address] [place] [address] Dr. Yenny Huertas Platelet mean volume (Bld) [Entitic vol] 9.9 fL Normal 9.5-13.5 [facility] Comment on above: Performed By: #### C BC #### [facility] [address] [place] [address] Dr. Yenny Huertas PLT 285 103/ul Normal 150-450 [facility] Comment on above: Performed By: #### C BC #### [facility] [address] [place] [address] Dr. Yenny Huertas RBC 4.67 106/ul Normal 4.20-5.40 [facility] Comment on above: Performed By: #### C BC #### [facility] [address] [place] [address] Dr. Yenny Huertas WBC 9.0 103/ul Normal 4.0-11.0 [facility] Comment on above: Performed By: #### C BC #### [facility] [address] [place] [address] Dr. Yenny Huertas FREE T4on 09-15-2022 Free T4 [Mass/Vol] 1.04 ng/dL Normal 0.76-1.46 [facility] Comment on above: Performed By: #### F T4 #### [facility] [address] [place] [address] Dr. Yenny Huertas GLYCOHEMOGLOBIN A1Con 2022 ADA RECOMMENDATION SEE BELOW Normal [facility] Comment on above: Result Comment: ADA RECOMMENDED LIMIT 4.0 - 6.0 ADA THERAPEUTIC TARGET < 7.0 ACTION SUGGESTED > 7.0 Performed By: #### A 1C #### [facility] [address] [place] [address] Dr. Yenny Huertas Glucose [Mass/Vol] 126 mg/dL Normal [facility] Comment on above: Performed By: #### A 1C #### [facility] [address] [place] [address] Dr. Yenny Huertas HbA1c (Bld) [Mass fraction] 6.0 % Normal 4.5-6.2 [facility] Comment on above: Performed By: #### A 1C #### [facility] [address] [place] [address] Dr. Yenny Huertas MICROALBUMIN, RAND URon mALB <1.3 Normal <=30.0 [facility] Comment on above: Performed By: #### M ALBR #### [facility] [address] [place] [address] Dr. Yenny Huertas PROF 14(COMP METB)on 023 Albumin [Mass/Vol] 3.5 g/dL Normal 3.4-5.0 [facility] Comment on above: Performed By: #### T SH, CMP #### [facility] [address] [place] [address] [address] Yenny Huertas Albumin/Globulin [Mass ratio] 0.9 {ratio} Normal [facility] Comment on above: Performed By: #### T SH, CMP #### [facility] [address] [place] [address] [address] Yenny Huertas ALP [Catalytic activity/Vol] 53 U/L Normal 46-116 [facility] Comment on above: Performed By: #### T SH, CMP #### [facility] [address] [place] [address] [address] Yenny Huertas ALT [Catalytic activity/Vol] 30 U/L Normal 14-59 [facility] Comment on above: Performed By: #### T MADELIN, CMP #### [facility] [address] [place] [address] Dr. Yenny Huertas Anion gap [Moles/Vol] 9.6 mmol/L Normal [facility] Comment on above: Performed By: #### T SH, CMP #### [facility] [address] [place] [address] Dr. Yenny Huertas AST [Catalytic activity/Vol] 17 U/L Normal 15-37 [facility] Comment on above: Performed By: #### T MADELIN, CMP #### [facility] [address] [place] [address] Dr. Yenny Huertas Bilirubin [Mass/Vol] 0.6 mg/dL Normal 0.2-1.0 [facility] Comment on above: Performed By: #### T SH, CMP #### [facility] [address] [place] [address] [address] Yenny Huertas Calcium [Mass/Vol] 9.1 mg/dL Normal 8.5-10.1 [facility] Comment on above: Performed By: #### T SH, CMP #### [facility] [address] [place] [address] [address] Yenny Huertas Chloride [Moles/Vol] 106 mmol/L Normal 98-107 [facility] Comment on above: Performed By: #### T SH, CMP #### [facility] [address] [address] [address] Yenny Huertas CO2 [Moles/Vol] 26.4 mmol/L Normal 21.0-32.0 [facility] Comment on above: Performed By: #### T SH, CMP #### [facility] [address] [place] [address] Dr. Yenny Huertas Creatinine [Mass/Vol] 0.84 mg/dL Normal 0.55-1.02 [facility] Comment on above: Performed By: #### T SH, CMP #### [facility] [address] [address] [address] Yenny Huertas EGFR-AF SAMMARINESE >60 Normal >=60 [facility] Comment on above: Performed By: #### T SH, CMP #### [facility] [address] [place] [address] Dr. Yenny Huertas EGFR-NON AF SAMMARINESE >60 Normal >=60 [facility] Comment on above: Performed By: #### T SH, CMP #### [facility] [address] [place] [address] Dr. Yenny Huertas Globulin (S) [Mass/Vol] 3.9 g/dL Normal [facility] Comment on above: Performed By: #### T SH, CMP #### [facility] [address] [place] [address] Dr. Yenny Huertas Glucose [Mass/Vol] 119 mg/dL Critically high 74-106 [facility] Comment on above: Performed By: #### T SH, CMP #### [facility] [address] [place] [address] Dr. Yenny Huertas Potassium [Moles/Vol] 4.0 mmol/L Normal 3.5-5.1 [facility] Comment on above: Performed By: #### T SH, CMP #### [facility] [address] [place] [address] Dr. Yenny Huertas Protein [Mass/Vol] 7.4 g/dL Normal 6.4-8.2 [facility] Comment on above: Performed By: #### T SH, CMP #### [facility] [address] [place] [address] Dr. Yenny Huertas Sodium [Moles/Vol] 138 mmol/L Normal 136-145 [facility] Comment on above: Performed By: #### T SH, CMP #### [facility] [address] [place] [address] Dr. Yenny Huertas Urea nitrogen [Mass/Vol] 21.0 mg/dL Critically high 7.0-18.0 [facility] Comment on above: Performed By: #### T SH, CMP #### [facility] [address] [place] [address] Dr. Yenny Huertas Urea nitrogen/Creatinine [Mass ratio] 25.0 mg/mg Normal [facility] Comment on above: Performed By: #### T SH, CMP #### [facility] [address] [place] [address] Dr. Yenny Huertas TSHon 09-15-2022 TSH 3.836 uIU/mL Critically high 0.358-3.740 [facility] Comment on above: Performed By: #### T SH, CMP #### [facility] [address] [place] [address] Dr. Yenny Huertas UA RANDOM W/MICROSCOPICon BACTERIA TRACE Abnormal NONE SEEN [facility] Comment on above: Performed By: #### U AMIC #### [facility] [address] [place] [address] Dr. Yenny Huertas Bilirubin Ql (U) Negative Normal NEGATIVE [facility] Comment on above: Performed By: #### U AMIC #### [facility] [address] [place] [address] Dr. Yenny Huertas CAST NONE SEEN Normal NONE SEEN [facility] Comment on above: Performed By: #### U AMIC #### [facility] [address] [place] [address] Dr. Yenny Huertas Clarity (U) CLEAR Normal CLEAR [facility] Comment on above: Performed By: #### U AMIC #### [facility] [address] [place] [address] Dr. Yenny Huertas Color (U) LT. YELLOW Normal YELLOW [facility] Comment on above: Performed By: #### U AMIC #### [facility] [address] [address] [address] Yenny Huertas Crystals LM Nom (Urine sed) NONE SEEN Normal NONE SEEN [facility] Comment on above: Performed By: #### U AMIC #### [facility] [address] [address] [address] Yenny Huertas Epithelial cells LM Ql (Urine sed) MODERATE Abnormal NONE SEEN /RARE [facility] Comment on above: Performed By: #### U AMIC #### [facility] [address] [address] [address] Yenny Huertas Glucose Ql (U) Negative Normal NEGATIVE [facility] Comment on above: Performed By: #### U AMIC #### [facility] [address] [place] [address] Dr. Yenny Huertas Hemoglobin Ql (U) Negative Normal NEGATIVE [facility] Comment on above: Performed By: #### U AMIC #### [facility] [address] [address] [address] Yenny Huertas Ketones Ql (U) Negative Normal NEGATIVE [facility] Comment on above: Performed By: #### U AMIC #### [facility] [address] [address] [address] Yenny Huertas LEUKOCYTES TRACE Abnormal NEGATIVE [facility] Comment on above: Performed By: #### U AMIC #### [facility] [address] [address] [address] Yenny Huertas MUCOUS NONE SEEN Normal NONE SEEN [facility] Comment on above: Performed By: #### U AMIC #### [facility] [address] [address] [address] Yenny Huertas Nitrite Ql (U) Negative Normal NEGATIVE [facility] Comment on above: Performed By: #### U AMIC #### [facility] [address] [address] [address] Yenny Huertas pH (U) 5.0 [pH] Normal 5-9 [facility] Comment on above: Performed By: #### U AMIC #### [facility] [address] [address] [address] Yenny Huertas RBC 0-2 Normal 0-2 [facility] Comment on above: Performed By: #### U AMIC #### [facility] [address] [address] [address] Yenny Huertas SPEC GRAVITY >=1.030 Abnormal 1.005-<=1.025 [facility] Comment on above: Performed By: #### U AMIC #### [facility] [address] [address] [address] Yenny Huertas UA PROTEIN Negative Normal NEGATIVE/ TRACE [facility] Comment on above: Performed By: #### U AMIC #### [facility] [address] [place] [address] Dr. Yenny Huertas Urobilinogen Qn (U) 0.2 {Mila'U}/dL Normal 0.2 - 1. 0 [facility] Comment on above: Performed By: #### U AMIC #### [facility] [address] [address] [address] Yenny Huertas WBC 2-5 Abnormal NONE SEEN [facility] Comment on above: Performed By: #### U AMIC #### [facility] [address] [address] [address] Yenny Huertas [facility]17 SARS-CoV-2 (COVID-19) RNA JAS+probe Ql (Unsp spec) Detected Critically abnormal NOT DETECTED [facility] Comment on above: Result Comment: This test is not yet approved or cleared by the [place] FDA. When there are no FDA-approved or cleared tests available, and other criteria are met, FDA can make tests available under an emergency access mechanism called an Emergency Use Authorization (EUA). The EUA for this test is supported by the [place] of Health and Human Service's declaration that [...] used). Performed By: #### C VDTBH #### [facility] [address] [place] [address] Dr. Yenny Huertas INFLUENZA A AND B AGon 05-01 INFLUANEGH SEE BELOW Normal [facility] Comment on above: Result Comment: Nega tive for Flu A protein angiten. Infection due to Flu A cannot be ruled out. Flu A angiten in the sample may be below the detection limit of the test. Performed By: #### I NFLUAB #### [facility] [address] [place] [address] Dr. [facility] Normal [facility] Comment on above: Result Comment: Nega tive for Flu B protein antigen. Infection due to Flu B cannot be ruled out. Flu B antigen in the sample may be below the detection limit of the test. Performed By: #### I NFLUAB #### [facility] [address] [place] [address] Dr. Yenny Huertas INFLUENZA A AG Negative Normal NEGATIVE SEE COMMENT [facility] Comment on above: Performed By: #### I NFLUAB #### [facility] [address] [place] [address] Dr. Yenny Huertas INFLUENZA B AG Negative Normal NEGATIVE SEE COMMENT [facility] Comment on above: Performed By: #### I NFLUAB #### [facility] [address] [place] [address] Dr. Yenny Huertas INTERNAL CONTROLS Within Normal Limits Normal Wi thin Normal Limits [facility] Comment on above: Performed By: #### I NFLUAB #### [facility] [address] [place] [address] Dr. Yenny Huertas GLYCOHEMOGLOBIN A1Con 2021 ADA RECOMMENDATION SEE BELOW Normal [facility] Comment on above: Result Comment: ADA RECOMMENDED LIMIT 4.0 - 6.0 ADA THERAPEUTIC TARGET < 7.0 ACTION SUGGESTED > 7.0 Performed By: #### M ALBR #### [facility] [address] [address] [address] Yenny Huertas Glucose [Mass/Vol] 117 mg/dL Normal [facility] Comment on above: Performed By: #### M ALBR #### [facility] [address] [address] [address] Yenny Huertas HbA1c (Bld) [Mass fraction] 5.7 % Normal 4.5-6.2 [facility] Comment on above: Performed By: #### M ALBR #### [facility] [address] [address] [address] Yenny Huertas URIC ACID SERUMon 03-13-2022 Urate [Mass/Vol] 4.8 mg/dL Normal 2.6-6.0 [facility] Comment on above: Performed By: #### U DILIA #### [facility] [address] [place] [address] Dr. Yenny Huertas Endoscopy Reporton Endoscopy Report MR#: [id number] [facility] Pt. Name: Hortensia Bates Surgery Date: [...] P/Kirk Aranda MD Date Trans: 11/03/2020 08:22 Nona/lazarus [id number] Normal [facility] POC GLUCOSE LABon 11-02-2020 Glucose [Mass/Vol] 90 mg/dL Normal 70-100 [facility] Comment on above: Performed By: #### 3 1792 #### [facility] [address] [facility] [place] [address], [facility] BASIC METABOLIC PANELon 07-16 Calcium [Mass/Vol] 7.9 mg/dL Low 8.6-10.3 [facility] Comment on above: Order Comment: No: D o not add to previous draw Performed By: #### 8 [id number] #### [facility] [address] [facility] [place] [address], [facility] Chloride [Moles/Vol] 107 mmol/L Normal 98-107 [facility] Comment on above: Order Comment: No: D o not add to previous draw Performed By: #### 8 [id number] #### [facility] [address] [facility] [place] [address], [place] CO2 [Moles/Vol] 24 mmol/L Normal 21-31 [facility] Comment on above: Order Comment: No: D o not add to previous draw Performed By: #### 8 [id number] #### [facility] [address] [place] [address], [place] Creatinine [Mass/Vol] 0.62 mg/dL Normal 0.60-1.20 [facility] Comment on above: Order Comment: No: D o not add to previous draw Performed By: #### 8 [id number] #### [facility] [address] [place] [address], [place] GFR/1.73 sq M.predicted among blacks MDRD (S/P/Bld) [Vol rate/Area] mL/min/{1.73_m2} Normal >60 [facility] Comment on above: Order Comment: No: D o not add to previous draw Performed By: #### 8 [id number] #### [facility] [address] [place] [address], [place] GFR/1.73 sq M.predicted among non-blacks MDRD (S/P/Bld) [Vol rate/Area] mL/min/{1.73_m2} Normal >60 [facility] Comment on above: Order Comment: No: D o not add to previous draw Performed By: #### 8 [id number] #### [facility] [address] [place] [address], [place] Glucose [Mass/Vol] 106 mg/dL High 70-100 [facility] Comment on above: Order Comment: No: D o not add to previous draw Performed By: #### 8 [id number] #### [facility] [address] [place] [address], [place] Potassium [Moles/Vol] 3.9 mmol/L Normal 3.5-5.1 [facility] Comment on above: Order Comment: No: D o not add to previous draw Performed By: #### 8 [id number] #### [facility] [address] [place] [id number], [facility] Sodium [Moles/Vol] 137 mmol/L Normal 136-145 [facility] Comment on above: Order Comment: No: D o not add to previous draw Performed By: #### 8 [id number] #### [facility] [address] [place] [id number], [facility] Urea nitrogen [Mass/Vol] 11 mg/dL Normal 7-25 [facility] Comment on above: Order Comment: No: D o not add to previous draw Performed By: #### 8 [id number] #### [facility] [address] [place] [address], [facility] CBC COMPLETE BLOOD COUNTon 0 - Erythrocyte distribution width (RBC) [Ratio] 14.1 % Normal 11.5-15.0 [facility] Comment on above: Order Comment: No: D o not add to previous draw Performed By: #### 8 [id number] #### [facility] [address] [place] [address], [facility] Hematocrit (Bld) [Volume fraction] 37.8 % Normal 36.0-45.0 [facility] Comment on above: Order Comment: No: D o not add to previous draw Performed By: #### 8 [id number] #### [facility] [address] [place] [id number], [facility] Hemoglobin (Bld) [Mass/Vol] 12.2 g/dL Normal 12.0-15.0 [facility] Comment on above: Order Comment: No: D o not add to previous draw Performed By: #### 8 [id number] #### [facility] [address] [place] [address], [facility] MCH (RBC) [Entitic mass] 29.6 pg Normal 27.0-33.0 [facility] Comment on above: Order Comment: No: D o not add to previous draw Performed By: #### 8 [id number] #### [facility] [address] [place] [address], [facility] MCHC (RBC) [Mass/Vol] 32.3 g/dL Normal 32.0-35.0 [facility] Comment on above: Order Comment: No: D o not add to previous draw Performed By: #### 8 [id number] #### [facility] [address] [place] [id number], [facility] MCV (RBC) [Entitic vol] 91.7 fL Normal 82.0-98.0 [facility] Comment on above: Order Comment: No: D o not add to previous draw Performed By: #### 8 [id number] #### [facility] [address] [place] [id number], [facility] Nucleated RBC/100 WBC (Bld) [Ratio] 0 % Normal 0-0 [facility] Comment on above: Order Comment: No: D o not add to previous draw Performed By: #### 8 [id number] #### [facility] [address] [place] [id number], [facility] PLAT CNT 276 10*3/uL Normal 150-400 [facility] Comment on above: Order Comment: No: D o not add to previous draw Performed By: #### 8 [id number] #### [facility] [address] [place] [id number], [facility] RBC (Bld) [#/Vol] 4.12 10*6/uL Normal 3.80-5.00 The [facility] Comment on above: Order Comment: No: D o not add to previous draw Performed By: #### 8 [id number] #### [facility] [address] [place] [id number], [place] WBC (Bld) [#/Vol] 15.14 10*3/uL High 4.00-10.60 [facility] Comment on above: Order Comment: No: D o not add to previous draw Performed By: #### 8 [id number] #### [facility] [address] [facility] [place] [address], [facility] MAGNESIUM BLOODon 07-27-2020 Magnesium [Mass/Vol] 1.7 mg/dL Low 1.9-2.7 [facility] Comment on above: Order Comment: No: D o not add to previous draw Performed By: #### 8 [id number] #### [facility] [address] [facility] [place] [address], [facility] POC GLUCOSE LABon 07-27-2020 Glucose [Mass/Vol] 93 mg/dL Normal 70-100 [facility] Comment on above: Performed By: #### 3 1792 #### [facility] [address] [facility] [place] [address], [facility] Glucose [Mass/Vol] 101 mg/dL High 70-100 [facility] Comment on above: Performed By: #### 3 5200 #### [facility] [address] [place] [address], [facility] Cardiovascular Lab Reporton 07-26-2020 Cardiovascular Lab Report [facility] Patient Name: Hortensia Bates [facility] MR #: [id number] Physician: Suleiman Grullon MD Department of Service Date: 07/26/2020 Medicine Birthdate: 1955 Division of Room #: 3AB 086862 Cardiology Adult Cardiovascular Services [address] [address] Cardiovascular Laboratory Report ATRIAL FIBRILLATION ABLATION PROCEDURE [...] mildly enlarged. Esophagus was mapped using the [employer]ART[employer] 3D mapping software. Double transseptal access technique [...] fol (more content not included)... Normal [facility] POC GLUCOSE LABon 07-26-2020 Glucose [Mass/Vol] 135 mg/dL High 70-100 [facility] Comment on above: Performed By: #### 8 9099 ####[facility] [place] [address], [facility] Glucose [Mass/Vol] 134 mg/dL High 70-100 [facility] Comment on above: Performed By: #### 8 0529 ####[facility] [facility].[place] [id number], [facility] Glucose [Mass/Vol] 106 mg/dL High 70-100 [facility] Comment on above: Performed By: #### 8 [id number] ####[facility] [facility].[place] Endoscopy Reporton 0 Endoscopy Report MR#: [id number] [facility] Pt. Name: Hortensia Bates Surgery Date: 04/23/2020 Room #: 3AB 604805 Date of : 1955 PROCEDURE NOTE ATTENDING: [...] snare, measured 3 mm and 5 mm. Nphfyyak-[id number]-vehuzk sigmoid diverticulosis. 3. Poor colon preparation. RECOMMENDATIONS: [...] Sanchez M.D. Date Trans: 04/23/2020 10:38 A/lazarus [id number] Normal [facility] POC GLUCOSE LABon 04-23-2020 Glucose [Mass/Vol] 116 mg/dL High 70-100 [facility] Comment on above: Performed By: #### 8 [id number] #### [facility] [address] [place] [address], [place] Glucose [Mass/Vol] 98 mg/dL Normal 70-100 [facility] Comment on above: Performed By: #### 3 5200 #### [facility] [address] [place] [address], [place] Glucose [Mass/Vol] 89 mg/dL Normal 70-100 [facility] Comment on above: Performed By: #### 8 [id number] ####[facility] [place] [address], [place] POC GLUCOSE LABon 04-22-2020 Glucose [Mass/Vol] 93 mg/dL Normal 70-100 [facility] Comment on above: Performed By: #### 3 1792 #### [facility] [address] [place] [address], [place] Glucose [Mass/Vol] 99 mg/dL Normal 70-100 [facility] Comment on above: Performed By: #### 3 5200 #### [facility] [address] [facility] [place] [address], [facility] Glucose [Mass/Vol] 109 mg/dL High 70-100 [facility] Comment on above: Performed By: #### 3 1792 #### [facility] [address] [facility]. [address] *SARS-CoV-2 COVID-19on 04-21 Clinical Report Normal [facility] Comment on above: Result Comment: Spec imen: OROPHARYNGEAL Collected: 04/21/2020 11:17 Status: Final Last Updated: 04/22/2020 12:41 COVID-19 (Final) Not Detected The [employer] SARS-CoV-2 assay is a real-time (rt) reverse transcriptase (RT) polymerase chain reaction (PCR) test intended for the [employer] system. The SARS-CoV-2 primer and probe sets are designed to detect RNA from SARS-CoV-2 in a nasopharyngeal (LINOTYPE OPERATOR) or oropharyngeal (OP) swab from patients with signs and symptoms of infection who are suspected of COVID-19. Results are for the identification of SARS-CoV-2 RNA. The SARS-CoV-2 RNA is generally detectable in a nasopharyngeal or oropharyngeal swab during the acute phase of infection. The [employer] SARS-CoV-2 assay is intended for use by qualified and trained clinical laboratory personnel specifically instructed and trained in the techniques of real-time PCR and in vitro diagnostic procedures. The [employer] SARS-CoV-2 assay is only for use under the Food and Drug Administration Emergency Use Authorization. Testing is limited to laboratories certified under the Clinical Laboratory Improvement Amendments of 1988 (CLIA), 42 U.S.C. 263a, to perform high complexity tests. Performed By: #### 3 [id number] #### [facility] [address] [facility] [place] [address], [facility] POC GLUCOSE LABon 04-21-2020 Glucose [Mass/Vol] 105 mg/dL High 70-100 The [facility] Comment on above: Performed By: #### 8 [id number] #### [facility] [address] [place] [address], [facility] Glucose [Mass/Vol] 97 mg/dL Normal 70-100 [facility] Comment on above: Performed By: #### 8 [id number] ####[facility] Glucose [Mass/Vol] 94 mg/dL Normal 70-100 [facility] Comment on above: Performed By: #### 8 [id number] ####[facility] Glucose [Mass/Vol] 98 mg/dL Normal 70-100 [facility] Comment on above: Performed By: #### 8 [id number] ####[facility] PROTHROMBIN TIMEon 0 INR Coag (PPP) [Relative time] 1.04 {INR} Normal 0.91-1.16 [facility] Comment on above: Order Comment: [...] CHEST 1995;[id number]. Performed By: #### 1 69, [id number] #### [facility] [address] [place] [address], [facility] PT Coag (PPP) [Time] 13.6 s Normal 12.3-14.8 [facility] Comment on above: Order Comment: No: D o not add to previous draw Result Comment: ALL RESULTS MUST BE INTERPRETED WITH RESPECT TO BLOOD DRAWING ARTIFACT OR DILUTION ERROR OF ANTICOAGULANT AT THE TIME OF SAMPLING. Performed By: #### 1 69, [id number] #### [facility] [address] BASIC METABOLIC PANELon 12-0 Calcium [Mass/Vol] 8.8 mg/dL Normal 8.6-10.3 [facility] Comment on above: Order Comment: No: D o not add to previous draw Performed By: #### 1 69, 64324 #### [facility] [address] [place] [address], [facility] Chloride [Moles/Vol] 103 mmol/L Normal 98-107 [facility] Comment on above: Order Comment: No: D o not add to previous draw Performed By: #### 1 69, 93733 #### [facility] [address] [facility] [place] [address], [facility] CO2 [Moles/Vol] 26 mmol/L Normal 21-31 [facility] Comment on above: Order Comment: No: D o not add to previous draw Performed By: #### 1 69, 45238 #### [facility] [address] [place] [address], [facility] Creatinine [Mass/Vol] 0.82 mg/dL Normal 0.60-1.20 [facility] Comment on above: Order Comment: No: D o not add to previous draw Performed By: #### 1 0070, 64396 #### [facility] [address] [place] [address], [place] GFR/1.73 sq M.predicted among blacks MDRD (S/P/Bld) [Vol rate/Area] mL/min/{1.73_m2} Normal >60 [facility] Comment on above: Order Comment: No: D o not add to previous draw Performed By: #### 1 0, 16649 #### [facility] [address] [place] [address], [place] GFR/1.73 sq M.predicted among non-blacks MDRD (S/P/Bld) [Vol rate/Area] mL/min/{1.73_m2} Normal >60 [facility] Comment on above: Order Comment: No: D o not add to previous draw Performed By: #### 1 69, 10712 #### [facility] [address] [place] [address], [place] Glucose [Mass/Vol] 99 mg/dL Normal 70-100 [facility] Comment on above: Order Comment: No: D o not add to previous draw Performed By: #### 1 69, 43213 #### [facility] [address] [place] [address], [place] Potassium [Moles/Vol] 3.8 mmol/L Normal 3.5-5.1 [facility] Comment on above: Order Comment: No: D o not add to previous draw Performed By: #### 1 69, 37562 #### [facility] [address] [place] [address], [place] Sodium [Moles/Vol] 136 mmol/L Normal 136-145 The [facility] Comment on above: Order Comment: No: D o not add to previous draw Performed By: #### 1 0, 35590 #### [facility] [address] [place] [address], [place] Urea nitrogen [Mass/Vol] 15 mg/dL Normal 7-25 [facility] Comment on above: Order Comment: No: D o not add to previous draw Performed By: #### 1 0070, 31087 #### [facility] [address] [place] [address], [place] POC GLUCOSE LABon 04-20-2020 Glucose [Mass/Vol] 109 mg/dL High 70-100 The [facility] Comment on above: Performed By: #### 3 5200 #### [facility] [address] [place] [address], [place] Glucose [Mass/Vol] 95 mg/dL Normal 70-100 [facility] Comment on above: Performed By: #### 8 5499 ####[facility] [place] [address], [place] Glucose [Mass/Vol] 92 mg/dL Normal 70-100 The [facility] Comment on above: Performed By: #### 3 5200 #### [facility] [address] [place] [address], [place] Glucose [Mass/Vol] 94 mg/dL Normal 70-100 [facility] Comment on above: Performed By: #### 8 5499 ####[facility] [place] [address], [place] HEMATOCRITon 04-19-2020 Hematocrit (Bld) [Volume fraction] 42.6 % Normal 36.0-45.0 [facility] Comment on above: Order Comment: No: D o not add to previous draw Performed By: #### 8 5499 #### [facility] [address] [place] [address], [place] HEMOGLOBINon 04-19-2020 Hemoglobin (Bld) [Mass/Vol] 13.6 g/dL Normal 12.0-15.0 [facility] Comment on above: Order Comment: No: D o not add to previous draw Performed By: #### 8 5499 #### [facility] [address] [place] [address], [place] POC GLUCOSE LABon 04-19-2020 Glucose [Mass/Vol] 114 mg/dL High 70-100 The [facility] Comment on above: Performed By: #### 8 5499 ####[facility] [place] [address], [place] Glucose [Mass/Vol] 110 mg/dL High 70-100 The [facility] Comment on above: Performed By: #### 3 1792 #### [facility] [address] [place] [address], [place] Glucose [Mass/Vol] 95 mg/dL Normal 70-100 [facility] Comment on above: Performed By: #### 8 5499 ####[facility] [place] [address], [place] Glucose [Mass/Vol] 89 mg/dL Normal 70-100 The [facility] Comment on above: Performed By: #### 3 1792 #### [facility] [address] [place] [address], [place] *SARS-CoV-2 COVID-19on 04-18 Clinical Report Normal [facility] Comment on above: Result Comment: Spec imen: OROPHARYNGEAL Collected: 04/17/2020 23:30 Status: Final Last Updated: 04/18/2020 09:00 COVID-19 (Final) Not Detected The [employer] SARS-CoV-2 assay is a real-time (rt) reverse transcriptase (RT) polymerase chain reaction (PCR) test intended for the F[employer] system. The SARS-CoV-2 primer and probe sets are designed to detect RNA from SARS-CoV-2 in a nasopharyngeal (LINOTYPE OPERATOR) or oropharyngeal (OP) swab from patients with signs and symptoms of infection who are suspected of COVID-19. Results are for the identification of SARS-CoV-2 RNA. The SARS-CoV-2 RNA is generally detectable in a nasopharyngeal or oropharyngeal swab during the acute phase of infection. The [employer] Max BioGX SARS-CoV-2 assay is intended for use by qualified and trained clinical laboratory personnel specifically instructed and trained in the techniques of real-time PCR and in vitro diagnostic procedures. The BD [employer] BioGX SARS-CoV-2 assay is only for use under the Food and Drug Administration Emergency Use Authorization. Testing is limited to laboratories certified under the Clinical Laboratory Improvement Amendments of 1988 (CLIA), 42 U.S.C. 263a, to perform high complexity tests. Performed By: #### 3 1791 #### [facility] [address] CBC COMPLETE BLOOD COUNT 06-19-2019 Erythrocyte distribution width (RBC) [Ratio] 14.6 % Normal 11.5-15.0 [facility] Comment on above: Order Comment: No: D o not add to previous drawMissed pt has to go to the bathroom ask to come back Performed By: #### 8 [id number] #### [facility] [address] Hematocrit (Bld) [Volume fraction] 43.6 % Normal 36.0-45.0 [facility] Comment on above: Order Comment: No: D o not add to previous drawMissed pt has to go to the bathroom ask to come back Performed By: #### 8 [id number] #### [facility] [address] Hemoglobin (Bld) [Mass/Vol] 13.8 g/dL Normal 12.0-15.0 [facility] Comment on above: Order Comment: No: D o not add to previous drawMissed pt has to go to the bathroom ask to come back Performed By: #### 8 5499 #### [facility] [address] MCH (RBC) [Entitic mass] 28.9 pg Normal 27.0-33.0 [facility] Comment on above: Order Comment: No: D o not add to previous drawMissed pt has to go to the bathroom ask to come back Performed By: #### 8 5499 #### [facility] [address] MCHC (RBC) [Mass/Vol] 31.7 g/dL Low 32.0-35.0 [facility] Comment on above: Order Comment: No: D o not add to previous drawMissed pt has to go to the bathroom ask to come back Performed By: #### 8 5499 #### [facility] [address] MCV (RBC) [Entitic vol] 91.2 fL Normal 82.0-98.0 [facility] Comment on above: Order Comment: No: D o not add to previous drawMissed pt has to go to the bathroom ask to come back Performed By: #### 8 5499 #### [facility] [address] [facility]. [address] Nucleated RBC/100 WBC (Bld) [Ratio] 0 % Normal 0-0 [facility] Comment on above: Order Comment: No: D o not add to previous drawMissed pt has to go to the bathroom ask to come back Performed By: #### 8 5499 #### [facility] [address] [facility]. [address] PLAT CNT 338 10*3/uL Normal 150-400 The [facility] Comment on above: Order Comment: No: D o not add to previous drawMissed pt has to go to the bathroom ask to come back Performed By: #### 8 5499 #### [facility] [address] [facility]. [address] RBC (Bld) [#/Vol] 4.78 10*6/uL Normal 3.80-5.00 The [facility] Comment on above: Order Comment: No: D o not add to previous drawMissed pt has to go to the bathroom ask to come back Performed By: #### 8 5499 #### [facility] [address] WBC (Bld) [#/Vol] 10.61 10*3/uL High 4.00-10.60 [facility] Comment on above: Order Comment: No: D o not add to previous drawMissed pt has to go to the bathroom ask to come back Performed By: #### 8 5499 #### [facility] [address] Endoscopy Reporton 0 Endoscopy Report MR#: [id number] [facility] Pt. Name: Hortensia Bates Surgery Date: 04/18/2020 Room #: 3AB [id number] Date of : 1955 PROCEDURE NOTE ATTENDING: Arley Sanchez M.D. VIAL GAUGER: Edmond Watkins MD PROCEDURE: Colonoscopy. INDICATION: This [...] to the patient being on anticoagulation. 3. [id number] sigmoid diverticulosis. 4. Poor bowel prep with [...] Watkins MD Date Trans: 04/18/2020 07:10 P/lazarus [id number] Normal [facility] POC GLUCOSE LABon 04-18-2020 Glucose [Mass/Vol] 111 mg/dL High 70-100 The [facility] Comment on above: Performed By: #### 3 1792 #### [facility] [address] [place] [address], [facility] Glucose [Mass/Vol] 84 mg/dL Normal 70-100 The [facility] Comment on above: Performed By: #### 8 5499 ####[facility] [place] [address], [place] Glucose [Mass/Vol] 87 mg/dL Normal 70-100 [facility] Comment on above: Performed By: #### 3 1792 #### [facility] [address] [place] [address], [place] Glucose [Mass/Vol] 86 mg/dL Normal 70-100 The [facility] Comment on above: Performed By: #### 8 5499 ####[facility] [facility] [place] [address], [facility] Glucose [Mass/Vol] 104 mg/dL High 70-100 The [facility] Comment on above: Performed By: #### 8 5499 #### [facility] [address] [place] [address], [facility] PROTHROMBIN TIMEon 0 INR Coag (PPP) [Relative time] 1.85 {INR} High 0.91-1.16 [facility] Comment on above: Order Comment: [...] CHEST 1995;108:[id number]. Performed By: #### 1 0, 95588 #### [facility] [address] PT Coag (PPP) [Time] 21.4 s High 12.3-14.8 [facility] Comment on above: Order Comment: No: D o not add to previous draw Result Comment: ALL RESULTS MUST BE INTERPRETED WITH RESPECT TO BLOOD DRAWING ARTIFACT OR DILUTION ERROR OF ANTICOAGULANT AT THE TIME OF SAMPLING. Performed By: #### 1 0, 52931 #### [facility] [address] [facility] [address] CBC COMPLETE BLOOD COUNT06-18-2019 Erythrocyte distribution width (RBC) [Ratio] 14.6 % Normal 11.5-15.0 [facility] Comment on above: Order Comment: Unkno wn Performed By: #### 8 [id number] #### [facility] [address] [facility] Hematocrit (Bld) [Volume fraction] 41.7 % Normal 36.0-45.0 [facility] Comment on above: Order Comment: Unkno wn Performed By: #### 8 5499 #### [facility] [address] [facility] Hemoglobin (Bld) [Mass/Vol] 13.4 g/dL Normal 12.0-15.0 [facility] Comment on above: Order Comment: Unkno wn Performed By: #### 8 [id number] #### [facility] [address] [facility] [place] [address], [facility] MCH (RBC) [Entitic mass] 29.0 pg Normal 27.0-33.0 [facility] Comment on above: Order Comment: Unkno wn Performed By: #### 8 [id number] #### [facility] [address] [facility] [place] [address], [facility] MCHC (RBC) [Mass/Vol] 32.1 g/dL Normal 32.0-35.0 [facility] Comment on above: Order Comment: Unkno wn Performed By: #### 8 5499 #### [facility] [address] [place] [address], [facility] MCV (RBC) [Entitic vol] 90.3 fL Normal 82.0-98.0 [facility] Comment on above: Order Comment: Unkno wn Performed By: #### 8 5499 #### [facility] [address] [facility] [place] [address], [facility] Nucleated RBC/100 WBC (Bld) [Ratio] 0 % Normal 0-0 [facility] Comment on above: Order Comment: Unkno wn Performed By: #### 8 5499 #### [facility] [address] [facility] [place] [address], [facility] PLAT CNT 294 10*3/uL Normal 150-400 The [facility] Comment on above: Order Comment: Unkno wn Performed By: #### 8 5499 #### [facility] [address] [facility] [place] [address], [facility] RBC (Bld) [#/Vol] 4.62 10*6/uL Normal 3.80-5.00 The [facility] Comment on above: Order Comment: Unkno wn Performed By: #### 8 5499 #### [facility] [address] [facility] [place] [address], [facility] WBC (Bld) [#/Vol] 9.33 10*3/uL Normal 4.00-10.60 The [facility] Comment on above: Order Comment: Unkno wn Performed By: #### 8 5499 #### [facility] [address] [facility] [place] [address], [facility] CBC W/DIFFon 04-17-2020 ABS IMM GRANS 0.0 10*3/uL Normal 0.0-0.2 The [facility] Comment on above: Order Comment: No: D o not add to previous draw Performed By: #### 8 [id number] #### [facility] [address] [place] [address], [facility] ABS NEUTROPHILS 6.4 10*3/uL Normal 1.6-7.6 The [facility] Comment on above: Order Comment: No: D o not add to previous draw Performed By: #### 8 5499 #### [facility] [address] [place] [address], [facility] Basophils (Bld) [#/Vol] 0.1 10*3/uL Normal 0.0-0.2 [facility] Comment on above: Order Comment: No: D o not add to previous draw Performed By: #### 8 5499 #### [facility] [address] [place] [address], [facility] Basophils/100 WBC (Bld) 0.8 % Normal 0.0-1.0 [facility] Comment on above: Order Comment: No: D o not add to previous draw Performed By: #### 8 5499 #### [facility] [address] [place] [address], [facility] Eosinophils (Bld) [#/Vol] 0.4 10*3/uL Normal 0.0-0.5 [facility] Comment on above: Order Comment: No: D o not add to previous draw Performed By: #### 8 [id number] #### [facility] [address] [place] [id number], [facility] Eosinophils/100 WBC (Bld) 3.3 % Normal 0.0-6.0 [facility] Comment on above: Order Comment: No: D o not add to previous draw Performed By: #### 8 5499 #### [facility] [address] [place] [address], [place] Erythrocyte distribution width (RBC) [Ratio] 14.6 % Normal 11.5-15.0 [facility] Comment on above: Order Comment: No: D o not add to previous draw Performed By: #### 8 [id number] #### [facility] [address] [place] [address], [facility] Hematocrit (Bld) [Volume fraction] 43.6 % Normal 36.0-45.0 [facility] Comment on above: Order Comment: No: D o not add to previous draw Performed By: #### 8 5499 #### [facility] [address] [place] [address], [facility] Hemoglobin (Bld) [Mass/Vol] 14.1 g/dL Normal 12.0-15.0 [facility] Comment on above: Order Comment: No: D o not add to previous draw Performed By: #### 8 [id number] #### [facility] [address] [place] [address], [facility] IMMATURE GRANS 0.4 % Normal 0.0-1.0 The [facility] Comment on above: Order Comment: No: D o not add to previous draw Performed By: #### 8 5499 #### [facility] [address] [place] [address], [facility] Lymphocytes (Bld) [#/Vol] 3.2 10*3/uL Normal 1.2-4.0 [facility] Comment on above: Order Comment: No: D o not add to previous draw Performed By: #### 8 5499 #### [facility] [address] [place] [address], [facility] Lymphocytes/100 WBC (Bld) 29.7 % Normal 20.0-45.0 [facility] Comment on above: Order Comment: No: D o not add to previous draw Performed By: #### 8 [id number] #### [facility] [address] [place] [address], [facility] MCH (RBC) [Entitic mass] 29.1 pg Normal 27.0-33.0 [facility] Comment on above: Order Comment: No: D o not add to previous draw Performed By: #### 8 5499 #### [facility] [address] [place] [id number], [facility] MCHC (RBC) [Mass/Vol] 32.3 g/dL Normal 32.0-35.0 [facility] Comment on above: Order Comment: No: D o not add to previous draw Performed By: #### 8 5499 #### [facility] [address] [place] [address], [facility] MCV (RBC) [Entitic vol] 89.9 fL Normal 82.0-98.0 [facility] Comment on above: Order Comment: No: D o not add to previous draw Performed By: #### 8 5499 #### [facility] [address] [place] [id number], [facility] Monocytes (Bld) [#/Vol] 0.7 10*3/uL Normal 0.1-1.0 [facility] Comment on above: Order Comment: No: D o not add to previous draw Performed By: #### 8 5499 #### [facility] [address] [place] [address], [facility] MONOS 6.8 % Normal 5.0-12.0 [facility] Comment on above: Order Comment: No: D o not add to previous draw Performed By: #### 8 5499 #### [facility] [address] [place] [id number], [facility] Neutrophils/100 WBC (Bld) 59.0 % Normal 40.0-72.0 [facility] Comment on above: Order Comment: No: D o not add to previous draw Performed By: #### 8 5499 #### [facility] [address] [place] [id number], [facility] Nucleated RBC/100 WBC (Bld) [Ratio] 0 % Normal 0-0 [facility] Comment on above: Order Comment: No: D o not add to previous draw Performed By: #### 8 5499 #### [facility] [address] [place] [address], [place] PLAT CNT 332 10*3/uL Normal 150-400 The [facility] Comment on above: Order Comment: No: D o not add to previous draw Performed By: #### 8 5499 #### [facility] [address] [place] [address], [place] RBC (Bld) [#/Vol] 4.85 10*6/uL Normal 3.80-5.00 The [facility] Comment on above: Order Comment: No: D o not add to previous draw Performed By: #### 8 5499 #### [facility] [address] [place] [address], [place] WBC (Bld) [#/Vol] 10.90 10*3/uL High 4.00-10.60 [facility] Comment on above: Order Comment: No: D o not add to previous draw Performed By: #### 8 5499 #### [facility] [address] [place] [address], [place] POC GLUCOSE LABon 04-17-2020 Glucose [Mass/Vol] 109 mg/dL High 70-100 The [facility] Comment on above: Performed By: #### 3 1792 #### [facility] [address] [place] [address], [place] Glucose [Mass/Vol] 93 mg/dL Normal 70-100 The [facility] Comment on above: Performed By: #### 3 5200 #### [facility] [address] [place] [address], [place] Glucose [Mass/Vol] 101 mg/dL High 70-100 The [facility] Comment on above: Performed By: #### 8 5499 ####[facility] [place] [address], [facility] Glucose [Mass/Vol] 106 mg/dL High 70-100 The [facility] Comment on above: Performed By: #### 8 5499 #### [facility] [address] *BLOOD CULTUREon 04-16-2020 *BLOOD CULTURE Clinical Report: (D) Specimen: BLOOD CULTURE Collected: 04/16/2020 00:31 Status: Final Last Updated: 04/21/2020 06:49 CULT RES (Final) No Growth Day 5 Normal [facility] Comment on above: Performed By: #### 8 [id number] #### [facility] [address] APTTon 04-16-2020 aPTT Coag (Bld) [Time] 72.4 s Critically high 25.0-35.0 [facility] Comment on above: Order Comment: [...] IU/ml . Performed By: #### 1 0, 37759 #### [facility] [address] BASIC METABOLIC PANELon 03-20 Calcium [Mass/Vol] 9.5 mg/dL Normal 8.6-10.3 The [facility] Comment on above: Order Comment: No: D o not add to previous draw Performed By: #### 1 0, 61596 #### [facility] [address] [place] [address], [place] Chloride [Moles/Vol] 102 mmol/L Normal 98-107 [facility] Comment on above: Order Comment: No: D o not add to previous draw Performed By: #### 1 0, 07290 #### [facility] [address] [place] [address], [place] CO2 [Moles/Vol] 25 mmol/L Normal 21-31 The [facility] Comment on above: Order Comment: No: D o not add to previous draw Performed By: #### 1 0, 74496 #### [facility] [address] [place] [address], [place] Creatinine [Mass/Vol] 0.69 mg/dL Normal 0.60-1.20 [facility] Comment on above: Order Comment: No: D o not add to previous draw Performed By: #### 1 69, 54600 #### [facility] [address] [place] [address], [place] GFR/1.73 sq M.predicted among blacks MDRD (S/P/Bld) [Vol rate/Area] mL/min/{1.73_m2} Normal >60 [facility] Comment on above: Order Comment: No: D o not add to previous draw Performed By: #### 1 69, 61238 #### [facility] [address] [place] [address], [place] GFR/1.73 sq M.predicted among non-blacks MDRD (S/P/Bld) [Vol rate/Area] mL/min/{1.73_m2} Normal >60 [facility] Comment on above: Order Comment: No: D o not add to previous draw Performed By: #### 1 69, 61159 #### [facility] [address] [place] [address], [place] Glucose [Mass/Vol] 102 mg/dL High 70-100 The [facility] Comment on above: Order Comment: No: D o not add to previous draw Performed By: #### 1 0070, 74879 #### [facility] [address] [place] [address], [place] Potassium [Moles/Vol] 3.5 mmol/L Normal 3.5-5.1 [facility] Comment on above: Order Comment: No: D o not add to previous draw Performed By: #### 1 0070, 80313 #### [facility] [address] [place] [address], [place] Sodium [Moles/Vol] 136 mmol/L Normal 136-145 The [facility] Comment on above: Order Comment: No: D o not add to previous draw Performed By: #### 1 0, 78432 #### [facility] [address] [place] [address], [place] Urea nitrogen [Mass/Vol] 14 mg/dL Normal 7-25 [facility] Comment on above: Order Comment: No: D o not add to previous draw Performed By: #### 1 0, 70543 #### [facility] [address] [place] [address], [place] Calcium [Mass/Vol] 10.0 mg/dL Normal 8.6-10.3 [facility] Comment on above: Order Comment: No: D o not add to previous draw Performed By: #### 3 179 #### [facility] [address] [place] [address], [place] Chloride [Moles/Vol] 101 mmol/L Normal 98-107 [facility] Comment on above: Order Comment: No: D o not add to previous draw Performed By: #### 3 179 #### [facility] [address] [place] [address], [place] CO2 [Moles/Vol] 26 mmol/L Normal 21-31 The [facility] Comment on above: Order Comment: No: D o not add to previous draw Performed By: #### 3 1791 #### [facility] [address] [place] [address], [place] Creatinine [Mass/Vol] 0.74 mg/dL Normal 0.60-1.20 [facility] Comment on above: Order Comment: No: D o not add to previous draw Performed By: #### 3 1790 #### [facility] [address] [place] [address], [place] GFR/1.73 sq M.predicted among blacks MDRD (S/P/Bld) [Vol rate/Area] mL/min/{1.73_m2} Normal >60 [facility] Comment on above: Order Comment: No: D o not add to previous draw Performed By: #### 3 1 #### [facility] [address] [place] [address], [place] GFR/1.73 sq M.predicted among non-blacks MDRD (S/P/Bld) [Vol rate/Area] mL/min/{1.73_m2} Normal >60 [facility] Comment on above: Order Comment: No: D o not add to previous draw Performed By: #### 3 1790 #### [facility] [address] [place] [address], [place] Glucose [Mass/Vol] 109 mg/dL High 70-100 The [facility] Comment on above: Order Comment: No: D o not add to previous draw Performed By: #### 3 1791 #### [facility] [address] [place] [address], [place] Potassium [Moles/Vol] 3.7 mmol/L Normal 3.5-5.1 [facility] Comment on above: Order Comment: No: D o not add to previous draw Performed By: #### 3 1790 #### [facility] [address] [place] [address], [place] Sodium [Moles/Vol] 136 mmol/L Normal 136-145 The [facility] Comment on above: Order Comment: No: D o not add to previous draw Performed By: #### 3 1791 #### [facility] [address] [place] [id number], [facility] Urea nitrogen [Mass/Vol] 14 mg/dL Normal 7-25 [facility] Comment on above: Order Comment: No: D o not add to previous draw Performed By: #### 3 1791 #### [facility] [address] [place] [id number], [facility] CBC W/DIFFon 04-16-2020 ABS IMM GRANS 0.0 10*3/uL Normal 0.0-0.2 The [facility] Comment on above: Order Comment: No: D o not add to previous draw Performed By: #### 8 5499 #### [facility] [address] [place] [address], [facility] ABS NEUTROPHILS 7.2 10*3/uL Normal 1.6-7.6 The [facility] Comment on above: Order Comment: No: D o not add to previous draw Performed By: #### 8 5499 #### [facility] [address] [place] [address], [facility] Basophils (Bld) [#/Vol] 0.1 10*3/uL Normal 0.0-0.2 [facility] Comment on above: Order Comment: No: D o not add to previous draw Performed By: #### 8 5499 #### [facility] [address] [place] [id number], [facility] Basophils/100 WBC (Bld) 0.7 % Normal 0.0-1.0 [facility] Comment on above: Order Comment: No: D o not add to previous draw Performed By: #### 8 5499 #### [facility] [address] [place] [id number], [place] Eosinophils (Bld) [#/Vol] 0.2 10*3/uL Normal 0.0-0.5 [facility] Comment on above: Order Comment: No: D o not add to previous draw Performed By: #### 8 5499 #### [facility] [address] [place] [address], [facility] Eosinophils/100 WBC (Bld) 2.1 % Normal 0.0-6.0 [facility] Comment on above: Order Comment: No: D o not add to previous draw Performed By: #### 8 5499 #### [facility] [address] [place] [address], [facility] Erythrocyte distribution width (RBC) [Ratio] 14.4 % Normal 11.5-15.0 [facility] Comment on above: Order Comment: No: D o not add to previous draw Performed By: #### 8 5499 #### [facility] [address] [place] [address], [facility] Hematocrit (Bld) [Volume fraction] 43.2 % Normal 36.0-45.0 [facility] Comment on above: Order Comment: No: D o not add to previous draw Performed By: #### 8 5499 #### [facility] [address] [place] [address], [facility] Hemoglobin (Bld) [Mass/Vol] 14.2 g/dL Normal 12.0-15.0 [facility] Comment on above: Order Comment: No: D o not add to previous draw Performed By: #### 8 5499 #### [facility] [address] [place] [id number], [facility] IMMATURE GRANS 0.3 % Normal 0.0-1.0 The [facility] Comment on above: Order Comment: No: D o not add to previous draw Performed By: #### 8 5499 #### [facility] [address] [place] [id number], [facility] Lymphocytes (Bld) [#/Vol] 2.9 10*3/uL Normal 1.2-4.0 [facility] Comment on above: Order Comment: No: D o not add to previous draw Performed By: #### 8 5499 #### [facility] [address] [place] [id number], [facility] Lymphocytes/100 WBC (Bld) 25.1 % Normal 20.0-45.0 [facility] Comment on above: Order Comment: No: D o not add to previous draw Performed By: #### 8 5499 #### [facility] [address] [place] [id number], [facility] MCH (RBC) [Entitic mass] 29.5 pg Normal 27.0-33.0 [facility] Comment on above: Order Comment: No: D o not add to previous draw Performed By: #### 8 5499 #### [facility] [address] [place] [id number], [facility] MCHC (RBC) [Mass/Vol] 32.9 g/dL Normal 32.0-35.0 [facility] Comment on above: Order Comment: No: D o not add to previous draw Performed By: #### 8 5499 #### [facility] [address] [place] [id number], [facility] MCV (RBC) [Entitic vol] 89.8 fL Normal 82.0-98.0 [facility] Comment on above: Order Comment: No: D o not add to previous draw Performed By: #### 8 5499 #### [facility] [address] [place] [address], [facility] Monocytes (Bld) [#/Vol] 0.9 10*3/uL Normal 0.1-1.0 [facility] Comment on above: Order Comment: No: D o not add to previous draw Performed By: #### 8 5499 #### [facility] [address] [place] [id number], [place] MONOS 8.0 % Normal 5.0-12.0 [facility] Comment on above: Order Comment: No: D o not add to previous draw Performed By: #### 8 5499 #### [facility] [address] [place] [id number], [place] Neutrophils/100 WBC (Bld) 63.8 % Normal 40.0-72.0 [facility] Comment on above: Order Comment: No: D o not add to previous draw Performed By: #### 8 5499 #### [facility] [address] [place] [address], [place] Nucleated RBC/100 WBC (Bld) [Ratio] 0 % Normal 0-0 [facility] Comment on above: Order Comment: No: D o not add to previous draw Performed By: #### 8 5499 #### [facility] [address] [place] [address], [place] PLAT CNT 335 10*3/uL Normal 150-400 The [facility] Comment on above: Order Comment: No: D o not add to previous draw Performed By: #### 8 5499 #### [facility] [address] [place] [address], [place] RBC (Bld) [#/Vol] 4.81 10*6/uL Normal 3.80-5.00 The [facility] Comment on above: Order Comment: No: D o not add to previous draw Performed By: #### 8 5499 #### [facility] [address] [place] [address], [place] WBC (Bld) [#/Vol] 11.34 10*3/uL High 4.00-10.60 [facility] Comment on above: Order Comment: No: D o not add to previous draw Performed By: #### 8 5499 #### [facility] [address] [place] [address], [place] CTA CHESTon 04-16-2020 CTA CHEST [facility] Department of Radiology [address] [place] [id number] Patient Name: HORTENSIA BATES : 1955 Sex: F Age: Race: White Pt. Location: [id number] Patient Status: D Ordered Date: 04/16/2020 9:05:00 [...] criteria Electronically signed: Jax Perez. Transcribed by: [email or web address], User Resident: Electronically Signed by: LA NENA DIAZ @ 05/28/2020 12:26 AM Normal [facility] Comment on above: Order Comment: Other , Planned for AFib albation, anatomy of pulmonary veins MAGNESIUM BLOODon 04-16-2020 Magnesium [Mass/Vol] 1.7 mg/dL Low 1.9-2.7 [facility] Comment on above: Order Comment: No: D o not add to previous draw Performed By: #### 1 0070, 09210 #### [facility] [address] [place] [address], [place] Magnesium [Mass/Vol] 1.8 mg/dL Low 1.9-2.7 [facility] Comment on above: Order Comment: No: D o not add to previous draw Performed By: #### 1 0070, 96167 #### [facility] [address] [place] [address], [place] PHOSPHORUS BLOODon 0 Phosphate [Mass/Vol] 3.6 mg/dL Normal 2.5-5.0 [facility] Comment on above: Order Comment: No: D o not add to previous draw Performed By: #### 1 0070, 19375 #### [facility] [address] [place] [address], [place] POC GLUCOSE LABon 04-16-2020 Glucose [Mass/Vol] 111 mg/dL High 70-100 [facility] Comment on above: Performed By: #### 8 3419 ####[facility] [place] [address], [place] Glucose [Mass/Vol] 122 mg/dL High 70-100 [facility] Comment on above: Performed By: #### 3 5200 #### [facility] [address] [place] [address], [place] Glucose [Mass/Vol] 105 mg/dL High 70-100 [facility] Comment on above: Performed By: #### 8 6349 ####[facility] [place] [address], [place] Glucose [Mass/Vol] 106 mg/dL High 70-100 [facility] Comment on above: Performed By: #### 8 5499 #### [facility] [address] [facility]. [address] PROTHROMBIN TIMEon 0 INR Coag (PPP) [Relative time] 2.24 {INR} High 0.91-1.16 [facility] Comment on above: Order Comment: [...] CHEST 1995;108:231S-246S. Performed By: #### 1 0070, 38866 #### [facility] [address] [facility] [place] [address], [facility] PT Coag (PPP) [Time] 24.9 s High 12.3-14.8 [facility] Comment on above: Order Comment: No: D o not add to previous draw Result Comment: ALL RESULTS MUST BE INTERPRETED WITH RESPECT TO BLOOD DRAWING ARTIFACT OR DILUTION ERROR OF ANTICOAGULANT AT THE TIME OF SAMPLING. Performed By: #### 1 0070, 47734 #### [facility] [address] [facility] [place] [address], [facility] TROPONIN-Ion 04-16-2020 Troponin I.cardiac [Mass/Vol] 0.01 ng/mL Normal 0.00-0.04 [facility] Comment on above: Order Comment: No: D o not add to previous draw Result Comment: REFE RENCE RANGES: 0.00 - 0.04 ng/ml NORMAL 0.05 - 0.50 ng/ml INDETERMINATE > 0.50 ng/ml CONSISTENT WITH AN M.I. Performed By: #### 3 5200 #### [facility] [address] Troponin I.cardiac [Mass/Vol] 0.01 ng/mL Normal 0.00-0.04 [facility] Comment on above: Order Comment: No: D o not add to previous draw Result Comment: REFE RENCE RANGES: 0.00 - 0.04 ng/ml NORMAL 0.05 - 0.50 ng/ml INDETERMINATE > 0.50 ng/ml CONSISTENT WITH AN M.I. Performed By: #### 3 1791 #### [facility] [address] Troponin I.cardiac [Mass/Vol] 0.01 ng/mL Normal 0.00-0.04 [facility] Comment on above: Order Comment: No: D o not add to previous draw Result Comment: REFE RENCE RANGES: 0.00 - 0.04 ng/ml NORMAL 0.05 - 0.50 ng/ml INDETERMINATE > 0.50 ng/ml CONSISTENT WITH AN M.I. Performed By: #### 3 1791 #### [facility] [address] UFH HEPARIN ASSAYon 04-16-20 20 UNFRACTIONATED HEPARIN 0.28 IU/mL Low 0.30-0.70 [facility] Comment on above: Result Comment: [place] roxaban and Apixaban will interfere with the anti Xa assay used to monitor UFH and LMWH. Performed By: #### 1 0070, 75896 #### [facility] [address] MAGNESIUM BLOODon 04-01-2020 Magnesium [Mass/Vol] 2.0 mg/dL Normal 1.9-2.7 [facility] Comment on above: Order Comment: No: D o not add to previous draw Performed By: #### 1 0070, 02413 #### [facility] [address] [place] [address], [facility] POTASSIUM BLOODon 04-01-2020 Potassium [Moles/Vol] 3.6 mmol/L Normal 3.5-5.1 [facility] Comment on above: Order Comment: No: D o not add to previous draw Performed By: #### 1 0, 63372 #### [facility] [address] [place] [address], [facility] PROTHROMBIN TIMEon 0 INR Coag (PPP) [Relative time] 1.99 {INR} High 0.91-1.16 [facility] Comment on above: Order Comment: Unkno [...] 1995;108:231S-246S. Performed By: #### 8 5499 #### [facility] [address] [place] [address], [facility] PT Coag (PPP) [Time] 22.7 s High 12.3-14.8 The [facility] [place] [facility] Comment on above: Order Comment: Unkno wn Result Comment: ALL RESULTS MUST BE INTERPRETED WITH RESPECT TO BLOOD DRAWING ARTIFACT OR DILUTION ERROR OF ANTICOAGULANT AT THE TIME OF SAMPLING. Performed By: #### 8 5499 #### [facility] [address] [place] [address], [place] BASIC METABOLIC PANELon 11-1 Calcium [Mass/Vol] 8.8 mg/dL Normal 8.6-10.3 [facility] Comment on above: Order Comment: No: D o not add to previous draw Performed By: #### 1 0070, 05034 #### [facility] [address] [place] [address], [place] Chloride [Moles/Vol] 103 mmol/L Normal 98-107 [facility] Comment on above: Order Comment: No: D o not add to previous draw Performed By: #### 1 0, 18467 #### [facility] [address] [place] [address], [place] CO2 [Moles/Vol] 26 mmol/L Normal 21-31 The [facility] Comment on above: Order Comment: No: D o not add to previous draw Performed By: #### 1 0, 07070 #### [facility] [address] [place] [address], [place] Creatinine [Mass/Vol] 0.75 mg/dL Normal 0.60-1.20 [facility] Comment on above: Order Comment: No: D o not add to previous draw Performed By: #### 1 0, 62491 #### [facility] [address] [place] [address], [place] GFR/1.73 sq M.predicted among blacks MDRD (S/P/Bld) [Vol rate/Area] mL/min/{1.73_m2} Normal >60 [facility] Comment on above: Order Comment: No: D o not add to previous draw Performed By: #### 1 0070, 59816 #### [facility] [address] [place] [address], [place] GFR/1.73 sq M.predicted among non-blacks MDRD (S/P/Bld) [Vol rate/Area] mL/min/{1.73_m2} Normal >60 [facility] Comment on above: Order Comment: No: D o not add to previous draw Performed By: #### 1 0, 19844 #### [facility] [address] [place] [address], [place] Glucose [Mass/Vol] 88 mg/dL Normal 70-100 The [facility] Comment on above: Order Comment: No: D o not add to previous draw Performed By: #### 1 69, 01864 #### [facility] [address] [place] [address], [place] Potassium [Moles/Vol] 3.8 mmol/L Normal 3.5-5.1 [facility] Comment on above: Order Comment: No: D o not add to previous draw Performed By: #### 1 0, 98656 #### [facility] [address] [place] [address], [place] Sodium [Moles/Vol] 135 mmol/L Low 136-145 The [facility] Comment on above: Order Comment: No: D o not add to previous draw Performed By: #### 1 69, 43463 #### [facility] [address] [place] [address], [place] Urea nitrogen [Mass/Vol] 17 mg/dL Normal 7-25 [facility] Comment on above: Order Comment: No: D o not add to previous draw Performed By: #### 1 0, 27664 #### [facility] [address] [place] [address], [place] MAGNESIUM BLOODon 03-31-2020 Magnesium [Mass/Vol] 1.9 mg/dL Normal 1.9-2.7 [facility] Comment on above: Order Comment: No: D o not add to previous draw Performed By: #### 1 0070, 79146 #### [facility] [address] [place] [address], [place] POC GLUCOSE LABon 03-31-2020 Glucose [Mass/Vol] 95 mg/dL Normal 70-100 [facility] Comment on above: Performed By: #### 3 5200 #### [facility] [address] [place] [address], [place] Glucose [Mass/Vol] 86 mg/dL Normal 70-100 The [facility] Comment on above: Performed By: #### 8 5499 #### [facility] [address] [place] [address], [place] Glucose [Mass/Vol] 82 mg/dL Normal 70-100 The [facility] Comment on above: Performed By: #### 3 1792 #### [facility] [address] [place] [address], [place] Glucose [Mass/Vol] 92 mg/dL Normal 70-100 The [facility] Comment on above: Performed By: #### 8 5499 ####[facility] [place] [address], [place] Glucose [Mass/Vol] 96 mg/dL Normal 70-100 The [facility] Comment on above: Performed By: #### 8 5499 ####[facility] [place] [address], [place] PROTHROMBIN TIMEon 0 INR Coag (PPP) [Relative time] 1.80 {INR} High 0.91-1.16 [facility] Comment on above: Order Comment: [...] CHEST 1995;108:231S-246S. Performed By: #### 1 0, 00544 #### [facility] [address] PT Coag (PPP) [Time] 21.0 s High 12.3-14.8 [facility] Comment on above: Order Comment: No: D o not add to previous draw Result Comment: ALL RESULTS MUST BE INTERPRETED WITH RESPECT TO BLOOD DRAWING ARTIFACT OR DILUTION ERROR OF ANTICOAGULANT AT THE TIME OF SAMPLING. Performed By: #### 1 69, 14702 #### [facility] [address] [employer] BASIC METABOLIC PANELon 11-1 Calcium [Mass/Vol] 9.0 mg/dL Normal 8.6-10.3 The [facility] Comment on above: Order Comment: No: D o not add to previous draw Performed By: #### 1 69, 12725 #### [facility] [address] [facility] [place] [address], [facility] Chloride [Moles/Vol] 101 mmol/L Normal 98-107 [facility] Comment on above: Order Comment: No: D o not add to previous draw Performed By: #### 1 69, 88472 #### [facility] [address] [facility] [place] [address], [place] CO2 [Moles/Vol] 25 mmol/L Normal 21-31 The [facility] Comment on above: Order Comment: No: D o not add to previous draw Performed By: #### 1 0070, 30819 #### [facility] [address] [place] [address], [place] Creatinine [Mass/Vol] 0.90 mg/dL Normal 0.60-1.20 [facility] Comment on above: Order Comment: No: D o not add to previous draw Performed By: #### 1 0, 26751 #### [facility] [address] [place] [address], [place] GFR/1.73 sq M.predicted among blacks MDRD (S/P/Bld) [Vol rate/Area] mL/min/{1.73_m2} Normal >60 [facility] Comment on above: Order Comment: No: D o not add to previous draw Performed By: #### 1 69, 97321 #### [facility] [address] [place] [address], [place] GFR/1.73 sq M.predicted among non-blacks MDRD (S/P/Bld) [Vol rate/Area] mL/min/{1.73_m2} Normal >60 [facility] Comment on above: Order Comment: No: D o not add to previous draw Performed By: #### 1 0, 77028 #### [facility] [address] [place] [address], [place] Glucose [Mass/Vol] 77 mg/dL Normal 70-100 [facility] Comment on above: Order Comment: No: D o not add to previous draw Performed By: #### 1 0, 86785 #### [facility] [address] [place] [address], [place] Potassium [Moles/Vol] 4.0 mmol/L Normal 3.5-5.1 [facility] Comment on above: Order Comment: No: D o not add to previous draw Performed By: #### 1 0, 74957 #### [facility] [address] [place] [address], [facility] Sodium [Moles/Vol] 135 mmol/L Low 136-145 The [facility] Comment on above: Order Comment: No: D o not add to previous draw Performed By: #### 1 0, 41597 #### [facility] [address] [place] [id number], [facility] Urea nitrogen [Mass/Vol] 17 mg/dL Normal 7-25 [facility] Comment on above: Order Comment: No: D o not add to previous draw Performed By: #### 1 69, 82700 #### [facility] [address] [place] [id number], [facility] CBC COMPLETE BLOOD COUNTon 05-30-2019 Erythrocyte distribution width (RBC) [Ratio] 14.9 % Normal 11.5-15.0 [facility] Comment on above: Order Comment: No: D o not add to previous draw Performed By: #### 8 5499 #### [facility] [address] [place] [id number], [facility] Hematocrit (Bld) [Volume fraction] 47.5 % High 36.0-45.0 [facility] Comment on above: Order Comment: No: D o not add to previous draw Performed By: #### 8 5499 #### [facility] [address] [place] [address], [facility] Hemoglobin (Bld) [Mass/Vol] 15.3 g/dL High 12.0-15.0 [facility] Comment on above: Order Comment: No: D o not add to previous draw Performed By: #### 8 5499 #### [facility] [address] [place] [address], [place] MCH (RBC) [Entitic mass] 29.7 pg Normal 27.0-33.0 [facility] Comment on above: Order Comment: No: D o not add to previous draw Performed By: #### 8 5499 #### [facility] [address] [place] [address], [facility] MCHC (RBC) [Mass/Vol] 32.2 g/dL Normal 32.0-35.0 [facility] Comment on above: Order Comment: No: D o not add to previous draw Performed By: #### 8 5499 #### [facility] [address] [place] [address], [facility] MCV (RBC) [Entitic vol] 92.1 fL Normal 82.0-98.0 [facility] Comment on above: Order Comment: No: D o not add to previous draw Performed By: #### 8 5499 #### [facility] [address] [place] [address], [facility] Nucleated RBC/100 WBC (Bld) [Ratio] 0 % Normal 0-0 [facility] Comment on above: Order Comment: No: D o not add to previous draw Performed By: #### 8 5499 #### [facility] [address] [place] [address], [facility] PLAT CNT 321 10*3/uL Normal 150-400 The [facility] Comment on above: Order Comment: No: D o not add to previous draw Performed By: #### 8 5499 #### [facility] [address] [place] [id number], [facility] RBC (Bld) [#/Vol] 5.16 10*6/uL High 3.80-5.00 [facility] Comment on above: Order Comment: No: D o not add to previous draw Performed By: #### 8 5499 #### [facility] [address] [place] [address], [place] WBC (Bld) [#/Vol] 12.02 10*3/uL High 4.00-10.60 [facility] Comment on above: Order Comment: No: D o not add to previous draw Performed By: #### 8 5499 #### [facility] [address] [place] [address], [facility] Cardiovascular Lab Reporton 03-30-2020 Cardiovascular Lab Report [facility] Patient Name: Pauly [facility] Hortensia Berry MR #: [id number] Department of Physician: Jessica Lopez M.D. Division of Service Date: 03/30/2020 Cardiology Birthdate: 1955 Adult Cardiovascular Room #: [id number] [facility] [address] [place], [place] [address] Cardiovascular Laboratory Report CLINICAL PRESENTATION: The patient [...] infiltrated over the right radial artery. A 6-[place] Terumo Glidesheath slender was placed in right radial artery. The radial anti-vasospasm cocktail of verapamil 2.5 mg and nitroglycerin 200 mcg was administered through the sheath. All catheter exchanges were made over the Magic Torque guidewire. A 5-[place] JR5 was used to engage the right coronary artery. A 5-[place] JL3.5 was used to engage the left [...] Arango M.D. Date Trans: 03/30/2020 01:43 P/mmo [id number] Normal [facility] MAGNESIUM BLOODon 03-30-2020 Magnesium [Mass/Vol] 2.1 mg/dL Normal 1.9-2.7 [facility] Comment on above: Order Comment: No: D o not add to previous draw Performed By: #### 1 0070, 17546 #### [facility] SYSTEM [address] [place] [address], [facility] POC GLUCOSE LABon 03-30-2020 Glucose [Mass/Vol] 94 mg/dL Normal 70-100 The [facility] Comment on above: Performed By: #### 8 [id number] ####[facility] [place] [address], [place] Glucose [Mass/Vol] 95 mg/dL Normal 70-100 The [facility] Comment on above: Performed By: #### 3 0527 #### [facility] [address] [place] [address], [place] Glucose [Mass/Vol] 86 mg/dL Normal 70-100 The [facility] Comment on above: Performed By: #### 8 [id number] ####[facility] PROTHROMBIN TIMEon 0 INR Coag (PPP) [Relative time] 1.88 {INR} High 0.91-1.16 The [facility] Comment on above: Order Comment: Yes: [...] 1995;108:231S-246S. Performed By: #### 8 [id number] #### [facility] [address] PT Coag (PPP) [Time] 21.7 s High 12.3-14.8 The [facility] Comment on above: Order Comment: Yes: Add to Previous draw if able Result Comment: ALL RESULTS MUST BE INTERPRETED WITH RESPECT TO BLOOD DRAWING ARTIFACT OR DILUTION ERROR OF ANTICOAGULANT AT THE TIME OF SAMPLING. Performed By: #### 8 [id number] #### [facility] [address] *SARS-CoV-2 COVID-19on 03-29 SARS-CoV-2 (COVID-19) RNA JAS+probe Ql (Unsp spec) Not detected Normal Not Detected The [facility] Comment on above: Order Comment: The A ptima SARS-CoV-2 assay is a nucleic acid amplification test intended for the qualitative detection of RNA from SARS-CoV-2 isolated and purified from nasopharyngeal (LINOTYPE OPERATOR),oropharyngeal (OP), nasal swab, sputum, and bronchoalveolar lavage (BAL) specimens from patients with signs and symptoms of infection who are suspected of COVID-19. Results are for the identification of SARS-CoV-2 RNA. The SARS-CoV-2 RNA is generally detectable during the acute phase of infection. The Aptima SARS-CoV-2 Assay on the Patient Communicator and Patient Communicator Fusion system is intended for use by laboratory personnel specifically instructed and trained in the operation of the [place] and Patient Communicator Fusion system. The Aptima SARS-CoV-2 assay is [...] information. Performed By: #### 3 [id number] #### [facility] [address] [facility] [place] [address], [facility] APTTon 03-29-2020 aPTT Coag (Bld) [Time] 52.2 s High 25.0-35.0 The [facility] Comment on above: Order Comment: [...] >0.10 Performed By: #### 8 [id number] #### [facility] [address] [employer] [address], [facility] CBC W/DIFFon 03-29-2020 ABS IMM GRANS 0.0 10*3/uL Normal 0.0-0.2 The [facility] Comment on above: Order Comment: No: D o not add to previous draw Performed By: #### 8 [id number] #### [facility] [address] [place] [address], [facility] ABS NEUTROPHILS 7.5 10*3/uL Normal 1.6-7.6 The [facility] Comment on above: Order Comment: No: D o not add to previous draw Performed By: #### 8 [id number] #### [facility] [address] [place] [address], [facility] Basophils (Bld) [#/Vol] 0.1 10*3/uL Normal 0.0-0.2 The [facility] Comment on above: Order Comment: No: D o not add to previous draw Performed By: #### 8 [id number] #### [facility] [address] [place] [id number], [place] Basophils/100 WBC (Bld) 0.6 % Normal 0.0-1.0 The [facility] Comment on above: Order Comment: No: D o not add to previous draw Performed By: #### 8 [id number] #### [facility] [address] [place] [address], [facility] Eosinophils (Bld) [#/Vol] 0.3 10*3/uL Normal 0.0-0.5 The [facility] Comment on above: Order Comment: No: D o not add to previous draw Performed By: #### 8 [id number] #### [facility] [address] [place] [id number], [place] Eosinophils/100 WBC (Bld) 2.1 % Normal 0.0-6.0 The [facility] Comment on above: Order Comment: No: D o not add to previous draw Performed By: #### 8 [id number] #### [facility] [address] Erythrocyte distribution width (RBC) [Ratio] 14.7 % Normal 11.5-15.0 The [facility] Comment on above: Order Comment: No: D o not add to previous draw Performed By: #### 8 [id number] #### [facility] [address] [place] [address], [facility] Hematocrit (Bld) [Volume fraction] 48.0 % High 36.0-45.0 The [facility] Comment on above: Order Comment: No: D o not add to previous draw Performed By: #### 8 [id number] #### [facility] [address] [facility] [place] [address], [facility] Hemoglobin (Bld) [Mass/Vol] 15.5 g/dL High 12.0-15.0 The [facility] Comment on above: Order Comment: No: D o not add to previous draw Performed By: #### 8 [id number] #### [facility] [address] [place] [address], [facility] IMMATURE GRANS 0.3 % Normal 0.0-1.0 The [facility] Comment on above: Order Comment: No: D o not add to previous draw Performed By: #### 8 [id number] #### [facility] [address] [place] [address], [facility] Lymphocytes (Bld) [#/Vol] 3.7 10*3/uL Normal 1.2-4.0 The [facility] Comment on above: Order Comment: No: D o not add to previous draw Performed By: #### 8 [id number] #### [facility] [address] [place] [address], [facility] Lymphocytes/100 WBC (Bld) 29.6 % Normal 20.0-45.0 The [facility] Comment on above: Order Comment: No: D o not add to previous draw Performed By: #### 8 [id number] #### [facility] [address] [place] [address], [facility] MCH (RBC) [Entitic mass] 28.8 pg Normal 27.0-33.0 The [facility] Comment on above: Order Comment: No: D o not add to previous draw Performed By: #### 8 [id number] #### [facility] [address] [place] [id number], [facility] MCHC (RBC) [Mass/Vol] 32.3 g/dL Normal 32.0-35.0 The [facility] Comment on above: Order Comment: No: D o not add to previous draw Performed By: #### 8 [id number] #### [facility] [address] [place] [id number], [facility] MCV (RBC) [Entitic vol] 89.1 fL Normal 82.0-98.0 The [facility] Comment on above: Order Comment: No: D o not add to previous draw Performed By: #### 8 [id number] #### [facility] [address] [place] [id number], [facility] Monocytes (Bld) [#/Vol] 0.9 10*3/uL Normal 0.1-1.0 The [facility] Comment on above: Order Comment: No: D o not add to previous draw Performed By: #### 8 [id number] #### [facility] [address] [place] [id number], [facility] MONOS 7.2 % Normal 5.0-12.0 The [facility] Comment on above: Order Comment: No: D o not add to previous draw Performed By: #### 8 [id number] #### [facility] [address] [place] [id number], [facility] Neutrophils/100 WBC (Bld) 60.2 % Normal 40.0-72.0 The [facility] Comment on above: Order Comment: No: D o not add to previous draw Performed By: #### 8 [id number] #### [facility] [address] [place] [id number], [facility] Nucleated RBC/100 WBC (Bld) [Ratio] 0 % Normal 0-0 [facility] Comment on above: Order Comment: No: D o not add to previous draw Performed By: #### 8 [id number] #### [facility] [address] [place] [id number], [facility] PLAT CNT 366 10*3/uL Normal 150-400 The [facility] Comment on above: Order Comment: No: D o not add to previous draw Performed By: #### 8 [id number] #### [facility] [address] [place] [id number], [facility] RBC (Bld) [#/Vol] 5.39 10*6/uL High 3.80-5.00 [facility] Comment on above: Order Comment: No: D o not add to previous draw Performed By: #### 8 [id number] #### [facility] [address] [place] [id number], [facility] WBC (Bld) [#/Vol] 12.38 10*3/uL High 4.00-10.60 [facility] Comment on above: Order Comment: No: D o not add to previous draw Performed By: #### 8 [id number] #### [facility] [address] [place] [address], [facility] COMP METABOLIC PANELon 03-29 Albumin [Mass/Vol] 4.1 g/dL Normal 3.5-5.7 [facility] Comment on above: Order Comment: No: D o not add to previous draw Performed By: #### 1 0070, 47223 #### [facility] [address] [place] [id number], [facility] ALKALINE PHOSPH 48 IU/L Normal 34-104 The [facility] Comment on above: Order Comment: No: D o not add to previous draw Performed By: #### 1 0070, 31629 #### [facility] [address] [place] [id number], [place] ALT [Catalytic activity/Vol] 19 U/L Normal 7-52 The [facility] Comment on above: Order Comment: No: D o not add to previous draw Performed By: #### 1 0, 59740 #### [facility] [address] [place] [address], [place] AST [Catalytic activity/Vol] 19 U/L Normal 13-39 The [facility] Comment on above: Order Comment: No: D o not add to previous draw Performed By: #### 1 0, 40848 #### [facility] [address] [place] [address], [place] Bilirubin [Mass/Vol] 0.8 mg/dL Normal 0.3-1.0 The [facility] Comment on above: Order Comment: No: D o not add to previous draw Performed By: #### 1 69, 97863 #### [facility] [address] [place] [address], [place] Calcium [Mass/Vol] 9.8 mg/dL Normal 8.6-10.3 [facility] Comment on above: Order Comment: No: D o not add to previous draw Performed By: #### 1 69, 29952 #### [facility] [address] [place] [address], [place] Chloride [Moles/Vol] 100 mmol/L Normal 98-107 The [facility] Comment on above: Order Comment: No: D o not add to previous draw Performed By: #### 1 69, 38833 #### [facility] [address] [place] [address], [place] CO2 [Moles/Vol] 26 mmol/L Normal 21-31 The [facility] Comment on above: Order Comment: No: D o not add to previous draw Performed By: #### 1 69, 10690 #### [facility] [address] [place] [address], [place] Creatinine [Mass/Vol] 0.71 mg/dL Normal 0.60-1.20 The [facility] Comment on above: Order Comment: No: D o not add to previous draw Performed By: #### 1 0070, 74964 #### [facility] [address] [place] [address], [place] GFR/1.73 sq M.predicted among blacks MDRD (S/P/Bld) [Vol rate/Area] mL/min/{1.73_m2} Normal >60 The [facility] Comment on above: Order Comment: No: D o not add to previous draw Performed By: #### 1 0, 94479 #### [facility] [address] [place] [address], [place] GFR/1.73 sq M.predicted among non-blacks MDRD (S/P/Bld) [Vol rate/Area] mL/min/{1.73_m2} Normal >60 The [facility] Comment on above: Order Comment: No: D o not add to previous draw Performed By: #### 1 0, 16336 #### [facility] [address] [place] [address], [place] Glucose [Mass/Vol] 107 mg/dL High 70-100 The [facility] Comment on above: Order Comment: No: D o not add to previous draw Performed By: #### 1 0, 61542 #### [facility] [address] [place] [address], [place] Potassium [Moles/Vol] 3.9 mmol/L Normal 3.5-5.1 The [facility] Comment on above: Order Comment: No: D o not add to previous draw Performed By: #### 1 0070, 47422 #### [facility] [address] [place] [address], [place] Protein [Mass/Vol] 7.5 g/dL Normal 6.0-8.3 [facility] Comment on above: Order Comment: No: D o not add to previous draw Performed By: #### 1 0, 99993 #### [facility] [address] [place] [address], [facility] Sodium [Moles/Vol] 136 mmol/L Normal 136-145 [facility] Comment on above: Order Comment: No: D o not add to previous draw Performed By: #### 1 0, 69223 #### [facility] [address] [place] [address], [facility] Urea nitrogen [Mass/Vol] 12 mg/dL Normal 7-25 The [facility] Comment on above: Order Comment: No: D o not add to previous draw Performed By: #### 1 69, 27275 #### [facility] [address] [facility] [address] D DIMER TESTon 03-29-2020 D-DIMER TEST <0.27 Low 0.27-0.49 The [facility] Comment on above: Order Comment: No: D o not add to previous draw Result Comment: D-Di elisa values of less than 0.50 ug/ml (FEU) are considered to be a negative predictor of thrombosis. However, the D-Dimer result should be used in conjunction with pretest probability and should not be used alone to diagnose a thrombotic event. Performed By: #### 1 69, 68783 #### [facility] [address] [facility] [place] [address], [facility] HEMOGLOBIN A1Con 03-29-2020 Glucose [Moles/Vol] 111 mmol/L Normal [facility] Comment on above: Order Comment: No: D o not add to previous draw Performed By: #### 3 1791 #### [facility] [address] [place] [address], [facility] HbA1c (Bld) [Mass fraction] 5.5 % Normal 4.0-6.0 [facility] Comment on above: Order Comment: No: D o not add to previous draw Performed By: #### 3 179 #### [facility] [address] MAGNESIUM BLOODon 03-29-2020 Magnesium [Mass/Vol] 2.0 mg/dL Normal 1.9-2.7 The [facility] Comment on above: Order Comment: No: D o not add to previous draw Performed By: #### 1 0070, 08702 #### [facility] [address] [facility] [place] [address], [facility] PROTHROMBIN TIMEon 0 INR Coag (PPP) [Relative time] 1.84 {INR} High 0.91-1.16 The [facility] Comment on above: Order Comment: [...] 1995;108:231S-246S. Performed By: #### 8 [id number] #### [facility] [address] [place] [address], [facility] PT Coag (PPP) [Time] 21.3 s High 12.3-14.8 The [facility] Comment on above: Order Comment: No: D o not add to previous draw Result Comment: ALL RESULTS MUST BE INTERPRETED WITH RESPECT TO BLOOD DRAWING ARTIFACT OR DILUTION ERROR OF ANTICOAGULANT AT THE TIME OF SAMPLING. Performed By: #### 8 [id number] #### [facility] [address] [place] [address], [facility] TROPONIN-Ion 03-29-2020 Troponin I.cardiac [Mass/Vol] 0.00 ng/mL Normal 0.00-0.04 [facility] Comment on above: Order Comment: No: D o not add to previous draw Result Comment: REFE RENCE RANGES: 0.00 - 0.14 ng/ml NEGATIVE 0.15 - 0.25 ng/ml INDETERMINATE > 0.25 ng/ml INDICATIVE OF AN M.I. Performed By: #### 1 0070, 17133 #### [facility] [address] [place] [address], [facility] TSH3on 03-29-2020 TSH 3RD GENERATION 3.72 uIU/mL Normal 0.34-5.60 [facility] Comment on above: Order Comment: No: D o not add to previous draw Performed By: #### 1 0070, 39919 #### [facility] [address] [place], [place] [id number] [place] [address] Vital Signs Date Time Vital Sign Value Performing Clinician Alok bolivar 06-18-2023 09:43-0500 Diastolic blood pressure 101 mm[Hg] Harleen Ly DO Work Phone: [facility] 06-18-2023 09:43-0500 Respiratory rate 16 /min Harleen Ly DO Work Phone: [facility] 06-18-2023 09:43-0500 SaO2% (BldA) [Mass fraction] 97 % Harleen Ly DO Work Phone: [facility] 06-18-2023 09:43-0500 Systolic blood pressure 161 mm[Hg] Harleen Ly DO Work Phone: [facility] 06-18-2023 09:23-0500 Body temperature 97 [degF] Harleen Ly DO Work Phone: [facility] 06-18-2023 07:49-0500 Body height 172.7 cm Harleen Ly DO Work Phone: [facility] 06-18-2023 07:49-0500 Body weight 144.7 kg Harleen Ly DO Work Phone: [facility] 04-29-2023 11:43-0500 Body weight 144.7 kg Harleen Ly DO Work Phone: [facility] 04-29-2023 11:43-0500 Diastolic blood pressure 80 mm[Hg] Harleen Ly DO Work Phone: [facility] 04-29-2023 11:43-0500 Heart rate 78 /min Harleen Ly DO Work Phone: [facility] 04-29-2023 11:43-0500 Systolic blood pressure 140 mm[Hg] Harleen Ly DO Work Phone: [facility] 04-03-2023 07:55-0500 Body height 172.72 cm Kaila Aichholz Work Phone: [facility] 04-03-2023 07:55-0500 Body weight 143.33 kg Kaila Aichholz Work Phone: [facility] Encounters Encounter Date Encounter Type Care Provider Facility Start: 12-22-2023 End: 12-22-2023 ambulatory KAILA AICHHOLZ Not Available Start: 11-17-2023 End: 11-17-2023 [facility] Start: 08-26-2023 End: 08-26-2023 ambulatory KAILA AICHHOLZ Not Available Start: 06-24-2023 Orders Only Kaila Aichholz LINOTYPE OPERATOR Work Phone: [facility] Comment on above: Multiple lung nodule s (Primary Dx) Start: 06-23-2023 Telephone encounter Harleen Ly DO Work Phone: Gastroenterology Comment on above: Results Start: 06-18-2023 ambulatory YANN Haywoodi ty:[facility] Start: 06-18-2023 End: 06-18-2023 Subsequent hospital visit by physician Harleen Jones DO Work Phone: Procedures Comment on above: History of colon marcelo yps [Z86.010] Start: 06-12-2023 End: 06-12-2023 ambulatory UMAIR ENRIQUE [facility] Start: 05-04-2023 End: 05-04-2023 ambulatory KAILA AICHHOLZ Not Available Start: 04-29-2023 End: 04-29-2023 ambulatory HARLEEN LY Facility:[facility] Start: 04-29-2023 End: 04-29-2023 Patient encounter procedure Harleen Ly DO Work Phone: Gastroenterology Comment on above: History of colon marcelo yps (Primary Dx) Start: 04-21-2023 Telephone encounter Carmen Jacob MD Work Phone: Gastroenterology Comment on above: Appointment Start: 04-03-2023 End: 04-03-2023 ambulatory Kaila J Aichholz Facility:[facility] Start: 04-03-2023 End: 04-03-2023 ambulatory Kaila J Aichholz Work Phone: [facility] Work Phone: Start: 04-03-2023 End: 04-03-2023 Patient encounter procedure Kaila Aichholz Work Phone: [facility] Work Phone: Start: 03-13-2023 ambulatory Facility:[facility] Start: 12-03-2022 End: 12-03-2022 ambulatory EDWINA PRETTY [facility] Start: 09-15-2022 End: 09-16-2022 ambulatory LABORATORY CUREMAN KAILA AICHHOLZ Facility:[facility] Start: 05-01-2022 End: 05-01-2022 ambulatory LABORATORY CUREMAN KAILA AICHHOLZ Facility:[facility] Start: 03-13-2022 End: 03-14-2022 ambulatory LABORATORY CUREMAN KAILA AICHHOLZ Facility:[facility] Start: 11-02-2020 End: 11-03-2020 ambulatory KAILA AICHHOLZ Facility:[facility] Start: 07-26-2020 End: 07-27-2020 ambulatory KAILA GOLDSTEIN Facility:[facility] Start: 04-16-2020 End: 04-23-2020 Evaluation and management of inpatient LULU DEE Facility:[facility] Start: 03-29-2020 End: 04-01-2020 Evaluation and management of inpatient YINA MAKI Facility:[facility] Procedures Date Procedure Procedure Detail Performing Clinician Start: 06-18-2023 Colonoscopy flx dx w /collj spec when pfrmd Harleen Ly DO Work Phone: Start: 06-18-2023 Gluc bld gluc mntr d ev cleared fda spec home use Ynan Kuhn MD Work Phone: Start: 06-18-2023 Colonoscopy Harleen Ly DO Work Phone: Start: 04-03-2023 Positron emission tomography with computed tomography Kaila Goldstein Work Phone: Start: 03-18-2023 Mammography Kaila Whalen annabel LINOTYPE OPERATOR Work Phone: Start: 11-02-2020 Colonoscopy w/biopsy single/multiple [...] Screening for malign ant neoplasm of colon [facility] Start: 08-16-2024 Glaucoma screening Diabetes: R etinopathy Screening [facility] Start: 06-18-2024 Screening for malign ant neoplasm of colon [facility] Start: 03-18-2024 Screening for malign ant neoplasm of breast Mammogram [facility] Start: 12-10-2023 Medicare Annual Well ness (AWV) Medicare Annual Wellness (AWV) [facility] Start: 11-15-2023 Influenza vaccination Influenza Vacc ine (#1) [facility] Comment on above: Postponed from 01/16 (Patient Refused) Start: 09-16-2023 Urine screening for protein Diabetes: Urine Protein Screening [facility] Start: 08-17-2023 Pneumococcal Vaccine : 65+ Years (1 - PCV) Pneumococcal Vaccine: 65+ Years (1 - PCV) [facility] Comment on above: Postponed from 09/29 (Other Medical Reasons) Start: 08-04-2023 End: 08-04-2023 Patient encounter procedure 08/04/2023 8:40 AM EDT Office Visit [facility] [address] [place] [address] Kaila Goldstein NP [address] [place] [id number] [facility] Start: 06-24-2023 End: 06-24-2024 CT Chest WO contrast CT chest wo IV contrast Imaging Routine Multiple lung nodules Expected: 06/24/2023 (Approximate), Expires: 06/24/2024 [facility] Work Phone: Comment on above: Expected: 06/24/2023 (Approximate), Expires: 06/24/2024 Start: 05-18-2023 Advance Directive Discussion Advance Directive Discussion [facility] Start: 05-18-2023 Depression Assessment Depression [facility] Start: 01-16-2023 Covid-19 Vaccine ( season) Covid-19 Vaccine ( season) [facility] Start: 01-16-2023 Influenza vaccination Influenza Vacc ine (#1) [facility] Start: 05-18-2022 Advance Directive Discussion Advance Directive Discussion [facility] Start: 05-18-2022 Depression Assessment Depression [facility] Start: 11-02-2021 Screening for malign ant neoplasm of colon [facility] Start: 2021 Bone Density Screening Bone Density Screening [facility] Start: 2021 Pneumococcal Vaccine : 65+ (1 - PCV) Pneumococcal Vaccine: 65+ (1 - PCV) [facility] Start: 2021 Screening for osteoporosis Bone Density Screening [facility] Start: 2016 RSV Vaccine (1 - 1-d ose 60+ series) RSV Vaccine (1 - 1-dose 60+ series) [facility] Start: 2006 Shingrix Vaccine (1 of 2) Shingrix Vaccine (1 of 2) [facility] Start: 2001 Cologuard (FIT-DNA) Cologuard (FIT-D NA) [facility] Start: 2001 Colonoscopy Colonoscopy [facility] Start: 2001 Colorectal Cancer Screening Colorectal Cancer Screening [facility] Start: [address] Colonography [facility] Start: 2001 Diabetes Screening Diabetes Screenin g [facility] Start: 2001 Fecal Occult Blood Fecal Occult Bloo d [facility] Start: 2001 Lipid 1996 panel - S onrma or Plasma Lipid Screening [facility] Start: 2001 Lipid panel Lipid Screening [facility] Start: 2001 Screening for malign ant neoplasm of colon [facility] Start: 2001 Sigmoidoscopy Sigmoidoscopy [facility] Start: 1996 Mammography Mammogram Screening 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 Disease Visit Annual PCP Team Chronic Disease Visit [facility] Start: 1974 BP Controlled (<130/80) BP Controlle d (<130/80) [facility] Start: 1974 Hepatitis C Screening Hepatitis C [facility] Start: 1974 Hepatitis C screening Hepatitis C [facility] Start: 1962 Pneumococcal Vaccine : 65+ (1 of 2 - PCV) Pneumococcal Vaccine: 65+ (1 of 2 - PCV) [facility] Start: 04-01-1957 Covid-19 Vaccine (#1) Covid-19 Vacci ne (#1) [facility] Start: 1956 Hemoglobin A1c measurement Diabetes: Hemoglobin A1C [facility] Start: 1956 Screening for malign ant neoplasm of colon [facility] End: 04-29-2024 Screening colonoscopy COLONOSCOPY SCREENING Endoscopy Routine History of colon polyps 1 Occurrences starting 04/29/2023 until 04/29/2024 [facility] Work Phone: Comment on above: 1 Occurrences starti ng 04/29/2023 until 04/29/2024 SURGICAL PATHOLOGY [facility] Work Phone: Comment on above: Release Upon Orderin g for 1 Occurrences starting 06/18/2023, 1 completed [facility] Immunizations Immunization Date Immunization Notes Care Provider [facility] 11-10-2022 zoster vaccine recombinant Kaila Angelita LINOTYPE OPERATOR Work Phone: [facility] 05-21-2022 zoster vaccine recombinant Kaila Aicterriz LINOTYPE OPERATOR Work Phone: [facility] Payers Date Payer Category Payer Self-pay 2022 Medicare [employer] [place] HMO [id number] 2022-Present [phone] [address] [place] [id number] O [id number] 2022 Unknown [employer] D [employer] [id number] 2022-Present [address] [place] [address] [id number] 2020 Unknown [id number] 1959 Medicare [id number] 1956 Unknown [id number] 1956 Unknown [id number] 1956 Unknown [id number] [id number] 1956 Unknown [id number] [id number] 1956 Unknown [id number] [id number] 1956 Unknown [id number] [id number] 1956 Unknown [id number] [id number] 1956 Unknown [id number] [id number] 1956 Unknown [id number] [id number] 1956 Unknown [id number] [id number] Unknown [id number] Unknown [id number] Social History Date Type Detail Facility Tobacco smoking stat [facility] Unknown if ever smoked [facility] Work Phone: Start: 1955 Sex Assigned At Female F [facility] Tobacco smoking stat [facility] Tobacco smoking consumption unknown [facility] Start: 1955 Sex Assigned At Not on file [facility] Start: 04-29-2023 End: 05-04-2023 Gender identity Not on file [facility] Start: 04-29-2023 End: 05-03-2023 Tobacco smoking status NHIS Ex-smoker [facility] Start: 05-18-1975 End: 05-18-2007 History of tobacco use Current smoker [facility] Start: 05-18-1975 End: 05-18-2007 History of tobacco use Cigarette Smoker [facility] Start: 04-29-2023 End: 05-04-2023 Cigarettes smoked current (pack per day) - Reported 1.5 [facility] Start: 04-29-2023 Tobacco use and exposure Smokeless tobacco non-user [facility] National Score (1-10 0), lower number is lower risk 91 [facility] Start: 05-04-2023 Alcohol intake Ex-drinker (finding) [facility] Start: 05-03-2023 Tobacco Comment Last smoked 10-15 ye ars [facility] Start: 05-03-2023 Alcohol Comment caffeine:soda [facility] Procedure Code Equipment Code Equipment Origin al Text Equipment Identifier Dates Use as instructed [id number] Start: 05-22-2023 End: 05-21-2024 1 each 3 (three) times a day as needed (3 times daily prn) [id number] Start: 05-22-2023 Clinical Notes 04-01-2020 to 11-17-2023 Kaila Goldstein, LINOTYPE OPERATOR - 06/24/2023 10:52 AM ESTTelephone Encounter - Windy Dickson Ma - 06/23/2023 2:34 PM ESTTelephone Encounter - Sara Do RN - 06/23/2023 10:21 AM ESTPatient Instructions Note Date & Type Note Facility 11-17-2023 Note Cardiology Follow Up Progress Note Chief Complaint: clinic follow up HPI: Hortensia Bates is a 66 y.o. female who is followed in cardiology clinic for hypertension, hyperlipidemia, and atrial fibrillation status post ablation. She presents today for follow-up. Patient here for 6 mo follow up hypertension, hyperlipidemia, and persistent afib. Had routine labs w/ lipid panel in August 2023. She is doing very well. Denies chest pain, SOB, palpitations, and lightheadedness/syncope. Denies bleeding on Eliquis. Patient denies any lower extremity edema, orthopnea, or proximal nocturnal dyspnea. No near-syncope or syncope. No dizziness or lightheadedness. Bp is above target range. Patient does not check her Bp at home Cardiology ROS: GENERAL: Denies fever, chills, night sweats, weight loss. HEENT: Denies changes in vision, photophobia, changes in hearing, epistaxis, oral bleeding. CARDIOVASCULAR: Denies chest pain, exertional dyspnea, orthopnea/PND, lower extremity edema, palpitations, lightheadedness/dizziness. RESPIRATORY: Denies SOB, coughing, wheezing GI: Denies abdominal pain, nausea/vomiting, heartburn, melena/hematochezia. RENAL: Denies dysuria, hematuria, flank pain. MSK: Denies muscle weakness/pain, arthralgias/joint pain. NEUROLOGIC: Denies LOC, weakness, numbness, headaches. SKIN: Denies abnormal rashes or bleeding. PSYCH: Denies significant anxiety, depression, sleep disturbances. Medications Current Outpatient Medications on File Prior to Visit Medication Sig Dispense Refill allopurinol (Zyloprim) 100 mg tablet allopurinol 100 mg tablet TAKE 1 TABLET BY MOUTH EVERY DAY apixaban (Eliquis) 5 mg tablet Take 5 mg by mouth in the morning and at bedtime. atorvastatin (Lipitor) 10 mg tablet atorvastatin 10 mg tablet TAKE 1 TABLET BY MOUTH EVERY DAY IN THE EVENING levothyroxine (Synthroid, Levoxyl) 100 mcg tablet levothyroxine [...] TAKE 1 TABLET BY MOUTH EVERY DAY No current facility-administered medications on file prior to visit. Allergies Thiazides Physical Exam VITAL SIGNS: BP 142/81 (BP Location: Left wrist, Patient Position: Sitting) Pulse 84 Ht (P) 1.727 m (5' 8 ) Wt (!) 144 kg (318 lb) SpO2 96% BMI (P) 48.35 kg/m??? Constitutional: Well developed, Well nourished, No acute distress, Non-toxic appearance. HENT: Normocephalic, Atraumatic, Bilateral external ears have normal appearance, Bilateral TMs clear, Oropharynx moist, No oral or pharyngeal exudates, Nose appears normal, nares are patent. Eyes: PERRLA, EOMI, Conjunctiva normal, No discharge. Neck: Normal range of motion, No tenderness, Supple, No stridor. No cervical lymphadenopathy noted. Cardiovascular: Normal heart rate, Normal rhythm, No murmurs, No rubs, No gallops. Thorax & Lungs: Normal breath sounds, No respiratory distress, No wheezing, No chest tenderness to palpation. Abdomen: Bowel sounds normal, Soft, Nontender, No masses, No pulsatile masses. Skin: Warm, Dry, No erythema, No rash. Back: No tenderness, No CVA tenderness. Extremities: Intact distal pulses, No edema, No tenderness, No cyanosis, No clubbing. Musculoskeletal: Good range of motion in all major joints with 5/5 muscle strength in all muscle groups, No tenderness to palpation or major deformities noted. Neurologic: Alert & oriented x 3, Normal motor function in all major muscle groups, Normal sensory function to all major dermatomes, No focal deficits noted. Psychiatric: Affect normal, Judgment normal, Mood normal. Impression: -Afib s/p ablation, on metoprolol and eliquis. No palpitations. -HTN: Bp suboptimally controlled -Hyperlipidemia: on Atrovastatin, LDL within target range Plan: -Poorly controlled blood pressure, will change metoprolol succinate to carvedilol. Patient is to stop Toprol today and to start carvedilol 6.25 mg twice daily tomorrow. Patient instructed to check daily blood pressure at home 2 hours after taking medication. Patient is instructed to maintain daily blood pressure log. Patient is to contact cardiology if blood pressures above discuss target range. Patient voices understanding. -Continue carvedilol and Eliquis for atrial fibrillation. No bleeding per patient. -Continue atorvastatin 10 mg daily for hyperlipidemia. LDL within target range -Optimize medical management -Aggressive risk factor modification -Plan of care discussed with patient. All questions were answered. Patient voices understanding and is agreeable with current plan. -Patient was educated on red flag symptoms. Strict return precautions were provided. Patient v (more content not included)... [facility] 06-24-2023 History of Presen t illness Narrative Due for fu CT chest 3 month for lung nodules documented in this encounter [facility] 06-23-2023 Miscellaneous Notes Recall entered Left [...] yrs. Thanks cl documented in this encounter [facility] 06-18-2023 History and physical note HISTORY [...] Harleen Jones DO documented in this encounter [facility] 06-12-2023 Note Continue statin- lip itor 10 mg daily [facility] 06-12-2023 Note Hypertension is stab le b/p 136/83 continue losartan, aldactone, and toprl [facility] 06-12-2023 Note RCRI 0???points Class I Risk 3.9???% 30-day risk of , [place], or cardiac arrest From a cardiac perspective pt may proceed with colonoscopy, she is a low risk for a low risk procedure. She may hold elquis for 2-3 days prior and resume post op, with the knowledge that there is a risk for stroke with holding anticoagulation. Please monitor hemodynamics carefully and prevent any major fluid shifts. [facility] 06-12-2023 Note Patient here for 6 m o follow up persistent afib, hypertension, and hyperlipidemia. She denies chest pain, SOB, lightheadedness/syncope, palpitations, and bleeding on Eliquis. She is scheduled for colonoscopy on 06/18 with [facility] and needs permission to hold Eliquis. Review of Systems Cardiovascular: Positive for leg swelling (minimal, resolves by morning). All other systems reviewed and are negative. [facility] 06-12-2023 Note UTP CARDIOLOGY PROGR ESS [...] are negative Previous HPI per S Witherall LINOTYPE OPERATOR HPI Hortensia Bates is a 66 y.o. [...] normal LA f (more content not included)... [facility] 06-12-2023 Note [id number] VASc= 4 Continue anticoagulation with eliquis- will need to hold 2-3 days for colonoscopy Monitor for s/s of bleeding Continue toprol, rate controlled and remains in NSR [facility] 04-29-2023 Note HNO ID: [id number] Author: Harleen Jones DO Service: ? Author Type: Physician Type: Progress Notes Filed: 04/29/2023 12:49 PM Note Text: Chief Compliant: Consultation requested by Dr. Kaila Goldstein, DURABLE MEDICAL EQUIPMENT REPAIRER.LABORATORY CUREMAN for an opinion regarding hx of colon [...] other GI malignancy. No records available in [facility] or [facility] regarding this office visit. ALLERGIES Allergen Reactions [...] from her prior colonoscopy -schedule colonoscopy at [place]. 2 day bowel p (more content not included)... [facility] 04-29-2023 History of Presen t illness Narrative Chief Compliant: Consultation requested by Dr. Kaila Goldstein, DURABLE MEDICAL EQUIPMENT REPAIRER.LABORATORY CUREMAN for an opinion regarding hx of colon [...] other GI malignancy. No records available in [facility] or [facility] regarding this office visit. ALLERGIES Allergen Reactions [...] from her prior colonoscopy -schedule colonoscopy at [place]. 2 day bowel prep. Procedure/risks were discussed with the patient in great detail including but not limited to the risk of sedation, bleeding, perforation, infection, and missed lesions. Patient agreed to proceed. -fiber rich diet Harleen Jones DO Follow Up: No follow-ups on file. documented in this encounter [facility] 04-29-2023 Instructions Harleen Jones DO - [...] If you do not have a responsible class c truck driver (family member or friend) with you to take you home, your exam cannot be done with sedation and will be cancelled. Please bring a list of all of your current medications, including any Rtfc-yfp-Hzahnkb medications with you. Medications If you take [...] exam. 2 04/2019 documented in this encounter [facility] 04-21-2023 Miscellaneous Notes Pt's VM is full and there is no active [facility] Cannot inform pt 05/28 appt w/Kristel was canceled If pt calls back an attempt was made to contact her Frandy Preeti 04/21/23 documented in this encounter [facility] 12-03-2022 Note Cardiology Clinic No te [...] Left Atrium appen (more content not included)... [facility] 04-23-2020 Note MR#: [id number] I [facility] Pt. Name: Hortensia Bates Admitted: 04/15/2020 [...] to the patient being on anticoagulation and hvhlbglh-vx-ypbgfy sigmoid diverticulosis. Subsequently, pathology report came back [...] snare measured 3 mm and 5 mm. Xcrokurc-ir-dfufph sigmoid diverticulosis. Again, the patient was admitted [...] P/Misael Negro MD Date Trans: 04/23/2020 02:52 P/mmdavid [id number] [facility] 04-01-2020 Note MR#: [id number] I [facility] Pt. Name: Hortensia Bates Admitted: 03/29/2020 [...] P/Kelsey Gonzalez MD Date Trans: 04/01/2020 12:25 P/jorgeo [id number] [facility] Evaluation note No assessment inform ation available [facility] Work Phone: Evaluation note Diagnosis History of colon polyps- Primary Personal history of colonic polyps documented [facility] Diagnosis Chronic atrial fibrillation (HCC)- Primary Atrial fibrillation History of colon polyps Personal history of colonic polyps Primary hypertension Unspecified essential hypertension Class 3 obesity (HCC) [facility] Diagnosis Multiple lung nodules- Primary Other diseases of lung, not elsewhere classified [facility] Outpatient Procedure (Routine) - Pending Review Specialty Diagnoses / Procedures Referred By Masoud simms Referred To Contact [facility] Diagnoses History of colon polyps Procedures COLONOSCOPY SCREENING COLONOSCOPY FLX DX W/COLLJ [place] [address] [place] [address] [facility] [address] [place] [address] Referral ID Status Reason Start Date Expiration Date Visits Requested Visits Authorized [id number] Pending Review Auto-Generat ed Referral 3 04/29/2024 1 1 [facility] for referral (narrative)* Outpatient Procedure (Routine) - Closed Specialty Diagnoses / Procedures Referred By Masoud simms Referred To Contact [facility] Diagnoses History of colon polyps Procedures COLONOSCOPY SCREENING COLONOSCOPY FLX DX W/COLLJ [place] [address] [place] [address] [address] Referral ID Status Reason Start Date Expiration Date V isits Requested Visits Authorized [id number] Closed Auto-Generate d Referral 06/05/2023 05/17/2024 1 1 [facility] for visit Narrative* Outpatient Procedure (Routine) - Closed Specialty Diagnoses / Procedures Referred By Masoud simms Referred To Contact [facility] Diagnoses History of colon polyps Procedures COLONOSCOPY SCREENING COLONOSCOPY FLX DX W/[place] [address] [place] [address] [address] Referral ID Status Reason Start Date Expiration Date V isits Requested Visits Authorized [id number] Closed Auto-Generate d Referral 06/05/2023 05/17/2024 1 1 [facility] Summary Purpose Family History No Family [...] IV contrast Kaila Goldstein, ANA [address] [place] [address] Referral ID Status Reason Start Date Expiration Date V isits Requested Visits Authorized [id number] Authorized 06/24/2023 12/21/2023 1 1 Additional Source Comments INFORMATION SOURCE (unrecogn ized section and content) DATE CREATED AUTHOR 11/07/2020 [facility] DATE CREATED AUTHOR AUTHOR'S ORGANIZ ATION 09/19/2022 [facility] DATE CREATED AUTHOR AUTHOR'S ORGANIZ ATION 03/15/2023 [facility] DATE CREATED AUTHOR AUTHOR'S ORGANIZ ATION 04/11/2023 [facility] DATE CREATED AUTHOR AUTHOR'S ORGANIZ ATION 06/22/2023 [facility] DATE CREATED AUTHOR AUTHOR'S ORGANIZ ATION 06/24/2023 [facility] DATE CREATED AUTHOR AUTHOR'S ORGANIZ ATION 11/20/2023 [facility] DATE CREATED AUTHOR AUTHOR'S ORGANIZ ATION 12/24/2023 [facility] dical Specialists EPIC Care Teams (unrecognized sec tion and content) Team Status: Active Member Role Status Dates Kaila Goldstein Primary Care Provider Active Team Status: Inactive Member Role Status Dates Kaila Goldstein Primary Care Provider, Attending Provi abhishek Active Core Driller Helper Relationship Specialty Start Date End Date Kaila Goldstein LABORATORY CUREMAN [address] [place] [address] PCP - General Family Medicine 03/24/23 Core Driller Helper Relationship Specialty Start Date End Date Kaila Goldstein CNP [address] [place] [address] PCP - General Family Medicine 03/24/23 Core Driller Helper Relationship Specialty Start Date End Date Kaila Goldstein CNP [address] [place] [address] PCP - General Family Medicine 03/24/23 Core Driller Helper Relationship Specialty Start Date End Date Kaila Goldstein CNP [address] [place] [address] PCP - General Family Medicine 03/24/23 Core Driller Helper Relationship Specialty Start Date End Date Quinn Antunez MD PCP - General Family Medicine 12/08/22 Quinn Antunez MD [address] [place] [id number] PCP - Devoted 02/15/23 Kaila Goldstein NP [address] [place] [id number] Referring Physician Nurse Practitioner 12/08/22 Goals (unrecognized [...] or prosecute any alcohol or drug abuse patient.[facility] the event this information is protected by the Federal Confidentiality of Alcohol and Drug Abuse Patient Records regulations: The Federal rules restrict any use of the information to criminally investigate or prosecute any alcohol or drug abuse patient.[facility] the event this information is protected by the Federal Confidentiality of Alcohol and Drug Abuse Patient Records regulations: The Federal rules restrict any use of the information to criminally investigate or prosecute any alcohol or drug abuse patient.[facility] the event this information is protected by the Federal Confidentiality of Alcohol and Drug Abuse Patient Records regulations: The Federal rules restrict any use of the information to criminally investigate or prosecute any alcohol or drug abuse patient.[facility] Reason for Visit (unrecogniz ed section [...] BE BASED ON THE PRIMARY CLINICAL RECORDS. [facility]. provides no warranty or guarantee of the accuracy or completeness of information in this document.
[2023-12-24 11:57] LABS: Bilirubin Urine NEGATIVE (NEGATIVE); Blood Urine NEGATIVE (NEGATIVE); Clarity Urine CLEAR (CLEAR); Color Urine LT. YELLOW (YELLOW); Glucose Urine UA NEGATIVE (NEGATIVE); Ketones Urine NEGATIVE (NEGATIVE); Leukocyte Esterase Urine TRACE (NEGATIVE); Nitrite Urine NEGATIVE (NEGATIVE); Protein Urine NEGATIVE (NEG/TRACE); Urobilinogen Urine 0.2 EU/dL (0.2-1.0)
[2023-12-24 12:00] LABS: Urine Microscopic Indicated YES
[2023-12-24 12:20] LABS: Bacteria Urine SMALL #/HPF (NONE SEEN); Cast Seen? NONE SEEN #/LPF (NONE SEEN); Crystals Seen? None Seen #/HPF (None Seen); Mucus Urine NONE SEEN (NONE SEEN); RBC Urine 0-2 #/HPF (0-2); Squamous Epithelial Cell Urine FEW #/LPF (NONE/RARE)
[2023-12-24 12:32] LABS: Estimated Average Glucose 123 mg/dL; Glycohemoglobin A1C 5.9 % (4.5-6.2)
== END 2023-12-24 11:02 | disposition home or self-care (01) ==
LOC: LAB 11:03
PROVIDERS: PCP Nurse Practitioner; Visit Provider Nurse Practitioner
DX: R31.21 Asymptomatic microscopic hematuria (principal); E11.9 Type 2 diabetes mellitus without complications
CPT/HCPCS: 36415; 81001; 83036; 87086; 87150; 87186

== ENCOUNTER 2024-10-17 07:09 | Outpatient (OUT) | payer MEDICARE, SELFPAY ==
--- OUTSIDE RECORDS SUMMARY | 2024-10-17 07:15 | XMS_ITS | CCD ---
Author Organization [facility] ion [facility] Care Team Providers Care Vocational Nursing Instructor Name Role Phone AICHHOLZ, KAILA Referring Unavailable AICHHOLZ, KAILA Primary Care Unavailable OK Procedure Practitioner Unavailab le ALASTAL, YASEEN Admitting Unavailable ALASTAL, YASEEN Attending Unavailable ALASTAL, YASEEN Surgeon Unavailable AICHHOLZ, KAILA Primary Care Unavailable AICHHOLZ, KAILA Referring Unavailable SULEIMAN SALAMANCA Admitting Unavailable SULEIMAN SALAMANCA Attending Unavailable SHANTHI, SARMED Admitting Unavailable SHANTHI, SARMED Attending Unavailable CHAY ARANGO Surgeon Unavailable AICHHOLZ, KAILA Primary Care Unavailable OK Procedure Practitioner Unavailab JUAN Souza Referring Unavailable SHANTHI, SARMED Surgeon Unavailable OK Procedure Practitioner Unavailab LULU Irizarry Referring Unavailable SHANTHI, SARMED Admitting Unavailable AICHHOLZ, KAILA Primary Care Unavailable MISAEL MCCOLLUM Attending Unavailable OK Procedure Practitioner Unavailab vi CROCKERSTISAC, YASEEN Surgeon Unavailable AICHHOLZ, SENIOR NETWORK ENGINEER KAILA Attending Unavailable AICHHOLZ, SENIOR NETWORK ENGINEER KAILA Consulting Unavailable AICHHOLZ, SENIOR NETWORK ENGINEER KAILA Primary Care Unavailable AICHHOLZ, SENIOR NETWORK ENGINEER KAILA Admitting Unavailable AICHHOLZ, SENIOR NETWORK ENGINEER KAILA Attending Unavailable AICHHOLZ, SENIOR NETWORK ENGINEER KAILA Consulting Unavailable AICHHOLZ, SENIOR NETWORK ENGINEER KAILA Primary Care Unavailable AICHHOLZ, SENIOR NETWORK ENGINEER KAILA Admitting Unavailable AICHHOLZ, SENIOR NETWORK ENGINEER KAILA Attending Unavailable AICHHOLZ, SENIOR NETWORK ENGINEER KAILA Consulting Unavailable AICHHOLZ, SENIOR NETWORK ENGINEER KAILA Primary Care Unavailable AICHHOLZ, SENIOR NETWORK ENGINEER KAILA Admitting Unavailable Angelita, Kaila J Primary Care Provider Kaila Goldstein Attending Provider [phone] Kaila Goldstein Attending Unavailable Kaila Goldstein Primary Care Unavailable Kaila Goldstein Admitting Unavailable Angelita STAFFORD, aKila Robert Primary Care Provider [phone] YANN KUNH Attending Unavailable KAILA GOLDSTEIN Primary Care Unavailable HARLEEN MACDONALD Referring Unavailable HARLEEN MACDONALD Attending Unavailable KAILA GOLDSTEIN Primary Care Unavailable Quinn Antunez MD Primary Care Provider Angelita INVENTORY TAKER, Kaila Unavailable Tulio GAONA, Quinn Unavailable KAILA GOLDSTEIN Attending Unavailable KAILA GOLDSTEIN Attending Unavailable ANGELITA, KAILA Attending Unavailable Aichholz INVENTORY TAKER, Kaila Unavailable Tulio GAONA, Quinn Unavailable Quinn Atnunez MD Primary Care Provider Angelita INVENTORY TAKER, Kaila Unavailable Tulio GAONA, Quinn Unavailable MADDIE CALVO Attending Unavailable VERONIKA DUMONT Attending Unavailable Allergies Allergy Classification Reported Allergen(s) Allergy Type Date of Onset Reaction(s) Facility Unclassified (4 sources) Thiazides; Translations: [THIAZIDES] Drug allergy (disorder) 01-05-[address] [facility] Repository (4 sources) Spironolactone; Translations: [SPIRONOLACTONE] Drug Allergy 04-29-20 23 [facility] (3 sources) Thiazides Drug Allergy 05-06-20 22 [facility] (8 sources) fexofenadine Drug Allergy 05-06-20 22 [facility] (8 sources) hydroCHLOROthiazide Drug Allergy 05-04-20 23 [facility] (8 sources) Spironolactone Drug Allergy 05-01-20 23 [facility] (8 sources) Thiazide-Type Diuretics Drug Allergy 05-04-20 23 [facility] Medications Current Medications Medication Drug Class(es) Dates Sig (Normalized) Sig (Original) allopurinol 100 mg oral tablet (11 sources) Xanthine Oxidase Inhibitor Start: 07-11-2024 End: 10-09-2024 take 1 tablet by mouth once daily allopurinol (Zyloprim) 100 MG tablet Indications: Gout, unspecified Take 1 tablet (100 mg) by mouth Daily 90 tablet 07/11/2024 10/09/2024 Active Start: 10-31-2023 End: 04-18-2024 take 1 tablet by mouth once daily allopurinol (Zyloprim) 100 MG tablet Indications: Gout, unspecified Take 1 tablet (100 mg) by mouth Daily 90 tablet 1 01/19/2024 04/18/2024 Active take 1 tablet by madhu th in the morning allopurinol (Zyloprim) 100 MG tablet Take 100 mg by mouth in the morning. 0 Active Comment on above: Allopurinol amoxicillin 875 mg / clavulanate 125 mg oral tablet (1 source) Penicillin-class Antibacterial Start: 12-29-19 End: 01-08-20 take 1 tablet by mouth in the morning amoxicillin-clavulana te (Augmentin) 875-125 MG tablet Indications: Acute cystitis without hematuria Take 1 tablet (875 mg) by mouth in the morning and 1 tablet (875 mg) before bedtime. Do all this for 10 days. Take with food. 20 tablet 12/29/2023 01/08/2024 Active apixaban 5 mg oral tablet (11 sources) Factor Xa Inhibitor take 1 tablet by mouth in the morning apixaban (Eliquis) 5 MG tablet Take 5 mg by mouth in the morning and 5 mg before bedtime. Active Comment on above: Take 5 mg by mouth t wo times a day. atorvastatin 10 mg oral tablet (12 sources) HMG-CoA Reductase Inhibitor Start: 01-19-20 End: 05-31-19 take 1 tablet by mouth in the evening atorvastatin (Lipitor) 10 MG tablet Indications: Mixed hyperlipidemia (CMS/HCC) Take 1 tablet (10 mg) by mouth in the evening 90 tablet 1 03/02/2024 Active Start: 09-15-2023 take 1 tablet by madhu th in the evening atorvastatin (Lipitor) 10 MG tablet Indications: Mixed hyperlipidemia (CMS/HCC) Take 1 tablet (10 mg) by mouth in the evening 90 tablet 1 09/15/2023 Active take 1 tablet by madhu th in the morning atorvastatin (Lipitor) 10 MG tablet Take 10 mg by mouth in the morning. 0 Active Comment on above: Atorvastatin Calcium Blood Glucose Monitoring Suppl (Blood Glucose Monitor System) w/Device kit (8 sources) Start: 05-22-2023 Blood Glucose Monitoring Suppl (Blood Glucose Monitor System) w/Device kit Indications: Type 2 diabetes mellitus without complication, without long-term current use of insulin (CMS/[facility]) 1 kit 3 (three) times a day as needed (3 times daily prn) 1 kit 05/22/2023 Active Start: 05-22-2023 Blood Glucose Monitoring Suppl (Blood Glucose Monitor System) w/Device kit Indications: Type 2 diabetes mellitus without complication, without long-term current use of insulin (CMS/HCC) 1 kit 3 (three) times a day as needed (3 times daily prn) 1 kit 0 05/22/2023 Active calcium carbonate 1500 mg oral tablet (8 sources) take 1 tablet by mouth in the morning calcium carbonate (Calcium 600) 1500 (600 Ca) MG tablet Take 1,500 mg by mouth in the morning and 1,500 mg in the evening. Take with meals. Active carvedilol 6.25 mg oral tablet (7 sources) alpha-Adrenergic Gabriella, beta-Adrenergic Gabriella Start: 11-17-19 End: 11-17-19 25 take 1 tablet by mouth in the morning carvedilol (Coreg) 6.25 MG tablet Take 6.25 mg by mouth in the morning and 6.25 mg in the evening. Take with meals. 11/17/2023 11/16/2024 Active ciprofloxacin 500 mg oral tablet (1 source) Quinolone Antimicrobial Start: 01-06-20 24 End: 01-16-20 24 take 1 tablet by mouth in the morning ciprofloxacin (Cipro) 500 MG tablet Indications: Acute cystitis without hematuria Take 1 tablet (500 mg) by mouth in the morning and 1 tablet (500 mg) before bedtime. Do all this for 10 days. 20 tablet 01/06/2024 01/16/2024 Active isopropyl alcohol 0.7 ml/ml medicated pad (8 sources) Alcohol Swabs pa ds Active levothyroxine sodium 0.1 mg oral tablet (11 sources) l-Thyroxine Start: 01-19-20 End: 10-10-19 25 take 1 tablet by mouth before mealtime levothyroxine (Synthroid, Levoxyl) 100 MCG tablet Indications: Hypothyroidism, unspecified type (CMS/HCC) Take 1 tablet (100 mcg) by mouth in the morning. Take before meals. 90 tablet 07/11/2024 10/09/2024 Active Start: 07-27-2023 take 1 tablet by madhu th before mealtime levothyroxine (Synthroid, Levoxyl) 100 MCG tablet Indications: Hypothyroidism, unspecified type (CMS/HCC) Take 1 tablet (100 mcg) by mouth in the morning. Take before meals. 90 tablet 1 07/27/2023 Active take 1 tablet by madhu th before mealtime levothyroxine (Synthroid, Levoxyl) 100 MCG tablet Take 100 mcg by mouth in the morning. Take before meals. 0 Active Comment on above: Levothyroxine Sodium losartan potassium 50 mg oral tablet (12 sources) Angiotensin 2 Receptor Gabriella Start: 4 End: 4 take 1 tablet by mouth once daily losartan (Cozaar) 50 MG tablet Indications: Primary hypertension (CMS/HCC) Take 1 tablet (50 mg) by mouth Daily 90 tablet 1 02/12/2024 Active Start: 08-27-2023 take 1 tablet by madhu th once daily losartan (Cozaar) 50 MG tablet Indications: Primary hypertension (CMS/HCC) Take 1 tablet (50 mg) by mouth Daily 90 tablet 1 08/27/2023 Active take 1 tablet by madhu th in the morning losartan (Cozaar) 50 MG tablet Take 50 mg by mouth in the morning. 0 Active Comment on above: Losartan Potassium metFORMIN hydrochloride 500 mg oral tablet (11 sources) Biguanide Start: 4 End: 5 take 1 tablet by mouth at mealtime metFORMIN (Glucophage) 500 MG tablet Indications: Type 2 diabetes mellitus without complication, without long-term current use of insulin (CMS/HCC) Take 1 tablet (500 mg) by mouth in the morning. Take with meals. 90 tablet 07/11/2024 10/09/2024 Active Start: 08-10-2023 take 1 tablet by madhu th at mealtime metFORMIN (Glucophage) 500 MG tablet Indications: Type 2 Diabetes Mellitus Take 1 tablet (500 mg) by mouth in the morning. Take with meals. 90 tablet 1 08/10/2023 Active take 1 tablet by madhu th at mealtime metFORMIN (Glucophage) 500 MG tablet [...] Succinate Multiple Vitamins-Minerals (CENTRUM SILVER 50+MEN PO) (8 sources) Multiple Vitamins-Minerals (CENTRUM SILVER 50+MEN PO) Take by mouth Active Multiple Vitamin s-Minerals (CENTRUM SILVER 50+MEN PO) Take by mouth 0 Active polymyxin b 99402 unt/ml / trimethoprim 1 mg/ml ophthalmic solution (1 source) Dihydrofolate Reductase Inhibitor Antibacterial, Polymyxin-class Antibacterial Start: 04-08-2024 End: 04-18-2024 take 1 drop(s) into the eye(s) every four hours trimethoprim-polymyxin b (Polytrim) ophthalmic solution Indications: Acute bacterial conjunctivitis, unspecified laterality Administer 1 drop into affected eye(s) every 4 (four) hours for 10 days 10 mL 04/08/2024 04/18/2024 Active spironolactone 25 mg oral tablet (7 sources) Aldosterone Antagonist take 1 tablet by mouth in the morning spironolactone (Aldactone) 25 MG tablet Take 25 mg by mouth in the morning. Active Completed/Discontinued Medications Medication Drug Class(es) Dates Sig (Normalized) Sig (Original) Calcium Carbonate / vitamin D3 (3 sources) calcium carbonate/vitamin D3 (CALCIUM 500 + D ORAL) Take by mouth. 0 Active Comment on above: Take by mouth. multivit-minerals/fo lic acid (CENTRUM ADULTS ORAL) (3 sources) multivit-mineral s/ folic acid (CENTRUM ADULTS ORAL) Centrum 0 Active Comment on above: Centrum polyethylene glycol 3350 027669 mg / potassium chloride 2970 mg / sodium bicarbonate 6740 mg / sodium chloride 5860 mg / sodium sulfate 56230 mg powder for oral solution (1 source) Osmotic Laxative Start: 04-29-2023 End: 04-29-2023 peg 3350-Electrolytes (GOLYTELY) 236-22.74-6.74 -5.86 gram suspension Take 4,000 mL by mouth one time only for 1 dose. 1 Each 0 04/29/2023 04/29/2023 Comment on above: Take 4,000 mL by madhu th one time only for 1 dose. Problems Active Problems Problem Classification Problem Date Documented Date Episodic/Chronic Anxiety disorders (8 sources) Panic attack; Translations: [Panic disorder [episodic paroxysmal anxiety]] Onset: 05-01-2023 05-01-2023 Chronic Cardiac dysrhythmias (19 sources) Chronic atrial fibrillation; Translations: [Chronic atrial fibrillation, unspecified] Onset: 05-01-2023 06-18-2023 Chronic Diabetes mellitus without complication (16 sources) Type 2 diabetes mellitus without complications; Translations: [Type 2 diabetes mellitus] Onset: 03-13-2022 Chronic Disorders of lipid metabolism (11 sources) Hyperlipidemia; Translations: [Hyperlipidemia, unspecified] Onset: 06-18-2023 06-18-2023 Chronic Essential hypertension (15 sources) Essential (primary) hypertension; Translations: [Essential hypertension] Onset: 09-18-2022 06-18-2023 Chronic Gout and other crystal arthropathies (11 sources) Gout, unspecified; Translations: [Gout] Onset: 03-16-2022 05-01-2023 Chronic Osteoarthritis (7 sources) 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; Translations: [Primary osteoarthritis, right ankle and foot] Onset: 06-12-2023 08-26-2023 Chronic Other and unspecified benign neoplasm (2 [...] endocrine; and metabolic disorders (1 source) Morbid (severe) obesity due to excess calories; Translations: [Class 3 obesity (HCC)] Onset: 06-18-2023 Chronic Other nutritional; endocrine; and metabolic disorders (8 sources) Morbid obesity; Translations: [Morbid (severe) obesity due to excess calories] Onset: 05-04-2023 05-04-2023 Chronic Other nutritional; endocrine; and metabolic disorders (7 sources) Obesity caused by energy imbalance; Translations: [Morbid (severe) obesity due to excess calories] Onset: 06-18-2023 12-22-2023 Chronic Other nutritional; endocrine; and metabolic disorders (7 sources) Body mass index 40+ - severely obese; Translations: [Body mass index (BMI) 45.0-49.9, adult] Onset: 12-22-2023 12-22-2023 Chronic Residual codes; unclassified (8 sources) Obstructive sleep apnea syndrome; Translations: [Obstructive sleep apnea (adult) (pediatric)] Onset: 05-01-2023 05-01-2023 Chronic Thyroid disorders (14 sources) Hypothyroidism, unspecified; Translations: [Hypothyroidism] Onset: 09-15-2022 Chronic Unclassified (1 source) Chronic atrial fibrillation, unspecified; Translations: [Chronic atrial fibrillation (HCC)] Onset: 06-18-2023 Viral infection (1 source) COVID-19; Translations: [COVID-19] Onset: 05-04-2022 Past or Other Problems Problem Classification Problem Date Documented Da te Episodic/Chronic Fever of unknown origin (4 sources) Fever, unspecified; Translations: [FEVER UNSPECIFIED] Onset: 05-01-2022 Episodic Genitourinary symptoms and ill-defined conditions (7 sources) Asymptomatic microscopic hematuria; Translations: [Asymptomatic microscopic hematuria] Onset: 08-19-2023 08-19-2023 Episodic Inflammation; infection of eye (except that caused by tuberculosis or sexually transmitteddisease) (4 sources) Acute infectious conjunctivitis; Translations: [Unspecified acute conjunctivitis, unspecified eye] Onset: 04-08-2024 04-08-2024 Episodic Malaise and fatigue (1 source) Other malaise; Translations: [OTHER MALAISE] Onset: 05-04-2022 Episodic Mood disorders (7 sources) Mood disorders Onset: 12-22-2023 12-22-2023 Other connective tissue disease (8 sources) Chronic pain of right foot; Translations: [Pain in right foot] Onset: 05-01-2023 05-01-2023 Episodic Other lower respiratory disease (9 sources) Multiple nodules of lung; Translations: [Other nonspecific abnormal finding of lung field] Onset: 05-01-2023 06-24-2023 Episodic Other non-traumatic joint disorders (8 sources) Joint pain; Translations: [Pain in unspecified joint] Onset: 05-01-2023 05-01-2023 Episodic Other screening for suspected conditions (not mental disorders or infectious disease) (8 sources) Mammography abnormal; Translations: [Other abnormal and inconclusive findings on diagnostic imaging of breast] Onset: 05-01-2023 05-01-2023 Episodic Screening and history of mental health and substance abuse codes (8 sources) Tobacco use and exposure - finding; Translations: [Personal history of nicotine dependence] Onset: 05-01-2023 05-01-2023 Episodic Urinary tract infections (8 sources) Acute cystitis; Translations: [Acute cystitis without hematuria] Onset: 12-29-2023 12-29-2023 Episodic Results Test Name Value Interpretation Reference Range Facility 36on 08-03-2024 36 Great, thanks! [facility] 36on 07-31-2024 36 Has she been able to increase rosuvastatin to daily? [facility] 36on 06-28-2024 36 We can try her on rosuvastatin. Start at 5mg every other day then increase to daily if she is tolerating okay. Follow-up with her again in 1 month to see how she's tolerating the rosuvastatin. Thank you! [facility] Office Visiton 05-24-2024 Follow-up visit [id number] Hortensia Bates 1955 F Date Provider Department Center 05/24/2024 Sheron-MADDIE CALVO Family History Problem Relation Age of Onset No Known Problems Mother No Known Problems Father Family Status - Relation Status Age at Mother Father Level of Service:92890 [place] OFFICE/OUTPATIENT ESTABLISHED LOW MDM 20 MIN Reason for Visit and Comments: Atrial Fibrillation [80] Hypertension [203502] Hyperlipidemia [182] [facility] Telephoneon 05-24-2024 Telephone [id number] Hortensia Bates 1955 Date Provider Department Center 05/24/2024 JOSEFA MONTGOMERY Family History Problem Relation Age of Onset No Known Problems Mother No Known Problems Father Family Status - Relation Status Age at Mother Father [facility] Office Visiton 11-17-2023 Follow-up visit [id number] Hortensia Bates 1955 Date Provider Department Center 11/17/2023 Padma8-VERONIKA DUMONT Family History Problem Relation Age of Onset No Known Problems Mother No Known Problems Father Family Status - Relation Status Age at Mother Father Level of Service:89639 [place] OFFICE/OUTPATIENT ESTABLISHED MOD MDM [address] [facility] Orders Onlyon 11-17-2023 Orders Only [id number] Hortensia Bates 1955 Provider Department [place] 11/17/2023 JOSEFA MONTGOMERY Family History Problem Relation Age of Onset No Known Problems Mother No Known Problems Father Family Status - Relation Status Age at Mother Father [facility] CNPNon 06-23-2023 FAROOQ Telephone (YE) HORTENSIA BATES ([id number]) 1955 F Date Time Provider Department 06/23/23 [...] polyp-not concerning. Repeat in 3 yrs. Thanks Sara Lakhani RN 06/23/2023 10:22 AM Signed Left voice [...] Status:Closed by WINDY CABA MA on 06/23/23 [facility] ANES POSTPROC EVALon 024 ANES POSTPROC EVAL HNO ID: [id number] Author: YANN KUHN MD Service: Anesthesiology Author Type: Physician Type: Anesthesia Postprocedure Evaluation Filed: 06/18/2023 09:58 Note Text: POST ANESTHESIA EVALUATION NOTE : 1955 Procedure Summary Date: 06/18/23 Room / Location: Procedures Anesthesia Start: 848 Anesthesia Stop: 918 Procedure: COLONOSCOPY SCREENING Diagnosis: History of colon polyps (High risk colon cancer surveillance: Personal history of colonic polyps) Scheduled Providers: Harleen Macdonald DO; Leona Rendon APRN.MERCERIZER MACHINE OPERATOR; Yann Kuhn MD; Abby Peoples RN Responsible Provider: Yann Kuhn MD Anesthesia Type: MAC ASA Status: 3 Anesthesia Type: MAC Last Vitals Vitals Value Taken Time BP 161/101 06/18/2343 Temp 36.1 ?C (97 ?F) 06/18/23922 HR SpO2 77 06/18/23942 Resp 16 06/18/23942 SpO2 94 % 06/18/23942 [...] June 18, 2023 TIME: 9:57 AM CSN: [id number] [facility] ANES PRE-OPon 06-18-2023 ANES PRE-OP HNO ID: [id number] Author: YANN KUHN MD Service: Anesthesiology Author Type: Physician Type: Anesthesia Preprocedure Evaluation Filed: 06/18/2023 08:20 Note Text: ANESTHESIOLOGY DAY OF SURGERY NOTE : 1955 Procedure Information Date/Time: 06/18/23 0900 Scheduled providers: Harleen Macdonald DO; Leona Rendon APRN.MERCERIZER MACHINE OPERATOR; Yann Kuhn MD; Abby Peoples RN Procedure: [...] June 18, 2023 TIME: 8:19 AM CSN: [id number] [facility] COLONOSCOPY SCREENINGon [facility] Colonoscopyon 06-18-2023 Colonoscopy [facility] Gastrointestinal Endoscopy Patient Name: Hortensia Bates Procedure Date: 06/18/2023 8:48 AM Date of : 1955 Admit Type: Outpatient Age: 67 Room: [place] [address] Gender: Female Note Status: Finalized Attending MD: Harleen Macdonald DO, [id number] Procedure: Colonoscopy Indications: High risk colon cancer [...] referring physician. Procedure Code(s): --- Professional --- 74254, Colonoscopy, flexible; with biopsy, single or multiple [...] or abscess without bleeding CPT copyright 2020 [employer]. All rights reserved. The codes documented in this report are preliminary and upon metallographic technician review may be revised to meet current compliance requirements. Attending Participation: I personally performed the entire procedure. Scope In: 8:53:53 AM Scope Out: 9:15:29 AM DO Harleen Hurd DO 06/18/2023 9:19:27 AM This report has been signed electronically by Harleen Macdonald DO Number of Addenda: 0 Note Initiated On: 06/18/2023 8:48 AM Estimated Blood Loss: Estimated blood loss was minimal. Normal [facility] GLUCOSE, BLOOD (POC)on 06-18 Glucose [Mass/Vol] 107 mg/dL Abnormal 74 - 99 mg/dL [facility] HISTORY PHYSICALon HISTORY PHYSICAL HNO ID: [id number] Author: HARLEEN MACDONALD DO Service: Gastroenterology Author [...] MAC Additional Comments: None Harleen Macdonald DO [facility] SURGICAL PATHOLOGYon 024 CASE REPORT [facility] Comment on above: Order Comment: Speci men Type: TISSUE SPECIMEN Ordering Facility: [facility] Address: [address] [place] [address] Result Comment: Surg [facility] Pathology Report Case: [id number] Authorizing Provider: Harleen Macdonald DO Collected: 06/18/2023 08:59 AM Ordering Location: Procedures Received: 06/18/2023 09:31 AM Pathologist: Thi Delvalle MD, PhD Specimens: A) - CECUM POLYP B) - ASCENDING COLON POLYP C) - TRANSVERSE COLON POLYP D) - SIGMOID COLON POLYP E) - RECTAL BIOPSY Performed By: #### S #### [facility] CLIA [id number] [address] [place] [address] [place] FINAL DIAGNOSIS Normal [facility] Comment on above: Order Comment: Speci men Type: TISSUE SPECIMEN Ordering Facility: [facility] Address: [address] [place] [address] Result Comment: A. C olon, cecum, polyp, [...] level examined. Performed By: #### S #### [facility] CLIA [id number] [address] [place] [address] [place] FINAL PERFORMING LAB Normal [facility] Comment on above: Order Comment: Speci men Type: TISSUE SPECIMEN Ordering Facility: [facility] Address: [address] [place] [address] Result Comment: Diag nostic interpretation performed at [facility], [address] [place] [address] CLIA# [id number] Inpatient Care Manager Rn: José Miguel White M.D. Performed By: #### S #### [facility] [place] [id number] [address] [place] [address] [place] GROSS DESCRIPTION A. CECUM POLYP Normal [facility] Comment on above: Order Comment: Speci men Type: TISSUE SPECIMEN Ordering Facility: [facility] Address: [address] [place] [address] Result Comment: Rece ived in formalin is [...] 2023 3:40 PM Gross examination performed at [facility], [address] [place] [address] Performed By: #### S #### [facility] IA [id number] [address] [place] [address] OF [place] CNPJaney 06-04-2023 CNPN Telephone (GASTAV) HORTENSIA BATES ([id number]) 1955 F Date Time Provider Department 06/04/23 HARLEEN MACDONALD During your visit today, we recorded the following information about you: Naila Fleming OCCA 06/04/2023 11:19 AM Signed Contacted and spoke with patient regarding prep instructions for upcoming procedure. Answered all patient's questions. Patient demonstrated understanding and was instructed to call [phone] and ask for nurse triage line for [...] 20 mins and then resume. Please call [phone] and ask for Nurse Triage with any [...] and then resume. THANK YOU! Please call [phone] and ask for nurse triage line if you have any questions [facility] Jared Mcneil - 2nd floor (Surgery Center) [address] [facility] [place] [address] Allergies As of Date: 06/04/2023 Noted Allergy [...] (more content not included)... Normal [facility] CNOVon 04-29-2023 CNOV Office Visit (GASTAV ) HORTENSIA BAETS ([id number]) 1955 F Date Time Provider Department 04/29/23 [...] If you do not have a responsible boat driver (family member or friend) with you to take you home, your exam cannot be done with sedation and will be cancelled. Please bring a list of all of your current medications, including any Uoct-pvd-Tbvwvek medications with you. Medications If you take [...] Compliant: Consultation requested by Dr. Kaila Goldstein, [facility] for an opinion regarding hx of colon polyps. My final recommendations will be communicated back to the requesting physician by way of shared Medical record or letter to requesting physician via US mail. HPI: Hortensia Bates is a 67 year old female with PMH significant for hypo (more content not included)... Normal [facility] Wes [facility]21-2023 [facility] ZEESHANHORTENSIA BECKER ([id number]) 1955 F Date Time Provider Department 04/21/23 CARMEN JACOB [facility] During your visit today, we recorded the [...] Status:Closed by MAY ÁLVAREZEKAH on 04/21/23 Normal [facility] Glucose Glucometer (BldC) [M ass/Vol]Ordered By: Kaila Goldstein on 04-03-2023 Glucose [Mass/Vol] 118 mg/dL [facility] Comment on above: Random Glucose Refer ence Range is dependent on time and content of last meal. Glucose of more than 200 mg/dL in a nonstressed, ambulatory subject supports the diagnosis of Diabetes Mellitus. Glucose Poct Glucometerson 1 06-03-2022 Glucose [Mass/Vol] 118 mg/dL Normal [facility] Comment on above: Result Comment: [place] om Glucose Reference Range is dependent on time and content of last meal. Glucose of more than 200 mg/dL in a nonstressed, ambulatory subject supports the diagnosis of Diabetes Mellitus. PERFORMED BY: [place] [address] PATHOLOGIST SCREEN TENDER HELPER DARNELL WESLEY M.D. Performed By: #### G GISEL #### Point of Care testing , PET tumor init tx strat sb-m ton 04-03-2023 PET tumor init tx strat sb-mt [place] [address] Nuclear Medicine Report Signed Patient: Hortensia Bates MR#: [id number] : 1955 Acct:[id number] Age/Sex: 67 / F ADM Date: 04/03/23 Loc: Room: Type: [facility] Attending Dr: Kaila Goldstein Copies to: Simone Reid Jr, DO Kaila RADHA Blandon Ordering Provider: RADHA Blanton Date of Service: [...] recommended. Impression dictated by: Simone Reid Jr., D.OPrema04/03/2023 1:18 PM Dictation Location: [place] [address] Transcribed By: [facility] 04/03/23 1318 Dictated By: Simone Reid Jr, DO 04/03/23 1202 Signed By: 04/03/23 1318 [facility] Physician Referralon -27-2 023 Physician Referral [id number]. [id number] Normal [facility] CBC AUTO DIFFon 09-15-2022 BASO # 0.1 103/ul Normal 0.0-0.1 [facility] Comment on above: Performed By: #### C BC #### [facility] [address] [address] [address] Yenny Huertas Basophils/100 WBC (Bld) 0.7 % Normal 0.2-2.0 [facility] Comment on above: Performed By: #### C BC #### [facility] [address] [address] [address] Yenny Huertas EO # 0.2 103/ul Normal 0.0-0.7 [facility] Comment on above: Performed By: #### C BC #### [facility] [address] [place] [address] Dr. Yenny Huertas Eosinophils/100 WBC (Bld) 2.7 % Normal 0.9-7.0 [facility] Comment on above: Performed By: #### C BC #### [facility] [address] [place] [address] Dr. Yenny Huertas Erythrocyte distribution width (RBC) [Ratio] 14.6 % Normal 11.0-15.0 [facility] Comment on above: Performed By: #### C BC #### [facility] [address] [place] [address] Dr. Yenny Huertas Hematocrit (Bld) [Volume fraction] 41.4 % Normal 36.0-48.0 [facility] Comment on above: Performed By: #### C BC #### [facility] [address] [place] [address] Dr. Yenny Huertas Hemoglobin (Bld) [Mass/Vol] 13.6 g/dL Normal 12.0-16.0 [facility] Comment on above: Performed By: #### C BC #### [facility] [address] [place] [address] Dr. Yenny Huertas IG # 0.03 10e3/ul Normal 0.00-0.03 [facility] Comment on above: Performed By: #### C BC #### [facility] [address] [place] [address] Dr. Yenny Huertas IG % 0.3 % Normal 0.0-0.5 [facility] Comment on above: Performed By: #### C BC #### [facility] [address] [place] [address] Dr. Yenny Huertas LYMPH # 3.3 103/ul Normal 1.2-3.8 [facility] Comment on above: Performed By: #### C BC #### [facility] [address] [place] [address] Dr. Yenny Huertas Lymphocytes/100 WBC (Bld) 36.3 % Normal 20.5-60.0 [facility] Comment on above: Performed By: #### C BC #### [facility] [address] [place] [address] Dr. Yenny Huertas MANUAL DIFF REQ NO Normal [facility] Comment on above: Performed By: #### C BC #### [facility] [address] [place] [address] Dr. Yenny Huertas MCH (RBC) [Entitic mass] 29.1 pg Normal 26.7-34.0 [facility] Comment on above: Performed By: #### C BC #### [facility] [address] [place] [address] Dr. Yenny Huertas MCHC (RBC) [Mass/Vol] 32.9 g/dL Normal 29.9-35.2 [facility] Comment on above: Performed By: #### C BC #### [facility] [address] [place] [address] Dr. Yenny Huertas MCV (RBC) [Entitic vol] 88.7 fL Normal 81.0-99.0 [facility] Comment on above: Performed By: #### C BC #### [facility] [address] [place] [address] Dr. Yenny Huertas MONO # 0.7 103/ul Normal 0.3-0.8 [facility] Comment on above: Performed By: #### C BC #### [facility] [address] [place] [address] Dr. Yenny Huertas Monocytes/100 WBC (Bld) 7.7 % Normal 1.7-12.0 [facility] Comment on above: Performed By: #### C BC #### [facility] [address] [place] [address] Dr. Yenny Huertas NEUT # 4.7 103/ul Normal 1.4-6.5 [facility] Comment on above: Performed By: #### C BC #### [facility] [address] [place] [address] Dr. Yenny Huertas Neutrophils/100 WBC (Bld) 52.3 % Normal 43.0-75.0 [facility] Comment on above: Performed By: #### C BC #### [facility] [address] [address] [address] Yenny Huertas Platelet mean volume (Bld) [Entitic vol] 9.9 fL Normal 9.5-13.5 [facility] Comment on above: Performed By: #### C BC #### [facility] [address] [place] [address] Dr. Yenny Huertas PLT 285 103/ul Normal 150-450 [facility] Comment on above: Performed By: #### C BC #### [facility] [address] [place] [address] Dr. Yenny Huertas RBC 4.67 106/ul Normal 4.20-5.40 [facility] Comment on above: Performed By: #### C BC #### [facility] [address] [place] [address] Dr. Yenny Huertas WBC 9.0 103/ul Normal 4.0-11.0 [facility] Comment on above: Performed By: #### C BC #### [facility] [address] [place] [address] Dr. eYnny Huertas FREE T4on 09-15-2022 Free T4 [Mass/Vol] 1.04 ng/dL Normal 0.76-1.46 [facility] Comment on above: Performed By: #### F T4 #### [facility] [address] [place] [address] Dr. Yenny Huertas GLYCOHEMOGLOBIN A1Con 2022 ADA RECOMMENDATION SEE BELOW Normal [facility] Comment on above: Result Comment: ADA RECOMMENDED LIMIT 4.0 - 6.0 ADA THERAPEUTIC TARGET < 7.0 ACTION SUGGESTED > 7.0 Performed By: #### A 1C #### [facility] [address] [place] [address] Dr. Yenny Huertas Glucose [Mass/Vol] 126 mg/dL Normal [facility] Comment on above: Performed By: #### A 1C #### [facility] [address] [place] [address] Dr. Yenny Huertas HbA1c (Bld) [Mass fraction] 6.0 % Normal 4.5-6.2 [facility] Comment on above: Performed By: #### A 1C #### [facility] [address] [place] [address] Dr. Yenny Huertas MICROALBUMIN, RAND URon 05-0 mALB <1.3 Normal <=30.0 [facility] Comment on above: Performed By: #### M ALBR #### [facility] [address] [place] [address] Dr. Yenny Huertas PROF 14(COMP METB)on 023 Albumin [Mass/Vol] 3.5 g/dL Normal 3.4-5.0 [facility] Comment on above: Performed By: #### T SH, CMP #### [facility] [address] [place] [address] Dr. Yenny Huertas Albumin/Globulin [Mass ratio] 0.9 {ratio} Normal [facility] Comment on above: Performed By: #### T SH, CMP #### [facility] [address] [place] [address] Dr. Yenny Huertas ALP [Catalytic activity/Vol] 53 U/L Normal 46-116 [facility] Comment on above: Performed By: #### T SH, CMP #### [facility] [address] [place] [address] Dr. Yenny Huertas ALT [Catalytic activity/Vol] 30 U/L Normal 14-59 [facility] Comment on above: Performed By: #### T SH, CMP #### [facility] [address] [place] [address] Dr. Yenny Huertas Anion gap [Moles/Vol] 9.6 mmol/L Normal [facility] Comment on above: Performed By: #### T SH, CMP #### [facility] [address] [place] [address] Dr. Yenny Huertas AST [Catalytic activity/Vol] 17 U/L Normal 15-37 [facility] Comment on above: Performed By: #### T SH, CMP #### [facility] [address] [place] [address] Dr. Yenny Huertas Bilirubin [Mass/Vol] 0.6 mg/dL Normal 0.2-1.0 [facility] Comment on above: Performed By: #### T SH, CMP #### [facility] [address] [place] [address] Dr. Yenny Huertas Calcium [Mass/Vol] 9.1 mg/dL Normal 8.5-10.1 [facility] Comment on above: Performed By: #### T SH, CMP #### [facility] [address] [place] [address] Dr. Yenny Huertas Chloride [Moles/Vol] 106 mmol/L Normal 98-107 [facility] Comment on above: Performed By: #### T SH, CMP #### [facility] [address] [place] [address] Dr. Yenny Huertas CO2 [Moles/Vol] 26.4 mmol/L Normal 21.0-32.[address] [facility] Comment on above: Performed By: #### T MADELIN, CMP #### [facility] [address] [place] [address] Dr. Yenny Huertas Creatinine [Mass/Vol] 0.84 mg/dL Normal 0.55-1.02 [facility] Comment on above: Performed By: #### T SH, CMP #### [facility] [address] [place] [address] Dr. Yenny Huertas EGFR-AF SOUTH AFRICAN >60 Normal >=60 [facility] Comment on above: Performed By: #### T SH, CMP #### [facility] [address] [place] [address] Dr. Yenny Huertas EGFR-NON AF SOUTH AFRICAN >60 Normal >=60 [facility] Comment on above: Performed By: #### T SH, CMP #### [facility] [address] [place] [address] Dr. Yenny Huertas Globulin (S) [Mass/Vol] 3.9 g/dL Normal [facility] Comment on above: Performed By: #### T SH, CMP #### [facility] [address] [place] [address] Dr. Yenny Huertas Glucose [Mass/Vol] 119 mg/dL Critically high 74-106 [facility] Comment on above: Performed By: #### T SH, CMP #### [facility] [address] [place] [address] Dr. Yenny Huertas Potassium [Moles/Vol] 4.0 mmol/L Normal 3.5-5.1 [facility] Comment on above: Performed By: #### T SH, CMP #### [facility] [address] [place] [address] Dr. Yenny Huertas Protein [Mass/Vol] 7.4 g/dL Normal 6.4-8.2 [facility] Comment on above: Performed By: #### T MADELIN, CMP #### [facility] [address] [place] [address] Dr. Yenny Huertas Sodium [Moles/Vol] 138 mmol/L Normal 136-145 [facility] Comment on above: Performed By: #### T MADELIN, CMP #### [facility] [address] [place] [address] Dr. Yenny Huertas Urea nitrogen [Mass/Vol] 21.0 mg/dL Critically high 7.0-18.0 [facility] Comment on above: Performed By: #### T MADELIN, CMP #### [facility] [address] [place] [address] Dr. Yenny Huertas Urea nitrogen/Creatinine [Mass ratio] 25.0 mg/mg Normal [facility] Comment on above: Performed By: #### T MADELIN, CMP #### [facility] [address] [place] [address] Dr. Yenny Huertas TSHon 09-15-2022 TSH 3.836 uIU/mL Critically high 0.358-3.740 [facility] Comment on above: Performed By: #### T SH, CMP #### [facility] [address] [place] [address] Dr. Yenny Huertas UA RANDOM W/MICROSCOPICon BACTERIA TRACE Abnormal NONE SEEN [facility] Comment on above: Performed By: #### U AMIC #### [facility] [address] [address] [address] Yenny Huertas Bilirubin Ql (U) Negative Normal NEGATIVE [facility] Comment on above: Performed By: #### U AMIC #### [facility] [address] [address] [address] Yenny Huertas CAST NONE SEEN Normal NONE SEEN [facility] Comment on above: Performed By: #### U AMIC #### [facility] [address] [address] [address] Yenny Huertas Clarity (U) CLEAR Normal CLEAR [facility] Comment on above: Performed By: #### U AMIC #### [facility] [address] [place] [address] Dr. Yenny Huertas Color (U) LT. YELLOW Normal YELLOW [facility] Comment on above: Performed By: #### U AMIC #### [facility] [address] [place] [address] Dr. Yenny Huertas Crystals LM Nom (Urine sed) NONE SEEN Normal NONE SEEN [facility] Comment on above: Performed By: #### U AMIC #### [facility] [address] [place] [address] Dr. Yenny Huertas Epithelial cells LM Ql (Urine sed) MODERATE Abnormal NONE SEEN /RARE [facility] Comment on above: Performed By: #### U AMIC #### [facility] [address] [place] [address] Dr. Yenny Huertas Glucose Ql (U) Negative Normal NEGATIVE [facility] Comment on above: Performed By: #### U AMIC #### [facility] [address] [place] [address] Dr. Yenny Huertas Hemoglobin Ql (U) Negative Normal NEGATIVE [facility] Comment on above: Performed By: #### U AMIC #### [facility] [address] [place] [address] Dr. Yenny Huertas Ketones Ql (U) Negative Normal NEGATIVE [facility] Comment on above: Performed By: #### U AMIC #### [facility] [address] [place] [address] Dr. Yenny Huertas LEUKOCYTES TRACE Abnormal NEGATIVE [facility] Comment on above: Performed By: #### U AMIC #### [facility] [address] [address] [address] Yenny Huertas MUCOUS NONE SEEN Normal NONE SEEN [facility] Comment on above: Performed By: #### U AMIC #### [facility] [address] [address] [address] Yenny Huertas Nitrite Ql (U) Negative Normal NEGATIVE [facility] Comment on above: Performed By: #### U AMIC #### [facility] [address] [place] [address] Dr. Yenny Huertas pH (U) 5.0 [pH] Normal 5-9 [facility] Comment on above: Performed By: #### U AMIC #### [facility] [address] [place] [address] Dr. Yenny Huertas RBC 0-2 Normal 0-2 [facility] Comment on above: Performed By: #### U AMIC #### [facility] [address] [address] [address] Yenny Huertas SPEC GRAVITY >=1.030 Abnormal 1.005-<=1.025 [facility] Comment on above: Performed By: #### U AMIC #### [facility] [address] [address] [address] Yenny Huertas UA PROTEIN Negative Normal NEGATIVE/ TRACE [facility] Comment on above: Performed By: #### U AMIC #### [facility] [address] [address] [address] Yenny Huertas Urobilinogen Qn (U) 0.2 {Mila'U}/dL Normal 0.2 - 1. 0 [facility] Comment on above: Performed By: #### U AMIC #### [facility] [address] [place] [address] Dr. Yenny Huertas WBC 2-5 Abnormal NONE SEEN [facility] Comment on above: Performed By: #### U AMIC #### [facility] [address] [place] [address] Dr. Yenny Huertas Covid-19 PCR (CVDTBH)on 12-1 5-2022 SARS-CoV-2 (COVID-19) RNA JAS+probe Ql (Unsp spec) Detected Critically abnormal NOT DETECTED [facility] Comment on above: Result Comment: This test is not yet approved or cleared by the [place] FDA. When there are no FDA-approved or cleared tests available, and other criteria are met, FDA can make tests available under an emergency access mechanism called an Emergency Use Authorization (EUA). The EUA for this test is supported by the Supervisor Corduroy Cutting of Health and Human Service's declaration that [...] longer be used). Performed By: #### [facility] #### [facility] [address] [place] [address] Dr. Yenny Huertas INFLUENZA A AND B AGon 05-01 [facility] SEE BELOW Normal [facility] Comment on above: Result Comment: Nega tive for Flu A protein angiten. Infection due to Flu A cannot be ruled out. Flu A angiten in the sample may be below the detection limit of the test. Performed By: #### I NFLUAB #### [facility] [address] [place] [address] Dr. Yenny Huertas [facility] SEE BELOW Normal [facility] Comment on above: Result Comment: Nega tive for Flu B protein antigen. Infection due to Flu B cannot be ruled out. Flu B antigen in the sample may be below the detection limit of the test. Performed By: #### I NFLUAB #### [facility] [address] [place] [address] Dr. Yenny Huertas INFLUENZA A AG Negative Normal NEGATIVE SEE COMMENT [facility] Comment on above: Performed By: #### I NFLUAB #### [facility] [address] [place] [address] Dr. Yenny Huertas INFLUENZA B AG Negative Normal NEGATIVE SEE COMMENT [facility] Comment on above: Performed By: #### I NFLUAB #### [facility] [address] [address] [address] Yenny Huertas INTERNAL CONTROLS Within Normal Limits Normal Wi thin Normal Limits [facility] Comment on above: Performed By: #### I NFLUAB #### [facility] [address] [address] [address] Yenny Huertas GLYCOHEMOGLOBIN A1Con 2021 ADA RECOMMENDATION SEE BELOW Normal [facility] Comment on above: Result Comment: ADA RECOMMENDED LIMIT 4.0 - 6.0 ADA THERAPEUTIC TARGET < 7.0 ACTION SUGGESTED > 7.0 Performed By: #### M ALBR #### [facility] [address] [address] [address] Yenny Huertas Glucose [Mass/Vol] 117 mg/dL Normal [facility] Comment on above: Performed By: #### M ALBR #### [facility] [address] [address] [address] Yenny Huertas HbA1c (Bld) [Mass fraction] 5.7 % Normal 4.5-6.2 [facility] Comment on above: Performed By: #### M ALBR #### [facility] [address] [address] [address] Yenny Huertas URIC ACID SERUMon 03-13-2022 Urate [Mass/Vol] 4.8 mg/dL Normal 2.6-6.[address] [facility] Comment on above: Performed By: #### U DILIA #### [facility] [address] [place] [address] Dr. Yenny Huertas Endoscopy Reporton 1 Endoscopy Report MR#: [id number] [facility] Pt. Name: Hortensia Bates Surgery Date: 11/02/2020 [...] Aranda MD Date Trans: 11/03/2020 08:22 A/lazarus [id number] Normal [facility] POC GLUCOSE LABon 11-02-2020 Glucose [Mass/Vol] 90 mg/dL Normal 70-100 [facility] Comment on above: Performed By: #### 3 1792 #### [address] BASIC METABOLIC PANELon - Calcium [Mass/Vol] 7.9 mg/dL Low 8.6-10.3 [facility] Comment on above: Order Comment: No: D o not add to previous draw Performed By: #### 8 [id number] #### [facility] [address] [place] [address], [place] Chloride [Moles/Vol] 107 mmol/L Normal 98-[address] [facility] Comment on above: Order Comment: No: D o not add to previous draw Performed By: #### 8 [id number] #### [facility] [address] [place] [address], [place] CO2 [Moles/Vol] 24 mmol/L Normal 21-31 [facility] Comment on above: Order Comment: No: D o not add to previous draw Performed By: #### 8 [id number] #### [facility] [address] [place] [address], [place] Creatinine [Mass/Vol] 0.62 mg/dL Normal 0.60-1.[address] [facility] Comment on above: Order Comment: No: D o not add to previous draw Performed By: #### 8 [id number] #### [facility] [address] [place] [address], [place] GFR/1.73 sq M.predicted among blacks MDRD (S/P/Bld) [Vol rate/Area] mL/min/{1.73_m2} Normal >[address] [facility] Comment on above: Order Comment: No: D o not add to previous draw Performed By: #### 8 [id number] #### [facility] [address] [place] [address], [place] GFR/1.73 sq M.predicted among non-blacks MDRD (S/P/Bld) [Vol rate/Area] mL/min/{1.73_m2} Normal >[address] [facility] Comment on above: Order Comment: No: D o not add to previous draw Performed By: #### 8 [id number] #### [facility] [address] [place] [address], [place] Glucose [Mass/Vol] 106 mg/dL High 70-100 [facility] Comment on above: Order Comment: No: D o not add to previous draw Performed By: #### 8 [id number] #### [facility] [address] [place] [address], [place] Potassium [Moles/Vol] 3.9 mmol/L Normal 3.5-5.[address] [facility] Comment on above: Order Comment: No: D o not add to previous draw Performed By: #### 8 [id number] #### [facility] [address] [place] [address], [place] Sodium [Moles/Vol] 137 mmol/L Normal 136-145 [facility] Comment on above: Order Comment: No: D o not add to previous draw Performed By: #### 8 [id number] #### [facility] [address] [place] [address], [place] Urea nitrogen [Mass/Vol] 11 mg/dL Normal 7-[address] [facility] Comment on above: Order Comment: No: D o not add to previous draw Performed By: #### 8 [id number] #### [facility] [address] [place] [address], [facility] CBC COMPLETE BLOOD COUNTon 0 - Erythrocyte distribution width (RBC) [Ratio] 14.1 % Normal 11.5-15.[address] [facility] Comment on above: Order Comment: No: D o not add to previous draw Performed By: #### 8 [id number] #### [facility] [address] [place] [address], [place] Hematocrit (Bld) [Volume fraction] 37.8 % Normal 36.0-45.[address] [facility] Comment on above: Order Comment: No: D o not add to previous draw Performed By: #### 8 [id number] #### [facility] [address] [place] [address], [facility] Hemoglobin (Bld) [Mass/Vol] 12.2 g/dL Normal 12.0-15.[address] [facility] Comment on above: Order Comment: No: D o not add to previous draw Performed By: #### 8 [id number] #### [facility] [address] [facility] [place] [address], [facility] MCH (RBC) [Entitic mass] 29.6 pg Normal 27.0-33.[address] [facility] Comment on above: Order Comment: No: D o not add to previous draw Performed By: #### 8 [id number] #### [facility] [address] [facility]. [address] MCHC (RBC) [Mass/Vol] 32.3 g/dL Normal 32.0-35.[address] [facility] Comment on above: Order Comment: No: D o not add to previous draw Performed By: #### 8 5499 #### [facility] [address] [facility] [place] [address], [facility] MCV (RBC) [Entitic vol] 91.7 fL Normal 82.0-98.[address] [facility] Comment on above: Order Comment: No: D o not add to previous draw Performed By: #### 8 5499 #### [facility] [address] [facility]. [address] Nucleated RBC/100 WBC (Bld) [Ratio] 0 % Normal 0-[address] [facility] Comment on above: Order Comment: No: D o not add to previous draw Performed By: #### 8 [id number] #### [facility] [address] [facility] [place] [address], [facility] PLAT CNT 276 10*3/uL Normal 150-400 [facility] Comment on above: Order Comment: No: D o not add to previous draw Performed By: #### 8 [id number] #### [facility] [address] [place] [address], [facility] RBC (Bld) [#/Vol] 4.12 10*6/uL Normal 3.80-5.00 The [facility] Comment on above: Order Comment: No: D o not add to previous draw Performed By: #### 8 [id number] #### [facility] [address] [place] [address], [facility] WBC (Bld) [#/Vol] 15.14 10*3/uL High 4.00-10.[address] [facility] Comment on above: Order Comment: No: D o not add to previous draw Performed By: #### 8 [id number] #### [facility] [address] [place] [address], [facility] MAGNESIUM BLOODon 07-27-2020 Magnesium [Mass/Vol] 1.7 mg/dL Low 1.9-2.[address] [facility] Comment on above: Order Comment: No: D o not add to previous draw Performed By: #### 8 [id number] #### [facility] [address] [place] [address], [facility] POC GLUCOSE LABon 07-27-2020 Glucose [Mass/Vol] 93 mg/dL Normal 70-100 [facility] Comment on above: Performed By: #### 3 1792 #### [facility] [address] [place] [address], [place] Glucose [Mass/Vol] 101 mg/dL High 70-100 [facility] Comment on above: Performed By: #### 3 5200 #### [facility] [address] [place] [address], [facility] Cardiovascular Lab Reporton 07-26-2020 Cardiovascular Lab Report [facility] Patient Name: Hortensia Bates [facility] MR #: [id number] Physician: Suleiman Salamanca MD Department of Service Date: 07/26/2020 Medicine Birthdate: 1955 Division of Room #: 3AB [id number] Cardiology Adult Cardiovascular Services [facility] [address] [place] [address] Cardiovascular Laboratory Report ATRIAL FIBRILLATION ABLATION PROCEDURE [...] mildly enlarged. Esophagus was mapped using the [employer] 3D mapping software. Double transseptal access technique [...] fol (more content not included)... Normal [facility] POC GLUCOSE LABon 07-26-2020 Glucose [Mass/Vol] 135 mg/dL High 70-100 [facility] Comment on above: Performed By: #### 8 7069 ####[facility] [place] [address], [facility] Glucose [Mass/Vol] 134 mg/dL High 70-100 [facility] Comment on above: Performed By: #### 8 5499 ####[facility] [place] [address], [place] Glucose [Mass/Vol] 106 mg/dL High 70-100 [facility] Comment on above: Performed By: #### 8 5499 ####[facility] [facility] [place] [address], [facility] Endoscopy Reporton 0 Endoscopy Report MR#: [id number] [facility] Pt. Name: Hortensia Bates Surgery Date: 04/23/2020 Room #: 3AB [id number] Date of : 1955 PROCEDURE NOTE ATTENDING: [...] snare, measured 3 mm and 5 mm. Jaircsja-wv-cgxirf sigmoid diverticulosis. 3. Poor colon preparation. RECOMMENDATIONS: [...] A Arley Sanchez M.D. Date Dict: 04/23/2020/08:29 Rosa Sanchez M.D. Date Trans: 04/23/2020 10:38 Nona/lazarus [id number] Normal [facility] POC GLUCOSE LABon 04-23-2020 Glucose [Mass/Vol] 116 mg/dL High 70-100 [facility] Comment on above: Performed By: #### 8 9079 #### [facility] [address] [place] [address], [facility] Glucose [Mass/Vol] 98 mg/dL Normal 70-100 [facility] Comment on above: Performed By: #### 3 5620 #### [facility] [address] [place] [address], [place] Glucose [Mass/Vol] 89 mg/dL Normal 70-100 [facility] Comment on above: Performed By: #### 8 5499 ####[facility] [place] [address], [place] POC GLUCOSE LABon 04-22-2020 Glucose [Mass/Vol] 93 mg/dL Normal 70-100 [facility] Comment on above: Performed By: #### 3 1792 #### [facility] [address] [place] [address], [place] Glucose [Mass/Vol] 99 mg/dL Normal 70-100 [facility] Comment on above: Performed By: #### 3 5200 #### [facility] [address] [place] [address], [place] Glucose [Mass/Vol] 109 mg/dL High 70-100 [facility] Comment on above: Performed By: #### 3 1792 #### [facility] [address] [place] [address], [facility] *SARS-CoV-2 COVID-19on 04-21 Clinical Report Normal [facility] Comment on above: Result Comment: Spec imen: OROPHARYNGEAL Collected: 04/21/2020 11:17 Status: Final Last Updated: 04/22/2020 12:41 COVID-19 (Final) Not Detected The [employer] SARS-CoV-2 assay is a real-time (rt) reverse transcriptase (RT) polymerase chain reaction (PCR) test intended for the Launchr system. The SARS-CoV-2 primer and probe sets are designed to detect RNA from SARS-CoV-2 in a nasopharyngeal (INVENTORY TAKER) or oropharyngeal (OP) swab from patients with [...] and in vitro diagnostic procedures. The [employer] BioGX SARS-CoV-2 assay is only for use under the Food and Drug Administration Emergency Use Authorization. Testing is limited to laboratories certified under the Clinical Laboratory Improvement Amendments of 1988 (CLIA), 42 U.S.C. 263a, to perform high complexity tests. Performed By: #### 3 5200 #### [facility] [address] [place] [address], [facility] POC GLUCOSE LABon 04-21-2020 Glucose [Mass/Vol] 105 mg/dL High 70-100 [facility] Comment on above: Performed By: #### 8 5499 #### [facility] [address] [place] [address], [place] Glucose [Mass/Vol] 97 mg/dL Normal 70-100 [facility] Comment on above: Performed By: #### 8 5499 ####[facility] [place] [address], [place] Glucose [Mass/Vol] 94 mg/dL Normal 70-100 [facility] Comment on above: Performed By: #### 8 5499 ####[facility] [place] [address], [place] Glucose [Mass/Vol] 98 mg/dL Normal 70-100 [facility] Comment on above: Performed By: #### 8 5499 ####[facility] [place] [address], [place] PROTHROMBIN TIMEon 0 INR Coag (PPP) [Relative time] 1.04 {INR} Normal 0.91-1.[address] [facility] Comment on above: Order Comment: No: [...] CHEST 1995;108:231S-246S. Performed By: #### 1 0, 69393 #### [facility] [address] PT Coag (PPP) [Time] 13.6 s Normal 12.3-14.8 [facility] Comment on above: Order Comment: No: D o not add to previous draw Result Comment: ALL RESULTS MUST BE INTERPRETED WITH RESPECT TO BLOOD DRAWING ARTIFACT OR DILUTION ERROR OF ANTICOAGULANT AT THE TIME OF SAMPLING. Performed By: #### 1 69, 67564 #### [facility] [address] BASIC METABOLIC PANELon 12-0 Calcium [Mass/Vol] 8.8 mg/dL Normal 8.6-10.3 [facility] Comment on above: Order Comment: No: D o not add to previous draw Performed By: #### 1 0, 64757 #### [facility] [address] Chloride [Moles/Vol] 103 mmol/L Normal 98-[address] [facility] Comment on above: Order Comment: No: D o not add to previous draw Performed By: #### 1 69, 55577 #### [facility] [address] [place] [address], [place] CO2 [Moles/Vol] 26 mmol/L Normal 21-31 [facility] Comment on above: Order Comment: No: D o not add to previous draw Performed By: #### 1 0070, 84392 #### [facility] [address] [place] [address], [place] Creatinine [Mass/Vol] 0.82 mg/dL Normal 0.60-1.20 [facility] Comment on above: Order Comment: No: D o not add to previous draw Performed By: #### 1 0, 62632 #### [facility] [address] [place] [address], [place] GFR/1.73 sq M.predicted among blacks MDRD (S/P/Bld) [Vol rate/Area] mL/min/{1.73_m2} Normal >60 [facility] Comment on above: Order Comment: No: D o not add to previous draw Performed By: #### 1 0, 06559 #### [facility] [address] [place] [address], [place] GFR/1.73 sq M.predicted among non-blacks MDRD (S/P/Bld) [Vol rate/Area] mL/min/{1.73_m2} Normal >60 [facility] Comment on above: Order Comment: No: D o not add to previous draw Performed By: #### 1 0, 04837 #### [facility] [address] [place] [address], [place] Glucose [Mass/Vol] 99 mg/dL Normal 70-100 [facility] Comment on above: Order Comment: No: D o not add to previous draw Performed By: #### 1 0070, 42312 #### [facility] [address] [place] [address], [place] Potassium [Moles/Vol] 3.8 mmol/L Normal 3.5-5.1 [facility] Comment on above: Order Comment: No: D o not add to previous draw Performed By: #### 1 0070, 70107 #### [facility] [address] [place] [address], [place] Sodium [Moles/Vol] 136 mmol/L Normal 136-145 [facility] Comment on above: Order Comment: No: D o not add to previous draw Performed By: #### 1 0070, 50018 #### [facility] [address] [place] [address], [place] Urea nitrogen [Mass/Vol] 15 mg/dL Normal 7-[address] [facility] Comment on above: Order Comment: No: D o not add to previous draw Performed By: #### 1 0070, 72032 #### [facility] [address] [place] [address], [place] POC GLUCOSE LABon 04-20-2020 Glucose [Mass/Vol] 109 mg/dL High 70-100 [facility] Comment on above: Performed By: #### 3 5200 #### [facility] [address] [place] [address], [place] Glucose [Mass/Vol] 95 mg/dL Normal 70-100 [facility] Comment on above: Performed By: #### 8 5499 ####[facility] [place] [address], [place] Glucose [Mass/Vol] 92 mg/dL Normal 70-100 [facility] Comment on above: Performed By: #### 3 5200 #### [facility] [address] [place] [address], [place] Glucose [Mass/Vol] 94 mg/dL Normal 70-100 [facility] Comment on above: Performed By: #### 8 5499 ####[facility] [place] [address], [place] HEMATOCRITon 04-19-2020 Hematocrit (Bld) [Volume fraction] 42.6 % Normal 36.0-45.[address] [facility] Comment on above: Order Comment: No: D o not add to previous draw Performed By: #### 8 5499 #### [facility] [address] [place] [address], [place] HEMOGLOBINon 04-19-2020 Hemoglobin (Bld) [Mass/Vol] 13.6 g/dL Normal 12.0-15.[address] [facility] Comment on above: Order Comment: No: D o not add to previous draw Performed By: #### 8 5499 #### [facility] [address] [place] [address], [place] POC GLUCOSE LABon 04-19-2020 Glucose [Mass/Vol] 114 mg/dL High 70-100 [facility] Comment on above: Performed By: #### 8 5499 ####[facility] [place] [address], [place] Glucose [Mass/Vol] 110 mg/dL High 70-100 [facility] Comment on above: Performed By: #### 3 1792 #### [facility] [address] [place] [address], [place] Glucose [Mass/Vol] 95 mg/dL Normal 70-100 [facility] Comment on above: Performed By: #### 8 5499 ####[facility] [place] [address], [place] Glucose [Mass/Vol] 89 mg/dL Normal 70-100 [facility] Comment on above: Performed By: #### 3 1792 #### [facility] [address] [place] [address], [place] *SARS-CoV-2 COVID-19on 04-18 Clinical Report Normal [facility] Comment on above: Result Comment: Spec imen: OROPHARYNGEAL Collected: 04/17/2020 23:30 Status: Final Last Updated: 04/18/2020 09:00 COVID-19 (Final) Not Detected The [employer]ootlabGX SARS-CoV-2 assay is a real-time (rt) reverse transcriptase (RT) polymerase chain reaction (PCR) test intended for the Launchr system. The SARS-CoV-2 primer and probe sets are designed to detect RNA from SARS-CoV-2 in a nasopharyngeal (INVENTORY TAKER) or oropharyngeal (OP) swab from patients with signs and symptoms of infection who are suspected of COVID-19. Results are for the identification of SARS-CoV-2 RNA. The SARS-CoV-2 RNA is generally detectable in a nasopharyngeal or oropharyngeal swab during the acute phase of infection. The [employer]X SARS-CoV-2 assay is intended for use by qualified and trained clinical laboratory personnel specifically instructed and trained in the techniques of real-time PCR and in vitro diagnostic procedures. The SnootlabGX SARS-CoV-2 assay is only for use under the Food and Drug Administration Emergency Use Authorization. Testing is limited to laboratories certified under the Clinical Laboratory Improvement Amendments of 1988 (CLIA), 42 U.S.C. 263a, to perform high complexity tests. Performed By: #### 3 1791 #### [facility] [address] CBC COMPLETE BLOOD COUNTon 06-19-2019 Erythrocyte distribution width (RBC) [Ratio] 14.6 % Normal 11.5-15.[address] [facility] Comment on above: Order Comment: No: D o not add to previous drawMissed pt has to go to the bathroom ask to come back Performed By: #### 8 5499 #### [facility] [address] [facility] [place] [address], [facility] Hematocrit (Bld) [Volume fraction] 43.6 % Normal 36.0-45.[address] [facility] Comment on above: Order Comment: No: D o not add to previous drawMissed pt has to go to the bathroom ask to come back Performed By: #### 8 5499 #### [facility] [address] [facility]. [address] Hemoglobin (Bld) [Mass/Vol] 13.8 g/dL Normal 12.0-15.[address] [facility] Comment on above: Order Comment: No: D o not add to previous drawMissed pt has to go to the bathroom ask to come back Performed By: #### 8 5499 #### [facility] [address] [place] [address], [facility] MCH (RBC) [Entitic mass] 28.9 pg Normal 27.0-33.[address] [facility] Comment on above: Order Comment: No: D o not add to previous drawMissed pt has to go to the bathroom ask to come back Performed By: #### 8 5499 #### [facility] [address] [facility] MCHC (RBC) [Mass/Vol] 31.7 g/dL Low 32.0-35.[address] [facility] Comment on above: Order Comment: No: D o not add to previous drawMissed pt has to go to the bathroom ask to come back Performed By: #### 8 5499 #### [facility] [address] [facility]. [address] MCV (RBC) [Entitic vol] 91.2 fL Normal 82.0-98.[address] [facility] Comment on above: Order Comment: No: D o not add to previous drawMissed pt has to go to the bathroom ask to come back Performed By: #### 8 5499 #### [facility] [address] [facility] [address] Nucleated RBC/100 WBC (Bld) [Ratio] 0 % Normal 0-[address] [facility] Comment on above: Order Comment: No: D o not add to previous drawMissed pt has to go to the bathroom ask to come back Performed By: #### 8 5499 #### [facility] [address] [facility] [address], [facility] PLAT CNT 338 10*3/uL Normal 150-400 [facility] Comment on above: Order Comment: No: D o not add to previous drawMissed pt has to go to the bathroom ask to come back Performed By: #### 8 5499 #### [facility] [address] [place] [address], [facility] RBC (Bld) [#/Vol] 4.78 10*6/uL Normal 3.80-5.00 [facility] Comment on above: Order Comment: No: D o not add to previous drawMissed pt has to go to the bathroom ask to come back Performed By: #### 8 5499 #### [facility] [address] WBC (Bld) [#/Vol] 10.61 10*3/uL High 4.00-10.60 [facility] Comment on above: Order Comment: No: D o not add to previous drawMissed pt has to go to the bathroom ask to come back Performed By: #### 8 5499 #### [facility] [address] Endoscopy Reporton 0 Endoscopy Report MR#: [id number] [facility] Pt. Name: Hortensia Bates Surgery Date: 04/18/2020 Room #: 3AB [id number] Date of : 1955 PROCEDURE NOTE ATTENDING: Arlye Sanchez M.D. HOUSING OFFICER: Edmond Watkins MD PROCEDURE: Colonoscopy. INDICATION: This [...] to the patient being on anticoagulation. 3. Cnnyuxlv-mk-ypovtc sigmoid diverticulosis. 4. Poor bowel prep with [...] Watkins MD Date Trans: 04/18/2020 07:10 P/lazarus [id number] Normal [facility] POC GLUCOSE LABon 04-18-2020 Glucose [Mass/Vol] 111 mg/dL High 70-100 [facility] Comment on above: Performed By: #### 3 1792 #### [facility] [address] [place] [address], [place] Glucose [Mass/Vol] 84 mg/dL Normal 70-100 [facility] Comment on above: Performed By: #### 8 5499 ####[facility] [place] [address], [place] Glucose [Mass/Vol] 87 mg/dL Normal 70-100 [facility] Comment on above: Performed By: #### 3 1792 #### [facility] [address] [place] [address], [place] Glucose [Mass/Vol] 86 mg/dL Normal 70-100 [facility] Comment on above: Performed By: #### 8 5499 ####[facility] [place] [address], [place] Glucose [Mass/Vol] 104 mg/dL High 70-100 [facility] Comment on above: Performed By: #### 8 5499 #### [facility] [address] [place] [address], [place] PROTHROMBIN TIMEon 0 INR Coag (PPP) [Relative time] 1.85 {INR} High 0.91-1.[address] [facility] Comment on above: Order Comment: No: [...] CHEST 1995;108:231S-246S. Performed By: #### 1 0070, 39506 #### [facility] [address] PT Coag (PPP) [Time] 21.4 s High 12.3-14.[address] [facility] Comment on above: Order Comment: No: D o not add to previous draw Result Comment: ALL RESULTS MUST BE INTERPRETED WITH RESPECT TO BLOOD DRAWING ARTIFACT OR DILUTION ERROR OF ANTICOAGULANT AT THE TIME OF SAMPLING. Performed By: #### 1 0070, 43848 #### [facility] [address] [facility]. [address] CBC COMPLETE BLOOD COUNTon 06-18-2019 Erythrocyte distribution width (RBC) [Ratio] 14.6 % Normal 11.5-15.[address] [facility] Comment on above: Order Comment: Lashaun claudio Performed By: #### 8 5499 #### [facility] [address] Hematocrit (Bld) [Volume fraction] 41.7 % Normal 36.0-45.[address] [facility] Comment on above: Order Comment: Lashaun wn Performed By: #### 8 5499 #### [facility] [address] [place] [address], [facility] Hemoglobin (Bld) [Mass/Vol] 13.4 g/dL Normal 12.0-15.[address] [facility] Comment on above: Order Comment: Unkno wn Performed By: #### 8 5499 #### [facility] [address] [place] [address], [facility] MCH (RBC) [Entitic mass] 29.0 pg Normal 27.0-33.[address] [facility] Comment on above: Order Comment: Unkno wn Performed By: #### 8 5499 #### [facility] [address] [place] [address], [facility] MCHC (RBC) [Mass/Vol] 32.1 g/dL Normal 32.0-35.[address] [facility] Comment on above: Order Comment: Unkno wn Performed By: #### 8 5499 #### [facility] [address] [place] [address], [facility] MCV (RBC) [Entitic vol] 90.3 fL Normal 82.0-98.[address] [facility] Comment on above: Order Comment: Unkno wn Performed By: #### 8 5499 #### [facility] [address] [place] [address], [facility] Nucleated RBC/100 WBC (Bld) [Ratio] 0 % Normal 0-[address] [facility] Comment on above: Order Comment: Unkno wn Performed By: #### 8 5499 #### [facility] [address] [place] [address], [place] PLAT CNT 294 10*3/uL Normal 150-400 [facility] Comment on above: Order Comment: Unkno wn Performed By: #### 8 5499 #### [facility] [address] [place] [address], [place] RBC (Bld) [#/Vol] 4.62 10*6/uL Normal 3.80-5.00 The [facility] Comment on above: Order Comment: Unkno wn Performed By: #### 8 5499 #### [facility] [address] [facility] [place] [address], [facility] WBC (Bld) [#/Vol] 9.33 10*3/uL Normal 4.00-10.60 [facility] Comment on above: Order Comment: Unkno wn Performed By: #### 8 [id number] #### [facility] [address] [place] [address], [facility] CBC W/DIFFon 04-17-2020 ABS IMM GRANS 0.0 10*3/uL Normal 0.0-0.[address] [facility] Comment on above: Order Comment: No: D o not add to previous draw Performed By: #### 8 [id number] #### [facility] [address] [facility] [place] [address], [facility] ABS NEUTROPHILS 6.4 10*3/uL Normal 1.6-7.6 The [facility] Comment on above: Order Comment: No: D o not add to previous draw Performed By: #### 8 [id number] #### [facility] [address] [facility] [place] [address], [facility] Basophils (Bld) [#/Vol] 0.1 10*3/uL Normal 0.0-0.[address] [facility] Comment on above: Order Comment: No: D o not add to previous draw Performed By: #### 8 [id number] #### [facility] [address] [facility] [place] [address], [facility] Basophils/100 WBC (Bld) 0.8 % Normal 0.0-1.[address] [facility] Comment on above: Order Comment: No: D o not add to previous draw Performed By: #### 8 [id number] #### [facility] [address] [facility] [place] [address], [facility] Eosinophils (Bld) [#/Vol] 0.4 10*3/uL Normal 0.0-0.[address] [facility] Comment on above: Order Comment: No: D o not add to previous draw Performed By: #### 8 [id number] #### [facility] [address] [place] [address], [facility] Eosinophils/100 WBC (Bld) 3.3 % Normal 0.0-6.[address] [facility] Comment on above: Order Comment: No: D o not add to previous draw Performed By: #### 8 [id number] #### [facility] [address] [place] [address], [facility] Erythrocyte distribution width (RBC) [Ratio] 14.6 % Normal 11.5-15.[address] [facility] Comment on above: Order Comment: No: D o not add to previous draw Performed By: #### 8 [id number] #### [facility] [address] [place] [address], [facility] Hematocrit (Bld) [Volume fraction] 43.6 % Normal 36.0-45.[address] [facility] Comment on above: Order Comment: No: D o not add to previous draw Performed By: #### 8 [id number] #### [facility] [address] [place] [address], [facility] Hemoglobin (Bld) [Mass/Vol] 14.1 g/dL Normal 12.0-15.[address] [facility] Comment on above: Order Comment: No: D o not add to previous draw Performed By: #### 8 [id number] #### [facility] [address] [place] [address], [place] IMMATURE GRANS 0.4 % Normal 0.0-1.[address] [facility] Comment on above: Order Comment: No: D o not add to previous draw Performed By: #### 8 [id number] #### [facility] [address] [place] [address], [place] Lymphocytes (Bld) [#/Vol] 3.2 10*3/uL Normal 1.2-4.[address] [facility] Comment on above: Order Comment: No: D o not add to previous draw Performed By: #### 8 [id number] #### [facility] [address] [place] [id number], [facility] Lymphocytes/100 WBC (Bld) 29.7 % Normal 20.0-45.[address] [facility] Comment on above: Order Comment: No: D o not add to previous draw Performed By: #### 8 [id number] #### [facility] [address] [place] [address], [facility] MCH (RBC) [Entitic mass] 29.1 pg Normal 27.0-33.[address] [facility] Comment on above: Order Comment: No: D o not add to previous draw Performed By: #### 8 [id number] #### [facility] [address] [place] [id number], [facility] MCHC (RBC) [Mass/Vol] 32.3 g/dL Normal 32.0-35.[address] [facility] Comment on above: Order Comment: No: D o not add to previous draw Performed By: #### 8 5499 #### [facility] [address] [place] [address], [facility] MCV (RBC) [Entitic vol] 89.9 fL Normal 82.0-98.[address] [facility] Comment on above: Order Comment: No: D o not add to previous draw Performed By: #### 8 5499 #### [facility] [address] [place] [id number], [facility] Monocytes (Bld) [#/Vol] 0.7 10*3/uL Normal 0.1-1.[address] [facility] Comment on above: Order Comment: No: D o not add to previous draw Performed By: #### 8 [id number] #### [facility] [address] [place] [id number], [facility] MONOS 6.8 % Normal 5.0-12.[address] [facility] Comment on above: Order Comment: No: D o not add to previous draw Performed By: #### 8 [id number] #### [facility] [address] [place] [id number], [facility] Neutrophils/100 WBC (Bld) 59.0 % Normal 40.0-72.[address] [facility] Comment on above: Order Comment: No: D o not add to previous draw Performed By: #### 8 5499 #### [facility] [address] [place] [address], [facility] Nucleated RBC/100 WBC (Bld) [Ratio] 0 % Normal 0-[address] [facility] Comment on above: Order Comment: No: D o not add to previous draw Performed By: #### 8 [id number] #### [facility] [address] [place] [address], [place] PLAT CNT 332 10*3/uL Normal 150-400 [facility] Comment on above: Order Comment: No: D o not add to previous draw Performed By: #### 8 [id number] #### [facility] [address] [facility] [place] [id number], [facility] RBC (Bld) [#/Vol] 4.85 10*6/uL Normal 3.80-5.00 [facility] Comment on above: Order Comment: No: D o not add to previous draw Performed By: #### 8 5499 #### [facility] [address] [place] [address], [place] WBC (Bld) [#/Vol] 10.90 10*3/uL High 4.00-10.[address] [facility] Comment on above: Order Comment: No: D o not add to previous draw Performed By: #### 8 5499 #### [facility] [address] [place] [address], [place] POC GLUCOSE LABon 04-17-2020 Glucose [Mass/Vol] 109 mg/dL High 70-100 [facility] Comment on above: Performed By: #### 3 1792 #### [facility] [address] [place] [address], [facility] Glucose [Mass/Vol] 93 mg/dL Normal 70-100 [facility] Comment on above: Performed By: #### 3 5200 #### [facility] [address] [facility] [place] [address], [facility] Glucose [Mass/Vol] 101 mg/dL High 70-100 [facility] Comment on above: Performed By: #### 8 5499 ####[facility] [place] [address], [facility] Glucose [Mass/Vol] 106 mg/dL High 70-100 [facility] Comment on above: Performed By: #### 8 5499 #### [facility] [address] *BLOOD CULTUREon 04-16-2020 *BLOOD CULTURE Clinical Report: (D) Specimen: BLOOD CULTURE Collected: 04/16/2020 00:31 Status: Final Last Updated: 04/21/2020 06:49 CULT RES (Final) No Growth Day [address] [facility] Comment on above: Performed By: #### 8 5499 #### [facility] [address] APTTon 04-16-2020 aPTT Coag (Bld) [Time] 72.4 s Critically high 25.0-35.[address] [facility] Comment on above: Order Comment: No: [...] 0.06 IU/ml . Performed By: #### 1 0070, 18509 #### [facility] [address] [place] [address], [facility] BASIC METABOLIC PANELon 11-3 Calcium [Mass/Vol] 9.5 mg/dL Normal 8.6-10.3 [facility] Comment on above: Order Comment: No: D o not add to previous draw Performed By: #### 1 0070, 27043 #### [facility] [address] [place] [address], [facility] Chloride [Moles/Vol] 102 mmol/L Normal 98-[address] [facility] Comment on above: Order Comment: No: D o not add to previous draw Performed By: #### 1 0070, 89192 #### [facility] [address] [place] [address], [place] CO2 [Moles/Vol] 25 mmol/L Normal 21-31 The [facility] Comment on above: Order Comment: No: D o not add to previous draw Performed By: #### 1 0, 69591 #### [facility] [address] [place] [address], [place] Creatinine [Mass/Vol] 0.69 mg/dL Normal 0.60-1.[address] [facility] Comment on above: Order Comment: No: D o not add to previous draw Performed By: #### 1 0070, 54257 #### [facility] [address] [place] [address], [place] GFR/1.73 sq M.predicted among blacks MDRD (S/P/Bld) [Vol rate/Area] mL/min/{1.73_m2} Normal >[address] [facility] Comment on above: Order Comment: No: D o not add to previous draw Performed By: #### 1 69, 64152 #### [facility] [address] [place] [address], [place] GFR/1.73 sq M.predicted among non-blacks MDRD (S/P/Bld) [Vol rate/Area] mL/min/{1.73_m2} Normal >[address] [facility] Comment on above: Order Comment: No: D o not add to previous draw Performed By: #### 1 0, 46604 #### [facility] [address] [place] [address], [place] Glucose [Mass/Vol] 102 mg/dL High 70-100 [facility] Comment on above: Order Comment: No: D o not add to previous draw Performed By: #### 1 69, 58490 #### [facility] [address] [place] [address], [place] Potassium [Moles/Vol] 3.5 mmol/L Normal 3.5-5.[address] [facility] Comment on above: Order Comment: No: D o not add to previous draw Performed By: #### 1 69, 95864 #### [facility] [address] [place] [address], [place] Sodium [Moles/Vol] 136 mmol/L Normal 136-145 [facility] Comment on above: Order Comment: No: D o not add to previous draw Performed By: #### 1 0, 87728 #### [facility] [address] [place] [address], [place] Urea nitrogen [Mass/Vol] 14 mg/dL Normal 7-[address] [facility] Comment on above: Order Comment: No: D o not add to previous draw Performed By: #### 1 69, 52689 #### [facility] [address] [place] [address], [place] Calcium [Mass/Vol] 10.0 mg/dL Normal 8.6-10.3 [facility] Comment on above: Order Comment: No: D o not add to previous draw Performed By: #### 3 1791 #### [facility] [address] [place] [address], [place] Chloride [Moles/Vol] 101 mmol/L Normal 98-[address] [facility] Comment on above: Order Comment: No: D o not add to previous draw Performed By: #### 3 1790 #### [facility] [address] [place] [address], [place] CO2 [Moles/Vol] 26 mmol/L Normal 21-31 The [facility] Comment on above: Order Comment: No: D o not add to previous draw Performed By: #### 3 1790 #### [facility] [address] [place] [address], [place] Creatinine [Mass/Vol] 0.74 mg/dL Normal 0.60-1.[address] [facility] Comment on above: Order Comment: No: D o not add to previous draw Performed By: #### 3 1 #### [facility] [address] [place] [address], [place] GFR/1.73 sq M.predicted among blacks MDRD (S/P/Bld) [Vol rate/Area] mL/min/{1.73_m2} Normal >[address] [facility] Comment on above: Order Comment: No: D o not add to previous draw Performed By: #### 3 1 #### [facility] [address] [place] [address], [place] GFR/1.73 sq M.predicted among non-blacks MDRD (S/P/Bld) [Vol rate/Area] mL/min/{1.73_m2} Normal >[address] [facility] Comment on above: Order Comment: No: D o not add to previous draw Performed By: #### 3 179 #### [facility] [address] [place] [address], [place] Glucose [Mass/Vol] 109 mg/dL High 70-100 [facility] Comment on above: Order Comment: No: D o not add to previous draw Performed By: #### 3 1791 #### [facility] [address] [place] [id number], [facility] Potassium [Moles/Vol] 3.7 mmol/L Normal 3.5-5.[address] [facility] Comment on above: Order Comment: No: D o not add to previous draw Performed By: #### 3 1791 #### [facility] [address] [place] [id number], [facility] Sodium [Moles/Vol] 136 mmol/L Normal 136-145 [facility] Comment on above: Order Comment: No: D o not add to previous draw Performed By: #### 3 1791 #### [facility] [address] [place] [id number], [facility] Urea nitrogen [Mass/Vol] 14 mg/dL Normal 7-[address] [facility] Comment on above: Order Comment: No: D o not add to previous draw Performed By: #### 3 1791 #### [facility] [address] [facility] [place] [address], [facility] CBC W/DIFFon 04-16-2020 ABS IMM GRANS 0.0 10*3/uL Normal 0.0-0.[address] [facility] Comment on above: Order Comment: No: D o not add to previous draw Performed By: #### 8 5499 #### [facility] [address] [place] [id number], [facility] ABS NEUTROPHILS 7.2 10*3/uL Normal 1.6-7.6 [facility] Comment on above: Order Comment: No: D o not add to previous draw Performed By: #### 8 5499 #### [facility] [address] [place] [id number], [facility] Basophils (Bld) [#/Vol] 0.1 10*3/uL Normal 0.0-0.[address] [facility] Comment on above: Order Comment: No: D o not add to previous draw Performed By: #### 8 5499 #### [facility] [address] [place] [address], [place] Basophils/100 WBC (Bld) 0.7 % Normal 0.0-1.[address] [facility] Comment on above: Order Comment: No: D o not add to previous draw Performed By: #### 8 5499 #### [facility] [address] [place] [address], [place] Eosinophils (Bld) [#/Vol] 0.2 10*3/uL Normal 0.0-0.[address] [facility] Comment on above: Order Comment: No: D o not add to previous draw Performed By: #### 8 5499 #### [facility] [address] [place] [address], [place] Eosinophils/100 WBC (Bld) 2.1 % Normal 0.0-6.[address] [facility] Comment on above: Order Comment: No: D o not add to previous draw Performed By: #### 8 5499 #### [facility] [address] [place] [address], [place] Erythrocyte distribution width (RBC) [Ratio] 14.4 % Normal 11.5-15.[address] [facility] Comment on above: Order Comment: No: D o not add to previous draw Performed By: #### 8 5499 #### [facility] [address] [place] [address], [place] Hematocrit (Bld) [Volume fraction] 43.2 % Normal 36.0-45.[address] [facility] Comment on above: Order Comment: No: D o not add to previous draw Performed By: #### 8 5499 #### [facility] [address] [place] [address], [place] Hemoglobin (Bld) [Mass/Vol] 14.2 g/dL Normal 12.0-15.[address] [facility] Comment on above: Order Comment: No: D o not add to previous draw Performed By: #### 8 5499 #### [facility] [address] [place] [address], [facility] IMMATURE GRANS 0.3 % Normal 0.0-1.0 [facility] Comment on above: Order Comment: No: D o not add to previous draw Performed By: #### 8 5499 #### [facility] [address] [place] [id number], [facility] Lymphocytes (Bld) [#/Vol] 2.9 10*3/uL Normal 1.2-4.[address] [facility] Comment on above: Order Comment: No: D o not add to previous draw Performed By: #### 8 5499 #### [facility] [address] [place] [id number], [facility] Lymphocytes/100 WBC (Bld) 25.1 % Normal 20.0-45.[address] [facility] Comment on above: Order Comment: No: D o not add to previous draw Performed By: #### 8 5499 #### [facility] [address] [facility] [place] [id number], [facility] MCH (RBC) [Entitic mass] 29.5 pg Normal 27.0-33.[address] [facility] Comment on above: Order Comment: No: D o not add to previous draw Performed By: #### 8 5499 #### [facility] [address] [facility] [address], [facility] MCHC (RBC) [Mass/Vol] 32.9 g/dL Normal 32.0-35.[address] [facility] Comment on above: Order Comment: No: D o not add to previous draw Performed By: #### 8 5499 #### [facility] [address] [place] [address], [place] MCV (RBC) [Entitic vol] 89.8 fL Normal 82.0-98.[address] [facility] Comment on above: Order Comment: No: D o not add to previous draw Performed By: #### 8 5499 #### [facility] [address] [place] [id number], [facility] Monocytes (Bld) [#/Vol] 0.9 10*3/uL Normal 0.1-1.[address] [facility] Comment on above: Order Comment: No: D o not add to previous draw Performed By: #### 8 5499 #### [facility] [address] [place] [address], [facility] MONOS 8.0 % Normal 5.0-12.[address] [facility] Comment on above: Order Comment: No: D o not add to previous draw Performed By: #### 8 5499 #### [facility] [address] [place] [address], [facility] Neutrophils/100 WBC (Bld) 63.8 % Normal 40.0-72.[address] [facility] Comment on above: Order Comment: No: D o not add to previous draw Performed By: #### 8 5499 #### [facility] [address] [place] [address], [facility] Nucleated RBC/100 WBC (Bld) [Ratio] 0 % Normal 0-[address] [facility] Comment on above: Order Comment: No: D o not add to previous draw Performed By: #### 8 5499 #### [facility] [address] [place] [address], [place] PLAT CNT 335 10*3/uL Normal 150-400 [facility] Comment on above: Order Comment: No: D o not add to previous draw Performed By: #### 8 5499 #### [facility] [address] [place] [address], [place] RBC (Bld) [#/Vol] 4.81 10*6/uL Normal 3.80-5.00 [facility] Comment on above: Order Comment: No: D o not add to previous draw Performed By: #### 8 5499 #### [address] WBC (Bld) [#/Vol] 11.34 10*3/uL High 4.00-10.[address] [facility] Comment on above: Order Comment: No: D o not add to previous draw Performed By: #### 8 5499 #### [facility] [address] CTA CHESTon 04-16-[address] [facility] Department of Radiology [address] [place] [id number] Patient Name: HORTENSIA BATES : 1955 Sex: F Age: Race: White Pt. Location: [address] [place] [address] Patient Status: D Ordered Date: 04/16/2020 9:05:00 [...] criteria Electronically signed: Jax Perez. Transcribed by: [email or web address], User Resident: Electronically Signed by: LA NENA SCHERER @ 05/28/2020 12:[address] [facility] Comment on above: Order Comment: Other , Planned for AFib albation, anatomy of pulmonary veins MAGNESIUM BLOODon 04-16-2020 Magnesium [Mass/Vol] 1.7 mg/dL Low 1.9-2.[address] [facility] Comment on above: Order Comment: No: D o not add to previous draw Performed By: #### 1 0070, 45835 #### [facility] [address] [place] [address], [facility] Magnesium [Mass/Vol] 1.8 mg/dL Low 1.9-2.[address] [facility] Comment on above: Order Comment: No: D o not add to previous draw Performed By: #### 1 0070, 19989 #### [facility] [address] [place] [address], [place] PHOSPHORUS BLOODon 0 Phosphate [Mass/Vol] 3.6 mg/dL Normal 2.5-5.[address] [facility] Comment on above: Order Comment: No: D o not add to previous draw Performed By: #### 1 0070, 89603 #### [facility] [address] [place] [address], [place] POC GLUCOSE LABon 04-16-2020 Glucose [Mass/Vol] 111 mg/dL High 70-100 [facility] Comment on above: Performed By: #### 8 5499 ####[facility] [place] [address], [place] Glucose [Mass/Vol] 122 mg/dL High 70-100 [facility] Comment on above: Performed By: #### 3 5200 #### [facility] [address] [place] [place] [address], [facility] Glucose [Mass/Vol] 105 mg/dL High 70-100 [facility] Comment on above: Performed By: #### 8 5499 ####[facility] [facility] [place] [address], [facility] Glucose [Mass/Vol] 106 mg/dL High 70-100 [facility] Comment on above: Performed By: #### 8 5499 #### [facility] [address] PROTHROMBIN TIMEon 04-16- 0 INR Coag (PPP) [Relative time] 2.24 {INR} High 0.91-1.[address] [facility] Comment on above: Order Comment: No: [...] CHEST 1995;[id number]. Performed By: #### 1 0070, 85558 #### [facility] [address] [place] [address], [facility] PT Coag (PPP) [Time] 24.9 s High 12.3-14.[address] [facility] Comment on above: Order Comment: No: D o not add to previous draw Result Comment: ALL RESULTS MUST BE INTERPRETED WITH RESPECT TO BLOOD DRAWING ARTIFACT OR DILUTION ERROR OF ANTICOAGULANT AT THE TIME OF SAMPLING. Performed By: #### 1 0070, [id number] #### [facility] [address] [place] [address], [facility] TROPONIN-Ion 04-16-2020 Troponin I.cardiac [Mass/Vol] 0.01 ng/mL Normal 0.00-0.04 [facility] Comment on above: Order Comment: No: D o not add to previous draw Result Comment: REFE RENCE RANGES: 0.00 - 0.04 ng/ml NORMAL 0.05 - 0.50 ng/ml INDETERMINATE > 0.50 ng/ml CONSISTENT WITH AN M.I. Performed By: #### 3 5200 #### [facility] [address] [address], [facility] Troponin I.cardiac [Mass/Vol] 0.01 ng/mL Normal 0.00-0.[address] [facility] Comment on above: Order Comment: No: D o not add to previous draw Result Comment: REFE RENCE RANGES: 0.00 - 0.04 ng/ml NORMAL 0.05 - 0.50 ng/ml INDETERMINATE > 0.50 ng/ml CONSISTENT WITH AN M.I. Performed By: #### 3 1791 #### [facility] [address] [address], [facility] Troponin I.cardiac [Mass/Vol] 0.01 ng/mL Normal 0.00-0.[address] [facility] Comment on above: Order Comment: No: D o not add to previous draw Result Comment: REFE RENCE RANGES: 0.00 - 0.04 ng/ml NORMAL 0.05 - 0.50 ng/ml INDETERMINATE > 0.50 ng/ml CONSISTENT WITH AN M.I. Performed By: #### 3 1791 #### [facility] [address] UFH HEPARIN ASSAYon 04-16-20 20 UNFRACTIONATED HEPARIN 0.28 IU/mL Low 0.30-0.[address] [facility] Comment on above: Result Comment: Channahon roxaban and Apixaban will interfere with the anti Xa assay used to monitor UFH and LMWH. Performed By: #### 1 0070, [id number] #### [facility] [address] MAGNESIUM BLOODon 04-01-2020 Magnesium [Mass/Vol] 2.0 mg/dL Normal 1.9-2.[address] [facility] Comment on above: Order Comment: No: D o not add to previous draw Performed By: #### 1 0070, [id number] #### [facility] [address] POTASSIUM BLOODon 04-01-2020 Potassium [Moles/Vol] 3.6 mmol/L Normal 3.5-5.[address] [facility] Comment on above: Order Comment: No: D o not add to previous draw Performed By: #### 1 0070, 94111 #### [facility] [address] PROTHROMBIN TIMEon 0 INR Coag (PPP) [Relative time] 1.99 {INR} High 0.91-1.[address] [facility] Comment on above: Order Comment: Unkno wn [...] 1995;108:231S-246S. Performed By: #### 8 5499 #### [facility] [address] [place] [address], [facility] PT Coag (PPP) [Time] 22.7 s High 12.3-14.8 [facility] Comment on above: Order Comment: Unkno wn Result Comment: ALL RESULTS MUST BE INTERPRETED WITH RESPECT TO BLOOD DRAWING ARTIFACT OR DILUTION ERROR OF ANTICOAGULANT AT THE TIME OF SAMPLING. Performed By: #### 8 5499 #### [facility] [address] BASIC METABOLIC PANELon 11- Calcium [Mass/Vol] 8.8 mg/dL Normal 8.6-10.3 [facility] Comment on above: Order Comment: No: D o not add to previous draw Performed By: #### 1 69, 35654 #### [facility] [address] [place] [address], [place] Chloride [Moles/Vol] 103 mmol/L Normal 98-[address] [facility] Comment on above: Order Comment: No: D o not add to previous draw Performed By: #### 1 69, 37638 #### [facility] [address] [place] [address], [place] CO2 [Moles/Vol] 26 mmol/L Normal 21-31 [facility] Comment on above: Order Comment: No: D o not add to previous draw Performed By: #### 1 69, 81138 #### [facility] [address] [place] [address], [place] Creatinine [Mass/Vol] 0.75 mg/dL Normal 0.60-1.[address] [facility] Comment on above: Order Comment: No: D o not add to previous draw Performed By: #### 1 0070, 09493 #### [facility] [address] [place] [address], [place] GFR/1.73 sq M.predicted among blacks MDRD (S/P/Bld) [Vol rate/Area] mL/min/{1.73_m2} Normal >[address] [facility] Comment on above: Order Comment: No: D o not add to previous draw Performed By: #### 1 0, 07650 #### [facility] [address] [place] [address], [place] GFR/1.73 sq M.predicted among non-blacks MDRD (S/P/Bld) [Vol rate/Area] mL/min/{1.73_m2} Normal >[address] [facility] Comment on above: Order Comment: No: D o not add to previous draw Performed By: #### 1 0, 72598 #### [facility] [address] [place] [address], [place] Glucose [Mass/Vol] 88 mg/dL Normal 70-100 [facility] Comment on above: Order Comment: No: D o not add to previous draw Performed By: #### 1 0, 37342 #### [facility] [address] [place] [address], [place] Potassium [Moles/Vol] 3.8 mmol/L Normal 3.5-5.[address] [facility] Comment on above: Order Comment: No: D o not add to previous draw Performed By: #### 1 0, 21645 #### [facility] [address] [place] [address], [place] Sodium [Moles/Vol] 135 mmol/L Low 136-145 [facility] Comment on above: Order Comment: No: D o not add to previous draw Performed By: #### 1 0070, 30126 #### [facility] [address] [place] [address], [place] Urea nitrogen [Mass/Vol] 17 mg/dL Normal 7-[address] [facility] Comment on above: Order Comment: No: D o not add to previous draw Performed By: #### 1 0070, 14978 #### [facility] [address] [place] [address], [place] MAGNESIUM BLOODon 03-31-2020 Magnesium [Mass/Vol] 1.9 mg/dL Normal 1.9-2.[address] [facility] Comment on above: Order Comment: No: D o not add to previous draw Performed By: #### 1 0070, 68860 #### [facility] [address] [place] [address], [place] POC GLUCOSE LABon 03-31-2020 Glucose [Mass/Vol] 95 mg/dL Normal 70-100 [facility] Comment on above: Performed By: #### 3 5200 #### [facility] [address] [place] [address], [place] Glucose [Mass/Vol] 86 mg/dL Normal 70-100 [facility] Comment on above: Performed By: #### 8 5499 #### [facility] [address] [place] [address], [place] Glucose [Mass/Vol] 82 mg/dL Normal 70-100 [facility] Comment on above: Performed By: #### 3 1792 #### [facility] [address] [place] [address], [place] Glucose [Mass/Vol] 92 mg/dL Normal 70-100 [facility] Comment on above: Performed By: #### 8 5499 ####[facility] [place] [address], [place] Glucose [Mass/Vol] 96 mg/dL Normal 70-100 [facility] Comment on above: Performed By: #### 8 5499 ####[facility] PROTHROMBIN TIMEon 0 INR Coag (PPP) [Relative time] 1.80 {INR} High 0.91-1.[address] [facility] Comment on above: Order Comment: No: [...] CHEST 1995;108:231S-246S. Performed By: #### 1 69, 87260 #### [facility] [address] [facility] [place] [address], [facility] PT Coag (PPP) [Time] 21.0 s High 12.3-14.[address] [facility] Comment on above: Order Comment: No: D o not add to previous draw Result Comment: ALL RESULTS MUST BE INTERPRETED WITH RESPECT TO BLOOD DRAWING ARTIFACT OR DILUTION ERROR OF ANTICOAGULANT AT THE TIME OF SAMPLING. Performed By: #### 1 0070, 07506 #### [facility] [address] [facility]. [address] BASIC METABOLIC PANELon 11- Calcium [Mass/Vol] 9.0 mg/dL Normal 8.6-10.3 [facility] Comment on above: Order Comment: No: D o not add to previous draw Performed By: #### 1 0070, 10892 #### [facility] [address] [place] [address], [place] Chloride [Moles/Vol] 101 mmol/L Normal 98-[address] [facility] Comment on above: Order Comment: No: D o not add to previous draw Performed By: #### 1 0070, 38048 #### [facility] [address] [place] [address], [place] CO2 [Moles/Vol] 25 mmol/L Normal 21-31 [facility] Comment on above: Order Comment: No: D o not add to previous draw Performed By: #### 1 0070, 56121 #### [facility] [address] [place] [address], [place] Creatinine [Mass/Vol] 0.90 mg/dL Normal 0.60-1.[address] [facility] Comment on above: Order Comment: No: D o not add to previous draw Performed By: #### 1 0070, 09346 #### [facility] [address] [place] [address], [place] GFR/1.73 sq M.predicted among blacks MDRD (S/P/Bld) [Vol rate/Area] mL/min/{1.73_m2} Normal >[address] [facility] Comment on above: Order Comment: No: D o not add to previous draw Performed By: #### 1 0070, 06328 #### [facility] [address] [place] [address], [place] GFR/1.73 sq M.predicted among non-blacks MDRD (S/P/Bld) [Vol rate/Area] mL/min/{1.73_m2} Normal >[address] [facility] Comment on above: Order Comment: No: D o not add to previous draw Performed By: #### 1 0, 12769 #### [facility] [address] [place] [address], [place] Glucose [Mass/Vol] 77 mg/dL Normal 70-100 [facility] Comment on above: Order Comment: No: D o not add to previous draw Performed By: #### 1 0, 53139 #### [facility] [address] [place] [address], [place] Potassium [Moles/Vol] 4.0 mmol/L Normal 3.5-5.[address] [facility] Comment on above: Order Comment: No: D o not add to previous draw Performed By: #### 1 69, 35826 #### [facility] [address] [place] [address], [place] Sodium [Moles/Vol] 135 mmol/L Low 136-145 [facility] Comment on above: Order Comment: No: D o not add to previous draw Performed By: #### 1 69, 72651 #### [facility] [address] [place] [address], [facility] Urea nitrogen [Mass/Vol] 17 mg/dL Normal 7-[address] [facility] Comment on above: Order Comment: No: D o not add to previous draw Performed By: #### 1 0, 31451 #### [facility] [address] [place] [address], [facility] CBC COMPLETE BLOOD COUNTon 05-30-2019 Erythrocyte distribution width (RBC) [Ratio] 14.9 % Normal 11.5-15.[address] [facility] Comment on above: Order Comment: No: D o not add to previous draw Performed By: #### 8 5499 #### [facility] [address] [place] [address], [place] Hematocrit (Bld) [Volume fraction] 47.5 % High 36.0-45.[address] [facility] Comment on above: Order Comment: No: D o not add to previous draw Performed By: #### 8 5499 #### [facility] [address] [place] [address], [facility] Hemoglobin (Bld) [Mass/Vol] 15.3 g/dL High 12.0-15.[address] [facility] Comment on above: Order Comment: No: D o not add to previous draw Performed By: #### 8 5499 #### [facility] [address] [place] [address], [facility] MCH (RBC) [Entitic mass] 29.7 pg Normal 27.0-33.[address] [facility] Comment on above: Order Comment: No: D o not add to previous draw Performed By: #### 8 5499 #### [facility] [address] [facility] [facility] [place] [address], [facility] MCHC (RBC) [Mass/Vol] 32.2 g/dL Normal 32.0-35.[address] [facility] Comment on above: Order Comment: No: D o not add to previous draw Performed By: #### 8 5499 #### [facility] [address] [facility] [place] [address], [facility] MCV (RBC) [Entitic vol] 92.1 fL Normal 82.0-98.[address] [facility] Comment on above: Order Comment: No: D o not add to previous draw Performed By: #### 8 5499 #### [facility] [address] [facility] [place] [address], [facility] Nucleated RBC/100 WBC (Bld) [Ratio] 0 % Normal 0-[address] [facility] Comment on above: Order Comment: No: D o not add to previous draw Performed By: #### 8 5499 #### [facility] [address] [place] [address], [facility] PLAT CNT 321 10*3/uL Normal 150-400 [facility] Comment on above: Order Comment: No: D o not add to previous draw Performed By: #### 8 5499 #### [facility] [address] [place] [address], [facility] RBC (Bld) [#/Vol] 5.16 10*6/uL High 3.80-5.00 [facility] Comment on above: Order Comment: No: D o not add to previous draw Performed By: #### 8 5499 #### [facility] [address] [place] [address], [facility] WBC (Bld) [#/Vol] 12.02 10*3/uL High 4.00-10.60 [facility] Comment on above: Order Comment: No: D o not add to previous draw Performed By: #### 8 5499 #### [facility] [address] Cardiovascular Lab Reporton 03-30-2020 Cardiovascular Lab Report [facility] Patient Name: [facility] Hortensia Berry MR #: [id number] Department of Physician: Jessica Lopez M.D. Division of Service Date: 03/30/2020 Cardiology Birthdate: 1955 Adult Cardiovascular Room #: 3AB [id number] [place] [address] Cardiovascular Laboratory Report CLINICAL PRESENTATION: The patient [...] infiltrated over the right radial artery. A 6-Ivorian Terumo Glidesheath slender was placed in right radial artery. The radial anti-vasospasm cocktail of verapamil 2.5 mg and nitroglycerin 200 mcg was administered through the sheath. All catheter exchanges were made over the MagLellan guidewire. A 5-Ivorian JR5 was used to engage the right coronary artery. A 5-Ivorian JL3.5 was used to engage the left [...] P Chay Arango M.D. Date Dict: 03/30/2020/09:37 Nona/Chay Arango M.D. Date Trans: 03/30/2020 01:43 P/mmo [id number] Normal [facility] MAGNESIUM BLOODon 03-30-2020 Magnesium [Mass/Vol] 2.1 mg/dL Normal 1.9-2.[address] [facility] Comment on above: Order Comment: No: D o not add to previous draw Performed By: #### 1 0070, 94534 #### [place] [address] POC GLUCOSE LABon 03-30-2020 Glucose [Mass/Vol] 94 mg/dL Normal 70-100 [facility] Comment on above: Performed By: #### 8 5499 ####[facility] [facility] [place] [address], [facility] Glucose [Mass/Vol] 95 mg/dL Normal 70-100 [facility] Comment on above: Performed By: #### 3 5200 #### [facility] [address] [facility] [place] [address], [facility] Glucose [Mass/Vol] 86 mg/dL Normal 70-100 [facility] Comment on above: Performed By: #### 8 5499 ####[facility] PROTHROMBIN TIMEon 0 INR Coag (PPP) [Relative time] 1.88 {INR} High 0.91-1.[address] [facility] Comment on above: Order Comment: Yes: Add [...] 1995;108:231S-246S. Performed By: #### 8 5499 #### [facility] [address] [facility]. [address] PT Coag (PPP) [Time] 21.7 s High 12.3-14.[address] [facility] Comment on above: Order Comment: Yes: Add to Previous draw if able Result Comment: ALL RESULTS MUST BE INTERPRETED WITH RESPECT TO BLOOD DRAWING ARTIFACT OR DILUTION ERROR OF ANTICOAGULANT AT THE TIME OF SAMPLING. Performed By: #### 8 5499 #### [facility] [address] [facility]. [address] *SARS-CoV-2 COVID-19on 03-29 SARS-CoV-2 (COVID-19) RNA JAS+probe Ql (Unsp spec) Not detected Normal Not Detected [facility] Comment on above: Order Comment: The A ptima SARS-CoV-2 assay is a nucleic acid amplification test intended for the qualitative detection of RNA from SARS-CoV-2 isolated and purified from nasopharyngeal (INVENTORY TAKER),oropharyngeal (OP), nasal swab, sputum, and bronchoalveolar lavage (BAL) specimens from patients with signs and symptoms of infection who are suspected of COVID-19. Results are for the identification of SARS-CoV-2 RNA. The SARS-CoV-2 RNA is generally detectable during the acute phase of infection. The Aptima SARS-CoV-2 Assay on the bVisual and [place] Fusion system is intended for use by laboratory personnel specifically instructed and trained in the operation of the [place] [employer] [place] [employer] system. The Aptima SARS-CoV-2 assay is [...] information. Performed By: #### 3 1792 #### [facility] [address] [place] [address], [facility] aPTT Coag (Bld) [Time] 52.2 s High 25.0-35.[address] [facility] Comment on above: Order Comment: No: [...] >0.10 Performed By: #### 8 5499 #### [facility] [address] CBC W/DIFFon 03-29-2020 ABS IMM GRANS 0.0 10*3/uL Normal 0.0-0.[address] [facility] Comment on above: Order Comment: No: D o not add to previous draw Performed By: #### 8 5499 #### [facility] [address] ABS NEUTROPHILS 7.5 10*3/uL Normal 1.6-7.6 [facility] Comment on above: Order Comment: No: D o not add to previous draw Performed By: #### 8 5499 #### [facility] [address] [place] [address], [facility] Basophils (Bld) [#/Vol] 0.1 10*3/uL Normal 0.0-0.[address] [facility] Comment on above: Order Comment: No: D o not add to previous draw Performed By: #### 8 5499 #### [facility] [address] [place] [address], [facility] Basophils/100 WBC (Bld) 0.6 % Normal 0.0-1.[address] [facility] Comment on above: Order Comment: No: D o not add to previous draw Performed By: #### 8 5499 #### [facility] [address] [place] [address], [facility] Eosinophils (Bld) [#/Vol] 0.3 10*3/uL Normal 0.0-0.[address] [facility] Comment on above: Order Comment: No: D o not add to previous draw Performed By: #### 8 5499 #### [facility] [address] [place] [address], [facility] Eosinophils/100 WBC (Bld) 2.1 % Normal 0.0-6.[address] [facility] Comment on above: Order Comment: No: D o not add to previous draw Performed By: #### 8 5499 #### [facility] [address] Erythrocyte distribution width (RBC) [Ratio] 14.7 % Normal 11.5-15.[address] [facility] Comment on above: Order Comment: No: D o not add to previous draw Performed By: #### 8 5499 #### [facility] [address] Hematocrit (Bld) [Volume fraction] 48.0 % High 36.0-45.[address] [facility] Comment on above: Order Comment: No: D o not add to previous draw Performed By: #### 8 5499 #### [facility] [address] [place] [address], [facility] Hemoglobin (Bld) [Mass/Vol] 15.5 g/dL High 12.0-15.[address] [facility] Comment on above: Order Comment: No: D o not add to previous draw Performed By: #### 8 5499 #### [facility] [address] [place] [address], [facility] IMMATURE GRANS 0.3 % Normal 0.0-1.[address] [facility] Comment on above: Order Comment: No: D o not add to previous draw Performed By: #### 8 5499 #### [facility] [address] [place] [address], [facility] Lymphocytes (Bld) [#/Vol] 3.7 10*3/uL Normal 1.2-4.[address] [facility] Comment on above: Order Comment: No: D o not add to previous draw Performed By: #### 8 5499 #### [facility] [address] [place] [address], [facility] Lymphocytes/100 WBC (Bld) 29.6 % Normal 20.0-45.[address] [facility] Comment on above: Order Comment: No: D o not add to previous draw Performed By: #### 8 5499 #### [facility] [address] [place] [id number], [facility] MCH (RBC) [Entitic mass] 28.8 pg Normal 27.0-33.[address] [facility] Comment on above: Order Comment: No: D o not add to previous draw Performed By: #### 8 [id number] #### [facility] [address] [place] [id number], [facility] MCHC (RBC) [Mass/Vol] 32.3 g/dL Normal 32.0-35.[address] [facility] Comment on above: Order Comment: No: D o not add to previous draw Performed By: #### 8 5499 #### [facility] [address] [place] [address], [facility] MCV (RBC) [Entitic vol] 89.1 fL Normal 82.0-98.[address] [facility] Comment on above: Order Comment: No: D o not add to previous draw Performed By: #### 8 [id number] #### [facility] [address] [place] [address], [facility] Monocytes (Bld) [#/Vol] 0.9 10*3/uL Normal 0.1-1.[address] [facility] Comment on above: Order Comment: No: D o not add to previous draw Performed By: #### 8 5499 #### [facility] [address] [place] [id number], [place] MONOS 7.2 % Normal 5.0-12.[address] [facility] Comment on above: Order Comment: No: D o not add to previous draw Performed By: #### 8 5499 #### [facility] [address] [place] [id number], [facility] Neutrophils/100 WBC (Bld) 60.2 % Normal 40.0-72.[address] [facility] Comment on above: Order Comment: No: D o not add to previous draw Performed By: #### 8 [id number] #### [facility] [address] [place] [address], [facility] Nucleated RBC/100 WBC (Bld) [Ratio] 0 % Normal 0-[address] [facility] Comment on above: Order Comment: No: D o not add to previous draw Performed By: #### 8 [id number] #### [facility] [address] [place] [address], [place] PLAT CNT 366 10*3/uL Normal 150-400 The [facility] Comment on above: Order Comment: No: D o not add to previous draw Performed By: #### 8 [id number] #### [facility] [address] [place] [id number], [facility] RBC (Bld) [#/Vol] 5.39 10*6/uL High 3.80-5.00 The [facility] Comment on above: Order Comment: No: D o not add to previous draw Performed By: #### 8 [id number] #### [facility] [address] [place] [address], [place] WBC (Bld) [#/Vol] 12.38 10*3/uL High 4.00-10.[address] [facility] Comment on above: Order Comment: No: D o not add to previous draw Performed By: #### 8 [id number] #### [facility] [address] [place] [address], [place] COMP METABOLIC PANELon 03-29 Albumin [Mass/Vol] 4.1 g/dL Normal 3.5-5.7 The [facility] Comment on above: Order Comment: No: D o not add to previous draw Performed By: #### 1 69, 40089 #### [facility] [address] [place] [place] [address], [place] ALKALINE PHOSPH 48 IU/L Normal 34-104 The [facility] Comment on above: Order Comment: No: D o not add to previous draw Performed By: #### 1 69, 92125 #### [facility] [address] [place] [address], [place] ALT [Catalytic activity/Vol] 19 U/L Normal 7-[address] [facility] Comment on above: Order Comment: No: D o not add to previous draw Performed By: #### 1 69, 55196 #### [facility] [address] [place] [address], [place] AST [Catalytic activity/Vol] 19 U/L Normal 13-[address] [facility] Comment on above: Order Comment: No: D o not add to previous draw Performed By: #### 1 69, 70205 #### [facility] [address] [place] [address], [place] Bilirubin [Mass/Vol] 0.8 mg/dL Normal 0.3-1.[address] [facility] Comment on above: Order Comment: No: D o not add to previous draw Performed By: #### 1 69, 89327 #### [facility] [address] [place] [address], [place] Calcium [Mass/Vol] 9.8 mg/dL Normal 8.6-10.3 The [facility] Comment on above: Order Comment: No: D o not add to previous draw Performed By: #### 1 69, 45473 #### [facility] [address] [place] [address], [place] Chloride [Moles/Vol] 100 mmol/L Normal 98-107 The [facility] Comment on above: Order Comment: No: D o not add to previous draw Performed By: #### 1 0, 98534 #### [facility] [address] [place] [address], [place] CO2 [Moles/Vol] 26 mmol/L Normal 21-31 The [facility] Comment on above: Order Comment: No: D o not add to previous draw Performed By: #### 1 0, 54827 #### [facility] [address] [place] [address], [place] Creatinine [Mass/Vol] 0.71 mg/dL Normal 0.60-1.[address] [facility] Comment on above: Order Comment: No: D o not add to previous draw Performed By: #### 1 0, 73449 #### [facility] [address] [place] [address], [place] GFR/1.73 sq M.predicted among blacks MDRD (S/P/Bld) [Vol rate/Area] mL/min/{1.73_m2} Normal >[address] [facility] Comment on above: Order Comment: No: D o not add to previous draw Performed By: #### 1 69, 47516 #### [facility] [address] [place] [address], [place] GFR/1.73 sq M.predicted among non-blacks MDRD (S/P/Bld) [Vol rate/Area] mL/min/{1.73_m2} Normal >[address] [facility] Comment on above: Order Comment: No: D o not add to previous draw Performed By: #### 1 0, 25570 #### [facility] [address] [place] [address], [place] Glucose [Mass/Vol] 107 mg/dL High 70-100 [facility] Comment on above: Order Comment: No: D o not add to previous draw Performed By: #### 1 69, 48426 #### [facility] [address] [place] [address], [facility] Potassium [Moles/Vol] 3.9 mmol/L Normal 3.5-5.[address] [facility] Comment on above: Order Comment: No: D o not add to previous draw Performed By: #### 1 0070, 08105 #### [facility] [address] [place] [address], [facility] Protein [Mass/Vol] 7.5 g/dL Normal 6.0-8.3 The [facility] Comment on above: Order Comment: No: D o not add to previous draw Performed By: #### 1 0, 40127 #### [facility] [address] [place] [id number], [facility] Sodium [Moles/Vol] 136 mmol/L Normal 136-145 The [facility] Comment on above: Order Comment: No: D o not add to previous draw Performed By: #### 1 0, 27083 #### [facility] [address] [place] [address], [facility] Urea nitrogen [Mass/Vol] 12 mg/dL Normal 7-[address] [facility] Comment on above: Order Comment: No: D o not add to previous draw Performed By: #### 1 0, 30706 #### [facility] [address] D DIMER TESTon 03-29-2020 D-DIMER TEST <0.27 Low 0.27-0.49 The [facility] Comment on above: Order Comment: No: D o not add to previous draw Result Comment: D-Di elisa values of less than 0.50 ug/ml (FEU) are considered to be a negative predictor of thrombosis. However, the D-Dimer result should be used in conjunction with pretest probability and should not be used alone to diagnose a thrombotic event. Performed By: #### 1 69, 26898 #### [facility] [address] HEMOGLOBIN A1Con 03-29-2020 Glucose [Moles/Vol] 111 mmol/L Normal The [facility] Comment on above: Order Comment: No: D o not add to previous draw Performed By: #### 3 1791 #### [facility] [address] HbA1c (Bld) [Mass fraction] 5.5 % Normal 4.0-6.[address] [facility] Comment on above: Order Comment: No: D o not add to previous draw Performed By: #### 3 1791 #### [facility] [address] MAGNESIUM BLOODon 03-29-2020 Magnesium [Mass/Vol] 2.0 mg/dL Normal 1.9-2.[address] [facility] Comment on above: Order Comment: No: D o not add to previous draw Performed By: #### 1 0070, 28683 #### [facility] [address] PROTHROMBIN TIMEon 0 INR Coag (PPP) [Relative time] 1.84 {INR} High 0.91-1.[address] [facility] Comment on above: Order Comment: No: [...] 1995;108:[id number]. Performed By: #### 8 5499 #### [facility] [address] [place] [address], [facility] PT Coag (PPP) [Time] 21.3 s High 12.3-14.8 [facility] Comment on above: Order Comment: No: D o not add to previous draw Result Comment: ALL RESULTS MUST BE INTERPRETED WITH RESPECT TO BLOOD DRAWING ARTIFACT OR DILUTION ERROR OF ANTICOAGULANT AT THE TIME OF SAMPLING. Performed By: #### 8 5499 #### [facility] [address] TROPONIN-Ion 03-29-2020 Troponin I.cardiac [Mass/Vol] 0.00 ng/mL Normal 0.00-0.04 [facility] Comment on above: Order Comment: No: D o not add to previous draw Result Comment: REFE RENCE RANGES: 0.00 - 0.14 ng/ml NEGATIVE 0.15 - 0.25 ng/ml INDETERMINATE > 0.25 ng/ml INDICATIVE OF AN M.I. Performed By: #### 1 0070, 20582 #### [facility] [address] TSH3on 03-29-2020 TSH 3RD GENERATION 3.72 uIU/mL Normal 0.34-5.60 [facility] Comment on above: Order Comment: No: D o not add to previous draw Performed By: #### 1 0070, 95696 #### [facility] [address] [facility] [facility] Vital Signs Date Time Vital Sign Value Performing Clinician Alok bolivar 06-18-2023 09:43-0500 Diastolic blood pressure 101 mm[Hg] Harleen Macdonald DO Work Phone: [facility] 06-18-2023 09:43-0500 Respiratory rate 16 /min Harleen Macdonald DO Work Phone: [facility] 06-18-2023 09:43-0500 SaO2% (BldA) [Mass fraction] 97 % Harleen Ly DO Work Phone: [facility] 06-18-2023 09:43-0500 Systolic blood pressure 161 mm[Hg] Harleen Ly DO Work Phone: [facility] 06-18-2023 09:23-0500 Body temperature 97 [degF] Harleen Ly DO Work Phone: [facility] 06-18-2023 07:49-0500 Body height 172.7 cm Harleen Ly DO Work Phone: [facility] 06-18-2023 07:49-0500 Body weight 144.7 kg Harleen Ly DO Work Phone: [facility] 04-29-2023 11:43-0500 Body weight 144.7 kg Harleen Ly DO Work Phone: [facility] 04-29-2023 11:43-0500 Diastolic blood pressure 80 mm[Hg] Harleen Ly DO Work Phone: [facility] 04-29-2023 11:43-0500 Heart rate 78 /min Harleen Ly DO Work Phone: [facility] 04-29-2023 11:43-0500 Systolic blood pressure 140 mm[Hg] Harleen Ly DO Work Phone: [facility] 04-03-2023 07:55-0500 Body height 172.72 cm Kaila Goldstein Work Phone: [facility] 04-03-2023 07:55-0500 Body weight 143.33 kg Kaila Goldstein Work Phone: [facility] Encounters Encounter Date Encounter Type Care Provider Facility Start: 07-11-2024 End: 07-11-2024 Refill Kaila Goldstein INVENTORY TAKER Work Phone: [facility] Comment on above: Hypothyroidism, unsp ecified type (CMS/HCC); Gout, unspecified; Type 2 diabetes mellitus without complication, without long-term current use of insulin (CMS/HCC) Start: 05-24-2024 End: 05-24-2024 [facility] Start: 05-11-2024 End: 05-12-2024 Refill Kaila Aichholz INVENTORY TAKER Work Phone: [facility] Comment on above: Type 2 diabetes janet itus without complication, without long- term current use of insulin (CMS/HCC) Start: 04-08-2024 End: 04-08-2024 Refill Kaila Aichholz INVENTORY TAKER Work Phone: [facility] Comment on above: Acute bacterial conj unctivitis, unspecified laterality (Primary Dx) Start: 03-02-2024 End: 03-02-2024 Refill Quinn Antunez MD Work Phone: [facility] Comment on above: Mixed hyperlipidemia (CMS/HCC) Start: 02-12-2024 End: 02-12-2024 Refill Quinn Antunez MD Work Phone: [facility] Comment on above: Primary hypertension (CMS/HCC) Start: 01-17-2024 End: 01-19-2024 Refill Kaila Aichholz INVENTORY TAKER Work Phone: [facility] Comment on above: Mixed hyperlipidemia (CMS/HCC); Hypothyroidism, unspecified type (CMS/HCC); Primary hypertension (CMS/HCC); Type 2 diabetes mellitus without complication, without long-term current use of insulin ([facility]/HCC); Gout, unspecified Start: 01-06-2024 End: 01-06-2024 Refill Kaila Aichholz INVENTORY TAKER Work Phone: [facility] Comment on above: Acute cystitis witho ut hematuria (Primary Dx) Start: 12-22-2023 Patient encounter procedure Kaila Aichholz INVENTORY TAKER Work Phone: [facility] Start: 12-22-2023 End: 12-22-2023 ambulatory KAILA MARIOLAHHOLZ Not Available Start: 11-17-2023 End: 11-17-2023 [facility] Start: 08-26-2023 End: 08-26-2023 ambulatory KAILA MARIOLAHHOLZ Not Available Start: 06-24-2023 Orders Only Kaila Torstenz INVENTORY TAKER Work Phone: [facility] Comment on above: Multiple lung nodule s (Primary Dx) Start: 06-23-2023 Telephone encounter Harleen Macdonald DO Work Phone: Gastroenterology Comment on above: Results Start: 06-18-2023 ambulatory YANN GONSALEZKIMROSITA Yobanyi ty:[facility] Start: 06-18-2023 End: 06-18-2023 Subsequent hospital visit by physician Harleen Macdonald DO Work Phone: Procedures Comment on above: History of colon marcelo yps [Z86.010] Start: 05-04-2023 End: 05-04-2023 ambulatory KAILA AICHHOLZ Not Available Start: 04-29-2023 End: 04-29-2023 ambulatory HARLEEN LY Facility:[facility] Start: 04-29-2023 End: 04-29-2023 Patient encounter procedure Harleen Ly DO Work Phone: Gastroenterology Comment on above: History of colon marcelo yps (Primary Dx) Start: 04-21-2023 Telephone encounter Carmen Jacob MD Work Phone: Gastroenterology Comment on above: Appointment Start: 04-03-2023 End: 04-03-2023 ambulatory Kaila J Mariolahholz Facility:[facility] Start: 04-03-2023 End: 04-03-2023 ambulatory Kaila J Aichholz Work Phone: [facility] Work Phone: Start: 04-03-2023 End: 04-03-2023 Patient encounter procedure Kaila Aichholz Work Phone: [facility] Work Phone: Start: 03-13-2023 ambulatory Facility:[facility] Start: 09-15-2022 End: 09-16-2022 ambulatory NYDIA GOLDSTEIN Facility: Start: 05-01-2022 End: 05-01-2022 ambulatory NYDIA GOLDSTEIN Facility: Start: 03-13-2022 End: 03-14-2022 ambulatory NYDIA GOLDSTEIN Facility: Start: 11-02-2020 End: 11-03-2020 ambulatory KAILA GOLDSTEIN Facility:[facility] Start: 07-26-2020 End: 07-27-2020 [facility] Start: 04-16-2020 End: 04-23-2020 Evaluation and management of inpatient LULUVIKTORIYA DEE Facility:[facility] Start: 03-29-2020 End: 04-01-2020 Evaluation and management of inpatient YINA MAKI Facility:[facility] Procedures Date Procedure Procedure Detail Performing [...] Goldstein Work Phone: Start: 03-18-2023 Mammography Kaila Gomesjcarlos jin INVENTORY TAKER Work Phone: Start: 11-02-2020 Colonoscopy w/biopsy single/multiple [...] Treatment Date Care Activity Detail Author Start: 06-18-2033 Screening for malign ant neoplasm of colon [facility] Start: 06-18-2026 Screening for malign ant neoplasm of colon [facility] Start: 12-21-2024 Medicare Annual Well ness (AWV) Medicare Annual Wellness (AWV) [facility] Start: 12-21-2024 Pneumococcal Vaccine : 65+ Years (1 of 2 - PCV) Pneumococcal Vaccine: 65+ Years (1 of 2 - PCV) [facility] Comment on above: Postponed from 09/29 (Patient Refused) Start: 08-18-2024 Urine screening for protein Diabetes: Urine Protein Screening [facility] Start: 08-16-2024 Glaucoma screening Diabetes: R etinopathy Screening [facility] Start: 08-04-2024 End: 08-04-2024 Patient encounter procedure 08/04/2024 1:00 PM EDT Office Visit [facility] [address] [place] [address] Kaila Goldstein, INVENTORY TAKER [address] [place] [id number] [facility] Start: 06-23-2024 End: 06-23-2024 Patient encounter procedure 06/23/2024 9:20 AM EST Office Visit [facility] [address] [place] [address] Kaila Goldstein, ANA [address] [place] [address] [facility] Start: 06-18-2024 Screening for malign ant neoplasm of colon [facility] Start: 03-18-2024 Screening for malign ant neoplasm of breast Mammogram [facility] Start: 02-18-2024 Hemoglobin A1c measurement Diabetes: Hemoglobin A1C [facility] Start: 12-10-2023 Medicare Annual Well ness (AWV) Medicare Annual Wellness (AWV) [facility] Start: 11-15-2023 Influenza vaccination Influenza Vacc ine (#1) [facility] Comment on above: Postponed from 01/16 (Patient Refused) Start: 09-16-2023 Urine screening for protein Diabetes: Urine Protein Screening [facility] Start: 08-17-2023 Pneumococcal Vaccine : 65+ Years (1 - PCV) Pneumococcal Vaccine: 65+ Years (1 - PCV) [facility] Comment on above: Postponed from 09/29 (Other Medical Reasons) Start: 08-04-2023 End: 08-04-2023 Patient encounter procedure 08/04/2023 8:40 AM EDT Office Visit [facility] [address] [place] [phone] Kaila Goldstein NP [address] [place] [phone] [facility] Start: 06-24-2023 End: 06-24-2024 CT Chest WO contrast CT chest wo IV contrast Imaging Routine Multiple lung nodules Expected: 06/24/2023 (Approximate), Expires: 06/24/2024 [facility] Work Phone: Comment on above: Expected: 06/24/2023 (Approximate), Expires: 06/24/2024 Start: 05-18-2023 Advance Directive Discussion Advance Directive Discussion [facility] Start: 05-18-2023 [facility] Start: 01-16-2023 Covid-19 Vaccine ( season) Covid-19 Vaccine ( season) [facility] Start: 01-16-2023 Influenza vaccination Influenza Vacc ine (#1) [facility] Start: 05-18-2022 Advance Directive Discussion Advance Directive Discussion [facility] Start: 05-18-2022 [facility] Start: 11-02-2021 Screening for malign ant neoplasm of colon [facility] Start: 2021 Bone Density Screening Bone Density Screening [facility] Start: 2021 Pneumococcal Vaccine : 65+ (1 - PCV) Pneumococcal Vaccine: 65+ (1 - PCV) [facility] Start: 2021 Screening for osteoporosis Bone Density Screening [facility] Start: 2016 RSV Vaccine (1 - 1-d ose 60+ series) RSV Vaccine (1 - 1-dose 60+ series) [facility] Start: 2006 Shingrix Vaccine (1 of 2) Shingrix Vaccine (1 of 2) [facility] Start: 2001 Cologuard (FIT-DNA) Cologuard (FIT-D NA) [facility] Start: 2001 Colonoscopy Colonoscopy [facility] Start: 2001 Colorectal Cancer Screening Colorectal Cancer Screening [facility] Start: [address] Colonography [facility] Start: 2001 Diabetes Screening Diabetes Screenin g [facility] Start: 2001 Fecal Occult Blood Fecal Occult Bloo d [facility] Start: 2001 Lipid 1996 panel - S norma or Plasma Lipid Screening [facility] Start: 2001 Lipid panel Lipid Screening [facility] Start: 2001 Screening for malign ant neoplasm of colon [facility] Start: 2001 Sigmoidoscopy Sigmoidoscopy [facility] Start: 1996 Mammography Mammogram Screening [facility] Start: 1996 Screening for malign ant neoplasm of breast Mammogram Screening [facility] Start: 09-30-1975 Urine microalbumin profile DTaP,Tdap,Td Vaccine (1 - Tdap) [facility] Start: 1974 Annual PCP Team Inspector Advanced [employer]posite michelle Disease Visit Annual PCP Team Chronic Disease Visit [facility] Start: 1974 BP Controlled (<130/80) BP Controlle d (<130/80) [facility] Start: 1974 Hepatitis C Screening Hepatitis C [facility] Start: 1974 Hepatitis C screening Hepatitis C [facility] Start: 1962 Pneumococcal Vaccine : 65+ (1 of 2 - PCV) Pneumococcal Vaccine: 65+ (1 of 2 - PCV) [facility] Start: 04-01-1957 Covid-19 Vaccine (#1) Covid-19 Vacci ne (#1) [facility] Start: 1956 Hemoglobin A1c measurement Diabetes: Hemoglobin A1C [facility] Start: 1956 Screening for malign ant neoplasm of colon [facility] End: 04-29-2024 Screening colonoscopy COLONOSCOPY SCREENING Endoscopy Routine History of colon polyps 1 Occurrences starting 04/29/2023 until 04/29/2024 [facility] Work Phone: Comment on above: 1 Occurrences starti ng 04/29/2023 until 04/29/2024 SURGICAL PATHOLOGY [facility] Work Phone: Comment on above: Release Upon Orderin g for 1 Occurrences starting 06/18/2023, 1 completed [facility] Immunizations Immunization Date Immunization Notes Care Provider Fa [facility] 11-10-2022 zoster vaccine recombinant Kaila Goldstein INVENTORY TAKER Work Phone: [facility] 05-21-2022 zoster vaccine recombinant Kaila Goldstein INVENTORY TAKER Work Phone: [facility] Payers Date Payer Category Payer Medicare [id number] 2023 Self-pay 2022 Medicare (Managed Care) [place] [employer] [facility] [id number] 2022 Unknown [place] [employer] D [employer] Sun-eee [id number] 2022-Present [address] [place] [id number] 2021 Medicare [id number] 2020 Unknown [id number] 1959 Medicare [id number] 1956 Unknown [id number]. 647 1956 Unknown [id number] [id number]. 647 1956 Unknown [id number] [id number]. 647 1956 Unknown [id number] [id number]. 647 1956 Unknown [id number] [id number]. 593 1956 Unknown [id number] [id number]. 593 1956 Unknown [id number] [id number]. 593 1956 Unknown [id number] [id number]. 1259 1956 Unknown [id number] [id number]. 1259 1956 Unknown [id number] [id number]. 1259 Unknown [id number] Unknown [id number]. 531 Social History Date Type Detail Facility Tobacco smoking stat [facility] Unknown if ever smoked [facility] Work Phone: Start: 1955 Sex Assigned At Female [facility] Tobacco smoking stat [facility] Tobacco smoking consumption unknown [facility] Start: 1955 Sex Assigned At Not on file [facility] Start: 04-29-2023 End: 12-22-2023 Gender identity Not on file [facility] Start: 04-29-2023 End: 05-03-2023 Tobacco smoking status NHIS Ex-smoker [facility] Start: 05-18-1975 End: 05-18-2007 History of tobacco use Current smoker [facility] Start: 05-18-1975 End: 05-18-2007 History of tobacco use Cigarette Smoker [facility] Start: 04-29-2023 End: 12-22-2023 Cigarettes smoked current (pack per day) - Reported 1.5 [facility] Start: 04-29-2023 Tobacco use and exposure Smokeless tobacco non-user [facility] Start: 07-08-2023 National Score (1-10 0), lower number is lower risk 91 [facility] Start: 05-04-2023 End: 12-22-2023 Alcohol intake Ex-drinker (finding) [facility] Start: 05-03-2023 Tobacco Comment Last smoked 10-15 ye ars [facility] Start: 05-03-2023 Alcohol Comment caffeine:soda [facility] Start: 07-08-2023 Gender identity Identifies as female gender (finding) [facility] Medical Equipment Procedure Code Equipment Code Equipment Origin al Text Equipment Identifier Dates Use as instructed [id number] Start: 05-22-2023 End: 05-21-2024 1 each 3 (three) times a day as needed (3 times daily prn) [id number] Start: 05-22-2023 1 each by Other route Daily [id number] Start: 10-19-2023 End: 01-27-2024 Use once a day [id number] Start: 05-12-2024 Clinical Notes 04-01-2020 to 05-24-2024 Telephone Encounter - Kaila Goldstein NP - 04/08/2024 6:33 PM ESTTelephone Encounter - Kaila Goldstein NP - 04/08/2024 6:33 PM Macho Goldstein NP - 06/24/2023 10:52 AM ESTPatient Instructions Note Date & Type Note Facility 05-24-2024 Note Patient here for 6 m o follow up afib, hypertension, and hyperlipidemia. Dr. Dumont switched her from metoprolol to carvedilol at last visit in November 2023 for better BP control. No recent labs, but has upcoming labs for Medicare wellness with PCP. She denies chest pain, SOB, and bleeding on Eliquis. She has been compliant with CPAP therapy. Palpitations are infrequent and no more than usual for her. Review of Systems Cardiovascular: Positive for leg swelling (minimal, resolves by morning) and palpitations ( once in awhile ). All other systems reviewed and are negative. [facility] 05-24-2024 Note Cardiovascular Medic [facility] SUBJECTIVE Chief Complaint Patient presents with Atrial Fibrillation Hypertension Hyperlipidemia Hortensia Bates is a 68 y.o. female here for follow-up. HPI PMHx: a.fib s/p ablation 2020, HTN, HLD Patient here for 6 mo follow up afib, hypertension, and hyperlipidemia. Dr. Dumont switched her from metoprolol to carvedilol at last visit in November 2023 for better BP control. No recent labs, but has upcoming labs for Medicare wellness with PCP. She denies chest pain, SOB, and bleeding on Eliquis. She has been compliant with CPAP therapy. Palpitations are infrequent and no more than usual for her. She has been doing well from a cardiac standpoint. She notes her BP has been much better. Patient Active Problem List Diagnosis Palpitations Persistent atrial fibrillation (CMS/HCC) Hyperlipidemia Hypertension Abnormal mammogram Arrhythmia Gout History of tobacco abuse Hypothyroidism Joint pain Multiple lung nodules Obesity, morbid (CMS/HCC) Pain, foot, right, chronic Panic attacks Primary osteoarthritis, right ankle and foot Sleep apnea, obstructive Type 2 diabetes mellitus (CMS/HCC) Pre-operative cardiovascular examination Asymptomatic microscopic hematuria Class 3 obesity Acute bacterial conjunctivitis Acute cystitis without hematuria Past Medical History: Diagnosis Date Abnormal ECG Arrhythmia Atrial fibrillation (CMS/HCC) Hyperlipidemia Hypertension Sleep apnea Family History Problem Relation Name Age of Onset No Known Problems Mother No Known Problems Father Social History Tobacco Use Smoking status: Former Current packs/day: 0.00 Types: Cigarettes Quit date: 05/18/2007 Years since quittin.0 Smokeless tobacco: Never Substance Use Topics Alcohol use: Not Currently Allergies Allergen Reactions Thiazides ROS Cardiovascular: Positive for leg swelling (minimal, resolves by morning) and palpitations ( once in awhile ). All other systems reviewed and are negative. OBJECTIVE Visit Vitals BP 126/80 (BP Location: Right arm, Patient Position: Sitting) Pulse 70 Ht 1.727 m (5' 8 ) Wt (!) 146 kg (322 lb) SpO2 95% BMI 48.96 kg/m??? Smoking Status Former BSA 2.65 m??? Medications: Current Outpatient Medications: allopurinol (Zyloprim) 100 mg tablet, allopurinol 100 mg tablet TAKE 1 TABLET BY MOUTH EVERY DAY, Disp: , Rfl: apixaban (Eliquis) 5 mg tablet, Take 1 tablet (5 mg) by mouth two times daily., Disp: 60 tablet, Rfl: 11 atorvastatin (Lipitor) 10 mg tablet, atorvastatin 10 mg tablet TAKE 1 TABLET BY MOUTH EVERY DAY IN THE EVENING, Disp: , Rfl: calcium 500 mg calcium (1,250 mg) tablet, Take 1 tablet by mouth in the morning., Disp: , Rfl: carvedilol (Coreg) 6.25 mg tablet, Take 1 tablet (6.25 mg) by mouth with breakfast and with evening meal. STOP METOPROLOL, Disp: 180 tablet, Rfl: 3 levothyroxine (Synthroid, Levoxyl) 100 mcg tablet, levothyroxine [...] mouth in the morning., Disp: , Rfl: spironolactone (Aldactone) 25 mg tablet, TAKE 1 TABLET BY MOUTH EVERY DAY IN THE MORNING, Disp: 90 tablet, Rfl: 3 Physical Exam Vitals reviewed. Constitutional: Appearance: Normal appearance. She is obese. HENT: Head: Normocephalic and atraumatic. Right Ear: External ear normal. Left Ear: External ear normal. Eyes: Extraocular Movements: Extraocular movements intact. Conjunctiva/sclera: Conjunctivae normal. Pupils: Pupils are equal, round, and reactive to light. Neck: Vascular: No carotid bruit. Cardiovascular: Rate and Rhythm: Normal rate and regular rhythm. Pulses: Normal pulses. Heart sounds: Normal heart sounds. Pulmonary: Effort: Pulmonary effort is normal. Breath sounds: Normal breath sounds. Abdominal: General: Bowel sounds are normal. Palpations: Abdomen is soft. Musculoskeletal: Cervical back: Neck supple. Right lower leg: No edema. Left lower leg: No edema. Skin: General: Skin is warm and dry. Neurological: General: No focal deficit present. Mental Status: She is alert and oriented to person, place, and time. Psychiatric: Mood and Affect: Mood normal. Behavior: Behavior normal. Thought Content: Thought content normal. Judgment: Judgment normal. Labs: Legacy Encounter on 11/02/2020 Component Date Value Ref Range Status Glucose POC 11/02/2020 90 70 - 100 mg/dL Final No results found for: EXTCMP , BMPR1A , CBCDIF , BNP , LASAP , RED 08/19/2023 Hgb 13.3, plt 300 Cr 0.97, BUN 19, K 4.1, Na 140, eGFR 57, AST 16, ALT 26 Chol 151, trig 105, HDL 47, LDL 83 TSH 3.583, Free T4 0.99 05/15/23 Rosemarie (more content not included)... [facility] 04-08-2024 Telephone encounter Note Pt contacts provider with c/o pink eye symptoms, requesting atb be sent in. Good hand washing, and if not better after a few days contact office, if acute eye pain or blurry vision go to ER [facility] 04-08-2024 Miscellaneous Notes Pt contacts provider with c/o pink eye symptoms, requesting atb be sent in. Good hand washing, and if not better after a few days contact office, if acute eye pain or blurry vision go to ER documented in this encounter [facility] 11-17-2023 Note Cardiology Follow Up Progress Note [...] provided. Patient v (more content not included)... [facility] 06-24-2023 History of Presen t illness Narrative Due for fu CT chest 3 month for lung nodules documented in this encounter [facility] 06-23-2023 Miscellaneous Notes Recall [...] yrs. Thanks cl documented in this encounter [facility] 06-18-2023 History and physical note HISTORY [...] Harleen Macdonald DO documented in this encounter [facility] 04-29-2023 Note HNO ID: [id number] Author: Harleen Macdonald DO Service: ? Author Type: Physician Type: Progress Notes Filed: 04/29/2023 12:49 PM Note Text: Chief Compliant: Consultation requested by Dr. Kaila Goldstein, [employer].SENIOR NETWORK ENGINEER for an opinion regarding hx of colon [...] other GI malignancy. No records available in [email or web address] or [employer] regarding this office visit. ALLERGIES Allergen Reactions [...] from her prior colonoscopy -schedule colonoscopy at [place]. 2 day bowel p (more content not included)... [facility] 04-29-2023 History of Presen t illness Narrative Chief Compliant: Consultation requested by Dr. Kaila Goldstein, [employer].SENIOR NETWORK ENGINEER for an opinion regarding hx of colon [...] other GI malignancy. No records available in [email or web address] or [employer] regarding this office visit. ALLERGIES Allergen Reactions [...] from her prior colonoscopy -schedule colonoscopy at [place]. 2 day bowel prep. Procedure/risks were discussed with the patient in great detail including but not limited to the risk of sedation, bleeding, perforation, infection, and missed lesions. Patient agreed to proceed. -fiber rich diet Harleen Macdonald DO Follow Up: No follow-ups on file. documented in this encounter [facility] 04-29-2023 Instructions Harleen Macdonald DO - 04/29/2023 [...] If you do not have a responsible boat driver (family member or friend) with you to take you home, your exam cannot be done with sedation and will be cancelled. Please bring a list of all of your current medications, including any Dkqy-llx-Eatmkjm medications with you. Medications If you take [...] exam. 2 04/2019 documented in this encounter [facility] 04-21-2023 Miscellaneous Notes Pt's VM is full and there is no active MC Cannot inform pt 05/28 appt w/Kristel was canceled If pt calls back an attempt was made to contact her Frandy Álvarez 04/21/23 documented in this encounter [facility] 04-23-2020 Note MR#: [id number] [facility] Pt. Name: Jeremy Batesyarelis Berry Admitted: 04/15/2020 Discharged: 04/23/2020 Date of : [...] to the patient being on anticoagulation and btoffyzk-pi-knramp sigmoid diverticulosis. Subsequently, pathology report came back [...] snare measured 3 mm and 5 mm. Oxeskitl-ht-dhjrqc sigmoid diverticulosis. Again, the patient was admitted [...] Mccollum MD Date Trans: 04/23/2020 02:52 P/mmo [id number] [facility] 04-01-2020 Note MR#: [id number] [facility] Pt. Name: Hortensia Bates Admitted: 03/29/2020 Discharged: [...] Gonzalez MD Date Trans: 04/01/2020 12:25 P/mmo [id number] [facility] Evaluation note No assessment inform ation available [facility] Work Phone: Evaluation note Diagnosis History of colon polyps- Primary Personal history of colonic polyps [facility] Diagnosis Chronic atrial fibrillation (HCC)- Primary Atrial fibrillation History of colon polyps Personal history of colonic polyps Primary hypertension Unspecified essential hypertension Class 3 obesity (HCC) [facility] Diagnosis Multiple lung nodules- Primary Other diseases of lung, not elsewhere classified documented in this encounter [facility] HealthcareEvaluation note* Diagnosis Type 2 diabetes mellitus without complication, without long-term current use of insulin (CMS/HCC)- Primary Obesity, morbid (CMS/HCC) Morbid obesity Atrial fibrillation, unspecified type (CMS/HCC) Sleep apnea, obstructive Obstructive sleep apnea (adult) (pediatric) Primary hypertension (CMS/HCC) Unspecified essential hypertension Type 2 diabetes mellitus without complication, without long-term current use of insulin (CMS/HCC)- Primary Sleep apnea, obstructive Obstructive sleep apnea (adult) (pediatric) Primary hypertension (CMS/HCC) Unspecified essential hypertension Asymptomatic microscopic hematuria Obesity, morbid ([facility]/HCC) Morbid obesity Encounter for subsequent annual wellness visit (AWV) in Medicare patient- Primary Morbid (severe) obesity due to excess calories ([facility]) Body mass index (BMI) 45.0-49.9, adult (CMS/[facility]) Sleep apnea, obstructive Obstructive sleep apnea (adult) (pediatric) Atrial fibrillation, unspecified type (CMS/HCC) Primary hypertension ([facility]/HCC) Unspecified essential hypertension Type 2 diabetes mellitus without complication, without long-term current use of insulin ([facility]) Asymptomatic microscopic hematuria Hypothyroidism, unspecified type ([facility]) Mixed hyperlipidemia ([facility]) Mixed hyperlipidemia documented in this encounter [facility] HealthcareEvaluation note* Diagnosis Type 2 diabetes mellitus without complication, without long-term current use of insulin ([facility])- Primary Obesity, morbid ([facility]) Morbid obesity Atrial fibrillation, unspecified type ([facility]/HCC) Sleep apnea, obstructive Obstructive sleep apnea (adult) (pediatric) Primary hypertension ([facility]/HCC) Unspecified essential hypertension Type 2 diabetes mellitus without complication, without long-term current use of insulin ([facility])- Primary Sleep apnea, obstructive Obstructive sleep apnea (adult) (pediatric) Primary hypertension ([facility]/HCC) Unspecified essential hypertension Asymptomatic microscopic hematuria Obesity, morbid ([facility]) Morbid obesity Encounter for subsequent annual wellness visit (AWV) in Medicare patient- Primary Morbid (severe) obesity due to excess calories ([facility]) Body mass index (BMI) 45.0-49.9, adult (CMS/HCC) Sleep apnea, obstructive Obstructive sleep apnea (adult) (pediatric) Atrial fibrillation, unspecified type (CMS/HCC) Primary hypertension ([facility]/HCC) Unspecified essential hypertension Type 2 diabetes mellitus without complication, without long-term current use of insulin ([facility]) Asymptomatic microscopic hematuria Hypothyroidism, unspecified type ([facility]) Acute bacterial conjunctivitis, unspecified laterality- Primary documented in this encounter [facility]* Diagnosis Acute cystitis without hematuria- Primary documented in this encounter [facility] HealthcareEvaluation note* Diagnosis Mixed hyperlipidemia ([facility]) Mixed hyperlipidemia Hypothyroidism, unspecified type (CMS/HCC) Primary hypertension ([facility]) Unspecified essential hypertension Type 2 diabetes mellitus without complication, without long-term current use of insulin ([facility]) Gout, unspecified documented in this encounter [facility] HealthcareEvaluation note* Diagnosis Primary hypertension ([facility]) Unspecified essential hypertension documented in this encounter [facility] HealthcareEvaluation note* Diagnosis Type 2 diabetes mellitus without complication, without long-term current use of insulin ([facility])- Primary Obesity, morbid ([facility]) Morbid obesity Atrial fibrillation, unspecified type ([facility]) Sleep apnea, obstructive Obstructive sleep apnea (adult) (pediatric) Primary hypertension ([facility]/HCC) Unspecified essential hypertension Type 2 diabetes mellitus without complication, without long-term current use of insulin ([facility])- Primary Sleep apnea, obstructive Obstructive sleep apnea (adult) (pediatric) Primary hypertension ([facility]) Unspecified essential hypertension Asymptomatic microscopic hematuria Obesity, morbid ([facility]) Morbid obesity Encounter for subsequent annual wellness visit (AWV) in Medicare patient- Primary Morbid (severe) obesity due to excess calories ([facility]) Body mass index (BMI) 45.0-49.9, adult ([facility]) Sleep apnea, obstructive Obstructive sleep apnea (adult) (pediatric) Atrial fibrillation, unspecified type ([facility]) Primary hypertension ([facility]/HCC) Unspecified essential hypertension Type 2 diabetes mellitus without complication, without long-term current use of insulin ([facility]) Asymptomatic microscopic hematuria Hypothyroidism, unspecified type ([facility]) Type 2 diabetes mellitus without complication, without long-term current use of insulin ([facility]) documented in this encounter [facility] HealthcareEvaluation note* Diagnosis Type 2 diabetes mellitus without complication, without long-term current use of insulin ([facility])- Primary Obesity, morbid ([facility]) Morbid obesity Atrial fibrillation, unspecified type ([facility]) Sleep apnea, obstructive Obstructive sleep apnea (adult) (pediatric) Primary hypertension ([facility]/HCC) Unspecified essential hypertension Type 2 diabetes mellitus without complication, without long-term current use of insulin ([facility])- Primary Sleep apnea, obstructive Obstructive sleep apnea (adult) (pediatric) Primary hypertension ([facility]/HCC) Unspecified essential hypertension Asymptomatic microscopic hematuria Obesity, morbid ([facility]) Morbid obesity Encounter for subsequent annual wellness visit (AWV) in Medicare patient- Primary Morbid (severe) obesity due to excess calories ([facility]) Body mass index (BMI) 45.0-49.9, adult ([facility]) Sleep apnea, obstructive Obstructive sleep apnea (adult) (pediatric) Atrial fibrillation, unspecified type ([facility]/HCC) Primary hypertension ([facility]/HCC) Unspecified essential hypertension Type 2 diabetes mellitus without complication, without long-term current use of insulin ([facility]/HCC) Asymptomatic microscopic hematuria Hypothyroidism, unspecified type (CMS/HCC) Hypothyroidism, unspecified type ([facility]/HCC) Gout, unspecified Type 2 diabetes mellitus without complication, without long-term current use of insulin ([facility]) documented in this encounter [facility] for referral (narrative)* Outpatient Procedure (Routine) - Pending Review Specialty Diagnoses / Procedures Referred By Masoud simms Referred To Contact [facility] Diagnoses History of colon polyps Procedures COLONOSCOPY SCREENING COLONOSCOPY FLX DX W/[place] [address] [place] [address] [address] Referral ID Status Reason Start Date Expiration Date Visits Requested Visits Authorized [id number] Pending Review Auto-Generat ed Referral 3 04/29/2024 1 1 [facility] for referral (narrative)* Outpatient Procedure (Routine) - Closed Specialty Diagnoses / Procedures Referred By Masoud simms Referred To Contact [facility] Diagnoses History of colon polyps Procedures COLONOSCOPY SCREENING COLONOSCOPY FLX DX W/[place] [address] [place] [address] [address] Referral ID Status Reason Start Date Expiration Date V isits Requested Visits Authorized [id number] Closed Auto-Generate d Referral 06/05/2023 05/17/2024 1 1 [facility] for visit Narrative* Outpatient Procedure (Routine) - Closed Specialty Diagnoses / Procedures Referred By Contkeyur t Referred To Contact [facility] Diagnoses History of colon polyps Procedures COLONOSCOPY SCREENING COLONOSCOPY FLX DX W/COLLJ SPEC WHEN PFRMD [place] [address] [place] [address] [facility] [address] [place] [address] Referral ID Status Reason Start Date Expiration Date V isits Requested Visits Authorized [id number] Closed Auto-Generate d Referral 06/05/2023 05/17/2024 1 1 [facility] Summary Purpose Family History No Family [...] IV contrast Kaila Goldstein, ANA [address] [place] [address] Referral ID Status Reason Start Date Expiration Date V isits Requested Visits Authorized [id number] Authorized 06/24/2023 12/21/2023 1 1 Additional Source Comments INFORMATION SOURCE (unrecogn ized section and content) DATE CREATED AUTHOR 11/07/2020 [facility] DATE CREATED AUTHOR AUTHOR'S ORGANIZ ATION 09/19/2022 [facility] DATE CREATED AUTHOR AUTHOR'S ORGANIZ ATION 03/15/2023 [facility] DATE CREATED AUTHOR AUTHOR'S ORGANIZ ATION 04/11/2023 [facility] DATE CREATED AUTHOR AUTHOR'S ORGANIZ ATION 06/22/2023 [facility] DATE CREATED AUTHOR AUTHOR'S ORGANIZ ATION 06/24/2023 [facility] DATE CREATED AUTHOR AUTHOR'S ORGANIZ ATION 12/24/2023 [facility] DATE CREATED AUTHOR AUTHOR'S ORGANIZ ATION 08/05/2024 [facility] Care Teams (unrecognized sec tion and content) Team Status: Active Member Role Status Dates Kaila Goldstein Primary Care Provider Active Team Status: Inactive Member Role Status Dates Kaila Goldstein Primary Care Provider, Attending Provi [email or web address] Active Vocational Nursing Instructor Relationship Specialty Start Date End Date Kaila Goldstein SENIOR NETWORK ENGINEER [address] [place] [address] PCP - General Family Medicine 03/24/23 Vocational Nursing Instructor Relationship Specialty Start Date End Date Kaila Goldstein CNP [address] [place] [address] PCP - General Family Medicine 03/24/23 Vocational Nursing Instructor Relationship Specialty Start Date End Date Kaila Goldstein CNP [address] [place] [address] PCP - General Family Medicine 03/24/23 Vocational Nursing Instructor Relationship Specialty Start Date End Date Kaila Goldstein SENIOR NETWORK ENGINEER [address] [place] [address] PCP - General Family Medicine 03/24/23 Vocational Nursing Instructor Relationship Specialty Start Date End Date Quinn Antunez MD PCP - General Family Medicine 12/08/22 Quinn Antunez MD [address] [place] [phone] PCP - [facility]oted 02/15/23 Kaila Goldstein NP [address] [place] [phone] Referring Physician Nurse Practitioner 12/08/22 Vocational Nursing Instructor Relationship Specialty Start Date End Date Quinn Antunez MD [address] [place] [address] PCP - [facility] 05/18/22 Quinn Antunez MD [address] [place] [address] PCP - General Family Medicine 08/26/23 Kaila Goldstein NP Referring Physician Nurse Practitioner 12/08/22 Kaila Goldstein NP [address] [place] [address] Nurse Practitioner Family Medicine 08/26/23 Vocational Nursing Instructor Relationship Specialty Start Date End Date Quinn Antunez MD [address] [place] [phone] PCP - [facility] 05/18/22 Quinn Antunez MD [address] [place] [phone] PCP - General Family Medicine 08/26/23 Kaila Goldstein NP Referring Physician Nurse Practitioner 12/08/22 Kaila Goldstein NP [address] [place] [address] Nurse Practitioner Family Medicine 08/26/23 Vocational Nursing Instructor Relationship Specialty Start Date End Date Quinn Antunez MD [address] [place] [address] PCP - [facility]oted 05/18/22 Quinn Antunez MD [address] [place] [address] PCP - General Family Medicine 08/26/23 Kaila Goldstein NP Referring Physician Nurse Practitioner 12/08/22 Kaila Goldstein NP [address] [place] [address] Nurse Practitioner Family Medicine 08/26/23 Vocational Nursing Instructor Relationship Specialty Start Date End Date Quinn Antunez MD [address] [place] [address] PCP - [facility]oted 05/18/22 Quinn Antunez MD [address] [place] [phone] PCP - General Family Medicine 08/26/23 Kaila Goldstein NP Referring Physician Nurse Practitioner 12/08/22 Kaila Goldstein NP [address] [place] [phone] Nurse Practitioner Family Medicine 08/26/23 Vocational Nursing Instructor Relationship Specialty Start Date End Date Quinn Antunez MD [address] [place] [phone] PCP - [facility]oted 05/18/22 05/17/24 Quinn Antunez MD [address] [place] [phone] PCP - General Family Medicine 08/26/23 Kaila Goldstein NP Referring Physician Nurse Practitioner 12/08/22 Kaila Goldstein NP [address] [place] [id number] Nurse Practitioner Family Medicine 08/26/23 Vocational Nursing Instructor Relationship Specialty Start Date End Date Quinn Antunez MD [address] [place] [id number] PCP - General Family Medicine 08/26/23 Kaila Goldstein NP Referring Physician Nurse Practitioner 12/08/22 Kaila Goldstein NP [address] [place] [id number] Nurse Practitioner Family Medicine 08/26/23 Goals (unrecognized section and content) Goals may be documented in a n alternate section Source Comments (unrecognize d section and content) In the event this informatio n is protected by the Federal Confidentiality of Alcohol and Drug Abuse Patient Records regulations: The Federal rules restrict any use of the information to criminally investigate or prosecute any alcohol or drug abuse patient.[facility] the event this information is protected by the Federal Confidentiality of Alcohol and Drug Abuse Patient Records regulations: The Federal rules restrict any use of the information to criminally investigate or prosecute any alcohol or drug abuse patient.[facility] the event this information is protected by the Federal Confidentiality of Alcohol and Drug Abuse Patient Records regulations: The Federal rules restrict any use of the information to criminally investigate or prosecute any alcohol or drug abuse patient.[facility] the event this information is protected by the Federal Confidentiality of Alcohol and Drug Abuse Patient Records regulations: The Federal rules restrict any use of the information to criminally investigate or prosecute any alcohol or drug abuse patient.[facility] Reason for Visit (unrecogniz ed section and content) Reason Comments Appointment Reason Comments New Patient Colonoscopy with his tory of natacha Reason Comments Results Reason Onset Date Comments Med Refill 03/02/2024 Reason Comments Med Refill Reason Onset Date Comments Med Refill 02/12/2024 Inactive Administered Medications - up to 3 [...] BE BASED ON THE PRIMARY CLINICAL RECORDS. [employer] provides no warranty or guarantee of the accuracy or completeness of information in this document.
[2024-10-17 07:36] LABS: Basophils Absolute Auto 0.1 10^3/uL (0.0-0.1); Basophils Percent Auto 0.7 % (0.2-2.0); Eosinophils Absolute Auto 0.3 10^3/uL (0.0-0.7); Eosinophils Percent Auto 2.8 % (0.9-7.0); Hemoglobin 13.9 g/dL (12.0-16.0); Immature Granulocytes Abs Auto 0.03 10^3/uL (0.00-0.03); Immature Granulocytes Pct Auto 0.3 % (0.0-0.5); Lymphocytes Absolute Auto 3.4 10^3/uL (1.2-3.8); Lymphocytes Percent Auto 33.8 % (20.5-60.0); Mean Corpuscular HGB Conc 32.3 g/dL (29.9-35.2); Mean Corpuscular Hemoglobin 28.8 pg (26.7-34.0); Mean Platelet Volume 9.9 fL (9.5-13.5); Monocytes Absolute Auto 0.6 10^3/uL (0.3-0.8); Monocytes Percent Auto 6.2 % (1.7-12.0); Neutrophils Absolute Auto 5.6 10^3/uL (1.4-6.5); Neutrophils Percent Auto 56.2 % (43.0-75.0); Platelet Count 315 10^3/uL (150-450); Red Blood Count 4.83 10^6/uL (4.20-5.40); Red Cell Distribution Width 14.3 % (11.0-15.0)
[2024-10-17 08:52] LABS: Bilirubin Urine NEGATIVE (NEGATIVE); Blood Urine NEGATIVE (NEGATIVE); Clarity Urine CLEAR (CLEAR); Color Urine LT. YELLOW (YELLOW); Glucose Urine UA NEGATIVE (NEGATIVE); Ketones Urine NEGATIVE (NEGATIVE); Leukocyte Esterase Urine NEGATIVE (NEGATIVE); Nitrite Urine NEGATIVE (NEGATIVE); Protein Urine NEGATIVE (NEG/TRACE); Urobilinogen Urine 0.2 EU/dL (0.2-1.0)
[2024-10-17 08:55] LABS: Estimated Average Glucose 134 mg/dL; Glycohemoglobin A1C 6.3 % (4.5-6.2)
[2024-10-17 08:57] LABS: Microalbumin Urine Random <1.3 mg/dL (<=30.0)
[2024-10-17 08:58] LABS: Urine Microscopic Indicated NO
[2024-10-17 09:11] LABS: Alanine Aminotransferase 28 U/L (14-59); Albumin Globulin Ratio 0.9; Albumin Level 3.6 g/dL (3.4-5.0); Alkaline Phosphatase 43 U/L (46-116); Anion Gap 13.7; Aspartate Amino Transferase 11 U/L (15-37); BUN Creatinine Ratio 19.4; Bilirubin Total 0.5 mg/dL (0.2-1.0); Calcium 8.9 mg/dL (8.5-10.1); Carbon Dioxide 27.4 mmol/L (21.0-32.0); Chloride 104 mmol/L (98-107); Chol HDL Ratio 3.9; Cholesterol 159 mg/dL (<=200); Estimated GFR (African America >60 (>=60 mL/min/1.73m^2); Estimated GFR (Non-African Ame 60 (>=60 mL/min/1.73m^2); Free T4 1.12 ng/dL (0.76-1.46); Globulin 3.9 g/dL; Glucose 127 mg/dL (74-106); HDL Cholesterol 41 mg/dL (40-60); LDL Cholesterol Calculated 95.2 mg/dL; Potassium 4.1 mmol/L (3.5-5.1); Sodium 141 mmol/L (136-145); Thyroid Stimulating Hormone 3.241 uIU/mL (0.358-3.740); Total Protein 7.5 g/dL (6.4-8.2); Triglycerides 114 mg/dL (<=150); Uric Acid 4.6 mg/dL (2.6-6.0); VLDL CHOLESTEROL 22.8 mg/dL
== END 2024-10-17 07:10 | disposition home or self-care (01) ==
LOC: LAB 07:12
PROVIDERS: PCP Nurse Practitioner; Visit Provider Nurse Practitioner
DX: E03.9 Hypothyroidism, unspecified (principal); I10 Essential (primary) hypertension; E11.9 Type 2 diabetes mellitus without complications; M10.9 Gout, unspecified; I48.91 Unspecified atrial fibrillation
CPT/HCPCS: 36415; 80053; 80061; 81003; 82043; 82570; 83036; 84439; 84443; 84550; 85025

== ENCOUNTER 2024-11-24 08:43 | Outpatient (OUT) | payer MEDICARE, SELFPAY ==
--- NOTE | 2024-11-24 08:55 | CT_ITS ---
The [address] [address] Patient Name: HORTENSIA BATES MRN: [id number] date: 1955 Sex: F Assigned Patient Location: [facility] Current Patient Location: [facility] Accession/Order Number: [id number] Exam Date: 11/24/2024 11:37 Report Date: 11/24/2024 11:51 At the request of: SACHA BRAXTON NP Procedure: CT lung screening low-dose LOW-DOSE SCREENING CHEST CT WITHOUT CONTRAST COMPARISON: 10/01/2023 CLINICAL DATA: 20 year history of tobacco use. Spiral axial low-dose images were obtained through the chest. Images were reviewed using both narrow and wide window settings. This CT exam was performed using one or more following dose reduction techniques: Automated exposure control, adjustment of the mA and/or kV according to patient size, or use of iterative reconstruction technique. The heart is within normal limits for size. There are bilateral pericardial fat pads. No pericardial fluid is noted. Minimal coronary disease is seen. The ascending aorta is ectatic with diameter approximately 4 cm. There is plaque at the aortic arch and proximal great vessels. No enlarged nodes are identified. The left thyroid lobe is larger than the right and there is heterogeneity. There is endplate spurring throughout the thoracic spine. There is no developing consolidation, pleural effusion or pneumothorax. There is redemonstration of 2 noncalcified nodules in close proximity within the right middle lobe adjacent to the minor fissure, larger measuring 7 mm. These may be intrapulmonary lymph nodes. There is also potential third on the sagittal image #106. A stable 6-7 mm nodule at the posterior medial left lower lobe is again seen. No new nodularity is noted. Limited cuts through the upper abdomen show no contributory findings. CT/CT lung screening low-dose IMPRESSION: STABLE NODULARITY. NO ACUTE FINDINGS. Lung RADS category 2 - benign Twelve-month low-dose CT follow-up suggested Impression dictated by: Cait Suarez M.D. 11/24/2024 11:51 AM Dictation Location: [place] [address] Electronically authenticated by: [id number] Y Date: 11/24/2024 11:51
--- NOTE | 2024-11-24 09:25 | MM_ITS ---
Patient Name: HORTENSIA BATES MR#: [id number] : 1955 Exam Date: 11/24/2024 Ordering Doctor: NYDIA BRAXTON CNP RADIOLOGY REPORT PROCEDURE: MM TOMOSYNTHESIS SCREENING BI COMPARISON: MM DIAGNOSTIC MAMMO UNILAT RT, 04/07/2023. MM TOMOSYNTHESIS SCREENING BI, 03/18/2023. INDICATIONS: screening for malignant neoplasm of breast Calculator Name NCI Breast Cancer Risk Assessment Tool 5 Year Breast Cancer Risk 1.50% Lifetime Breast Cancer Risk 5.00% Personal Breast Cancer No Personal Ovarian Cancer No Treatments None Family Cancers None LOCATION: [facility] BREAST COMPOSITION: There are scattered areas of fibroglandular density. FINDINGS: RIGHT BREAST: No significant suspicious finding. LEFT BREAST: No significant suspicious finding. DIAGNOSTIC CATEGORY 1--NEGATIVE. RECOMMENDATIONS: ROUTINE MAMMOGRAM AND CLINICAL EVALUATION IN 12 MONTHS. PLEASE NOTE: A NORMAL MAMMOGRAM DOES NOT EXCLUDE THE POSSIBILITY OF BREAST CANCER. A CLINICALLY SUSPICIOUS PALPABLE LUMP SHOULD BE BIOPSIED. Dictated by: Aaron Sue DO on 11/24/2024 at 13:36 Approved by: Aaron Sue DO on 11/24/2024 at 13:45
== END 2024-11-24 08:44 | disposition home or self-care (01) ==
LOC: MAMMO 08:43
PROVIDERS: PCP Nurse Practitioner; Visit Provider Nurse Practitioner
DX: Z12.31 Encounter for screening mammogram for malignant neoplasm of breast (principal); Z87.891 Personal history of nicotine dependence
CPT/HCPCS: 71271; 77063; 77067

== ENCOUNTER 2025-01-12 12:45 | Outpatient (OUT) | payer MEDICARE, SELFPAY ==
--- OUTSIDE RECORDS SUMMARY | 2025-01-12 12:56 | XMS_ITS | CCD ---
Author Organization [facility] Care Team Providers Care Back Up Worker Name Role Phone AICHHOLZ, KAILA Referring Unavailable AICHHOLZ, KAILA Primary Care Unavailable IA Procedure Practitioner Unavailab le ALASTAL, YASEEN Admitting Unavailable ALASTAL, YASEEN Attending Unavailable ALASTAL, YASEEN Surgeon Unavailable AICHHOLZ, KAILA Primary Care Unavailable AICHHOLZ, KAILA Referring Unavailable SULEIMAN SALAMANCA Admitting Unavailable SULEIMAN SALAMANCA Attending Unavailable SHANTHI, SARMED Admitting Unavailable SHANTHI, SARMED Attending Unavailable CHAY ARANGO Surgeon Unavailable AICHHOLZ, KAILA Primary Care Unavailable IA Procedure Practitioner Unavailab JUAN Souza Referring Unavailable SHANTHI, SARMED Surgeon Unavailable IA Procedure Practitioner Unavailab LULU Irizarry Referring Unavailable SHANTHI, SARMED Admitting Unavailable AICHHOLZ, KAILA Primary Care Unavailable MSIAEL MCCOLLUM Attending Unavailable IA Procedure Practitioner Unavailab vi CROCKERSTAL, YASEEN Surgeon Unavailable AICHHOLZ, CALL CENTER TRAINER KAILA Attending Unavailable AICHHOLZ, CALL CENTER TRAINER KAILA Consulting Unavailable AICHHOLZ, CALL CENTER TRAINER KAILA Primary Care Unavailable AICHHOLZ, CALL CENTER TRAINER KAILA Admitting Unavailable AICHHOLZ, CALL CENTER TRAINER KAILA Attending Unavailable AICHHOLZ, CALL CENTER TRAINER KAILA Consulting Unavailable AICHHOLZ, CALL CENTER TRAINER KAILA Primary Care Unavailable AICHHOLZ, CALL CENTER TRAINER KAILA Admitting Unavailable AICHHOLZ, CALL CENTER TRAINER KAILA Attending Unavailable AICHHOLZ, CALL CENTER TRAINER KAILA Consulting Unavailable AICHHOLZ, CALL CENTER TRAINER KAILA Primary Care Unavailable AICHHOLZ, CALL CENTER TRAINER KAILA Admitting Unavailable Aichliset, Kaila J Primary Care Provider Kaila Goldstein Attending Provider [phone] Kaila Goldstein Attending Unavailable Aichholz, Kaila J Primary Care Unavailable Kaila Goldstein Admitting Unavailable Angelita STAFFORD, Kaila Robert Primary Care Provider YANN KUHN Attending Unavailable KIALA GOLDSTEIN Primary Care Unavailable HARLEEN MACDONALD Referring Unavailable HARLEEN MACDONALD Attending Unavailable KAILA GOLDSTEIN Primary Care Unavailable Quinn Antunez MD Primary Care Provider Aicbrandon TREASURY MANAGEMENT SALES CONSULTANT, Kaila Unavailable Tulio GAONA, Quinn Unavailable Aichliset TREASURY MANAGEMENT SALES CONSULTANT, Kaila Unavailable Tulio GAONA, Quinn Unavailable Quinn Antunez MD Primary Care Provider [phone] Aicbrandon TREASURY MANAGEMENT SALES CONSULTANT, Kaila Unavailable Tulio GAONA, Quinn Unavailable Tulio GAONA, Quinn Unavailable KAILA GOLDSTEIN Attending Unavailable KAILA GOLDSTEIN Attending Unavailable KAROL TORRES Attending Unavailable MADDIE CALVO Attending Unavailable Allergies Allergy Classification Reported Allergen(s) Allergy Type Date of Onset Reaction(s) Facility Unclassified (4 sources) Thiazides; Translations: [THIAZIDES] Drug allergy (disorder) 01-05-20 13 [facility] (5 sources) Spironolactone; Translations: [SPIRONOLACTONE] Drug Allergy 04-29-20 23 [facility] (3 sources) Thiazides Drug Allergy 05-06-20 22 [facility] (19 sources) fexofenadine; Translations: [FEXOFENADINE HCL] Drug Allergy 05-06-20 22 [facility] (18 sources) hydroCHLOROthiazide Drug Allergy 05-04-20 23 [facility] (18 sources) Spironolactone Drug Allergy 05-01-20 23 [facility] (18 sources) Thiazide-Type Diuretics Drug Allergy 05-04-20 23 [facility] Medications Current Medications Medication Drug Class(es) Dates Sig (Normalized) Sig (Original) allopurinol 100 mg oral tablet (20 sources) Xanthine Oxidase Inhibitor Start: 07-11-2024 End: 04-09-2025 take 1 tablet by mouth once daily allopurinol (Zyloprim) 100 MG tablet Indications: Gout, unspecified Take 1 tablet (100 mg) by mouth Daily 90 tablet 1 01/09/2025 04/09/2025 Active Start: 10-31-2023 End: 04-18-2024 take 1 [...] mg / clavulanate 125 mg oral tablet (2 sources) Penicillin-class Antibacterial Start: End: take 1 tablet by mouth in the morning amoxicillin-clavul anate (Augmentin) 875-125 MG tablet Indications: Dog bite, initial encounter Take 1 tablet (875 mg) by mouth in the morning and 1 tablet (875 mg) before bedtime. Do all this for 10 days. 20 tablet 12/19/2024 12/29/2024 Active Start: 12-29-2023 End: 01-08-2024 take 1 tablet by mouth in the morning amoxicillin-clavulanate (Augmentin) 875-125 MG tablet Indications: Acute cystitis without hematuria Take 1 tablet (875 mg) by mouth in the morning and 1 tablet (875 mg) before bedtime. Do all this for 10 days. Take with food. 20 tablet 12/29/2023 01/08/2024 Active apixaban 5 mg oral tablet (20 sources) Factor Xa Inhibitor take 1 tablet by mouth in the morning apixaban (Eliquis) 5 MG tablet Take 5 mg by mouth in the morning and 5 mg before bedtime. Active Comment on above: Take 5 mg by mouth t wo times a day. atorvastatin 10 mg oral tablet (20 sources) HMG-CoA Reductase Inhibitor Start: End: take 1 tablet by mouth in the evening atorvastatin (Lipitor) 10 MG tablet Indications: Mixed hyperlipidemia Take 1 tablet (10 mg) by mouth [...] Suppl (Blood Glucose Monitor System) w/Device kit (18 sources) Start: 05-22-2023 Blood Glucose Monitoring Suppl (Blood Glucose Monitor System) w/Device kit Indications: Type 2 diabetes mellitus without complication, without long-term current use of insulin ([facility]) 1 kit 3 (three) times a day as needed (3 times daily prn) 1 kit 05/22/2023 Active Start: 05-22-2023 Blood Glucose Monitoring Suppl (Blood Glucose Monitor System) w/Device kit Indications: Type 2 diabetes mellitus without complication, without long-term current use of insulin 1 kit 3 (three) times a day [...] Active calcium carbonate 1500 mg oral tablet (18 sources) take 1 tablet by mouth in the morning calcium carbonate (Calcium 600) 1500 (600 Ca) MG tablet Take 1,500 mg by mouth in the morning and 1,500 mg in the evening. Take with meals. Active carvedilol 6.25 mg oral tablet (16 sources) alpha-Adrenergic Rosa, beta-Adrenergic Rosa Start: 11-17-19 End: 11-17-19 take 1 tablet by mouth in the morning carvedilol (Coreg) 6.25 MG tablet Take 6.25 mg by mouth in the morning and 6.25 mg in the evening. Take with meals. 11/17/2023 Active ciprofloxacin 500 mg oral tablet (1 source) Quinolone Antimicrobial Start: 01-06-20 End: 01-16-20 take 1 tablet by mouth in the morning ciprofloxacin (Cipro) 500 MG tablet Indications: Acute cystitis without hematuria Take 1 tablet (500 mg) by mouth in the morning and 1 tablet (500 mg) before bedtime. Do all this for 10 days. 20 tablet 01/06/2024 01/16/2024 Active isopropyl alcohol 0.7 ml/ml medicated pad (18 sources) Alcohol Swabs pa ds Active levothyroxine sodium 0.1 mg oral tablet (20 sources) l-Thyroxine Start: 01-19-20 End: 04-09-20 take 1 tablet by mouth before mealtime levothyroxine (Synthroid, Levoxyl) 100 MCG tablet Indications: Hypothyroidism, unspecified type Take 1 tablet (100 mcg) by mouth in the morning. Take before meals. 90 tablet 1 01/09/2025 04/09/2025 Active Start: 07-27-2023 take 1 tablet by [...] Sodium losartan potassium 50 mg oral tablet (20 sources) Angiotensin 2 Receptor Rosa Start: 4 End: 5 take 1 tablet by mouth once daily losartan (Cozaar) 50 MG tablet Indications: Primary hypertension Take 1 tablet (50 mg) by mouth Daily 90 tablet 1 11/09/2024 02/07/2025 Active Start: 08-27-2023 take 1 tablet by [...] Potassium metFORMIN hydrochloride 500 mg oral tablet (20 sources) Biguanide Start: End: take 1 tablet by mouth at mealtime metFORMIN (Glucophage) 500 MG tablet Indications: Type 2 diabetes mellitus without complication, without long-term current use of insulin (HCC) Take 1 tablet (500 mg) by mouth in the morning. Take with meals. 90 tablet 1 01/09/2025 04/09/2025 Active Start: 08-10-2023 take 1 tablet by [...] extended release oral tablet (4 sources) beta-Adrenergic Rosa take 1 tablet by mouth every twenty-four hours in the morning metoprolol succinate XL (Toprol-XL) 25 MG 24 hr tablet Take 25 mg by mouth in the morning. Do not crush or chew.. 0 Active Comment on above: Metoprolol Succinate Multiple Vitamins-Minerals (CENTRUM SILVER 50+MEN PO) (18 sources) Multiple Vitamins-Minerals (CENTRUM SILVER 50+MEN PO) Take by mouth Active Multiple Vitamin s-Minerals (CENTRUM SILVER 50+MEN PO) Take by mouth 0 Active polymyxin b 90711 unt/ml / trimethoprim 1 mg/ml ophthalmic solution (1 source) Dihydrofolate Reductase Inhibitor Antibacterial, Polymyxin-class Antibacterial Start: 04-08-2024 End: 04-18-2024 take 1 drop(s) into the eye(s) every four hours trimethoprim-polymyxin b (Polytrim) ophthalmic solution Indications: Acute bacterial conjunctivitis, unspecified laterality Administer 1 drop into affected eye(s) every 4 (four) hours for 10 days 10 mL 04/08/2024 04/18/2024 Active rosuvastatin calcium 5 mg oral tablet (9 sources) HMG-CoA Reductase Inhibitor Start: 09-22-2024 End: 01-03-2025 take 1 tablet by mouth once daily rosuvastatin (Crestor) 5 MG tablet Take 5 mg by mouth Daily 09/22/2024 Active Semaglutide,0.25 or 0.5MG/DOS, (Ozempic, 0.25 or 0.5 MG/DOSE,) 2 MG/3ML solution pen-injector (7 sources) Start: 11-02-2024 Semaglutide,0.25 or 0.5MG/DOS, (Ozempic, 0.25 or 0.5 MG/DOSE,) 2 MG/3ML solution pen-injector Indications: Atrial fibrillation, unspecified type (HCC) , Primary hypertension , Type 2 diabetes mellitus without complication, without long-term current use of insulin (HCC) , Mixed hyperlipidemia , Morbid (severe) obesity due to excess calories (CMS-HCC) Inject 0.25 mg under the skin every 7 (seven) days Take 0.25mg weekly for 4 weeks, then increase to 0.5mg weekly 3 mL 2 11/02/2024 Active Start: 11-02-2024 End: 12-02-2024 Semaglutide,0.25 or 0.5MG/DO S, (Ozempic, 0.25 or 0.5 MG/DOSE,) 2 MG/3ML solution pen-injector Indications: Atrial fibrillation, unspecified type (HCC) , Primary hypertension , Type 2 diabetes mellitus without complication, without long-term current use of insulin (HCC) , Mixed hyperlipidemia , Morbid (severe) obesity due to excess calories (CMS-HCC) Inject 0.25 mg under the skin every 7 (seven) days Take 0.25mg weekly for 4 weeks, then increase to 0.5mg weekly 3 mL 2 11/02/2024 12/02/2024 Active spironolactone 25 mg oral tablet (17 sources) Aldosterone Antagonist take 1 tablet by [...] Comment on above: Centrum polyethylene glycol 3350 070047 mg / potassium chloride 2970 mg / sodium bicarbonate 6740 mg / sodium chloride 5860 mg / sodium sulfate 14408 mg powder for oral solution (1 source) Osmotic Laxative Start: 04-29-2023 End: 04-29-2023 peg 3350-Electrolytes (GOLYTELY) 236-22.74-6.74 -5.86 gram suspension Take 4,000 mL by mouth one time only for 1 dose. 1 Each 0 04/29/2023 04/29/2023 Comment on above: Take 4,000 mL by madhu th one time only for 1 dose. Problems Active Problems Problem Classification Problem Date Documented Date Episodic/Chronic Anxiety disorders (18 sources) Panic attack; Translations: [Panic disorder [episodic paroxysmal anxiety]] Onset: 05-01-2023 05-01-2023 Chronic Cardiac dysrhythmias (20 sources) Chronic atrial fibrillation; Translations: [Chronic atrial fibrillation, unspecified] Onset: 05-01-2023 06-18-2023 Chronic Diabetes mellitus without complication (20 sources) Type 2 diabetes mellitus without complications; Translations: [Type 2 diabetes mellitus] Onset: 03-13-2022 Chronic Disorders of lipid metabolism (20 sources) Hyperlipidemia; Translations: [Hyperlipidemia, unspecified] Onset: 06-12-2023 06-18-2023 Chronic E Codes: Natural/environment (3 sources) Dog bite - wound; Translations: [Bitten by dog, initial encounter] Onset: 12-19-2024 12-19-2024 Episodic Essential hypertension (20 sources) Essential (primary) hypertension; Translations: [Essential hypertension] Onset: 09-18-2022 06-18-2023 Chronic Gout and other crystal arthropathies (20 sources) Gout, unspecified; Translations: [Gout] Onset: 03-16-2022 05-01-2023 Chronic Osteoarthritis (17 sources) Osteoarthritis of joint of right ankle [...] Chronic Other nutritional; endocrine; and metabolic disorders (20 sources) Obesity caused by energy imbalance; Translations: [Morbid (severe) obesity due to excess calories] Onset: 06-18-2023 12-22-2023 Chronic Other nutritional; endocrine; and metabolic disorders (19 sources) Body mass index 40+ - severely obese; Translations: [Body mass index (BMI) 45.0-49.9, adult] Onset: 12-22-2023 12-22-2023 Chronic Other screening for suspected conditions (not mental disorders or infectious disease) (20 sources) Mammography abnormal; Translations: [Other abnormal and inconclusive findings on diagnostic imaging of breast] Onset: 05-01-2023 05-01-2023 Episodic Residual codes; unclassified (20 sources) Obstructive sleep apnea syndrome; Translations: [Obstructive sleep apnea (adult) (pediatric)] Onset: 05-01-2023 05-01-2023 Chronic Residual codes; unclassified (2 sources) Obstructive sleep apnea (adult) (pediatric); Translations: [Obstructive sleep apnea (adult) (pediatric)] Onset: 12-12-2024 Chronic Residual codes; unclassified (2 sources) Localized edema; Translations: [Localized edema] Onset: 12-12-2024 Episodic Residual codes; unclassified (2 sources) Other specified postprocedural states; Translations: [Other specified postprocedural states] Onset: 12-12-2024 Episodic Screening and history of mental health and substance abuse codes (2 sources) Tobacco use and exposure - finding 11-02-2024 Chronic Thyroid disorders (20 sources) Hypothyroidism, unspecified; Translations: [Hypothyroidism] Onset: 09-15-2022 Chronic Unclassified (1 source) Chronic atrial fibrillation, unspecified; Translations: [Chronic atrial fibrillation (HCC)] Onset: 06-18-2023 Viral infection (1 source) COVID-19; Translations: [COVID-19] Onset: 05-04-2022 Past or Other Problems Problem Classification Problem Date Documented Da te Episodic/Chronic Fever of unknown origin (4 sources) Fever, unspecified; Translations: [FEVER UNSPECIFIED] Onset: 05-01-2022 Episodic Genitourinary symptoms and ill-defined conditions (19 sources) Asymptomatic microscopic hematuria; Translations: [Asymptomatic microscopic hematuria] Onset: 08-19-2023 08-19-2023 Episodic Inflammation; infection of eye (except that caused by tuberculosis or sexually transmitteddisease) (14 sources) Acute infectious conjunctivitis; Translations: [Unspecified acute conjunctivitis, unspecified eye] Onset: 04-08-2024 Resolved: 11-02-2024 04-08-2024 Episodic Malaise and fatigue (1 source) Other malaise; Translations: [OTHER MALAISE] Onset: 05-04-2022 Episodic Mood disorders (17 sources) Mood disorders Onset: 12-22-2023 12-22-2023 Other connective tissue disease (18 sources) Chronic pain of right foot; Translations: [Pain in right foot] Onset: 05-01-2023 05-01-2023 Episodic Other lower respiratory disease (20 sources) Multiple nodules of lung; Translations: [Other nonspecific abnormal finding of lung field] Onset: 05-01-2023 06-24-2023 Episodic Other non-traumatic joint disorders (18 sources) Joint pain; Translations: [Pain in unspecified joint] Onset: 05-01-2023 05-01-2023 Episodic Other nutritional; endocrine; and metabolic disorders (18 sources) Morbid obesity; Translations: [Morbid (severe) obesity due to excess calories] Onset: 05-04-2023 Resolved: 11-02-2024 05-04-2023 Chronic Screening and history of mental health and substance abuse codes (20 sources) Tobacco use and exposure - finding; Translations: [Personal history of nicotine dependence] Onset: 05-01-2023 05-01-2023 Episodic Urinary tract infections (18 sources) Acute cystitis; Translations: [Acute cystitis without hematuria] Onset: 12-29-2023 12-29-2023 Episodic Results Test Name Value Interpretation Reference Range Facility Office Visiton 12-12-2024 Follow-up visit [id number] Hortensia Bates 1955 F Date Provider Department Center 12/12/2024 KAROL GANT [facility] Family History Problem Relation Age of Onset No Known Problems Mother No Known Problems Father Family Status - Relation Status Age at Mother Alive Father Level of Service:71767 [place] OFFICE/OUTPATIENT ESTABLISHED MOD MDM 30 MIN Normal [facility] Abstracton 12-01-2024 Abstract [id number] Hortensia Bates 1955 F Date Provider Department Center 12/01/2024 KAROL GANT [facility] Family History Problem Relation Age of Onset No Known Problems Mother No Known Problems Father Family Status - Relation Status Age at Mother Father Normal [facility] CT LUNG SCREENING LOW DOSEon 11-24-[address] [place] [id number] Scan Report Signed Patient: HORTENSIA BATES MR#: [id number] : 1955 Acct:[id number] Age/Sex: 69 / F ADM Date: 11/24/24 Loc: MAMMO Attending Dr: Kaila Goldstein NP Ordering Physician: Kaila Goldstein NP Date of Service: 11/24/24 Procedure(s): CT lung screening low-dose Accession Number(s): [id number] cc: Kaila Goldstein NP [address] [address] Patient Name: HORTENSIA BATES MRN: [id number] date: 1955 Sex: F Assigned Patient Location: MAMMO Current Patient Location: MAMMO Accession/Order Number: [id number] Exam Date: 11/24/2024 11:37 Report Date: 11/24/2024 11:51 At the request of: KAILA GOLDSTEIN NP Procedure: CT lung screening low-dose LOW-DOSE SCREENING CHEST CT WITHOUT CONTRAST COMPARISON: 10/01/2023 CLINICAL DATA: 20 year history of tobacco use. Spiral axial low-dose images were obtained through the chest. Images were reviewed using both narrow and wide window settings. This CT exam was performed using one or more following dose reduction techniques: Automated exposure control, adjustment of the mA and/or kV according to patient size, or use of iterative reconstruction technique. The heart is within normal limits for size. There are bilateral pericardial fat pads. No pericardial fluid is noted. Minimal coronary disease is seen. The ascending aorta is ectatic with diameter approximately 4 cm. There is plaque at the aortic arch and proximal great vessels. No enlarged nodes are identified. The left thyroid lobe is larger than the right and there is heterogeneity. There is endplate spurring throughout the thoracic spine. There is no developing consolidation, pleural effusion or pneumothorax. There is redemonstration of 2 noncalcified nodules in close proximity within the right middle lobe adjacent to the minor fissure, larger measuring 7 mm. These may be intrapulmonary lymph nodes. There is also potential third on the sagittal image #106. A stable 6-7 mm nodule at the posterior medial left lower lobe is again seen. No new nodularity is noted. Limited cuts through the upper abdomen show no contributory findings. CT/CT lung screening low-dose IMPRESSION: STABLE NODULARITY. NO ACUTE FINDINGS. Lung RADS category 2 - benign Twelve-month low-dose CT follow-up suggested Impression dictated by: Cait Suarez M.D. 11/24/2024 11:51 AM Dictation Location: [place] [address] Electronically authenticated by: [id number] Y Date: 11/24/2024 11:51 Dictated By: Cait Suarez M.D. Signed By: 11/24/24 1154 DD/ 1151 TD/TT: Landscape Engineer: [facility] Radiology, Radiologist, - 11/24/[address] [address] [address] Scan Report Signed Patient: HORTENSIA BATES MR#: [id number] : 1955 Acct:[id number] Age/Sex: 69 / F ADM Date: 11/24/24 Loc: MAMMO Attending Dr: Kaila Goldstein NP Ordering Physician: Kaila Goldstein NP Date of Service: 11/24/24 Procedure(s): CT lung screening low-dose Accession Number(s): [id number] cc: Kaila Goldstein NP [address] [address] Patient Name: HORTENSIA BATES MRN: [id number] date: 1955 Sex: F Assigned Patient Location: [facility] Current Patient Location: [facility] Accession/Order Number: [id number] Exam Date: 11/24/2024 11:37 Report Date: 11/24/2024 11:51 At the request of: KAILA GOLDSTEIN NP Procedure: CT lung screening low-dose LOW-DOSE SCREENING CHEST CT WITHOUT CONTRAST COMPARISON: 10/01/2023 CLINICAL DATA: 20 year history of tobacco use. Spiral axial low-dose images were obtained through the chest. Images were reviewed using both narrow and wide window settings. This CT exam was performed using one or more following dose reduction techniques: Automated exposure control, adjustment of the mA and/or kV according to patient size, or use of iterative reconstruction technique. The heart is within normal limits for size. There are bilateral pericardial fat pads. No pericardial fluid is noted. Minimal coronary disease is seen. The ascending aorta is ectatic with diameter approximately 4 cm. There is plaque at the aortic arch and proximal great vessels. No enlarged nodes are identified. The left thyroid lobe is larger than the right and there is heterogeneity. There is endplate spurring throughout the thoracic spine. There is no developing consolidation, pleural effusion or pneumothorax. There is redemonstration of 2 noncalcified nodules in close proximity within the right middle lobe adjacent to the minor fissure, larger measuring 7 mm. These may be intrapulmonary lymph nodes. There is also potential third on the sagittal image #106. A stable 6-7 mm nodule at the posterior medial left lower lobe is again seen. No new nodularity is noted. Limited cuts through the upper abdomen show no contributory findings. CT/CT lung screening low-dose IMPRESSION: STABLE NODULARITY. NO ACUTE FINDINGS. Lung RADS category 2 - benign Twelve-month low-dose CT follow-up suggested Impression dictated by: Cait Suarez M.D. 11/24/2024 11:51 AM Dictation Location: [place] [address] Electronically authenticated by: [id number] Y Date: 11/24/2024 11:51 Dictated By: Cait Suarez M.D. Signed By: 11/24/24 1154 DD/ 1151 TD/TT: Landscape Engineer: [facility] Radiology Study observation (narrative) [facility] CT LUNG SCREENING LOW DOSEOr dered By: Radiologist Radiology on 11-24-2024 [facility]OPT[facility] Work Phone: MM TOMOSYNTHESIS SCREENING B Ion 11-24-2024 [place] [address] Mammography Report Signed Patient: HORTENSIA BATES MR#: [id number] : 1955 Acct:[id number] Age/Sex: 69 / F ADM Date: 11/24/24 Loc: MAMMO Attending Dr: Kaila Goldstein NP Ordering Physician: Kaila Goldstein NP Results: Date of Service: 11/24/24 Follow Up: Procedure(s): MM tomosynthesis screening BI Accession Number(s): [id number] cc: Kaila Goldstein NP Patient Name: HORTENSIA BATES MR#: [id number] : 1955 Exam Date: 11/24/2024 Ordering Doctor: NYDIA GOLDSTEIN CNP RADIOLOGY REPORT PROCEDURE: MM TOMOSYNTHESIS SCREENING BI COMPARISON: MM DIAGNOSTIC MAMMO UNILAT RT, 04/07/2023. MM TOMOSYNTHESIS SCREENING BI, 03/18/2023. INDICATIONS: screening for malignant neoplasm of breast Calculator Name NCI Breast Cancer Risk Assessment Tool 5 Year Breast Cancer Risk 1.50% Lifetime Breast Cancer Risk 5.00% Personal Breast Cancer No Personal Ovarian Cancer No Treatments None Family Cancers None LOCATION: The [facility] BREAST COMPOSITION: There are scattered areas of fibroglandular density. FINDINGS: RIGHT BREAST: No significant suspicious finding. LEFT BREAST: No significant suspicious finding. DIAGNOSTIC CATEGORY 1--NEGATIVE. RECOMMENDATIONS: ROUTINE MAMMOGRAM AND CLINICAL EVALUATION IN 12 MONTHS. PLEASE NOTE: A NORMAL MAMMOGRAM DOES NOT EXCLUDE THE POSSIBILITY OF BREAST CANCER. A CLINICALLY SUSPICIOUS PALPABLE LUMP SHOULD BE BIOPSIED. Dictated by: Aaron Sue DO on 11/24/2024 at 13:36 Approved by: Aaron Sue DO on 11/24/2024 at 13:45 Dictated By: Aaron Sue D.O. Signed By: 11/24/24 1347 DD/ 134 TD/TT: Landscape Engineer: [facility] Radiology, Radiologist, MD - 11/24/2024 [place] [address] Mammography Report Signed Patient: HORTENSIA BATES MR#: [id number] : 1955 Acct:[id number] Age/Sex: 69 / F ADM Date: 11/24/24 Loc: MAMMO Attending Dr: Kaila Goldstein NP Ordering Physician: Kaila Goldstein NP Results: Date of Service: 11/24/24 Follow Up: Procedure(s): MM tomosynthesis screening BI Accession Number(s): [id number] cc: Kaila Goldstein NP Patient Name: HORTENSIA BATES MR#: [id number] : 1955 Exam Date: 11/24/2024 Ordering Doctor: NYDIA GOLDSTEIN CNP RADIOLOGY REPORT PROCEDURE: MM TOMOSYNTHESIS SCREENING BI COMPARISON: MM DIAGNOSTIC MAMMO UNILAT RT, 04/07/2023. MM TOMOSYNTHESIS SCREENING BI, 03/18/2023. INDICATIONS: screening for malignant neoplasm of breast Calculator Name NCI Breast Cancer Risk Assessment Tool 5 Year Breast Cancer Risk 1.50% Lifetime Breast Cancer Risk 5.00% Personal Breast Cancer No Personal Ovarian Cancer No Treatments None Family Cancers None LOCATION: [facility] BREAST COMPOSITION: There are scattered areas of fibroglandular density. FINDINGS: RIGHT BREAST: No significant suspicious finding. LEFT BREAST: No significant suspicious finding. DIAGNOSTIC CATEGORY 1--NEGATIVE. RECOMMENDATIONS: ROUTINE MAMMOGRAM AND CLINICAL EVALUATION IN 12 MONTHS. PLEASE NOTE: A NORMAL MAMMOGRAM DOES NOT EXCLUDE THE POSSIBILITY OF BREAST CANCER. A CLINICALLY SUSPICIOUS PALPABLE LUMP SHOULD BE BIOPSIED. Dictated by: Aaron Sue DO on 11/24/2024 at 13:36 Approved by: Aaron Sue DO on 11/24/2024 at 13:45 Dictated By: Aaron Sue D.O. Signed By: 11/24/24 1347 DD/ 1346 TD/TT: Landscape Engineer: [facility] Radiology Study observation (narrative) [facility] MM TOMOSYNTHESIS SCREENING B IOrdered By: Radiologist Radiology on 11-24-2024 [facility] Work Phone: ALL CBC WITH AUTO DIFFon BASOPHILS ABSOLUTE AUTO 0.1 [facility] Basophils/100 WBC (Bld) 0.7 % 0.2 - 2.0 % [facility] Eosinophils/100 WBC (Bld) 2.8 % 0.9 - 7.0 % [facility] Erythrocyte distribution width (RBC) [Ratio] 14.3 % 11.0 - 15.0 % [facility] Hematocrit (Bld) [Volume fraction] 43 % 36.0 - 48.0 % [facility] Hemoglobin (Bld) [Mass/Vol] 13.9 g/dL 12.0 - 16.0 g/dL [facility] IMMATURE GRANULOCYTES ABS AUTO 0.03 [facility] Immature granulocytes/100 WBC (Bld) 0.3 % 0.0 - 0.5 % [facility] LYMPHOCYTES ABSOLUTE AUTO 3.4 [facility] Lymphocytes/100 WBC (Bld) 33.8 % 20.5 - 60.0 % [facility] MCH (RBC) [Entitic mass] 28.8 pg 26.7 - 34.0 pg [facility] MCHC (RBC) [Mass/Vol] 32.3 g/dL 29.9 - 35.2 g/dL [facility] MCV (RBC) [Entitic vol] 89 fL 81.0 - 99.0 fL [facility] MONOCYTES ABSOLUTE AUTO 0.6 [facility] Monocytes/100 WBC (Bld) 6.2 % 1.7 - 12.0 % [facility] NEUTROPHILS ABSOLUTE AUTO 5.6 [facility] Neutrophils/100 WBC (Bld) 56.2 % 43.0 - 75.0 % [facility] Platelet mean volume (Bld) [Entitic vol] 9.9 fL 9.5 - 13.5 fL [facility] TBH EO # 0.3 [facility] PLT 315 [facility] RBC 4.83 [facility] WBC 10 [facility] MLR HEMOGLOBIN A1Con 025 Glucose [Mass/Vol] 134 mg/dL [facility] HbA1c (Bld) [Mass fraction] 6.3 % High 4.5 - 6.2 % [facility] Comment on above: ADA RECOMMENDED LIMI T 4.0 - 6.0 ADA THERAPEUTIC TARGET < 7.0 ACTION SUGGESTED > 7.0 Interpretation and review of laboratory results Abnormal [facility] 36on 08-03-2024 36 Great, thanks! [facility] 36on 07-31-2024 36 Has she been able to increase rosuvastatin to daily? [facility] 36on 06-28-2024 36 We can try her on rosuvastatin. Start at 5mg every other day then increase to daily if she is tolerating okay. Follow-up with her again in 1 month to see how she's tolerating the rosuvastatin. Thank you! [facility] Office Visiton 05-24-2024 Follow-up visit [id number] Hortensia Bates 1955 Provider Department Center 05/24/2024 Sheron-MADDIE CALVO NAVARRO Smith Family History Problem Relation Age of Onset No Known Problems Mother No Known Problems Father Family Status - Relation Status Age at Mother Father Level of Service:68210 IA OFFICE/OUTPATIENT ESTABLISHED LOW MDM 20 MIN Reason for Visit and Comments: Atrial Fibrillation [80] Hypertension [905698] Hyperlipidemia [182] [facility] Telephoneon 05-24-2024 Telephone [id number] Hortensia Bates 1955 Date Provider Department Center 05/24/2024 Jerald-JOSEFA PADILLA NAVARRO [place] Family History Problem Relation Age of Onset No Known Problems Mother No Known Problems Father Family Status - Relation Status Age at Mother Father Normal [facility] Wes 06-23-2023 CNPN Telephone (LATRICIAALFONSO) HORTENSIA BATES ([id number]) 1955 F Date Time Provider Department 06/23/23 [...] Date Reviewed: 06/18/2023 Reviewed by: Nayan De Dios, RN - Fully Assessed Reason for Visit: [...] Status:Closed by WINDY CABA MA on 06/23/23 [facility] ANES POSTPROC EVALon 024 ANES POSTPROC EVAL HNO ID: [id number] Author: YANN KUHN MD Service: Anesthesiology Author Type: Physician Type: Anesthesia Postprocedure Evaluation Filed: 06/18/2023 09:58 Note Text: POST ANESTHESIA EVALUATION NOTE : 1955 Procedure Summary Date: 06/18/23 Room / Location: Procedures Anesthesia Start: 848 Anesthesia Stop: 918 Procedure: COLONOSCOPY SCREENING Diagnosis: History of colon polyps (High risk colon cancer surveillance: Personal history of colonic polyps) Scheduled Providers: Harleen Macdonald DO; Leona Rendon APRN.WHEEL BUFFER; Yann Kuhn MD; Abby Peoples RN Responsible [...] June 18, 2023 TIME: 9:57 AM CSN: [id number] [facility] ANES PRE-OPon 06-18-2023 ANES PRE-OP HNO ID: [id number] Author: YANN KUHN MD Service: Anesthesiology Author Type: Physician Type: Anesthesia Preprocedure Evaluation Filed: 06/18/2023 08:20 Note Text: ANESTHESIOLOGY DAY OF SURGERY NOTE : 1955 Procedure Information Date/Time: 06/18/23 0900 Scheduled providers: Harleen Macdonald DO; Leona eRndon APRN.WHEEL BUFFER; Yann Kuhn MD; Abby Peoples RN Procedure: [...] Anesthetic Plan: MAC NPO Status: adequate Beta Rosa Monitoring Plan Monitoring plan: Standard ASA. Post Procedure Analgesic Plan Postoperative analgesic plan: parenteral or oral opioids and multimodal analgesia. Informed Consent Anesthetic risks, benefits, alternatives, personnel and consent discussed: yes. Patient / Responsible Democrat agrees to proceed: yes Patient / Surrogate [...] June 18, 2023 TIME: 8:19 AM CSN: [id number] [facility] COLONOSCOPY SCREENINGon [facility] Colonoscopyon 06-18-2023 Colonoscopy [facility] Gastrointestinal Endoscopy Patient Name: Hortensia Bates Procedure Date: 06/18/2023 8:48 AM Date of : 1955 Admit Type: Outpatient Age: 67 Room: [place] [address] Gender: Female Note Status: Finalized Attending MD: Harleen Macdonald DO, [id number] Procedure: Colonoscopy Indications: High risk colon cancer [...] referring physician. Procedure Code(s): --- Professional --- 78220, Colonoscopy, flexible; with biopsy, single or multiple [...] or abscess without bleeding CPT copyright 2020 [employer]. All rights reserved. The codes documented in this report are preliminary and upon solutions manager review may be revised to meet current compliance requirements. Attending Participation: I personally performed the entire procedure. Scope In: 8:53:53 AM Scope Out: 9:15:29 AM DO Harleen Hurd DO 06/18/2023 9:19:27 AM This report has been signed electronically by Harleen Macdonald DO Number of Addenda: 0 Note Initiated On: 06/18/2023 8:48 AM Estimated Blood Loss: Estimated blood loss was minimal. Normal [facility] GLUCOSE, BLOOD (POC)on 06-18 Glucose [Mass/Vol] 107 mg/dL Abnormal 74 - 99 mg/dL [facility] HISTORY PHYSICALon HISTORY PHYSICAL HNO ID: [id number] Author: HARLEEN MACDONALD DO Service: Gastroenterology Author [...] MAC Additional Comments: None Harleen Macdonald DO [facility] SURGICAL PATHOLOGYon 024 CASE REPORT [facility] Comment on above: Order Comment: Shira so Type: TISSUE SPECIMEN Ordering Facility: [facility] Address: [address] [place] [address] Result Comment: Surg ica Pathology Report Case: [id number] Authorizing Provider: Harleen Macdonald DO Collected: 06/18/2023 08:59 AM Ordering Location: Procedures Received: 06/18/2023 09:31 AM Pathologist: Thi Delvalle MD, PhD Specimens: A) - CECUM POLYP B) - ASCENDING COLON POLYP C) - TRANSVERSE COLON POLYP D) - SIGMOID COLON POLYP E) - RECTAL BIOPSY Performed By: #### S #### [facility] CLIA [id number] [address] [place] [address] [place] FINAL DIAGNOSIS Normal [facility] Comment on above: Order Comment: Shira so Type: TISSUE SPECIMEN Ordering Facility: [facility] Address: [address] [place] [address] Result Comment: A. C olon, cecum, polyp, [...] level examined. Performed By: #### S #### [facility] CLIA [id number] [address] [place] [address] [place] FINAL PERFORMING LAB Normal [facility] Comment on above: Order Comment: Speci men Type: TISSUE SPECIMEN Ordering Facility: [facility] Address: [address] [place] [address] Result Comment: Diag nostic interpretation performed at [facility], [address] [place] [address] CLIA# [id number] Wire Stitcher Machine: José Miguel White M.D. Performed By: #### S #### [facility] CLIA [id number] [address] [place] [address] OF [facility] GROSS DESCRIPTION A. CECUM POLYP Normal [facility] Comment on above: Order Comment: Speci men Type: TISSUE SPECIMEN Ordering Facility: [facility] Address: [address] [place] [address] Result Comment: Rece ived in formalin is [...] 2023 3:40 PM Gross examination performed at [facility], [address] [place] [address], [place] [address] Performed By: #### S #### [facility] CLIA [id number] [address] [place] [id number] CNPJaney 06-04-2023 CNPN Telephone (GASTAV) HORTENSIA BATES ([id number]) 1955 F Date Time Provider Department 06/04/23 HARLEEN MACDONALD During your visit today, we recorded the following information about you: Naila Fleming OCCA 06/04/2023 11:19 AM Signed Contacted and spoke with patient regarding prep instructions for upcoming procedure. Answered all patient's questions. Patient demonstrated understanding and was instructed to call [phone] and ask for nurse triage line for [...] 20 mins and then resume. Please call [phone] and ask for Nurse Triage with any [...] and then resume. THANK YOU! Please call [phone] and ask for nurse triage line if you have any questions [facility] Jared Mcneil - 2nd floor (Surgery Center) [address] [facility] [place] [address] Allergies As of Date: 06/04/2023 Noted Allergy Reaction SPIRONOLACTONE 04/29/2023 4 - Hives THIAZIDES 05/06/2022 4 - Hives Date Reviewed: Never Reviewed Reason for Visit: Pre-Op Teaching [134] Prescriptions as of 06/04/2023 - apixaban (ELIQUIS) 5 mg tab(s) Take 5 mg by mouth two times a day. - levothyroxine (SYNTHROID) 100 mcg tablet Levothyroxine Sodium - metFORMIN ER (more content not included)... Normal [facility] CNOVon 04-29-2023 CNOV Office Visit (ANITRA ) HORTENSIA BATES ([id number]) 1955 F Date Time Provider Department 04/29/23 [...] If you do not have a responsible jeep driver (family member or friend) with you to take you home, your exam cannot be done with sedation and will be cancelled. Please bring a list of all of your current medications, including any Xdfg-xry-Ivtnplc medications with you. Medications If you take [...] Compliant: Consultation requested by Dr. Kaila Goldstein, [facility] for an opinion regarding hx of colon polyps. My final recommendations will be communicated back to the requesting physician by way of shared Medical record or letter to requesting physician via US mail. HPI: Hortensia Bates is a 67 year old female with PMH significant for hypo (more content not included)... Normal [facility] CNPNon 04-21-2023 CNPN Telephone ([facility]) HORTENSIA BATES ([id number]) 1955 F Date Time Provider Department 04/21/23 CARMEN JACOB [facility] During your visit today, we recorded the [...] Date: 04/21/2023 (None) Encounter Status:Closed by ELLY ÁLVAREZ on 04/21/23 Normal [facility] Glucose Glucometer (BldC) [M ass/Vol]Ordered By: Kaila Goldstein on 04-03-2023 Glucose [Mass/Vol] 118 mg/dL [facility] Comment on above: Random Glucose Refer ence Range is dependent on time and content of last meal. Glucose of more than 200 mg/dL in a nonstressed, ambulatory subject supports the diagnosis of Diabetes Mellitus. Glucose Poct Glucometerson 1 06-03-2022 Glucose [Mass/Vol] 118 mg/dL [facility] Comment on above: Result Comment: [facility] Glucose Reference Range is dependent on time and content of last meal. Glucose of more than 200 mg/dL in a nonstressed, ambulatory subject supports the diagnosis of Diabetes Mellitus. PERFORMED BY: [place] [id number] PATHOLOGIST IVORY CARVER DARNELL WESLEY M.D. Performed By: #### G LULS #### Point of Care testing , PET tumor init tx strat sb-m ton 04-03-2023 PET tumor init tx strat sb-mt [facility] [place] [address] [place], [place] [id number] Nuclear Medicine Report Signed Patient: Hortensia Bates MR#: [id number] : 1955 Acct:[id number] Age/Sex: 67 / F ADM Date: 04/03/23 Loc: Room: Type: [facility] Attending Dr: Kaila Goldstein Copies to: Simone [...] Reid Jr., D.O.04/03/2023 1:18 PM Dictation Location: [place] [address] Transcribed By: [facility] 04/03/23 1318 Dictated By: Simone Reid Jr, DO 04/03/23 1202 Signed By: 04/03/23 1318 Normal [facility] Physician Referralon 03-13- 023 Physician Referral [id number] Normal [facility] CBC AUTO DIFFon 09-15-2022 BASO # 0.1 103/ul Normal 0.0-0.1 [facility] Comment on above: Performed By: #### C BC #### [facility] [address] [address] [address] Yenny Huertas Basophils/100 WBC (Bld) 0.7 % Normal 0.2-2.0 [facility] Comment on above: Performed By: #### C BC #### [facility] [address] [address] [address] Yenny Huertas EO # 0.2 103/ul Normal 0.0-0.7 [facility] Comment on above: Performed By: #### C BC #### [facility] [address] [address] [address] Yenny Huertas Eosinophils/100 WBC (Bld) 2.7 % Normal 0.9-7.0 [facility] Comment on above: Performed By: #### C BC #### [facility] [address] [address] [address] Yenny Huertas Erythrocyte distribution width (RBC) [Ratio] 14.6 % Normal 11.0-15.0 [facility] Comment on above: Performed By: #### C BC #### [facility] [address] [address] [address] Yenny Huertas Hematocrit (Bld) [Volume fraction] 41.4 % Normal 36.0-48.0 [facility] Comment on above: Performed By: #### C BC #### [facility] [address] [address] [address] Yenny Huertas Hemoglobin (Bld) [Mass/Vol] 13.6 g/dL Normal 12.0-16.0 [facility] Comment on above: Performed By: #### C BC #### [facility] [address] [place] [address] Dr. Yenny Huertas IG # 0.03 10e3/ul Normal 0.00-0.03 [facility] Comment on above: Performed By: #### C BC #### [facility] [address] [place] [address] Dr. Yenny Huertas IG % 0.3 % Normal 0.0-0.5 [facility] Comment on above: Performed By: #### C BC #### [facility] [address] [place] [address] Dr. Yenny Huertas LYMPH # 3.3 103/ul Normal 1.2-3.8 [facility] Comment on above: Performed By: #### C BC #### [facility] [address] [place] [address] Dr. Yenny Huertas Lymphocytes/100 WBC (Bld) 36.3 % Normal 20.5-60.0 [facility] Comment on above: Performed By: #### C BC #### [facility] [address] [place] [address] Dr. Yenny Huertas MANUAL DIFF REQ NO Normal [facility] Comment on above: Performed By: #### C BC #### [facility] [address] [place] [address] Dr. Yenny Huertas MCH (RBC) [Entitic mass] 29.1 pg Normal 26.7-34.0 [facility] Comment on above: Performed By: #### C BC #### [facility] [address] [place] [address] Dr. Yenny Huertas MCHC (RBC) [Mass/Vol] 32.9 g/dL Normal 29.9-35.2 [facility] Comment on above: Performed By: #### C BC #### [facility] [address] [place] [address] Dr. Yenny Huertas MCV (RBC) [Entitic vol] 88.7 fL Normal 81.0-99.0 [facility] Comment on above: Performed By: #### C BC #### [facility] [address] [place] [address] Dr. Yenny Huertas MONO # 0.7 103/ul Normal 0.3-0.8 [facility] Comment on above: Performed By: #### C BC #### [facility] [address] [place] [address] Dr. Yenny Huertas Monocytes/100 WBC (Bld) 7.7 % Normal 1.7-12.0 [facility] Comment on above: Performed By: #### C BC #### [facility] [address] [place] [address] Dr. Yenny Huertas NEUT # 4.7 103/ul Normal 1.4-6.5 [facility] Comment on above: Performed By: #### C BC #### [facility] [address] [place] [address] Dr. Yenny Huertas Neutrophils/100 WBC (Bld) 52.3 % Normal 43.0-75.0 [facility] Comment on above: Performed By: #### C BC #### [facility] [address] [place] [address] Dr. Yenny Huertas Platelet mean volume (Bld) [Entitic vol] 9.9 fL Normal 9.5-13.5 [facility] Comment on above: Performed By: #### C BC #### [facility] [address] [place] [address] Dr. Yenny Huertas PLT 285 103/ul Normal 150-450 [facility] Comment on above: Performed By: #### C BC #### [facility] [address] [place] [address] Dr. Yenny Huertas RBC 4.67 106/ul Normal 4.20-5.40 [facility] Comment on above: Performed By: #### C BC #### [facility] [address] [place] [address] Dr. Yenny Huertas WBC 9.0 103/ul Normal 4.0-11.0 [facility] Comment on above: Performed By: #### C BC #### [facility] [address] [address] [address] Yenny Huertas FREE T4on 09-15-2022 Free T4 [Mass/Vol] 1.04 ng/dL Normal 0.76-1.46 [facility] Comment on above: Performed By: #### F T4 #### [facility] [address] [place] [address] Dr. Yenny Huertas GLYCOHEMOGLOBIN A1Con 2022 ADA RECOMMENDATION SEE BELOW Normal [facility] Comment on above: Result Comment: ADA RECOMMENDED LIMIT 4.0 - 6.0 ADA THERAPEUTIC TARGET < 7.0 ACTION SUGGESTED > 7.0 Performed By: #### A 1C #### [facility] [address] [place] [address] Dr. Yenny Huertas Glucose [Mass/Vol] 126 mg/dL Normal [facility] Comment on above: Performed By: #### A 1C #### [facility] [address] [place] [address] Dr. Yenny Huertas HbA1c (Bld) [Mass fraction] 6.0 % Normal 4.5-6.2 [facility] Comment on above: Performed By: #### A 1C #### [facility] [address] [place] [address] Dr. Yenny Huertas MICROALBUMIN, RAND URon 05 mALB <1.3 Normal <=30.0 [facility] Comment on above: Performed By: #### M ALBR #### [facility] [address] [place] [address] Dr. Yenny Huertas PROF 14(COMP METB)on 023 Albumin [Mass/Vol] 3.5 g/dL Normal 3.4-5.0 [facility] Comment on above: Performed By: #### T SH, CMP #### [facility] [address] [place] [address] Dr. Yenny Huertas Albumin/Globulin [Mass ratio] 0.9 {ratio} Normal [facility] Comment on above: Performed By: #### T SH, CMP #### [facility] [address] [place] [address] Dr. Yenny Huertas ALP [Catalytic activity/Vol] 53 U/L Normal 46-116 [facility] Comment on above: Performed By: #### T SH, CMP #### [facility] [address] [place] [address] Dr. Yenny Huertas ALT [Catalytic activity/Vol] 30 U/L Normal 14-59 [facility] Comment on above: Performed By: #### T SH, CMP #### [facility] [address] [place] [address] Dr. Yenny Huertas Anion gap [Moles/Vol] 9.6 mmol/L Normal [facility] Comment on above: Performed By: #### T SH, CMP #### [facility] [address] [place] [address] Dr. Yenny Huertas AST [Catalytic activity/Vol] 17 U/L Normal 15-37 [facility] Comment on above: Performed By: #### T SH, CMP #### [facility] [address] [place] [address] Dr. Yenny Huertas Bilirubin [Mass/Vol] 0.6 mg/dL Normal 0.2-1.0 [facility] Comment on above: Performed By: #### T MADELIN, CMP #### [facility] [address] [place] [address] Dr. Yenny Huertas Calcium [Mass/Vol] 9.1 mg/dL Normal 8.5-10.1 [facility] Comment on above: Performed By: #### T MADELIN, CMP #### [facility] [address] [place] [address] Dr. Yenny Huertas Chloride [Moles/Vol] 106 mmol/L Normal 98-107 [facility] Comment on above: Performed By: #### T SH, CMP #### [facility] [address] [place] [address] Dr. Yenny Huertas CO2 [Moles/Vol] 26.4 mmol/L Normal 21.0-32.0 [facility] Comment on above: Performed By: #### T SH, CMP #### [facility] [address] [place] [address] Dr. Yenny Huertas Creatinine [Mass/Vol] 0.84 mg/dL Normal 0.55-1.02 [facility] Comment on above: Performed By: #### T SH, CMP #### [facility] [address] [place] [address] Dr. Yenny Huertas EGFR-AF [place] >60 Normal >=60 [facility] Comment on above: Performed By: #### T SH, CMP #### [facility] [address] [address] [address] Yenny Huertas EGFR-NON AF [place] >60 Normal >=60 [facility] Comment on above: Performed By: #### T SH, CMP #### [facility] [address] [place] [address] Dr. Yenny Huertas Globulin (S) [Mass/Vol] 3.9 g/dL Normal [facility] Comment on above: Performed By: #### T SH, CMP #### [facility] [address] [place] [address] Dr. Yenny Huertas Glucose [Mass/Vol] 119 mg/dL Critically high 74-106 [facility] Comment on above: Performed By: #### T SH, CMP #### [facility] [address] [place] [address] Dr. Yenny Huertas Potassium [Moles/Vol] 4.0 mmol/L Normal 3.5-5.1 [facility] Comment on above: Performed By: #### T SH, CMP #### [facility] [address] [place] [address] Dr. Yenny Huertas Protein [Mass/Vol] 7.4 g/dL Normal 6.4-8.2 [facility] Comment on above: Performed By: #### T SH, CMP #### [facility] [address] [place] [address] Dr. Yenny Huertas Sodium [Moles/Vol] 138 mmol/L Normal 136-145 [facility] Comment on above: Performed By: #### T SH, CMP #### [facility] [address] [place] [address] Dr. Yenny Huertas Urea nitrogen [Mass/Vol] 21.0 mg/dL Critically high 7.0-18.0 [facility] Comment on above: Performed By: #### T SH, CMP #### [facility] [address] [place] [address] Dr. Yenny Huertas Urea nitrogen/Creatinine [Mass ratio] 25.0 mg/mg Normal [facility] Comment on above: Performed By: #### T SH, CMP #### [facility] [address] [place] [address] Dr. Yenny Huertas TSHon 09-15-2022 TSH 3.836 uIU/mL Critically high 0.358-3.740 [facility] Comment on above: Performed By: #### T SH, CMP #### [facility] [address] [place] [address] Dr. Yenny Huertas UA RANDOM W/MICROSCOPICon BACTERIA TRACE Abnormal NONE SEEN [facility] Comment on above: Performed By: #### U AMIC #### [facility] [address] [place] [address] Dr. Yenny Huertas Bilirubin Ql (U) Negative Normal NEGATIVE [facility] Comment on above: Performed By: #### U AMIC #### [facility] [address] [place] [address] Dr. Yenny Huertas CAST NONE SEEN Normal NONE [facility] Comment on above: Performed By: #### U AMIC #### [facility] [address] [place] [address] Dr. Yenny Huertas Clarity (U) CLEAR Normal CLEAR [facility] Comment on above: Performed By: #### U AMIC #### [facility] [address] [place] [address] Dr. Yenny Huertas Color (U) LT. YELLOW Normal YELLOW [facility] Comment on above: Performed By: #### U AMIC #### [facility] [address] [place] [address] Dr. Yenny Huertas Crystals LM Nom (Urine sed) NONE SEEN Normal NONE SEEN [facility] Comment on above: Performed By: #### U AMIC #### [facility] [address] [place], [place] [id number] Dr. Yenny Huertas Epithelial cells LM Ql (Urine sed) MODERATE Abnormal NONE SEEN /RARE [facility] Comment on above: Performed By: #### U AMIC #### [facility] [address] [place] [address] Dr. Yenny Huertas Glucose Ql (U) Negative Normal NEGATIVE [facility] Comment on above: Performed By: #### U AMIC #### [facility] [address] [address] [address] Yenny Huertas Hemoglobin Ql (U) Negative Normal NEGATIVE The [facility] Comment on above: Performed By: #### U AMIC #### [facility] [address] [place] [address] Dr. Yenny Huertas Ketones Ql (U) Negative Normal NEGATIVE [facility] Comment on above: Performed By: #### U AMIC #### [facility] [address] [place] [address] Dr. Yenny Huertas LEUKOCYTES TRACE Abnormal NEGATIVE [facility] Comment on above: Performed By: #### U AMIC #### [facility] [address] [place] [address] Dr. Yenny Huertas MUCOUS NONE SEEN Normal NONE SEEN The [facility] Comment on above: Performed By: #### U AMIC #### [facility] [address] [place] [address] Dr. Yenny Huertas Nitrite Ql (U) Negative Normal NEGATIVE [facility] Comment on above: Performed By: #### U AMIC #### [facility] [address] [address] [address] Yenny Huertas pH (U) 5.0 [pH] Normal 5-9 [facility] Comment on above: Performed By: #### U AMIC #### [facility] [address] [place] [address] Dr. Yenny Huertas RBC 0-2 Normal 0-2 [facility] Comment on above: Performed By: #### U AMIC #### [facility] [address] [place] [address] Dr. Yenny Huertas SPEC GRAVITY >=1.030 Abnormal 1.005-<=1.025 The [facility] Comment on above: Performed By: #### U AMIC #### [facility] [address] [address] [address] Yenny Huertas UA PROTEIN Negative Normal NEGATIVE/ TRACE [facility] Comment on above: Performed By: #### U AMIC #### [facility] [address] [address] [address] Yenny Huertas Urobilinogen Qn (U) 0.2 {Mila'U}/dL Normal 0.2 - 1. 0 The [facility] Comment on above: Performed By: #### U AMIC #### [facility] [address] [address] [address] Yenny Huertas WBC 2-5 Abnormal NONE SEEN The [facility] Comment on above: Performed By: #### U AMIC #### [facility] [address] [address] [address] Yenny Huertas Covid-19 PCR (CVDTBH)on 04-17 SARS-CoV-2 (COVID-19) RNA JAS+probe Ql (Unsp spec) Detected Critically abnormal NOT DETECTED The [facility] Comment on above: Result Comment: This test is not yet approved or cleared by the [place] FDA. When there are no FDA-approved or cleared tests available, and other criteria are met, FDA can make tests available under an emergency access mechanism called an Emergency Use Authorization (EUA). The EUA for this test is supported by the [employer] Operator of Health and Human Service's declaration that [...] used). Performed By: #### C VDTBH #### [facility] [address] [address] [address] Yenny Huertas INFLUENZA A AND B AGon 05-01 INFLUANEGH SEE BELOW Normal The [facility] Comment on above: Result Comment: Nega tive for Flu A protein angiten. Infection due to Flu A cannot be ruled out. Flu A angiten in the sample may be below the detection limit of the test. Performed By: #### I NFLUAB #### [facility] [address] [place] [address] Dr. Yenny Huertas INFLUBNEGH SEE BELOW Normal [facility] Comment on above: Result Comment: Nega tive for Flu B protein antigen. Infection due to Flu B cannot be ruled out. Flu B antigen in the sample may be below the detection limit of the test. Performed By: #### I NFLUAB #### [facility] [address] [place] [address] Dr. Yenny Huertas INFLUENZA A AG Negative Normal NEGATIVE SEE COMMENT [facility] Comment on above: Performed By: #### I NFLUAB #### [facility] [address] [place] [address] Dr. Yenny Huertas INFLUENZA B AG Negative Normal NEGATIVE SEE COMMENT [facility] Comment on above: Performed By: #### I NFLUAB #### [facility] [address] [place] [address] Dr. Yenny Huertas INTERNAL CONTROLS Within Normal Limits Normal Wi thin Normal Limits The [facility] Comment on above: Performed By: #### I NFLUAB #### [facility] [address] [place] [address] Dr. Yenny Huertas GLYCOHEMOGLOBIN A1Con 2021 ADA RECOMMENDATION SEE BELOW Normal [facility] Comment on above: Result Comment: ADA RECOMMENDED LIMIT 4.0 - 6.0 ADA THERAPEUTIC TARGET < 7.0 ACTION SUGGESTED > 7.0 Performed By: #### M ALBR #### [facility] [address] [place] [address] Dr. Yenny Huertas Glucose [Mass/Vol] 117 mg/dL Normal [facility] Comment on above: Performed By: #### M ALBR #### [facility] [address] [place] [address] Dr. Yenny Huertas HbA1c (Bld) [Mass fraction] 5.7 % Normal 4.5-6.2 [facility] Comment on above: Performed By: #### M ALBR #### [facility] [address] [place], [place] [address] Dr. Yenny Huertas URIC ACID SERUMon 03-13-2022 Urate [Mass/Vol] 4.8 mg/dL Normal 2.6-6.0 [facility] Comment on above: Performed By: #### U DILIA #### [facility] [address] [place], [place] [address] Dr. Yenny Huertas Endoscopy Reporton 1 Endoscopy Report MR#: [id number] [facility] Pt. Name: Hortensia Bates Surgery Date: [...] Aranda MD Date Trans: 11/03/2020 08:22 A/lazarus [id number] Normal The [facility] POC GLUCOSE LABon 11-02-2020 Glucose [Mass/Vol] 90 mg/dL Normal 70-[address] [facility] Comment on above: Performed By: #### 3 1792 #### [facility] [address] [place] [address], [facility] BASIC METABOLIC PANELon 07-16 Calcium [Mass/Vol] 7.9 mg/dL Low 8.6-10.[address] [facility] Comment on above: Order Comment: No: D o not add to previous draw Performed By: #### 8 [id number] #### [facility] [address] [place] [address], [place] Chloride [Moles/Vol] 107 mmol/L Normal 98-107 The [facility] Comment on above: Order Comment: No: D o not add to previous draw Performed By: #### 8 [id number] #### [facility] [address] [place] [address], [place] CO2 [Moles/Vol] 24 mmol/L Normal 21-31 [facility] Comment on above: Order Comment: No: D o not add to previous draw Performed By: #### 8 [id number] #### [facility] [address] [place] [address], [place] Creatinine [Mass/Vol] 0.62 mg/dL Normal 0.60-1.20 The [facility] Comment on above: Order Comment: No: D o not add to previous draw Performed By: #### 8 [id number] #### [facility] [address] [place] [address], [place] GFR/1.73 sq M.predicted among blacks MDRD (S/P/Bld) [Vol rate/Area] mL/min/{1.73_m2} Normal >60 The [facility] Comment on above: Order Comment: No: D o not add to previous draw Performed By: #### 8 [id number] #### [facility] [address] [place] [address], [place] GFR/1.73 sq M.predicted among non-blacks MDRD (S/P/Bld) [Vol rate/Area] mL/min/{1.73_m2} Normal >60 The [facility] Comment on above: Order Comment: No: D o not add to previous draw Performed By: #### 8 [id number] #### [facility] [address] [place] [address], [place] Glucose [Mass/Vol] 106 mg/dL High 70-100 [facility] Comment on above: Order Comment: No: D o not add to previous draw Performed By: #### 8 [id number] #### [facility] [address] [place] [address], [place] Potassium [Moles/Vol] 3.9 mmol/L Normal 3.5-5.1 The [facility] Comment on above: Order Comment: No: D o not add to previous draw Performed By: #### 8 [id number] #### [facility] [address] [place] [address], [place] Sodium [Moles/Vol] 137 mmol/L Normal 136-145 [facility] Comment on above: Order Comment: No: D o not add to previous draw Performed By: #### 8 [id number] #### [facility] [address] [place] [address], [facility] Urea nitrogen [Mass/Vol] 11 mg/dL Normal 7-25 The [facility] Comment on above: Order Comment: No: D o not add to previous draw Performed By: #### 8 [id number] #### [facility] [address] [place] [address], [facility] CBC COMPLETE BLOOD COUNTon - Erythrocyte distribution width (RBC) [Ratio] 14.1 % Normal 11.5-15.0 The [facility] Comment on above: Order Comment: No: D o not add to previous draw Performed By: #### 8 [id number] #### [facility] [address] [facility] [place] [address], [facility] Hematocrit (Bld) [Volume fraction] 37.8 % Normal 36.0-45.0 The [facility] Comment on above: Order Comment: No: D o not add to previous draw Performed By: #### 8 [id number] #### [facility] [address] [place] [address], [facility] Hemoglobin (Bld) [Mass/Vol] 12.2 g/dL Normal 12.0-15.0 The [facility] Comment on above: Order Comment: No: D o not add to previous draw Performed By: #### 8 [id number] #### [facility] [address] [facility] [place] [place] [address], [facility] MCH (RBC) [Entitic mass] 29.6 pg Normal 27.0-33.0 The [facility] Comment on above: Order Comment: No: D o not add to previous draw Performed By: #### 8 [id number] #### [facility] [address] [place] [address], [facility] MCHC (RBC) [Mass/Vol] 32.3 g/dL Normal 32.0-35.0 The [facility] Comment on above: Order Comment: No: D o not add to previous draw Performed By: #### 8 [id number] #### [facility] [address] [place] [address], [facility] MCV (RBC) [Entitic vol] 91.7 fL Normal 82.0-98.0 The [facility] Comment on above: Order Comment: No: D o not add to previous draw Performed By: #### 8 [id number] #### [facility] [address] [place] [address], [facility] Nucleated RBC/100 WBC (Bld) [Ratio] 0 % Normal 0-0 The [facility] Comment on above: Order Comment: No: D o not add to previous draw Performed By: #### 8 [id number] #### [facility] [address] [place] [address], [facility] PLAT CNT 276 10*3/uL Normal 150-400 The [facility] Comment on above: Order Comment: No: D o not add to previous draw Performed By: #### 8 [id number] #### [facility] [address] [place] [address], [facility] RBC (Bld) [#/Vol] 4.12 10*6/uL Normal 3.80-5.00 The [facility] Comment on above: Order Comment: No: D o not add to previous draw Performed By: #### 8 [id number] #### [facility] [address] [facility] [place] [address], [facility] WBC (Bld) [#/Vol] 15.14 10*3/uL High 4.00-10.60 The [facility] Comment on above: Order Comment: No: D o not add to previous draw Performed By: #### 8 [id number] #### [facility] [address] [facility] [place] [id number], [facility] MAGNESIUM BLOODon 07-27-2020 Magnesium [Mass/Vol] 1.7 mg/dL Low 1.9-2.7 The [facility] Comment on above: Order Comment: No: D o not add to previous draw Performed By: #### 8 [id number] #### [facility] [address] [place] [address], [facility] POC GLUCOSE LABon 07-27-2020 Glucose [Mass/Vol] 93 mg/dL Normal 70-[address] [facility] Comment on above: Performed By: #### 3 1792 #### [facility] [address] [place] [address], [facility] Glucose [Mass/Vol] 101 mg/dL High 70-[address] [facility] Comment on above: Performed By: #### 3 5200 #### [facility] [address] [place] [address], [facility] Cardiovascular Lab Reporton 07-26-2020 Cardiovascular Lab Report [facility] Patient Name: Hortensia Bates [facility] MR #: [id number] Physician: Suleiman Salamanca MD Department of Service Date: 07/26/2020 Medicine Birthdate: 1955 Division of Room #: 3AB 546353 Cardiology Adult Cardiovascular Services [address] [address] Cardiovascular Laboratory Report ATRIAL FIBRILLATION ABLATION PROCEDURE [...] mildly enlarged. Esophagus was mapped using the [employer] 3D mapping software. Double transseptal access technique [...] fol (more content not included)... Normal The [facility] POC GLUCOSE LABon 07-26-2020 Glucose [Mass/Vol] 135 mg/dL High 70-100 [facility] Comment on above: Performed By: #### 8 [id number] ####[facility] [place] [address], [facility] Glucose [Mass/Vol] 134 mg/dL High 70-100 [facility] Comment on above: Performed By: #### 8 [id number] ####[facility] [place] [address], [facility] Glucose [Mass/Vol] 106 mg/dL High 70-[address] [facility] Comment on above: Performed By: #### 8 [id number] ####[facility] [place] [address], [facility] Endoscopy Reporton 0 Endoscopy Report MR#: [id number] [facility] Pt. Name: Hortensia Bates Surgery Date: 04/23/2020 Room #: 3AB [id number] Date of : 1955 PROCEDURE NOTE ATTENDING: [...] snare, measured 3 mm and 5 mm. [id number] sigmoid diverticulosis. 3. Poor colon preparation. RECOMMENDATIONS: [...] Sanchez M.D. Date Trans: 04/23/2020 10:38 A/mmo [id number] Normal The [facility] POC GLUCOSE LABon 04-23-2020 Glucose [Mass/Vol] 116 mg/dL High 70-100 [facility] Comment on above: Performed By: #### 8 [id number] #### [facility] [address] [place] [address], [place] Glucose [Mass/Vol] 98 mg/dL Normal 70-[address] [facility] Comment on above: Performed By: #### 3 5200 #### [facility] [address] [place] [address], [place] Glucose [Mass/Vol] 89 mg/dL Normal 70-[address] [facility] Comment on above: Performed By: #### 8 [id number] ####[facility] [place] [address], [place] POC GLUCOSE LABon 04-22-2020 Glucose [Mass/Vol] 93 mg/dL Normal 70-[address] [facility] Comment on above: Performed By: #### 3 1792 #### [facility] [address] [place] [address], [place] Glucose [Mass/Vol] 99 mg/dL Normal 70-[address] [facility] Comment on above: Performed By: #### 3 5200 #### [facility] [address] [place] [address], [place] Glucose [Mass/Vol] 109 mg/dL High 70-[address] [facility] Comment on above: Performed By: #### 3 1792 #### [facility] [address] [place] [address], [facility] *SARS-CoV-2 COVID-19on 04-21 Clinical Report Normal The [facility] Comment on above: Result Comment: Spec imen: OROPHARYNGEAL Collected: 04/21/2020 11:17 Status: Final Last Updated: 04/22/2020 12:41 COVID-19 (Final) Not Detected The [employer] SARS-CoV-2 assay is a real-time (rt) reverse transcriptase (RT) polymerase chain reaction (PCR) test intended for the [employer] system. The SARS-CoV-2 primer and probe sets are designed to detect RNA from SARS-CoV-2 in a nasopharyngeal (T[employer]AS[employer] MANAGEMENT SALES CONSULTANT) or oropharyngeal (OP) swab from patients with signs and symptoms of infection who are suspected of COVID-19. Results are for the identification of SARS-CoV-2 RNA. The SARS-CoV-2 RNA is generally detectable in a nasopharyngeal or oropharyngeal swab during the acute phase of infection. The [employer] SARS-CoV-2 assay is intended for use by qualified and trained clinical laboratory personnel specifically instructed and trained in the techniques of real-time PCR and in vitro diagnostic procedures. The [employer] SARS-CoV-2 assay is only for use under the Food and Drug Administration Emergency Use Authorization. Testing is limited to laboratories certified under the Clinical Laboratory Improvement Amendments of 1988 (CLIA), 42 U.S.C. 263a, to perform high complexity tests. Performed By: #### 3 5200 #### [facility] [address] [place] [address], [facility] POC GLUCOSE LABon 04-21-2020 Glucose [Mass/Vol] 105 mg/dL High 70-[address] [facility] Comment on above: Performed By: #### 8 [id number] #### [facility] [address] [place] [address], [facility] Glucose [Mass/Vol] 97 mg/dL Normal 70-[address] [facility] Comment on above: Performed By: #### 8 [id number] ####[facility] [place] [address], [facility] Glucose [Mass/Vol] 94 mg/dL Normal 70-[address] [facility] Comment on above: Performed By: #### 8 5499 ####[facility] [place] [address], [facility] Glucose [Mass/Vol] 98 mg/dL Normal 70-[address] [facility] Comment on above: Performed By: #### 8 5499 ####[facility] [place] [address], [facility] PROTHROMBIN TIMEon 0 INR Coag (PPP) [Relative time] 1.04 {INR} Normal 0.91-1.16 The [facility] Comment on above: Order Comment: [...] CHEST 1995;108:[id number]. Performed By: #### 1 0070, 98575 #### [facility] [address] [facility] [place] [address], [facility] PT Coag (PPP) [Time] 13.6 s Normal 12.3-14.8 The [facility] Comment on above: Order Comment: No: D o not add to previous draw Result Comment: ALL RESULTS MUST BE INTERPRETED WITH RESPECT TO BLOOD DRAWING ARTIFACT OR DILUTION ERROR OF ANTICOAGULANT AT THE TIME OF SAMPLING. Performed By: #### 1 0, 12606 #### [facility] [address] [place] [address], [place] BASIC METABOLIC PANELon 12-0 Calcium [Mass/Vol] 8.8 mg/dL Normal 8.6-10.3 [facility] Comment on above: Order Comment: No: D o not add to previous draw Performed By: #### 1 0, 81306 #### [facility] [address] [place] [address], [place] Chloride [Moles/Vol] 103 mmol/L Normal 98-107 The [facility] Comment on above: Order Comment: No: D o not add to previous draw Performed By: #### 1 69, 98418 #### [facility] [address] [place] [address], [place] CO2 [Moles/Vol] 26 mmol/L Normal 21-31 [facility] Comment on above: Order Comment: No: D o not add to previous draw Performed By: #### 1 69, 70036 #### [facility] [address] [place] [address], [place] Creatinine [Mass/Vol] 0.82 mg/dL Normal 0.60-1.20 The [facility] Comment on above: Order Comment: No: D o not add to previous draw Performed By: #### 1 69, 92496 #### [facility] [address] [place] [address], [place] GFR/1.73 sq M.predicted among blacks MDRD (S/P/Bld) [Vol rate/Area] mL/min/{1.73_m2} Normal >60 The [facility] Comment on above: Order Comment: No: D o not add to previous draw Performed By: #### 1 69, 35527 #### [facility] [address] [place] [address], [place] GFR/1.73 sq M.predicted among non-blacks MDRD (S/P/Bld) [Vol rate/Area] mL/min/{1.73_m2} Normal >60 The [facility] Comment on above: Order Comment: No: D o not add to previous draw Performed By: #### 1 0, 11646 #### [facility] [address] [place] [address], [place] Glucose [Mass/Vol] 99 mg/dL Normal 70-100 The [facility] Comment on above: Order Comment: No: D o not add to previous draw Performed By: #### 1 69, 75770 #### [facility] [address] [place] [address], [place] Potassium [Moles/Vol] 3.8 mmol/L Normal 3.5-5.1 [facility] Comment on above: Order Comment: No: D o not add to previous draw Performed By: #### 1 0, 54816 #### [facility] [address] [place] [address], [place] Sodium [Moles/Vol] 136 mmol/L Normal 136-[address] [facility] Comment on above: Order Comment: No: D o not add to previous draw Performed By: #### 1 0, 60823 #### [facility] [address] [place] [address], [place] Urea nitrogen [Mass/Vol] 15 mg/dL Normal 7-25 The [facility] Comment on above: Order Comment: No: D o not add to previous draw Performed By: #### 1 0, 66824 #### [facility] [address] [place] [address], [place] POC GLUCOSE LABon 04-20-2020 Glucose [Mass/Vol] 109 mg/dL High 70-[address] [facility] Comment on above: Performed By: #### 3 5200 #### [facility] [address] [place] [address], [place] Glucose [Mass/Vol] 95 mg/dL Normal 70-[address] [facility] Comment on above: Performed By: #### 8 5499 ####[facility] [place] [address], [place] Glucose [Mass/Vol] 92 mg/dL Normal 70-[address] [facility] Comment on above: Performed By: #### 3 5200 #### [facility] [address] [place] [address], [place] Glucose [Mass/Vol] 94 mg/dL Normal 70-[address] [facility] Comment on above: Performed By: #### 8 5499 ####[facility] [place] [address], [place] HEMATOCRITon 04-19-2020 Hematocrit (Bld) [Volume fraction] 42.6 % Normal 36.0-45.0 The [facility] Comment on above: Order Comment: No: D o not add to previous draw Performed By: #### 8 5499 #### [facility] [address] [place] [address], [place] HEMOGLOBINon 04-19-2020 Hemoglobin (Bld) [Mass/Vol] 13.6 g/dL Normal 12.0-15.0 [facility] Comment on above: Order Comment: No: D o not add to previous draw Performed By: #### 8 5499 #### [facility] [address] [place] [address], [place] POC GLUCOSE LABon 04-19-2020 Glucose [Mass/Vol] 114 mg/dL High 70-[address] [facility] Comment on above: Performed By: #### 8 5499 ####[facility] [place] [address], [place] Glucose [Mass/Vol] 110 mg/dL High 70-[address] [facility] Comment on above: Performed By: #### 3 1792 #### [facility] [address] [place] [address], [facility] Glucose [Mass/Vol] 95 mg/dL Normal 70-100 [facility] Comment on above: Performed By: #### 8 5499 ####[facility] [place] [address], [facility] Glucose [Mass/Vol] 89 mg/dL Normal 70-[address] [facility] Comment on above: Performed By: #### 3 1792 #### [facility] [address] [place] [address], [facility] *SARS-CoV-2 COVID-19on 04-18 Clinical Report Normal [facility] Comment on above: Result Comment: Spec imen: OROPHARYNGEAL Collected: 04/17/2020 23:30 Status: Final Last Updated: 04/18/2020 09:00 COVID-19 (Final) Not Detected The [employer] SARS-CoV-2 assay is a real-time (rt) reverse transcriptase (RT) polymerase chain reaction (PCR) test intended for the [email or web address] system. The SARS-CoV-2 primer and probe sets are designed to detect RNA from SARS-CoV-2 in a nasopharyngeal ([employer]ANT) or oropharyngeal (OP) swab from patients with signs and symptoms of infection who are suspected of COVID-19. Results are for the identification of SARS-CoV-2 RNA. The SARS-CoV-2 RNA is generally detectable in a nasopharyngeal or oropharyngeal swab during the acute phase of infection. The [employer] SARS-CoV-2 assay is intended for use by qualified and trained clinical laboratory personnel specifically instructed and trained in the techniques of real-time PCR and in vitro diagnostic procedures. The [employer] SARS-CoV-2 assay is only for use under the Food and Drug Administration Emergency Use Authorization. Testing is limited to laboratories certified under the Clinical Laboratory Improvement Amendments of 1988 (CLIA), 42 U.S.C. 263a, to perform high complexity tests. Performed By: #### 3 1791 #### [facility] [address] CBC COMPLETE BLOOD COUNTon 06-19-2019 Erythrocyte distribution width (RBC) [Ratio] 14.6 % Normal 11.5-15.0 The [facility] Comment on above: Order Comment: No: D o not add to previous drawMissed pt has to go to the bathroom ask to come back Performed By: #### 8 5499 #### [facility] [address] [place], [place] [address] Hematocrit (Bld) [Volume fraction] 43.6 % Normal 36.0-45.0 The [facility] Comment on above: Order Comment: No: D o not add to previous drawMissed pt has to go to the bathroom ask to come back Performed By: #### 8 5499 #### [facility] [address] [place], [place] [address] [place] [address] Hemoglobin (Bld) [Mass/Vol] 13.8 g/dL Normal 12.0-15.0 [facility] Comment on above: Order Comment: No: D o not add to previous drawMissed pt has to go to the bathroom ask to come back Performed By: #### 8 5499 #### [facility] [address] [place] [address], [facility] MCH (RBC) [Entitic mass] 28.9 pg Normal 27.0-33.0 [facility] Comment on above: Order Comment: No: D o not add to previous drawMissed pt has to go to the bathroom ask to come back Performed By: #### 8 5499 #### [facility] [address] [place] [id number], [facility] MCHC (RBC) [Mass/Vol] 31.7 g/dL Low 32.0-35.0 [facility] Comment on above: Order Comment: No: D o not add to previous drawMissed pt has to go to the bathroom ask to come back Performed By: #### 8 5499 #### [facility] [address] [place] [address], [facility] MCV (RBC) [Entitic vol] 91.2 fL Normal 82.0-98.0 [facility] Comment on above: Order Comment: No: D o not add to previous drawMissed pt has to go to the bathroom ask to come back Performed By: #### 8 5499 #### [facility] [address] [facility] [place] [address], [facility] Nucleated RBC/100 WBC (Bld) [Ratio] 0 % Normal 0-0 [facility] Comment on above: Order Comment: No: D o not add to previous drawMissed pt has to go to the bathroom ask to come back Performed By: #### 8 5499 #### [facility] [address] [place] [address], [facility] PLAT CNT 338 10*3/uL Normal 150-400 The [facility] Comment on above: Order Comment: No: D o not add to previous drawMissed pt has to go to the bathroom ask to come back Performed By: #### 8 5499 #### [facility] [address] [place] [address], [facility] RBC (Bld) [#/Vol] 4.78 10*6/uL Normal 3.80-5.00 The [facility] Comment on above: Order Comment: No: D o not add to previous drawMissed pt has to go to the bathroom ask to come back Performed By: #### 8 [id number] #### [facility] [address] [place] [address], [facility] WBC (Bld) [#/Vol] 10.61 10*3/uL High 4.00-10.60 The [facility] Comment on above: Order Comment: No: D o not add to previous drawMissed pt has to go to the bathroom ask to come back Performed By: #### 8 5499 #### [facility] [address] Endoscopy Reporton 0 Endoscopy Report MR#: [id number] [facility] Pt. Name: Hortensia Bates Surgery Date: 04/18/2020 Room #: [id number] Date of : 1955 PROCEDURE NOTE ATTENDING: Arley Sanchez M.D. V BELT SKIVER: Edmond Watkins MD PROCEDURE: Colonoscopy. INDICATION: This [...] to the patient being on anticoagulation. 3. Laghpnhn-ck-kvwust sigmoid diverticulosis. 4. Poor bowel prep with [...] Watkins MD Date Trans: 04/18/2020 07:10 P/lazarus [id number] Normal [facility] POC GLUCOSE LABon 04-18-2020 Glucose [Mass/Vol] 111 mg/dL High 70-[address] [facility] Comment on above: Performed By: #### 3 1792 #### [facility] [address] [place] [address], [facility] Glucose [Mass/Vol] 84 mg/dL Normal 70-[address] [facility] Comment on above: Performed By: #### 8 [id number] ####[facility] [place] [address], [place] Glucose [Mass/Vol] 87 mg/dL Normal 70-[address] [facility] Comment on above: Performed By: #### 3 1792 #### [facility] [address] [place] [address], [facility] Glucose [Mass/Vol] 86 mg/dL Normal 70-[address] [facility] Comment on above: Performed By: #### 8 5499 ####[facility] [place] [address], [place] Glucose [Mass/Vol] 104 mg/dL High 70-[address] [facility] Comment on above: Performed By: #### 8 5499 #### [facility] [address] [place] [address], [facility] PROTHROMBIN TIMEon 0 INR Coag (PPP) [Relative time] 1.85 {INR} High 0.91-1.16 [facility] Comment on above: Order Comment: [...] CHEST 1995;[id number]. Performed By: #### 1 0070, 93541 #### [facility] [address] [place] [address], [facility] PT Coag (PPP) [Time] 21.4 s High 12.3-14.8 [facility] Comment on above: Order Comment: No: D o not add to previous draw Result Comment: ALL RESULTS MUST BE INTERPRETED WITH RESPECT TO BLOOD DRAWING ARTIFACT OR DILUTION ERROR OF ANTICOAGULANT AT THE TIME OF SAMPLING. Performed By: #### 1 0070, 51840 #### [facility] [address] [place] [address], [facility] CBC COMPLETE BLOOD COUNTon 06-18-2019 Erythrocyte distribution width (RBC) [Ratio] 14.6 % Normal 11.5-15.0 [facility] Comment on above: Order Comment: Unkno wn Performed By: #### 8 [id number] #### [facility] [address] [place] [address], [facility] Hematocrit (Bld) [Volume fraction] 41.7 % Normal 36.0-45.0 [facility] Comment on above: Order Comment: Unkno wn Performed By: #### 8 5499 #### [facility] [address] [place] [address], [facility] Hemoglobin (Bld) [Mass/Vol] 13.4 g/dL Normal 12.0-15.0 [facility] Comment on above: Order Comment: Unkno wn Performed By: #### 8 5499 #### [facility] [address] [place] [address], [facility] MCH (RBC) [Entitic mass] 29.0 pg Normal 27.0-33.0 [facility] Comment on above: Order Comment: Unkno wn Performed By: #### 8 5499 #### [facility] [address] [place] [address], [place] MCHC (RBC) [Mass/Vol] 32.1 g/dL Normal 32.0-35.0 [facility] Comment on above: Order Comment: Unkno wn Performed By: #### 8 5499 #### [facility] [address] MCV (RBC) [Entitic vol] 90.3 fL Normal 82.0-98.0 [facility] Comment on above: Order Comment: Unkno wn Performed By: #### 8 5499 #### [facility] [address] [place] [address], [facility] Nucleated RBC/100 WBC (Bld) [Ratio] 0 % Normal 0-0 [facility] Comment on above: Order Comment: Unkno wn Performed By: #### 8 5499 #### [facility] [address] [place] [address], [facility] PLAT CNT 294 10*3/uL Normal 150-400 The [facility] Comment on above: Order Comment: Unkno wn Performed By: #### 8 5499 #### [facility] [address] [facility] RBC (Bld) [#/Vol] 4.62 10*6/uL Normal 3.80-5.00 [facility] Comment on above: Order Comment: Unkno wn Performed By: #### 8 [id number] #### [facility] [address] [place] [address], [facility] WBC (Bld) [#/Vol] 9.33 10*3/uL Normal 4.00-10.60 [facility] Comment on above: Order Comment: Unkno wn Performed By: #### 8 5499 #### [facility] [address] [place] [address], [facility] CBC W/DIFFon 04-17-2020 ABS IMM GRANS 0.0 10*3/uL Normal 0.0-0.2 The [facility] Comment on above: Order Comment: No: D o not add to previous draw Performed By: #### 8 5499 #### [facility] [address] [place] [address], [facility] ABS NEUTROPHILS 6.4 10*3/uL Normal 1.6-7.6 The [facility] Comment on above: Order Comment: No: D o not add to previous draw Performed By: #### 8 5499 #### [facility] [address] [place] [address], [facility] Basophils (Bld) [#/Vol] 0.1 10*3/uL Normal 0.0-0.2 The [facility] Comment on above: Order Comment: No: D o not add to previous draw Performed By: #### 8 5499 #### [facility] [address] [place] [address], [place] Basophils/100 WBC (Bld) 0.8 % Normal 0.0-1.0 [facility] Comment on above: Order Comment: No: D o not add to previous draw Performed By: #### 8 5499 #### [facility] [address] [place] [address], [place] Eosinophils (Bld) [#/Vol] 0.4 10*3/uL Normal 0.0-0.5 [facility] Comment on above: Order Comment: No: D o not add to previous draw Performed By: #### 8 5499 #### [facility] [address] [place] [address], [place] Eosinophils/100 WBC (Bld) 3.3 % Normal 0.0-6.0 [facility] Comment on above: Order Comment: No: D o not add to previous draw Performed By: #### 8 5499 #### [facility] [address] [place] [address], [place] Erythrocyte distribution width (RBC) [Ratio] 14.6 % Normal 11.5-15.0 [facility] Comment on above: Order Comment: No: D o not add to previous draw Performed By: #### 8 [id number] #### [facility] [address] [place] [address], [place] Hematocrit (Bld) [Volume fraction] 43.6 % Normal 36.0-45.0 [facility] Comment on above: Order Comment: No: D o not add to previous draw Performed By: #### 8 5499 #### [facility] [address] [place] [address], [facility] Hemoglobin (Bld) [Mass/Vol] 14.1 g/dL Normal 12.0-15.0 [facility] Comment on above: Order Comment: No: D o not add to previous draw Performed By: #### 8 5499 #### [facility] [address] [place] [address], [facility] IMMATURE GRANS 0.4 % Normal 0.0-1.0 The [facility] Comment on above: Order Comment: No: D o not add to previous draw Performed By: #### 8 5499 #### [facility] [address] [place] [address], [facility] Lymphocytes (Bld) [#/Vol] 3.2 10*3/uL Normal 1.2-4.0 [facility] Comment on above: Order Comment: No: D o not add to previous draw Performed By: #### 8 [id number] #### [facility] [address] [facility] [place] [address], [facility] Lymphocytes/100 WBC (Bld) 29.7 % Normal 20.0-45.0 [facility] Comment on above: Order Comment: No: D o not add to previous draw Performed By: #### 8 [id number] #### [facility] [address] [place] [address], [facility] MCH (RBC) [Entitic mass] 29.1 pg Normal 27.0-33.0 [facility] Comment on above: Order Comment: No: D o not add to previous draw Performed By: #### 8 [id number] #### [facility] [address] [place] [address], [facility] MCHC (RBC) [Mass/Vol] 32.3 g/dL Normal 32.0-35.0 [facility] Comment on above: Order Comment: No: D o not add to previous draw Performed By: #### 8 5499 #### [facility] [address] [place] [address], [facility] MCV (RBC) [Entitic vol] 89.9 fL Normal 82.0-98.0 [facility] Comment on above: Order Comment: No: D o not add to previous draw Performed By: #### 8 5499 #### [facility] [address] [place] [address], [facility] Monocytes (Bld) [#/Vol] 0.7 10*3/uL Normal 0.1-1.0 [facility] Comment on above: Order Comment: No: D o not add to previous draw Performed By: #### 8 [id number] #### [facility] [address] [place] [address], [facility] MONOS 6.8 % Normal 5.0-12.0 [facility] Comment on above: Order Comment: No: D o not add to previous draw Performed By: #### 8 [id number] #### [facility] [address] [place] [address], [facility] Neutrophils/100 WBC (Bld) 59.0 % Normal 40.0-72.0 [facility] Comment on above: Order Comment: No: D o not add to previous draw Performed By: #### 8 [id number] #### [facility] [address] [place] [address], [facility] Nucleated RBC/100 WBC (Bld) [Ratio] 0 % Normal 0-0 [facility] Comment on above: Order Comment: No: D o not add to previous draw Performed By: #### 8 [id number] #### [facility] [address] [place] [id number], [facility] PLAT CNT 332 10*3/uL Normal 150-400 The [facility] Comment on above: Order Comment: No: D o not add to previous draw Performed By: #### 8 [id number] #### [facility] [address] [place] [address], [place] RBC (Bld) [#/Vol] 4.85 10*6/uL Normal 3.80-5.00 The [facility] Comment on above: Order Comment: No: D o not add to previous draw Performed By: #### 8 [id number] #### [facility] [address] [place] [address], [place] WBC (Bld) [#/Vol] 10.90 10*3/uL High 4.00-10.60 The [facility] Comment on above: Order Comment: No: D o not add to previous draw Performed By: #### 8 5499 #### [facility] [address] [place] [address], [place] POC GLUCOSE LABon 04-17-2020 Glucose [Mass/Vol] 109 mg/dL High 70-[address] [facility] Comment on above: Performed By: #### 3 1792 #### [facility] [address] [place] [address], [place] Glucose [Mass/Vol] 93 mg/dL Normal 70-[address] [facility] Comment on above: Performed By: #### 3 5200 #### [facility] [address] [place] [address], [place] Glucose [Mass/Vol] 101 mg/dL High 70-[address] [facility] Comment on above: Performed By: #### 8 5499 ####[facility] [place] [address], [place] Glucose [Mass/Vol] 106 mg/dL High 70-[address] [facility] Comment on above: Performed By: #### 8 5499 #### [facility] [address] [place] [address], [place] *BLOOD CULTUREon 04-16-2020 *BLOOD CULTURE Clinical Report: (D) Specimen: BLOOD CULTURE Collected: 04/16/2020 00:31 Status: Final Last Updated: 04/21/2020 06:49 CULT RES (Final) No Growth Day 5 Normal [facility] Comment on above: Performed By: #### 8 [id number] #### [facility] [address] [place] [address], [facility] APTTon 04-16-2020 aPTT Coag (Bld) [Time] 72.4 s Critically high 25.0-35.0 The [facility] Comment on above: Order Comment: [...] IU/ml . Performed By: #### 1 69, 62768 #### [facility] [address] [place] [address], [facility] BASIC METABOLIC PANELon 11-3 Calcium [Mass/Vol] 9.5 mg/dL Normal 8.6-10.[address] [facility] Comment on above: Order Comment: No: D o not add to previous draw Performed By: #### 1 69, 55893 #### [facility] [address] [place] [address], [facility] Chloride [Moles/Vol] 102 mmol/L Normal 98-107 The [facility] Comment on above: Order Comment: No: D o not add to previous draw Performed By: #### 1 0, 77826 #### [facility] [address] [place] [address], [place] CO2 [Moles/Vol] 25 mmol/L Normal 21-31 The [facility] Comment on above: Order Comment: No: D o not add to previous draw Performed By: #### 1 0070, 28363 #### [facility] [address] [place] [address], [place] Creatinine [Mass/Vol] 0.69 mg/dL Normal 0.60-1.20 The [facility] Comment on above: Order Comment: No: D o not add to previous draw Performed By: #### 1 0, 11301 #### [facility] [address] [place] [address], [place] GFR/1.73 sq M.predicted among blacks MDRD (S/P/Bld) [Vol rate/Area] mL/min/{1.73_m2} Normal >60 The [facility] Comment on above: Order Comment: No: D o not add to previous draw Performed By: #### 1 0, 69049 #### [facility] [address] [place] [address], [place] GFR/1.73 sq M.predicted among non-blacks MDRD (S/P/Bld) [Vol rate/Area] mL/min/{1.73_m2} Normal >60 The [facility] Comment on above: Order Comment: No: D o not add to previous draw Performed By: #### 1 0, 17904 #### [facility] [address] [place] [address], [place] Glucose [Mass/Vol] 102 mg/dL High 70-100 [facility] Comment on above: Order Comment: No: D o not add to previous draw Performed By: #### 1 0, 14385 #### [facility] [address] [place] [address], [place] Potassium [Moles/Vol] 3.5 mmol/L Normal 3.5-5.1 [facility] Comment on above: Order Comment: No: D o not add to previous draw Performed By: #### 1 0070, 33166 #### [facility] [address] [place] [address], [place] Sodium [Moles/Vol] 136 mmol/L Normal 136-[address] [facility] Comment on above: Order Comment: No: D o not add to previous draw Performed By: #### 1 0070, 29746 #### [facility] [address] [place] [address], [place] Urea nitrogen [Mass/Vol] 14 mg/dL Normal 7-25 [facility] Comment on above: Order Comment: No: D o not add to previous draw Performed By: #### 1 0, 81813 #### [facility] [address] [place] [address], [place] Calcium [Mass/Vol] 10.0 mg/dL Normal 8.6-10.[address] [facility] Comment on above: Order Comment: No: D o not add to previous draw Performed By: #### 3 1790 #### [facility] [address] [place] [address], [place] Chloride [Moles/Vol] 101 mmol/L Normal 98-107 [facility] Comment on above: Order Comment: No: D o not add to previous draw Performed By: #### 3 179 #### [facility] [address] [place] [address], [place] CO2 [Moles/Vol] 26 mmol/L Normal 21-31 [facility] Comment on above: Order Comment: No: D o not add to previous draw Performed By: #### 3 1790 #### [facility] [address] [place] [address], [place] Creatinine [Mass/Vol] 0.74 mg/dL Normal 0.60-1.20 The [facility] Comment on above: Order Comment: No: D o not add to previous draw Performed By: #### 3 179 #### [facility] [address] [place] [address], [place] GFR/1.73 sq M.predicted among blacks MDRD (S/P/Bld) [Vol rate/Area] mL/min/{1.73_m2} Normal >60 The [facility] Comment on above: Order Comment: No: D o not add to previous draw Performed By: #### 3 1791 #### [facility] [address] [place] [address], [place] GFR/1.73 sq M.predicted among non-blacks MDRD (S/P/Bld) [Vol rate/Area] mL/min/{1.73_m2} Normal >60 The [facility] Comment on above: Order Comment: No: D o not add to previous draw Performed By: #### 3 1790 #### [facility] [address] [place] [address], [place] Glucose [Mass/Vol] 109 mg/dL High 70-100 [facility] Comment on above: Order Comment: No: D o not add to previous draw Performed By: #### 3 1790 #### [facility] [address] [place] [address], [place] Potassium [Moles/Vol] 3.7 mmol/L Normal 3.5-5.1 The [facility] Comment on above: Order Comment: No: D o not add to previous draw Performed By: #### 3 1791 #### [facility] [address] [place] [address], [place] Sodium [Moles/Vol] 136 mmol/L Normal 136-[address] [facility] Comment on above: Order Comment: No: D o not add to previous draw Performed By: #### 3 1790 #### [facility] [address] [place] [address], [place] Urea nitrogen [Mass/Vol] 14 mg/dL Normal 7-25 The [facility] Comment on above: Order Comment: No: D o not add to previous draw Performed By: #### 3 1791 #### [facility] [address] [place] [address], [facility] CBC W/DIFFon 04-16-2020 ABS IMM GRANS 0.0 10*3/uL Normal 0.0-0.2 The [facility] Comment on above: Order Comment: No: D o not add to previous draw Performed By: #### 8 5499 #### [facility] [address] [place] [address], [facility] ABS NEUTROPHILS 7.2 10*3/uL Normal 1.6-7.6 The [facility] Comment on above: Order Comment: No: D o not add to previous draw Performed By: #### 8 5499 #### [facility] [address] [place] [id number], [facility] Basophils (Bld) [#/Vol] 0.1 10*3/uL Normal 0.0-0.2 The [facility] Comment on above: Order Comment: No: D o not add to previous draw Performed By: #### 8 5499 #### [facility] [address] [place] [id number], [facility] Basophils/100 WBC (Bld) 0.7 % Normal 0.0-1.0 The [facility] Comment on above: Order Comment: No: D o not add to previous draw Performed By: #### 8 5499 #### [facility] [address] [place] [address], [facility] Eosinophils (Bld) [#/Vol] 0.2 10*3/uL Normal 0.0-0.5 The [facility] Comment on above: Order Comment: No: D o not add to previous draw Performed By: #### 8 5499 #### [facility] [address] [place] [address], [facility] Eosinophils/100 WBC (Bld) 2.1 % Normal 0.0-6.0 The [facility] Comment on above: Order Comment: No: D o not add to previous draw Performed By: #### 8 5499 #### [facility] [address] [place] [address], [facility] Erythrocyte distribution width (RBC) [Ratio] 14.4 % Normal 11.5-15.0 The [facility] Comment on above: Order Comment: No: D o not add to previous draw Performed By: #### 8 5499 #### [facility] [address] [place] [address], [facility] Hematocrit (Bld) [Volume fraction] 43.2 % Normal 36.0-45.0 The [facility] Comment on above: Order Comment: No: D o not add to previous draw Performed By: #### 8 5499 #### [facility] [address] [place] [address], [facility] Hemoglobin (Bld) [Mass/Vol] 14.2 g/dL Normal 12.0-15.0 The [facility] Comment on above: Order Comment: No: D o not add to previous draw Performed By: #### 8 5499 #### [facility] [address] [place] [id number], [facility] IMMATURE GRANS 0.3 % Normal 0.0-1.0 The [facility] Comment on above: Order Comment: No: D o not add to previous draw Performed By: #### 8 5499 #### [facility] [address] [place] [id number], [facility] Lymphocytes (Bld) [#/Vol] 2.9 10*3/uL Normal 1.2-4.0 The [facility] Comment on above: Order Comment: No: D o not add to previous draw Performed By: #### 8 5499 #### [facility] [address] [place] [address], [place] Lymphocytes/100 WBC (Bld) 25.1 % Normal 20.0-45.0 The [facility] Comment on above: Order Comment: No: D o not add to previous draw Performed By: #### 8 5499 #### [facility] [address] [place] [id number], [facility] MCH (RBC) [Entitic mass] 29.5 pg Normal 27.0-33.0 The [facility] Comment on above: Order Comment: No: D o not add to previous draw Performed By: #### 8 5499 #### [facility] [address] [place] [address], [facility] MCHC (RBC) [Mass/Vol] 32.9 g/dL Normal 32.0-35.0 The [facility] Comment on above: Order Comment: No: D o not add to previous draw Performed By: #### 8 5499 #### [facility] [address] [place] [address], [facility] MCV (RBC) [Entitic vol] 89.8 fL Normal 82.0-98.0 The [facility] Comment on above: Order Comment: No: D o not add to previous draw Performed By: #### 8 5499 #### [facility] [address] [place] [address], [facility] Monocytes (Bld) [#/Vol] 0.9 10*3/uL Normal 0.1-1.0 The [facility] Comment on above: Order Comment: No: D o not add to previous draw Performed By: #### 8 5499 #### [facility] [address] [place] [address], [facility] MONOS 8.0 % Normal 5.0-12.0 The [facility] Comment on above: Order Comment: No: D o not add to previous draw Performed By: #### 8 5499 #### [facility] [address] [place] [id number], [facility] Neutrophils/100 WBC (Bld) 63.8 % Normal 40.0-72.0 The [facility] Comment on above: Order Comment: No: D o not add to previous draw Performed By: #### 8 5499 #### [facility] [address] [place] [address], [facility] Nucleated RBC/100 WBC (Bld) [Ratio] 0 % Normal 0-0 The [facility] Comment on above: Order Comment: No: D o not add to previous draw Performed By: #### 8 5499 #### [facility] [address] [place] [address], [facility] PLAT CNT 335 10*3/uL Normal 150-400 The [facility] Comment on above: Order Comment: No: D o not add to previous draw Performed By: #### 8 5499 #### [facility] [address] [place] [address], [facility] RBC (Bld) [#/Vol] 4.81 10*6/uL Normal 3.80-5.00 The [facility] Comment on above: Order Comment: No: D o not add to previous draw Performed By: #### 8 5499 #### [place] [address], [facility] WBC (Bld) [#/Vol] 11.34 10*3/uL High 4.00-10.60 [facility] Comment on above: Order Comment: No: D o not add to previous draw Performed By: #### 8 5499 #### [place] [address], [facility] CTA CHESTon 04-16-2020 CTA CHEST [facility] Department of Radiology [address] [place] [address] [id number] Patient Name: HORTENSIA BATES : 1955 Sex: F Age: Race: White Pt. Location: [address] [place] [address] Patient Status: D Ordered Date: 04/16/2020 9:05:00 [...] criteria Electronically signed: Jax Perez. Transcribed by: [email or web address], User Resident: Electronically Signed by: LA NENA SCHERER @ 05/28/2020 12:26 AM Normal The [facility] Comment on above: Order Comment: Other , Planned for AFib albation, anatomy of pulmonary veins MAGNESIUM BLOODon 04-16-2020 Magnesium [Mass/Vol] 1.7 mg/dL Low 1.9-2.7 The [facility] Comment on above: Order Comment: No: D o not add to previous draw Performed By: #### 1 4290, 87484 #### [facility] [address] [employer] Magnesium [Mass/Vol] 1.8 mg/dL Low 1.9-2.7 The [facility] Comment on above: Order Comment: No: D o not add to previous draw Performed By: #### 1 0070, 52941 #### [facility] [address] [place] [address], [facility] PHOSPHORUS BLOODon 0 Phosphate [Mass/Vol] 3.6 mg/dL Normal 2.5-5.0 The [facility] Comment on above: Order Comment: No: D o not add to previous draw Performed By: #### 1 0070, 29834 #### [facility] [address] [place] [address], [facility] POC GLUCOSE LABon 04-16-2020 Glucose [Mass/Vol] 111 mg/dL High 70-[address] [facility] Comment on above: Performed By: #### 8 5499 ####[facility] [facility] [place] [place] [address], [place] Glucose [Mass/Vol] 122 mg/dL High 70-[address] [facility] Comment on above: Performed By: #### 3 5200 #### [facility] [address] [place] [address], [place] Glucose [Mass/Vol] 105 mg/dL High 70-[address] [facility] Comment on above: Performed By: #### 8 5499 ####[facility] [place] [address], [place] Glucose [Mass/Vol] 106 mg/dL High 70-[address] [facility] Comment on above: Performed By: #### 8 5499 #### [facility] [address] [place] [address], [place] PROTHROMBIN TIMEon 0 INR Coag (PPP) [Relative time] 2.24 {INR} High 0.91-1.16 The [facility] Comment on above: Order Comment: [...] CHEST 1995;108:231S-246S. Performed By: #### 1 0070, 93066 #### [facility] [address] PT Coag (PPP) [Time] 24.9 s High 12.3-14.8 The [facility] Comment on above: Order Comment: No: D o not add to previous draw Result Comment: ALL RESULTS MUST BE INTERPRETED WITH RESPECT TO BLOOD DRAWING ARTIFACT OR DILUTION ERROR OF ANTICOAGULANT AT THE TIME OF SAMPLING. Performed By: #### 1 0070, 27759 #### [facility] [address] [facility] TROPONIN-Ion 04-16-2020 Troponin I.cardiac [Mass/Vol] 0.01 ng/mL Normal 0.00-0.04 The [facility] Comment on above: Order Comment: No: D o not add to previous draw Result Comment: REFE RENCE RANGES: 0.00 - 0.04 ng/ml NORMAL 0.05 - 0.50 ng/ml INDETERMINATE > 0.50 ng/ml CONSISTENT WITH AN M.I. Performed By: #### 3 5200 #### [facility] [address] Troponin I.cardiac [Mass/Vol] 0.01 ng/mL Normal 0.00-0.04 The [facility] Comment on above: Order Comment: No: D o not add to previous draw Result Comment: REFE RENCE RANGES: 0.00 - 0.04 ng/ml NORMAL 0.05 - 0.50 ng/ml INDETERMINATE > 0.50 ng/ml CONSISTENT WITH AN M.I. Performed By: #### 3 1791 #### [facility] [address] Troponin I.cardiac [Mass/Vol] 0.01 ng/mL Normal 0.00-0.04 The [facility] Comment on above: Order Comment: No: D o not add to previous draw Result Comment: REFE RENCE RANGES: 0.00 - 0.04 ng/ml NORMAL 0.05 - 0.50 ng/ml INDETERMINATE > 0.50 ng/ml CONSISTENT WITH AN M.I. Performed By: #### 3 1791 #### [facility] [address] UFH HEPARIN ASSAYon 04-16-20 20 UNFRACTIONATED HEPARIN 0.28 IU/mL Low 0.30-0.70 The [facility] Comment on above: Result Comment: Bell roxaban and Apixaban will interfere with the anti Xa assay used to monitor UFH and LMWH. Performed By: #### 1 0070, 66811 #### [facility] [address] [facility] [address] MAGNESIUM BLOODon 04-01-2020 Magnesium [Mass/Vol] 2.0 mg/dL Normal 1.9-2.7 The [facility] Comment on above: Order Comment: No: D o not add to previous draw Performed By: #### 1 0070, 39640 #### [facility] [address] [place] [address], [facility] POTASSIUM BLOODon 04-01-2020 Potassium [Moles/Vol] 3.6 mmol/L Normal 3.5-5.1 The [facility] Comment on above: Order Comment: No: D o not add to previous draw Performed By: #### 1 0070, 26711 #### [facility] [address] [facility]. [address] PROTHROMBIN TIMEon 0 INR Coag (PPP) [Relative time] 1.99 {INR} High 0.91-1.16 The [facility] Comment on above: Order Comment: Lashaun wn Result Comment: ACCC P RECOMMENDED INR [...] 1995;108:231S-246S. Performed By: #### 8 5499 #### [facility] [address] [facility]. [address] PT Coag (PPP) [Time] 22.7 s High 12.3-14.8 The [facility] Comment on above: Order Comment: Lashaun wn Result Comment: ALL RESULTS MUST BE INTERPRETED WITH RESPECT TO BLOOD DRAWING ARTIFACT OR DILUTION ERROR OF ANTICOAGULANT AT THE TIME OF SAMPLING. Performed By: #### 8 5499 #### [facility] [address] [facility] BASIC METABOLIC PANELon 11- Calcium [Mass/Vol] 8.8 mg/dL Normal 8.6-10.3 [facility] Comment on above: Order Comment: No: D o not add to previous draw Performed By: #### 1 0070, 51075 #### [facility] [address] [place] [address], [place] Chloride [Moles/Vol] 103 mmol/L Normal 98-107 The [facility] Comment on above: Order Comment: No: D o not add to previous draw Performed By: #### 1 0070, 11575 #### [facility] [address] [place] [address], [place] CO2 [Moles/Vol] 26 mmol/L Normal 21-31 [facility] Comment on above: Order Comment: No: D o not add to previous draw Performed By: #### 1 0, 06019 #### [facility] [address] [place] [address], [place] Creatinine [Mass/Vol] 0.75 mg/dL Normal 0.60-1.20 The [facility] Comment on above: Order Comment: No: D o not add to previous draw Performed By: #### 1 0, 33531 #### [facility] [address] [place] [address], [place] GFR/1.73 sq M.predicted among blacks MDRD (S/P/Bld) [Vol rate/Area] mL/min/{1.73_m2} Normal >60 The [facility] Comment on above: Order Comment: No: D o not add to previous draw Performed By: #### 1 0, 50367 #### [facility] [address] [place] [address], [place] GFR/1.73 sq M.predicted among non-blacks MDRD (S/P/Bld) [Vol rate/Area] mL/min/{1.73_m2} Normal >60 The [facility] Comment on above: Order Comment: No: D o not add to previous draw Performed By: #### 1 0070, 08148 #### [facility] [address] [place] [address], [place] Glucose [Mass/Vol] 88 mg/dL Normal 70-[address] [facility] Comment on above: Order Comment: No: D o not add to previous draw Performed By: #### 1 69, 53624 #### [facility] [address] [place] [address], [place] Potassium [Moles/Vol] 3.8 mmol/L Normal 3.5-5.1 The [facility] Comment on above: Order Comment: No: D o not add to previous draw Performed By: #### 1 69, 42758 #### [facility] [address] [place] [address], [place] Sodium [Moles/Vol] 135 mmol/L Low 136-[address] [facility] Comment on above: Order Comment: No: D o not add to previous draw Performed By: #### 1 69, 68281 #### [facility] [address] [place] [address], [place] Urea nitrogen [Mass/Vol] 17 mg/dL Normal 7-25 The [facility] Comment on above: Order Comment: No: D o not add to previous draw Performed By: #### 1 69, 29574 #### [facility] [address] [place] [address], [place] MAGNESIUM BLOODon 03-31-2020 Magnesium [Mass/Vol] 1.9 mg/dL Normal 1.9-2.7 The [facility] Comment on above: Order Comment: No: D o not add to previous draw Performed By: #### 1 69, 74874 #### [facility] [address] [place] [address], [place] POC GLUCOSE LABon 03-31-2020 Glucose [Mass/Vol] 95 mg/dL Normal 70-[address] [facility] Comment on above: Performed By: #### 3 5200 #### [facility] [address] [place] [address], [place] Glucose [Mass/Vol] 86 mg/dL Normal 70-[address] [facility] Comment on above: Performed By: #### 8 5499 #### [facility] [address] [place] [address], [place] Glucose [Mass/Vol] 82 mg/dL Normal 70-[address] [facility] Comment on above: Performed By: #### 3 1792 #### [facility] [address] [place] [address], [place] Glucose [Mass/Vol] 92 mg/dL Normal 70-[address] [facility] Comment on above: Performed By: #### 8 5499 ####[facility] [place] [address], [facility] Glucose [Mass/Vol] 96 mg/dL Normal 70-[address] [facility] Comment on above: Performed By: #### 8 5499 ####[facility] [facility] [place] [address] [place] [address] PROTHROMBIN TIMEon 0 INR Coag (PPP) [Relative time] 1.80 {INR} High 0.91-1.16 The [facility] Comment on above: Order Comment: [...] CHEST 1995;108:231S-246S. Performed By: #### 1 69, 54013 #### [facility] [address] [place] [id number], [facility] PT Coag (PPP) [Time] 21.0 s High 12.3-14.8 [facility] Comment on above: Order Comment: No: D o not add to previous draw Result Comment: ALL RESULTS MUST BE INTERPRETED WITH RESPECT TO BLOOD DRAWING ARTIFACT OR DILUTION ERROR OF ANTICOAGULANT AT THE TIME OF SAMPLING. Performed By: #### 1 69, 10656 #### [facility] [address] BASIC METABOLIC PANELon 11-1 Calcium [Mass/Vol] 9.0 mg/dL Normal 8.6-10.3 [facility] Comment on above: Order Comment: No: D o not add to previous draw Performed By: #### 1 69, 11886 #### [facility] [address] [place] [address], [facility] Chloride [Moles/Vol] 101 mmol/L Normal 98-107 The [facility] Comment on above: Order Comment: No: D o not add to previous draw Performed By: #### 1 69, 43738 #### [facility] [address] [place] [address], [place] CO2 [Moles/Vol] 25 mmol/L Normal 21-31 [facility] Comment on above: Order Comment: No: D o not add to previous draw Performed By: #### 1 69, 68280 #### [facility] [address] [place] [address], [place] Creatinine [Mass/Vol] 0.90 mg/dL Normal 0.60-1.20 The [facility] Comment on above: Order Comment: No: D o not add to previous draw Performed By: #### 1 0070, 90902 #### [facility] [address] [place] [address], [place] GFR/1.73 sq M.predicted among blacks MDRD (S/P/Bld) [Vol rate/Area] mL/min/{1.73_m2} Normal >60 The [facility] Comment on above: Order Comment: No: D o not add to previous draw Performed By: #### 1 0, 96764 #### [facility] [address] [place] [address], [place] GFR/1.73 sq M.predicted among non-blacks MDRD (S/P/Bld) [Vol rate/Area] mL/min/{1.73_m2} Normal >60 The [facility] Comment on above: Order Comment: No: D o not add to previous draw Performed By: #### 1 69, 69575 #### [facility] [address] [place] [address], [place] Glucose [Mass/Vol] 77 mg/dL Normal 70-[address] [facility] Comment on above: Order Comment: No: D o not add to previous draw Performed By: #### 1 0, 37273 #### [facility] [address] [place] [address], [place] Potassium [Moles/Vol] 4.0 mmol/L Normal 3.5-5.1 [facility] Comment on above: Order Comment: No: D o not add to previous draw Performed By: #### 1 0, 77431 #### [facility] [address] [place] [address], [place] Sodium [Moles/Vol] 135 mmol/L Low 136-[address] [facility] Comment on above: Order Comment: No: D o not add to previous draw Performed By: #### 1 0, 44787 #### [facility] [address] [place] [address], [facility] Urea nitrogen [Mass/Vol] 17 mg/dL Normal 7-25 The [facility] Comment on above: Order Comment: No: D o not add to previous draw Performed By: #### 1 0070, 23644 #### [facility] [address] [place] [address], [facility] CBC COMPLETE BLOOD COUNTon 05-30-2019 Erythrocyte distribution width (RBC) [Ratio] 14.9 % Normal 11.5-15.0 [facility] Comment on above: Order Comment: No: D o not add to previous draw Performed By: #### 8 5499 #### [facility] [address] [place] [address], [facility] Hematocrit (Bld) [Volume fraction] 47.5 % High 36.0-45.0 [facility] Comment on above: Order Comment: No: D o not add to previous draw Performed By: #### 8 5499 #### [facility] [address] [place] [address], [facility] Hemoglobin (Bld) [Mass/Vol] 15.3 g/dL High 12.0-15.0 [facility] Comment on above: Order Comment: No: D o not add to previous draw Performed By: #### 8 5499 #### [facility] [address] [place] [address], [facility] MCH (RBC) [Entitic mass] 29.7 pg Normal 27.0-33.0 [facility] Comment on above: Order Comment: No: D o not add to previous draw Performed By: #### 8 5499 #### [facility] [address] [place] [address], [place] MCHC (RBC) [Mass/Vol] 32.2 g/dL Normal 32.0-35.0 [facility] Comment on above: Order Comment: No: D o not add to previous draw Performed By: #### 8 5499 #### [facility] [address] [place] [address], [facility] MCV (RBC) [Entitic vol] 92.1 fL Normal 82.0-98.0 [facility] Comment on above: Order Comment: No: D o not add to previous draw Performed By: #### 8 5499 #### [facility] [address] [place] [address], [facility] Nucleated RBC/100 WBC (Bld) [Ratio] 0 % Normal 0-0 [facility] Comment on above: Order Comment: No: D o not add to previous draw Performed By: #### 8 5499 #### [facility] [address] [place] [address], [place] PLAT CNT 321 10*3/uL Normal 150-400 [facility] Comment on above: Order Comment: No: D o not add to previous draw Performed By: #### 8 5499 #### [facility] [address] [place] [id number], [facility] [facility] RBC (Bld) [#/Vol] 5.16 10*6/uL High 3.80-5.00 The [facility] Comment on above: Order Comment: No: D o not add to previous draw Performed By: #### 8 [id number] #### [facility] [address] [place] [id number], [facility] WBC (Bld) [#/Vol] 12.02 10*3/uL High 4.00-10.60 The [facility] Comment on above: Order Comment: No: D o not add to previous draw Performed By: #### 8 [id number] #### [facility] [address] [place] [id number], [facility] Cardiovascular Lab Reporton 03-30-2020 Cardiovascular Lab Report [facility] Patient Name: [facility] Hortensia Berry MR #: [id number] Department of Physician: Jessica Lopez M.D. Division of Service Date: 03/30/2020 Cardiology Birthdate: 1955 Adult Cardiovascular Room #: 3AB [id number] [place] [address] [address] [place] [address] Cardiovascular Laboratory Report CLINICAL PRESENTATION: The patient [...] infiltrated over the right radial artery. A 6-Iraqi Terumo Glidesheath slender was placed in right radial artery. The radial anti-vasospasm cocktail of verapamil 2.5 mg and nitroglycerin 200 mcg was administered through the sheath. All catheter exchanges were made over the Magic Torque guidewire. A 5-Iraqi JR5 was used to engage the right coronary artery. A 5-Iraqi JL3.5 was used to engage the left [...] Arango M.D. Date Trans: 03/30/2020 01:43 P/mmo [id number] Normal The [facility] MAGNESIUM BLOODon 03-30-2020 Magnesium [Mass/Vol] 2.1 mg/dL Normal 1.9-2.7 The [facility] Comment on above: Order Comment: No: D o not add to previous draw Performed By: #### 1 0070, 29004 #### [facility] [address] POC GLUCOSE LABon 03-30-2020 Glucose [Mass/Vol] 94 mg/dL Normal 70-[address] [facility] Comment on above: Performed By: #### 8 5499 ####[facility] [place] [address], [facility] Glucose [Mass/Vol] 95 mg/dL Normal 70-100 [facility] Comment on above: Performed By: #### 3 5200 #### [facility] [address] [facility] [place] [address], [facility] Glucose [Mass/Vol] 86 mg/dL Normal 70-[address] [facility] Comment on above: Performed By: #### 8 5499 ####[facility] [place] [address], [facility] PROTHROMBIN TIMEon 0 INR Coag (PPP) [Relative time] 1.88 {INR} High 0.91-1.16 The [facility] Comment on above: Order Comment: Yes: [...] 1995;108:231S-246S. Performed By: #### 8 5499 #### [facility] [address] PT Coag (PPP) [Time] 21.7 s High 12.3-14.8 The [facility] Comment on above: Order Comment: Yes: Add to Previous draw if able Result Comment: ALL RESULTS MUST BE INTERPRETED WITH RESPECT TO BLOOD DRAWING ARTIFACT OR DILUTION ERROR OF ANTICOAGULANT AT THE TIME OF SAMPLING. Performed By: #### 8 [id number] #### [facility] [address] [facility]. [address] *SARS-CoV-2 COVID-19on 03-29 SARS-CoV-2 (COVID-19) RNA JAS+probe Ql (Unsp spec) Not detected Normal Not Detected The [facility] Comment on above: Order Comment: The A ptima SARS-CoV-2 assay is a nucleic acid amplification test intended for the qualitative detection of RNA from SARS-CoV-2 isolated and purified from nasopharyngeal (TREASURY MANAGEMENT SALES CONSULTANT),oropharyngeal (OP), nasal swab, sputum, and bronchoalveolar lavage (BAL) specimens from patients with signs and symptoms of infection who are suspected of COVID-19. Results are for the identification of SARS-CoV-2 RNA. The SARS-CoV-2 RNA is generally detectable during the acute phase of infection. The Aptima SARS-CoV-2 Assay on the [employer] system is intended for use by laboratory personnel specifically instructed and trained in the operation of the [employer] system. The Aptima SARS-CoV-2 assay is [...] information. Performed By: #### 3 1792 #### [address] APTTon 03-29-2020 aPTT Coag (Bld) [Time] 52.2 s High 25.0-35.0 The [facility] Comment on above: Order Comment: [...] >0.10 Performed By: #### 8 5499 #### [address] CBC W/DIFFon 03-29-2020 ABS IMM GRANS 0.0 10*3/uL Normal 0.0-0.2 The [facility] Comment on above: Order Comment: No: D o not add to previous draw Performed By: #### 8 5499 #### [facility] [address] ABS NEUTROPHILS 7.5 10*3/uL Normal 1.6-7.6 The [facility] Comment on above: Order Comment: No: D o not add to previous draw Performed By: #### 8 5499 #### [facility] [address] [place] [address], [facility] Basophils (Bld) [#/Vol] 0.1 10*3/uL Normal 0.0-0.2 The [facility] Comment on above: Order Comment: No: D o not add to previous draw Performed By: #### 8 5499 #### [facility] [address] [place] [address], [place] Basophils/100 WBC (Bld) 0.6 % Normal 0.0-1.0 [facility] Comment on above: Order Comment: No: D o not add to previous draw Performed By: #### 8 5499 #### [facility] [address] [place] [address], [place] Eosinophils (Bld) [#/Vol] 0.3 10*3/uL Normal 0.0-0.5 [facility] Comment on above: Order Comment: No: D o not add to previous draw Performed By: #### 8 5499 #### [facility] [address] [place] [address], [place] Eosinophils/100 WBC (Bld) 2.1 % Normal 0.0-6.0 [facility] Comment on above: Order Comment: No: D o not add to previous draw Performed By: #### 8 5499 #### [facility] [address] [place] [address], [place] Erythrocyte distribution width (RBC) [Ratio] 14.7 % Normal 11.5-15.0 [facility] Comment on above: Order Comment: No: D o not add to previous draw Performed By: #### 8 5499 #### [facility] [address] [place] [address], [place] Hematocrit (Bld) [Volume fraction] 48.0 % High 36.0-45.0 [facility] Comment on above: Order Comment: No: D o not add to previous draw Performed By: #### 8 5499 #### [facility] [address] [place] [address], [facility] Hemoglobin (Bld) [Mass/Vol] 15.5 g/dL High 12.0-15.0 [facility] Comment on above: Order Comment: No: D o not add to previous draw Performed By: #### 8 5499 #### [facility] [address] [place] [address], [facility] IMMATURE GRANS 0.3 % Normal 0.0-1.0 The [facility] Comment on above: Order Comment: No: D o not add to previous draw Performed By: #### 8 5499 #### [facility] [address] [place] [address], [facility] Lymphocytes (Bld) [#/Vol] 3.7 10*3/uL Normal 1.2-4.0 [facility] Comment on above: Order Comment: No: D o not add to previous draw Performed By: #### 8 [id number] #### [facility] [address] [facility] [place] [place] [address], [facility] Lymphocytes/100 WBC (Bld) 29.6 % Normal 20.0-45.0 [facility] Comment on above: Order Comment: No: D o not add to previous draw Performed By: #### 8 5499 #### [facility] [address] [place] [id number], [facility] MCH (RBC) [Entitic mass] 28.8 pg Normal 27.0-33.0 [facility] Comment on above: Order Comment: No: D o not add to previous draw Performed By: #### 8 5499 #### [facility] [address] [place] [address], [facility] MCHC (RBC) [Mass/Vol] 32.3 g/dL Normal 32.0-35.0 [facility] Comment on above: Order Comment: No: D o not add to previous draw Performed By: #### 8 [id number] #### [facility] [address] [place] [address], [facility] MCV (RBC) [Entitic vol] 89.1 fL Normal 82.0-98.0 [facility] Comment on above: Order Comment: No: D o not add to previous draw Performed By: #### 8 5499 #### [facility] [address] [place] [address], [facility] Monocytes (Bld) [#/Vol] 0.9 10*3/uL Normal 0.1-1.0 [facility] Comment on above: Order Comment: No: D o not add to previous draw Performed By: #### 8 [id number] #### [facility] [address] [place] [address], [facility] MONOS 7.2 % Normal 5.0-12.0 [facility] Comment on above: Order Comment: No: D o not add to previous draw Performed By: #### 8 5499 #### [facility] [address] [facility] [place] [place] [address], [facility] Neutrophils/100 WBC (Bld) 60.2 % Normal 40.0-72.0 [facility] Comment on above: Order Comment: No: D o not add to previous draw Performed By: #### 8 5499 #### [facility] [address] [facility] [place] [place] [address], [facility] Nucleated RBC/100 WBC (Bld) [Ratio] 0 % Normal 0-0 The [facility] Comment on above: Order Comment: No: D o not add to previous draw Performed By: #### 8 5499 #### [facility] [address] [place] [id number], [facility] PLAT CNT 366 10*3/uL Normal 150-400 The [facility] Comment on above: Order Comment: No: D o not add to previous draw Performed By: #### 8 5499 #### [facility] [address] [place] [address], [place] RBC (Bld) [#/Vol] 5.39 10*6/uL High 3.80-5.00 [facility] Comment on above: Order Comment: No: D o not add to previous draw Performed By: #### 8 5499 #### [facility] [address] [place] [address], [place] WBC (Bld) [#/Vol] 12.38 10*3/uL High 4.00-10.60 The [facility] Comment on above: Order Comment: No: D o not add to previous draw Performed By: #### 8 5499 #### [facility] [address] [place] [address], [place] COMP METABOLIC PANELon 03-29 Albumin [Mass/Vol] 4.1 g/dL Normal 3.5-5.7 [facility] Comment on above: Order Comment: No: D o not add to previous draw Performed By: #### 1 69, 91642 #### [facility] [address] [place] [address], [place] ALKALINE PHOSPH 48 IU/L Normal 34-104 The [facility] Comment on above: Order Comment: No: D o not add to previous draw Performed By: #### 1 69, 55095 #### [facility] [address] [place] [address], [place] ALT [Catalytic activity/Vol] 19 U/L Normal 7-52 [facility] Comment on above: Order Comment: No: D o not add to previous draw Performed By: #### 1 69, 61086 #### [facility] [address] [place] [address], [place] AST [Catalytic activity/Vol] 19 U/L Normal 13-39 The [facility] Comment on above: Order Comment: No: D o not add to previous draw Performed By: #### 1 0, 06539 #### [facility] [address] [place] [address], [place] Bilirubin [Mass/Vol] 0.8 mg/dL Normal 0.3-1.0 The [facility] Comment on above: Order Comment: No: D o not add to previous draw Performed By: #### 1 0, 65537 #### [facility] [address] [place] [address], [place] Calcium [Mass/Vol] 9.8 mg/dL Normal 8.6-10.3 [facility] Comment on above: Order Comment: No: D o not add to previous draw Performed By: #### 1 0, 67275 #### [facility] [address] [place] [address], [place] Chloride [Moles/Vol] 100 mmol/L Normal 98-107 [facility] Comment on above: Order Comment: No: D o not add to previous draw Performed By: #### 1 69, 95021 #### [facility] [address] [place] [address], [place] CO2 [Moles/Vol] 26 mmol/L Normal 21-31 [facility] Comment on above: Order Comment: No: D o not add to previous draw Performed By: #### 1 69, 00980 #### [facility] [address] [place] [address], [place] Creatinine [Mass/Vol] 0.71 mg/dL Normal 0.60-1.20 The [facility] Comment on above: Order Comment: No: D o not add to previous draw Performed By: #### 1 69, 37769 #### [facility] [address] [place] [address], [place] GFR/1.73 sq M.predicted among blacks MDRD (S/P/Bld) [Vol rate/Area] mL/min/{1.73_m2} Normal >60 The [facility] Comment on above: Order Comment: No: D o not add to previous draw Performed By: #### 1 0, 10273 #### [facility] [address] [place] [address], [place] GFR/1.73 sq M.predicted among non-blacks MDRD (S/P/Bld) [Vol rate/Area] mL/min/{1.73_m2} Normal >60 [facility] Comment on above: Order Comment: No: D o not add to previous draw Performed By: #### 1 0, 56964 #### [facility] [address] [place] [address], [place] Glucose [Mass/Vol] 107 mg/dL High 70-[address] [facility] Comment on above: Order Comment: No: D o not add to previous draw Performed By: #### 1 69, 41132 #### [facility] [address] [place] [address], [place] Potassium [Moles/Vol] 3.9 mmol/L Normal 3.5-5.1 [facility] Comment on above: Order Comment: No: D o not add to previous draw Performed By: #### 1 69, 32767 #### [facility] [address] [place] [address], [place] Protein [Mass/Vol] 7.5 g/dL Normal 6.0-8.3 [facility] Comment on above: Order Comment: No: D o not add to previous draw Performed By: #### 1 0, 49094 #### [facility] [address] [place] [address], [place] Sodium [Moles/Vol] 136 mmol/L Normal 136-[address] [facility] Comment on above: Order Comment: No: D o not add to previous draw Performed By: #### 1 69, 70022 #### [facility] [address] [place] [address], [facility] Urea nitrogen [Mass/Vol] 12 mg/dL Normal 7-25 [facility] Comment on above: Order Comment: No: D o not add to previous draw Performed By: #### 1 0, 89144 #### [facility] [address] [place] [address], [facility] D DIMER TESTon 03-29-2020 D-DIMER TEST <0.27 Low 0.27-0.49 The [facility] Comment on above: Order Comment: No: D o not add to previous draw Result Comment: D-Di elisa values of less than 0.50 ug/ml (FEU) are considered to be a negative predictor of thrombosis. However, the D-Dimer result should be used in conjunction with pretest probability and should not be used alone to diagnose a thrombotic event. Performed By: #### 1 69, 12786 #### [facility] [address] [facility] [place] [place] [address], [facility] HEMOGLOBIN A1Con 03-29-2020 Glucose [Moles/Vol] 111 mmol/L Normal [facility] Comment on above: Order Comment: No: D o not add to previous draw Performed By: #### 3 1791 #### [facility] [address] [place] [address], [facility] HbA1c (Bld) [Mass fraction] 5.5 % Normal 4.0-6.0 [facility] Comment on above: Order Comment: No: D o not add to previous draw Performed By: #### 3 1791 #### [facility] [address] [place] [address], [facility] MAGNESIUM BLOODon 03-29-2020 Magnesium [Mass/Vol] 2.0 mg/dL Normal 1.9-2.7 [facility] Comment on above: Order Comment: No: D o not add to previous draw Performed By: #### 1 69, 23874 #### [facility] [address] [place], [address] PROTHROMBIN TIMEon 0 INR Coag (PPP) [Relative time] 1.84 {INR} High 0.91-1.16 [facility] Comment on above: Order Comment: [...] 1995;108:231S-246S. Performed By: #### 8 5499 #### [facility] [address] [place] [address], [facility] PT Coag (PPP) [Time] 21.3 s High 12.3-14.8 [facility] Comment on above: Order Comment: No: D o not add to previous draw Result Comment: ALL RESULTS MUST BE INTERPRETED WITH RESPECT TO BLOOD DRAWING ARTIFACT OR DILUTION ERROR OF ANTICOAGULANT AT THE TIME OF SAMPLING. Performed By: #### 8 5499 #### [facility] [address] [place] [address], [facility] TROPONIN-Ion 03-29-2020 Troponin I.cardiac [Mass/Vol] 0.00 ng/mL Normal 0.00-0.04 [facility] Comment on above: Order Comment: No: D o not add to previous draw Result Comment: REFE RENCE RANGES: 0.00 - 0.14 ng/ml NEGATIVE 0.15 - 0.25 ng/ml INDETERMINATE > 0.25 ng/ml INDICATIVE OF AN M.I. Performed By: #### 1 0070, 82283 #### [facility] [address] TSH3on 03-29-2020 TSH 3RD GENERATION 3.72 uIU/mL Normal 0.34-5.60 The [facility] Comment on above: Order Comment: No: D o not add to previous draw Performed By: #### 1 0070, 32406 #### [facility] [address] Vital Signs Date Time Vital Sign Value Performing Clinician Facility 11-02-2024 09:55-0400 Body mass index (BMI) [Ratio] 50.98 kg/m2 Kaila Angelita T[employer]AS[employer] MANAGEMENT SALES CONSULTANT Work Phone: [facility] 11-02-2024 09:55-0400 Body temperature 98.8 [degF] Kaila Torstenz TREASUR[employer] MANAGEMENT SALES CONSULTANT Work Phone: [facility] 11-02-2024 09:55-0400 Body weight 149.87 kg Kaila Mariolahholz TREASURY MANAGEMENT SALES CONSULTANT Work Phone: [facility] 11-02-2024 09:55-0400 Diastolic blood pressure 92 mm[Hg] Kaila Torstenz TREASURY MANAGEMENT SALES CONSULTANT Work Phone: [facility] 11-02-2024 09:55-0400 Heart rate 68 /min Kaila Aichholz TREAS[employer] MANAGEMENT SALES CONSULTANT Work Phone: [facility] 11-02-2024 09:55-0400 Respiratory rate 20 /min Kaila Aichholz TREASURY MANAGEMENT SALES CONSULTANT Work Phone: [facility] 11-02-2024 09:55-0400 SaO2% (BldA) [Mass fraction] 98 % Kaila Torstenz TREASURY MANAGEMENT SALES CONSULTANT Work Phone: [facility] 11-02-2024 09:55-0400 Systolic blood pressure 124 mm[Hg] Kaila Torstenz TREASURY MANAGEMENT SALES CONSULTANT Work Phone: [facility] 06-18-2023 09:43-0500 Diastolic blood pressure 101 mm[Hg] Harleen Ly DO Work Phone: [facility] 06-18-2023 09:43-0500 Respiratory rate 16 /min Harleen Ly DO Work Phone: [facility] 06-18-2023 09:43-0500 SaO2% (BldA) [Mass fraction] 97 % Harleen Ly DO Work Phone: [facility] 06-18-2023 09:43-0500 Systolic blood pressure 161 mm[Hg] Harleen Ly DO Work Phone: [facility] 06-18-2023 09:23-0500 Body temperature 97 [degF] Harleen Ly DO Work Phone: [facility] 06-18-2023 07:49-0500 Body height 172.7 cm Harleen Ly DO Work Phone: [facility] 06-18-2023 07:49-0500 Body weight 144.7 kg Harleen Ly DO Work Phone: [facility] 04-29-2023 11:43-0500 Body weight 144.7 kg Harleen Ly DO Work Phone: [facility] 04-29-2023 11:43-0500 Diastolic blood pressure 80 mm[Hg] Harleen Ly DO Work Phone: [facility] 04-29-2023 11:43-0500 Heart rate 78 /min Harleen Ly DO Work Phone: [facility] 04-29-2023 11:43-0500 Systolic blood pressure 140 mm[Hg] Harleen Ly DO Work Phone: [facility] 04-03-2023 07:55-0500 Body height 172.72 cm Kaila Goldstein Work Phone: [facility] 04-03-2023 07:55-0500 Body weight 143.33 kg Kaila Aichholz Work Phone: [facility] Encounters Encounter Date Encounter Type Care Provider Facility Start: 01-07-2025 End: 01-09-2025 Refill Kaila Aichholz [employer] MANAGEMENT SALES CONSULTANT Work Phone: [facility] Comment on above: Gout, unspecified; Type 2 diabetes mellitus without complication, without long-term current use of insulin (HCC); Hypothyroidism, unspecified type Start: 12-19-2024 End: 12-19-2024 Refill Kaila Aichholz [employer]AS[employer] MANAGEMENT SALES CONSULTANT Work Phone: [facility] Comment on above: Dog bite, initial en counter (Primary Dx) Start: 12-12-2024 End: 12-12-2024 [facility] Start: 11-24-2024 End: 11-24-2024 Clinisync Result Encounter Kaila Aichholz T[employer]AS[employer] MANAGEMENT SALES CONSULTANT Work Phone: [facility] External Department Unsolicited Start: 11-24-2024 End: 11-24-2024 Clinisync Result Encounter Kaila Aichholz TREASUR[employer] MANAGEMENT SALES CONSULTANT Work Phone: [facility] External Department Unsolicited Start: 11-09-2024 End: 11-09-2024 Refill Kaila Aichholz TREAS[employer] MANAGEMENT SALES CONSULTANT Work Phone: [facility] Comment on above: Primary hypertension Multiple lung nodule s (Primary Dx) Start: 11-02-2024 End: 11-02-2024 Bamboo flowsheet Kaila Aichholz TREAS[employer] MANAGEMENT SALES CONSULTANT Work Phone: [facility] Start: 11-02-2024 End: 11-02-2024 Bamboo flowsheet Kaila Aichholz TREAS[employer] MANAGEMENT SALES CONSULTANT Work Phone: [facility] Start: 11-02-2024 End: 11-02-2024 Office outpatient visit 25 minutes Kaila Aichholz T[employer]AS[employer] MANAGEMENT SALES CONSULTANT Work Phone: [facility] Comment on above: Type 2 diabetes janet itus without complication, without long- term current use of insulin (HCC) (Primary Dx); Sleep apnea, obstructive; Multiple lung nodules; Atrial fibrillation, unspecified type ([facility]); Primary hypertension ; Asymptomatic microscopic hematuria; Hypothyroidism, unspecified type ; Gout, unspecified cause, unspecified chronicity, unspecified site; Mixed hyperlipidemia ; Morbid (severe) obesity due to excess calories ([facility]); Body mass index (BMI) 45.0-49.9, adult ([facility]); Encounter for screening mammogram for malignant neoplasm of breast; History of tobacco abuse Start: 11-02-2024 End: 11-02-2024 ambulatory KAILA AICHHOLZ Not Available Start: 10-17-2024 End: 10-17-2024 Clinisync Result Encounter Kaila Aichholz T[employer]AS[employer] MANAGEMENT SALES CONSULTANT Work Phone: [facility] External Department Unsolicited Start: 10-17-2024 End: 10-17-2024 Clinisync Result Encounter Kaila Aichholz TREASURY MANAGEMENT SALES CONSULTANT Work Phone: [facility] External Department Unsolicited Start: 07-11-2024 End: 07-11-2024 Refill Kaila Aichholz TREAS[employer] MANAGEMENT SALES CONSULTANT Work Phone: [facility] Comment on above: Hypothyroidism, unsp ecified type ([facility]); Gout, unspecified; Type 2 diabetes mellitus without complication, without long-term current use of insulin ([facility]) Start: 05-24-2024 End: 05-24-2024 ambulatory [facility] Start: 05-11-2024 End: 05-12-2024 Refill Kaila Aichholz TREAS[employer] MANAGEMENT SALES CONSULTANT Work Phone: [facility] Comment on above: Type 2 diabetes janet itus without complication, without long- term current use of insulin ([facility]) Start: 04-08-2024 End: 04-08-2024 Refill Kaila Aichholz TREASURY MANAGEMENT SALES CONSULTANT Work Phone: [facility] [facility] Comment on above: Acute bacterial conj unctivitis, unspecified laterality (Primary Dx) Start: 03-02-2024 End: 03-02-2024 Refill Quinn Antunez MD Work Phone: [facility] Comment on above: Mixed hyperlipidemia (CMS/HCC) Start: 02-12-2024 End: 02-12-2024 Refill Quinn Antunez MD Work Phone: [facility] Comment on above: Primary hypertension (CMS/HCC) Start: 01-17-2024 End: 01-19-2024 Refill Kaila Aichholz TREASURY MANAGEMENT SALES CONSULTANT Work Phone: [facility] Comment on above: Mixed hyperlipidemia (CMS/HCC); Hypothyroidism, unspecified type (CMS/HCC); Primary hypertension ([facility]); Type 2 diabetes mellitus without complication, without long-term current use of insulin ([facility]); Gout, unspecified Start: 01-06-2024 End: 01-06-2024 Refill Kaila Aichholz TREASURY MANAGEMENT SALES CONSULTANT Work Phone: [facility] Comment on above: Acute cystitis witho ut hematuria (Primary Dx) Start: 12-22-2023 Patient encounter procedure Kaila Aichholz TREASURY MANAGEMENT SALES CONSULTANT Work Phone: [facility] Start: 12-22-2023 End: 12-22-2023 ambulatory KAILA AICHHOLZ Not Available Start: 06-24-2023 Orders Only Kaila Aichholz TREASURY MANAGEMENT SALES CONSULTANT Work Phone: [facility] Comment on above: Multiple lung nodule s (Primary Dx) Start: 06-23-2023 Telephone encounter Harleen Macdonald DO Work Phone: Gastroenterology Comment on above: Results Start: 06-18-2023 ambulatory YANN Haywoodi ty:[facility] Start: 06-18-2023 End: 06-18-2023 Subsequent hospital visit by physician Harleen Macdonald DO Work Phone: Procedures Comment on above: History of colon marcelo yps [Z86.010] Start: 04-29-2023 End: 04-29-2023 ambulatory HARLEEN LY Facility:[facility] Start: 04-29-2023 End: 04-29-2023 Patient encounter procedure Harleen Macdonald DO Work Phone: Gastroenterology Comment on above: History of colon marcelo yps (Primary Dx) Start: 04-21-2023 Telephone encounter Carmen Jacob MD Work Phone: Gastroenterology Comment on above: Appointment Start: 04-03-2023 End: 04-03-2023 ambulatory Kaila Kristi Goldstein Facility:[facility] Start: 04-03-2023 End: 04-03-2023 ambulatory Kaila Kristi Sarmientoz Work Phone: [facility] Work Phone: Start: 04-03-2023 End: 04-03-2023 Patient encounter procedure Kaila Goldstein Work Phone: [facility] Work Phone: Start: 03-13-2023 ambulatory Facility:[facility] Start: 09-15-2022 End: 09-16-2022 ambulatory CALL CENTER TRAINER KAILA AICJacquieHOLZ Facility: Start: 05-01-2022 End: 05-01-2022 ambulatory CALL CENTER TRAINER KAILA AICHHOLZ Facility: Start: 03-13-2022 End: 03-14-2022 ambulatory CALL CENTER TRAINER KAILA AICHHOLZ Facility: Start: 11-02-2020 End: 11-03-2020 ambulatory KAILA JOSHUAHOLZ Facility:[facility] Start: 07-26-2020 End: 07-27-2020 ambulatory KAILA TORSTENZ Facility:[facility] Start: 04-16-2020 End: 04-23-2020 Evaluation and management of inpatient LULUVIKTORIYA DEE Facility:[facility] Start: 03-29-2020 End: 04-01-2020 Evaluation and management of inpatient YINA MAKI Facility:[facility] Procedures Date Procedure Procedure Detail Performing Clinician Start: 11-24-2024 MM TOMOSYNTHESIS SCR EENING BI Kaila Goldstein TREAS[employer] MANAGEMENT SALES CONSULTANT Work Phone: Start: 11-24-2024 CT LUNG SCREENING LOW DOSE Kaila Goldstein TREAS[employer]Y MANAGEMENT SALES CONSULTANT Work Phone: Start: 11-24-2024 Mammography Kaila Marlee jin TREAS[employer]Y MANAGEMENT SALES CONSULTANT Work Phone: Start: 10-17-2024 ALL CBC WITH AUTO DIFF Kaila Gomesliset TREASURY MANAGEMENT SALES CONSULTANT Work Phone: Start: 10-17-2024 MLR HEMOGLOBIN A1C Kaila Gomesliset TREASURY MANAGEMENT SALES CONSULTANT Work Phone: Start: 06-18-2023 Colonoscopy flx dx w /collj spec when pfrmd Harleen Ly DO Work Phone: Start: 06-18-2023 Gluc bld gluc mntr d ev cleared fda spec home use Yann Kuhn MD Work Phone: Start: 06-18-2023 Colonoscopy Harleen Ly DO Work Phone: Start: 04-03-2023 Positron emission tomography with computed tomography Kaila Gomesliset Work Phone: Start: 03-18-2023 Mammography Kaila Whalen annabel TREASURY MANAGEMENT SALES CONSULTANT Work Phone: Start: 11-02-2020 Colonoscopy w/biopsy single/multiple [...] Screening for malign ant neoplasm of colon [facility] Start: 06-18-2026 Screening for malign ant neoplasm of colon [facility] Start: 11-24-2025 Screening for malign ant neoplasm of breast Mammogram [facility] Start: 10-17-2025 Urine screening for protein Diabetes: Urine Protein Screening [facility] Start: 04-18-2025 Hemoglobin A1c measurement Diabetes: Hemoglobin A1C [facility] Start: 02-02-2025 End: 02-02-2025 Patient encounter procedure 02/02/2025 8:40 AM EDT Office Visit [facility] [address] [place] [id number] Kaila Goldstein NP [address] [place] [id number] [facility] Start: 12-21-2024 Medicare Annual Well ness (AWV) Medicare Annual Wellness (AWV) [facility] Start: 12-21-2024 Pneumococcal Vaccine : 65+ Years (1 of 2 - PCV) Pneumococcal Vaccine: 65+ Years (1 of 2 - PCV) [facility] Comment on above: Postponed from 09/29 (Patient Refused) Postponed from 09/29 (Patient Refused) Start: 11-09-2024 End: 11-09-2025 CT Chest WO contrast CT chest wo IV contrast Imaging Routine Multiple lung nodules Expected: 11/09/2024, Expires: 11/09/2025 [facility] Work Phone: Comment on above: Expected: 11/09/2024 , Expires: 11/09/2025 Start: 11-02-2024 End: 11-02-2025 CT Chest for screening WO contrast CT lung screening low dose Imaging Routine History of tobacco abuse Expected: 11/02/2024, Expires: 11/02/2025 [facility] Comment on above: Expected: 11/02/2024 , Expires: 11/02/2025 Start: 11-02-2024 End: 01-02-2026 MG Breast - bilateral Screening Bilateral screening mammogram Imaging Routine Encounter for screening mammogram for malignant neoplasm of breast Expected: 11/02/2024 (Approximate), Expires: 01/02/2026 [facility] Work Phone: Comment on above: Expected: 11/02/2024 (Approximate), Expires: 01/02/2026 Start: 11-02-2024 End: 11-02-2024 Patient encounter procedure 11/02/2024 11:30 AM EDT Office Visit [facility] [address] [place] [phone] Kaila Goldstein NP [address] [place] [address] [facility] Start: 08-18-2024 Urine screening for protein Diabetes: Urine Protein Screening [facility] Start: 08-16-2024 Glaucoma screening Diabetes: R etinopathy Screening [facility] Start: 08-04-2024 End: 08-04-2024 Patient encounter procedure 08/04/2024 1:00 PM EDT Office Visit [facility] [address] [place] [address] Kaila Goldstein NP [address] [place] [phone] [facility] Start: 06-23-2024 End: 06-23-2024 Patient encounter procedure 06/23/2024 9:20 AM EST Office Visit [facility] [address] [place] [address] Kaila Goldstein, ANA [address] [place] [phone] [facility] Start: 06-18-2024 Screening for malign ant neoplasm of colon [facility] Start: 03-18-2024 Screening for malign ant neoplasm of breast Mammogram [facility] Start: 02-18-2024 Hemoglobin A1c measurement Diabetes: Hemoglobin A1C [facility] Start: 12-10-2023 Medicare Annual Well ness (AWV) Medicare Annual Wellness (AWV) [facility] Start: 11-15-2023 Influenza vaccination Influenza Vacc ine (#1) [facility] Comment on above: Postponed from 01/16 (Patient Refused) Start: 09-16-2023 Urine screening for protein Diabetes: Urine Protein Screening [facility] Start: 08-17-2023 Pneumococcal Vaccine : 65+ Years (1 - PCV) Pneumococcal Vaccine: 65+ Years (1 - PCV) [facility] Comment on above: Postponed from 09/29 (Other Medical Reasons) Start: 08-04-2023 End: 08-04-2023 Patient encounter procedure 08/04/2023 8:40 AM EDT Office Visit [facility] [address] [place] [phone] Kaila Goldstein NP [address] [place] [phone] [facility] Start: 06-24-2023 End: 06-24-2024 CT Chest WO contrast CT chest wo IV contrast Imaging Routine Multiple lung nodules Expected: 06/24/2023 (Approximate), Expires: 06/24/2024 [facility] Work Phone: Comment on above: Expected: 06/24/2023 (Approximate), Expires: 06/24/2024 Start: 05-18-2023 Advance Directive Discussion Advance Directive Discussion [facility] Start: 05-18-2023 Depression Assessment Depression Ass essment [facility] Start: 01-16-2023 Covid-19 Vaccine ( season) Covid-19 Vaccine ( season) [facility] Start: 01-16-2023 Influenza vaccination Influenza Vacc ine (#1) [facility] Start: 05-18-2022 Advance Directive Discussion Advance Directive Discussion [facility] Start: 05-18-2022 Depression Assessment Depression Ass essment [facility] Start: 11-02-2021 Screening for malign ant neoplasm of colon [facility] Start: 2021 Bone Density Screening Bone Density Screening [facility] Start: 2021 Pneumococcal Vaccine : 65+ (1 - PCV) Pneumococcal Vaccine: 65+ (1 - PCV) [facility] Start: 2021 Screening for osteoporosis Bone Density Screening [facility] Start: 2016 RSV Vaccine (1 - 1-d ose 60+ series) RSV Vaccine (1 - 1-dose 60+ series) [facility] Start: 2006 Shingrix Vaccine (1 of 2) Shingrix Vaccine (1 of 2) [facility] Start: 2001 Cologuard (FIT-DNA) Cologuard (FIT-D NA) [facility] Start: 2001 Colonoscopy Colonoscopy [facility] Start: 2001 Colorectal Cancer Screening Colorectal Cancer Screening [facility] Start: [address] Colonography [facility] Start: 2001 Diabetes Screening Diabetes Screenin g [facility] Start: 2001 Fecal Occult Blood Fecal Occult Bloo d [facility] Start: 2001 Lipid 1996 panel - S norma or Plasma Lipid Screening [facility] Start: 2001 Lipid panel Lipid Screening [facility] Start: 2001 Screening for malign ant neoplasm of colon [facility] Start: 2001 Sigmoidoscopy Sigmoidoscopy [facility] Start: 1996 Mammography Mammogram Screening [facility] Start: 1996 Screening for malign ant neoplasm of breast Mammogram Screening [facility] Start: 09-30-1975 Pneumococcal Vaccine : 65+ Years (1 of 2 - PCV) Pneumococcal Vaccine: 65+ Years (1 of 2 - PCV) [facility] Start: 09-30-1975 Urine microalbumin profile DTaP,Tdap,Td Vaccine (1 - Tdap) [facility] Start: 1974 Annual PCP Team [employer] michelle Disease Visit Annual PCP Team Chronic Disease Visit [facility] Start: 1974 BP Controlled (<130/80) BP Controlle d (<130/80) [facility] Start: 1974 Hepatitis C Screening Hepatitis C [facility] Start: 1974 Hepatitis C screening Hepatitis C [facility] Start: 1962 Pneumococcal Vaccine : 65+ (1 of 2 - PCV) Pneumococcal Vaccine: 65+ (1 of 2 - PCV) [facility] Start: 04-01-1957 Covid-19 Vaccine (#1) Covid-19 Vacci ne (#1) [facility] Start: 1956 Hemoglobin A1c measurement Diabetes: Hemoglobin A1C [facility] Start: 1956 Screening for malign ant neoplasm of colon [facility] End: 04-29-2024 Screening colonoscopy COLONOSCOPY SCREENING Endoscopy Routine History of colon polyps 1 Occurrences starting 04/29/2023 until 04/29/2024 [facility] Work Phone: Comment on above: 1 Occurrences starti ng 04/29/2023 until 04/29/2024 SURGICAL PATHOLOGY [facility] Work Phone: Comment on above: Release Upon Neriin g for 1 Occurrences starting 06/18/2023, 1 completed [facility] Immunizations Immunization Date Immunization Notes Care Provider Yonas beltran 11-10-2022 zoster vaccine recombinant Kaila Angelita TREAS[employer] MANAGEMENT SALES CONSULTANT Work Phone: [facility] 05-21-2022 zoster vaccine recombinant Kaila Angelita TREASURY MANAGEMENT SALES CONSULTANT Work Phone: [facility] Payers Date Payer Category Payer Medicare [id number] 2024 Medicare [id number] 2023 Self-pay 2022 Medicare (Managed Care) [id number]. [id number] 2022 Unknown [employer] [id number] 2022-Present [address] [place] [address] [id number] 2021 Medicare [id number] 2020 Unknown [id number] 1959 Medicare [id number] 1956 Unknown [id number] 47 1956 Unknown [id number] 47 1956 Unknown [id number] 47 1956 Unknown [id number] 47 1956 Unknown [id number] 93 1956 Unknown [id number] 93 1956 Unknown [id number] 93 1956 Unknown [id number] 259 1956 Unknown [id number] 259 Unknown [id number] Unknown [id number] 31 Social History Date Type Detail Facility Tobacco smoking stat [facility] Unknown if ever smoked [facility] Work Phone: Start: 1955 Sex Assigned At Female F [facility] Tobacco smoking stat [facility] Tobacco smoking consumption unknown [facility] Start: 1955 Sex Assigned At Not on file [facility] Start: 04-29-2023 End: 12-22-2023 Gender identity Not on file [facility] Start: 04-29-2023 End: 11-02-2024 Tobacco smoking status NHIS Ex-smoker [facility] Start: 05-18-1975 End: 05-18-2007 History of tobacco use Current smoker [facility] Start: 05-18-1975 End: 05-18-2007 History of tobacco use Cigarette Smoker [facility] Start: 04-29-2023 End: 12-22-2023 Cigarettes smoked current (pack per day) - Reported 1.5 [facility] Start: 04-29-2023 Tobacco use and exposure Smokeless tobacco non-user [facility] Start: 07-08-2023 National Score (1-10 0), lower number is lower risk 91 [facility] Start: 05-04-2023 End: 11-02-2024 Alcohol intake Ex-drinker (finding) [facility] Start: 05-03-2023 Tobacco Comment Last smoked 10-15 ye ars [facility] Start: 05-03-2023 Alcohol Comment caffeine:soda [facility] Start: 07-08-2023 Gender identity Identifies as female gender (finding) [facility] Start: 11-02-2024 Tobacco Comment Last smoked 10 -15 years pt quit 2007 [facility] Medical Equipment Procedure Code Equipment Code Equipment Origin al Text Equipment Identifier Dates Use as instructed [id number] Start: 05-22-2023 End: 05-21-2024 1 each 3 (three) times a day as needed (3 times daily prn) [id number] Start: 05-22-2023 1 each by Other route Daily [id number] Start: 10-19-2023 End: 01-27-2024 Use once a day [id number] Start: 05-12-2024 Clinical Notes 04-01-2020 to 12-19-2024 Telephone Encounter - Kaila Goldstein NP - 12/19/2024 1:31 PM EDTTelephone Encounter - Kaila Goldstein NP - 12/19/2024 1:31 PM EDTPatient DELORES Jalloh - 11/02/2024 11:30 AM EDT Note Date & Type Note Facility 12-19-2024 Telephone encounter Note Dog bite (daughters dog) bite yesterday, left hand over the 4th and 5th fingers and MCP area, mild bruising no erythema Will cover with augmentin atb and suggest she update adacel, if worsening in sxs notify provider [place] [facility] 12-19-2024 Miscellaneous Notes Dog bite (daughters dog) bite yesterday, left hand over the 4th and 5th fingers and MCP area, mild bruising no erythema Will cover with augmentin atb and suggest she update adacel, if worsening in sxs notify provider [place] documented in this encounter [facility] 12-12-2024 Note [place] Cardiology - [facility] Subjective Hortensia Bates is a 69 y.o. year old female patient being seen for a 6 month follow up. Patient states she's not feeling to bad. Patient denies chest pain, dizziness. Patient complains of leg swelling, fatigue. Patient states her PCP ordered a Chest CT and the accounts receivable accountant pointed out a an enlargement in her heart and her PCP recommended cardiology do an ECHO. Patient Active Problem List Diagnosis Palpitations Persistent [...] Acute bacterial conjunctivitis Acute cystitis without hematuria Family History Problem Relation Name Age of Onset No Known Problems Mother No Known Problems Father Social History Tobacco Use Smoking status: Former Current packs/day: 0.00 Types: Cigarettes Quit date: 05/18/2007 Years since quittin.5 Smokeless tobacco: Never Substance Use Topics Alcohol use: Not Currently Drug use: Never JORDAN Hortensia is seen in follow-up. She is a 69-year-old woman with a history of paroxysmal atrial fibrillation status post A-fib ablation in 2020, hypertension and hyperlipidemia. Today she reports that she has been doing reasonably well. She does complain of shortness of breath on exertion NYHA class II symptoms. In addition she has bilateral lower extremity edema. She says that this is probably mostly in hot weather. The edema is less in the morning. Otherwise she does not feel palpitations. She has no chest pain. No dizziness or lightheadedness. Her blood pressure is mildly elevated today. Review of Systems Constitutional: Positive for malaise/fatigue. Cardiovascular: Positive for dyspnea on exertion and leg swelling. Objective Visit Vitals BP 137/83 (BP Location: Right arm, Patient Position: Sitting) Pulse 79 Ht 1.727 m (5' 8 ) Wt (!) 150 kg (330 lb) SpO2 94% BMI 50.18 kg/m??? Smoking Status Former BSA 2.68 m??? Physical Exam Constitutional: Appearance: She is well-developed. She is obese. She is not ill-appearing. HENT: Head: Normocephalic and atraumatic. Nose: Nose normal. Eyes: General: No scleral icterus. Pupils: Pupils are equal, round, and reactive to light. Neck: Thyroid: No thyromegaly. Vascular: No JVD. Cardiovascular: Rate and Rhythm: Normal rate and regular rhythm. Pulses: Radial pulses are 2+ on the right side and 2+ on the left side. Heart sounds: Normal heart sounds. No murmur heard. No friction rub. No gallop. Pulmonary: Effort: Pulmonary effort is normal. No respiratory distress. Breath sounds: Normal breath sounds. No wheezing or rales. Chest: Chest wall: No tenderness. Abdominal: General: Bowel sounds are normal. There is no distension. Palpations: Abdomen is soft. Tenderness: There is no abdominal tenderness. Musculoskeletal: General: No swelling. Cervical back: Neck supple. Right lower le+ Pitting Edema present. Left lower le+ Pitting Edema present. Skin: General: Skin is warm and dry. Neurological: General: No focal deficit present. Mental Status: She is alert and oriented to person, place, and time. Psychiatric: Mood and Affect: Mood normal. Behavior: Behavior is cooperative. Judgment: Judgment normal. Allergies Allergies Allergen Reactions Fexofenadine Hcl Hives Spironolactone Hives and Unknown Thiazides Medications Current Outpatient Medications: allopurinol (Zyloprim) 100 mg tablet, allopurinol 100 mg tablet TAKE 1 TABLET BY MOUTH EVERY DAY, Disp: , Rfl: apixaban (Eliquis) 5 mg tablet, Take 1 tablet (5 mg) by mouth two times daily., Disp: 60 tablet, Rfl: 11 calcium 500 mg calcium (1,250 mg) tablet, Take 1 tablet by mouth in the morning., Disp: , Rfl: carvedilol (Coreg) 6.25 mg tablet, TAKE 1 TABLET (6.25 MG) BY MOUTH WITH BREAKFAST AND WITH EVENING MEAL. STOP METOPROLOL, Disp: 180 tablet, Rfl: 3 [...] mouth in the morning., Disp: , Rfl: Ozempic 0.25 mg or 0.5 mg (2 mg/3 mL) pen injector, Inject 0.25 mg under the skin once a week., Disp: , Rfl: rosuvastatin (Crestor) 5 mg tablet, TAKE 1 TABLET (5 MG) BY MOUTH EVERY OTHER DAY FOR 14 DAYS, THEN 1 TABLET (5 MG) AT BEDTIM (more content not included)... [facility] 11-02-2024 Instructions Kaila Goldstein NP - 11/02/2024 11:30 AM EDT Mammogram Low dose CT scan Ozempic documented in this encounter [facility] 11-02-2024 History of Presen t illness Narrative Pain in hands, shoulders, hips, knees, ect. Happens often in the evening. Pt states that sometimes the pain becomes bad where her hands become stiff and unable to close her hands until morning. Pt would like to discuss weight loss and motivation. Pt had retinopathy last week- [facility]. I called over to [facility], I spoke with the train caller who verified that pt did have an exam last week however she will have to talk to the DR to see if a retinopathy screening was performed if so they will fax over Images from the original note were not included. Hortensia Bates is a 69 y.o. female presents with chief complaint of Diabetes HPI: Diabetes She presents for her follow-up diabetic visit. She has type 2 diabetes mellitus. Her disease course has been stable. There are no hypoglycemic associated symptoms. Pertinent negatives for hypoglycemia include no dizziness, headaches, nervousness/anxiousness, seizures or tremors. Pertinent negatives for diabetes include no chest pain, no foot paresthesias, no polydipsia, no polyphagia, no polyuria and no visual change. There are no hypoglycemic complications. Symptoms are stable. Pertinent negatives for diabetic complications include no nephropathy, peripheral neuropathy, PVD or retinopathy. Risk factors for coronary artery disease include diabetes mellitus, dyslipidemia, hypertension, obesity and sedentary lifestyle. Current diabetic treatment includes oral agent (monotherapy). She is compliant with treatment all of the time. Her weight is increasing steadily. She rarely participates in exercise. Her overall blood glucose range is 110-130 mg/dl. An OFELIA inhibitor/angiotensin II receptor rosa is being taken. She does not see a manager quality compliance.Eye exam is current. Hypertension This is a chronic problem. The current episode started more than 1 year ago. The problem is unchanged. The problem is controlled. Associated symptoms include peripheral edema. Pertinent negatives include no chest pain, headaches, orthopnea, palpitations, PND or shortness of breath. There are no associated agents to hypertension. Risk factors for coronary artery disease include diabetes mellitus, dyslipidemia, obesity, post-menopausal state and sedentary lifestyle. Past treatments include beta blockers, angiotensin blockers and diuretics. The current treatment provides significant improvement. There are no compliance problems. There is no history of heart failure, PVD or retinopathy. SUBJECTIVE: MEDICATIONS: Current Outpatient Medications Medication Instructions Alcohol Swabs pads Does not apply allopurinol (ZYLOPRIM) 100 mg, Oral, Daily apixaban (ELIQUIS) 5 mg, Oral, 2 times daily atorvastatin (LIPITOR) 10 mg, Oral, Every evening Blood Glucose Monitoring Suppl (Blood Glucose Monitor System) w/Device kit 1 kit, Does not apply, 3 times daily PRN calcium carbonate (CALCIUM 600) 1,500 mg, Oral, 2 times daily with meals carvedilol (COREG) 6.25 mg, Oral, 2 times daily with meals glucose blood (OneTouch Ultra) test strip Use once a day levothyroxine (SYNTHROID, LEVOXYL) 100 mcg, Oral, Daily before breakfast losartan (COZAAR) 50 mg, Oral, Daily metFORMIN (GLUCOPHAGE) 500 mg, Oral, Daily with breakfast Multiple Vitamins-Minerals (CENTRUM SILVER 50+MEN PO) Oral Ozempic (0.25 or 0.5 MG/DOSE) 0.25 mg, Subcutaneous, Every 7 days, Take 0.25mg weekly for 4 weeks, then increase to 0.5mg weekly rosuvastatin (CRESTOR) 5 mg, Daily spironolactone (ALDACTONE) 25 mg, Oral, Every morning ALLERGIES: Allergies Allergen Reactions Fexofenadine Hcl Hives Hydrochlorothiazide Hives Spironolactone Thiazide-Type Diuretics Hives REVIEW OF SYMPTOMS: Review of Systems Constitutional: Negative for appetite change, chills, fever and unexpected weight change. HENT: Negative for congestion, ear pain and sore throat. Eyes: Negative for pain, discharge, redness and visual disturbance. Respiratory: Negative for cough, shortness of breath and wheezing. Cardiovascular: Positive for leg swelling. Negative for chest pain, palpitations, orthopnea and PND. Gastrointestinal: Negative for abdominal pain, blood in stool, constipation, diarrhea, nausea and vomiting. Genitourinary: Negative for difficulty urinating, dysuria and frequency. Musculoskeletal: Positive for arthralgias. Negative for back pain, joint swelling and myalgias. Skin: Negative for rash and wound. Neurological: Negative for dizziness, tremors, seizures, syncope and headaches. Psychiatric/Behavioral: Negative for behavioral problems, self-injury and suicidal ideas. The patient is not nervous/anxious. Hematological: Does not bruise/bleed easily. Endocrine: Negative for polydipsia, polyphagia and polyuria. Allergic/Immunologic: Negative for environmental allergies and food allergies. PAST MEDICAL HISTORY Past Medical History: Diagnosis Date Abnormal CT of the chest Abnormal mammogram Arrhythmia Arthralgia Arthritis Atrial fibrillation (HCC) Diabetes, gestational (HHS-HCC) Gout Heart palpitations History of tobacco abuse Hot flashes Hyperparathyroidism (HCC) Hyperparathyroid Disease Hypertension Hypoglycemia Hypothyroidism Joint pain Multiple lung nodules Pain, foot, right, chronic Panic attacks Skin tags, multiple acquired Sleep apnea, obstructive Type 2 diabetes mellitus (HCC) Past Surgical History: Procedure Laterality Date APPENDECTOMY CARDIAC SURGERY [address] ANGIOGRAM HEART CORONARY 05/16/2020 CT ANGIOGRAM TAVR PARATHYROIDECTOMY THYROID BIOPSY Chronic thyroid inflammation THYROIDECTOMY TUBAL LIGATION family history includes Breast cancer in her sister; Cancer in her mother and sister; Diabetes in her father; Hyperlipidemia in her father and mother; Hypertension in her father; Lung cancer in her father; Lung disease in her father; Mental illness in her mother; stomach trouble in her father. OBJECTIVE: Visit Vitals BP (!) 124/92 (BP Location: Left arm, Patient Position: Sitting, BP Cuff Size: Large adult) Pulse 68 Temp 98.8 F (Temporal) Resp 20 Wt 330 lb 6.4 oz SpO2 98% BMI 50.98 kg/m Smoking Status Former BSA 2.67 m Physical Exam Vitals and nursing note reviewed. Constitutional: General: She is not in acute distress. Appearance: Normal appearance. HENT: Head: Normocephalic and atraumatic. Right Ear: External ear normal. Left Ear: External ear normal. Nose: Nose normal. Mouth/Throat: Mouth: Mucous membranes are moist. Eyes: Extraocular Movements: Extraocular movements intact. Conjunctiva/sclera: Conjunctivae normal. Neck: Vascular: No carotid bruit. Cardiovascular: Rate and Rhythm: Normal rate and regular rhythm. Pulses: Normal pulses. Heart sounds: Normal heart sounds. No murmur heard. Pulmonary: Effort: Pulmonary effort is normal. Breath sounds: Normal breath sounds. No wheezing or rhonchi. Abdominal: General: Bowel sounds are normal. There is no distension. Palpations: Abdomen is soft. There is no mass. Tenderness: There is no abdominal tenderness. Musculoskeletal: General: Normal range of motion. Cervical back: Normal range of motion and neck supple. Right lower leg: Edema present. Left lower leg: Edema present. Comments: 1+ pedal bilat Skin: General: Skin is warm and dry. Capillary Refill: Capillary refill takes 2 to 3 seconds. Findings: No rash. Neurological: General: No focal deficit present. Mental Status: She is alert and oriented to person, place, and time. Psychiatric: Mood and Affect: Mood normal. Behavior: Behavior normal. Thought Content: Thought content normal. Judgment: Judgment normal. ASSESSMENT AND PLAN: Follow up in about 3 months (around 02/02/2025) for Recheck. Problem List Items Addressed This Visit Atrial fibrillation (HCC) NSR, continue current meds Follows with [facility] every 6 months Relevant Medications Semaglutide,0.25 or 0.5MG/DOS, (Ozempic, 0.25 or 0.5 MG/DOSE,) 2 MG/3ML solution pen-injector Gout Current med: allopurinol Check labs yearly, and prn dose change or changes in sxs History of tobacco abuse Patient meets requirements for low dose CT scan for lung cancer screening: age 55-80, patient is a current smoker or has quit in the last 15 years (2016). Smoking history is > or equal to 20 pack-year. If needed the patient is able or willing to receive treatment. The patient is not currently exhibiting any s/s of lung cancer. We have discussed the benefits as well as harms of screening, follow up testing if needed, false positive rates. We have also discussed that this type of CT scan has less radiation exposure than a traditional lung CT scan. We have also discussed that it is important to follow with annual screening for this. The patient has also been counseled on the importance of smoking cessation. Relevant Orders CT lung screening low dose Hypertension Please check blood pressure daily and record DASH diet Limit caffeine Take medication as directed Contact office if chest pain, pressure, dizziness, shortness of breath, swelling legs Recommend slow position changes Current meds: carvedilol, losartan Relevant Medications Semaglutide,0.25 or 0.5MG/DOS, (Ozempic, 0.25 or 0.5 MG/DOSE,) 2 MG/3ML solution pen-injector Hypothyroidism Current meds: levothyroxine Check labs yearly, and prn dose changes or changes in sxs Sleep apnea, obstructive You have a diagnosis of obstructive sleep apnea. It is recommended that you wear your PAP device any time while in bed sleeping. Not using the PAP device can increase your risk of elevated/uncontrolled high blood pressure, atrial fibrillation, heart attack, stroke, or sudden . Compliance with PAP: yes How many hours of use per night: 8 Do you feel more refreshed in the morning: yes Company that supplies your machine and tubing/filters etc: [facility] Type 2 diabetes mellitus (HCC) - Primary Check blood sugars daily, notify if <70 or >200. Take medications (pills or insulin) as directed. Monitor for s/s of hypoglycemia (sweaty, dizziness, nausea, vomiting, or shakiness). Watch for increase in thirst, urination, or appetite. Inspect feet frequently monitoring for open wounds , and also recommend yearly eye exam. Pt should attempt to remain as physically active as chronic conditions allow, as well as trying to follow a diet low in carbohydrates, and simple sugars. Current meds: metformin, statin, arb A1c: 6.3% 10/17/24 Will add ozempic Relevant Medications Semaglutide,0.25 or 0.5MG/DOS, (Ozempic, 0.25 or 0.5 MG/DOSE,) 2 MG/3ML solution pen-injector Multiple lung nodules Check yearly CT chest Asymptomatic microscopic hematuria Check urine sample yearly and prn changes in sxs Morbid (severe) obesity due to excess calories ([facility]) Discussed with patient their BMI (actual, verses recommended). We have also discussed lifestyle modifications: attempts to perform physical activity as chronic conditions allow, also to monitor dietary intake: increasing protein/fruits/veggies and lowering carb intake (unless contraindicated). Limit sodas, juices, and sugary drinks. Relevant Medications Semaglutide,0.25 or 0.5MG/DOS, (Ozempic, 0.25 or 0.5 MG/DOSE,) 2 MG/3ML solution pen-injector Hyperlipidemia On statin therapy Check labs yearly and prn dose changes Relevant Medications Semaglutide,0.25 or 0.5MG/DOS, (Ozempic, 0.25 or 0.5 MG/DOSE,) 2 MG/3ML solution pen-injector Body mass index (BMI) 45.0-49.9, adult ([facility]) Encounter for screening mammogram for malignant neoplasm of breast Relevant Orders Bilateral screening mammogram Associated Problem(s): History of tobacco abuse Patient meets requirements for low dose CT scan for lung cancer screening: age 55-80, patient is a current smoker or has quit in the last 15 years (2016). Smoking history is > or equal to 20 pack-year. If needed the patient is able or willing to receive treatment. The patient is not currently exhibiting any s/s of lung cancer. We have discussed the benefits as well as harms of screening, follow up testing if needed, false positive rates. We have also discussed that this type of CT scan has less radiation exposure than a traditional lung CT scan. We have also discussed that it is important to follow with annual screening for this. The patient has also been counseled on the importance of smoking cessation. Associated Problem(s): Hyperlipidemia On statin therapy Check labs yearly and prn dose changes Associated Problem(s): Gout Current med: allopurinol Check labs yearly, and prn dose change or changes in sxs Associated Problem(s): Type 2 diabetes mellitus (HCC) Check blood sugars daily, notify if <70 or >200. Take medications (pills or insulin) as directed. Monitor for s/s of hypoglycemia (sweaty, dizziness, nausea, vomiting, or shakiness). Watch for increase in thirst, urination, or appetite. Inspect feet frequently monitoring for open wounds , and also recommend yearly eye exam. Pt should attempt to remain as physically active as chronic conditions allow, as well as trying to follow a diet low in carbohydrates, and simple sugars. Current meds: metformin, statin, arb A1c: 6.3% 10/17/24 Will add ozempic Associated Problem(s): Hypothyroidism Current meds: levothyroxine Check labs yearly, and prn dose changes or changes in sxs Associated Problem(s): Morbid (severe) obesity due to excess calories ([facility]) Discussed with patient their BMI (actual, verses recommended). We have also discussed lifestyle modifications: attempts to perform physical activity as chronic conditions allow, also to monitor dietary intake: increasing protein/fruits/veggies and lowering carb intake (unless contraindicated). Limit sodas, juices, and sugary drinks. Associated Problem(s): Asymptomatic microscopic hematuria Check urine sample yearly and prn changes in sxs Associated Problem(s): Hypertension Please check blood pressure daily and record DASH diet Limit caffeine Take medication as directed Contact office if chest pain, pressure, dizziness, shortness of breath, swelling legs Recommend slow position changes Current meds: carvedilol, losartan Associated Problem(s): Atrial fibrillation (HCC) NSR, continue current meds Follows with [facility] every 6 months Associated Problem(s): Multiple lung nodules Check yearly CT chest Associated Problem(s): Sleep apnea, obstructive You have a diagnosis of obstructive sleep apnea. It is recommended that you wear your PAP device any time while in bed sleeping. Not using the PAP device can increase your risk of elevated/uncontrolled high blood pressure, atrial fibrillation, heart attack, stroke, or sudden . Compliance with PAP: yes How many hours of use per night: 8 Do you feel more refreshed in the morning: yes Company that supplies your machine and tubing/filters etc: [employer] documented in this encounter [facility] 05-24-2024 Note Cardiovascular Medic [facility] SUBJECTIVE Chief Complaint Patient presents with Atrial Fibrillation Hypertension Hyperlipidemia Hortensia Bates is a 68 y.o. female here for follow-up. HPI PMHx: a.fib s/p ablation 2020, HTN, HLD Patient here for 6 mo follow up afib, hypertension, and hyperlipidemia. Dr. Vega switched her from metoprolol to carvedilol at [...] 0.99 05/15/23 Rosemarie (more content not included)... [facility] 05-24-2024 Note Patient here for 6 m o follow up afib, hypertension, and hyperlipidemia. Dr. Vega switched her from metoprolol to carvedilol at [...] All other systems reviewed and are negative. [facility] 04-08-2024 Telephone encounter Note Pt contacts provider with c/o pink eye symptoms, requesting atb be sent in. Good hand washing, and if not better after a few days contact office, if acute eye pain or blurry vision go to ER [facility] 04-08-2024 Miscellaneous Notes Pt contacts provider with c/o pink eye symptoms, requesting atb be sent in. Good hand washing, and if not better after a few days contact office, if acute eye pain or blurry vision go to ER documented in this encounter [facility] 06-24-2023 History of Presen t illness Narrative Due for fu CT chest 3 month for lung nodules documented in this encounter [facility] 06-23-2023 Miscellaneous Notes Recall entered Left voice [...] yrs. Thanks cl documented in this encounter [facility] 06-18-2023 History and physical note HISTORY [...] Harleen Macdonald DO documented in this encounter [facility] 04-29-2023 Note HNO ID: [id number] Author: Harleen Macdonald DO Service: ? Author Type: Physician Type: Progress Notes Filed: 04/29/2023 12:49 PM Note Text: Chief Compliant: Consultation requested by Dr. Kaila Goldstein, [employer] for an opinion regarding hx of colon [...] other GI malignancy. No records available in [employer] or [employer] regarding this office visit. ALLERGIES Allergen Reactions [...] from her prior colonoscopy -schedule colonoscopy at [facility]. 2 day bowel p (more content not included)... [facility] 04-29-2023 History of Presen t illness Narrative Chief Compliant: Consultation requested by Dr. Kaila Goldstein, [employer] for an opinion regarding hx of colon [...] other GI malignancy. No records available in [employer] or [employer] regarding this office visit. ALLERGIES Allergen Reactions [...] from her prior colonoscopy -schedule colonoscopy at [facility]. 2 day bowel prep. Procedure/risks were discussed with the patient in great detail including but not limited to the risk of sedation, bleeding, perforation, infection, and missed lesions. Patient agreed to proceed. -fiber rich diet Harleen Macdonald DO Follow Up: No follow-ups on file. documented in this encounter [facility] 04-29-2023 Instructions Harleen Macdonald DO - [...] If you do not have a responsible jeep driver (family member or friend) with you to take you home, your exam cannot be done with sedation and will be cancelled. Please bring a list of all of your current medications, including any Iond-hmy-Iepfhqa medications with you. Medications If you take [...] exam. 2 04/2019 documented in this encounter [facility] 04-21-2023 Miscellaneous Notes Pt's VM is full and there is no active MC Cannot inform pt 05/28 appt w/Kristel was canceled If pt calls back an attempt was made to contact her Frandy Álvarez 04/21/23 documented in this encounter [facility] 04-23-2020 Note MR#: [id number] I [facility] Pt. Name: Hortensia Bates Admitted: 04/15/2020 [...] to the patient being on anticoagulation and [id number] sigmoid diverticulosis. Subsequently, pathology report came back [...] snare measured 3 mm and 5 mm. Qgbufxsi-[id number]-[id number] sigmoid diverticulosis. Again, the patient was admitted [...] Mccollum MD Date Trans: 04/23/2020 02:52 P/mmo [id number] [facility] 04-01-2020 Note MR#: [id number] I [facility] Pt. Name: Hortensia Bates Admitted: 03/29/2020 [...] Gonzalez MD Date Trans: 04/01/2020 12:25 P/mmo [id number] [facility] Evaluation note No assessment inform ation available [facility] Work Phone: Evaluation note Diagnosis History of colon polyps- Primary Personal history of colonic polyps [facility] Chronic atrial fibrillation (HCC)- Primary Atrial fibrillation History of colon polyps Personal history of colonic polyps Primary hypertension Unspecified essential hypertension Class 3 obesity (HCC) [facility] Diagnosis Multiple lung nodules- Primary Other diseases of lung, not elsewhere classified documented in this encounter [facility]* Diagnosis Type 2 diabetes mellitus [...] essential hypertension Asymptomatic microscopic hematuria Obesity, morbid (CMS/HCC) Morbid obesity Encounter for subsequent annual wellness visit (AWV) in Medicare patient- Primary Morbid (severe) obesity due to excess calories (CMS/HCC) Body mass index (BMI) 45.0-49.9, adult (CMS/HCC) Sleep apnea, obstructive Obstructive sleep apnea (adult) (pediatric) Atrial fibrillation, unspecified type (CMS/HCC) Primary hypertension (CMS/HCC) Unspecified essential hypertension Type 2 diabetes mellitus without complication, without long-term current use of insulin ([facility]) Asymptomatic microscopic hematuria Hypothyroidism, unspecified type ([facility]/HCC) Mixed hyperlipidemia ([facility]) Mixed hyperlipidemia [facility] Diagnosis Type 2 diabetes mellitus without complication, without long-term current use of insulin ([facility])- Primary Obesity, morbid ([facility]/HCC) Morbid obesity Atrial fibrillation, unspecified type ([facility]) Sleep apnea, obstructive Obstructive sleep apnea (adult) (pediatric) Primary hypertension ([facility]/HCC) Unspecified essential hypertension Type 2 diabetes mellitus without complication, without long-term current use of insulin ([facility])- Primary Sleep apnea, obstructive Obstructive sleep apnea (adult) (pediatric) Primary hypertension ([facility]/HCC) Unspecified essential hypertension Asymptomatic microscopic hematuria Obesity, morbid ([facility]) Morbid obesity Encounter for subsequent annual wellness visit (AWV) in Medicare patient- Primary Morbid (severe) obesity due to excess calories ([facility]) Body mass index (BMI) 45.0-49.9, adult ([facility]) Sleep apnea, obstructive Obstructive sleep apnea (adult) (pediatric) Atrial fibrillation, unspecified type ([facility]) Primary hypertension ([facility]) Unspecified essential hypertension Type 2 diabetes mellitus without complication, without long-term current use of insulin ([facility]) Asymptomatic microscopic hematuria Hypothyroidism, unspecified type ([facility]) Acute bacterial conjunctivitis, unspecified laterality- Primary documented [facility] Diagnosis Acute cystitis without hematuria- Primary documented in [facility]* Diagnosis Mixed hyperlipidemia ([facility]) Mixed hyperlipidemia Hypothyroidism, unspecified type ([facility]) Primary hypertension ([facility]) Unspecified essential hypertension Type 2 diabetes mellitus without complication, without long-term current use of insulin ([facility]) Gout, unspecified documented [facility]* Diagnosis Primary hypertension ([facility]) Unspecified essential hypertension documented in [facility]* Diagnosis Type 2 diabetes mellitus without complication, without long-term current use of insulin ([facility])- Primary Obesity, morbid ([facility]) Morbid obesity Atrial fibrillation, unspecified type ([facility]) Sleep apnea, obstructive Obstructive sleep apnea (adult) (pediatric) Primary hypertension (CMS/HCC) Unspecified essential hypertension Type 2 diabetes mellitus without complication, without long-term current use of insulin (CMS/HCC)- Primary Sleep apnea, obstructive Obstructive sleep apnea (adult) (pediatric) Primary hypertension (CMS/HCC) Unspecified essential hypertension Asymptomatic microscopic hematuria Obesity, morbid (CMS/HCC) Morbid obesity Encounter for subsequent annual wellness visit (AWV) in Medicare patient- Primary Morbid (severe) obesity due to excess calories ([facility]) Body mass index (BMI) 45.0-49.9, adult ([facility]) Sleep apnea, obstructive Obstructive sleep apnea (adult) (pediatric) Atrial fibrillation, unspecified type (CMS/HCC) Primary hypertension (CMS/HCC) Unspecified essential hypertension Type 2 diabetes mellitus without complication, without long-term current use of insulin ([facility]) Asymptomatic microscopic hematuria Hypothyroidism, unspecified type (CMS/HCC) Type 2 diabetes mellitus without complication, without long-term current use of insulin (CMS/HCC) documented in this encounter [facility]* Diagnosis Type 2 diabetes mellitus without complication, without long-term current use of insulin ([facility]/HCC)- Primary Obesity, morbid (CMS/HCC) Morbid obesity Atrial fibrillation, unspecified type (CMS/HCC) Sleep apnea, obstructive Obstructive sleep apnea (adult) (pediatric) Primary hypertension (CMS/HCC) Unspecified essential hypertension Type 2 diabetes mellitus without complication, without long-term current use of insulin (CMS/HCC)- Primary Sleep apnea, obstructive Obstructive sleep apnea (adult) (pediatric) Primary hypertension (CMS/HCC) Unspecified essential hypertension Asymptomatic microscopic hematuria Obesity, morbid ([facility]) Morbid obesity Encounter for subsequent annual wellness visit (AWV) in Medicare patient- Primary Morbid (severe) obesity due to excess calories (CMS/HCC) Body mass index (BMI) 45.0-49.9, adult (CMS/HCC) Sleep apnea, obstructive Obstructive sleep apnea (adult) (pediatric) Atrial fibrillation, unspecified type (CMS/HCC) Primary hypertension (CMS/HCC) Unspecified essential hypertension Type 2 diabetes mellitus without complication, without long-term current use of insulin ([facility]) Asymptomatic microscopic hematuria Hypothyroidism, unspecified type (CMS/[facility]) Hypothyroidism, unspecified type (CMS/[facility]) Gout, unspecified Type 2 diabetes mellitus without complication, without long-term current use of insulin ([facility]) documented in this encounter [facility]* Diagnosis Type 2 diabetes mellitus without complication, without long-term current use of insulin ([facility] [facility] Primary Obesity, morbid ([facility]) Morbid obesity Atrial fibrillation, unspecified type (HCC) Sleep apnea, obstructive Obstructive sleep apnea (adult) (pediatric) Primary hypertension Unspecified essential hypertension Type 2 diabetes mellitus without complication, without long-term current use of insulin (HCC)- Primary Sleep apnea, obstructive Obstructive sleep apnea (adult) (pediatric) Primary hypertension Unspecified essential hypertension Asymptomatic microscopic hematuria Obesity, morbid ([facility]) Morbid obesity Encounter for subsequent annual wellness visit (AWV) in Medicare patient- Primary Morbid (severe) obesity due to excess calories ([facility]) Body mass index (BMI) 45.0-49.9, adult ([facility]) Sleep apnea, obstructive Obstructive sleep apnea (adult) (pediatric) Atrial fibrillation, unspecified type (HCC) Primary hypertension Unspecified essential hypertension Type 2 diabetes mellitus without complication, without long-term current use of insulin ([facility]) Asymptomatic microscopic hematuria Hypothyroidism, unspecified type Type 2 diabetes mellitus without complication, without long-term current use of insulin ([facility])- Primary Sleep apnea, obstructive Obstructive sleep apnea (adult) (pediatric) Multiple lung nodules Other diseases of lung, not elsewhere classified Atrial fibrillation, unspecified type (HCC) Primary hypertension Unspecified essential hypertension Asymptomatic microscopic hematuria Hypothyroidism, unspecified type Gout, unspecified cause, unspecified chronicity, unspecified site Mixed hyperlipidemia Mixed hyperlipidemia Morbid (severe) obesity due to excess calories ([facility]) Body mass index (BMI) 45.0-49.9, adult ([facility]) Encounter for screening mammogram for malignant neoplasm of breast History of tobacco abuse documented in this encounter [facility] HealthcareEvaluation note* Diagnosis Type 2 diabetes mellitus without complication, without long-term current use of insulin (HCC)- Primary Obesity, morbid ([facility]) Morbid obesity Atrial fibrillation, unspecified type (HCC) Sleep apnea, obstructive Obstructive sleep apnea (adult) (pediatric) Primary hypertension Unspecified essential hypertension Type 2 diabetes mellitus without complication, without long-term current use of insulin ([facility])- Primary Sleep apnea, obstructive Obstructive sleep apnea (adult) (pediatric) Primary hypertension Unspecified essential hypertension Asymptomatic microscopic hematuria Obesity, morbid ([facility]) Morbid obesity Encounter for subsequent annual wellness visit (AWV) in Medicare patient- Primary Morbid (severe) obesity due to excess calories ([facility]) Body mass index (BMI) 45.0-49.9, adult ([facility]) Sleep apnea, obstructive Obstructive sleep apnea (adult) (pediatric) Atrial fibrillation, unspecified type (HCC) Primary hypertension Unspecified essential hypertension Type 2 diabetes mellitus without complication, without long-term current use of insulin ([facility]) Asymptomatic microscopic hematuria Hypothyroidism, unspecified type Type 2 diabetes mellitus without complication, without long-term current use of insulin ([facility])- Primary Sleep apnea, obstructive Obstructive sleep apnea (adult) (pediatric) Multiple lung nodules Other diseases of lung, not elsewhere classified Atrial fibrillation, unspecified type (HCC) Primary hypertension Unspecified essential hypertension Asymptomatic microscopic hematuria Hypothyroidism, unspecified type Gout, unspecified cause, unspecified chronicity, unspecified site Mixed hyperlipidemia Mixed hyperlipidemia Morbid (severe) obesity due to excess calories ([facility]) Body mass index (BMI) 45.0-49.9, adult ([facility]) Encounter for screening mammogram for malignant neoplasm of breast History of tobacco abuse Primary hypertension Unspecified essential hypertension documented in this encounter [facility] HealthcareEvaluation note* Diagnosis Type 2 diabetes mellitus without complication, without long-term current use of insulin ([facility])- Primary Obesity, morbid ([facility]) Morbid obesity Atrial fibrillation, unspecified type ([facility]) Sleep apnea, obstructive Obstructive sleep apnea (adult) (pediatric) Primary hypertension Unspecified essential hypertension Type 2 diabetes mellitus without complication, without long-term current use of insulin ([facility])- Primary Sleep apnea, obstructive Obstructive sleep apnea (adult) (pediatric) Primary hypertension Unspecified essential hypertension Asymptomatic microscopic hematuria Obesity, morbid ([facility]) Morbid obesity Encounter for subsequent annual wellness visit (AWV) in Medicare patient- Primary Morbid (severe) obesity due to excess calories ([facility]) Body mass index (BMI) 45.0-49.9, adult ([facility]) Sleep apnea, obstructive Obstructive sleep apnea (adult) (pediatric) Atrial fibrillation, unspecified type (HCC) Primary hypertension Unspecified essential hypertension Type 2 diabetes mellitus without complication, without long-term current use of insulin ([facility]) Asymptomatic microscopic hematuria Hypothyroidism, unspecified type Type 2 diabetes mellitus without complication, without long-term current use of insulin (HCC)- Primary Sleep apnea, obstructive Obstructive sleep apnea (adult) (pediatric) Multiple lung nodules Other diseases of lung, not elsewhere classified Atrial fibrillation, unspecified type (HCC) Primary hypertension Unspecified essential hypertension Asymptomatic microscopic hematuria Hypothyroidism, unspecified type Gout, unspecified cause, unspecified chronicity, unspecified site Mixed hyperlipidemia Mixed hyperlipidemia Morbid (severe) obesity due to excess calories ([facility]) Body mass index (BMI) 45.0-49.9, adult ([facility]) Encounter for screening mammogram for malignant neoplasm of breast History of tobacco abuse Multiple lung nodules- Primary Other diseases of lung, not elsewhere classified documented in this encounter [facility] HealthcareEvaluation note* Diagnosis Type 2 diabetes mellitus without complication, without long-term current use of insulin ([facility])- Primary Obesity, morbid ([facility]) Morbid obesity Atrial fibrillation, unspecified type ([facility]) Sleep apnea, obstructive Obstructive sleep apnea (adult) (pediatric) Primary hypertension Unspecified essential hypertension Type 2 diabetes mellitus without complication, without long-term current use of insulin ([facility])- Primary Sleep apnea, obstructive Obstructive sleep apnea (adult) (pediatric) Primary hypertension Unspecified essential hypertension Asymptomatic microscopic hematuria Obesity, morbid ([facility]) Morbid obesity Encounter for subsequent annual wellness visit (AWV) in Medicare patient- Primary Morbid (severe) obesity due to excess calories ([facility]) Body mass index (BMI) 45.0-49.9, adult ([facility]) Sleep apnea, obstructive Obstructive sleep apnea (adult) (pediatric) Atrial fibrillation, unspecified type ([facility]) Primary hypertension Unspecified essential hypertension Type 2 diabetes mellitus without complication, without long-term current use of insulin ([facility]) Asymptomatic microscopic hematuria Hypothyroidism, unspecified type Type 2 diabetes mellitus without complication, without long-term current use of insulin ([facility])- Primary Sleep apnea, obstructive Obstructive sleep apnea (adult) (pediatric) Multiple lung nodules Other diseases of lung, not elsewhere classified Atrial fibrillation, unspecified type ([facility]) Primary hypertension Unspecified essential hypertension Asymptomatic microscopic hematuria Hypothyroidism, unspecified type Gout, unspecified cause, unspecified chronicity, unspecified site Mixed hyperlipidemia Mixed hyperlipidemia Morbid (severe) obesity due to excess calories ([facility]) Body mass index (BMI) 45.0-49.9, adult ([facility]) Encounter for screening mammogram for malignant neoplasm of breast History of tobacco abuse Dog bite, initial encounter- Primary documented in this encounter [facility] HealthcareEvaluation note* Diagnosis Type 2 diabetes mellitus without complication, without long-term current use of insulin ([facility])- Primary Obesity, morbid ([facility]) Morbid obesity Atrial fibrillation, unspecified type (HCC) Sleep apnea, obstructive Obstructive sleep apnea (adult) (pediatric) Primary hypertension Unspecified essential hypertension Type 2 diabetes mellitus without complication, without long-term current use of insulin (HCC)- Primary Sleep apnea, obstructive Obstructive sleep apnea (adult) (pediatric) Primary hypertension Unspecified essential hypertension Asymptomatic microscopic hematuria Obesity, morbid ([facility]) Morbid obesity Encounter for subsequent annual wellness visit (AWV) in Medicare patient- Primary Morbid (severe) obesity due to excess calories ([facility]) Body mass index (BMI) 45.0-49.9, adult ([facility]) Sleep apnea, obstructive Obstructive sleep apnea (adult) (pediatric) Atrial fibrillation, unspecified type (HCC) Primary hypertension Unspecified essential hypertension Type 2 diabetes mellitus without complication, without long-term current use of insulin (HCC) Asymptomatic microscopic hematuria Hypothyroidism, unspecified type Type 2 diabetes mellitus without complication, without long-term current use of insulin ([facility])- Primary Sleep apnea, obstructive Obstructive sleep apnea (adult) (pediatric) Multiple lung nodules Other diseases of lung, not elsewhere classified Atrial fibrillation, unspecified type (HCC) Primary hypertension Unspecified essential hypertension Asymptomatic microscopic hematuria Hypothyroidism, unspecified type Gout, unspecified cause, unspecified chronicity, unspecified site Mixed hyperlipidemia Mixed hyperlipidemia Morbid (severe) obesity due to excess calories ([facility]) Body mass index (BMI) 45.0-49.9, adult ([facility]) Encounter for screening mammogram for malignant neoplasm of breast History of tobacco abuse Gout, unspecified Type 2 diabetes mellitus without complication, without long-term current use of insulin (HCC) Hypothyroidism, unspecified type documented in this encounter [facility] Outpatient Procedure (Routine) - Pending Review Specialty Diagnoses / Procedures Referred By Masoud t Referred To Contact [facility] Diagnoses History of colon polyps Procedures COLONOSCOPY SCREENING COLONOSCOPY FLX DX W/COLLJ SPEC [place] [address] [place] [address] [facility] [address] [place] [address] Referral ID Status Reason Start Date Expiration Date Visits Requested Visits Authorized [id number] Pending Review Auto-Generat ed Referral 3 04/29/2024 1 1 [facility] for referral (narrative)* Outpatient Procedure (Routine) - Closed Specialty Diagnoses / Procedures Referred By Masoud simms Referred To Contact [facility] Diagnoses History of colon polyps Procedures COLONOSCOPY SCREENING COLONOSCOPY FLX DX W/COLLJ [place] [address] [place] [address] [address] Referral ID Status Reason Start Date Expiration Date V isits Requested Visits Authorized [id number] Closed Auto-Generate d Referral 06/05/2023 05/17/2024 1 1 [facility] for visit Narrative* Outpatient Procedure (Routine) - Closed Specialty Diagnoses / Procedures Referred By Masoud simms Referred To Contact [facility] Diagnoses History of colon polyps Procedures COLONOSCOPY SCREENING COLONOSCOPY FLX DX W/COLLJ SPEC WHEN PFRMD RenaeHarleenDO [id number] [place] [address] [address] Referral ID Status Reason Start Date Expiration Date V isits Requested Visits Authorized [id number] Closed Auto-Generate d Referral 06/05/2023 05/17/2024 1 1 [facility] Summary Purpose Family History No Family [...] Kaila Goldstein, ANA [address] [place] [address] Referral ID Status Reason Start Date Expiration Date V isits Requested Visits Authorized [id number] Authorized 06/24/2023 12/21/2023 1 1 Additional Source Comments INFORMATION SOURCE (unrecogn ized section and content) DATE CREATED AUTHOR 11/07/2020 [facility] DATE CREATED AUTHOR AUTHOR'S ORGANIZ ATION 09/19/2022 [facility] DATE CREATED AUTHOR AUTHOR'S ORGANIZ ATION 03/15/2023 [facility] DATE CREATED AUTHOR AUTHOR'S ORGANIZ ATION 04/11/2023 [facility] DATE CREATED AUTHOR AUTHOR'S ORGANIZ ATION 06/22/2023 [facility] DATE CREATED AUTHOR AUTHOR'S ORGANIZ ATION 06/24/2023 [facility] DATE CREATED AUTHOR AUTHOR'S ORGANIZ ATION 11/05/2024 [facility] DATE CREATED AUTHOR AUTHOR'S ORGANIZ ATION 12/13/[address] [facility] Care Teams (unrecognized sec tion and content) Team Status: Active Member Role Status Dates Kaila Goldstein Primary Care Provider Active Team Status: Inactive Member Role Status Dates Kaila Goldstein Primary Care Provider, Attending Provi abhishek Active Back Up Worker Relationship Specialty Start Date End Date Kaila Goldstein CALL CENTER TRAINER [address] [place] [address] PCP - General Family Medicine 03/24/23 Back Up Worker Relationship Specialty Start Date End Date Kaila Goldstein CNP [address] [place] [address] PCP - General Family Medicine 03/24/23 Back Up Worker Relationship Specialty Start Date End Date Kaila Goldstein CNP [address] [place] [address] PCP - General Family Medicine 03/24/23 Back Up Worker Relationship Specialty Start Date End Date Kaila Goldstein CNP [address] [place] [address] PCP - General Family Medicine 03/24/23 Back Up Worker Relationship Specialty Start Date End Date Quinn Antunez MD PCP - General Family Medicine 12/08/22 Quinn Antunez MD [address] [place] [address] PCP - Devoted 02/15/23 Kaila Goldstein NP [address] [place] [address] Referring Physician Nurse Practitioner 12/08/22 Back Up Worker Relationship Specialty Start Date End Date Quinn Antunez MD [address] [place] [address] PCP - Devoted 05/18/22 Quinn Antunez MD [address] [place] [address] PCP - General Family Medicine 08/26/23 Kaila Goldstein NP Referring Physician Nurse Practitioner 12/08/22 Kaila Goldstein NP [address] [place] [address] Nurse Practitioner Family Medicine 08/26/23 Back Up Worker Relationship Specialty Start Date End Date Quinn Antunez MD [address] [place] [address] PCP - Devoted 05/18/22 Quinn Antunez MD [address] [place] [address] PCP - General Family Medicine 08/26/23 Kaila Goldstein NP Referring Physician Nurse Practitioner 12/08/22 Kaila Goldstein NP [address] [place] [address] Nurse Practitioner Family Medicine 08/26/23 Back Up Worker Relationship Specialty Start Date End Date Quinn Antunez MD [address] [place] [address] PCP - Devoted 05/18/22 Quinn Antunez MD [address] [place] [address] PCP - General Family Medicine 08/26/23 Kaila Goldstein NP Referring Physician Nurse Practitioner 12/08/22 Kaila Goldstein NP [address] [place] [address] Nurse Practitioner Family Medicine 08/26/23 Back Up Worker Relationship Specialty Start Date End Date Quinn Antunez MD [address] [place] [address] PCP - Devoted 05/18/22 Quinn Antunez MD [address] [place] [address] PCP - General Family Medicine 08/26/23 Kaila Goldstein NP Referring Physician Nurse Practitioner 12/08/22 Kaila Goldstein NP [address] [place] [address] Nurse Practitioner Family Medicine 08/26/23 Back Up Worker Relationship Specialty Start Date End Date Quinn Antunez MD [address] [place] [address] PCP - Devoted 05/18/22 05/17/24 Quinn Antunez MD [address] [place] [address] PCP - General Family Medicine 08/26/23 Kaila Goldstein NP Referring Physician Nurse Practitioner 12/08/22 Kaila Goldstein NP [address] [place] [address] Nurse Practitioner Family Medicine 08/26/23 Back Up Worker Relationship Specialty Start Date End Date Quinn Antunez MD [address] [place] [address] PCP - General Family Medicine 08/26/23 Kaila Goldstein NP Referring Physician Nurse Practitioner 12/08/22 Kiala Goldstein NP [address] [place] [address] Nurse Practitioner Family Medicine 08/26/23 Back Up Worker Relationship Specialty Start Date End Date Quinn Antunez MD [address] [place] [address] PCP - General Family Medicine 08/26/23 Quinn Antunez MD [address] [place] [address] PCP - Jose C PARKER 05/18/24 Kaila Goldstein NP Referring Physician Nurse Practitioner 12/08/22 Kaila Goldstein NP [address] [place] [address] Nurse Practitioner Family Medicine 08/26/23 Back Up Worker Relationship Specialty Start Date End Date Quinn Antunez MD [address] [place] [address] PCP - General Family Medicine 08/26/23 Quinn Antunez MD [address] [place] [address] PCP - Jose C PARKER 05/18/24 Kaila Goldstein NP Referring Physician Nurse Practitioner 12/08/22 Kaila Goldstein NP [address] [place] [address] Nurse Practitioner Family Medicine 08/26/23 Back Up Worker Relationship Specialty Start Date End Date Quinn Antunez MD [address] [place] [address] PCP - General Family Medicine 08/26/23 Quinn Antunez MD [address] [place] [address] PCP - Jose C PARKER 05/18/24 Kaila Goldstein NP Referring Physician Nurse Practitioner 12/08/22 Kaila Goldstein NP [address] [place] [address] Nurse Practitioner Family Medicine 08/26/23 Back Up Worker Relationship Specialty Start Date End Date Quinn Antunez MD [address] [place] [address] PCP - General Family Medicine 08/26/23 Quinn Antunez MD [address] [place] [address] PCP - Jose C PARKER 05/18/24 Kaila Goldstein NP Referring Physician Nurse Practitioner 12/08/22 Kaila Goldstein NP [address] [place] [address] Nurse Practitioner Family Medicine 08/26/23 Back Up Worker Relationship Specialty Start Date End Date Quinn Antunez MD [address] [place] [address] PCP - General Family Medicine 08/26/23 Quinn Antunez MD [address] [place] [address] PCP - Jose C PARKER 05/18/24 Kaila Goldstein NP Referring Physician Nurse Practitioner 12/08/22 Kaila Goldstein NP [address] [place] [address] Nurse Practitioner Family Medicine 08/26/23 Back Up Worker Relationship Specialty Start Date End Date Quinn Antunez MD [address] [place] [address] PCP - General Family Medicine 08/26/23 Quinn Antunez MD [address] [place] [address] PCP - Jose C PARKER 05/18/24 Kaila Goldstein NP Referring Physician Nurse Practitioner 12/08/22 Kaila Goldstein NP [address] [place] [address] Nurse Practitioner Family Medicine 08/26/23 Back Up Worker Relationship Specialty Start Date End Date Quinn Antunez MD [address] [place] [address] PCP - General Family Medicine 08/26/23 Kaila Goldstein NP Referring Physician Nurse Practitioner 12/08/22 Kaila Goldstein NP [address] [place] [address] Nurse Practitioner Family Medicine 08/26/23 Goals (unrecognized [...] or prosecute any alcohol or drug abuse patient.[facility] the event this information is protected by the Federal Confidentiality of Alcohol and Drug Abuse Patient Records regulations: The Federal rules restrict any use of the information to criminally investigate or prosecute any alcohol or drug abuse patient.[facility] the event this information is protected by the Federal Confidentiality of Alcohol and Drug Abuse Patient Records regulations: The Federal rules restrict any use of the information to criminally investigate or prosecute any alcohol or drug abuse patient.[facility] the event this information is protected by the Federal Confidentiality of Alcohol and Drug Abuse Patient Records regulations: The Federal rules restrict any use of the information to criminally investigate or prosecute any alcohol or drug abuse patient.[facility] Reason for Visit (unrecogniz ed section and content) Reason Comments Appointment Reason Comments New Patient Colonoscopy with his tory of natacha Reason Comments Results Reason Onset Date Comments Med Refill 03/02/2024 Reason Comments Med Refill Reason Onset Date Comments Med Refill 02/12/2024 Reason Comments Diabetes Inactive Administered Medications - up to 3 [...] BE BASED ON THE PRIMARY CLINICAL RECORDS. [facility] [employer] [facility]. provides no warranty or guarantee of the accuracy or completeness of information in this document.
[2025-01-12 13:17] LABS: Anion Gap 13.2; Blood Urea Nitrogen 15.0 mg/dL (7.0-18.0); Calcium 9.3 mg/dL (8.5-10.1); Carbon Dioxide 24.9 mmol/L (21.0-32.0); Chloride 106 mmol/L (98-107); Estimated GFR (African America >60 (>=60 mL/min/1.73m^2); Estimated GFR (Non-African Ame >60 (>=60 mL/min/1.73m^2); Glucose 102 mg/dL (74-106); Potassium 4.1 mmol/L (3.5-5.1); Sodium 140 mmol/L (136-145)
== END 2025-01-12 12:46 | disposition home or self-care (01) ==
LOC: LAB 12:47
PROVIDERS: PCP Nurse Practitioner; Visit Provider Internal Medicine Interventional Cardiology
DX: I10 Essential (primary) hypertension (principal)
CPT/HCPCS: 36415; 80048

== ENCOUNTER 2025-03-22 11:17 | Outpatient (OUT) | payer MEDICARE, SELFPAY ==
--- OUTSIDE RECORDS SUMMARY | 2025-03-22 11:22 | XMS_ITS | Clinical Summary ---
Author Organization [facility] Address [address] [place] [address] Care Team Providers Care Skeins Yarn Examiner Name Role Phone Kaila Goldstein MD Primary Care Provider [phone] Allergies Active AllergyReactionsCriticalityNoted DateCommentsFexofenadine HclHives 05/06/2022pironolactoneHives,Pqvittk3304/29/20232997Llsfsdzng04/20/2022 Medications MedicationSigDispense QuantityRefillsLast FilledStart DateEnd DateStatus allopurinol (Zyloprim) 100 mg tablet allopurinol 100 mg tablet TAKE 1 TABLET BY MOUTH EVERY DAYActive levothyroxine (Synthroid, Levoxyl) 100 mcg tablet levothyroxine 100 mcg tablet TAKE 1 TABLET BY MOUTH EVERY DAYActive losartan (Cozaar) 50 mg tablet losartan 50 mg tablet TAKE 1 TABLET BY MOUTH EVERY DAYActive metFORMIN (Glucophage) 500 mg tablet metformin 500 mg tablet TAKE 1 TABLET BY MOUTH EVERY DAYActive calcium 500 mg calcium (1,250 mg) tablet Take 1 tablet by mouth in the morning.Active multivitamin tablet Take 1 tablet by mouth in the morning.Active spironolactone (Aldactone) 25 mg tablet Indications:Primary hypertension,Edema of both lower extremitiesTAKE 1 TABLET BY MOUTH EVERY DAY IN THE MORNING 90 tablet 4Active carvedilol (Coreg) 6.25 mg tablet Indications:Essential hypertensionTAKE 1 TABLET (6.25 MG) BY MOUTH WITH BREAKFAST AND WITH EVENING MEAL. STOP METOPROLOL 180 tablet //6Active Ozempic 0.25 mg or 0.5 mg (2 mg/3 mL) pen injector Inject 0.25 mg under the skin once a week.5Active furosemide (Lasix) 20 mg tablet Indications:Edema of lower extremityTake 1 tablet (20 mg) by mouth in the morning. 90 tablet 307//090434/6Active Eliquis 5 mg tablet Indications:Paroxysmal atrial fibrillation (CMS/HCC)TAKE 1 TABLET BY MOUTH TWO TIMES DAILY. 60 tablet 1105Active rosuvastatin (Crestor) 5 mg tablet Indications:Hyperlipidemia, unspecified hyperlipidemia typeTake 1 tablet (5 mg) by mouth at bedtime. 90 tablet 5Active rosuvastatin (Crestor) 5 mg tablet Indications:Hyperlipidemia, unspecified hyperlipidemia typeTAKE 1 TABLET (5 MG) BY MOUTH EVERY OTHER DAY FOR 14 DAYS, THEN 1 TABLET (5 MG) AT BEDTIME. 83 tablet Discontinued Active Problems ProblemNoted DateDiagnosed DateAcute bacterial ybsiktuxenikbj42/22/2024cute cystitis without hkywkoowz23/13/2024symptomatic microscopic wuyhfianq65/03/2024 Overview (11/17/2023): Last Assessment & Plan: Repeat in 1 month Class 3 vcmcjri1606/18/2023rimary osteoarthritis, right ankle and foot06/12/2023 06/12/2023re-operative cardiovascular jhrcqjqecds87/26/2024 Assessment & Plan (06/12/2023 6:45 PM EST): RCRI 0??points Class I Risk 3.9??% 30-day risk of , SD, or cardiac arrest From a cardiac perspective pt may proceed with colonoscopy, she is a low risk for a low risk procedure. She may hold elquis for 2-3 days prior and resume post op, with the knowledge that there is a risk for stroke with holding anticoagulation. Please monitor hemodynamics carefully and prevent any major fluid shifts. Obesity, Overview (06/12/2023): Last Assessment & Plan: Needs to focus on diet modification and weight loss Abnormal xmcgqgfze52rrhythmiaGout History of tobacco abuseHypothyroidism Joint painMultiple lung nodules ain, foot, right, icwyygr58anic attacks Sleep apnea, oyxbzccpmvv77 Overview (06/12/2023): Last Assessment & Plan: Is doing well with current therapies no changes Type 2 diabetes lwghcluu98 Overview (06/12/2023): Last Assessment & Plan: Is UTD with eye exam Check blood sugars daily, notify if <70 or >200. Take medications (pills or insulin) as directed. Monitor for s/s of hypoglycemia (sweaty, dizziness, nausea, vomiting, or shakiness). Watch for increase in thirst, urination, or appetite. Inspect feet frequently monitoring for open wounds , andalso recommend yearly eye exam. Pt should attempt to remain as physically active as chronic conditions allow, as well as trying to follow a diet low in carbohydrates, and simple sugars. Persistent atrial ddhszwaqdkwp65/15/2021 Assessment & Plan (06/12/2023 6:42 PM EST): MQJ8HT9 VASc= 4 Continue anticoagulation with eliquis- will need to hold 2-3 days for colonoscopy Monitor for s/s of bleeding Continue toprol, rate controlled and remains in NSR Oqegshekumjm21/06/2020Hyperlipidemia Assessment & Plan (06/12/2023 6:43 PM EST): Continue statin- lipitor 10 mg daily Hypertension Assessment & Plan (06/12/2023 6:43 PM EST): Hypertension is stable b/p 136/83 continue losartan, aldactone, and toprl Encounters DateTypeDepartmentCare KtuvBdqgbumrugw40/26/2025[facility] [address] [place] [facility] [place] [address] Nory Jane CNP Hyperlipidemia, unspecified hyperlipidemia type02/03/2025Ref[facility] [address] [place] [facility] [place] [address] Suleiman Grullon MD Paroxysmal atrial fibrillation (CMS/HCC)01/12/2025Telephone [facility] [address] [place] [facility] [place] [address] Opal Escamilla MA from Last 3 Months Immunizations ImmunizationAdministration DatesNext DueUnspecified Sars-Cov-2 Vaccination 06/04/2021,11/27/2020,11/06/2020Zoster, Vlvurecpihb68/04/2023 Family History Medical HistoryRelationNameCommentsNo Known ProblemsFatherNo Known Problems MotherRelationNameStatusCommentsFatherDeceasedMotherAlive Social History Tobacco UseTypesPacks/DayYears UsedDateSmoking Tobacco: FormerCigarettesQuit: 05/18/2007Smokeless Tobacco: Never Tobacco Cessation:Counseling Given: Not Answered Alcohol UseStandard Drinks/WeekCommentsNot Currently0 (1 standard drink = 0.6 oz pure alcohol)UT Safety & EnvironmentAnswerDate RecordedFear of Current or Ex-PartnerNot on file07/09/2023Emotionally AbusedNot on file07/09/2023hysically AbusedNot on file07/09/2023Sexually AbusedNot on file07/09/2023hysically or Sexually AbusedNot on file07/09/2023CommentsUnknownSex and Gender InformationValueDate RecordedSex Assigned at BirthNot on fileLegal SexFemale 11/13/2021 10:26 PM EDTGender IdentityNot on fileSexual OrientationNot on file Last Filed Vital Signs Vital SignReadingTime TakenCommentsBlood Nodfienk087/8312/12/2024 11:53 AM EDT Spkzm221612/12/2024 11:53 AM EDTTemperature--Respiratory Rate--Oxygen Saturation 94%12/12/2024 11:53 AM EDTInhaled Oxygen Concentration--Umasnk363 kg (330 lb) 12/12/2024 11:53 AM ALFHqmukc275.7 cm (5' 8 )12/12/2024 11:53 AM EDTBody Mass Index50.18012/12/2024 11:53 AM EDT Plan of Treatment Health MaintenanceDue DateLast DoneCommentsCT Imfiuapwlsai25/15/1957FIT-DNA 1956FIT1956FOBT1956Medicare Annual Wellness (AWV)1955 Bwwvuikkuasoc57/15/1957Diabetes: Retinopathy Eacazfrjw40/15/1967Depression Bcpcinjdt58/15/1969Diabetes: Urine Protein Lwyarlrwg45/15/1976Pneumococcal Vaccine: 50+ Years (1 of 2 - PCV)09/30/1975Adult Lhxcehk7009/29/1978Mammogram 1996Diabetes: Hemoglobin A1C/04/2020Fall Risk Screening 2COVID-19 Vaccine ( season)501/, 06/04/2021, 11/27/2020, Additional history existsInfluenza Vaccine (#1)5Colonoscopy /4Colorectal Cancer Exlifsolo49/01/2034Zoster Vaccines Qtyfaqxuf00/26/2023, 05/21/2022HIB VaccinesAged OutNo longer eligible based on patient's age to complete this topicHPV VaccinesAged OutNo longer eligible based on patient's age to complete this topicIPV VaccinesAged OutNo longer eligible based on patient's age to complete this topicMeningococcal B VaccineAged OutNo longer eligible based on patient's age to complete this topicMeningococcal VaccineAged OutNo longer eligible based on patient's age to complete this topic Rotavirus VaccinesAged OutNo longer eligible based on patient's age to complete this topic Procedures Procedure NamePriorityDate/TimeAssociated DiagnosisCommentsHEMOGLOBIN B8KYewilvd 03/29/2020 11:43 AM EST from Last 3 Months or Most Recently Relevant to Health Maintenance Results * Hemoglobin A1c (03/29/2020 11:43 AM EST)ComponentValueRef RangeTest Method Analysis TimePerformed AtPathologist SignatureHemoglobin A1C5.54.0 - 6.0 %LAB CONVERSIONSEstimated Average Okhpgqq646nkjb/LLAB CONVERSIONSSpecimen (Source) Anatomical Location / LateralityCollection Method / VolumeCollection Time Received Time03/29/2020 11:43 AM EST03/29/2020 11:43 AM EST Narrative LAB CONVERSIONS - 03/29/2020 2:57 PM EST No: Do not add to previous draw Authorizing ProviderResult TypeResult StatusJuan Mcguire NPLAB BLOOD ORDERABLES Final ResultPerforming OrganizationAddressCity/State/ZIP CodePhone Number LAB CONVERSIONS from Last 3 Months or Most Recently Relevant to Health Maintenance Insurance Care Teams Team MemberRelationshipSpecialtyStart DateEnd Date Kaila Goldstein MD [address] [place] [address] PCP - Rrczeub34/20/22
--- OUTSIDE RECORDS SUMMARY | 2025-03-22 11:22 | XMS_ITS | Patient Health Record ---
Author Organization [facility] [place] Address [address] [place] [address] Care Team Providers Care Filter Press Tender Head Name Role Phone Kaila Goldstein CNP Primary Care Provider Unavail able Allergies Allergen (clinical drug ingredient) Drug/Non Drug Allergy documented on EMR Reaction Allergy Type Onset Date Status spironolactone Spironolactone Unknown Drug Allergy ActiveMedicinal product containing thiazide and acting as diuretic agent (product)Thiazide-Type DiureticsUnknownDrug AllergyActive Reason For Referral No Information Medications Medication SIG (Take, Route, Frequency, Duration) Notes Start Date End Date Status Calcium UnknownLancetsUnknownLevothyroxine SodiumUnknownCentrumUnknownEliquisUnknown Alcohol SwabsUnknownMetoprolol SuccinateUnknownAllopurinolUnknownLosartan PotassiumUnknownmetFORMIN HClUnknownAtorvastatin CalciumUnknownBlood Glucose CalibrationUnknown Social History Tobacco Use: Social History Observation Description Date Details (start date - stop date) Former Smoker NA - NA Tobacco Use/Smoking Question Answer Notes Patient is a former smoker Problems Problem Type SNOMED Code ICD Code Onset Dates Problem Status W/U Status Risk Notes Problem Localized, primary o steoarthritis of the ankle and/or foot (751416568) Primary osteoarthritis, right ankle and foot (M19.071) ActiveconfirmedProblemArthralgia of the ankle and/or foot (139722275)Pain in right ankle and joints of right foot (M25.571)Activeconfirmed Plan Of Treatment No Information Insurance Providers Payer Name Payer Address Payer Phone Subscriber Number Group Number Insured Name Patient Relationship to Insured Coverage Start Date Coverage End Date [employer] [address] [place] [phone] [id number] Viola Coats - patient is the insured Medical (General) History Medical History History ICD Code Arthritis M19.90 Gout M10.9 Hypertension I10 Thyroid disease E07.9 Atrial fibrillation I48.91 Surgical History Surgery Date(Month/Year) Ablation 07/26/2020 lap sharon heart cath03/2020Appendectomythyroid biopsy08/09/2001tibal ligationparathyroid and thyroid removal
--- OUTSIDE RECORDS SUMMARY | 2025-03-22 11:22 | XMS_ITS | Encounter Summary ---
Author Organization [facility] Address [address] [place] [address] Care Team Providers Care Jewelry Sales Coordinator Name Role Phone Kaila Goldstein NP Unavailable [phone] Quinn Antunez MD Unavailable Quinn Antunez MD Primary Care Provider Kaila Goldstein NP Unavailable [phone] Quinn Antunez MD Unavailable Kaila Goldstein NP Unavailable Encounter Details DateTypeDepartmentCare Team (Latest Contact Info)Kyjmxwgyuzd87/16/2024Clinisync Result Encounter [facility] Unsolicited Kaila Goldstein NP [address] [place] [address] Social History Tobacco UseTypesPacks/DayYears UsedDateSmoking Tobacco: FormerCigarettes Comments:Last smoked 10-15 y ears Alcohol UseStandard Drinks/WeekCommentsNot Currently0 (1 standard drink = 0.6 oz pure alcohol)caffeine:sodaPHQ-2AnswerDate RecordedPatient Health Questionnaire-2 Jmnek7774CommentsUnknownSex and Gender InformationValueDate RecordedSex Assigned at FqkyyCyqjfx25/21/2024 9:22 AM ESTLegal SexFemale 09/15/2022 8:35 PM EDTGender TgmisbohQpflgu66/21/2024 9:22 AM ESTSexual RsjiputvifzDbihxmc08/21/2024 9:22 AM ESTdocumented as of this encounter Functional Status * Over the past 2 weeks, how often have you been bothered by any of the following problems?QuestionAnswerDate of AssessmentAuthorLittle interest or pleasure in doing thingsNot at all12/22/2023 10:29 AM Jazz Chávez MAFeeling down, depressed, or hopelessSeveral days12/22/2023 10:29 AM Jazz Garcia MAPatient Health Questionnaire-2 Psnfc587 10:29 AM Jazz Chávez MA * QuestionAnswerDate of AssessmentAuthorTrouble falling or staying asleep, or sleeping too muchSeveral days12/22/2023 10:29 AM Jazz Chávez MA Feeling tired or having little energySeveral days12/22/2023 10:29 AM Jazz Garcia MAPoor appetite or overeatingSeveral days12/22/2023 10:29 AM Jazz Chávez MAFeeling bad about yourself - or that you are a failure or have let yourself or your family downNot at all12/22/2023 10:29 AM Jazz Chávez MATrouble concentrating on things, such as reading the newspaper or watching televisionNot at all12/22/2023 10:29 AM Jazz Chávez MAMoving or speaking so slowly that other people could have noticed? Or the opposite - being so fidgety or restless that you have been moving around a lot more than usual.Not at all12/22/2023 10:29 AM Jazz Chávez MAThoughts that you would be better off or hurting yourself in some wayNot at all12/22/2023 10:29 AM Jazz Chávez MAPatient Health Questionnaire-9 Lugje303 10:29 AM Jazz Chávez MA * How difficult have these problems made it for you to do your work, take care of things at home, or get along with other people?AnswerDate of Assessment AuthorNot difficult at all12/22/2023 10:29 AM Jazz Chávez MA * Geriatric Depression Scale (Short Version)QuestionAnswerDate of Assessment AuthorAre you basically satisfied with your life?Yes12/22/2023 10:36 AM EDT Jazz Coombs MAHave you dropped many of your activities and interests? No12/22/2023 10:36 AM Jazz Chávez MADo you feel that your life is empty?No12/22/2023 10:36 AM Jazz Chávez MADo you often get bored?No 12/22/2023 10:36 AM Jazz Chávez MAAre you in good spirits most of the time?Yes12/22/2023 10:36 AM Jazz Chávez MAAre you afraid that something bad is going to happen to you?No12/22/2023 10:36 AM Jazz Chávez MADo you feel happy most of the time?Yes12/22/2023 10:36 AM BENJAMINT Jazz Coombs MADo you often feel helpless?No12/22/2023 10:36 AM BENJAMINT Jazz Coombs MADo you prefer to stay at home, rather than going out and doing new things?12/22/2023 10:36 AM Jazz Chávez MADo you feel you have more problems with memory than most?No12/22/2023 10:36 AM BENJAMINT Jazz Coombs MADo you think it is wonderful to be alive now?No 12/22/2023 10:36 AM Jazz Chávez MADo you feel pretty worthless the way you are now?12/22/2023 10:36 AM Jazz Chávez MADo you feel that your situation is hopeless?No12/22/2023 10:36 AM Jazz Chávez MADo you think that most people are better off than you are?No12/22/2023 10:36 AM Jazz Chávez MA documented as of this encounter Plan of Treatment Not on file documented as of this encounter Procedures Procedure NamePriorityDate/TimeAssociated DiagnosisCommentsCT CHEST WO CON 10/01/2023 2:24 PM EDT documented in this encounter Results * CT CHEST WO CON (10/01/2023 2:24 PM EDT)Anatomical RegionLateralityModality OtherSpecimen (Source)Anatomical Location / LateralityCollection Method / VolumeCollection TimeReceived Time10/01/2023 2:24 PM EDT Narrative 10/01/2023 2:27 PM EDT [facility] ?[address] ? [place] [id number] ? CT Scan Report ? Signed ? Patient: HORTENSIA BATES ?MR#: [id number] ?? : 1955 ?Acct:[id number] ?? Age/Sex: 68 / F ?ADM Date: 10/01/23 ?? Loc: CT ? Attending Dr: Kaila Goldstein COMPOSITION FLOOR SETTER ? Ordering Physician: Kaila Goldstein NP ?? Date of Service: 10/01/23 ?? Procedure(s): CT chest wo con ?? Accession Number(s): [id number] ? cc: Kaila Goldstein NP ? [facility] ? [address] [place] [address] ? [place] [address] ? Patient Name: ?? HORTENSIA Berry PAULO ? MRN: [id number] ? date: 1955 ?Sex: F ?? Assigned Patient Location: CT ?? Current Patient Location: CT ?? Accession/Order Number: [id number] ?? Exam Date: 10/01/2023 ??13:05 ?Report Date: 10/01/2023 ??14:24 ? At the request of: ?? KAILA GOLDSTEIN ? Procedure: ??CT chest wo con ? EXAMINATION: CT chest wo con ? HISTORY: MULTIPLE LUNG NODULES, LUNG NODULE F/U EXAM ? COMPARISON: CT chest 06/30/2023, 03/18/2023 ? TECHNIQUE: Multi-planar CT images were obtained without and/or with IV ?? contrast ?? as indicated by examination type. Axial, Coronal, and Sagittal images. Dose ?? reduction techniques were achieved by using automated exposure control and/or ?? adjustment of mA and/or kV according to patient size and/or use of iterative ?? reconstruction technique. ? FINDINGS: ?? LUNGS: Stable appearance of a few small nodules scattered within the lungs, ?? largest is within the right middle lobe, 8 mm. No new nodules. ?? PLEURA: No mass, effusion, or pneumothorax. ?? VASCULATURE: No abnormality. ?? BRADLEY: No mass or adenopathy. ?? MEDIASTINUM: No mass or adenopathy. ?? CARDIAC: No enlargement, pericardial thickening, or significant calcification. ? Coronary artery calcifications: ?? AORTA: No aneurysm or dissection. ?? CHEST WALL: No mass or axillary adenopathy. ?? BONES: No bone lesion or fracture. ?? LIMITED ABDOMEN: No suspicious findings Limited images of the upper abdomen. ?? OTHER: Negative. ? CT/CT chest wo con ?? IMPRESSION: ? 1. Lung-RADS Category 3- Probably benign. Probably benign finding(s)- short ?? term follow up suggested; includes nodules with a low likelihood of becoming a ? clinically active cancer. Six month LDCT. ?? 2. If nodules remain stable in 6 months (one year since initial discovery) ?? then ?? return to annual screening. ? Electronically authenticated by: JUNG ??DIEGO ?? Date: 10/01/2023 ??14:24 ? Dictated By: ?Jung Louis M.D. ? Signed By: ?10/01/23 1427 ? DD/ 1424 ? TD/TT: ? Office Professionals: Procedure Note Radiology, Radiologist, MD - 10/01/[address] [address] [address] Scan Report Signed Patient: HORTENSIA BATES JMR#: [id number] : 7Acct:[id number] Age/Sex: 68 / FADM Date: 10/01/23 Loc: CT Attending Dr: Kaila Goldstein NP Ordering Physician: Kaila Goldstein NP Date of Service: 10/01/23 Procedure(s): CT chest wo con Accession Number(s): [id number] cc: Kaila Goldstein NP The [address] [address] Patient Name: HORTENSIA BATES MRN: [id number] date: 1955 Sex: F Assigned Patient Location: CT Current Patient Location: CT Accession/Order Number: [id number] Exam Date: 10/01/2023 13:05 Report Date: 10/01/2023 14:24 At the request of: KAILA GOLDSTEIN Procedure: CT chest wo con EXAMINATION: CT chest wo con HISTORY: MULTIPLE LUNG NODULES, LUNG NODULE F/U EXAM COMPARISON: CT chest 06/30/2023, 03/18/2023 TECHNIQUE: Multi-planar CT images were obtained without and/or with IV contrast as indicated by examination type. Axial, Coronal, and Sagittal images.Dose reduction techniques were achieved by using automated exposure controland/or adjustment of mA and/or kV according to patient size and/or use ofiterative reconstruction technique. FINDINGS: LUNGS: Stable appearance of a few small nodules scattered within thelungs, largest is within the right middle lobe, 8 mm. No new nodules. PLEURA: No mass, effusion, or pneumothorax. VASCULATURE: No abnormality. BRADLEY: No mass or adenopathy. MEDIASTINUM: No mass or adenopathy. CARDIAC: No enlargement, pericardial thickening, or significantcalcification. Coronary artery calcifications: AORTA: No aneurysm or dissection. CHEST WALL: No mass or axillary adenopathy. BONES: No bone lesion or fracture. LIMITED ABDOMEN: No suspicious findings Limited images of the upperabdomen. OTHER: Negative. CT/CT chest wo con IMPRESSION: 1. Lung-RADS Category 3- Probably benign. Probably benign finding(s)-short term follow up suggested; includes nodules with a low likelihood ofbecoming a clinically active cancer. Six month LDCT. 2. If nodules remain stable in 6 months (one year since initial discovery) then return to annual screening. Electronically authenticated by: JUNG LOUIS Date: 10/01/2023 14:24 Dictated By: Jung Louis M.D. Signed By:10/01/23 1427 DD/ 142 TD/TT: Office Professionals: Authorizing ProviderResult TypeResult StatusLisa Goldstein NPCLINISYNC IMAGING Final Result documented in this encounter Visit Diagnoses Not on filedocumented in this encounter Care Teams Team MemberRelationshipSpecialtyStsouth lyon DateEnd Date Quinn Antunez MD [address] [place] [phone] PCP - [facility]05/18/2311 Quinn Antunez MD [address] [place] [address] [facility] Quinn Antunez MD [address] [place] [address] PCP - Jose C MA Kaila Goldstein NP [address] [place] [address] PCP - Jose C MA12/16/24 Kaila Goldstein NP Referring PhysicianNTexas [facility]12/08/2309 Kaila Goldstein NP [address] [place] [address] Nurse PractitionerFabristol county tuberculosis hospital Medicine08/25/2409documented as of this encounter
--- OUTSIDE RECORDS SUMMARY | 2025-03-22 11:22 | XMS_ITS | Encounter Summary ---
Author Organization [facility] Address [address] [place] [address] Care Team Providers Care Die Storage Clerk Name Role Phone Quinn Antunez MD Primary Care Provider [phone] Kaila Goldstein ACTIVITIES MANAGER Unavailable [phone] Quinn Antunez MD Unavailable Quinn Antunez MD Primary Care Provider Kaila Goldstein ACTIVITIES MANAGER Unavailable [phone] Quinn Antunez MD Unavailable Kaila Goldstein ACTIVITIES MANAGER Unavailable [phone] Encounter Details DateTypeDepartmentCare Team (Latest Contact Info)Jwawmvigqhq42/13/2024Clinisync Result Encounter [facility] External Department Unsolicited Kaila Goldstein NP [address] [place] [address] Social History Tobacco UseTypesPacks/DayYears UsedDateSmoking Tobacco: FormerCigarettes Comments:Last smoked 10-15 y ears Alcohol UseStandard Drinks/WeekCommentsNot Currently0 (1 standard drink = 0.6 oz pure alcohol)caffeine:sodaPHQ-2AnswerDate RecordedPatient Health Questionnaire-2 [id number] and Gender InformationValueDate RecordedSex Assigned at PjlklJvqyuk62/21/2024 9:22 AM ESTLegal SexFemale 09/15/2022 8:35 PM EDTGender UlawqfixSgamuv92/21/2024 9:22 AM ESTSexual VyiutgdxdnwYfxcsgi81/21/2024 9:22 AM ESTdocumented as of this encounter Functional Status * Over the past 2 weeks, how often have you been bothered by any of the following problems?QuestionAnswerDate of AssessmentAuthorLittle interest or pleasure in doing thingsNot at all12/22/2023 10:29 AM Jazz Chávez MAFeeling down, depressed, or hopelessSeveral days12/22/2023 10:29 AM Jazz Garcia MAPatient Health Questionnaire-2 Mrcvs387 10:29 AM Jazz Chávez MA * QuestionAnswerDate [...] 10:29 AM Jazz Chávez MAPatient Health Questionnaire-9 Cfitq273 10:29 AM Jazz Chávez MA * How [...] rather than going out and doing new things?No12/22/2023 10:36 AM Jazz Chávez MADo you feel you have more problems with memory than most?No12/22/2023 10:36 AM BENJAMINT Jazz Coombs MADo you think it is wonderful to be alive now?No 12/22/2023 10:36 AM Jazz Chávez MADo you feel pretty worthless the way you are now?No12/22/2023 10:36 AM Jazz Chávez MADo you feel that your situation is hopeless?12/22/2023 10:36 AM Jazz Chávez MADo you think that most people are better off than you are?No12/22/2023 10:36 AM Jazz Chávez MA documented as of this encounter Plan of Treatment Not on file documented as of this encounter Procedures Procedure NamePriorityDate/TimeAssociated DiagnosisCommentsCT CHEST WO CON 06/30/2023 11:53 AM EST documented in this encounter Results * CT CHEST WO CON (06/30/2023 11:53 AM EST)Anatomical RegionLateralityModality OtherSpecimen (Source)Anatomical Location / LateralityCollection Method / VolumeCollection TimeReceived Time06/30/2023 11:53 AM EST Narrative 06/30/2023 11:56 AM EST [facility] ?[address] ? [place] [id number] ? CT Scan Report ? Signed ? Patient: MANDARACHEALBLANCA BECKERVIPIN Berry ?MR#: [id number] ?? : 1955 ?Acct:[id number] ?? Age/Sex: 67 / F ?ADM Date: 06/30/23 ?? Loc: CT ? Attending Dr: Kaila Goldstein ACTIVITIES MANAGER ? Ordering Physician: Kaila Goldstein NP ?? Date of Service: 06/30/23 ?? Procedure(s): CT chest wo con ?? Accession Number(s): [id number] ? cc: Kaila Goldstein NP ? [facility] ? [address] [facility] ? [place] [address] ? Patient Name: ?? HORTENSIA BATES ? MRN: [facility]:[id number] ? date: 1955 ?Sex: F ?? Assigned Patient Location: CT ?? Current Patient Location: CT ?? Accession/Order Number: [id number] ?? Exam Date: 06/30/2023 ??10:03 ?Report Date: 06/30/2023 ??11:53 ? At the request of: ?? KAILA GOLDSTEIN ? Procedure: ??CT chest wo con ? EXAM: CT chest wo con ? HISTORY: Multiple Lung Nodule R91.8 ? COMPARISON: CT chest 03/18/2023. ? TECHNIQUE: CT imaging obtained through the chest without intravenous contrast. ? Coronal and axial MIP reformatted images obtained. ? FINDINGS: ?? Heart size is normal. No pericardial effusion. Normal thoracic vasculature. No ? thoracic lymphadenopathy. Central tracheobronchial tree is patent. No pleural ?? effusion or pneumothorax. ? Left lower lobe nodule, image 43, measures 6 x 5 mm, similar or slightly ?? decreased from prior. ? Right lower lobe, image 43, measures 2 mm, stable. ? The right middle lobe nodule has a triangular morphology, and measures ?? approximately 7 x 5 mm, with an average diameter of approximately 6 mm and ?? tracks along the minor fissure. This is not significantly changed. ?? Differential ?? includes a pulmonary lymph node. ? Additional 4 mm nodule along the right minor fissure on image 51 is also ?? unchanged. Differential includes a pulmonary lymph node. ? Bones and soft tissues: No suspicious bone findings. ? Partially imaged upper abdomen: Limited. ? CT/CT chest wo con ?? IMPRESSION: ?? Essentially stable pulmonary nodules, with the left lower lobe nodule similar ?? or possibly slightly decreased. Attention on follow-up chest CT in 3-6 months. ? Electronically authenticated by: GABY ??SARAHY ?? Date: 06/30/2023 ??11:53 ? Dictated By: ?Gaby Buregss M.D. ? Signed By: ?06/30/23 1156 ? DD/ 1153 ? TD/TT: ? Train Crew Member: Procedure Note Radiology, Radiologist, - 06/30/2023 [place] [address] CT Scan Report Signed Patient: HORTENSIA BATES R#: [id number] : 1955cct:[id number] Age/Sex: 67 / FADM Date: 06/30/23 Loc: CT Attending Dr: Kaila Goldstein ACTIVITIES MANAGER Ordering Physician: Kaila Goldstein NP Date of Service: 06/30/23 Procedure(s): CT chest wo con Accession Number(s): [id number] cc: Kaila Goldstein NP The [place] [id number] Patient Name: HORTENSIA BATES MRN: [id number] date: 1955 Sex: F Assigned Patient Location: CT Current Patient Location: CT Accession/Order Number: [id number] Exam Date: 06/30/2023 10:03 Report Date: 06/30/2023 11:53 At the request of: KAILA GOLDSTEIN Procedure: CT chest wo con EXAM: CT chest wo con HISTORY: Multiple Lung Nodule R91.8 COMPARISON: CT chest 03/18/2023. TECHNIQUE: CT imaging obtained through the chest without intravenouscontrast. Coronal and axial MIP reformatted images obtained. FINDINGS: Heart size is normal. No pericardial effusion. Normal thoracicvasculature. No thoracic lymphadenopathy. Central tracheobronchial tree is patent. Nopleural effusion or pneumothorax. Left lower lobe nodule, image 43, measures 6 x 5 mm, similar or slightly decreased from prior. Right lower lobe, image 43, measures 2 mm, stable. The right middle lobe nodule has a triangular morphology, and measures approximately 7 x 5 mm, with an average diameter of approximately 6 mm and tracks along the minor fissure. This is not significantly changed. Differential includes a pulmonary lymph node. Additional 4 mm nodule along the right minor fissure on image 51 is also unchanged. Differential includes a pulmonary lymph node. Bones and soft tissues: No suspicious bone findings. Partially imaged upper abdomen: Limited. CT/CT chest wo con IMPRESSION: Essentially stable pulmonary nodules, with the left lower lobe nodulesimilar or possibly slightly decreased. Attention on follow-up chest CT in 3-6months. Electronically authenticated by: GABY BURGESS Date: 1:53 Dictated By: Gaby Burgess M.D. Signed By:06/30/23 1156 DD/ 1153 TD/TT: Train Crew Member: Authorizing ProviderResult TypeResult StatusLisa Goldstein NPCLINISYNC IMAGING Final Result documented in this encounter Visit Diagnoses Not on filedocumented in this encounter Care Teams Team MemberRelationshipSpecialtyStart DateEnd Date Quinn Antunez MD PCP - GeneralFamily Medicine12/08//02/08 Quinn Antunez MD [address] [place] [address] PCP - [facility]05/18/2311 Quinn Antunez MD [address] [place] [address] PCP - [facility]08/26/23 Quinn Antunez MD [address] [place] [address] PCP - [place] Kaila Goldstein NP [address] [place] [address] PCP - [place]12/16/24 Kaila Goldstein NP Referring PhysicianNjackson c. [facility] Practitioner12/08/2309 Kaila Goldstein NP [address] [place] [phone] Nurse PractitionerFaAtrium Health [facility]08/25/2409documented as of this encounter
--- OUTSIDE RECORDS SUMMARY | 2025-03-22 11:22 | XMS_ITS | Encounter Summary ---
Author Organization [facility] Address [address] [place] [address] Care Team Providers Care Wood Pattern Maker Name Role Phone Kaila Goldstein MD Primary Care Provider [phone] Reason for Visit * ReasonCommentsMed Refill Encounter Details DateTypeDepartmentCare Team (Latest Contact Info)Ajqdupqglqi80/26/2025Refill [facility] [address] [place] [address] Nory Jane, FAMILY ASSISTANT [address] [place] [phone] Hyperlipidemia, unspecified hyperlipidemia type Social History Tobacco UseTypesPacks/DayYears UsedDateSmoking Tobacco: FormerCigarettesQuit: 05/18/2007Smokeless Tobacco: NeverAlcohol UseStandard Drinks/WeekCommentsNot Currently0 (1 standard drink = 0.6 oz pure alcohol)NM Safety & EnvironmentAnswer Date RecordedFear of Current or Ex-PartnerNot on file07/09/2023Emotionally AbusedNot on file07/09/2023hysically AbusedNot on file07/09/2023Sexually Abused Not on file07/09/2023hysically or Sexually AbusedNot on file07/09/2023 CommentsUnknownSex and Gender InformationValueDate RecordedSex Assigned at Not on fileLegal GciAtrfgf43/29/2022 10:26 PM EDTGender IdentityNot on file Sexual OrientationNot on filedocumented as of this encounter Plan of Treatment Not on file documented as of this encounter Visit Diagnoses Diagnosis Hyperlipidemia, unspecified hyperlipidemia type documented in this encounter Care Teams Team MemberRelationshipSpecialtyStart DateEnd Date Kaila Goldstein MD [address] [place] [address] PCP - Psnihnn91/20/22documented as of this encounter
--- OUTSIDE RECORDS SUMMARY | 2025-03-22 11:22 | XMS_ITS | Encounter Summary ---
Author Organization [facility] Address [address] [place] [address] Care Team Providers Care De Icer Installer Name Role Phone Quinn Antunez MD Primary Care Provider [phone] AicKaila taylor ASSEMBLY LINE SUPERVISOR Unavailable Quinn Antunez MD Unavailable Quinn Antunez MD Primary Care Provider [phone] AicKaila taylor ASSEMBLY LINE SUPERVISOR Unavailable [phone] Quinn Antunez MD Unavailable AichholKaila prater ASSEMBLY LINE SUPERVISOR Unavailable [phone] Encounter Details DateTypeDepartmentCare Team (Latest Contact Info)Ecastcrwjhi47/01/2024Clinisync Result Encounter [facility] External Department Unsolicited Provider, Generic External Data Social History Tobacco UseTypesPacks/DayYears UsedDateSmoking Tobacco: FormerCigarettes Comments:Last smoked 10-15 y ears Alcohol UseStandard Drinks/WeekCommentsNot Currently0 (1 standard drink = 0.6 oz pure alcohol)caffeine:sodaPHQ-2AnswerDate RecordedPatient Health Questionnaire-2 Wkkuy3614CommentsUnknownSex and Gender InformationValueDate RecordedSex Assigned at UvvpwXfofzq59/21/2024 9:22 AM ESTLegal SexFemale 09/15/2022 8:35 PM EDTGender JatoufhgIagpbr10/21/2024 9:22 AM ESTSexual PbdmfvbrkzlMtkkcze17/21/2024 9:22 AM ESTdocumented as of this encounter Functional Status * Over the past 2 weeks, how often have you been bothered by any of the following problems?QuestionAnswerDate of AssessmentAuthorLittle interest or pleasure in doing thingsNot at all12/22/2023 10:29 AM Jazz Chávez MAFeeling down, depressed, or hopelessSeveral days12/22/2023 10:29 AM BENJAMINT Jazz Coombs MAPatient Health Questionnaire-2 Wfltg121 10:29 AM Jazz Chávez MA * QuestionAnswerDate [...] 10:29 AM Jazz Chávez MAPatient Health Questionnaire-9 Kdalq373 10:29 AM Jazz Chávez MA * How [...] happy most of the time?Yes12/22/2023 10:36 AM EDT Jazz Coombs MADo you often feel helpless?No12/22/2023 [...] as of this encounter Procedures Procedure NamePriorityDate/TimeAssociated DiagnosisCommentsCCF SURGICAL SZIUONDSYMichpyw97/01/2024 8:59 AM EST WYHVOHNSYMV86/01/2024 8:48 AM EST documented in this encounter Results * [facility] SURGICAL PATHOLOGY (06/18/2023 8:59 AM EST)ComponentValueRef RangeTest MethodAnalysis TimePerformed AtPathologist SignatureCCF CASE REPORTCCFComment: Surgical Pathology Report ? Case: [id number] ? Authorizing Provider: ??Chris Jones, ?Collected: ? 06/18/2023 08:59 AM ? Ordering Location: ? Procedures ? Received: ?06/18/2023 09:31 AM ? Pathologist: ? Thi Delvalle MD, PhD ? Specimens: ?? A) - CECUM POLYP ? B) - ASCENDING COLON POLYP ? C) - TRANSVERSE COLON POLYP ? D) - SIGMOID COLON POLYP ? E) - RECTAL BIOPSY ? [facility] FINAL DIAGNOSISCCFComment: A. Colon, cecum, polyp, biopsy: - Features suggestive of [...] giant cell reaction. - Deeper level examined. [facility] GROSS DESCRIPTIONA. CECUM POLYPCCFComment: Received in formalin is one piece of [...] 2023 3:40 PM Gross examination performed at [facility], [address] [place] [address] CC FINAL PERFORMING LABCCFComment: Diagnostic interpretation performed at [facility], [address] [place] [address] ?? CLIA# [id number] Aircraft Engine Assembler: José Miguel White M.D. Specimen (Source)Anatomical Location / LateralityCollection Method / Volume Collection TimeReceived Time06/18/2023 8:59 AM EST06/18/2023 12:03 PM EST Narrative CLINISYNC - 06/22/2023 12:50 PM EST Specimen Type: TISSUE SPECIMEN Ordering Facility: [facility] ?Address: [address] [place] [address] Original Ordering Provider: CHRIS JONES Authorizing ProviderResult TypeResult StatusGeneric External Data Provider CLINISYNCFinal ResultPerforming OrganizationAddressCity/State/ZIP CodePhone Number CLINISY[address] [place] [address] * COLONOSCOPY (06/18/2023 8:48 AM EST)Anatomical RegionLateralityModalityOther Specimen (Source)Anatomical Location / LateralityCollection Method / Volume Collection TimeReceived Time06/18/2023 8:48 AM EST Narrative 06/18/2023 9:19 AM EST [facility] Gastrointestinal Endoscopy Patient Name: Roz Coats Procedure Date: 06/18/2023 8:48 AM Date of : 1955 Admit Type: Outpatient Age: 67 Room: ENDO 02 Gender: Female Note Status: Finalized Attending MD: Chris Jones DO, [id number] Procedure: ? Colonoscopy Indications: ? High risk colon cancer surveillance: Personal ? history of colonic polyps Providers: ? Chris Jones DO Patient Profile: ? This is a 67 year old female. Refer to note in ? patient chart for documentation of history and ? physical. Last Colonoscopy: within the past year. Referring Physician: ?? Chris Jones DO (Referring MD) Medicines: ? See the Anesthesia note for documentation of the ? administered medications Complications: ? No immediate complications. Requesting Provider: ?? Procedure: ? Pre-Anesthesia Assessment: ? - Prior to the procedure, a History and Physical ? was performed, and patient medications and ? allergies were reviewed. The patient's tolerance of ? previous anesthesia was also reviewed. The risks ? and benefits of the procedure and the sedation ? options and risks were discussed with the patient. ? All questions were answered, and informed consent ? was obtained. Prior Anticoagulants: The patient has ? taken no anticoagulant or antiplatelet agents. ASA ? Grade Assessment: III - A patient with severe ? systemic disease. After reviewing the risks and ? benefits, the patient was deemed in satisfactory ? condition to undergo the procedure. ? After I obtained informed consent, the scope was ? passed under direct vision. Throughout the ? procedure, the patient's blood pressure, pulse, and ? oxygen saturations were monitored continuously. The ? 9219 Adult scope was introduced through the anus ? and advanced to the cecum, identified by ? appendiceal orifice and ileocecal valve. The ? colonoscopy was performed without difficulty. The ? patient tolerated the procedure well. The quality ? of the bowel preparation was good. The ileocecal ? valve, appendiceal orifice, and rectum were ? photographed. Scope Withdrawal Time: 0 hours 16 minutes 46 seconds Moderate Sedation: ? MAC anesthesia was administered by the anesthesia team. Total Procedure Duration: 0 hours 21 minutes 36 seconds Findings: ? Six sessile polyps were found in the rectum, sigmoid colon, ? transverse colon, ascending colon and cecum. The polyps were 3 to 5 ? mm in size. These polyps were removed with a jumbo cold forceps. ? Resection and retrieval were complete. Estimated blood loss was ? minimal. ? Multiple large-mouthed, medium-mouthed and small-mouthed diverticula ? were found in the left colon. There was no evidence of diverticular ? bleeding. ? Non-bleeding internal hemorrhoids were found during retroflexion. The ? hemorrhoids were small. ? The exam was otherwise without abnormality. Impression: ?- Six 3 to 5 mm polyps in the rectum, in the ? sigmoid colon, in the transverse colon, in the ? ascending colon and in the cecum, removed with a ? jumbo cold forceps. Resected and retrieved. ? - Moderate diverticulosis in the left colon. There ? was no evidence of diverticular bleeding. ? - Non-bleeding internal hemorrhoids. ? - The examination was otherwise normal. Recommendation: ?- Patient has a contact number available for ? emergencies. The signs and symptoms of potential ? delayed complications were discussed with the ? patient. Return to normal activities tomorrow. ? Written discharge instructions were provided to the ? patient. ? - Resume previous diet. ? - Continue present medications. ? - Await pathology results. ? - Repeat colonoscopy in 3 years for surveillance. ? - Return to referring physician. Procedure Code(s): ? --- Professional --- ? 86169, Colonoscopy, flexible; with biopsy, single ? or multiple Diagnosis Code(s): ? --- Professional --- ? Z12.11, Encounter for screening for malignant ? neoplasm of colon ? Z86.010, Personal history of colonic polyps ? D12.8, Benign neoplasm of rectum ? D12.5, Benign neoplasm of sigmoid colon ? D12.3, Benign neoplasm of transverse colon (hepatic ? flexure or splenic flexure) ? D12.2, Benign neoplasm of ascending colon ? D12.0, Benign neoplasm of cecum ? K64.8, Other hemorrhoids ? K57.30, Diverticulosis of large intestine without ? perforation or abscess without bleeding CPT copyright 202 [employer]. All rights reserved. The codes documented in this report are preliminary and upon mft review may be revised to meet current compliance requirements. Attending Participation: ? I personally performed the entire procedure. Scope In: 8:53:53 AM Scope Out: 9:15:29 AM DO Chris Hurd DO 06/18/2023 9:19:27 AM This report has been signed electronically by Chris Jones DO Number of Addenda: 0 Note Initiated On: 06/18/2023 8:48 AM Estimated Blood Loss: ? Estimated blood loss was minimal. Procedure Note Radiology, Radiologist, - 06/18/2023 [facility] Gastrointestinal Endoscopy Patient Name: Roz Coats Procedure Date: 06/18/2023 8:48 AM Date of : 1955 Admit Type: Outpatient Age: 67 Room: [place] [address] Gender: Female Note Status: Finalized Attending MD: Chris Jones DO [id number] Procedure: Colonoscopy Indications: High risk colon cancer surveillance: Personal history of colonic polyps Providers: Chris Jones DO Patient Profile: This is a 67 year old female. Refer to note in patient chart for documentation of history and physical. Last Colonoscopy: within the past year. Referring Physician: Chris Jones DO (Referring MD) Medicines: See the [...] referring physician. Procedure Code(s): --- Professional --- 48120, Colonoscopy, flexible; with biopsy, single or multiple [...] in this report are preliminary and upon mft review may be revised to meet current compliance requirements. Attending Participation: I personally performed the entire procedure. Scope In: 8:53:53 AM Scope Out: 9:15:29 AM DO Chris Hurd DO 06/18/2023 9:19:27 AM This report has been signed electronically by Chris Jones DO Number of Addenda: 0 Note Initiated On: 06/18/2023 8:48 AM Estimated Blood Loss: Estimated blood loss was minimal. Authorizing ProviderResult TypeResult StatusGeneric External Data Provider CLINISYNC IMAGINGFinal Result documented in this encounter Visit Diagnoses Not on filedocumented in this encounter Care Teams Team MemberRelationshipSpecialtyStart DateEnd Date Quinn Antunez MD PCP - GeneralFamily Medicine12/08//02/08 Quinn Antunez MD [address] [place] [address] PCP - [facility]05/18/2311 Quinn Antunez MD [address] [place] [address] [facility] - [facility] Quinn Antunez MD [address] [place] [address] PCP - Jose C PARKER Kaila Goldstein NP [address] [place] [address] PCP - Jose C MA12/16/24 Kaila Goldstein NP Referring PhysicianNurse Practitioner12/08/2309 Kaila Goldstein NP [address] [place] [address] Nurse PractitionerFawesson memorial hospital Medicine08/25/2409documented as of this encounter
--- OUTSIDE RECORDS SUMMARY | 2025-03-22 11:22 | XMS_ITS | Clinical Summary ---
Author Organization [facility] Address [address] [place] [address] Care Team Providers Care Wet Plant Operator Name Role Phone Quinn Antunez MD Primary Care Provider [phone] Kaila Goldsteni NP Unavailable [phone] Allergies Active AllergyReactionsCriticalityNoted DateCommentsFexofenadine HclHives 05/06/20225270ZhakehasbnruojlnculLzgio86/18/1128Zgimjprazivabg84/15/2023Thiazide- Type BdkwxuzdcJoviv53/18/2023 Medications MedicationSigDispense QuantityRefillsLast FilledStart DateEnd DateStatus Alcohol Swabs pads Active apixaban (Eliquis) 5 MG tablet Take 5 mg by mouth in the morning and 5 mg before bedtime.Active Multiple Vitamins-Minerals (CENTRUM SILVER 50+MEN PO) Take by mouthActive calcium carbonate (Calcium 600) 1500 (600 Ca) MG tablet Take 1,500 mg by mouth in the morning and 1,500 mg in the evening. Take with meals.Active Blood Glucose Monitoring Suppl (Blood Glucose Monitor System) w/Device kit Indications:Type 2 diabetes mellitus without complication, without long-term current use of insulin (HCC)1 kit 3 (three) times a day as needed (3 times daily prn) 1 kit 05/22/2023ctive spironolactone (Aldactone) 25 MG tablet Take 25 mg by mouth in the morning.Active carvedilol (Coreg) 6.25 MG tablet Take 6.25 mg by mouth in the morning and 6.25 mg in the evening. Take with meals.11/17/2023ctive atorvastatin (Lipitor) 10 MG tablet Indications:Mixed hyperlipidemiaTake 1 tablet (10 mg) by mouth in the evening 90 tablet 4Active Additional Information Patient not taking.Reported on 11/02/2024 glucose blood ([employer] Ultra) test strip Indications:Type 2 diabetes mellitus without complication, without long-term current use of insulin (HCC)Use once a day 100 strip 4Active rosuvastatin (Crestor) 5 MG tablet Take 5 mg by mouth Daily5Active Semaglutide,0.25 or 0.5MG/DOS, (Ozempic, 0.25 or 0.5 MG/DOSE,) 2 MG/3ML solution pen-injector Indications:Atrial fibrillation, unspecified type ([facility]),Primary hypertension, Type 2 diabetes mellitus without complication, without long-term current use of insulin ([facility]),Mixed hyperlipidemia,Morbid (severe) obesity due to excess calories ([facility])Inject 0.25 mg under the skin every 7 (seven) days Take 0.25mg weekly for 4 weeks, then increase to0.5mg weekly 3 mL 5Active losartan (Cozaar) 50 MG tablet Indications:Primary hypertensionTake 1 tablet (50 mg) by mouth Daily 90 tablet 5Active allopurinol (Zyloprim) 100 MG tablet Indications:Gout, unspecifiedTake 1 tablet (100 mg) by mouth Daily 90 tablet 5Active metFORMIN (Glucophage) 500 MG tablet Indications:Type 2 diabetes mellitus without complication, without long-term current use of insulin ([facility])Take 1 tablet (500 mg) by mouth in the morning. Take with meals. 90 tablet 5Active levothyroxine (Synthroid, Levoxyl) 100 MCG tablet Indications:Hypothyroidism, unspecified typeTake 1 tablet (100 mcg) by mouth in the morning. Take before meals. 90 tablet 5Active Active Problems ProblemNoted DateDiagnosed DateDog bite12/19/2024Encounter for screening mammogram for malignant neoplasm of ltvlfy125Acute cystitis without wlxzxqfoj10/13/2024ody mass index (BMI) 45.0-49.9, adult12/22/2023Encounter for subsequent annual wellness visit (AWV) in Medicare cqxhkdp1912/22/2023 Assessment & Plan (12/22/2023 11:17 AM EDT): I have reviewed Ht/Wt/BMI, I have reviewed recommended vaccines for patient's age, as well as all recommended screenings I have reviewed available care everywhere notes as well. I have recommended eating a balanced diet,as well as activity as chronic conditions allow It is recommended that the patient have a yearly eye exam, as well as twice a year dental exams Fu in this office for wellness on a yearly basis Asymptomatic microscopic ssazixguq44/03/2024 Assessment & Plan (11/02/2024 6:11 AM EDT): Check urine sample yearly and prn changes in sxs Assessment & Plan (12/22/2023 11:16 AM EDT): Recheck urine Assessment & Plan (08/26/2023 9:13 AM EDT): Repeat in 1 month Morbid (severe) obesity due to excess qotjebwh02/01/2024 Assessment & Plan (11/02/2024 6:11 AM EDT): Discussed with patient their BMI (actual, verses recommended). We have also discussed lifestyle modifications: attempts to perform physical activity as chronic conditions allow, also to monitor dietary intake: increasing protein/fruits/veggies and lowering carb intake (unless contraindicated). Limit sodas, juices, and sugary drinks. Yevovjvneycujl73/01/2024 Overview (08/26/2023): Last Assessment & Plan: Continue statin- lipitor 10 mg daily Assessment & Plan (11/02/2024 6:13 AM EDT): On statin therapy Check labs yearly and prn dose changes Primary osteoarthritis, right ankle and foot06/12/20239762Ikfqiovoka04/15/2023trial iyghqpummvya77/15/2023 Assessment & Plan (11/02/2024 6:10 AM EDT): NSR, continue current meds Follows with [facility] every 6 months Assessment & Plan (12/22/2023 11:15 AM EDT): NSR, continue current meds Follows with [facility] every 6 months Assessment & Plan (05/04/2023 8:28 AM EST): NSR, continue current meds Follows with [facility] every 6 months Gout05/01/2023 Assessment & Plan (11/02/2024 6:13 AM EDT): Current med: allopurinol Check labs yearly, and prn dose change or changes in sxs History of tobacco abuse05/01/2023 Assessment & Plan (11/02/2024 10:56 AM EDT): Patient meets requirements for low dose CT [...] also been counseled on the importance of sm oking cessation. Birlgekexyxc09/15/2023 Assessment & Plan (11/02/2024 6:10 AM EDT): Please check blood pressure daily and record DASH diet Limit caffeine Take medication as directed Contact office if chest pain, pressure, dizziness, shortness of breath, swelling legs Recommend slow position changes Current meds: carvedilol, losartan Assessment & Plan (12/22/2023 11:16 AM EDT): Stable on current meds Continue PAP,recommend weight loss Assessment & Plan (08/26/2023 9:12 AM EDT): Stable on current meds Continue PAP, continue with weight loss Assessment & Plan (05/04/2023 8:29 AM EST): Stable on current meds Continue PAP, recommend weight loss Xbpejkskipcees77/15/2023 Assessment & Plan (11/02/2024 6:12 AM EDT): Current meds: levothyroxine Check labs yearly, and prn dose changes or changes in sxs Assessment & Plan (12/22/2023 11:16 AM EDT): Continue current meds Pain, foot, right, nfoiyrn8305/01/2023anic axqnonk7205/01/2023Sleep apnea, qysfttkkxoq60/15/2023 Assessment & Plan (11/02/2024 10:43 AM EDT): You have a diagnosis of obstructive sleep [...] your machine and tubing/filters etc: [facility] Assessment & Plan (12/22/2023 11:15 AM EDT): Is doing well with current therapies no changes Assessment & Plan (08/26/2023 9:12 AM EDT): Is doing well with current therapies no changes Assessment & Plan (05/04/2023 8:28 AM EST): Is doing well with current therapies no changes Type 2 diabetes jxwkfaiw90/15/2023 Assessment & Plan (11/02/2024 10:50 AM EDT): Check blood sugars daily, notify if <70 [...] arb A1c: 6.3% 10/17/24 Will add ozempic Assessment & Plan (12/22/2023 11:16 AM EDT): Check blood sugars daily, notify if <70 [...] diet low in carbohydrates, and simple sugars. Recommend getting Pneumovax 23 vaccine as well Assessment & Plan (08/26/2023 9:15 AM EDT): Check blood sugars daily, notify if <70 [...] diet low in carbohydrates, and simple sugars. Recommend getting Pneumovax 23 vaccine as well Assessment & Plan (05/04/2023 8:29 AM EST): Is UTD with eye exam Check blood [...] diet low in carbohydrates, and simple sugars. Abnormal hudvdnrks51/15/2023Multiple lung ftyegie3005/01/2023 Assessment & Plan (11/02/2024 6:09 AM EDT): Check yearly CT chest Joint pain05/01/2023 Resolved Problems ProblemNoted DateDiagnosed DateResolved DateAcute bacterial conjunctivitis /Obesity, xrcbjo78/ Assessment & Plan (08/26/2023 9:13 AM EDT): continue to focus on diet modification and weight loss Assessment & Plan (05/04/2023 8:30 AM EST): Needs to focus on diet modification and weight loss Encounters DateTypeDepartmentCare EutpUwviyodhsgb99/23/2025Refill [facility] [address] [place] [address] Kaila Goldstein NP Gout, unspecified; Type 2 diabetes mellitus without complication, without long-term current use of insulin (HCC); Hypothyroidism, unspecified typefrom Last 3 Months Immunizations ImmunizationAdministration DatesNext DueZoster, Vvvuxauvfca41/26/2023,05/21/2022 Family History Medical HistoryRelationNameCommentsDiabetesFatherHyperlipidemiaFather HypertensionFatherLung cancerFatherLung diseaseFatherstomach troubleFatherCancer MotherHyperlipidemiaMotherMental illnessMotherBreast cancerSisterCancerSister RelationNameStatusCommentsFatherDeceasedMotherAliveSister Social History Tobacco UseTypesPacks/DayYears UsedDateSmoking Tobacco: FormerCigarettes Tobacco Cessation:Counseling Given: Not Answered Comments:Last smoked 10-15 years pt quit 2007 Alcohol UseStandard Drinks/WeekCommentsNot Currently0 (1 standard drink = 0.6 oz pure alcohol)caffeine:sodaPHQ-2AnswerDate RecordedPatient Health Questionnaire-2 Ziair051/06/2024CommentsUnknownSex and Gender InformationValueDate RecordedSex Assigned at JovvzZnkgjn85/21/2024 9:22 AM ESTLegal SexFemale 09/15/2022 8:35 PM EDTGender KelhteduVyjzzf51/21/2024 9:22 AM ESTSexual CezgavsoeveRcxhghz55/21/2024 9:22 AM EST Last Filed Vital Signs Vital SignReadingTime TakenCommentsBlood Mosnbiqa036/9211/02/2024 9:55 AM EDT Hkgzi111211/02/2024 9:55 AM WGVPgnferhbgui26.1 ??C (98.8 ??F)11/02/2024 9:55 AM EDTRespiratory Owjz065811/02/2024 9:55 AM EDTOxygen Xwjcabrbaq39%11/02/2024 9:55 AM EDTInhaled Oxygen Concentration--Psmmsw969 kg (330 lb 6.4 oz)11/02/2024 9:55 AM QQATsjzcs126.5 cm (5' 7.5 )12/22/2023 10:15 AM EDTBody Mass Index50.98 12/22/2023 10:15 AM EDT Plan of Treatment Health MaintenanceDue DateLast DoneCommentsCT Kklsdhzpugcn43/15/1957FIT-DNA 1955FIT1955FOBT1955 2217Jedvslhlahtez94/15/1957Pneumococcal Vaccine: 65+ Years (1 of 2 - PCV)09/30/1975Diabetes: Retinopathy Screening /05/2022Medicare Annual Wellness (AWV)508/10/2023, 12/22/2023, 3COVID-19 Vaccine ( season)501/, 11/27/2020, 1Diabetes: Hemoglobin A1C/06/2024, 08/19/2023, 03/29/2020Diabetes: Urine Protein Riwyqhntm33/02/988487/06/2024, 08/19/2023, 09/15/2022, Additional history aiiqqzMefawhquq90/10/405722/02/2025, 03/18/2023 Colorectal Cancer Mcswaewwh63/01/0815Hiorkyppohc87/01/203402/05/2023, 06/18/2023, 06/18/2023, Additional history existsInfluenza VaccineDiscontinued Procedures Procedure NamePriorityDate/TimeAssociated DiagnosisCommentsMM TOMOSYNTHESIS SCREENING BI11/24/2024 1:46 PM EDT YAYQWYZXXBO44/01/2024 8:48 AM EST from Last 3 Months or Most Recently Relevant to Health Maintenance Results * MM TOMOSYNTHESIS SCREENING BI (11/24/2024 1:46 PM EDT)Anatomical Region LateralityModalityOtherSpecimen (Source)Anatomical Location / Laterality Collection Method / VolumeCollection TimeReceived Time11/24/2024 1:46 PM EDT Narrative 11/24/2024 1:47 PM EDT [facility] [place] ?[address] ? [place] [address] ? Mammography Report ? Signed ? Patient: HORTENSIA BATES ?MR#: [id number] ?? : 1955 ?Acct:[id number] ?? Age/Sex: 69 / F ?ADM Date: 11/24/24 ?? Loc: MAMMO ? Attending Dr: Kaila Goldstein RETAIL LOAN ORIGINATOR ASSISTANT ? Ordering Physician: Angelita,Kaila RETAIL LOAN ORIGINATOR ASSISTANT ?Results: ? Date of Service: 11/24/24 ?Follow Up: ? Procedure(s): MM tomosynthesis screening BI ?? Accession Number(s): [id number] ? cc: Kaila Goldstein RETAIL LOAN ORIGINATOR ASSISTANT ? Patient Name: ? HORTENSIA BATES ? MR#: [id number] ? : 1955 ? Exam Date: 11/24/2024 ?? Ordering Doctor: NYDIA GOLDSTEIN CNP ? RADIOLOGY REPORT ? PROCEDURE: ? MM TOMOSYNTHESIS SCREENING BI ? COMPARISON: ? MM DIAGNOSTIC MAMMO UNILAT RT, 04/07/2023. ??MM TOMOSYNTHESIS ?? SCREENING BI, 03/18/2023. ? INDICATIONS: ? screening for malignant neoplasm of breast ? Calculator Name ? NCI Breast Cancer Risk Assessment Tool ?? 5 Year Breast Cancer Risk ? 1.50% ?? Lifetime Breast Cancer Risk ? 5.00% ?? Personal Breast Cancer ?No ?? Personal Ovarian Cancer ? No ?? Treatments ? None ?? Family Cancers ? None ? LOCATION: ? [facility] [place] ? BREAST COMPOSITION: ? There are scattered areas of fibroglandular density. ? FINDINGS: ? RIGHT BREAST: ??No significant suspicious finding. ? LEFT BREAST: ??No significant suspicious finding. ? DIAGNOSTIC CATEGORY 1--NEGATIVE. ? RECOMMENDATIONS: ? ROUTINE MAMMOGRAM AND CLINICAL EVALUATION IN 12 MONTHS. ? PLEASE NOTE: ??A NORMAL MAMMOGRAM DOES NOT EXCLUDE THE POSSIBILITY OF BREAST ?? CANCER. ??A CLINICALLY SUSPICIOUS PALPABLE LUMP SHOULD BE BIOPSIED. ? Dictated by: Aaron Sue DO on 11/24/2024 at 13:36 ? Approved by: Aaron Sue, DO on 11/24/2024 at 13:45 ? Dictated By: ?Aaron Sue D.O. ? Signed By: ?11/24/24 1347 ? DD/ 1346 ? TD/TT: ? Sap Business Analyst: Procedure Note Radiology, Radiologist, MD - 11/24/[address] [address] Mammography Report Signed Patient: HORTENSIA BATES JMR#: [id number] : 1955cct:[id number] Age/Sex: 69 / FADM Date: 11/24/24 Loc: MAMMO Attending Dr: Kaila Goldstein NP Ordering Physician: Kaila Goldstein NPResults: Date of Service: 11/24/24Follow Up: Procedure(s): MM tomosynthesis screening BI Accession Number(s): [id number] cc: Kaila Goldstein NP Patient Name: HORTENSIA BATES MR#: [id number] : 1955 Exam Date: 11/24/2024 Ordering Doctor: NYDIA GOLDSTEIN INSPECTOR AND CLIPPER RADIOLOGY REPORT PROCEDURE: MM TOMOSYNTHESIS SCREENING BI COMPARISON: MM DIAGNOSTIC MAMMO UNILAT RT, 04/07/2023. MMTOMOSYNTHESIS SCREENING BI, 03/18/2023. INDICATIONS: screening for malignant neoplasm of breast Calculator Name NCI Breast Cancer Risk Assessment Tool 5 Year Breast Cancer Risk 1.50% Lifetime Breast Cancer Risk 5.00% Personal Breast Cancer No Personal Ovarian Cancer No Treatments None Family Cancers None LOCATION: [facility] [place] BREAST COMPOSITION: There are scattered areas of fibroglandulardensity. FINDINGS: RIGHT BREAST: No significant suspicious finding. LEFT BREAST: No significant suspicious finding. DIAGNOSTIC CATEGORY 1--NEGATIVE. RECOMMENDATIONS: ROUTINE MAMMOGRAM AND CLINICAL EVALUATION IN 12 MONTHS. PLEASE NOTE: A NORMAL MAMMOGRAM DOES NOT EXCLUDE THE POSSIBILITY OFBREAST CANCER. A CLINICALLY SUSPICIOUS PALPABLE LUMP SHOULD BE BIOPSIED. Dictated by: Aaron Sue DO on 11/24/2024 at 13:36 Approved by: Aaron Sue DO on 11/24/2024 at 13:45 Dictated By: Aaron Sue D.O. Signed By:11/24/24 1347 DD/ 134 TD/TT: Sap Business Analyst: Authorizing ProviderResult TypeResult StatusLisa Angelita NPCLINISYNC IMAGING Final Result * COLONOSCOPY (06/18/2023 8:48 AM EST)Anatomical RegionLateralityModalityOther Specimen (Source)Anatomical Location / LateralityCollection Method / Volume Collection TimeReceived Time02/05/2023 8:48 AM EST Narrative 06/18/2023 9:19 AM [facility] Gastrointestinal Endoscopy Patient Name: Hortensia Bates Procedure Date: 06/18/2023 8:48 AM Date of : 1955 Admit Type: Outpatient Age: 67 Room: [place] [address] Gender: Female Note Status: Finalized Attending MD: Harleen Macdonald DO, [id number] Procedure: ? Colonoscopy Indications: ? High risk colon cancer surveillance: Personal ? history of colonic polyps Providers: ? Harleen Macdonald DO Patient Profile: ? This is a 67 year old female. Refer to note in ? patient chart for documentation of history and ? physical. Last Colonoscopy: within the past year. Referring Physician: ?? Harleen Macdonald DO (Referring MD) Medicines: ? See the [...] Procedure Code(s): ? --- Professional --- ? 01330, Colonoscopy, flexible; with biopsy, single ? or [...] or abscess without bleeding CPT copyright 202 [employer] [place] [employer]. All rights reserved. The codes documented in this report are preliminary and upon battery assembler plastic review may be revised to meet current compliance requirements. Attending Participation: ? I personally performed the entire procedure. Scope In: 8:53:53 AM Scope Out: 9:15:[address] Harleen Macdonald, DO Harleen Macdonald DO 06/18/2023 9:19:27 AM This report has been signed electronically by Harleen Macdonald DO Number of Addenda: 0 Note Initiated On: 06/18/2023 8:48 AM Estimated Blood Loss: ? Estimated blood loss was minimal. Procedure Note Radiology, Radiologist, - 06/18/2023 [facility] Gastrointestinal Endoscopy Patient Name: Hortensia Bates Procedure Date: 06/18/2023 8:48 AM Date of : 1955 Admit Type: Outpatient Age: 67 Room: [place] [address] Gender: Female Note Status: Finalized Attending MD: Harleen Macdonald DO, [id number] Procedure: Colonoscopy Indications: High risk colon cancer [...] referring physician. Procedure Code(s): --- Professional --- 72078, Colonoscopy, flexible; with biopsy, single or multiple [...] or abscess without bleeding CPT copyright 2020 [employer] [employer]. All rights reserved. The codes documented in this report are preliminary and upon battery assembler plastic review may be revised to meet current [...] StatusGeneric External Data Provider CLINISYNC IMAGINGFinal Result from Last 3 Months or Most Recently Relevant to Health Maintenance Insurance Care Teams Team MemberRelationshipSpecialtyStart DateEnd Date Quinn Antunez MD [address] [place] [address] PCP - Generalmily Medicine08/26/23 Kaila Goldstein NP [address] [place] [address] PCP - Jose C PARKER12/16/24
--- OUTSIDE RECORDS SUMMARY | 2025-03-22 11:22 | XMS_ITS | Encounter Summary ---
Author Organization [facility] Address [address] [place] [address] Care Team Providers Care Chief Green Officer Name Role Phone Quinn Antunez MD Primary Care Provider [phone] AicKaila taylor SUPERVISOR COMPONENT ASSEMBLER Unavailable [phone] Quinn Antunez MD Unavailable Quinn Antunez MD Primary Care Provider [phone] AicKaila taylor SUPERVISOR COMPONENT ASSEMBLER Unavailable [phone] Quinn Antunez MD Unavailable AichholKaila prater SUPERVISOR COMPONENT ASSEMBLER Unavailable [phone] Encounter Details DateTypeDepartmentCare Team (Latest Contact Info)Dzehptdeukm28/06/2024Clinisync Result Encounter [facility] Unsolicited Provider, Generic External Data Social History Tobacco UseTypesPacks/DayYears UsedDateSmoking Tobacco: FormerCigarettes Comments:Last smoked 10-15 y ears Alcohol UseStandard Drinks/WeekCommentsNot Currently0 (1 standard drink = 0.6 oz pure alcohol)caffeine:sodaPHQ-2AnswerDate RecordedPatient Health Questionnaire-2 [id number] and Gender InformationValueDate RecordedSex Assigned at XwzilDoiqnt72/21/2024 9:22 AM ESTLegal SexFemale 09/15/2022 8:35 PM EDTGender UdweiycyBnjvww08/21/2024 9:22 AM ESTSexual AuzodtgctwoBcmhcev30/21/2024 9:22 AM ESTdocumented as of this encounter Functional Status * Over the past 2 weeks, how often have you been bothered by any of the following problems?QuestionAnswerDate of AssessmentAuthorLittle interest or pleasure in doing thingsNot at all12/22/2023 10:29 AM Jazz Chávez MAFeeling down, depressed, or hopelessSeveral days12/22/2023 10:29 AM BENJAMINT Jazz Coombs MAPatient Health Questionnaire-2 Razkb286 10:29 AM Jazz Chávez MA * QuestionAnswerDate [...] 10:29 AM Jazz Chávez MAPatient Health Questionnaire-9 Bcloq326 10:29 AM Jazz Chávez MA * How [...] you often get bored?No 12/22/2023 10:36 AM Jzaz Chávez MAAre you in good spirits most [...] as of this encounter Procedures Procedure NamePriorityDate/TimeAssociated DiagnosisCommentsCA ECHO DOPPLER MEYELOSS37/06/2024 4:22 PM EST documented in this encounter Results * CA ECHO DOPPLER COMPLETE (06/23/2023 4:22 PM EST)Anatomical RegionLaterality ModalityOtherSpecimen (Source)Anatomical Location / LateralityCollection Method / VolumeCollection TimeReceived Time06/23/2023 4:22 PM EST Narrative 06/23/2023 4:23 PM EST [facility] ?[address] ? [place] [address] ? Cardiology Report ? Signed ? Patient: Hortensia Bates J ?MR#: [id number] ?? : 1955 ?Acct:[id number] ?? Age/Sex: 67 / F ?ADM Date: 06/23/23 ?? Loc: CARD ? Attending Dr: UMAIR ENRIQUE ? Ordering Physician: UMAIR ENRIQUE ?? Date of Service: 06/23/23 ?? Procedure(s): CA echo doppler complete ?? Accession Number(s): [id number] ? cc: Kaila Goldstein SUPERVISOR COMPONENT ASSEMBLER; UMAIR ENRIQUE ? Patient Name: ? HORTENSIA BATES ? MR#: [id number] ? : 1955 ? Exam Date: 06/23/2023 ?? Ordering Doctor: UMAIR ENRIQUE ? ECHOCARDIOGRAM REPORT ? PROCEDURE: ? CA ECHO DOPPLER COMPLETE ? INDICATIONS: ? Atrial fibrillation, hypertension, edema, diabetes ? COMPARISON: ? None. ? DESCRIPTION: ? COMPLETE ECHOCARDIOGRAM Real-time transthoracic ?? echocardiography with 2D, M-mode, spectral and color flow Doppler performed. ? QUALITY: ? Technical quality was good. ??68 , 313#, BSA 2.47 m2 ?? LEFT VENTRICLE: ? Normal chamber size. Normal left ventricular wall ?? thickness. Normal systolic function. ? LV EF: Normal left ventricular ejection fraction, (>55%). DIASTOLIC: ? Normal diastolic function. ?? ATRIAL SEPTUM: ? Visually appears intact. ?? LEFT ATRIUM: ? Moderate dilatation. ?? RIGHT ATRIUM: ? Normal chamber size. ?? RIGHT VENTRICLE: ? Normal chamber size. Normal right ventricular systolic ?? function. ? TRICUSPID VALVE: ? Normal mobility and thickness. No stenosis with trivial ?? regurgitation. Unable to assess right sided pressures due to lack of ?? measurable tricuspid regurgitation. ? MITRAL VALVE: ? Normal mobility and thickness. ?Mild mitral annular ?? calcification. Trivial mitral regurgitation. ? AORTIC VALVE: ? Normal trileaflet appearance. No visible sclerosis. ??Normal ?? leaflet mobility. ??No evidence of aortic valve stenosis. No aortic ?? regurgitation. ? AORTIC ROOT: ? Normal diameter and appearance. ? PULMONIC VALVE: ? Not well visualized. ??No regurgitation. ? PERICARDIUM: ? No evidence of pericardial effusion. ? IVC: ? Collapses with inspirations. IVC is normal in size. ? PLEURA: ? CONCLUSION: ? 1. Normal left ventricular size and systolic function. LVEF is 60-65%. ?? 2. Normal right ventricular size and systolic function. ?? 3. No significant valvular dysfunction. ?? 4. Moderate left atrial dilatation. ?? 5. Unable to assess right-sided pressures due to lack of measurable tricuspid ?? regurgitation. ? 6. The patient appears to be in sinus rhythm during the exam. ? Adult Echocardiography Procedure Report ?? Left Ventricle ?? LVEDD (3.7 - 5.6 cm): ? 4.29 cm ?? LVESD (2.2 - 4.0 cm): ? 3.17 cm ?? LVIVS thickness (0.6 - 1.2 cm): ? 1.04 cm ?? LVPW thickness (0.5 - 1.0 cm): ? 0.91 cm ?? e': ? 0.12 m/s ?? E - e': ? 4.71 ?? LVOT Max Gradient: ? 7.38 mm[Hg] ?? LVOT Area (cm2): ? 1.36 m/s ?? Peak Velocity (LVOT): ? 1.36 m/s ?? Mean Velocity (LVOT): ? 0.93 m/s ?? LVOT Diameter ? 2.27 cm ?? Left Atrium ?? LA Volume Index (2D A2C): ? 44.83 ml/m2 ?? Left Atrium Systolic Dimension: ? 3.98 cm ?? Mitral Valve ?? MV E to A Ratio: ? 0.72 ?? Mitral Valve A-Wave Peak Velocity: ? 0.77 m/s ?? Mitral Valve E-Wave Peak Velocity: ? 0.56 m/s ?? Right Ventricle ?? Aorta ?? AO Root Diam: ? 3.55 cm ?? Ascending Ao Diam: ? 3.54 cm ?? Aortic Valve ?? AoV Area (Peak Gordon): ? 3.13 cm2, 3.13 cm2 ?? AoV Area (VTI): ? 3.50 cm2, 3.50 cm2 ?? Peak Velocity(Antegrade Flow): ? 1.75 m/s ?? Peak Gradient(Antegrade Flow): ? 12.29 mm[Hg] ?? Mean Velocity(Antegrade Flow): ? 1.13 m/s ?? Mean Gradient(Antegrade Flow): ? 5.84 mm[Hg] ?? Velocity Time Integral: ? 35.19 cm ?? Tricuspid Valve ?? Pulmonic Valve ?? Mean Gradient: ? 2.49 mm[Hg] ?? Mean Velocity: ? 0.75 m/s ?? Peak Velocity: ? 1.05 m/s, 1.13 m/s ?? Peak Gradient: ? 5.08 mm[Hg], 4.38 mm[Hg] ?? Right Atrium ?? Right Atrium Systolic Pressure: ? 52.17 ml, 52.17 ml ? Dictated by: Karol Abreu M.D. on 06/23/2023 at 16:18 ? Approved by: Karol Abreu M.D. on 06/23/2023 at 16:22 ? Dictated By: ?KAROL ABREU ? Signed By: ?06/23/23 1623 ? DD/ ? TD/TT: ? Buoy Tender: Procedure Note Radiology, Radiologist, - 06/23/2023 [place] [address] Cardiology Report Signed Patient: Hortensia Bates JMR#: [id number] : 7Acct:[id number] Age/Sex: 67 / FADM Date: 06/23/23 Loc: CARD Attending Dr: UMAIR ENRIQUE Ordering Physician: UMAIR ENRIQUE Date of Service: 06/23/23 Procedure(s): CA echo doppler complete Accession Number(s): [id number] cc: Kaila Goldstein NP; UMAIR ENRIQUE Patient Name: HORTENSIA BATES MR#: [id number] : 1955 Exam Date: 06/23/2023 Ordering Doctor: UMAIR ENRIQUE ECHOCARDIOGRAM REPORT PROCEDURE: CA ECHO DOPPLER COMPLETE INDICATIONS: Atrial fibrillation, hypertension, edema, diabetes COMPARISON: None. DESCRIPTION: COMPLETE ECHOCARDIOGRAM Real-time transthoracic echocardiography with 2D, M-mode, spectral and color flow Dopplerperformed. QUALITY: Technical quality was good. 68 , 313#, BSA 2.47 m2 LEFT VENTRICLE: Normal chamber size. Normal left ventricular wall thickness. Normal systolic function. LV EF: Normal left ventricular ejection fraction, (>55%). DIASTOLIC: Normal diastolic function. ATRIAL SEPTUM: Visually appears intact. LEFT ATRIUM: Moderate dilatation. RIGHT ATRIUM: Normal chamber size. RIGHT VENTRICLE: Normal chamber size. Normal right ventricularsystolic function. TRICUSPID VALVE: Normal mobility and thickness. No stenosis withtrivial regurgitation. Unable to assess right sided pressures due to lack of measurable tricuspid regurgitation. MITRAL VALVE: Normal mobility and thickness. Mild mitral annular calcification. Trivial mitral regurgitation. AORTIC VALVE: Normal trileaflet appearance. No visible sclerosis.Normal leaflet mobility. No evidence of aortic valve stenosis. No aortic regurgitation. AORTIC ROOT: Normal diameter and appearance. PULMONIC VALVE: Not well visualized. No regurgitation. PERICARDIUM: No evidence of pericardial effusion. IVC: Collapses with inspirations. IVC is normal in size. PLEURA: CONCLUSION: 1. Normal left ventricular size and systolic function. LVEF is 60-65%. 2. Normal right ventricular size and systolic function. 3. No significant valvular dysfunction. 4. Moderate left atrial dilatation. 5. Unable to assess right-sided pressures due to lack of measurabletricuspid regurgitation. 6. The patient appears to be in sinus rhythm during the exam. Adult Echocardiography Procedure Report Left Ventricle LVEDD (3.7 - 5.6 cm): 4.29 cm LVESD (2.2 - 4.0 cm): 3.17 cm LVIVS thickness (0.6 - 1.2 cm): 1.04 cm LVPW thickness (0.5 - 1.0 cm): 0.91 cm e': 0.12 m/s E - e': 4.71 LVOT Max Gradient: 7.38 mm[Hg] LVOT Area (cm2): 1.36 m/s Peak Velocity (LVOT): 1.36 m/s Mean Velocity (LVOT): 0.93 m/s LVOT Diameter 2.27 cm Left Atrium LA Volume Index (2D A2C): 44.83 ml/m2 Left Atrium Systolic Dimension: 3.98 cm Mitral Valve MV E to A Ratio: 0.72 Mitral Valve A-Wave Peak Velocity: 0.77 m/s Mitral Valve E-Wave Peak Velocity: 0.56 m/s Right Ventricle Aorta AO Root Diam: 3.55 cm Ascending Ao Diam: 3.54 cm Aortic Valve AoV Area (Peak Gordon): 3.13 cm2, 3.13 cm2 AoV Area (VTI): 3.50 cm2, 3.50 cm2 Peak Velocity(Antegrade Flow): 1.75 m/s Peak Gradient(Antegrade Flow): 12.29 mm[Hg] Mean Velocity(Antegrade Flow): 1.13 m/s Mean Gradient(Antegrade Flow): 5.84 mm[Hg] Velocity Time Integral: 35.19 cm Tricuspid Valve Pulmonic Valve Mean Gradient: 2.49 mm[Hg] Mean Velocity: 0.75 m/s Peak Velocity: 1.05 m/s, 1.13 m/s Peak Gradient: 5.08 mm[Hg], 4.38 mm[Hg] Right Atrium Right Atrium Systolic Pressure: 52.17 ml, 52.17 ml Dictated by: Karol Abreu M.D. on 06/23/2023 at 16:18 Approved by: Karol Arbeu M.D. on 06/23/2023 at 16:22 Dictated By: KAROL ABREU Signed By:06/23/23 1623 DD/ 1622 TD/TT: Buoy Tender: Authorizing ProviderResult TypeResult StatusGeneric External Data Provider CLINISYNC IMAGINGFinal Result documented in this encounter Visit Diagnoses Not on filedocumented in this encounter Care Teams Team MemberRelationshipSpecialtyStart DateEnd Date Quinn Antunez MD PCP - [facility] Medicine Quinn Antunez MD [address] [place] [phone] PCP - [facility]/ Quinn Antunez MD [address] [place] [phone] PCP - [facility]08/26/23 Quinn Antunez MD [address] [place] [phone] PCP - Jose C MA Kaila Goldstein NP [address] [place] [phone] PCP - Jose C [facility]12/16/24 Kaila Goldstein NP Referring PhysicianNurse [facility]12/08[facility]2309 Kaila Goldstein NP [address] [place] [phone] Nurse PractitionerFamily Medicine08/25/2409documented as of this encounter
--- OUTSIDE RECORDS SUMMARY | 2025-03-22 11:42 | XMS_ITS | CCD ---
Author Organization [facility] Care Team Providers Care Territory Development Manager Name Role Phone AICHREINAZ, KAILA Referring Unavailable AICHHOLZ, KAILA Primary Care Unavailable RI Procedure Practitioner Unavailab le ALASTAL, YASEEN Admitting Unavailable ALASTAL, YASEEN Attending Unavailable ALASTAL, YASEEN Surgeon Unavailable AICHHOLZ, KAILA Primary Care Unavailable AICHHOLZ, KAILA Referring Unavailable SULEIMAN SALAMANCA Admitting Unavailable SULEIMAN SALAMANCA Attending Unavailable SHANTHI, SARMED Admitting Unavailable SHANTHI, SARMED Attending Unavailable CHAY ARANGO Surgeon Unavailable AICHHOLZ, KAILA Primary Care Unavailable RI Procedure Practitioner Unavailab JUAN Souza Referring Unavailable SHANTHI, SARMED Surgeon Unavailable RI Procedure Practitioner Unavailab LULU Irizarry Referring Unavailable SHANTHI, SARMED Admitting Unavailable AICHHOLZ, KAILA Primary Care Unavailable MISAEL MCCOLLUM Attending Unavailable RI Procedure Practitioner Unavailab le LIZZETTESTISAC, YASEEN Surgeon Unavailable AICHHOLZ, AUTO SUSPENSION [employer] STEERING MECHANIC KAILA Attending Unavailable AICHHOLZ, AUTO SUSPENSION AND STEERING MECHANIC KAILA Consulting Unavailable AICHHOLZ, AUTO SUSPENSION AND STEERING MECHANIC KAILA Primary Care Unavailable AICHHOLZ, AUTO SUSPENSION AND STEERING MECHANIC KAILA Admitting Unavailable AICHHOLZ, AUTO SUSPENSION AND STEERING MECHANIC KAILA Attending Unavailable AICHHOLZ, AUTO SUSPENSION AND STEERING MECHANIC KAILA Consulting Unavailable AICHHOLZ, AUTO SUSPENSION AND STEERING MECHANIC KAILA Primary Care Unavailable AICHHOLZ, AUTO SUSPENSION AND STEERING MECHANIC KAILA Admitting Unavailable AICHHOLZ, AUTO SUSPENSION AND STEERING MECHANIC KAILA Attending Unavailable AICHHOLZ, AUTO SUSPENSION AND STEERING MECHANIC KAILA Consulting Unavailable AICHHOLZ, AUTO SUSPENSION AND STEERING MECHANIC KAILA Primary Care Unavailable AICHHOLZ, AUTO SUSPENSION AND STEERING MECHANIC KAILA Admitting Unavailable Aichliset Kaila J Primary Care Provider Kaila Goldstein Attending Provider AichKaila hutchins CNP Primary Care Provider [phone] YANN KUHN Attending Unavailable AICHHOLZ, KAILA NOLAN Primary Care Unavailable LY, HARLEEN Referring Unavailable LY, HARLEEN Attending Unavailable AICDANIELA KAILA NOLAN Primary Care Unavailable Quinn Antunez MD Primary Care Provider [phone] Aichholz SORORITY MOTHER, Kaila Unavailable Tulio GAONA, Quinn Unavailable Aichholz SORORITY MOTHER, Kaila Unavailable Tulio GAONA, Quinn Unavailable Tulio GAONA, Quinn Primary Care Provider Aichholz SORORITY MOTHER, Kaila Unavailable Tulio GAONA, Quinn Unavailable Tulio GAONA, Quinn Unavailable AICALEXANDRA SUAREZA Attending Unavailable AICKAILA SUAREZ Attending Unavailable KAROL ABREU Attending Unavailable MADDIE CALVO Attending Unavailable Aichholz SORORITY MOTHER-C, Kaila Berry Primary Care Provider Aichholz SORORITY MOTHER-C, Kaila Berry Attending Provider [facility] RICHARDS [facility]ending Provider [facility]ending [facility] Admitting Unavailable Kaila Goldstein Primary Care Unavailable Quinn Antunez MD Primary Care Provider [phone] Aichholz SORORITY MOTHER, Kaila Unavailable Tulio GAONA, Quinn Unavailable Quinn Antunez MD Primary Care Provider [phone] Aichholz SORORITY MOTHER, Kaila Unavailable Quinn Antunez MD Unavailable Aichholz SORORITY MOTHER, Kaila Unavailable Aichholz SORORITY MOTHER-C, Kaila J Primary Care Provider Aichholz SORORITY MOTHER-C, Kaila J Attending Provider [facility] RICHARDS Attending Provider Allergies Allergy ClassificationReported Allergen(s)Allergy TypeDate of OnsetReaction(s) FacilityUnclassified (4 sources)Thiazides; Translations: [THIAZIDES]Drug allergy (disorder)01-04-2013 [facility] (8 sources)Spironolactone; Translations: [SPIRONOLACTONE]Drug Tdjhtlf45-29-2499 [facility] (3 sources)ThiazidesDrug Pwcbvsb86-88-9904XzvdpCcpgtccof Clinic (20 sources)fexofenadine; Translations: [FEXOFENADINE HCL]Drug Ovgiren62-34-7875 [facility] (20 sources)hydroCHLOROthiazideDrug Liyrrgb91-92-7667VsiltYEVW [facility] (20 sources)SpironolactoneDrug Irahpnt52-10-7732GZWQ [facility] (20 sources)Thiazide-Type DiureticsDrug Rgxiltz02-77-1890WopvkVSOK Healthcare (3 sources)fexofenadineDrug Qakekmt10-34-0397TkdwnKspuyatyeDunlap Memorial Hospital Medications Current Medications MedicationDrug Class(es)DatesSig (Normalized)Sig (Original)allopurinol 100 mg oral tablet (20 sources)Xanthine Oxidase InhibitorStart: 07-11-2024 End: 47-95-9783cszc 1 tablet by mouth once dailyAllopurinol 100 mg tablet Active 100 MG PO Daily January 31, 2025 11:00pm Complies with drug therapyStart: 10-31-2023 End: 65-74-4127zror 1 tablet by mouth once dailyallopurinol (Zyloprim) 100 MG tablet Indications: Gout, unspecified Take 1 tablet (100 mg) by mouthDaily 90 tablet 1 01/19/2024 04/18/2024 Activetake 1 tablet by mouth in the morning allopurinol (Zyloprim) 100 MG tablet Take 100 mg by mouth in the morning. 0 ActiveComment on above:Allopurinolamoxicillin 875 mg / clavulanate 125 mg oral tablet (2 sources)Penicillin-class AntibacterialStart: 12-19-2024 End: 12-18-0387dqsy 1 tablet by mouth in the morningamoxicillin-clavulanate (Augmentin) 875-125 MG tablet Indications: Dog bite, initial encounter Take1 tablet (875 mg) by mouth in the morning and 1 tablet (875 mg) before bedtime. Do all this for 10 days. 20 tablet 12/19/2024 12/29/2024 ActiveStart: 12-29-2023 End: 75-85-0137paun 1 tablet by mouth in the morningamoxicillin-clavulanate (Augmentin) 875-125 MG tablet Indications: Acute cystitis without hematuriaTake 1 tablet (875 mg) by mouth in the morning and 1 tablet (875 mg) before bedtime. Do all this for 10 days. Take with food. 20 tablet 12/29/2023 01/08/2024 Active apixaban 5 mg oral tablet (20 sources)Factor Xa InhibitorStart: 72-19-4995fyqx 1 tablet by mouth twice dailyApixaban (Eliquis) 5 mg tablet Active 5 MG PO Twice daily January 31, 2025 11:00pm Complies with drug therapyComment on above:Take 5 mg by mouth two times a day.atorvastatin 10 mg oral tablet (20 sources)HMG-CoA Reductase InhibitorStart: 01-19-2024 End: 18-36-2090hsib 1 tablet by mouth in the eveningatorvastatin (Lipitor) 10 MG tablet Indications: Mixed hyperlipidemia Take 1 tablet (10 mg) by mouth in the evening 90 tablet 1 03/02/2024 ActiveStart: 19-58-9010ljwp 1 tablet by mouth in the eveningatorvastatin (Lipitor) 10 MG tablet Indications: Mixed hyperlipidemia (CMS/HCC) Take 1 tablet (10 mg) by mouth in the evening 90 tablet 1 09/15/2023 Activetake 1 tablet by mouth in the morningatorvastatin (Lipitor) 10 MG tablet Take 10 mg by mouth in the morning. 0 ActiveComment on above:Atorvastatin CalciumBlood Glucose Monitoring Suppl (Blood Glucose Monitor System) w/Device kit (20 sources)Start: 74-26-2339Fglxm Glucose Monitoring Suppl (Blood Glucose Monitor System) w/Device kit Indications: Type 2 diabetes mellitus without complication, without long-term current use of insulin ([facility]) 1 kit 3 (three) ti mes a day as needed (3 times daily prn) 1 kit 05/22/2023 ActiveStart: 05-22-2023 Blood Glucose Monitoring Suppl (Blood Glucose Monitor System) w/Device kit Indications: Type 2 diabetes mellitus without complication, without long-term current use of insulin 1 kit 3 (three) times aday as needed (3 times daily prn) 1 kit 05/22/2023 ActiveStart: 62-43-3522Nvzfm Glucose Monitoring Suppl (Blood Glucose Monitor System) w/Device kit Indications: Type 2 diabetes mellitus without complication, without long-term current use of insulin (CMS/HCC) 1 kit 3 (three) times a day as needed (3 times daily prn) 1 kit 05/22/2023 ActiveStart: 99-50-8105Erynr Glucose Monitoring Suppl (Blood Glucose Monitor System) w/Device kit Indications: Type 2 diabetes mellitus without complication, without long- term current use of insulin (CMS/HCC) 1 kit 3 (three) times a day as needed (3 times daily prn) 1 kit 0 05/22/2023 Activecalcium carbonate 1500 mg oral tablet (20 sources)Start: 07-58-3957gywa 1 tablet by mouth twice dailyCalcium Carbonate (Super Calcium) 600 mg calcium (1,500 mg) tablet Active 600 MG PO Twice daily January 31, 2025 11:00pm Complies with drug therapytake 1 tablet by mouth in the morningcalcium carbonate (Calcium 600) 1500 (600 Ca) MG tablet Take 1,500 mg by mouth in the morning and 1,500 mg in the evening. Take with meals. Active carvedilol 6.25 mg oral tablet (19 sources)alpha-Adrenergic Rosa, beta-Adrenergic BlockerStart: 02-01-2025 take 1 tablet by mouth twice daily at mealtimeCarvedilol 6.25 mg tablet Active 6.25 MG PO Twice daily January 31, 2025 11:00pm must administer with a meal/food Complies with drug therapyStart: 11-17-2023 End: 20-37-1500llee 1 tablet by mouth in the morningcarvedilol (Coreg) 6.25 MG tablet Take 6.25 mg by mouth in the morning and 6.25 mg in the evening. Take with meals. 11/17/2023 Activeciprofloxacin 500 mg oral tablet (1 source)Quinolone AntimicrobialStart: 01-06-2024 End: 84-62-4527souh 1 tablet by mouth in the morningciprofloxacin (Cipro) 500 MG tablet Indications: Acute cystitis without hematuria Take 1 tablet (500 mg) by mouth in the morning and 1 tablet (500 mg) before bedtime. Do all this for 10 days. 20 tablet 01/06/2024 01/16/2024 Activefurosemide 20 mg oral tablet (3 sources)Loop DiureticStart: 11-78-1534mwmu 1 tablet by mouth once daily Furosemide 20 mg tablet Active 20 MG PO Daily February 01, 2025 11:00pm Edema of both lower extremities Localized edema Complies with drug therapyisopropyl alcohol 0.7 ml/ml medicated pad (20 sources)Alcohol Swabs pads Activelevothyroxine sodium 0.1 mg oral tablet (20 sources)l-ThyroxineStart: 01-19-2024 End: 71-56-6702mwdb 1 tablet by mouth once dailyLevothyroxine 100 mcg tablet Active 100 MCG PO Daily January 31, 2025 11:00pm Complies with drug therapy Start: 15-18-4836rgvu 1 tablet by mouth before mealtimelevothyroxine (Synthroid, Levoxyl) 100 MCG tablet Indications: Hypothyroidism, unspecified type (CMS/HCC) Take 1 tablet (100 mcg) by mouth in the morning. Take before meals. 90 tablet 1 07/27/2023 Activetake 1 tablet by mouth before mealtimelevothyroxine (Synthroid, Levoxyl) 100 MCG tablet Take 100 mcg by mouth in the morning. Take beforemeals. 0 ActiveComment on above:Levothyroxine Sodiumlosartan potassium 50 mg oral tablet (20 sources)Angiotensin 2 Receptor BlockerStart: 01-19-2024 End: 69-02-5871zxco 1 tablet by mouth once dailyLosartan 50 mg tablet Active 50 MG PO Daily January 31, 2025 11:00pm Complies with drug therapyStart: 12-70-4604ckzk 1 tablet by mouth once dailylosartan (Cozaar) 50 MG tablet Indications: Primary hypertension (CMS/HCC) Take 1 tablet (50 mg) bymouth Daily 90 tablet 1 08/27/2023 Activetake 1 tablet by mouth in the morninglosartan (Cozaar) 50 MG tablet Take 50 mg by mouth in the morning. 0 ActiveComment on above:Losartan PotassiummetFORMIN hydrochloride 500 mg oral tablet (20 sources)BiguanideStart: 01-19-2024 End: 14-95-4581vgwg 1 tablet by mouth once dailyMetformin 500 mg tablet Active 500 MG PO Daily January 31, 2025 11:00pm Complies with drug therapyStart: 83-26-1276qwum 1 tablet by mouth at mealtimemetFORMIN (Glucophage) 500 MG tablet Indications: Type 2 Diabetes Mellitus Take 1 tablet (500 mg) by mouth in the morning. Take with meals. 90 tablet 1 08/10/2023 Activetake 1 tablet by mouth at mealtimemetFORMIN (Glucophage) 500 MG tablet Indications: Type 2 Diabetes Mellitus Take 500 mg by mouth in the morning. Take with meals. 0 ActivemetFORMIN ER (FORTAMET) 500 mg 24 hr tablet metFORMIN HCl 0 ActiveComment on above: metFORMIN HCl24 hr metoprolol succinate 25 mg extended release oral tablet (4 sources)beta-Adrenergic Blockertake 1 tablet by mouth every twenty-four hours in the morningmetoprolol succinate XL (Toprol-XL) 25 MG 24 hr tablet Take 25 mg by mouth in the morning. Do not crush or chew.. 0 ActiveComment on above: Metoprolol SuccinateMultiple Vitamins-Minerals (CENTRUM SILVER 50+MEN PO) (20 sources)Multiple Vitamins-Minerals (CENTRUM SILVER 50+MEN PO) Take by mouth ActiveMultiple Vitamins-Minerals (CENTRUM SILVER 50+MEN PO) Take by mouth 0 ActiveMultivitamin tablet (3 sources)Start: 74-80-1498khxq 1 tablet by mouth once dailyMultivitamin tablet Active 1 TAB PO Daily January 31, 2025 11:00pm Complies with drug therapy Start: 52-33-7992fmgq 1 tablet by mouth once dailyStart: 45-71-5933czgv 1 tablet by mouth once dailyMultivitamin tablet Active 1 TAB PO Daily February 01, 2025 12:00am Complies with drug therapypolymyxin b 75226 unt/ml / trimethoprim 1 mg/ml ophthalmic solution (1 source)Dihydrofolate Reductase Inhibitor Antibacterial, Polymyxin-class AntibacterialStart: 04-08-2024 End: 39-64-5642ayuc 1 drop(s) into the eye(s) every four hourstrimethoprim- polymyxin b (Polytrim) ophthalmic solution Indications: Acute bacterial conjunctivitis, unspecified laterality Administer 1 drop into affected eye(s) every 4 (four) hours for 10 days 10 mL 04/08/2024 04/18/2024 Activerosuvastatin calcium 5 mg oral tablet (12 sources)HMG-CoA Reductase InhibitorStart: 98-70-4715ngmb 1 tablet by mouth once dailyRosuvastatin 5 mg tablet Active 5 MG PO Daily January 31, 2025 11:00pm Complies with drug therapyStart: 09-22-2024 End: 23-69-5527rasz 1 tablet by mouth once dailyrosuvastatin (Crestor) 5 MG tablet Take 5 mg by mouth Daily 09/22/2024 ActiveSemaglutide (2 sources)Start: 59-43-2746nqpdtk 1 mg by subcutaneous injection every week Semaglutide (Ozempic) 1 mg/dose (4 mg/3 mL) pen injector Active 1 MG SUBCUT every week 12 1 February 01, 2025 11:00pm Type 2 diabetes mellitus Type 2 diabetes mellitus without complications Complies with drug therapyStart: 87-42-9746bwemwb 1 mg by subcutaneous injection every weekSemaglutide,0.25 or 0.5MG/DOS, (Ozempic, 0.25 or 0.5 MG/DOSE,) 2 MG/3ML solution pen-injector (7 sources)Start: 38-94-9363Oqdjhldfyur,0.25 or 0.5MG/DOS, (Ozempic, 0.25 or 0.5 MG/DOSE,) 2 MG/3ML solution pen-injector Indications: Atrial fibrillation, unspecified type (HCC) , Primary hypertension , Type 2 diabetes mellitus without complication, without long-term current use of insulin ([facility]) , Mixed hyperlipidemia , Morbid (severe) obesity due to excess calories ([facility]) Inject 0.25 mg under the skin every 7 (seven) days Take 0.25mg weekly for 4 weeks, then increase to 0.5mg weekly 3 mL 2 11/02/2024 ActiveStart: 11-02-2024 End: 09-27-5544Verwwbuimid,0.25 or 0.5MG/DOS, (Ozempic, 0.25 or 0.5 MG/DOSE,) 2 MG/3ML solution pen-injector Indications: Atrial fibrillation, unspecified type (HCC) , Primary hypertension , Type 2 diabetes mellitus without complication, without long-term current use of insulin (HCC) , Mixed hyperlipidemia , Morbid (severe) obesity due to excess calories ([facility]) Inject 0.25 mg under the skin every 7 (seven) days Take 0.25mg weekly for 4 weeks, then increase to 0.5mg weekly 3 mL 2 11/02/2024 12/02/2024 Activespironolactone 25 mg oral tablet (20 sources)Aldosterone AntagonistStart: 87-15-3700trub 1 tablet by mouth once dailySpironolactone (Aldactone) 25 mg tablet Active 25 MG PO Daily January 31, 2025 11:00pm Complieswith drug therapy Completed/Discontinued Medications MedicationDrug Class(es)DatesSig (Normalized)Sig (Original)Calcium Carbonate / vitamin D3 (3 sources)calcium carbonate/vitamin D3 (CALCIUM 500 + D ORAL) Take by mouth. 0 ActiveComment on above:Take by mouth.multivit-minerals/folic acid (CENTRUM ADULTS ORAL) (3 sources)multivit-minerals/folic acid (CENTRUM ADULTS ORAL) Centrum 0 Active Comment on above:Centrumpolyethylene glycol 3350 235135 mg / potassium chloride 2970 mg / sodium bicarbonate 6740 mg / sodium chloride 5860 mg / sodium sulfate 80847 mg powder for oral solution (1 source)Osmotic LaxativeStart: 04-29-2023 End: 40-78-6159gsu 3350-Electrolytes (GOLYTELY) 236-22.74-6.74 -5.86 gram suspension Take 4,000 mL by mouth one time only for 1 dose. 1 Each 0 04/29/2023 04/29/2023 ExpiredComment on above:Take 4,000 mL by mouth one time only for 1 dose.Semaglutide (3 sources)Start: 02-01-2025 End: 37-75-4988Csymwwulcax (Ozempic) 0.25 mg or 0.5 mg (2 mg/3 mL) pen injector Discontinued 0.25 MG SUBCUT every week January 31, 2025 11:00pm February 02, 2025 8:01am for 4 weeksStart: 02-01-2025 End: 32-87-3924Uifjgbsxizf (Ozempic) 0.25 mg or 0.5 mg (2 mg/3 mL) pen injector Discontinued 0.25 MG SUBCUT every week February 01, 2025 12:00am February 02, 2025 9:01am for 4 weeksStart: 39-11-6103Nefenjlsmot (Ozempic) 0.25 mg or 0.5 mg (2 mg/3 mL) pen injector Active 0.25 MG SUBCUT every week February 01, 2025 12:00am for 4 weeks Complies with drug therapy Problems Active Problems Problem ClassificationProblemDateDocumented DateEpisodic/ChronicAnxiety disorders (20 sources)Panic attack; Translations: [Panic disorder [episodic paroxysmal anxiety]]Onset: 623510-63-3686TrwugxqZzoskvu dysrhythmias (20 sources)Chronic atrial fibrillation; Translations: [Chronic atrial fibrillation, unspecified]Onset: 589618-47-9257QfmcqfsOgcvdhyg mellitus without complication (20 sources)Type 2 diabetes mellitus without complications; Translations: [Type 2 diabetes mellitus]Onset: 86-27-7794CzaeffcUfwxpxyye of lipid metabolism (20 sources)Hyperlipidemia; Translations: [Hyperlipidemia, unspecified]Onset: 363949-58-7873LrebyeqT Codes: Natural/environment (8 sources)Dog bite - wound; Translations: [Bitten by dog, initial encounter] Onset: 625209-51-8688NwoczxraQqvgxniic hypertension (20 sources)Essential (primary) hypertension; Translations: [Essential hypertension]Onset: 537838-05-0435IejilexFuidqwtxniouq symptoms and ill- defined conditions (20 sources)Asymptomatic microscopic hematuria; Translations: [Asymptomatic microscopic hematuria]Onset: 316149-54-5022CxkhiocgMfcq and other crystal arthropathies (20 sources)Gout, unspecified; Translations: [Gout]Onset: 596791-67-3590 ChronicImmunizations and screening for infectious disease (1 source)Encounter for immunization; Translations: [Encounter for immunization] Onset: 95-16-0174FpdlhzmiIeqcunntqhjjrt (20 sources)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; Translations: [Primary osteoarthritis, right ankle and foot]Onset: 68-73-182470582353-06-4738Tvwtnor Other and unspecified benign neoplasm (2 sources)History of polyp of colon; Translations: [Personal history of colonic polyps]24-83-1924QewpfmkdVdcbs and unspecified benign neoplasm (1 source)Personal history of colonic polyps; Translations: [History of colon polyps]Onset: 13-51-8768XlwnocquLiygy connective tissue disease (20 sources)Chronic pain of right foot; Translations: [Pain in right foot]Onset: 246575-45-4470KjgbfuncYbnqs lower respiratory disease (20 sources)Multiple nodules of lung; Translations: [Other nonspecific abnormal finding of lung field]Onset: 817843-05-4163WbjgkpxmNggjf non-traumatic joint disorders (20 sources)Joint pain; Translations: [Pain in unspecified joint]Onset: 416289-25-5018QvbiggbtBmggi nutritional; endocrine; and metabolic disorders (3 sources)Obese class III; Translations: [Morbid (severe) obesity due to excess calories]Onset: 094747-97-5743RtkyoytNolzp nutritional; endocrine; and metabolic disorders (1 source)Morbid (severe) obesity due to excess calories; Translations: [Class 3 obesity (HCC)]Onset: 39-52-7958RobloktNrvxt nutritional; endocrine; and metabolic disorders (20 sources)Obesity caused by energy imbalance; Translations: [Morbid (severe) obesity due to excess calories]Onset: 176997-92-3060WchezfyFbvhh nutritional; endocrine; and metabolic disorders (20 sources)Body mass index 40+ - severely obese; Translations: [Body mass index (BMI) 45.0-49.9, adult]Onset: 552266-97-2045UgswsrcTchfm screening for suspected conditions (not mental disorders or infectious disease) (20 sources)Mammography abnormal; Translations: [Other abnormal and inconclusive findings on diagnostic imagingof breast]Onset: 185535-51-3402Hffwuuds Residual codes; unclassified (20 sources)Obstructive sleep apnea syndrome; Translations: [Obstructive sleep apnea (adult) (pediatric)]Onset: 929467-30-1568WqtxlsgEbafpphz codes; unclassified (2 sources)Obstructive sleep apnea (adult) (pediatric); Translations: [Obstructive sleep apnea (adult) (pediatric)]Onset: 72-07-2201OgtblibGfappidp codes; unclassified (2 sources)Localized edema; Translations: [Localized edema]Onset: 12-12-2024 EpisodicResidual codes; unclassified (2 sources)Other specified postprocedural states; Translations: [Other specified postprocedural states]Onset: 77-67-0404NjrdnqqrRqmqgvzw codes; unclassified (3 sources)Bilateral lower limb edema; Translations: [Localized edema]02-02-2025 EpisodicScreening and history of mental health and substance abuse codes (2 sources)Tobacco use and exposure - bditaml30-27-7356JrjgvdoCsxqcyumx and history of mental health and substance abuse codes (20 sources)Tobacco use and exposure - finding; Translations: [Personal history of nicotine dependence]Onset: 675437-26-8580YnkzbkraSvdmjqx disorders (20 sources)Hypothyroidism, unspecified; Translations: [Hypothyroidism]Onset: 88-22-4901VjywektBccyskkfxrnk (1 source)Chronic atrial fibrillation, unspecified; Translations: [Chronic atrial fibrillation (HCC)]Onset: 25-92-5489Whowy infection (1 source)COVID-19; Translations: [COVID-19]Onset: 05-04-2022 Past or Other Problems Problem ClassificationProblemDateDocumented DateEpisodic/ChronicFever of unknown origin (4 sources)Fever, unspecified; Translations: [FEVER UNSPECIFIED]Onset: 15-13-3728BryvfbzyOomyabpsfxaw; infection of eye (except that caused by tuberculosis or sexually transmitteddisease) (18 sources)Acute infectious conjunctivitis; Translations: [Unspecified acute conjunctivitis, unspecified eye]Onset: 04-08-2024 Resolved: 681982-85-1888ZhlazvbqGfjlqqr and fatigue (1 source)Other malaise; Translations: [OTHER MALAISE]Onset: 87-89-0163Bonekbyx Mood disorders (17 sources)Mood disordersOnset: 815971-00-6495Soyyp nutritional; endocrine; and metabolic disorders (20 sources)Morbid obesity; Translations: [Morbid (severe) obesity due to excess calories]Onset: 05-04-2023 Resolved: 849490-31-9190BzvvrdvSqgliti tract infections (20 sources)Acute cystitis; Translations: [Acute cystitis without hematuria] Onset: 623384-41-5042Ggjckwhk Results Test NameValueInterpretationReference DdhueXomxjnamOkA6f HPLC (Bld) [Mass fraction]Ordered By: Kaila Goldstein on 17-84-1809BfT5d (Bld) [Mass fraction]5.9 % [facility]36on [id number] lab results from 01/12/2025: MD Opal Rivas MA Blood testing was ok. Continue same and see me in 6 months as planned. LVM left for patient advising her of her lab results per Dr. Nelson request [facility]36on [id number] lab results from 01/12/2025: MD Opal Rivas MA Blood testing was ok. Continue same and see me in 6 months as planned.[facility]Telephoneon [id number] Hortensia Bates 1955 F Date Provider Department Center 01/12/2025 OPAL MATA Family History Problem Relation Age of Onset No Known Problems Mother No Known Problems Father Family Status - Relation Status Age at Mother Alive Father DeceasedNormalUniversThe University of Toledo Medical CenterOffice Visiton [phone]-up [id number] Hortensia Bates 1955 F Date Provider Department Center 12/12/2024 KAROL GANT Family History Problem Relation Age of Onset No Known Problems Mother No Known Problems Father Family Status - Relation Status Age at Mother Alive Father Level of Service:41395 [place] OFFICE/OUTPATIENT ESTABLISHED MOD MDM [facility]Abstracton [id number] Hortensia Bates 1955 F Date Provider Department Center 12/01/2024 KAROL GANT [facility] Family History Problem Relation Age of Onset No Known Problems Mother No Known Problems Father Family Status - Relation Status Age at Mother FatherNormalUniSheltering Arms HospitalCT LUNG SCREENING LOW DOSEon [phone] [address] [place] Scan Report Signed Patient: HORTENSIA BATES MR#: [id number] : 1955 Acct:[id number] Age/Sex: 69 / F ADM Date: 11/24/24 Loc: MAMMO Attending Dr: Kaila Goldstein NP Ordering Physician: Kaila Goldstein NP Date of Service: 11/24/24 Procedure(s): CT lung screening low-dose Accession Number(s): [id number] cc: Kaila Goldstein NP [place] [id number] Patient Name: HORTENSIA BATES MRN: [id number] date: 1955 Sex: F Assigned Patient Location: [facility] Current Patient Location: [facility] Accession/Order Number: [id number] Exam Date: 11/24/2024 11:37 Report Date: 11/24/2024 11:51 At the request of: KAIAL GOLDSTEIN NP Procedure: CT lung screening low-dose [...] Suarez M.D. 11/24/2024 11:51 AM Dictation Location: [place] [address] Electronically authenticated by: [id number] Y Date: 11/24/2024 11:51 Dictated By: Cait Suarez M.D. Signed By: 11/24/24 1154 DD/ 1151 TD/TT: Elementary Summer School Teacher:TBHRadiology, Radiologist, MD - 11/24/2024 [place] [id number] CT Scan Report Signed Patient: HORTENSIA BATES MR#: [id number] : 1955 Acct:[id number] Age/Sex: 69 / F ADM Date: 11/24/24 Loc: MAMMO Attending Dr: Kaila Goldstein NP Ordering Physician: Kaila Goldstein NP Date of Service: 11/24/24 Procedure(s): CT lung screening low-dose Accession Number(s): [id number] cc: Kaila Goldstein NP The [address] [address] Patient Name: HORTENSIA BATES MRN: [id number] date: 1955 Sex: F Assigned Patient Location: [facility] Current Patient Location: [facility] Accession/Order Number: [id number] Exam Date: 11/24/2024 11:37 Report Date: 11/24/2024 [...] Suarez M.D. 11/24/2024 11:51 AM Dictation Location: [place] [address] Electronically authenticated by: [id number] Y Date: 11/24/2024 11:51 Dictated By: Cait Suarez M.D. Signed By: 11/24/24 1154 DD/ 1151 TD/TT: Elementary Summer School Teacher: AMY HealthcareRadiology Study observation (narrative)[facility] HealthcareCT LUNG SCREENING LOW DOSEOrdered By: Radiologist Radiology on 03-21-4518IITB COTA Work Phone: MM TOMOSYNTHESIS SCREENING BIon 27-01-5875[place] [id number] Mammography Report Signed Patient: HORTENSIA BATES MR#: [id number] : 1955 Acct:[id number] Age/Sex: 69 / F ADM Date: 11/24/24 Loc: MAMMO Attending Dr: Kaila Goldstein NP Ordering Physician: Kaila Goldstein NP Results: Date of Service: 11/24/24 Follow Up: Procedure(s): MM tomosynthesis screening BI Accession Number(s): [id number] cc: Kaila Goldstein NP Patient Name: HORTENSIA BATES MR#: [id number] : 1955 Exam Date: 11/24/2024 Ordering Doctor: [...] Treatments None Family Cancers None LOCATION: [facility] BREAST COMPOSITION: There are scattered areas [...] Sue D.O. Signed By: 11/24/24 1347 DD/ 45 TD/TT: Elementary Summer School Teacher:TBHRadiology, Radiologist, - 11/24/2024 The [place] [id number] Mammography Report Signed Patient: HORTENSIA BATES MR#: [id number] : 1955 Acct:[id number] Age/Sex: 69 / F ADM Date: 11/24/24 Loc: MAMMO Attending Dr: Kaila Goldstein NP Ordering Physician: Kaila Goldstein NP Results: Date of Service: 11/24/24 Follow Up: Procedure(s): MM tomosynthesis screening BI Accession Number(s): [id number] cc: Kaila Goldstein NP Patient Name: HORTENSIA BATES MR#: [id number] : 1955 Exam Date: 11/24/2024 Ordering Doctor: [...] Treatments None Family Cancers None LOCATION: [facility] BREAST COMPOSITION: There are scattered areas [...] Signed By: 11/24/24 1347 DD/ 134 TD/TT: Elementary Summer School Teacher: AMY HealthcareRadiology Study observation (narrative)[facility] TOMOSYNTHESIS SCREENING BIOrdered By: Radiologist Radiology on [id number] Healthcare Work Phone: aLL CBC WITH AUTO DIFFon [id number] ABSOLUTE AUTO0.1NOMS HealthcareBasophils/100 WBC (Bld)0.7 %0.2 - 2.0 %[facility] Eosinophils/100 WBC (Bld)2.8 %0.9 - 7.0 %[facility] HospitalErythrocyte distribution width (RBC) [Ratio]14.3 %11.0 - 15.0 %NOMCarondelet HealthHematocrit (Bld) [Volume fraction]43 %36.0 - 48.0 %[facility] HospitalHemoglobin (Bld) [Mass/Vol]13.9 g/dL 12.0 - 16.0 g/dLSt. Lukes Des Peres HospitalIMMATURE GRANULOCYTES ABS AUTO0.03[facility] Immature granulocytes/100 WBC (Bld)0.3 %0.0 - 0.5 %[facility] HospitalLYMPHOCYTES ABSOLUTE AUTO3.4NORanken Jordan Pediatric Specialty HospitalLymphocytes/100 WBC (Bld)33.8 %20.5 - 60.0 %[facility] CenterH (RBC) [Entitic mass]28.8 pg26.7 - 34.0 pgMissouri Delta Medical CenterHC (RBC) [Mass/Vol]32.3 g/dL29.9 - 35.2 g/dLMissouri Delta Medical CenterV (RBC) [Entitic vol]89 fL 81.0 - 99.0 fLSt. Lukes Des Peres HospitalMONOCYTES ABSOLUTE AUTO0.6NORanken Jordan [facility] Hospital Monocytes/100 WBC (Bld)6.2 %1.7 - 12.0 %[facility] HospitalNEUTROPHILS ABSOLUTE AUTO 5.6N[facility]S [facility] HospitalNeutrophils/100 WBC (Bld)56.2 %43.0 - 75.0 %[facility] Platelet mean volume (Bld) [Entitic vol]9.9 fL9.5 - 13.5 fLSt. Lukes Des Peres HospitalTB EO #0.3NOMS Mercy HospitalTB [id number] Medical Center RBC4.83NONorthwest Medical Center WBC10 [facility] HospitalCLINISYNCNOMS HealthcareMLR HEMOGLOBIN A1Con 79-50-3403Trvucbg [Mass/Vol]134 mg/dLSt. Lukes Des Peres HospitalHbA1c (Bld) [Mass fraction]6.3 %High4.5 - 6.2 %[facility] HealthcareComment on above:ADA RECOMMENDED LIMIT 4.0 - 6.0 ADA THERAPEUTIC TARGET < 7.0 ACTION SUGGESTED > 7.0 Interpretation and review of laboratory resultsAbnormalINTERMOUNTAIN MED[facility]ENTER HealthcareCLINISYN NOMS Cybsmrfvdf54li [id number], thanks![facility]36on 29-14-544665Cyo she been able to increase rosuvastatin to daily? [facility]36on 91-16-691955Hp can try her on rosuvastatin. Start at 5mg every other day then increase to daily if she is tolerating okay. Follow-up with her again in 1 month to see how she's tolerating the rosuvastatin. Thank you![facility] HospitalOffice Visiton 77-85-0797Npnufu-up [id number] Hortensia Bates 1955 Date Provider Department Center 05/24/2024 MADDIE CRWOLEY [facility] Hos Family History Problem Relation Age of Onset No Known Problems Mother No Known Problems Father Family Status - Relation Status Age at Mother Father Level of Service:88712 RI OFFICE/OUTPATIENT ESTABLISHED LOW MDM 20 MIN Reason for Visit and Comments: Atrial Fibrillation [80] Hypertension [940119] Hyperlipidemia [182][facility] HospitalTelephoneon [id number] Hortensia Bates 1955 Date Provider Department Center 05/24/2024 JOSEFA MONTGOMERY [facility] Hos Family History Problem Relation Age of Onset No Known Problems Mother No Known Problems Father Family Status - Relation Status Age at Mother FatherNormalUniSheltering Arms HospitalCT CHEST WO CONon 86-76-2144[place]dmS[place] [address] CT Scan Report Signed Patient: HORTENSIA BATES MR#: [id number] : 1955 Acct:[id number] Age/Sex: 68 / F ADM Date: 10/01/23 Loc: CT Attending Dr: Kaila Goldstein NP Ordering Physician: Kaila Goldstein NP Date of Service: 10/01/23 Procedure(s): CT chest wo con Accession Number(s): [id number] cc: Kaila Goldstein NP [address] [address] Patient Name: HORTENSIA BATES MRN: [id number] date: 1955 Sex: F Assigned Patient Location: CT Current Patient Location: CT Accession/Order Number: [id number] Exam Date: 10/01/2023 13:05 Report Date: 10/01/2023 14:24 At the request of: KAILA GOLDSTEIN Procedure: CT chest wo con EXAMINATION: CT chest wo con HISTORY: MULTIPLE LUNG NODULES, LUNG NODULE F/U EXAM COMPARISON: CT chest 06/30/2023, 03/18/2023 TECHNIQUE: Multi-planar CT images were obtained without and/or with IV contrast as indicated by examination type. Axial, Coronal, and Sagittal images. Dose reduction techniques were achieved by using automated exposure control and/or adjustment of mA and/or kV according to patient size and/or use of iterative reconstruction technique. FINDINGS: LUNGS: Stable appearance of a few small nodules scattered within the lungs, largest is within the right middle lobe, 8 mm. No new nodules. PLEURA: No mass, effusion, or pneumothorax. VASCULATURE: No abnormality. IBETH: No mass or adenopathy. MEDIASTINUM: No mass or adenopathy. CARDIAC: No enlargement, pericardial thickening, or significant calcification. Coronary artery calcifications: AORTA: No aneurysm or dissection. CHEST WALL: No mass or axillary adenopathy. BONES: No bone lesion or fracture. LIMITED ABDOMEN: No suspicious findings Limited images of the upper abdomen. OTHER: Negative. CT/CT chest wo con IMPRESSION: 1. Lung-RADS Category 3- Probably benign. Probably benign finding(s)- short term follow up suggested; includes nodules with a low likelihood of becoming a clinically active cancer. Six month LDCT. 2. If nodules remain stable in 6 months (one year since initial discovery) then return to annual screening. Electronically authenticated by: KACI CORTEZ Date: 10/01/2023 14:24 Dictated By: Kaci Cortez M.D. Signed By: 10/01/23 1427 DD/ 142 TD/TT: Elementary Summer School Teacher:TBHRadiology, Radiologist, - 10/01/[address] [address] [address] Scan Report Signed Patient: HORTENSIA BATES MR#: [id number] : 1955 Acct:[id number] Age/Sex: 68 / F ADM Date: 10/01/23 Loc: CT Attending Dr: Kaila Goldstein NP Ordering Physician: Kaila Goldstein NP Date of Service: 10/01/23 Procedure(s): CT chest wo con Accession Number(s): [id number] cc: Kaila Goldstein NP [address] [address] Patient Name: HORTENSIA BATES MRN: [id number] date: 1955 Sex: F Assigned Patient Location: CT Current Patient Location: CT Accession/Order Number: [id number] Exam Date: 10/01/2023 13:05 Report Date: 10/01/2023 14:24 At the request of: KAILA GOLDSTEIN Procedure: CT chest wo con EXAMINATION: CT chest wo con HISTORY: MULTIPLE LUNG NODULES, LUNG NODULE F/U EXAM COMPARISON: CT chest 06/30/2023, 03/18/2023 TECHNIQUE: Multi-planar CT images were obtained without and/or with IV contrast as indicated by examination type. Axial, Coronal, and Sagittal images. Dose reduction techniques were achieved by using automated exposure control and/or adjustment of mA and/or kV according to patient size and/or use of iterative reconstruction technique. FINDINGS: LUNGS: Stable appearance of a few small nodules scattered within the lungs, largest is within the right middle lobe, 8 mm. No new nodules. PLEURA: No mass, effusion, or pneumothorax. VASCULATURE: No abnormality. IBETH: No mass or adenopathy. MEDIASTINUM: No mass or adenopathy. CARDIAC: No enlargement, pericardial thickening, or significant calcification. Coronary artery calcifications: AORTA: No aneurysm or dissection. CHEST WALL: No mass or axillary adenopathy. BONES: No bone lesion or fracture. LIMITED ABDOMEN: No suspicious findings Limited images of the upper abdomen. OTHER: Negative. CT/CT chest wo con IMPRESSION: 1. Lung-RADS Category 3- Probably benign. Probably benign finding(s)- short term follow up suggested; includes nodules with a low likelihood of becoming a clinically active cancer. Six month LDCT. 2. If nodules remain stable in 6 months (one year since initial discovery) then return to annual screening. Electronically authenticated by: KACI CORTEZ Date: 10/01/2023 14:24 Dictated By: Kaci Cortez M.D. Signed By: 10/01/231426 DD/ 23 TD/TT: Elementary Summer School Teacher: [facility] HealthcareRadiology Study observation (narrative)[facility] HealthcareCT CHEST WO CONOrdered By: Radiologist Radiology on 73-17-6492PVEK COTA Work Phone: ct CHEST WO CONon 93-18-1694[place]ng[place] [address] CT Scan Report Signed Patient: HORTENSIA BATES MR#: [id number] : 1955 Acct:[id number] Age/Sex: 67 / F ADM Date: 06/30/23 Loc: CT Attending Dr: Kaila Goldstein NP Ordering Physician: Kaila Goldstein NP Date of Service: 06/30/23 Procedure(s): CT chest wo con Accession Number(s): [id number] cc: Kaila Goldstein NP [address] [address] Patient Name: HORTENSIA BATES MRN: [facility]:[id number] date: 1955 Sex: F Assigned Patient Location: CT Current Patient Location: CT Accession/Order Number: [id number] Exam Date: 06/30/2023 10:03 Report Date: 06/30/2023 11:53 At the request of: KAILA GOLDSTEIN Procedure: CT chest wo con EXAM: CT chest wo con HISTORY: Multiple Lung Nodule R91.8 COMPARISON: CT chest 03/18/2023. TECHNIQUE: CT imaging obtained through the chest without intravenous contrast. Coronal and axial MIP reformatted images obtained. FINDINGS: Heart size is normal. No pericardial effusion. Normal thoracic vasculature. No thoracic lymphadenopathy. Central tracheobronchial tree is patent. No pleural effusion or pneumothorax. Left lower lobe nodule, [...] with the left lower lobe nodule similar or possibly slightly decreased. Attention on follow-up chest CT in 3-6 months. Electronically authenticated by: GABY BURGESS Date: 06/30/2023 11:53 Dictated By: Gaby Burgess M.D. Signed By: 06/30/23 1156 DD/ 1153 TD/TT: Elementary Summer School Teacher:TBHRadiology, Radiologist, MD - 06/30/2023 [place] [id number] CT Scan Report Signed Patient: HORTENSIA BATES MR#: [id number] : 1955 Acct:[id number] Age/Sex: 67 / F ADM Date: 06/30/23 Loc: CT Attending Dr: Kaila Goldstein NP Ordering Physician: Kaila Goldstein NP Date of Service: 06/30/23 Procedure(s): CT chest wo con Accession Number(s): [id number] cc: Kaila Goldstein NP The [address] [address] Patient Name: HORTENSIA BATES MRN: [id number] date: 1955 Sex: F Assigned Patient Location: CT Current Patient Location: CT Accession/Order Number: [id number] Exam Date: 06/30/2023 10:03 Report Date: 06/30/2023 11:53 At the request of: KAILA GOLDSTEIN Procedure: CT chest wo con EXAM: CT chest wo con HISTORY: Multiple Lung Nodule R91.8 COMPARISON: CT chest 03/18/2023. TECHNIQUE: CT imaging obtained through the chest without intravenous contrast. Coronal and axial MIP reformatted images obtained. FINDINGS: Heart size is normal. No pericardial effusion. Normal thoracic vasculature. No thoracic lymphadenopathy. Central tracheobronchial tree is patent. No pleural effusion or pneumothorax. Left lower lobe nodule, [...] with the left lower lobe nodule similar or possibly slightly decreased. Attention on follow-up chest CT in 3-6 months. Electronically authenticated by: GABY BURGESS Date: 06/30/2023 11:53 Dictated By: Gaby Burgess M.D. Signed By: 06/30/23 1156 DD/ 1153 TD/TT: Elementary Summer School Teacher: [facility] HealthcareRadiology Study observation (narrative)[facility] HealthcareCT CHEST WO CONOrdered By: Radiologist Radiology on 69-52-3222AHFF Healthcare Work Phone: ca ECHO DOPPLER COMPLETEon 89-90-6716CreS[place] [address] Cardiology Report Signed Patient: Hortensia Bates MR#: [id number] : 1955 Acct:[id number] Age/Sex: 67 / F ADM Date: 06/23/23 Loc: CARD Attending Dr: UMAIR ENRIQUE Ordering Physician: UMAIR ENRIQUE Date of Service: 06/23/23 Procedure(s): CA echo doppler complete Accession Number(s): [id number] cc: Kaila Goldstein SORORITY MOTHER; UMAIR ENRIQUE Patient Name: HORTENSIA BATES MR#: [id number] : 1955 Exam Date: 06/23/2023 Ordering Doctor: UMAIR ENRIQUE ECHOCARDIOGRAM REPORT PROCEDURE: CA ECHO DOPPLER COMPLETE INDICATIONS: Atrial fibrillation, hypertension, edema, diabetes COMPARISON: None. DESCRIPTION: COMPLETE ECHOCARDIOGRAM Real-time transthoracic echocardiography with 2D, M-mode, spectral and color flow Doppler performed. QUALITY: Technical quality was good. 69 , 313#, BSA 2.47 m2 LEFT VENTRICLE: Normal chamber size. Normal left ventricular wall thickness. Normal systolic function. LV EF: Normal left ventricular ejection fraction, (>55%). DIASTOLIC: Normal diastolic function. ATRIAL SEPTUM: Visually appears intact. LEFT ATRIUM: Moderate dilatation. RIGHT ATRIUM: Normal chamber size. RIGHT VENTRICLE: Normal chamber size. Normal right ventricular systolic function. TRICUSPID VALVE: Normal mobility and thickness. No stenosis with trivial regurgitation. Unable to assess right sided pressures due to lack of measurable tricuspid regurgitation. MITRAL VALVE: Normal mobility and thickness. Mild mitral annular calcification. Trivial mitral regurgitation. AORTIC VALVE: Normal trileaflet appearance. No visible sclerosis. Normal leaflet mobility. No evidence of aortic valve [...] due to lack of measurable tricuspid regurgitation. 6. The patient appears to be [...] on 06/23/2023 at 16:18 Approved by: Karol Abreu M.D. on 06/23/2023 at 16:22 Dictated By: KAROL ABREU Signed By: (more content not included)...TBHRadiology, Radiologist, - 06/23/2023 [place] [id number] Cardiology Report Signed Patient: Hortensia Bates MR#: [id number] : 1955 Acct:[id number] Age/Sex: 67 / F ADM Date: 06/23/23 Loc: CARD Attending Dr: UMAIR ENRIQUE Ordering Physician: UMAIR ENRIQUE Date of Service: 02/06/24 Procedure(s): CA echo doppler complete Accession Number(s): [id number] cc: Kaila Goldstein NP; UMAIR ENRIQUE Patient Name: HORTENSIA BATES MR#: [id number] : 1955 Exam Date: 06/23/2023 Ordering Doctor: UMAIR ENRIQUE ECHOCARDIOGRAM REPORT PROCEDURE: CA ECHO DOPPLER COMPLETE INDICATIONS: Atrial fibrillation, hypertension, edema, diabetes COMPARISON: None. DESCRIPTION: COMPLETE ECHOCARDIOGRAM Real-time transthoracic echocardiography with 2D, M-mode, spectral and color flow Doppler performed. QUALITY: Technical quality was good. 69 , 313#, BSA 2.47 m2 LEFT VENTRICLE: Normal chamber size. Normal left ventricular wall thickness. Normal systolic function. LV EF: Normal left ventricular ejection fraction, (>55%). DIASTOLIC: Normal diastolic function. ATRIAL SEPTUM: Visually appears intact. LEFT ATRIUM: Moderate dilatation. RIGHT ATRIUM: Normal chamber size. RIGHT VENTRICLE: Normal chamber size. Normal right ventricular systolic function. TRICUSPID VALVE: Normal mobility and thickness. No stenosis with trivial regurgitation. Unable to assess right sided pressures due to lack of measurable tricuspid regurgitation. MITRAL VALVE: Normal mobility and thickness. Mild mitral annular calcification. Trivial mitral regurgitation. AORTIC VALVE: Normal trileaflet appearance. No visible sclerosis. Normal leaflet mobility. No evidence of aortic valve [...] due to lack of measurable tricuspid regurgitation. 6. The patient appears to be [...] on 06/23/2023 at 16:18 Approved by: Karol Abreu M.D. on 06/23/2023 at 16:22 Dictated By: KAROL ABREU Signed By: 06/23/231622 DD/ 21 TD/TT: Elementary Summer School Teacher: [facility] HealthcareRadiology Study observation (narrative)[facility] HospitalCA ECHO DOPPLER COMPLETEOrdered By: Radiologist Radiology on 46-15-6673POMN COTA Work Phone: cNPJaney [phone] (GASTNO) HORTENSIA BATES ([id number]) 1955 F Date Time Provider Department 06/23/23 HARLEEN MACDONALD During your visit today, we recorded the following information about you: Sara Do RN 06/23/2023 10:21 AM Signed ----- Message from Harleen Macdonald, DO sent at 06/22/2023 1:12 PM EST [...] mg 24 hr tablet metFORMIN HCl - multivit-minerals/folic acid (CENTRUM ADULTS ORAL) Centrum - losartan [...] Encounter Status:Closed by WINDY CABA MA on 06/23/23[facility] SURGICAL PATHOLOGYon 84-35-8790UIF CASE REPORTNORanken Jordan Pediatric Specialty Hospital Comment on above:Surgical Pathology Report Case: [id number] Authorizing Provider: Harleen Macdonald DO Collected: 06/18/2023 08:59 AM Ordering Location: Procedures Received: 06/18/2023 09:31 AM Pathologist: Thi Delvalle MD, PhD Specimens: A) - CECUM POLYP B) - ASCENDING COLON POLYP C) - TRANSVERSE COLON POLYP D) - SIGMOID COLON POLYP E) - RECTAL BIOPSY [facility] FINAL DIAGNOSISNOMS HealthcareComment on above:A. Colon, cecum, polyp, biopsy: - Features suggestive [...] giant cell reaction. - Deeper level examined. FINAL PERFORMING LABNOMS HealthcareComment on above:Diagnostic interpretation performed at [facility], [address] [place], [place] [address] CLIA# [id number] Cement Finisher Helper: José Miguel White M.D. [facility] GROSS DESCRIPTIONA. CECUM POLYPNOMS HealthcareComment on above:Received in formalin is one piece of smith, [...] 2023 3:40 PM Gross examination performed at [facility], [address] [place] [address] Specimen Type: TISSUE SPECIMEN Ordering Facility: [facility] Address: [address] [place] [address] Original Ordering Provider: HARLEEN Gonzalez POSTPROC EVALon 71-64-6880SNIH POSTPROC EVALHNO ID: [id number] Author: YANN KUHN MD Service: Anesthesiology Author Type: Physician Type: Anesthesia Postprocedure Evaluation Filed: 06/18/2023 09:58 Note Text: POST ANESTHESIA EVALUATION NOTE : 1955 Procedure Summary Date: 06/18/23 Room / Location: Procedures Anesthesia Start: 0849 Anesthesia Stop: 918 Procedure: COLONOSCOPY SCREENING Diagnosis: History of colon polyps (High risk colon cancer surveillance: Personal history of colonic polyps) Scheduled Providers: Harleen Macdonald DO; Leona Rendon APRN.HYDRAULIC RUBBISH COMPACTOR MECHANIC; Yann Kuhn MD; Abby Peoples RN Responsible [...] June 18, 2023 TIME: 9:57 AM CSN: [id number] [facility] PRE-OPon 97-94-5812YLBI PRE-OPHNO ID: [id number] Author: YANN KUHN MD Service: Anesthesiology Author Type: Physician Type: Anesthesia Preprocedure Evaluation Filed: 06/18/2023 08:20 Note Text: ANESTHESIOLOGY DAY OF SURGERY NOTE : 1955 Procedure Information Date/Time: 06/18/23 0900 Scheduled providers: Harleen Macdonald DO; Leona Rendon APRN.HYDRAULIC RUBBISH COMPACTOR MECHANIC; Yann Kuhn MD; Abby Peoples RN Procedure: COLONOSCOPY SCREENING Location: Procedures Estimated body mass index is 48.5 kg/m? as calculated from the following: Height as of this encounter: 172.7 cm (5' 8 ). Weight as of this encounter: 144.7 kg (319 lb). Most recent hematocrit and potassium results: No results found for this basename: HCT,HEMATOCRIT,K,POTASSIUM Relevant Problems CARDIO (+) Chronic atrial fibrillation [...] BP 132/83 06/18/23 0749 Pulse Resp 22 06/18/2349 Temp 36.3 ?C (97.3 ?F) 06/18/23748 SpO2 95 % 06/18/23748 Outpatient Medications as of 06/18/2023 Medication Sig [...] by mouth two times a day. - multivit-minerals/folic acid (CENTRUM ADULTS ORAL) Centrum Facility-Administered Medications [...] June 18, 2023 TIME: 8:19 AM CSN: [id number] HospitalCOLONOSCOPYon 53-77-2838[facility] Patient Name: Hortensia Bates Procedure Date: 06/18/2023 8:48 AM Date of : 1955 Admit Type: Outpatient Age: 67 Room: [place] [address] Gender: Female Note Status: Finalized Attending MD: Harleen Macdonald DO, [id number] Procedure: Colonoscopy Indications: High risk colon cancer [...] referring physician. Procedure Code(s): --- Professional --- 98581, Colonoscopy, flexible; with biopsy, single (more content not included)...CCFRadiology, Radiologist, - 06/18/2023 [facility] Gastrointestinal Endoscopy Patient Name: Hortensia Bates Procedure Date: 06/18/2023 8:48 AM Date of : 1955 Admit Type: Outpatient Age: 67 Room: [place] [address] Gender: Female Note Status: Finalized Attending MD: Harleen Macdonald DO, [id number] Procedure: Colonoscopy Indications: High risk colon cancer [...] referring physician. Procedure Code(s): --- Professional --- 55370, Colonoscopy, flexible; with biopsy, single or multiple [...] or abscess without bleeding CPT copyright 2020 [employer]. All rights reserved. The codes documented in this report are preliminary and upon concrete stone fabricator review may be revised to meet current compliance requirements. Attending Participation: I personally performed the entire procedure. Scope In: 8:53:53 AM Scope Out: 9:15:29 AM DO Harleen Hurd DO 06/18/2023 9:19:27 AM This report has been signed electronically by Harleen Macdonald DO Number of Addenda: 0 Note Initiated On: 06/18/2023 8:48 AM Estimated Blood Loss: Estimated blood lo (more content not included)...NOMS HealthcareRadiology Study observation (narrative)NOMS HealthcareCOLONOSCOPYOrdered By: Radiologist Radiology on 38-31-0787BEGP [facility] Work Phone: cOLONOSCOPY SCREENINGon 75-54-1754Tlbhkroqr Clinic Colonoscopyon [id number] Patient Name: Hortensia Bates Procedure Date: 06/18/2023 8:48 AM Date of : 1955 Admit Type: Outpatient Age: 67 Room: [place] [address] Gender: Female Note Status: Finalized Attending MD: Harleen Macdonald DO, [id number] Procedure: Colonoscopy Indications: High risk colon cancer [...] referring physician. Procedure Code(s): --- Professional --- 94467, Colonoscopy, flexible; with biopsy, single or multiple [...] or abscess without bleeding CPT copyright 2020 [employer]. All rights reserved. The codes documented in this report are preliminary and upon concrete stone fabricator review may be revised to meet current compliance requirements. Attending Participation: I personally performed the entire procedure. Scope In: 8:53:53 AM Scope Out: 9:15:29 AM DO Harleen Hurd DO 06/18/2023 9:19:27 AM This report has been signed electronically by Harleen Macdonald DO Number of Addenda: 0 Note Initiated On: 06/18/2023 8:48 AM Estimated Blood Loss: Estimated blood loss was minimal.NormalAvon HospitalGLUCOSE, BLOOD (POC)on 44-94-6358Armddjk [Mass/Vol]107 mg/uGLmrygvve81 - 99 mg/dLSuburban Community Hospital & [facility] HISTORY PHYSICALon 91-63-3832ATKTMUJ PHYSICALHNO ID: [id number] Author: HARLEEN MACDONALD DO Service: Gastroenterology Author [...] Plan: MAC Additional Comments: None Harleen Macdonald Yared HospitalSURGICAL PATHOLOGYon [id number] REPORT [facility]ow[facility] County HospitalComment on above:Order Comment: Specimen Type: TISSUE SPECIMEN Ordering Facility: [facility] Address: [address] [place], [place] [address]Result Comment: Surgical Pathology Report Case: [id number] Authorizing Provider: Harleen Macdonald DO Collected: 06/18/2023 08:59 AM Ordering Location: Procedures Received: 06/18/2023 09:31 AM Pathologist: Thi Delvalle MD, PhD Specimens: A) - CECUM POLYP B) - ASCENDING COLON POLYP C) - TRANSVERSE COLON POLYP D) - SIGMOID COLON POLYP E) - RECTAL BIOPSYPerformed By: #### S #### [facility] [place] [id number] [address] [place], [place] [address]FINAL DIAGNOSISNoThe Valley Hospital HospitalComment on above:Order Comment: Specimen Type: TISSUE SPECIMEN Ordering Facility: [facility] Address: [address] [place] [address] Comment: A. Colon, cecum, polyp, biopsy: - Features [...] examined. Performed By: #### S #### [facility] [place] [id number] [address] STATES OF AMERICAFINAL PERFORMING LABNormal Mable HospitalComment on above:Order Comment: Specimen Type: TISSUE SPECIMEN Ordering Facility: [facility] Address: [address] [place], [place] [address]Result Comment: Diagnostic interpretation performed at [facility], [address] [place], [place] [address] CLIA# [id number] Cement Finisher Helper: José Miguel White M.D.Performed By: #### S #### [facility] CLIA [id number] [address] [place] [address] OF AMERICAGROSS DESCRIPTIONA. CECUM POLYPNormalAvon HospitalComment on above:Order Comment: Specimen Type: TISSUE SPECIMEN Ordering Facility: [facility] Address: [address] [place], [place] [address]Result Comment: Received in formalin is one piece of smith, soft tissue measuring 0.5 x 0.2 x 0.1 cm.Totally submitted in one cassette. B. ASCENDING COLON [...] 2023 3:40 PM Gross examination performed at [facility], [address] [place], [place] [address]Performed By: #### S #### [facility] CLIA [id number] [address] [place] [address] OF AMERICACNPNon [id number] Telephone (Cyber InternsAV) HORTENSIA BATES ([id number]) 1955 F Date Time Provider Department 06/04/23 HARLEEN MACDONALD During your visit today, we recorded the following information about you: Naila Fleming OCCA 06/04/2023 11:19 AM Signed Contacted and spoke with patient regarding prep instructions for upcoming procedure. Answered all patient's questions. Patient demonstrated understanding and was instructed to call [phone] and ask for nurse triage line for [...] 20 mins and then resume. Please call [phone] and ask for Nurse Triage with any [...] and then resume. THANK YOU! Please call [phone] and ask for nurse triage line if you have any questions [facility] Jared Mcneil - 2nd floor (Surgery Center) [address] [place] [address] Allergies As of Date: 06/04/2023 Noted Allergy Reaction SPIRONOLACTONE 04/29/2023 4 - Hives THIAZIDES 05/06/2022 4 - Hives Date Reviewed: Never Reviewed Reason for Visit: Pre-Op Teaching [134] Prescriptions as of 06/04/2023 - apixaban (ELIQUIS) 5 mg tab(s) Take 5 mg by mouth two times a day. - levothyroxine (SYNTHROID) 100 mcg tablet Levothyroxine Sodium - metFORMIN ER (more content not included)...NormalWvumedicine [facility] CNOVon 69-46-6959IUGGEfzurc Visit (GASTAV) HORTENSIA BATES ([id number]) 1955 F Date Time Provider Department 04/29/23 [...] If you do not have a responsible sulky driver (family member or friend) with you to take you home, your exam cannot be done with sedation and will be cancelled. Please bring a list of all of your current medications, including any Issw-zeb-Mjhbiex medications with you. Medications If you take [...] Compliant: Consultation requested by Dr. Kaila Goldstein, PRECAST WORKER.AUTO SUSPENSION AND STEERING MECHANIC for an opinion regarding hx of colon polyps. My final recommendations will be communicated back to the requesting physician by way of shared Medical record or letter to requesting physician via US mail. HPI: Hortensia Batse is a 67 year old female with PMH significant for hypo (more content not included)...NormalMemorial Health Systemon 70-65-3494DVJVLbztwybst ([facility]) HORTENSIA BATES ([id number]) 1955 F Date Time Provider Department 04/21/23 [...] (None) Encounter Status:Closed by ELLY ÁLVAREZ on 04/21/23NoOhioHealth Van Wert HospitalGlucose Glucometer (BldC) [Mass/Vol]Ordered By: Kaila Goldstein on 54-36-1845Yrcuggc [Mass/Vol]118 mg/dLTrihealth Good Samaritan HospitalComment on above:Random Glucose Reference Range is dependent on time and content of last meal. Glucose of more than 200 mg/dL in a nonstressed, ambulatory subject supports the diagnosis of Diabetes Mellitus.Physician Referralon 03-13-2023 Physician [id number]#1.00TIFFNormalAultman HospitalCB AUTO DIFFon 08-13-5966JIOZ #0.1 103/ulNormal0.0-0.1The [facility] HospitalComment on above:Performed By: #### CBC #### [facility] [address] [address] [address] Yenny Mckeonphils/100 WBC (Bld)0.7 %Normal0.2-2.0[facility] Comment on above:Performed By: #### CBC #### [facility] [address] [address] [address] Yenny Vasquez #0.2 103/ulNormal0.0-0.7The [facility] HospitalComment on above: Performed By: #### CBC #### [facility] [address] [place] [address] Dr. Yenny Vargasosinophils/100 WBC (Bld)2.7 %Normal0.9-7.0The [facility] Comment on above:Performed By: #### CBC #### [facility] [address] [place] [address] Dr. Yenny Vargasrythrocyte distribution width (RBC) [Ratio]14.6 %Zddpwu70.0-15.0 The [facility] HospitalComment on above:Performed By: #### CBC #### [facility] [address] [place] [address] Dr. Yenny HuertasHematocrit (Bld) [Volume fraction]41.4 %Kglfwn50.0-48.0The [facility] HospitalComment on above:Performed By: #### CBC #### [facility] [address] [place] [address] Dr. Yenny HuertasHemoglobin (Bld) [Mass/Vol]13.6 g/mJNgslce89.0-16.0The [facility] HospitalComment on above:Performed By: #### CBC #### [facility] [address] [place] [address] Dr. Yenny Ellis #0.03 10e3/ulNormal0.00-0.03The [facility] HospitalComment on above:Performed By: #### CBC #### [facility] [address] [place] [address] Dr. Yenny Ellis %0.3 %Normal0.0-0.5The [facility] HospitalComment on above: Performed By: #### CBC #### [facility] [address] [place] [address] Dr. Yenny SoriaH #3.3 103/ulNormal1.2-3.8The [facility] HospitalComment on above:Performed By: #### CBC #### [facility] [address] [place] [address] Dr. Yenny Chaidezmphocytes/100 WBC (Bld)36.3 %Ydsifi80.5-60.0The [facility] HospitalComment on above:Performed By: #### CBC #### [facility] [address] [place] [address] Dr. Yenny Antoine DIFF REQNONormalThe [facility] HospitalComment on above: Performed By: #### CBC #### [facility] [address] [place] [address] Dr. Yenny Shankar (RBC) [Entitic mass]29.1 kwTdcvch56.7-34.0The [facility] HospitalComment on above:Performed By: #### CBC #### [facility] [address] [place] [address] Dr. Yenny Shankar (RBC) [Mass/Vol]32.9 g/kTXokcae94.9-35.2The [facility] HospitalComment on above:Performed By: #### CBC #### [facility] [address] [place] [address] Dr. Yenny Shankar (RBC) [Entitic vol]88.7 mNDgtbgk28.0-99.0The [facility] HospitalComment on above:Performed By: #### CBC #### [facility] [address] [place] [address] Dr. Yenny Cristina #0.7 103/ulNormal0.3-0.8The [facility] HospitalComment on above:Performed By: #### CBC #### [facility] [address] [place] [address] Dr. Yenny Ballesterosocytes/100 WBC (Bld)7.7 %Normal1.7-12.0The [facility] Comment on above:Performed By: #### CBC #### [facility] [address] [place] [address] Dr. Yenny Evans #4.7 103/ulNormal1.4-6.5The [facility] HospitalComment on above:Performed By: #### CBC #### [facility] [address] [address] [address] Yenny Conwayutrophils/100 WBC (Bld)52.3 %Wurrnx46.0-75.0[facility] on above:Performed By: #### CBC #### [facility] [address] [place] [address] Dr. Yenny HuertasPlatelet mean volume (Bld) [Entitic vol]9.9 fLNormal9.5-13.5The [facility] HospitalComascension genesys hospital on above:Performed By: #### CBC #### [facility] [address] [place] [address] Dr. Yenny HuertasPLT285 103/opOujqnl069-038You [facility] on above: Performed By: #### CBC #### [facility] [address] [place] [address] Dr. Yenny HuertasRBC4.67 106/ulNormal4.20-5.40The [facility] on above:Performed By: #### CBC #### [facility] [address] [place] [address] Dr. Yenny HuertasWBC9.0 103/ulNormal4.0-11.0The [facility] on above: Performed By: #### CBC #### [facility] [address] [place] [address] Dr. Yenny HuertasFREE T4on 36-87-4586Tiwk T4 [Mass/Vol]1.04 ng/dLNormal0.76-1.46 [facility] on above:Performed By: #### FT4 #### [facility] [address] [place] [address] Dr. Yenny HuertasGLYCOHEMOGLOBIN A1Con 85-51-9332DCJ RECOMMENDATIONSEE BELOWNormal [facility] on above:Result Comment: ADA RECOMMENDED LIMIT 4.0 - 6.0 ADA THERAPEUTIC TARGET < 7.0 ACTION SUGGESTED > 7.0Performed By: #### A1C #### [facility] [address] [place] [address] Dr. Yilan ChangGlucose [Mass/Vol]126 mg/dLNormalThe [facility] HospitalComment on above:Performed By: #### A1C #### [facility] [address] [place] [address] Dr. Yenny HuertasHbA1c (Bld) [Mass fraction]6.0 %Normal4.5-6.2The [facility] HospitalComment on above:Performed By: #### A1C #### [facility] [address] [place] [address] Dr. Yenny CrowellROALBUMIN, RAND URon 54-28-7823tRXW<1.3Normal<=30.0The [facility] HospitalComment on above:Performed By: #### MALBR #### [facility] [address] [place] [address] Dr. Yenny HuertasPROF 14(COMP METB)on 93-53-7142Naieenw [Mass/Vol]3.5 g/dLNormal 3.4-5.0The [facility] HospitalComment on above:Performed By: #### TSH, CMP #### [facility] [address] [place] [address] Dr. Yenny HuertasAlbumin/Globulin [Mass ratio]0.9 {ratio}NormalThe [facility] HospitalComascension genesys hospital on above:Performed By: #### TSH, CMP #### [facility] [address] [place] [address] Dr. Yenny BurgessP [Catalytic activity/Vol]53 U/AWnobrb51-968Fcc [facility] HospitalComascension genesys hospital on above:Performed By: #### TSH, CMP #### [facility] [address] [place] [address] Dr. Yenny Mitchell [Catalytic activity/Vol]30 U/KPjlkrn14-39Hik [facility] HospitalComasc[facility] genes[facility] hospital on above:Performed By: #### TSH, CMP #### [facility] [address] [place] [address] Dr. Yenny Duarte gap [Moles/Vol]9.6 mmol/LNormalThe [facility] HospitalComment on above:Performed By: #### TSH, CMP #### [facility] [address] [address] [address] Yenny HuertasAST [Catalytic activity/Vol]17 U/NEwitnr62-21Wfi [facility] HospitalComment on above:Performed By: #### TSH, CMP #### [facility] [address] [address] [address] Yenny HuertasBilirubin [Mass/Vol]0.6 mg/dLNormal0.2-1.0The [facility] Comment on above:Performed By: #### TSH, CMP #### [facility] [address] [place] [address] Dr. Yenny HuertasCalcium [Mass/Vol]9.1 mg/dLNormal8.5-10.1The [facility] Comment on above:Performed By: #### TSH, CMP #### [facility] [address] [place] [address] Dr. Yenny HuertasChloride [Moles/Vol]106 mmol/HHteqtc08-229Rug [facility] Comment on above:Performed By: #### TSH, CMP #### [facility] [address] [place] [address] Dr. Yenny HuertasCO2 [Moles/Vol]26.4 mmol/MLkqifs47.0-32.0The [facility] Comment on above:Performed By: #### TSH, CMP #### [facility] [address] [place] [address] Dr. Yenny HuertasCreatinine [Mass/Vol]0.84 mg/dLNormal0.55-1.02The [facility] HospitalComment on above:Performed By: #### TSH, CMP #### [facility] [address] [place] [address] Dr. Yenny VargasGFR-AF DJIBOUTIAN>60Normal>=60The [facility] HospitalComment on above:Performed By: #### TSH, CMP #### [facility] [address] [place] [address] Dr. Yenny VargasGFR-NON AF DJIBOUTIAN>60Normal>=60The [facility] HospitalComment on above:Performed By: #### TSH, CMP #### [facility] [address] [address] [address] Yenny HuertasGlobulin (S) [Mass/Vol]3.9 g/dLNormEast Ohio Regional HospitalComment on above:Performed By: #### TSH, CMP #### [facility] [address] [address] [address] Yenny HuertasGlucose [Mass/Vol]119 mg/dLCritically eagc80-686Ebu [facility] HospitalComment on above:Performed By: #### TSH, CMP #### [facility] [address] [address] [address] Yenny HuertasPotassium [Moles/Vol]4.0 mmol/LNormal3.5-5.1The [facility] Comment on above:Performed By: #### TSH, CMP #### [facility] [address] [address] [address] Yenny HuertasProtein [Mass/Vol]7.4 g/dLNormal6.4-8.2The [facility] Comment on above:Performed By: #### TSH, CMP #### [facility] [address] [address] [address] Yenny HuertasSodium [Moles/Vol]138 mmol/THtcawi473-513Ycg [facility] Comment on above:Performed By: #### TSH, CMP #### [facility] [address] [address] [address] Yenny HuertsaUrea nitrogen [Mass/Vol]21.0 mg/dLCritically high7.0-18.0The [facility] HospitalComment on above:Performed By: #### TSH, CMP #### [facility] [address] [place] [address] Dr. Yenny HuertasUrea nitrogen/Creatinine [Mass ratio]25.0 mg/mgNoCleveland Clinic Akron General Lodi HospitalComment on above:Performed By: #### TSH, CMP #### [facility] [address] [place] [address] Dr. Yenny Hwang 25-13-1969HLL8.836 uIU/mLCritically high0.358-3.740The [facility] HospitalComment on above:Performed By: #### TSH, CMP #### [facility] [address] [address] [address] Yenny Hodges RANDOM W/MICROSCOPICon 12-69-1214ZTSOOSOUCNSCFCbhumeauVJLU SEENRiverview Health InstituteComment on above:Performed By: #### UAMIC #### [facility] [address] [address] [address] Yenny HuertasBilirubin Ql (U)NegativeNormalNEGATIVEMercy Health on above:Performed By: #### UAMIC #### [facility] [address] [address] [address] Yenny HuertasCASTNONE SEENNormalNONE SEENSheltering Arms Hospital on above:Performed By: #### UAMIC #### [facility] [address] [address] [address] Yenny HuertasClarity (U)CLEARNormalCLEARRiverview Health InstituteComment on above: Performed By: #### UAMIC #### [facility] [address] [address] [address] Yenny HuertasColor (U)LT. YELLOWNormalYELLOWRiverview Health InstituteComment on above:Performed By: #### UAMIC #### [facility] [address] [address] [address] Yenny HuertasCrystals LM Nom (Urine sed)NONE SEENNormalNONE SEENRiverview Health InstituteComment on above:Performed By: #### UAMIC #### [facility] [address] [address] [address] Ramon ChangEpithelial cells LM Ql (Urine sed)MODERATEAbnormalNONE SEEN /RARE The [facility] HospitalComascension genesys hospital on above:Performed By: #### UAMIC #### [facility] [address] [address] [address] Yenny HuertasGlucose Ql (U)NegativeNormalNEGATIVERiverview Health InstituteComment on above:Performed By: #### UAMIC #### [facility] [address] [address] [address] Yenyn HuertasHemoglobin Ql (U)NegativeNormalNEGATIVERiverview Health Institute Comment on above:Performed By: #### UAMIC #### [facility] [address] [address] [address] Yenny HuertasKetones Ql (U)NegativeNormalNEGATIVERiverview Health InstituteComment on above:Performed By: #### UAMIC #### [facility] [address] [place] [address] Dr. Yenny HuertasLEUKOCYTESTRACEAbnormalNEGATIVERiverview Health InstituteComment on above:Performed By: #### UAMIC #### [facility] [address] [place] [address] Dr. Yenny HuertasMUCOUSNONE SEENNormalNONE SEENRiverview Health InstituteComment on above:Performed By: #### UAMIC #### [facility] [address] [place] [address] Dr. Yenny HuertasNitrite Ql (U)NegativeNormalNEGATIVERiverview Health InstituteComment on above:Performed By: #### UAMIC #### [facility] [address] [place] [address] Dr. Yenny HuertaspH (U)5.0 [pH]Normal5-9Riverview Health InstituteComment on above: Performed By: #### UAMIC #### [facility] [address] [place] [address] Dr. Yenny HuertasLcojvVUJ0-9Hhxjjr5-8Lky Bellevue HospitalComment on above:Performed By: #### UAMIC #### [facility] [address] [place] [address] Dr. Yenny HuertasSPEC GRAVITY>=1.191Uharbzau8.005-<=1.025[facility] Comment on above:Performed By: #### UAMIC #### [facility] [address] [place] [address] Dr. Yenny Hodges PROTEINNegativeNormalNEGATIVE/ TRACEThe [facility] Comment on above:Performed By: #### UAMIC #### [facility] [address] [place] [address] Dr. Yenny Matamoros Qn (U)0.2 {Mila'U}/dLNormal0.2 - 1.0The [facility] on above:Performed By: #### UAMIC #### [facility] [address] [address] [address] Yenny HuertasWBC2-5AbnormalNONE SEENThe [facility] on above: Performed By: #### UAMIC #### [facility] [address] [address] [address] Yenny HuertasCovid-19 PCR (CVDTB)on 80-72-2668BPXV-CoV-2 (COVID-19) RNA JAS+probe Ql (Unsp spec)DetectedCritically abnormalNOT DETECTEDThe [facility] on above:Result Comment: This test is not yet approved or cleared by the [place] FDA. When there are no FDA-approved or cleared tests available, and other criteria are met, FDA can make tests available under an emergency access mechanism called an Emergency Use Authorization (EUA). The EUA for this test is supported by the [place] of Health and Human Service's declaration that circumstances exist to justify the emergency use of in vitro diagnostics for the detection and/or diagnosis of the virusthat causes COVID-19. This EUA will remain in effect for the duration of the COVID-19 declaration ju stifying emergency of IVDs, unless it is terminated or revoked by the FDA (after which the test mayno longer be used).Performed By: #### CVDTBH #### [facility] [address] [place] [address] Dr. Yenny HuertasINFLUENZA A AND B AGon 98-69-5840MUGDRASXXQUUX [facility] on above:Result Comment: Negative for Flu A protein angiten. Infection due to Flu A cannot be ruled out. FluA angiten in the sample may be below the detection limit of the test.Performed By: #### INFLUAB #### [facility] [address] [place] [address] Dr. Yenny HuertasINFLUBNEGHSLUIS ALFREDO [facility] on above: Result Comment: Negative for Flu B protein antigen. Infection due to Flu B cannot be ruled out. FluB antigen in the sample may be below the detection limit of the test.Performed By: #### INFLUAB #### [facility] [address] [place] [address] Dr. Yenny Castellano AGNegativeNormalNEGATIVE SEE COMMENTThe [facility] on above:Performed By: #### INFLUAB #### [facility] [address] [place] [address] Dr. Yenny Shah AGNegativeNormalNEGATIVE SEE COMMENTThe [facility] on above:Performed By: #### INFLUAB #### [facility] [address] [place] [address] Dr. Yenny HuertasINTERNAL CONTROLSWithin Normal LimitsNormalWithin Normal Limits [facility] on above:Performed By: #### INFLUAB #### [facility] [address] [place] [address] Dr. Yenny HuertasGLYCOHEMOGLOBIN A1Con 08-91-7071LUM RECOMMENDATIONSEE BELOWNormal [facility] on above:Result Comment: ADA RECOMMENDED LIMIT 4.0 - 6.0 ADA THERAPEUTIC TARGET < 7.0 ACTION SUGGESTED > 7.0Performed By: #### MALBR #### [facility] [address] [place] [address] Dr. Yenny HuertasGlucose [Mass/Vol]117 mg/dLNormalThe [facility] on above:Performed By: #### MALBR #### [facility] [address] [place] [address] Dr. Yenny HuertasHbA1c (Bld) [Mass fraction]5.7 %Normal4.5-6.2The [facility] on above:Performed By: #### MALBR #### [facility] [address] [place] [address] Dr. Yenny HuertasURIC ACID SERUMon 74-88-4111Hdgad [Mass/Vol]4.8 mg/dLNormal 2.6-6.0The Lindsay HospitalComment on above:Performed By: #### URIC #### [facility] [address] [address] [address] Ramon ChangEndoscopy Reporton 29-25-9308Cdnbnqhxs ReportMR#: [id number] [facility] Pt. Name: Hortensia Bates Surgery Date: 11/02/2020 [...] Patrick/Kirk Aranda MD Date Trans: 11/03/2020 08:22 A/jorgeo DN_JN:[id number] [facility] GL[facility]SE [facility] on [id number] [Mass/Vol]90 mg/xBYrenem03-379Hpo [facility] ShawComment on above:Performed By: #### [id number] #### [facility] [address] [place] [address], USABASIC METABOLIC PANELon 81-62-3243Plvvgnn [Mass/Vol]7.9 mg/dLLow8.6-10.3The [facility] ShawComment on above:Order Comment: No: Do not add to previous drawPerformed By: #### [id number] #### [facility] [address] [place] [address], USAChloride [Moles/Vol]107 mmol/MKubkmd50-085Tyq [facility] ShawComment on above:Order Comment: No: Do not add to previous drawPerformed By: #### [id number] #### [facility] [address] [place] [address], USACO2 [Moles/Vol]24 mmol/IZdxytk30-48Ipl [facility] ShawComment on above:Order Comment: No: Do not add to previous draw Performed By: #### [id number] #### [facility] [address] [place] [address], USACreatinine [Mass/Vol]0.62 mg/dLNormal0.60-1.20The [facility] ShawComment on above:Order Comment: No: Do not add to previous drawPerformed By: #### [id number] #### [facility] [address] [place] [address], USAGFR/1.73 sq M.predicted among blacks MDRD (S/P/Bld) [Vol rate/Area]mL/min/{1.73_m2}Normal>60The [facility] Comment on above:Order Comment: No: Do not add to previous drawPerformed By: #### [id number] #### [facility] [address] [place] [address], USAGFR/1.73 sq M.predicted among non-blacks MDRD (S/P/Bld) [Vol rate/Area]mL/min/{1.73_m2}Normal>60The [facility] Comment on above:Order Comment: No: Do not add to previous drawPerformed By: #### [id number] #### [facility] [address] [place] [address], USAGlucose [Mass/Vol]106 mg/vIMixq81-602Hky [facility] ShawComment on above:Order Comment: No: Do not add to previous drawPerformed By: #### [id number] #### [facility] [address] [address], USAPotassium [Moles/Vol]3.9 mmol/LNormal3.5-5.1The [facility] ShawComment on above:Order Comment: No: Do not add to previous drawPerformed By: #### [id number] #### [facility] [address] [place] [address], USASodium [Moles/Vol]137 mmol/FSfzvup270-030Skq [facility] ShawComment on above:Order Comment: No: Do not add to previous drawPerformed By: #### [id number] #### [facility] [address] [place] [address], USAUrea nitrogen [Mass/Vol]11 mg/dLNormal7-25The [facility] ShawComment on above:Order Comment: No: Do not add to previous drawPerformed By: #### [id number] #### [facility] [address] [place] [address], [facility] COMPLETE BLOOD COUNTon 84-38-4351Ywvffdruvvm distribution width (RBC) [Ratio]14.1 %Vhgkta43.5-15.0The [facility] ShawComment on above:Order Comment: No: Do not add to previous draw Performed By: #### [id number] #### [facility] [address] [place] [address], USAHematocrit (Bld) [Volume fraction]37.8 %Mfhrkv47.0-45.0The [facility] ShawComment on above:Order Comment: No: Do not add to previous drawPerformed By: #### [id number] #### [facility] [address] [place] [address], USAHemoglobin (Bld) [Mass/Vol]12.2 g/vPAvukwg27.0-15.0The [facility] ShawComment on above:Order Comment: No: Do not add to previous drawPerformed By: #### 63211 #### [facility] [address] [place] [address], [facility] (RBC) [Entitic mass]29.6 hyFlketm62.0-33.0The [facility] ShawComment on above:Order Comment: No: Do not add to previous drawPerformed By: #### 33214 #### [facility] [address] [place] [address], [facility] SERVICESMCHC (RBC) [Mass/Vol]32.3 g/cCDtndob76.0-35.0The [facility] ShawComment on above:Order Comment: No: Do not add to previous drawPerformed By: #### [id number] #### [facility] [address] [place] [address], [facility] (RBC) [Entitic vol]91.7 uHJtqdab68.0-98.0The [facility] ShawComment on above:Order Comment: No: Do not add to previous drawPerformed By: #### [id number] #### [facility] [address] [place] [address], USANucleated RBC/100 WBC (Bld) [Ratio]0 %Normal0-0The [facility] ShawComment on above:Order Comment: No: Do not add to previous drawPerformed By: #### [id number] #### [facility] [address] [place] [address], USAPLAT JGV149 10*3/qNQevczn515-662Hwo [facility] ShawComment on above:Order Comment: No: Do not add to previous draw Performed By: #### [id number] #### [facility] [address] [place] [address], USARBC (Bld) [#/Vol]4.12 10*6/uLNormal3.80-5.00The [facility] ShawComment on above:Order Comment: No: Do not add to previous drawPerformed By: #### [id number] #### [facility] [address] [place] [address], USAWBC (Bld) [#/Vol]15.14 10*3/uLHigh4.00-10.60The [facility] ShawComment on above:Order Comment: No: Do not add to previous drawPerformed By: #### 42360 #### [facility] [address] [place] [address], USAMAGNESIUM BLOODon 43-05-2756Nfyjqdnfr [Mass/Vol]1.7 mg/dL Low1.9-2.7The [facility] ShawComment on above:Order Comment: No: Do not add to previous drawPerformed By: #### 99584 #### [facility] [address] [place] [address], USAPOC GLUCOSE LABon 07-02-6282Oluxrca [Mass/Vol]93 mg/dL Viepek66-450Tan [facility] ShawComment on above:Performed By: #### 34206 #### [facility] [address] [place] [address], USAGlucose [Mass/Vol]101 mg/xMGzwy87-816Xgo [facility] ShawComment on above:Performed By: #### [id number] #### [facility] [address] [place] [address], USACardiovascular Lab Reporton [id number] Lab ReportUnDiley Ridge Medical Center Patient Name: Hortensia Bates [facility] MR #: [id number] Physician: Suleiman Salamanca MD Department of Service Date: 07/26/2020 Medicine Birthdate: 1955 Division of Room #: 3AB [id number] Cardiology Adult Cardiovascular Services [address] [place], [place] [address] Cardiovascular Laboratory Report ATRIAL FIBRILLATION ABLATION PROCEDURE [...] mildly enlarged. Esophagus was mapped using the EXTRABANCAUND 3D mapping software. Double transseptal access technique [...] hemodynamic instability noted fol (more content not included)...NormalThe [facility] GLUCOSE LABon 16-31-3432Ughatcj [Mass/Vol]135 mg/iDZyca75-738Jxf [facility] ShawComment on above:Performed By: #### 61936 ####[facility] [facility] [place] [address], [facility] Glucose [Mass/Vol]134 mg/dZApty81-213Dra [facility] Comment on above:Performed By: #### 39940 ####[facility] [facility] [place] [address], [facility] HEALTH SERVICESGlucose [Mass/Vol]106 mg/dLHigh 70-100The [facility] ShawComment on above:Performed By: #### 84053 ####[facility] [facility] [place] [address], USAEndoscopy Reporton [id number] ReportMR#: [id number] [facility] Pt. Name: Hortensia Bates Surgery Date: 04/23/2020 Room #: 3AB [id number] Date of : 1955 PROCEDURE NOTE ATTENDING: [...] snare, measured 3 mm and 5 mm. Swsnahaq-bf-sbxzgc sigmoid diverticulosis. 3. Poor colon preparation. RECOMMENDATIONS: [...] Sanchez M.D. Date Trans: 04/23/2020 10:38 A/lazarus DN_JN:[id number] [facility]PO GLUCOSE LAB on 46-03-2998Bxcxqfe [Mass/Vol]116 mg/lOKfmk31-547Ycu [facility] ShawComment on above:Performed By: #### 27732 #### [facility] [address] [place] [address], USAGlucose [Mass/Vol]98 mg/nSFtbmht14-486Ffi [facility] ShawComment on above:Performed By: #### 46615 #### [facility] [address] [place] [address], USAGlucose [Mass/Vol]89 mg/qRBdgeek58-555Lpq [facility] ShawComment on above:Performed By: #### 10278 ####[facility] [facility] [address], [facility] GLUCOSE LABon 41-78-1436Xxzvblg [Mass/Vol]93 mg/oBGpduxy46-604Vdg [facility] ShawComment on above:Performed By: #### 67024 #### [facility] [address] [place] [address], USAGlucose [Mass/Vol]99 mg/eKXqrsly83-206Mta [facility] ShawComment on above:Performed By: #### 57556 #### [facility] [address] [place] [address], USAGlucose [Mass/Vol]109 mg/zQDwif42-371Ntn [facility] ShawComment on above:Performed By: #### 04433 #### [facility] [address] [place] [address], [facility]*SARS-CoV-2 COVID-19on 27-87-7531Isxbsujm ReportNoAdena Health SystemComment on above:Result Comment: Specimen: OROPHARYNGEAL Collected: 04/21/2020 11:17 Status: Final Last Updated: 04/22/2020 12:41 COVID-19 (Final) Not Detected The [employer] SARS-CoV-2 assay is a real-time (rt) reverse transcriptase (RT) polymerase chain reaction (PCR) test intended for the [employer] system. The SARS-CoV-2 primer and probe sets are designed to detect RNA from SARS-CoV-2 in a nasopharyngeal (SORORITY MOTHER) or oropharyngeal (OP) swab from patients with signs and symptoms of infection who are suspected of COVID-19. Results are for the identification of SARS-CoV-2 RNA. The SARS-CoV-2 RNA is generally detectable in a nasopharyngeal or oropharyngeal swab during the acute phase of infection. The [employer] SARS-CoV-2 assay is intended for use by qualified and trained clinical laboratory personnel specifically instructed and trained in the techniques of real-time PCR and in vitro diagnostic procedures. The [employer] SARS-CoV-2 assay is only for use under the Food and Drug Administration Emergency Use Authorization. Testing is limited to laboratories certified under the Clinical Laboratory Improvement Amendments of 1988 (CLIA), 42 U.S.C. 263a, to perform high complexity tests.Performed By: #### 71534 #### [facility] [address] [place] [address], [facility] SERVICESPO GLUCOSE LABon 77-06-1244Vvzckao [Mass/Vol]105 mg/dLHigh 70-100The [facility] ShawComment on above:Performed By: #### 59743 #### [facility] [address] [place] [address], USAGlucose [Mass/Vol]97 mg/vCLimriu74-687Poo [facility] ShawComment on above:Performed By: #### 99198 ####[facility] [place] [address], USAGlucose [Mass/Vol] 94 mg/kEJfghkn34-935Dmh [facility] ShawComment on above: Performed By: #### 25658 ####[facility] [place] [address], USAGlucose [Mass/Vol]98 mg/tIBjpjpg53-152Fop [facility] ShawComment on above:Performed By: #### 80983 ####[facility] [facility] [place] [address], USAPROTHROMBIN TIME on 82-14-3606GYK Coag (PPP) [Relative time]1.04 {INR}Normal0.91-1.16The [facility] ShawComment on above:Order Comment: No: Do not add to previous drawResult Comment: ACCCP RECOMMENDED INR FOR WARFARIN THERAPY ------- CONDITION INR PROPHYLAXIS OF VENOUS THROMBOSIS 2-3 (HIGH-RISK SURGERY) TREATMENT OF VENOUS THROMBOSIS 2-3 TREATMENT OF PULMONARY EMBOLISM 2-3 PREVENTION OF SYSTEMIC EMBOLISM: 2-3 ACUTE MYOCARDIAL INFARCTION TISSUE HEART VALVES VALVULAR HEART DISEASE ATRIAL FIBRILLATION RECURRENT SYSTEMIC EMBOLISM MECHANICAL HEART VALVE 2.5-3.5 FROM: ORAL ANTICOAGULANTS. MECHANISM OF ACTION, CLINICAL EFFECTIVENESS, AND OPTIMAL THERAPEUTIC RANGE. CHEST 1995;108:231S-246S.Performed By: #### 54641, 51728 #### [facility] [address] [facility] [place] [address], USAPT Coag (PPP) [Time]13.6 rBiifqw11.3-14.8The [facility] ShawComment on above:Order Comment: No: Do not add to previous drawResult Comment: ALL RESULTS MUST BE INTERPRETED WITH RESPECT TO BLOOD DRAWING ARTIFACT OR DILUTION ERROR OF ANTICOAGULANT AT THE TIME OF SAMPLING.Performed By: #### 07825, 64262 #### [facility] [address] [place] [address], USABASIC METABOLIC PANELon 47-96-0946Iqzeohb [Mass/Vol]8.8 mg/dLNormal8.6-10.3The [facility] ShawComment on above:Order Comment: No: Do not add to previous drawPerformed By: #### 49258, 56967 #### [facility] [address] [place] [address], USAChloride [Moles/Vol]103 mmol/ONnbucv63-379Eib [facility] ShawComment on above:Order Comment: No: Do not add to previous drawPerformed By: #### 30602, 83345 #### [facility] [address] [place] [address], USACO2 [Moles/Vol]26 mmol/DDitfia95-09Jbg [facility] ShawComment on above:Order Comment: No: Do not add to previous draw Performed By: #### 90882, 76068 #### [facility] [address] [place] [address], USACreatinine [Mass/Vol]0.82 mg/dLNormal0.60-1.20The [facility] ShawComment on above:Order Comment: No: Do not add to previous drawPerformed By: #### 62471, 93661 #### [facility] [address] [place] [address], USAGFR/1.73 sq M.predicted among blacks MDRD (S/P/Bld) [Vol rate/Area]mL/min/{1.73_m2}Normal>60The [facility] Comment on above:Order Comment: No: Do not add to previous drawPerformed By: #### 98813, 14436 #### [facility] [address] [place] [address], USAGFR/1.73 sq M.predicted among non-blacks MDRD (S/P/Bld) [Vol rate/Area]mL/min/{1.73_m2}Normal>60The [facility] Comment on above:Order Comment: No: Do not add to previous drawPerformed By: #### 94322, 51499 #### [facility] [address] [place] [address], USAGlucose [Mass/Vol]99 mg/fJQuyije43-076Okz [facility] ShawComment on above:Order Comment: No: Do not add to previous drawPerformed By: #### 19575, 83966 #### [facility] [address] [place] [address], USAPotassium [Moles/Vol]3.8 mmol/LNormal3.5-5.1The [facility] ShawComment on above:Order Comment: No: Do not add to previous drawPerformed By: #### 52350, 18578 #### [facility] [address] [place] [address], USASodium [Moles/Vol]136 mmol/DJpmyge871-966Sbe [facility] ShawComment on above:Order Comment: No: Do not add to previous drawPerformed By: #### 61344, 71997 #### [facility] [address] [place] [address], USAUrea nitrogen [Mass/Vol]15 mg/dLNormal7-25The [facility] ShawComment on above:Order Comment: No: Do not add to previous drawPerformed By: #### 29485, 49546 #### [facility] [address] [place] [address], USAPOC GLUCOSE LABon 94-88-8187Ndssfum [Mass/Vol]109 mg/dLHigh 70-100The [facility] ShawComment on above:Performed By: #### 85873 #### [facility] [address] [place] [address], USAGlucose [Mass/Vol]95 mg/eGXrnjhe55-273Vhv [facility] ShawComment on above:Performed By: #### 55313 ####[facility] [place] [address], USAGlucose [Mass/Vol] 92 mg/wHGukofi61-227Xik [facility] ShawComment on above: Performed By: #### 84701 #### [facility] [address] [place] [address], USAGlucose [Mass/Vol]94 mg/cRTevskd54-630Gcg [facility] ShawComment on above:Performed By: #### 46716 ####[facility] [place] [address], USAHEMATOCRITon 36-60-7265Rtkxxbkcea (Bld) [Volume fraction]42.6 %Vfcwcu41.0-45.0The [facility] ShawComment on above:Order Comment: No: Do not add to previous drawPerformed By: #### 50194 #### [facility] [address] [place] [address], USAHEMOGLOBINon 86-94-3916Undjvgvnku (Bld) [Mass/Vol]13.6 g/dL Teaayg11.0-15.0The [facility] ShawComment on above:Order Comment: No: Do not add to previous drawPerformed By: #### 19523 #### [facility] [address] [place] [address], USAPOC GLUCOSE LABon 51-06-8904Czxhfre [Mass/Vol]114 mg/dLHigh 70-100The [facility] ShawComment on above:Performed By: #### 72112 ####[facility] [place] [address], USAGlucose [Mass/Vol]110 mg/bSZest87-683Atc [facility] ShawComment on above:Performed By: #### 43472 #### [facility] [address] [place] [address], [facility] SERVICESGlucose [Mass/Vol]95 mg/qAEkklhw48-930Tio [facility] ShawComment on above:Performed By: #### 68939 ####[facility] [place] [address], [facility] HE[facility] SERVICESGlucose [Mass/Vol] 89 mg/cNQecqqx09-674Raj [facility] ShawComment on above: Performed By: #### 22005 #### [facility] [address] [place] [address], [facility]*SARS-CoV-2 COVID-19on 26-19-8617Opbonvgg ReportNoAdena Health SystemComment on above:Result Comment: Specimen: OROPHARYNGEAL Collected: 04/17/2020 23:30 Status: Final Last Updated: 04/18/2020 09:00 COVID-19 (Final) Not Detected The [employer] SARS-CoV-2 assay is a real-time (rt) reverse transcriptase (RT) polymerase chain reaction (PCR) test intended for the [employer] system. The SARS-CoV-2 primer and probe sets are designed to detect RNA from SARS-CoV-2 in a nasopharyngeal (SORORITY MOTHER) or oropharyngeal (OP) swab from patients with signs and symptoms of infection who are suspected of COVID-19. Results are for the identification of SARS-CoV-2 RNA. The SARS-CoV-2 RNA is generally detectable in a nasopharyngeal or oropharyngeal swab during the acute phase of infection. The [employer] SARS-CoV-2 assay is intended for use by qualified and trained clinical laboratory personnel specifically instructed and trained in the techniques of real-time PCR and in vitro diagnostic procedures. The [employer] Solutions[employer]X SARS-CoV-2 assay is only for use under the Food and Drug Administration Emergency Use Authorization. Testing is limited to laboratories certified under the Clinical Laboratory Improvement Amendments of 1988 (CLIA), 42 U.S.C. 263a, to perform high complexity tests.Performed By: #### [id number] #### [facility] [address] [place] [address], USACBC COMPLETE BLOOD COUNTon 35-54-0831Lasoxesbblc distribution width (RBC) [Ratio]14.6 %Lmgttt76.5-15.0The [facility] ShawComment on above:Order Comment: No: Do not add to previous drawMissed pt has to go to the bathroom ask to come backPerformed By: #### 90381 #### [facility] [address] [place] [address], USAHematocrit (Bld) [Volume fraction]43.6 %Txoqit92.0-45.0The [facility] ShawComment on above:Order Comment: No: Do not add to previous drawMissed pt has to go to the bathroom ask to come back Performed By: #### 77817 #### [facility] [address] [place] [address], USAHemoglobin (Bld) [Mass/Vol]13.8 g/bLZfxsqa42.0-15.0The [facility] ShawComment on above:Order Comment: No: Do not add to previous drawMissed pt has to go to the bathroom ask to come back Performed By: #### 13466 #### [facility] [address] [place] [address], [facility] SERVICESMCH (RBC) [Entitic mass]28.9 asOdcrdc55.0-33.0The [facility] ShawComment on above:Order Comment: No: Do not add to previous drawMissed pt has to go to the bathroom ask to come back Performed By: #### 12446 #### [facility] [address] [facility] [place] [address], USAMCHC (RBC) [Mass/Vol]31.7 g/dLLow32.0-35.0The [facility] ShawComment on above:Order Comment: No: Do not add to previous drawMissed pt has to go to the bathroom ask to come backPerformed By: #### 79023 #### [facility] [address] [place] [address], [facility] SERVICESMCV (RBC) [Entitic vol]91.2 uPAsxayn01.0-98.0The [facility] ShawComment on above:Order Comment: No: Do not add to previous drawMissed pt has to go to the bathroom ask to come backPerformed By: #### 31772 #### [facility] [address] [place] [address], USANucleated RBC/100 WBC (Bld) [Ratio]0 %Normal0-0The [facility] ShawComment on above:Order Comment: No: Do not add to previous drawMissed pt has to go to the bathroom ask to come back Performed By: #### 42834 #### [facility] [address] [facility] [place] [address], USAPLAT [id number] 10*3/yHNptjdf026-943Wxx [facility] Edwin ShawComment on above:Order Comment: No: Do not add to previous drawMissed pt has to go to the bathroom ask to come backPerformed By: #### [id number] #### [facility] [address] [place] [address], [facility]IORAL HEALTH SERVICESRBC (Bld) [#/Vol]4.78 10*6/uLNormal3.80-5.00The [facility], Edwin ShawComment on above:Order Comment: No: Do not add to previous drawMissed pt has to go to the bathroom ask to come backPerformed By: #### [id number] #### [facility] [address] [facility] [place] [address], USAWBC (Bld) [#/Vol]10.61 10*3/uLHigh4.00-10.60The [facility], Edwin ShawComment on above:Order Comment: No: Do not add to previous drawMissed pt has to go to the bathroom ask to come backPerformed By: #### [id number] #### [facility] [address] [place] [address], USAEndoscopy Reporton [id number] ReportMR#: [id number] [facility] Pt. Name: Hortensia Bates Surgery Date: 04/18/2020 Room #: 3AB [id number] Date of : 1955 PROCEDURE NOTE ATTENDING: Arley Sanchez M.D. TEST CASE DEVELOPER: Edmond Watkins MD PROCEDURE: Colonoscopy. INDICATION: This [...] to the patient being on anticoagulation. 3. Ghinvign-vx-dvqjme sigmoid diverticulosis. 4. Poor bowel prep with [...] Watkins MD Date Trans: 04/18/2020 07:10 P/lazarus DN_JN:[id number] [facility] GLU[facility]SE LAB on [id number] [Mass/Vol]111 mg/mVLiqd32-080Uqj [facility] Edwin ShawComment on above:Performed By: #### [id number] #### [facility] [address] [place] [address], USAGlucose [Mass/Vol]84 mg/mRQeshnm33-176Ptb [facility] ShawComment on above:Performed By: #### [id number] ####[facility] [place] [address], USAGlucose [Mass/Vol] 87 mg/uIErhfky55-083Yyx [facility] ShawComment on above: Performed By: #### [id number] #### [facility] [address] [place] [address], USAGlucose [Mass/Vol]86 mg/zWExfyjd34-055Pqe [facility] ShawComment on above:Performed By: #### [id number] ####[facility] [place] [address], USAGlucose [Mass/Vol] 104 mg/zVLmyo78-022Fng [facility] ShawComment on above: Performed By: #### [id number] #### [facility] [address] [address], [facility]IOR[facility] HEALTH SERVICESPROTHROMBIN TIMEon [id number] Coag (PPP) [Relative time] 1.85 {INR}High0.91-1.16The [facility], Edwin ShawComment on above: Order Comment: No: Do not add to previous drawResult Comment: ACCCP RECOMMENDED INR FOR WARFARIN THERAPY ------- CONDITION INR PROPHYLAXIS OF VENOUS THROMBOSIS 2-3 (HIGH-RISK SURGERY) TREATMENT OF VENOUS THROMBOSIS 2-3 TREATMENT OF PULMONARY EMBOLISM 2-3 PREVENTION OF SYSTEMIC EMBOLISM: 2-3 ACUTE MYOCARDIAL INFARCTION TISSUE HEART VALVES VALVULAR HEART DISEASE ATRIAL FIBRILLATION RECURRENT SYSTEMIC EMBOLISM MECHANICAL HEART VALVE 2.5-3.5 FROM: ORAL ANTICOAGULANTS. MECHANISM OF ACTION, CLINICAL EFFECTIVENESS, AND OPTIMAL THERAPEUTIC RANGE. CHEST 1995;108:231S-246S.Performed By: #### 06148, [id number] #### [facility] [address] [place] [id number], USAPT Coag (PPP) [Time]21.4 sHigh12.3-14.8The [facility] Edwin ShawComment on above:Order Comment: No: Do not add to previous drawResult Comment: ALL RESULTS MUST BE INTERPRETED WITH RESPECT TO BLOOD DRAWING ARTIFACT OR DILUTION ERROR OF ANTICOAGULANT AT THE TIME OF SAMPLING.Performed By: #### [id number], [id number] #### [facility] [address] [place] [address], USACBC COMPLETE BLOOD COUNTon 48-07-0622Izcmiwsuvph distribution width (RBC) [Ratio]14.6 %Lofvcb34.5-15.0The [facility] ShawComment on above:Order Comment: UnknownPerformed By: #### [id number] #### [facility] [address] [place] [address], USAHematocrit (Bld) [Volume fraction]41.7 %Qyliol03.0-45.0The [facility] ShawComment on above:Order Comment: Unknown Performed By: #### [id number] #### [facility] [address] [place] [address], USAHemoglobin (Bld) [Mass/Vol]13.4 g/sBThgdaz64.0-15.0The [facility] ShawComment on above:Order Comment: Unknown Performed By: #### [id number] #### [facility] [address] [place] [address], [facility] BEHAVIORAL HEALTH SERVICESMCH (RBC) [Entitic mass]29.0 leMkduak56.0-33.0The [facility] ShawComment on above:Order Comment: Unknown Performed By: #### 00025 #### [facility] [address] [facility] [place] [address], USAMCHC (RBC) [Mass/Vol]32.1 g/kRMyjios40.0-35.0The [facility] ShawComment on above:Order Comment: UnknownPerformed By: #### [id number] #### [facility] [address] [place] [id number], [facility] HEALTH SERVICESMCV (RBC) [Entitic vol]90.3 vFPcarkv58.0-98.0The [facility] ShawComment on above:Order Comment: UnknownPerformed By: #### [id number] #### [facility] [address] [place] [address], USANucleated RBC/100 WBC (Bld) [Ratio]0 %Normal0-0The [facility] ShawComment on above:Order Comment: Unknown Performed By: #### [id number] #### [facility] [address] [place] [address], [place]APLAT [id number] 10*3/sKQyiduj138-036Wwq [facility] ShawComment on above:Order Comment: UnknownPerformed By: #### [id number] #### [facility] [address] [place] [address], [facility]IOR[facility] HEALTH SERVICESRBC (Bld) [#/Vol]4.62 10*6/uLNormal3.80-5.00The [facility] ShawComment on above:Order Comment: UnknownPerformed By: #### [id number] #### [facility] [address] [place] [address], [facility]IORAL HEALTH SERVICESWBC (Bld) [#/Vol]9.33 10*3/uLNormal4.00-10.60The [facility] ShawComment on above:Order Comment: UnknownPerformed By: #### [id number] #### [facility] [address] [facility] [place] [address], [facility] SERVICESCBC W/DIFFon [id number] IMM GRANS0.0 10*3/uLNormal 0.0-0.2The [facility] ShawComment on above:Order Comment: No: Do not add to previous drawPerformed By: #### [id number] #### [facility] [address] [place] [address], USAABS NEUTROPHILS6.4 10*3/uLNormal1.6-7.6The [facility] ShawComment on above:Order Comment: No: Do not add to previous drawPerformed By: #### [id number] #### [facility] [address] [address], USABasophils (Bld) [#/Vol]0.1 10*3/uLNormal0.0-0.2The [facility] ShawComment on above:Order Comment: No: Do not add to previous drawPerformed By: #### [id number] #### [facility] [address] [place] [address], USABasophils/100 WBC (Bld)0.8 %Normal0.0-1.0The [facility] ShawComment on above:Order Comment: No: Do not add to previous drawPerformed By: #### 50970 #### [facility] [address] [place] [address], USAEosinophils (Bld) [#/Vol]0.4 10*3/uLNormal0.0-0.5The [facility] ShawComment on above:Order Comment: No: Do not add to previous drawPerformed By: #### 75569 #### [facility] [address] [place] [address], USAEosinophils/100 WBC (Bld)3.3 %Normal0.0-6.0The [facility] ShawComment on above:Order Comment: No: Do not add to previous drawPerformed By: #### [id number] #### [facility] [address] [facility] [place] [address], USAErythrocyte distribution width (RBC) [Ratio]14.6 %Normal 11.5-15.0The [facility] ShawComment on above:Order Comment: No: Do not add to previous drawPerformed By: #### 93819 #### [facility] [address] [place] [address], USAHematocrit (Bld) [Volume fraction]43.6 %Jwpdgd80.0-45.0The [facility] ShawComment on above:Order Comment: No: Do not add to previous drawPerformed By: #### [id number] #### [facility] [address] [place] [address], USAHemoglobin (Bld) [Mass/Vol]14.1 g/gCMfjyuw03.0-15.0The [facility] ShawComment on above:Order Comment: No: Do not add to previous drawPerformed By: #### 83629 #### [facility] [address] [place] [address], USAIMMATURE GRANS0.4 %Normal0.0-1.0The [facility] ShawComment on above:Order Comment: No: Do not add to previous draw Performed By: #### 81292 #### [facility] [address] [place] [address], USALymphocytes (Bld) [#/Vol]3.2 10*3/uLNormal1.2-4.0The [facility] ShawComment on above:Order Comment: No: Do not add to previous drawPerformed By: #### 23096 #### [facility] [address] [place] [address], USALymphocytes/100 WBC (Bld)29.7 %Jzhumg26.0-45.0The [facility] ShawComment on above:Order Comment: No: Do not add to previous drawPerformed By: #### [id number] #### [facility] [address] [place] [address], USAMCH (RBC) [Entitic mass]29.1 hiRmobql52.0-33.0The [facility] ShawComment on above:Order Comment: No: Do not add to previous drawPerformed By: #### 76525 #### [facility] [address] [place] [address], [facility] BE[facility]IORAL HEALTH SERVICESMCHC (RBC) [Mass/Vol]32.3 g/hKZbhdaz79.0-35.0The [facility] ShawComment on above:Order Comment: No: Do not add to previous drawPerformed By: #### 49650 #### [facility] [address] [place] [address], [facility] HEALTH SERVICESMCV (RBC) [Entitic vol]89.9 qXScjwbb67.0-98.0The [facility] ShawComment on above:Order Comment: No: Do not add to previous drawPerformed By: #### [id number] #### [facility] [address] [place] [address], USAMonocytes (Bld) [#/Vol]0.7 10*3/uLNormal0.1-1.0The [facility] ShawComment on above:Order Comment: No: Do not add to previous drawPerformed By: #### 41512 #### [facility] [address] [place] [address], USAMONOS6.8 %Normal5.0-12.0The [facility] ShawComment on above:Order Comment: No: Do not add to previous drawPerformed By: #### 46963 #### [facility] [address] [place] [address], USANeutrophils/100 WBC (Bld)59.0 %Fghvsb39.0-72.0The [facility] ShawComment on above:Order Comment: No: Do not add to previous drawPerformed By: #### 36714 #### [facility] [address] [place] [address], USANucleated RBC/100 WBC (Bld) [Ratio]0 %Normal0-0The [facility] ShawComment on above:Order Comment: No: Do not add to previous drawPerformed By: #### [id number] #### [facility] [address] [place] [address], [place]AP[place]AT [id number] 10*3/yWPwlaxe016-032Qyu [facility] ShawComment on above:Order Comment: No: Do not add to previous draw Performed By: #### 82514 #### [facility] [address] [place] [address], USARBC (Bld) [#/Vol]4.85 10*6/uLNormal3.80-5.00The [facility] ShawComment on above:Order Comment: No: Do not add to previous drawPerformed By: #### 66045 #### [facility] [address] [place] [address], USAWBC (Bld) [#/Vol]10.90 10*3/uLHigh4.00-10.60The [facility] ShawComment on above:Order Comment: No: Do not add to previous drawPerformed By: #### [id number] #### [facility] [address] [place] [address], USAPOC GLUCOSE LABon 83-41-1815Hwqqgvl [Mass/Vol]109 mg/dLHigh 70-100The [facility] ShawComment on above:Performed By: #### 80953 #### [facility] [address] [place] [address], USAGlucose [Mass/Vol]93 mg/lCUhxjvr53-155Jcp [facility] ShawComment on above:Performed By: #### 71672 #### [facility] [address] [place] [address], USAGlucose [Mass/Vol]101 mg/iAJohi21-372Uau [facility] ShawComment on above:Performed By: #### [id number] ####[facility] [place] [address], [facility]IORAL HEALTH SERVICESGlucose [Mass/Vol] 106 mg/aLYnyt23-869Lfq [facility] ShawComment on above: Performed By: #### 38779 #### [facility] [address] [facility] [place] [address], [facility]*BLOOD CULTUREon 04-16-2020*BLOOD CULTUREClinical Report: (D) Specimen: BLOOD CULTURE Collected: 04/16/2020 00:31 Status: Final Last Updated: 04/21/2020 06:49 CULT RES (Final) No Growth Day 5NoAdena Health SystemComment on above: Performed By: #### 74838 #### [facility] [address] [facility] [place] [address], USAAPTTon 83-98-1519pWYP Coag (Bld) [Time]72.4 sCritically high25.0-35.0The [facility] ShawComment on above:Order Comment: No: Do not add to previous drawResult Comment: ALL RESULTS MUST BE INTERPRETED WITH [...] UFH for pharmacy use = 0.06 IU/ml .Performed By: #### 81295, 20206 #### [facility] [address] [facility] [place] [address], [facility]IOR[facility] HEALTH SERVICESBASIC METABOLIC PANELon 22-04-3930Htnivmf [Mass/Vol]9.5 mg/dLNormal8.6-10.3The [facility] ShawComment on above:Order Comment: No: Do not add to previous drawPerformed By: #### 21671, 40953 #### [facility] [address] [place] [address], USAChloride [Moles/Vol]102 mmol/DUeitsl29-422Cpf [facility] ShawComment on above:Order Comment: No: Do not add to previous drawPerformed By: #### 44313, 42591 #### [facility] [address] [place] [address], USACO2 [Moles/Vol]25 mmol/GJgvspn62-76Cft [facility] ShawComment on above:Order Comment: No: Do not add to previous draw Performed By: #### 56426, 37352 #### [facility] [address] [place] [address], USACreatinine [Mass/Vol]0.69 mg/dLNormal0.60-1.20The [facility] ShawComment on above:Order Comment: No: Do not add to previous drawPerformed By: #### 80568, 13181 #### [facility] [address] [place] [address], USAGFR/1.73 sq M.predicted among blacks MDRD (S/P/Bld) [Vol rate/Area]mL/min/{1.73_m2}Normal>60The [facility] Comment on above:Order Comment: No: Do not add to previous drawPerformed By: #### 28586, 76927 #### [facility] [address] [place] [address], USAGFR/1.73 sq M.predicted among non-blacks MDRD (S/P/Bld) [Vol rate/Area]mL/min/{1.73_m2}Normal>60The [facility] Comment on above:Order Comment: No: Do not add to previous drawPerformed By: #### 49481, 04687 #### [facility] [address] [place] [address], USAGlucose [Mass/Vol]102 mg/gWBihe32-102Tcd [facility] ShawComment on above:Order Comment: No: Do not add to previous drawPerformed By: #### 87459, 23817 #### [facility] [address] [place] [address], USAPotassium [Moles/Vol]3.5 mmol/LNormal3.5-5.1The [facility] ShawComment on above:Order Comment: No: Do not add to previous drawPerformed By: #### 71605, 95874 #### [facility] [address] [place] [address], USASodium [Moles/Vol]136 mmol/LAnjpsq916-411Ppu [facility] ShawComment on above:Order Comment: No: Do not add to previous drawPerformed By: #### 94943, 47826 #### [facility] [address] [place] [address], USAUrea nitrogen [Mass/Vol]14 mg/dLNormal7-25The [facility] ShawComment on above:Order Comment: No: Do not add to previous drawPerformed By: #### 26857, 86396 #### [facility] [address] [place] [address], USACalcium [Mass/Vol]10.0 mg/dLNormal8.6-10.3The [facility] ShawComment on above:Order Comment: No: Do not add to previous drawPerformed By: #### 25085 #### [facility] [address] [place] [address], USAChloride [Moles/Vol]101 mmol/QFxtnvy20-638Ann [facility] ShawComment on above:Order Comment: No: Do not add to previous drawPerformed By: #### 50075 #### [facility] [address] [place] [address], USACO2 [Moles/Vol]26 mmol/DTdeuvn90-93Xdg [facility] ShawComment on above:Order Comment: No: Do not add to previous draw Performed By: #### 97991 #### [facility] [address] [place] [address], USACreatinine [Mass/Vol]0.74 mg/dLNormal0.60-1.20The [facility] ShawComment on above:Order Comment: No: Do not add to previous drawPerformed By: #### 04235 #### [facility] [address] [place] [address], USAGFR/1.73 sq M.predicted among blacks MDRD (S/P/Bld) [Vol rate/Area]mL/min/{1.73_m2}Normal>60The [facility] Comment on above:Order Comment: No: Do not add to previous drawPerformed By: #### 31271 #### [facility] [address] [place] [address], USAGFR/1.73 sq M.predicted among non-blacks MDRD (S/P/Bld) [Vol rate/Area]mL/min/{1.73_m2}Normal>60The [facility] Comment on above:Order Comment: No: Do not add to previous drawPerformed By: #### 63504 #### [facility] [address] [place] [address], USAGlucose [Mass/Vol]109 mg/tGCfma41-201Jzl [facility] ShawComment on above:Order Comment: No: Do not add to previous drawPerformed By: #### 25619 #### [facility] [address] [place] [address], USAPotassium [Moles/Vol]3.7 mmol/LNormal3.5-5.1The [facility] ShawComment on above:Order Comment: No: Do not add to previous drawPerformed By: #### 83613 #### [facility] [address] [place] [address], USASodium [Moles/Vol]136 mmol/GPcbgmy155-099Lxe [facility] ShawComment on above:Order Comment: No: Do not add to previous drawPerformed By: #### 58660 #### [facility] [address] [place] [address], USAUrea nitrogen [Mass/Vol]14 mg/dLNormal7-25The [facility] ShawComment on above:Order Comment: No: Do not add to previous drawPerformed By: #### 05817 #### [facility] [address] [place] [address], USACBC W/DIFFon 37-62-7236PTH IMM GRANS0.0 10*3/uLNormal 0.0-0.2The [facility], [facility] ShawComment on above:Order Comment: No: Do not add to previous drawPerformed By: #### 47295 #### [facility] [address] [place] [address], USAABS NEUTROPHILS7.2 10*3/uLNormal1.6-7.6The [facility] ShawComment on above:Order Comment: No: Do not add to previous drawPerformed By: #### 85588 #### [facility] [address] [facility] [place] [address], USABasophils (Bld) [#/Vol]0.1 10*3/uLNormal0.0-0.2The [facility] ShawComment on above:Order Comment: No: Do not add to previous drawPerformed By: #### 03650 #### [facility] [address] [facility] [place] [address], USABasophils/100 WBC (Bld)0.7 %Normal0.0-1.0The [facility] ShawComment on above:Order Comment: No: Do not add to previous drawPerformed By: #### 81075 #### [facility] [address] [facility] [place] [address], USAEosinophils (Bld) [#/Vol]0.2 10*3/uLNormal0.0-0.5The [facility] ShawComment on above:Order Comment: No: Do not add to previous drawPerformed By: #### 88552 #### [facility] [address] [place] [id number], USAEosinophils/100 WBC (Bld)2.1 %Normal0.0-6.0The [facility] ShawComment on above:Order Comment: No: Do not add to previous drawPerformed By: #### 85909 #### [facility] [address] [place] [address], USAErythrocyte distribution width (RBC) [Ratio]14.4 %Normal 11.5-15.0The [facility] ShawComment on above:Order Comment: No: Do not add to previous drawPerformed By: #### 90350 #### [facility] [address] [place] [address], USAHematocrit (Bld) [Volume fraction]43.2 %Amzjbj42.0-45.0The [facility] ShawComment on above:Order Comment: No: Do not add to previous drawPerformed By: #### 64260 #### [facility] [address] [address], USAHemoglobin (Bld) [Mass/Vol]14.2 g/aHDoalgk09.0-15.0The [facility] [facility] Edwin ShawComment on above:Order Comment: No: Do not add to previous drawPerformed By: #### [id number] #### [facility] [address] [place] [address], USAIMMATURE GRANS0.3 %Normal0.0-1.0The [facility], Edwin ShawComment on above:Order Comment: No: Do not add to previous draw Performed By: #### [id number] #### [facility] [address] [place] [address], USALymphocytes (Bld) [#/Vol]2.9 10*3/uLNormal1.2-4.0The [facility] Edwin ShawComment on above:Order Comment: No: Do not add to previous drawPerformed By: #### [id number] #### [facility] [address] [place] [address], USALymphocytes/100 WBC (Bld)25.1 %Pnukeq94.0-45.0The [facility], Edwin ShawComment on above:Order Comment: No: Do not add to previous drawPerformed By: #### [id number] #### [facility] [address] [place] [address], [facility] (RBC) [Entitic mass]29.5 jiNrqeqf31.0-33.0The [facility] Edwin ShawComment on above:Order Comment: No: Do not add to previous drawPerformed By: #### [id number] #### [facility] [address] [place] [address], [facility] SERVICESMCHC (RBC) [Mass/Vol]32.9 g/nLPfscip82.0-35.0The [facility] ShawComment on above:Order Comment: No: Do not add to previous drawPerformed By: #### 93975 #### [facility] [address] [place] [address], [facility] HEALTH SERVICESMCV (RBC) [Entitic vol]89.8 hYDmvbtz96.0-98.0The [facility] ShawComment on above:Order Comment: No: Do not add to previous drawPerformed By: #### 63901 #### [facility] [address] [place] [address], USAMonocytes (Bld) [#/Vol]0.9 10*3/uLNormal0.1-1.0The [facility] ShawComment on above:Order Comment: No: Do not add to previous drawPerformed By: #### [id number] #### [facility] [address] [place] [address], USAMONOS8.0 %Normal5.0-12.0The [facility], Edwin ShawComment on above:Order Comment: No: Do not add to previous drawPerformed By: #### 76974 #### [facility] [address] [place] [address], USANeutrophils/100 WBC (Bld)63.8 %Wtshei77.0-72.0The [facility], Edwin ShawComment on above:Order Comment: No: Do not add to previous drawPerformed By: #### [id number] #### [facility] [address] [place] [address], USANucleated RBC/100 WBC (Bld) [Ratio]0 %Normal0-0The [facility], Edwin ShawComment on above:Order Comment: No: Do not add to previous drawPerformed By: #### 84388 #### [facility] [address] [place] [address], USAPLAT GMT366 10*3/uIGdmsfn107-057Evj [facility] ShawComment on above:Order Comment: No: Do not add to previous draw Performed By: #### 60321 #### [facility] [address] [place] [address], USARBC (Bld) [#/Vol]4.81 10*6/uLNormal3.80-5.00The [facility] ShawComment on above:Order Comment: No: Do not add to previous drawPerformed By: #### 85820 #### [facility] [address] [place] [address], USAWBC (Bld) [#/Vol]11.34 10*3/uLHigh4.00-10.60The [facility] Medical CenterComment on above:Order Comment: No: Do not add to previous drawPerformed By: #### [id number] #### [address] [address], USACTA CHESTon [id number] CHESTSelect Medical [facility] Clinic [facility] Department of Radiology [address] [place] [id number] Patient Name: HORTENSIA BATES : 1955 Sex: F Age: Race: White Pt. Location: [address] [place] [address] Patient Status: D Ordered Date: 04/16/2020 9:05:00 [...] criteria Electronically signed: Jax Perez. Transcribed by: [id number], User Resident: Electronically Signed by: LA NENA SCHERER @ 05/28/2020 12:26 AMNormalThe [facility], Edwin ShawComment on above:Order Comment: Other, Planned for AFib albation, anatomy of pulmonary veinsMAGNESIUM BLOODon 50-33-0262Roqshaeoy [Mass/Vol]1.7 mg/dLLow1.9-2.7The [facility] ShawComment on above:Order Comment: No: Do not add to previous draw Performed By: #### 57911, 49354 #### [facility] [address] [place] [address], USAMagnesium [Mass/Vol]1.8 mg/dLLow1.9-2.7The [facility] ShawComment on above:Order Comment: No: Do not add to previous drawPerformed By: #### 93525, 69057 #### [facility] [address] [place] [address], USAPHOSPHORUS BLOODon 77-66-1772Uorkywvsi [Mass/Vol]3.6 mg/dL Normal2.5-5.0The [facility], [facility] ShawComment on above:Order Comment: No: Do not add to previous drawPerformed By: #### 60947, 69267 #### [facility] [address] [place] [address], USAPOC GLUCOSE LABon 25-04-1226Tvhnqwt [Mass/Vol]111 mg/dLHigh 70-100The [facility], [facility] ShawComment on above:Performed By: #### 53091 ####[facility] [place] [address], USAGlucose [Mass/Vol]122 mg/oSSink99-409Byu [facility] ShawComment on above:Performed By: #### 73967 #### [facility] [address] [place] [address], USAGlucose [Mass/Vol]105 mg/kRGabr97-256Rre [facility] ShawComment on above:Performed By: #### 39429 ####[facility] [place] [address], USAGlucose [Mass/Vol] 106 mg/tUMgrl88-393Gtb [facility], [facility] ShawComment on above: Performed By: #### 80184 #### [facility] [address] [facility] [place] [address], USAPROTHROMBIN TIMEon 22-27-6696TWM Coag (PPP) [Relative time] 2.24 {INR}High0.91-1.16The [facility], Edwin ShawComment on above: Order Comment: No: Do not add to previous drawResult Comment: ACCCP RECOMMENDED INR FOR WARFARIN THERAPY ------- CONDITION INR PROPHYLAXIS OF VENOUS THROMBOSIS 2-3 (HIGH-RISK SURGERY) TREATMENT OF VENOUS THROMBOSIS 2-3 TREATMENT OF PULMONARY EMBOLISM 2-3 PREVENTION OF SYSTEMIC EMBOLISM: 2-3 ACUTE MYOCARDIAL INFARCTION TISSUE HEART VALVES VALVULAR HEART DISEASE ATRIAL FIBRILLATION RECURRENT SYSTEMIC EMBOLISM MECHANICAL HEART VALVE 2.5-3.5 FROM: ORAL ANTICOAGULANTS. MECHANISM OF ACTION, CLINICAL EFFECTIVENESS, AND OPTIMAL THERAPEUTIC RANGE. CHEST 1995;108:231S-246S.Performed By: #### 59411, 69057 #### [facility] [address] [facility] [place] [id number], USAPT Coag (PPP) [Time]24.9 sHigh12.3-14.8The [facility], [facility] ShawComment on above:Order Comment: No: Do not add to previous drawResult Comment: ALL RESULTS MUST BE INTERPRETED WITH RESPECT TO BLOOD DRAWING ARTIFACT OR DILUTION ERROR OF ANTICOAGULANT AT THE TIME OF SAMPLING.Performed By: #### 57034, 18290 #### [facility] [address] [facility] [place] [address], USATROPONIN-Ion 82-49-9812Xonxsmwc I.cardiac [Mass/Vol]0.01 ng/mLNormal0.00-0.04The [facility], Edwin ShawComment on above: Order Comment: No: Do not add to previous drawResult Comment: REFERENCE RANGES: 0.00 - 0.04 ng/ml NORMAL 0.05 - 0.50 ng/ml INDETERMINATE > 0.50 ng/ml CONSISTENT WITH AN M.I.Performed By: #### 57821 #### [facility] [address] [facility] [place] [address], USATroponin I.cardiac [Mass/Vol]0.01 ng/mLNormal0.00-0.04The [facility], [facility] ShawComment on above:Order Comment: No: Do not add to previous drawResult Comment: REFERENCE RANGES: 0.00 - 0.04 ng/ml NORMAL 0.05 - 0.50 ng/ml INDETERMINATE > 0.50 ng/ml CONSISTENT WITH AN M.I.Performed By: #### 71409 #### [facility] [address] [facility] [place] [address], USATroponin I.cardiac [Mass/Vol]0.01 ng/mLNormal0.00-0.04The [facility] ShawComment on above:Order Comment: No: Do not add to previous drawResult Comment: REFERENCE RANGES: 0.00 - 0.04 ng/ml NORMAL 0.05 - 0.50 ng/ml INDETERMINATE > 0.50 ng/ml CONSISTENT WITH AN M.I.Performed By: #### 26896 #### [facility] [address] [facility] [place] [address], USAUFH HEPARIN ASSAYon [id number] HEPARIN0.28 IU/mLLow0.30-0.70The [facility] ShawComment on above:Result Comment: Rivaroxaban and Apixaban will interfere with the anti Xa assay used to monitor UFH and LMWH.Performed By: #### 61028, 70310 #### [facility] [address] [facility]. [place] [id number], USAMAGNESIUM BLOODon 71-13-9367Wvvjnyqcq [Mass/Vol]2.0 mg/dL Normal1.9-2.7The [facility] ShawComment on above:Order Comment: No: Do not add to previous drawPerformed By: #### 50865, 42666 #### [facility] [address] [place] [address], USAPOTASSIUM BLOODon 58-55-8445Hzcoiilxy [Moles/Vol]3.6 mmol/L Normal3.5-5.1The [facility] ShawComment on above:Order Comment: No: Do not add to previous drawPerformed By: #### 36314, 80721 #### [facility] [address] [facility] [place] [address], [facility] HEALTH SERVICESPROTHROMBIN TIMEon 78-22-4241TBA Coag (PPP) [Relative time] 1.99 {INR}High0.91-1.16The [facility] ShawComment on above: Order Comment: UnknownResult Comment: ACCCP RECOMMENDED INR FOR WARFARIN THERAPY ------- CONDITION INR PROPHYLAXIS OF VENOUS THROMBOSIS 2-3 (HIGH-RISK SURGERY) TREATMENT OF VENOUS THROMBOSIS 2-3 TREATMENT OF PULMONARY EMBOLISM 2-3 PREVENTION OF SYSTEMIC EMBOLISM: 2-3 ACUTE MYOCARDIAL INFARCTION TISSUE HEART VALVES VALVULAR HEART DISEASE ATRIAL FIBRILLATION RECURRENT SYSTEMIC EMBOLISM MECHANICAL HEART VALVE 2.5-3.5 FROM: ORAL ANTICOAGULANTS. MECHANISM OF ACTION, CLINICAL EFFECTIVENESS, AND OPTIMAL THERAPEUTIC RANGE. CHEST 1995;108:231S-246S.Performed By: #### 99190 #### [facility] [address] [place] [address], USAPT Coag (PPP) [Time]22.7 sHigh12.3-14.8The [facility] ShawComment on above:Order Comment: UnknownResult Comment: ALL RESULTS MUST BE INTERPRETED WITH RESPECT TO BLOOD DRAWING ARTIFACT OR DILUTION ERROR OF ANTICOAGULANT AT THE TIME OF SAMPLING.Performed By: #### 09957 #### [facility] [address] [place] [address], USABASIC METABOLIC PANELon 96-67-1467Lhjvwsa [Mass/Vol]8.8 mg/dLNormal8.6-10.3The [facility] ShawComment on above:Order Comment: No: Do not add to previous drawPerformed By: #### 59564, 60262 #### [facility] [address] [place] [address], USAChloride [Moles/Vol]103 mmol/NBxusfz13-353Xlr [facility], [facility] ShawComment on above:Order Comment: No: Do not add to previous drawPerformed By: #### 05501, 58811 #### [facility] [address] [place] [address], USACO2 [Moles/Vol]26 mmol/YIwkhsv23-37Jol [facility] ShawComment on above:Order Comment: No: Do not add to previous draw Performed By: #### 62418, 23108 #### [facility] [address] [place] [address], USACreatinine [Mass/Vol]0.75 mg/dLNormal0.60-1.20The [facility] ShawComment on above:Order Comment: No: Do not add to previous drawPerformed By: #### 02986, 46482 #### [facility] [address] [place] [address], USAGFR/1.73 sq M.predicted among blacks MDRD (S/P/Bld) [Vol rate/Area]mL/min/{1.73_m2}Normal>60The [facility] Comment on above:Order Comment: No: Do not add to previous drawPerformed By: #### 78127, 48270 #### [facility] [address] [place] [address], USAGFR/1.73 sq M.predicted among non-blacks MDRD (S/P/Bld) [Vol rate/Area]mL/min/{1.73_m2}Normal>60The [facility] Comment on above:Order Comment: No: Do not add to previous drawPerformed By: #### 57975, 23930 #### [facility] [address] [place] [address], USAGlucose [Mass/Vol]88 mg/sWHxpfdj97-615Vof [facility] ShawComment on above:Order Comment: No: Do not add to previous drawPerformed By: #### 50671, 74324 #### [facility] [address] [place] [address], USAPotassium [Moles/Vol]3.8 mmol/LNormal3.5-5.1The [facility] ShawComment on above:Order Comment: No: Do not add to previous drawPerformed By: #### 50629, 85030 #### [facility] [address] [place] [address], USASodium [Moles/Vol]135 mmol/PXog562-555Whx [facility] ShawComment on above:Order Comment: No: Do not add to previous drawPerformed By: #### 72043, 36685 #### [facility] [address] [place] [address], USAUrea nitrogen [Mass/Vol]17 mg/dLNormal7-25The [facility] ShawComment on above:Order Comment: No: Do not add to previous drawPerformed By: #### 40944, 98440 #### [facility] [address] [place] [address], USAMAGNESIUM BLOODon 71-06-1685Gmrnhhzlu [Mass/Vol]1.9 mg/dL Normal1.9-2.7The [facility] ShawComment on above:Order Comment: No: Do not add to previous drawPerformed By: #### 35121, 28094 #### [facility] [address] [place] [address], USAPOC GLUCOSE LABon 71-24-4271Raugmik [Mass/Vol]95 mg/dL Jzrlsu81-345Ifl [facility] ShawComment on above:Performed By: #### 26477 #### [facility] [address] [place] [address], USAGlucose [Mass/Vol]86 mg/zNArxdcn51-537Luq [facility] ShawComment on above:Performed By: #### 06462 #### [facility] [address] [place] [address], USAGlucose [Mass/Vol]82 mg/uKTqwnsc99-725Dyg [facility] ShawComment on above:Performed By: #### 93480 #### [facility] [address] [place] [address], USAGlucose [Mass/Vol]92 mg/yEEupjvw30-037Nqg [facility] ShawComment on above:Performed By: #### 23045 ####[facility] [place] [address], USAGlucose [Mass/Vol] 96 mg/rWSpwuip70-364Ssu [facility] ShawComment on above: Performed By: #### 85683 ####[facility] [place] [address], USAPROTHROMBIN TIMEon 36-78-3814KWR Coag (PPP) [Relative time]1.80 {INR}High0.91-1.16The [facility] ShawComment on above:Order Comment: No: Do not add to previous drawResult Comment: ACCCP RECOMMENDED INR FOR WARFARIN THERAPY ------- CONDITION INR PROPHYLAXIS OF VENOUS THROMBOSIS 2-3 (HIGH-RISK SURGERY) TREATMENT OF VENOUS THROMBOSIS 2-3 TREATMENT OF PULMONARY EMBOLISM 2-3 PREVENTION OF SYSTEMIC EMBOLISM: 2-3 ACUTE MYOCARDIAL INFARCTION TISSUE HEART VALVES VALVULAR HEART DISEASE ATRIAL FIBRILLATION RECURRENT SYSTEMIC EMBOLISM MECHANICAL HEART VALVE 2.5-3.5 FROM: ORAL ANTICOAGULANTS. MECHANISM OF ACTION, CLINICAL EFFECTIVENESS, AND OPTIMAL THERAPEUTIC RANGE. CHEST 1995;108:231S-246S.Performed By: #### 06421, 10757 #### [facility] [address] [facility] [place] [address], USAPT Coag (PPP) [Time]21.0 sHigh12.3-14.8The [facility] ShawComment on above:Order Comment: No: Do not add to previous drawResult Comment: ALL RESULTS MUST BE INTERPRETED WITH RESPECT TO BLOOD DRAWING ARTIFACT OR DILUTION ERROR OF ANTICOAGULANT AT THE TIME OF SAMPLING.Performed By: #### 58030, 98244 #### [facility] [address] [address], USABASIC METABOLIC PANELon 44-23-2572Excqidz [Mass/Vol]9.0 mg/dLNormal8.6-10.3The [facility] ShawComment on above:Order Comment: No: Do not add to previous drawPerformed By: #### 33160, 32897 #### [facility] [address] [place] [address], USAChloride [Moles/Vol]101 mmol/YDuyhhp74-025Nha [facility] ShawComment on above:Order Comment: No: Do not add to previous drawPerformed By: #### 64453, 38012 #### [facility] [address] [place] [address], USACO2 [Moles/Vol]25 mmol/VYmidoo65-31Brc [facility] ShawComment on above:Order Comment: No: Do not add to previous draw Performed By: #### 88820, 73759 #### [facility] [address] [place] [address], USACreatinine [Mass/Vol]0.90 mg/dLNormal0.60-1.20The [facility] ShawComment on above:Order Comment: No: Do not add to previous drawPerformed By: #### 36632, 45795 #### [facility] [address] [place] [address], USAGFR/1.73 sq M.predicted among blacks MDRD (S/P/Bld) [Vol rate/Area]mL/min/{1.73_m2}Normal>60The [facility] Comment on above:Order Comment: No: Do not add to previous drawPerformed By: #### 47641, 09232 #### [facility] [address] [place] [address], USAGFR/1.73 sq M.predicted among non-blacks MDRD (S/P/Bld) [Vol rate/Area]mL/min/{1.73_m2}Normal>60The [facility] Comment on above:Order Comment: No: Do not add to previous drawPerformed By: #### 11877, 69544 #### [facility] [address] [place] [address], USAGlucose [Mass/Vol]77 mg/hAPpgcut53-162Xge [facility] ShawComment on above:Order Comment: No: Do not add to previous drawPerformed By: #### 14487, 17131 #### [facility] [address] [place] [address], USAPotassium [Moles/Vol]4.0 mmol/LNormal3.5-5.1The [facility] ShawComment on above:Order Comment: No: Do not add to previous drawPerformed By: #### 20278, 22317 #### [facility] [address] [place] [address], USASodium [Moles/Vol]135 mmol/FCmr067-043Xsx [facility] ShawComment on above:Order Comment: No: Do not add to previous drawPerformed By: #### 05053, 26582 #### [facility] [address] [place] [address], USAUrea nitrogen [Mass/Vol]17 mg/dLNormal7-25The [facility] ShawComment on above:Order Comment: No: Do not add to previous drawPerformed By: #### 15128, 82013 #### [facility] [address] [place] [address], USACBC COMPLETE BLOOD COUNTon 00-11-7055Cubwarcswrq distribution width (RBC) [Ratio]14.9 %Krfdmc80.5-15.0The [facility] ShawComment on above:Order Comment: No: Do not add to previous draw Performed By: #### 09228 #### [facility] [address] [place] [address], USAHematocrit (Bld) [Volume fraction]47.5 %High36.0-45.0The [facility] ShawComment on above:Order Comment: No: Do not add to previous drawPerformed By: #### 55751 #### [facility] [address] [place] [address], USAHemoglobin (Bld) [Mass/Vol]15.3 g/sPQmrp42.0-15.0The [facility] ShawComment on above:Order Comment: No: Do not add to previous drawPerformed By: #### 58609 #### [facility] [address] [place] [address], [facility] (RBC) [Entitic mass]29.7 uyIgjyaw69.0-33.0The [facility] ShawComment on above:Order Comment: No: Do not add to previous drawPerformed By: #### 01638 #### [facility] [address] [place] [address], [facility]HC (RBC) [Mass/Vol]32.2 g/aBDvveup66.0-35.0The [facility] ShawComment on above:Order Comment: No: Do not add to previous drawPerformed By: #### 29361 #### [facility] [address] [place] [address], [facility] (RBC) [Entitic vol]92.1 uUHoqfcv44.0-98.0The [facility] ShawComment on above:Order Comment: No: Do not add to previous drawPerformed By: #### 51405 #### [facility] [address] [place] [address], [facility] HE[facility] SERVICESNucleated RBC/100 WBC (Bld) [Ratio]0 %Normal0-0The [facility] ShawComment on above:Order Comment: No: Do not add to previous drawPerformed By: #### 06666 #### [facility] [address] [place] [address], USAPLAT UKL331 10*3/cWIwnwyc920-089Kbk [facility] ShawComment on above:Order Comment: No: Do not add to previous draw Performed By: #### 41060 #### [facility] [address] [place] [address], [facility]IORAL HEALTH SERVICESRBC (Bld) [#/Vol]5.16 10*6/uLHigh3.80-5.00The [facility] ShawComment on above:Order Comment: No: Do not add to previous drawPerformed By: #### 17060 #### [facility] [address] [facility] [facility] [address], USAWBC (Bld) [#/Vol]12.02 10*3/uLHigh4.00-10.60The [facility] ShawComment on above:Order Comment: No: Do not add to previous drawPerformed By: #### 61313 #### [facility] [address] [facility] [place] [address], [facility] HEALTH SERVICESCardiovascular Lab Reporton [id number] Lab ReportUnDiley Ridge [facility] Center [facility] MR #: [id number] Department of Physician: Jessica Lopez M.Betty Division of Service Date: 03/30/2020 Cardiology Birthdate: 1955 Adult Cardiovascular Room #: 3AB [id number] [address] [address] Cardiovascular Laboratory Report CLINICAL PRESENTATION: The patient [...] infiltrated over the right radial artery. A 6-Bulgar[place] Terumo Glidesheath slender was placed in right radial artery. The radial anti-vasospasm cocktail of verapamil 2.5 mg and nitroglycerin 200 mcg was administered through the sheath. All catheter exchanges were made over the [employer] guidewire. A 5-Bulgarian JR5 was used to engage the right coronary artery. A 5-Bulgarian JL3.5 was used to engage the left [...] A/Chay Arango M.D. Date Trans: 03/30/2020 01:43 P/lazarus DN_JN:[id number] Health SystemMAGNESIUM BLOOD on 22-48-7339Ioysbfdem [Mass/Vol]2.1 mg/dLNormal1.9-2.7The [facility], Edwin ShawComment on above:Order Comment: No: Do not add to previous draw Performed By: #### [id number], [id number] #### [facility] [address] [place] [address], [facility] SERVICESPO GLUCOSE LABon 31-02-6694Kuoylsm [Mass/Vol]94 mg/dL Boetbz33-161Esc [facility], Edwin ShawComment on above:Performed By: #### [id number] ####[facility] [place] [address], USAGlucose [Mass/Vol]95 mg/sXTweykx57-349Csk [facility], Edwin ShawComment on above:Performed By: #### [id number] #### [facility] [address] [place] [address], USAGlucose [Mass/Vol]86 mg/hWXpuzoc93-119Mdh [facility], Edwin ShawComment on above:Performed By: #### [id number] ####[facility] [facility] [place] [address], USAPROTHROMBIN TIMEon 80-71-0338VNG Coag (PPP) [Relative time]1.88 {INR}High0.91-1.16The [facility], Edwin ShawComment on above:Order Comment: Yes: Add to Previous draw if ableResult Comment: ACCCP RECOMMENDED INR FOR WARFARIN THERAPY ------- CONDITION INR PROPHYLAXIS OF VENOUS THROMBOSIS 2-3 (HIGH-RISK SURGERY) TREATMENT OF VENOUS THROMBOSIS 2-3 TREATMENT OF PULMONARY EMBOLISM 2-3 PREVENTION OF SYSTEMIC EMBOLISM: 2-3 ACUTE MYOCARDIAL INFARCTION TISSUE HEART VALVES VALVULAR HEART DISEASE ATRIAL FIBRILLATION RECURRENT SYSTEMIC EMBOLISM MECHANICAL HEART VALVE 2.5-3.5 FROM: ORAL ANTICOAGULANTS. MECHANISM OF ACTION, CLINICAL EFFECTIVENESS, AND OPTIMAL THERAPEUTIC RANGE. CHEST 1995;108:231S-246S.Performed By: #### [id number] #### [facility] [address] [place] [address], USAPT Coag (PPP) [Time]21.7 sHigh12.3-14.8The [facility], Edwin ShawComment on above:Order Comment: Yes: Add to Previous draw if ableResult Comment: ALL RESULTS MUST BE INTERPRETED WITH RESPECT TO BLOOD DRAWING ARTIFACT OR DILUTION ERROR OF ANTICOAGULANT AT THE TIME OF SAMPLING.Performed By: #### [id number] #### [facility] [address] [facility]. [address]*SARS-CoV-2 COVID-19on 11-83-3770QTML-CoV-2 (COVID-19) RNA JAS+probe Ql (Unsp spec)Not detectedNormalNot DetectedThe [facility] ShawComment on above:Order Comment: The Aptima SARS-CoV-2 assay is a nucleic acid amplification test intended for the qualitative detection of RNA from SARS-CoV-2 isolated and purified from nasopharyngeal (SORORITY MOTHER),oropharyngeal (OP), nasal swab, sputum, and bronchoalveolar lavage (BAL) specimens from patients with signs and symptoms of infection who are suspected of COVID-19. Results are for the identification of SARS-CoV-2 RNA. The SARS-CoV-2 RNA is generally detectable during the acute phase of infection. The Aptima SARS-CoV-2 Assay on the Force-A and Force-A Fusion system is intended for use by laboratory personnel specifically instructed and trained in the operation of the [place] and Force-A Fusion system. The Aptima SARS-CoV-2 assay is [...] with clinical observations, patient history, and epidemiological information.Performed By: #### [id number] #### [facility] [address] [facility] [place] [address], [facility] HEALTH SERVICESAPTTucson Heart Hospital [id number] Coag (Bld) [Time]52.2 sHigh25.0-35.0 The [facility], Edwin ShawComment on above:Order Comment: No: Do not add to previous drawResult Comment: ALL RESULTS MUST BE INTERPRETED WITH [...] BE USED FOR THIS PURPOSE. UNREPORTED UFH >0.10Performed By: #### [id number] #### [facility] [address] [facility] [place] [address], USACBC W/DIFFon 94-08-7968LYK IMM GRANS0.0 10*3/uLNormal 0.0-0.2The [facility], [facility] ShawComment on above:Order Comment: No: Do not add to previous drawPerformed By: #### [id number] #### [facility] [address] [facility] [place] [address], USAABS NEUTROPHILS7.5 10*3/uLNormal1.6-7.6The [facility] ShawComment on above:Order Comment: No: Do not add to previous drawPerformed By: #### [id number] #### [facility] [address] [facility] [place] [address], USABasophils (Bld) [#/Vol]0.1 10*3/uLNormal0.0-0.2The [facility] ShawComment on above:Order Comment: No: Do not add to previous drawPerformed By: #### [id number] #### [facility] [address] [facility] [place] [address], USABasophils/100 WBC (Bld)0.6 %Normal0.0-1.0The [facility], Edwin ShawComment on above:Order Comment: No: Do not add to previous drawPerformed By: #### 48811 #### [facility] [address] [facility] [place] [address], USAEosinophils (Bld) [#/Vol]0.3 10*3/uLNormal0.0-0.5The [facility] ShawComment on above:Order Comment: No: Do not add to previous drawPerformed By: #### [id number] #### [facility] [address] [place] [address], USAEosinophils/100 WBC (Bld)2.1 %Normal0.0-6.0The [facility], [facility] ShawComment on above:Order Comment: No: Do not add to previous drawPerformed By: #### [id number] #### [facility] [address] [facility] [place] [address], USAErythrocyte distribution width (RBC) [Ratio]14.7 %Normal 11.5-15.0The [facility], [facility] ShawComment on above:Order Comment: No: Do not add to previous drawPerformed By: #### [id number] #### [facility] [address] [facility] [place] [address], USAHematocrit (Bld) [Volume fraction]48.0 %High36.0-45.0The [facility], [facility] ShawComment on above:Order Comment: No: Do not add to previous drawPerformed By: #### [id number] #### [facility] [address] [facility] [place] [address], USAHemoglobin (Bld) [Mass/Vol]15.5 g/cBKhpx92.0-15.0The [facility] ShawComment on above:Order Comment: No: Do not add to previous drawPerformed By: #### [id number] #### [facility] [address] [facility] [facility] [address], USAIMMATURE GRANS0.3 %Normal0.0-1.0The [facility], [facility] ShawComment on above:Order Comment: No: Do not add to previous draw Performed By: #### 85655 #### [facility] [address] [facility]. [place] [id number], USALymphocytes (Bld) [#/Vol]3.7 10*3/uLNormal1.2-4.0The [facility] ShawComment on above:Order Comment: No: Do not add to previous drawPerformed By: #### 61675 #### [facility] [address] [place] [id number], [facility] HEALTH SERVICESLymphocytes/100 WBC (Bld)29.6 %Zoiuks39.0-45.0The [facility], [facility] ShawComment on above:Order Comment: No: Do not add to previous drawPerformed By: #### 69486 #### [facility] [address] [place] [id number], [facility]INDSAYH (RBC) [Entitic mass]28.8 uzPotprn41.0-33.0The [facility], [facility] ShawComment on above:Order Comment: No: Do not add to previous drawPerformed By: #### [id number] #### [facility] [address] [place] [id number], [facility] SERVICESMCHC (RBC) [Mass/Vol]32.3 g/wBTcxfkb60.0-35.0The [facility] ShawComment on above:Order Comment: No: Do not add to previous drawPerformed By: #### [id number] #### [facility] [address] [place] [id number], [facility]V (RBC) [Entitic vol]89.1 tSJsavny35.0-98.0The [facility] ShawComment on above:Order Comment: No: Do not add to previous drawPerformed By: #### 49991 #### [facility] [address] [place] [id number], USAMonocytes (Bld) [#/Vol]0.9 10*3/uLNormal0.1-1.0The [facility] ShawComment on above:Order Comment: No: Do not add to previous drawPerformed By: #### 59522 #### [facility] [address] [place] [address], USAMONOS7.2 %Normal5.0-12.0The [facility] ShawComment on above:Order Comment: No: Do not add to previous drawPerformed By: #### [id number] #### [facility] [address] [place] [address], USANeutrophils/100 WBC (Bld)60.2 %Hunpig82.0-72.0The [facility] ShawComment on above:Order Comment: No: Do not add to previous drawPerformed By: #### 49351 #### [facility] [address] [place] [address], USANucleated RBC/100 WBC (Bld) [Ratio]0 %Normal0-0The [facility] ShawComment on above:Order Comment: No: Do not add to previous drawPerformed By: #### [id number] #### [facility] [address] [place] [address], USAPLAT CPY636 10*3/xZTmtxrc799-548Dog [facility] ShawComment on above:Order Comment: No: Do not add to previous draw Performed By: #### 78150 #### [facility] [address] [place] [address], USARBC (Bld) [#/Vol]5.39 10*6/uLHigh3.80-5.00The [facility] ShawComment on above:Order Comment: No: Do not add to previous drawPerformed By: #### [id number] #### [facility] [address] [place] [address], USAWBC (Bld) [#/Vol]12.38 10*3/uLHigh4.00-10.60The [facility] ShawComment on above:Order Comment: No: Do not add to previous drawPerformed By: #### [id number] #### [facility] [address] [place] [address], USACOMP METABOLIC PANELon 98-88-4819Qxhhobb [Mass/Vol]4.1 g/dL Normal3.5-5.7The [facility], [facility] ShawComment on above:Order Comment: No: Do not add to previous drawPerformed By: #### 02158, 95213 #### [facility] [address] [place] [address], USAALKALINE YCUCNA47 IU/POqzptg77-555Geq [facility] ShawComment on above:Order Comment: No: Do not add to previous draw Performed By: #### 59682, 07862 #### [facility] [address] [place] [address], USAALT [Catalytic activity/Vol]19 U/LNormal7-52The [facility] ShawComment on above:Order Comment: No: Do not add to previous drawPerformed By: #### 94236, 05239 #### [facility] [address] [place] [address], USAAST [Catalytic activity/Vol]19 U/TLfaaan65-02Oaw [facility] ShawComment on above:Order Comment: No: Do not add to previous drawPerformed By: #### 64175, 24528 #### [facility] [address] [place] [address], USABilirubin [Mass/Vol]0.8 mg/dLNormal0.3-1.0The [facility] ShawComment on above:Order Comment: No: Do not add to previous drawPerformed By: #### 66044, 58673 #### [facility] [address] [place] [address], USACalcium [Mass/Vol]9.8 mg/dLNormal8.6-10.3The [facility] ShawComment on above:Order Comment: No: Do not add to previous drawPerformed By: #### 70206, 45629 #### [facility] [address] [place] [address], USAChloride [Moles/Vol]100 mmol/FAfsvwe03-972Wpf [facility] ShawComment on above:Order Comment: No: Do not add to previous drawPerformed By: #### 00817, 79391 #### [facility] [address] [place] [address], USACO2 [Moles/Vol]26 mmol/XWlvhby81-49Jtr [facility] ShawComment on above:Order Comment: No: Do not add to previous draw Performed By: #### 79498, 06664 #### [facility] [address] [place] [address], USACreatinine [Mass/Vol]0.71 mg/dLNormal0.60-1.20The [facility], [facility] ShawComment on above:Order Comment: No: Do not add to previous drawPerformed By: #### 73937, 75177 #### [facility] [address] [place] [address], USAGFR/1.73 sq M.predicted among blacks MDRD (S/P/Bld) [Vol rate/Area]mL/min/{1.73_m2}Normal>60The [facility] Comment on above:Order Comment: No: Do not add to previous drawPerformed By: #### 62513, 91118 #### [facility] [address] [place] [address], USAGFR/1.73 sq M.predicted among non-blacks MDRD (S/P/Bld) [Vol rate/Area]mL/min/{1.73_m2}Normal>60The [facility] Comment on above:Order Comment: No: Do not add to previous drawPerformed By: #### 19782, 39796 #### [facility] [address] [place] [address], USAGlucose [Mass/Vol]107 mg/bXMoxv39-115Wwi [facility] ShawComment on above:Order Comment: No: Do not add to previous drawPerformed By: #### 95220, 64264 #### [facility] [address] [place] [address], USAPotassium [Moles/Vol]3.9 mmol/LNormal3.5-5.1The [facility] ShawComment on above:Order Comment: No: Do not add to previous drawPerformed By: #### 19192, 88321 #### [facility] [address] [place] [address], USAProtein [Mass/Vol]7.5 g/dLNormal6.0-8.3The [facility] ShawComment on above:Order Comment: No: Do not add to previous drawPerformed By: #### 74675, 38284 #### [facility] [address] [place] [address], USASodium [Moles/Vol]136 mmol/FZctmxg860-976Svy [facility] ShawComment on above:Order Comment: No: Do not add to previous drawPerformed By: #### 42143, 22042 #### [facility] [address] [place] [address], USAUrea nitrogen [Mass/Vol]12 mg/dLNormal7-25The [facility] ShawComment on above:Order Comment: No: Do not add to previous drawPerformed By: #### 48860, 70059 #### [facility] [address] [place] [address], USAD DIMER TESTon 51-73-3130Y-DIMER TEST<0.27Low0.27-0.49The [facility], [facility] ShawComment on above:Order Comment: No: Do not add to previous drawResult Comment: D-Dimer values of less than 0.50 ug/ml (FEU) are considered to be a negative predictor of thrombosis. However, the D-Dimer result should be used in conjunction with pretest probability and should not be used alone to diagnose a thrombotic event.Performed By: #### 77981, 57544 #### [facility] [address] [place] [id number], USAHEMOGLOBIN A1Con 58-91-9632Xzxdiew [Moles/Vol]111 mmol/L NormalThe [facility] ShawComment on above:Order Comment: No: Do not add to previous drawPerformed By: #### 76374 #### [facility] [address] [place] [address], XIDHpT7a (Bld) [Mass fraction]5.5 %Normal4.0-6.0The [facility], [facility] ShawComment on above:Order Comment: No: Do not add to previous drawPerformed By: #### 41403 #### [facility] [address] [address], USAMAGNESIUM BLOODon 18-21-7064Awcgtyqni [Mass/Vol]2.0 mg/dL Normal1.9-2.7The [facility], [facility] ShawComment on above:Order Comment: No: Do not add to previous drawPerformed By: #### 80238, 40318 #### [facility] [address] [address], USAPROTHROMBIN TIMEon 12-65-1598UQI Coag (PPP) [Relative time] 1.84 {INR}High0.91-1.16The [facility], [facility] ShawComment on above: Order Comment: No: Do not add to previous drawResult Comment: ACCCP RECOMMENDED INR FOR WARFARIN THERAPY ------- CONDITION INR PROPHYLAXIS OF VENOUS THROMBOSIS 2-3 (HIGH-RISK SURGERY) TREATMENT OF VENOUS THROMBOSIS 2-3 TREATMENT OF PULMONARY EMBOLISM 2-3 PREVENTION OF SYSTEMIC EMBOLISM: 2-3 ACUTE MYOCARDIAL INFARCTION TISSUE HEART VALVES VALVULAR HEART DISEASE ATRIAL FIBRILLATION RECURRENT SYSTEMIC EMBOLISM MECHANICAL HEART VALVE 2.5-3.5 FROM: ORAL ANTICOAGULANTS. MECHANISM OF ACTION, CLINICAL EFFECTIVENESS, AND OPTIMAL THERAPEUTIC RANGE. CHEST 1995;108:231S-246S.Performed By: #### 12575 #### [facility] [address] [facility] [place] [address], USAPT Coag (PPP) [Time]21.3 sHigh12.3-14.8The [facility], [facility] ShawComment on above:Order Comment: No: Do not add to previous drawResult Comment: ALL RESULTS MUST BE INTERPRETED WITH RESPECT TO BLOOD DRAWING ARTIFACT OR DILUTION ERROR OF ANTICOAGULANT AT THE TIME OF SAMPLING.Performed By: #### 02627 #### [facility] [address] [facility] [place] [address], [facility]ALTH SERVICESTROPONIN-Ion 14-22-5460Ocgablhl I.cardiac [Mass/Vol]0.00 ng/mLNormal0.00-0.04The [facility], [facility] ShawComment on above: Order Comment: No: Do not add to previous drawResult Comment: REFERENCE RANGES: 0.00 - 0.14 ng/ml NEGATIVE 0.15 - 0.25 ng/ml INDETERMINATE > 0.25 ng/ml INDICATIVE OF AN M.I.Performed By: #### 99355, 48468 #### [facility] [address] [facility] [place] [address], YCLVFV5bk 50-36-1931PKV 3RD GENERATION3.72 uIU/mLNormal 0.34-5.60The [facility] ShawComment on above:Order Comment: No: Do not add to previous drawPerformed By: #### 01149, 56710 #### [facility] [address] [facility] [place] [address], [facility] Vital Signs Date TimeVital SignValuePerforming KxylznhjrIopczzcb06-92-0376 11:28-0500Body .18 cmLisa Aichholz [employer] MOTHER-C Work Phone: [phone] [place], [place] [address]11-03-2025 11:28-0500 Body mass index (BMI) [Ratio]50.8 kg/m2Lisa Aichholz [employer]HER-C Work Phone: [phone]11-03-2025 11:28-0500 Body fuycjdorvut46.4 [degF]Kaila Aichholz [employer]HER-C Work Phone: [phone]11-03-2025 11:28-0500 Body .13 kgLisa Aichholz [employer] MOTHER-C Work Phone: [phone])[address]11-03-2025 11:28-0500 Diastolic blood xjnxhpus07 mm[Hg]Kaila Aichholz [employer] MOTHER-C Work Phone: [phone] [address]11-03-2025 11:28-0500 Heart rate86 /minLisa Aichholz [employer] MOTHER-C Work Phone: [phone] [place], [place] 595[address]11-03-2025 11:28-0500 Respiratory rate20 /minLisa Aichholz [employer] MOTHER-C Work Phone: [phone] [place], [place] [address]11-03-2025 11:28-0500 SaO2% (BldA) [Mass fraction]93 %Kaila Aichholz [employer]HER-C Work Phone: [phone]11-03-2025 11:28-0500 Systolic blood merpxvaj691 mm[Hg]Kaila Aichholz [employer]HER-C Work Phone: [phone]09-18-2025 08:44-0400 Body zdvjbgabvbj84.1 [degF]Kaila Aichholz [employer]HER-C Work Phone: [phone]09-18-2025 08:44-0400 Body anynte219.38 kgLisa Aichholz [employer]OR[employer] MOTHER-C Work Phone: [facility]09-18-2025 08:44-0400 Diastolic blood mm[Hg]Kaila Mariolahholz [employer] MOTHER-C Work Phone: [phone] [address]09-18-2025 08:44-0400 Heart rate75 /minLisa Aichholz [employer] MOTHER-C Work Phone: [phone] [place], [place] 5953209-18-2025 08:44-0400 Respiratory rate20 /minLisa Aichholz [employer] MOTHER-C Work Phone: [phone]09-18-2025 08:44-0400 SaO2% (BldA) [Mass fraction]95 %Kaila Aichholz [employer]HER-C Work Phone: [phone]09-18-2025 08:44-0400 Systolic blood kiputftl063 mm[Hg]Kaila Aichholz [employer] MOTHER-C Work Phone: [phone]06-18-2025 09:55-0400 Body mass index (BMI) [Ratio]50.98 kg/m2Lisa Aichholz SOROR[employer] MOTHER Work Phone: [facility] HospitalPhoprbssea94-79-8913 09:55-0400Body temperature 98.8 [degF]Kaila Aichholz SORORITY MOTHER Work Phone: [facility] HospitalPunepuging81-86-1747 09:55-0400Body ouypdm513.87 kgLisa Aichholz SORORITY MOTHER Work Phone: [facility] HospitalJurqrfowat37-69-0454 09:55-0400Diastolic blood mm[Hg]Kaila Aichholz SOROR[employer] MOTHER Work Phone: [facility] HospitalPobfzfukdf12-70-1345 09:55-0400Heart rate68 /min Kaila Aichholz S[employer]OR[employer] MOTHER Work Phone: [facility] HospitalPjbbdrgmnc35-47-0426 09:55-0400Respiratory rate20 /minLisa Aichholz SORORITY MOTHER Work Phone: [facility] HospitalOwqkvrwhqw27-17-0996 09:55-2956HcE8% (BldA) [Mass fraction]98 %Kaila Mariolajcarlosliset SORORITY MOTHER Work Phone: [facility] HospitalBqgcviaync46-04-4746 09:55-0400Systolic blood chbweluv417 mm[Hg]Kaila Gomesliset SORORITY MOTHER Work Phone: [facility] HospitalLfoxvxekmy49-60-8537 09:43-0500Diastolic blood jhodpabv274 mm[Hg]Harleen Ly DO Work Phone: c[facility] CenterNtpsxu03-69-9430 09:43-0500Respiratory rate 16 /minCatherine Ly DO Work Phone: c[facility] Medical CenterUoejmq87-20-2885 09:43-2057VpY9% (BldA) [Mass fraction]97 %Harleen Ly DO Work Phone: c[facility] Medical CenterCbqtcj26-50-8282 09:43-0500Systolic blood dgsibpzj439 mm[Hg]Harleen Ly DO Work Phone: c[facility] CenterXovxzg46-05-2153 09:23-0500Body temperature 97 [degF]Harleen Ly DO Work Phone: c[facility] Medical CenterDparaw78-06-4964 07:49-0500Body .7 cmCatherine Ly DO Work Phone: c[facility] CenterSuecri73-79-7747 07:49-0500Body .7 kgCatherine Ly DO Work Phone: c[facility] CenterCtxbkv96-61-4126 11:43-0500Body jnqabc117.7 kgCatherine Ly DO Work Phone: c[facility] CenterSzapit90-97-7632 11:43-0500Diastolic blood rvvkmtqo58 mm[Hg]Harleen Ly DO Work Phone: c[facility] CenterMbeefh33-10-6393 11:43-0500Heart rate78 /min Harleen Ly DO Work Phone: c[facility] Medical CenterTjnnxj94-20-0901 11:43-0500Systolic blood notayhtw325 mm[Hg]Harleen Macdonald DO Work Phone: cSum[facility] Medical CenterXursdp05-82-6803 07:55-0500Body .72 cmLisa Mariolahreinaz Work Phone: [facility] [facility]11-17-2023 07:55-0500 Body xctgek020.33 kgLisa Garnetthholz Work Phone: [facility] Encounters Encounter DateEncounter TypeCare ProviderFacilityStart: 03-20-2025 End: 24-68-0754acocyjuamkXkee J Aichholz SORORITY MOTHER-C Work Phone: -[facility] ClydeStart: 03-20-2025 End: 20-47-9276Sfagzug encounter procedureLisa Kristi Goldstein SORORITY MOTHER-C-[facility] Work Phone: Start: 02-23-2025 End: 69-75-9570sldfchjriaApvd J Aichreinaz SORORITY MOTHER-C Work Phone: [facility] Work Phone: Start: 02-23-2025 End: 64-26-9236Opbzasw encounter procedureAdam Nguyen DO-Flu VaccineStart: 02-02-2025 End: 89-69-5599zrhavtczcmIisi J Aichholz SORORITY MOTHER-C Work Phone: [facility] Work Phone: Start: 02-02-2025 End: 46-27-2513Rfvxqmj encounter procedureLisa Kristi Goldstein SORORITY MOTHER-C-[facility] Work Phone: Start: 25-09-6765Xhgrmvr encounter procedureLisa Sarmientoz SORORITY MOTHER-C [facility] Phone: [facility] 01-07-2025 End: 07-82-5847FootwtMesq Aichholz SORORITY MOTHER Work Phone: [facility] CWM FMComment on above:Gout, unspecified; Type 2 diabetes mellitus without complication, without long-term current use of insulin (HCC); Hypothyroidism, unspecified typeStart: 12-19-2024 End: 18-15-1311XqsieyNxiu Aichholz SORORITY MOTHER Work Phone: noms CWM FMComment on above:Dog bite, initial encounter (Primary Dx)Start: 12-12-2024 End: 35-98-6991zzqzkceqyjGECSQBCrystal Clinic Orthopedic Center Start: 11-24-2024 End: 12-58-0171Lbqmqffth Result EncounterLisa Aichholz SORORITY MOTHER Work Phone: noms External Department UnsolicitedStart: 11-24-2024 End: 75-12-2390Njznvaewl Result EncounterLisa Aichholz SORORITY MOTHER Work Phone: noms External Department UnsolicitedStart: 11-09-2024 End: 18-32-2084FrtbalKedv Aichholz SORORITY MOTHER Work Phone: noms CWM FMComment on above:Primary hypertension Multiple lung nodules (Primary Dx)Start: 11-02-2024 End: 37-38-1223Tcezct flowsheetLisa Aichholz SORORITY MOTHER Work Phone: noms CWM FMStart: 11-02-2024 End: 23-73-1549Xpipic flowsheetLisa Aichholz SORORITY MOTHER Work Phone: [facility] CWM FMStart: 11-02-2024 End: 05-11-8133[place] outpatient visit 25 minutesLisa Aichholz SORORITY MOTHER Work Phone: noms CWM FMComment on above:Type 2 diabetes mellitus without complication, without long-term current use of insulin (HCC) (Primary Dx); Sleep apnea, obstructive; Multiple lung nodules; Atrial fibrillation, unspecified type (HCC); Primary hypertension ; Asymptomatic microscopic hematuria; Hypothyroidism, unspecified type ; Gout, unspecified cause, unspecified chronicity, unspecified site; Mixed hyperlipidemia ; Morbid (severe) obesity due to excess calories ([facility]-HCC); Body mass index (BMI) 45.0-49.9, adult ([facility]); Encounter for screening mammogram for malignant neoplasm of breast; History of tobacco abuseStart: 11-02-2024 End: 09-25-8401nauhpukrerWXYH AICHLEROYot AvailableStart: 10-17-2024 End: 98-98-0201Wwfrjrowq Result EncounterLisa Gomesliset SORORITY MOTHER Work Phone: noms External Department UnsolicitedStart: 10-17-2024 End: 43-94-0752Acrsyhpme Result EncounterLisa Goldstein SORORITY MOTHER Work Phone: noms External Department UnsolicitedStart: 07-11-2024 End: 58-15-1086KztnxuBjtm Aichholjosi SORORITY MOTHER Work Phone: [facility] CWM FMComment on above:Hypothyroidism, unspecified type ([facility]); Gout, unspecified; Type 2 diabetes mellitus without complication, without long-term current use of insulin ([facility]/HCC)Start: 05-24-2024 End: 78-85-0222jicqqesxzeUDMJZEXMercy Healthtart: 05-11-2024 End: 46-23-5342TsqcaqChiy Aichliset SORORITY MOTHER Work Phone: noms CWM FMComment on above:Type 2 diabetes mellitus without complication, without long-term current use of insulin ([facility])Start: 04-08-2024 End: 70-76-0699JjspaiBdzr Eliseoliset SORORITY MOTHER Work Phone: [facility] CWM FMComment on above:Acute bacterial conjunctivitis, unspecified laterality (Primary Dx)Start: 03-02-2024 End: 73-99-5114HpnivzAded Naderer MD Work Phone: [facility] CWM FMComment on above:Mixed hyperlipidemia ([facility]/HCC)Start: 02-12-2024 End: 47-13-5882BmspilXrel Naderer MD Work Phone: [facility] CWM FMComment on above:Primary hypertension ([facility]/HCC)Start: 01-17-2024 End: 31-06-6290MtujhcLrzy Aichholz SORORITY MOTHER Work Phone: noms CWM FMComment on above:Mixed hyperlipidemia ([facility]); Hypothyroidism, unspecified type ([facility]); Primary hypertension ([facility]); Type 2 diabetes mellitus without complication, without long-term current use of insulin ([facility]); Gout, unspecifiedStart: 01-06-2024 End: 72-93-1525BjhxssWjxm Aichholz SORORITY MOTHER Work Phone: noms CWM FMComment on above:Acute cystitis without hematuria (Primary Dx)Start: 38-18-2911Iqcudye encounter procedureLisa Aichholz SORORITY MOTHER Work Phone: noms HealthcareStart: 12-22-2023 End: 26-94-7552dwsbvudioyIUZM AICHHOLZNot AvailableStart: 10-01-2023 End: 82-70-1070Klwcktmxb Result EncounterLisa Aichholz SORORITY MOTHER Work Phone: noms External Department UnsolicitedStart: 10-01-2023 End: 81-64-6439Wsgavgqhp Result EncounterLisa Aichholz SORORITY MOTHER Work Phone: noms External Department UnsolicitedStart: 06-30-2023 End: 85-88-9792Ibnvcqlaz Result EncounterLisa Aichholz SORORITY MOTHER Work Phone: noms External Department UnsolicitedStart: 06-30-2023 End: 55-55-5548Ojvjhsntc Result EncounterLisa Aichholz SORORITY MOTHER Work Phone: noms External Department UnsolicitedStart: 06-24-2023 Orders OnlyLisa Aichholz SORORITY MOTHER Work Phone: noms CWM FMComment on above:Multiple lung nodules (Primary Dx)Start: 06-23-2023 End: 61-71-9174Qnglfnyxv Result EncounterGeneric External Data ProviderNOMS External Department UnsolicitedStart: 06-23-2023 End: 80-65-2725Pmiljctby Result EncounterGeneric External Data ProviderNOMS External Department UnsolicitedStart: 29-60-9881Xixxluoah encounterCatherine Ly DO Work Phone: GastroenterologyComment on above:ResultsStart: 06-18-2023 End: 02-55-4863Nolpyjlfg Result EncounterGeneric External Data ProviderNOMS External Department UnsolicitedStart: 06-18-2023 End: 27-22-6468Iwuqfiueo Result EncounterGeneric External Data ProviderNOMS External Department UnsolicitedStart: 91-58-9195zwrnbcsflaDNWEDUN MORSCHER [facility]: [facility]18[facility]2023 End: 21-37-6261Vfpqmdwogx hospital visit by physicianCatherine Ly DO Work Phone: proceduresComment on above:History of colon polyps [Z86.010]Start: 04-29-2023 End: 29-19-1948mvdycmueztKVXJDLJTO LYFacility:[facility]tart: 04-29-2023 End: 64-64-5584Qautgdr encounter procedureCatherine Ly DO Work Phone: GastroenterologyComment on above:History of colon polyps (Primary Dx)Start: 49-87-9763Nignrynvn encounterCarmen Jacob MD Work Phone: GastroenterologyComment on above:AppointmentStart: 04-03-2023 End: 11-82-7825unthcmcamkGogn J Angelita Work Phone: [facility] Work Phone: Start: 04-03-2023 End: 97-55-8256Eoiqcmz encounter procedureLisa Mariolahholz Work Phone: [facility] Work Phone: Start: 38-84-4583znlupyqywfDlrgpurw:MIHAELA Otooletart: 09-15-2022 End: 53-46-8869yppvmgacohIED KAILA AICHHOLZFacility:Z1Osedq: 05-01-2022 End: 54-87-9628wrqtpqerygNQS KAILA AICHHOLZFacility:Z3Idvxa: 03-13-2022 End: 99-49-6935ieredysxhzJYY KAILA AICHHOLZFacility:H7Mizty: 11-02-2020 End: 83-42-5233oihnkjkrrgANBG AICHHOLZFacility:[facility]art: 07-26-2020 End: 76-14-1764nxxezjskdfOYDO AICHHOLZFacility:[facility]: 04-16-2020 End: 52-04-6920Lfatwnyprz and management of inpatientSTEPHEN REINECK Facility:[facility]: 03-29-2020 End: 16-85-3834Pwvbkdfdop and management of inpatientSARMED MANSURFacility:[facility] Procedures DateProcedureProcedure DetailPerforming ClinicianStart: 52-33-0927GW TOMOSYNTHESIS SCREENING BILisa Aichholz SORORITY MOTHER Work Phone: Start: 45-66-8257EV LUNG SCREENING LOW DOSELisa Aichholz SORORITY MOTHER Work Phone: Start: 18-39-3292AtracntxfzqGsxr Aichholz SORORITY MOTHER Work Phone: Start: 13-36-8543JCR CBC WITH AUTO DIFFLisa Aichholz SORORITY MOTHER Work Phone: Start: 65-97-2971YTN HEMOGLOBIN Z4ILoay Aichholz SORORITY MOTHER Work Phone: Start: 67-71-2740AR CHEST WO CONLisa Aichholz SORORITY MOTHER Work Phone: Start: 28-72-0451BD CHEST WO CONLisa Aichholz SORORITY MOTHER Work Phone: Start: 03-21-8523VZ ECHO DOPPLER COMPLETEGeneric External Data ProviderStart: 17-47-7127Rzdwsraivxq flx dx w/collj spec when pfrmdCatherine Ly DO Work Phone: start: 41-81-8269ZXZ SURGICAL PATHOLOGYGeneric External Data ProviderStart: 56-30-8292Dokx bld gluc mntr dev cleared fda spec home useYann Kuhn MD Work Phone: Start: 06-18-2023 End: 93-14-3784CnchqeyijchJcgdvhe External Data ProviderStart: 04-03-2023 Positron emission tomography with computed tomographyKaila Goldstein Work Phone: Start: 59-59-5745NiuympjcqtoMlft Aichholz SORORITY MOTHER Work Phone: Start: 83-92-2506Ktketqccqxx w/biopsy single/multiple YASEEN ALASTALStart: 35-44-6379HrprqzwvfizPlzkysjtk Ly DO Work Phone: start: 00-06-4614KRDDINRH OF RECTUM, ENDO, DIAGNYASEEN ALASTALStart: 42-22-4400JSLYRVBJ OF SIGMOID COLON, ENDO, DIAGNYASEEN ALASTAL Start: 60-82-9295NKEWOILYOZUO OF OTHER GAS INTO RESP TRACT, VIA OPENINGSARMED MANSURStart: 05-03-4034ZIUPUGSOHWL OF MULTIPLE CORONARY ARTERIES USING OTH KARINE ARANGO Plan of Treatment DateCare ActivityDetailAuthorStart: 83-88-7009Fnnbgpzwc for malignant neoplasm of colonNOMS HealthcareStart: 93-73-8789Wcneudaef for malignant neoplasm of colonNOMS HealthcareStart: 26-06-2101Mpqtfyaot for malignant neoplasm of breast MammogramNOMS HealthcareStart: 87-08-4161Jyyqh screening for proteinDiabetes: Urine Protein ScreeningNOMS HealthcareStart: 01-26-8006Uwznhfmeji A1c measurementDiabetes: Hemoglobin R2WFBCV HealthcareStart: 02-02-2025 End: 92-72-5631Dcajibo encounter yesenbxpz90/18/2025 8:40 AM EDT Office Visit [facility] [address] [place] [id number] Kaila Goldstein NP [address] [place] [phone] [facility] CWM FMStart: 08-06-2025Medicare Annual Wellness (AWV) Medicare Annual Wellness (AWV)NOM[facility] HealthcareStart: 76-90-5176Xyrzlewaajar Vaccine: 65+ Years (1 of 2 - PCV)Pneumococcal Vaccine: 65+ Years (1 of 2 - PCV) NOMS HealthcareComment on above:Postponed from 1962 (Patient Refused) Postponed from 09/30/1975 (Patient Refused)Start: 11-09-2024 End: 85-33-8519KO Chest WO contrastCT chest wo IV contrast Imaging Routine Multiple lung nodules Expected: 11/09/2024, Expires: 11/09/2025[facility] Work Phone: Comment on above:Expected: 11/09/2024, Expires: 11/09/2025Start: 11-02-2024 End: 88-58-2186XK Chest for screening WO contrastCT lung screening low dose Imaging Routine History of tobacco abuse Expected: 11/02/2024, Expires: 0 11/02/2025[facility] HealthcareComment on above:Expected: 11/02/2024, Expires: 11/02/2025Start: 11-02-2024 End: 47-65-7663PI Breast - bilateral ScreeningBilateral screening mammogram Imaging Routine Encounter for screening mammogram for malignant neoplasm of breast Expected: 11/02/2024 (Approximate), Expires: 01/02/2026[facility] Work Phone: Comment on above:Expected: 11/02/2024 (Approximate), Expires: 01/02/2026Start: 11-02-2024 End: 16-76-8878Jdpntdx encounter ktprcypsy38/18/2025 11:30 AM EDT Office Visit [facility] [address] [place] [address] Kaila Goldstein NP [address] [place] [phone] [facility] CWM FMStart: 92-42-0713Satcl screening for protein Diabetes: Urine Protein ScreeningNOID HealthcareStart: 79-82-5103Hkoirvlj screeningDiabetes: Retinopathy ScreeningNOID HealthcareStart: 08-04-2024 End: 07-46-7824Rqdbnmf encounter shyrbkyff89/20/2025 1:00 PM EDT [facility] [address] [place] [address] Kaila Goldstein, SORORITY MOTHER [address] [place] [address] [facility] FMStart: 06-23-2024 End: 49-81-2228Gjqolwm encounter qvzktyfcj75/06/2025 9:20 AM EST Office Visit NOMLili [facility] [address] [place] [address] Kaila Goldstein, ANA [address] [place] [phone] [facility] FMStart: 49-48-2549Iohdoiioe for malignant neoplasm of colonChillicothe ClinicStart: 81-24-8310Vybueokqn for malignant neoplasm of breastMammogramNOID HealthcareStart: 51-93-8328Pvttqrwrjz A1c measurement Diabetes: Hemoglobin Y1HTVEC HealthcareStart: 07-25-2024Medicare Annual Wellness (AWV)Medicare Annual Wellness (AWV)NOM HealthcareStart: 01-44-3718Wknoelpcx vaccinationInfluenza Vaccine (#1)NOMS HealthcareComment on above:Postponed from 01/16/2023 (Patient Refused)Start: 13-74-9159Urcmm screening for protein Diabetes: Urine Protein ScreeningNOID HealthcareStart: 84-78-9233Aocrdzaokkmv Vaccine: 65+ Years (1 - PCV)Pneumococcal Vaccine: 65+ Years (1 - PCV)NOMS HealthcareComment on above:Postponed from 1962 (Other Medical Reasons) Start: 08-04-2023 End: 91-65-4178Fbduprx encounter kpdwdhret35/19/2024 8:40 AM EDT Office Visit [facility] [address] [place] [phone] Kaila Goldstein NP [address] [place] [address] [facility] FMStart: 06-24-2023 End: 16-23-8457GA Chest WO contrastCT chest wo IV contrast Imaging Routine Multiple lung nodules Expected: 06/24/2023 (Approximate), Expires: 06/24/2024 [facility] Work Phone: Comment on above:Expected: 06/24/2023 (Approximate), Expires: 06/24/2024Start: 18-21-0006Tevyjnp Directive DiscussionAdvance Directive DiscussionCleveland Clinic Lutheran Hospitaltart: 63-75-7316Hywgarhiow Assessment Depression AssessmentCleveland Clinic Lutheran Hospitaltart: 31-99-2404Pwpcb-19 Vaccine ( season)Covid-19 Vaccine ( season)[facility]: 58-50-1190Huutojzoc vaccinationInfluenza Vaccine (#1)[facility]: 74-01-7693Gsbgscc Directive DiscussionAdvance Directive DiscussionCleveland Clinic Lutheran Hospitaltart: 84-68-1410Hhullrwqsw AssessmentDepression AssessmentCleveland Clinic Lutheran Hospitaltart: 39-46-2205Dbhncojgs for malignant neoplasm of colonSub[facility] Start: 99-30-3527Hqrw Density ScreeningBone Density ScreeningSuburban [facility] Start: 16-30-5935Tmlgomnilnle Vaccine: 65+ (1 - PCV)Pneumococcal Vaccine: 65+ (1 - PCV)[facility]: 00-28-5388Ldetkfihk for osteoporosisBone Density ScreeningCleveland Clinic Luther[facility] Hospitaltart: 85-98-2614DMT Vaccine (1 - 1-dose 60+ series)RSV Vaccine (1 - 1-dose 60+ series)[facility]: 25-54-9478Zqjvxesq Vaccine (1 of 2)Shingrix Vaccine (1 of 2)[facility]: 2001 Cologuard (FIT-DNA)Cologuard (FIT-DNA)[facility]: 2001 ColonoscopyColonoscopyCleveland Clinic Luther[facility] Hospitaltart: 76-83-8999Tcnjtrbsag Cancer ScreeningColorectal Cancer ScreeningCleveland Clinic Luther[facility] Hospitaltart: 69-51-3686LK ColonographyCT ColonographyCleveland Clinic Lutheran Hospitaltart: 98-35-5259Sxbbdfqa Screening Diabetes ScreeningCleveland Clinic Lutheran Hospitaltart: 14-31-6435Txkdw Occult BloodFecal Occult BloodCleveland Clinic Lutheran Hospitaltart: 40-23-9670Ajevz 1996 panel - Serum or Plasma Lipid ScreeningCleveland Clinic Lutheran Hospitaltart: 06-72-2702Neear panelLipid Screening [facility]: 08-40-4761Hbltencdx for malignant neoplasm of colon [facility]: 19-41-2288QlzgqlcevvbqqQotiuimpysxmjDetehreqa Clinic Start: 45-06-2878McmvomoichqNeudfjkdb ScreeningCleveland Clinic Luther[facility] Hospitaltart: 1996 Screening for malignant neoplasm of breastMammogram ScreeningSub[facility] & [facility] Start: 59-57-0218Wzcpejdxyttl Vaccine: 65+ Years (1 of 2 - PCV)Pneumococcal Vaccine: 65+ Years (1 of 2 - PCV)[facility] HealthcareStart: 96-35-6107Oikly microalbumin profileDTaP,Tdap,Td Vaccine (1 - Tdap)[facility]: 45-96-0329Qtwabq PCP Team Chronic Disease VisitAnnual PCP Team Chronic Disease VisitCleveland Clinic Lutheran Hospitaltart: 81-23-2343JX Controlled (<130/80)BP Controlled (<130/80)[facility]: 33-81-3476Eszqoclag C ScreeningHepatitis C ScreeningCleveland Clinic Lutheran Hospitaltart: 19-77-8517Tigxafxan C screeningHepatitis C ScreeningCleveland Clinic Luther[facility] Hospitaltart: 97-52-9419Lkhrxmhnckrc Vaccine: 65+ (1 of 2 - PCV)Pneumococcal Vaccine: 65+ (1 of 2 - PCV)[facility]: 04-01-1956 Covid-19 Vaccine (#1)Covid-19 Vaccine (#1)[facility]: 1955 Hemoglobin A1c measurementDiabetes: Hemoglobin A7KNLZY HealthcareStart: 39-13-5826Yaqqyihnp for malignant neoplasm of colonINTER[facility] End: 03-07-9514Ehasvemvf colonoscopyCOLONOSCOPY SCREENING Endoscopy Routine History of colon polyps 1 Occurrences starting 04/29/2023 until 04/29/2024 [facility] Work Phone: comment on above:1 Occurrences starting 04/29/2023 until 04/29/2024[facility] PATHOLOGYCl[facility] Hospital Work Phone: comment on above:Release Upon Ordering for 1 Occurrences starting 06/18/2023, [facility] Immunizations Immunization DateImmunizationNotesCare VmadzsesOmmgrluq13-22-0870wivbde vaccine recombinantLisa Aichholz SORORITY MOTHER Work Phone: [facility] HospitalHaxdcufvqe30-33-5140ufprae vaccine recombinant Kaila Aichholz SORORITY MOTHER Work Phone: [facility] Payers DatePayer CategoryPayerPolicy [id number] 2025Medicare [id number] 2023Medicare (Managed Care) [id number] [facility] [id number] 2022-Present [address] [place] [address] [id number] 2022Medicare [id number] [id number] [id number] [id number] 2.16.840.1.217512.3.57[id number] 2.16.840.1.444814.3.57[id number] 2.16.840.1.585831.3.57[id number] 2.16.840.1.411572.3.57[id number] 2.16.840.1.156362.3.57[id number] 2.16.840.1.499478.3.57[id number] 2.16.840.1.974241.3.57[id number] 2.16.840.1.42[id number] Social History DateTypeDetailFacilityTobacco smoking status NHISUnknown if ever smokedSelect Medical [facility] Work Phone: Start: 60-12-4613Kot Assigned At BirthFeGlenbeigh HospitalTobacco smoking status NHISTobacco smoking consumption unknownCleveland Clinic Luther[facility] Hospitaltart: 08-71-3053Kwq Assigned At BirthNot on file [facility]: 04-29-2023 End: 84-17-7810Tsnxcs identityNot on fileCleveland Clinic Luther[facility] Hospitaltart: 04-29-2023 End: 33-23-2534Gbyyoky smoking status NHISEx-smokerCleveland Clinic Lutheran Hospitaltart: 05-18-1975 End: 21-04-2022Ehsgveb of tobacco useCurrent smokerCleveland Clinic Lutheran Hospitaltart: 05-18-1975 End: 31-25-7418Ssbnplm of tobacco useCigarette SmokerCleveland Clinic Lutheran Hospitaltart: 04-29-2023 End: 76-97-0289Kfnseyzehc smoked current (pack per day) - Reported1.5Cmount [address] ClinicStart: 42-21-9929Coyhwmc use and exposureSmokeless tobacco non-user [facility]tart: 44-77-1703Jmhhwscm Score (1-100), lower number is lower lfay68HcqczgnpgCleveland Clinic Lutheran Hospitaltart: 05-04-2023 End: 18-92-7130Kadonmc intakeEx-drinker (finding)[facility] HospitalStart: 10-95-4413Zwhqguc CommentLast smoked 10-15 yearsSt. Lukes Des Peres HospitalStart: 05-03-2023 Alcohol Commentcaffeine:sodaNORanken Jordan Pediatric Specialty HospitalStart: 15-75-1313Dtgksg identity Identifies as female gender (finding)[facility] HospitalStart: 55-65-6927Ggkfken CommentLast smoked 10-15 years pt quit 2007[facility] HospitalSexFemale (finding) [facility] Medical Equipment Procedure CodeEquipment CodeEquipment Original TextEquipment IdentifierDatesUse as [id number]: 05-22-2023 End: each 3 (three) times a day as needed (3 times daily prn) [id number]: each by Other route [id number]: 10-19-2023 End: 18-30-7487Hiz once a [id number]: 05-12-2024 Functional Status YtgxUctlojqmzzKawshgWyxwrspb97-80-9840Ssoavsshd depression scale (GDS).short version [facility] SystemVbanzqhzwx32-22-6116Guj difficult have these problems made it for you to do your work, take care of things at home, or get along with other people?Not difficult at all 12/22/2023 10:29 AM Jazz Garcia MA Not difficult at allSt. Lukes Des Peres HospitalIalatxsgva38-73-1128Pgwhpgv Health Questionnaire 2 item (PHQ-2) [Reported][facility] HospitalJsacbureft40-67-3020Knpuidt Health Questionnaire 2 item (PHQ-2) [Reported][facility] Clinical Notes 04-01-2020 to 02-02-2025 Note Date & YfytLxcvQghttnfu67-37-0330 Evaluation note* Diagnosis Onset Date Resolution Status Admit Date Atrial fibrillation acuteSeptember 2024 8:12amHTN (hypertension)acuteSeptember th, 2025 8:12amHyperlipidemiaacuteSeptember 2024 8:12amMorbid (severe) obesity due to excess caloriesacutept2024 8:12amSleep apnea, obstructiveacute February 02, 2025 8:12amType 2 diabetes mellitusacuteSept2024 8:12am [facility] Work Phone: 1(704) 325-514309-18-2025 Evaluation note* Diagnosis Onset Date Resolution Status Admit Date Atrial fibrillation acuteSept2024 8:12amHTN (hypertension)acuteSept2024 8:12amHyperlipidemiaacuteSept2024 8:12amMorbid (severe) obesity due to excess caloriesacutept2024 8:12amSleep apnea, obstructiveacute February 02, 2025 8:12amType 2 diabetes mellitusacuteSept2024 8:12amHTN (hypertension)acuteNov2024 11:05amMorbid (severe) obesity due to excess caloriesacuteNov2024 11:05amType 2 diabetes mellitus acuteNov2024 11:05am [facility] Work Phone: 1(986) 736-332608-04-2025 Telephone encounter Note* Telephone Encounter - Kaila Goldstein NP - 12/19/2024 1:31 PM EDT Dog bite (daughters dog) bite yesterday, left hand over the 4th and 5th fingers and MCP area, mild bruising no erythema Will cover with augmentin atb and suggest she update adacel, if worsening in sxs notify provider [place] [facility] Jhcnxhzcue55-17-5648 Miscellaneous Notes* Telephone Encounter - Kaila Goldstein NP - 12/19/2024 1:31 PM EDT Dog bite (daughters dog) bite yesterday, left hand over the 4th and 5th fingers and MCP area, mild bruising no erythema Will cover with augmentin atb and suggest she update adacel, if worsening in sxs notify provider [place] documented in this encounterSt. Lukes Des Peres HospitalJyvcwudsve39-68-2069 NoteUT Cardiology - [facility] Subjective Hortensia Bates is a 69 y.o. year old female patient being seen for a 6 month follow up. Patient states she's not feeling to bad. Patient denies chest pain, dizziness. Patient complains of leg swelling, fatigue. Patient states her PCP ordered a Chest CT and the scaffolder pointed out a an enlargement in her [...] Alcohol use: Not Currently Drug use: Never HPI Hortensia is seen in follow-up. She is [...] MG) AT BEDTIM (more content not included)... [facility]06-18-2025 Instructions* Patient Instructions * Kaila Goldstein NP - 11/02/2024 11:30 AM EDT Mammogram Low dose CT scan Ozempic documented in this encounterSt. Lukes Des Peres [id number] History of Present illness Narrative* JAZZ MELCHOR - 11/02/2024 11:30 AM EDT Pain in hands, shoulders, hips, knees, ect. Happens often in the evening. Pt states that sometimes the pain becomes bad where her hands become stiff and unable to close her hands until morning. Pt would like to discuss weight loss and motivation. Pt had retinopathy last week- [facility]. I called over to [facility], I spoke with the bilingual medical receptionist who verified that pt did have an exam last week however she will have to talk to the DR to see if a retinopathy screening was performed if so they will fax over * Kaila Goldstein NP - 11/02/2024 11:30 AM EDT Images from the original note were not included. Hortensia Bates is a 69 y.o. female presents with chief complaint of Diabetes HPI: Diabetes She presents for her follow-up diabetic visit. She has type 2 diabetes mellitus. Her disease coursehas been stable. There are no hypoglycemic associated symptoms. Pertinent negatives for hypoglycemia include no dizziness, headaches, nervousness/anxiousness, seizures or tremors. Pertinent negativesfor diabetes include no chest pain, no foot paresthesias, no polydipsia, no polyphagia, no polyuriaand no visual change. There are no hypoglycemic complications. Symptoms are stable. Pertinent negatives for diabetic complications include no nephropathy, peripheral neuropathy, PVD or retinopathy. Risk factors for coronary artery disease include diabetes mellitus, dyslipidemia, hypertension, obesity and sedentary lifestyle. Current diabetic treatment includes oral agent (monotherapy). She is compliant with treatment all of the time. Her weight is increasing steadily. She rarely participates inexercise. Her overall blood glucose range is 110-130 mg/dl. An OFELIA inhibitor/angiotensin II receptor rosa is being taken. She does not see a reproduction artist.Eye exam is current. Hypertension This is a [...] and diuretics. The current treatment provides significant improvement.There are no compliance problems. There is no history of heart failure, PVD or retinopathy. SUBJECTIVE: MEDICATIONS: Current Outpatient Medications Medication Instructions Alcohol Swabs pads Does not apply allopurinol (ZYLOPRIM) 100 mg, Oral, Daily apixaban (ELIQUIS) 5 mg, Oral, 2 times daily atorvastatin (LIPITOR) 10 mg, Oral, Every evening Blood Glucose Monitoring Suppl (Blood Glucose Monitor System) w/Device kit 1 kit, Does not apply, 3times daily PRN calcium carbonate (CALCIUM 600) 1,500 mg, Oral, 2 times daily with meals carvedilol (COREG) 6.25 mg, Oral, 2 times daily with meals glucose blood (Availink Ultra) test strip Use once a day [...] (HCC) NSR, continue current meds Follows with [facility] every 6 months Relevant Medications Semaglutide,0.25 or [...] on the importance of sm oking cessation. Relevant Orders CT lung screening low [...] supplies your machine and tubing/filters etc: [employer] Type 2 diabetes mellitus (HCC) - Primary [...] Morbid (severe) obesity due to excess calories ([facility]) Discussed with patient their BMI (actual, verses [...] pen-injector Body mass index (BMI) 45.0-49.9, adult ([facility]) Encounter for screening mammogram for malignant neoplasm of breast Relevant Orders Bilateral screening mammogram * Kaila Goldstein NP - 11/02/2024 10:56 AM EDTAssociated Problem(s): History of tobacco abuse Patient meets [...] on the importance of sm oking cessation. * Kaila Goldstein NP - 11/02/2024 6:13 AM EDTAssociated Problem(s): Hyperlipidemia On statin therapy Check labs yearly and prn dose changes * Kaila Goldstein NP - 11/02/2024 6:13 AM EDTAssociated Problem(s): Gout Current med: allopurinol Check labs yearly, and prn dose change or changes in sxs * Kaila Goldstein NP - 11/02/2024 6:12 AM EDTAssociated Problem(s): Type 2 diabetes mellitus (HCC) Check [...] arb A1c: 6.3% 10/17/24 Will add ozempic * Kaila Goldstein NP - 11/02/2024 6:12 AM EDTAssociated Problem(s): Hypothyroidism Current meds: levothyroxine Check labs yearly, and prn dose changes or changes in sxs * Kaila Goldstein NP - 11/02/2024 6:11 AM EDTAssociated Problem(s): Morbid (severe) obesity due to excess calories ([facility]) Discussed with patient their BMI (actual, verses recommended). We have also discussed lifestyle modifications: attempts to perform physical activity as chronic conditions allow, also to monitor dietary intake: increasing protein/fruits/veggies and lowering carb intake (unless contraindicated). Limit sodas, juices, and sugary drinks. * Kaila Goldstein NP - 11/02/2024 6:11 AM EDTAssociated Problem(s): Asymptomatic microscopic hematuria Check urine sample yearly and prn changes in sxs * Kaila Goldstein NP - 11/02/2024 6:10 AM EDTAssociated Problem(s): Hypertension Please check blood pressure daily and record DASH diet Limit caffeine Take medication as directed Contact office if chest pain, pressure, dizziness, shortness of breath, swelling legs Recommend slow position changes Current meds: carvedilol, losartan * Kaila Goldstein NP - 11/02/2024 6:10 AM EDTAssociated Problem(s): Atrial fibrillation (HCC) NSR, continue current meds Follows with [facility] every 6 months * Kaila Goldstein NP - 11/02/2024 6:09 AM EDTAssociated Problem(s): Multiple lung nodules Check yearly CT chest * Kaila Goldstein NP - 11/02/2024 6:09 AM EDTAssociated Problem(s): Sleep apnea, obstructive You have a [...] supplies your machine and tubing/filters etc: [employer] documented in this encounterSt. Lukes Des Pe[facility] [id number] NotePatient here for 6 mo follow up afib, [...] ). All other systems reviewed and are negative.[facility] 05-24-2024 NoteCardiovascular Medicine [facility] SUBJECTIVE Chief Complaint Patient presents [...] T4 0.99 05/15/23 Rosemarie (more content not included)...[facility] 04-08-2024 Telephone encounter Note* Telephone Encounter - Kaila Goldstein NP - 04/08/2024 6:33 PM EST Pt contacts provider with c/o pink eye symptoms, requesting atb be sent in. Good hand washing, and if not better after a few days contact office, if acute eye pain or blurry vision [facility] [id number] Miscellaneous Notes* Telephone Encounter - Kaila Goldstein NP - 04/08/2024 6:33 PM EST Pt contacts provider with c/o pink eye symptoms, requesting atb be sent in. Good hand washing, and if not better after a few days contact office, if acute eye pain or blurry vision go to ER documented in this encounterSt. Lukes [facility] [id number] History of Present illness Narrative* Kaila Goldstein NP - 06/24/2023 10:52 AM EST Due for fu CT chest 3 month for lung nodules documented in this encounterNORanken Jordan Pediatric Specialty [id number] Miscellaneous Notes* Telephone Encounter - Windy Caba Ma - 06/23/2023 2:34 PM EST Recall entered * Telephone Encounter - Sara Do RN - 06/23/2023 10:21 AM EST Left voice message regarding results and advised to call office with any further questions. Please enter 3 year recall colonoscopy. Thank you Sara Do RN * Telephone Encounter - Sara Do RN - 06/23/2023 10:21 AM EST ----- Message from Harleen Macdonald DO sent at 06/22/2023 1:12 PM EST ----- Please review path from colonoscopy with pt which reveals multiple SSP and TA removed, a couple hyperplastic polyps and focal inflammation in the rectum rather than true polyp-not concerning. Repeat in 3 yrs. Thanks cl documented [facility] History and physical note * Harleen Macdonald DO - 06/18/2023 9:00 AM EST HISTORY AND PHYSICAL Hortensia Bates, 67 year [...] None Harleen Macdonald DO documented in this encounterSub[facility]12-13-2023 NoteHNO ID: [id number] Author: Harleen Macdonald DO Service: ? Author Type: Physician Type: Progress Notes Filed: 04/29/2023 12:49 PM Note Text: Chief Compliant: Consultation requested by Dr. Kaila Goldstein, SIRI.AUTO SUSPENSION AND STEERING MECHANIC for an opinion regarding hx of colon [...] other GI malignancy. No records available in [place] or [place] regarding this office visit. ALLERGIES Allergen Reactions [...] from her prior colonoscopy -schedule colonoscopy at [place]. 2 day bowel p (more content not included)... [facility]12-13-2023 History of Present illness Narrative* RenaeHarleenDO - 04/29/2023 12:20 PM EST Chief Compliant: Consultation requested by Dr. Kaila Goldstein, PRECAST WORKER.AUTO SUSPENSION AND STEERING MECHANIC for an opinion regarding hx of colon [...] LEW, dizziness, fevers, chills, nausea, vomiting, GERD, dysphagia,sob, cp, palpitations, abd pain, diarrhea, constipation, change in bowels, signs of bleeding, anorexia, wt loss. No fam hx of colon cancer or other GI malignancy. No records available in [place] or [place] regarding this office visit. ALLERGIES Allergen Reactions [...] PMH significant for hypothyroid, DM, afib on eliquis,HTN, HLD, obesity, hx of colon polyps who [...] from her prior colonoscopy -schedule colonoscopy at [place]. 2 day bowel prep. Procedure/risks were discussed with the patient ingreat detail including but not limited to the risk of sedation, bleeding, perforation, infection, and missed lesions. Patient agreed to proceed. -fiber rich diet Harleen Macdonald DO Follow Up: No follow-ups on file. documented in this encounterSub[facility]12-13-2023 Instructions* Patient Instructions* Harleen Macdonald DO - 04/29/2023 12:04 PM [...] If you do not have a responsible sulky driver (family member or friend) withyou to take you home, your exam cannot be done with sedation and will be cancelled. Please bring a list of all of your current medications, including any Kskj-yzk-Fffwhlx medications with you. Medications If you take insulin, diabetic medications or blood thinners such as Coumadin (warfarin), Plavix (clopidogrel), Ticlid (ticlopidine hydrochloride), Agrylin (anagrelide), Xarelto (Rivaroxaban), Pradaxa(Dabigatran), Eliquis (Apixaban), and Effient (Prasugrel). You MUST [...] every 15 minutes for a total of 2glasses. You may continue to drink clear liquids up to (three) 3 hours before your exam. 2 04/2019 documented in this encounterSub[facility]12-05-2023 Miscellaneous Notes* Telephone Encounter - Elly Álvarez - 04/21/2023 2:50 PM EST Pt's VM is full and there is no active MC Cannot inform pt 05/28 appt w/Kristel was canceled If pt calls back an attempt was made to contact her Frandy Álvarez 04/21/23 documented in this encounterSub[facility]12-07-2020 NoteMR#: [id number] I [facility] Pt. Name: TalonlogancathrynHortensia Admitted: 04/15/2020 Discharged: 04/23/2020 Date of : [...] to the patient being on anticoagulation and vjxhgcip-vr-xlxzhh sigmoid diverticulosis. Subsequently, pathology report came back [...] snare measured 3 mm and 5 mm. Ihjfetxb-cy-pjfiok sigmoid diverticulosis. Again, the patient was admitted [...] Mccollum MD Date Trans: 04/23/2020 02:52 P/mmo [id number] [facility]11-15-2020 NoteMR#: [id number] I [facility] Pt. Name: Hortensia Bates Admitted: 03/29/2020 Discharged: [...] Gonzalez MD Date Trans: 04/01/2020 12:25 P/jorgeo [id number] [facility]Evaluation noteNo assessment information availableSelect Medical [facility] Work Phone: Evaluation note* Diagnosis History of colon polyps- Primary Personal history of colonic polyps [facility] encounter [facility]* Diagnosis Chronic atrial fibrillation (HCC)- Primary Atrial fibrillation History of colon polyps Personal history of colonic polyps Primary hypertension Unspecified essential hypertension Class 3 obesity (HCC) documented in this encounter [facility]* Diagnosis Multiple lung nodules- Primary Other diseases of lung, not elsewhere classified [facility]* Diagnosis Type 2 diabetes mellitus without [...] essential hypertension Asymptomatic microscopic hematuria Obesity, morbid ([facility]/HCC) Morbid obesity Encounter for subsequent annual wellness visit (AWV) in Medicare patient- Primary Morbid (severe) obesity due to excess calories ([facility]) Body mass index (BMI) 45.0-49.9, adult ([facility]) Sleep apnea, obstructive Obstructive sleep apnea (adult) (pediatric) Atrial fibrillation, unspecified type (CMS/HCC) Primary hypertension ([facility]/HCC) Unspecified essential hypertension Type 2 diabetes mellitus without complication, without long-term current use of insulin ([facility]) Asymptomatic microscopic hematuria Hypothyroidism, unspecified type ([facility]) Mixed hyperlipidemia ([facility]) Mixed hyperlipidemia [facility]* Diagnosis Type 2 diabetes mellitus without complication, without long-term current use of insulin ([facility])- Primary Obesity, morbid ([facility]) Morbid obesity Atrial fibrillation, unspecified type ([facility]/HCC) Sleep apnea, obstructive Obstructive sleep apnea (adult) (pediatric) Primary hypertension ([facility]/HCC) Unspecified essential hypertension Type 2 diabetes mellitus without complication, without long-term current use of insulin ([facility])- Primary Sleep apnea, obstructive Obstructive sleep apnea (adult) (pediatric) Primary hypertension (CMS/HCC) Unspecified essential hypertension Asymptomatic microscopic hematuria Obesity, morbid ([facility]) Morbid obesity Encounter for subsequent annual wellness visit (AWV) in Medicare patient- Primary Morbid (severe) obesity due to excess calories ([facility]) Body mass index (BMI) 45.0-49.9, adult (CMS/HCC) Sleep apnea, obstructive Obstructive sleep apnea (adult) (pediatric) Atrial fibrillation, unspecified type (CMS/HCC) Primary hypertension (CMS/HCC) Unspecified essential hypertension Type 2 diabetes mellitus without complication, without long-term current use of insulin ([facility]) Asymptomatic microscopic hematuria Hypothyroidism, unspecified type (CMS/HCC) Acute bacterial conjunctivitis, unspecified laterality- Primary [facility]* Diagnosis Acute cystitis without hematuria- Primary [facility]* Diagnosis Mixed hyperlipidemia ([facility]) Mixed hyperlipidemia Hypothyroidism, unspecified type (CMS/HCC) Primary hypertension ([facility]) Unspecified essential hypertension Type 2 diabetes mellitus without complication, without long-term current use of insulin ([facility]) Gout, unspecified documented in this encounter [facility]* Diagnosis Primary hypertension ([facility]) Unspecified essential hypertension documented in this encounter [facility]* Diagnosis Type 2 diabetes mellitus without complication, without long-term current use of insulin ([facility])- Primary Obesity, morbid ([facility]) Morbid obesity Atrial fibrillation, unspecified type ([facility]) Sleep apnea, obstructive Obstructive sleep apnea (adult) (pediatric) Primary hypertension ([facility]/HCC) Unspecified essential hypertension Type 2 diabetes mellitus without complication, without long-term current use of insulin ([facility])- Primary Sleep apnea, obstructive Obstructive sleep apnea (adult) (pediatric) Primary hypertension ([facility]) Unspecified essential hypertension Asymptomatic microscopic hematuria Obesity, morbid ([facility]) Morbid obesity Encounter for subsequent annual wellness visit (AWV) in Medicare patient- Primary Morbid (severe) obesity due to excess calories ([facility]) Body mass index (BMI) 45.0-49.9, adult ([facility]) Sleep apnea, obstructive Obstructive sleep apnea (adult) (pediatric) Atrial fibrillation, unspecified type ([facility]) Primary hypertension ([facility]) Unspecified essential hypertension Type 2 diabetes mellitus without complication, without long-term current use of insulin ([facility]) Asymptomatic microscopic hematuria Hypothyroidism, unspecified type ([facility]) Type 2 diabetes mellitus without complication, without long-term current use of insulin ([facility]) documented in this encounter [facility]* Diagnosis Type 2 diabetes mellitus without complication, without long-term current use of insulin ([facility])- Primary Obesity, morbid ([facility]) Morbid obesity Atrial fibrillation, unspecified type ([facility]) Sleep apnea, obstructive Obstructive sleep apnea (adult) (pediatric) Primary hypertension ([facility]) Unspecified essential hypertension Type 2 diabetes mellitus without complication, without long-term current use of insulin ([facility])- Primary Sleep apnea, obstructive Obstructive sleep apnea (adult) (pediatric) Primary hypertension ([facility]/HCC) Unspecified essential hypertension Asymptomatic microscopic hematuria Obesity, morbid ([facility]) Morbid obesity Encounter for subsequent annual wellness visit (AWV) in Medicare patient- Primary Morbid (severe) obesity due to excess calories ([facility]) Body mass index (BMI) 45.0-49.9, adult ([facility]) Sleep apnea, obstructive Obstructive sleep apnea (adult) (pediatric) Atrial fibrillation, unspecified type ([facility]/HCC) Primary hypertension ([facility]) Unspecified essential hypertension Type 2 diabetes mellitus without complication, without long-term current use of insulin ([facility]) Asymptomatic microscopic hematuria Hypothyroidism, unspecified type ([facility]) Hypothyroidism, unspecified type ([facility]) Gout, unspecified Type 2 diabetes mellitus without complication, without long-term current use of insulin ([facility]) documented in this encounter [facility]* Diagnosis Type 2 diabetes mellitus without complication, without long-term current use of insulin ([facility])- Primary Obesity, morbid ([facility]) Morbid obesity Atrial fibrillation, unspecified type (HCC) Sleep apnea, obstructive Obstructive sleep apnea (adult) (pediatric) Primary hypertension Unspecified essential hypertension Type 2 diabetes mellitus without complication, without long-term current use of insulin ([facility])- Primary Sleep apnea, obstructive Obstructive sleep apnea (adult) (pediatric) Primary hypertension Unspecified essential hypertension Asymptomatic microscopic hematuria Obesity, morbid ([facility]) Morbid obesity Encounter for subsequent annual wellness visit (AWV) in Medicare patient- Primary Morbid (severe) obesity due to excess calories ([facility]) Body mass index (BMI) 45.0-49.9, adult ([facility]) Sleep apnea, obstructive Obstructive sleep apnea (adult) (pediatric) Atrial fibrillation, unspecified type (HCC) Primary hypertension Unspecified essential hypertension Type 2 diabetes mellitus without complication, without long-term current use of insulin ([facility]) Asymptomatic microscopic hematuria Hypothyroidism, unspecified type Type [...] Morbid (severe) obesity due to excess calories ([facility]) Body mass index (BMI) 45.0-49.9, adult ([facility]) Encounter for screening mammogram for malignant neoplasm of breast History of tobacco abuse documented in this encounter [facility]* Diagnosis Type 2 diabetes mellitus without complication, without long-term current use of insulin ([facility])- Primary Obesity, morbid ([facility]) Morbid obesity Atrial fibrillation, unspecified type ([facility]) Sleep apnea, obstructive Obstructive sleep apnea (adult) (pediatric) Primary hypertension Unspecified essential hypertension Type 2 diabetes mellitus without complication, without long-term current use of insulin (HCC)- Primary Sleep apnea, obstructive Obstructive sleep apnea (adult) (pediatric) Primary hypertension Unspecified essential hypertension Asymptomatic microscopic hematuria Obesity, morbid ([facility]) Morbid obesity Encounter for subsequent annual wellness visit (AWV) in Medicare patient- Primary Morbid (severe) obesity due to excess calories ([facility]) Body mass index (BMI) 45.0-49.9, adult ([facility]) Sleep apnea, obstructive Obstructive sleep apnea (adult) (pediatric) Atrial fibrillation, unspecified type (HCC) Primary hypertension Unspecified essential hypertension Type 2 diabetes mellitus without complication, without long-term current use of insulin ([facility]) Asymptomatic microscopic hematuria Hypothyroidism, unspecified type Type 2 diabetes mellitus without complication, without long-term current use of insulin ([facility])- Primary Sleep apnea, obstructive Obstructive sleep apnea (adult) (pediatric) Multiple lung nodules Other diseases of lung, not elsewhere classified Atrial fibrillation, unspecified type ([facility]) Primary hypertension Unspecified essential hypertension Asymptomatic microscopic hematuria Hypothyroidism, unspecified type Gout, unspecified cause, unspecified chronicity, unspecified site Mixed hyperlipidemia Mixed hyperlipidemia Morbid (severe) obesity due to excess calories ([facility]) Body mass index (BMI) 45.0-49.9, adult ([facility]) Encounter for screening mammogram for malignant neoplasm of breast History of tobacco abuse Primary hypertension Unspecified essential hypertension documented in this encounter [facility] HealthcareEvaluation note* Diagnosis Type 2 diabetes mellitus without complication, without long-term current use of insulin ([facility])- Primary Obesity, morbid ([facility]) Morbid obesity Atrial fibrillation, unspecified type ([facility]) Sleep apnea, obstructive Obstructive sleep apnea (adult) (pediatric) Primary hypertension Unspecified essential hypertension Type 2 diabetes mellitus without complication, without long-term current use of insulin ([facility])- Primary Sleep apnea, obstructive Obstructive sleep apnea (adult) (pediatric) Primary hypertension Unspecified essential hypertension Asymptomatic microscopic hematuria Obesity, morbid ([facility]) Morbid obesity Encounter for subsequent annual wellness visit (AWV) in Medicare patient- Primary Morbid (severe) obesity due to excess calories ([facility]) Body mass index (BMI) 45.0-49.9, adult ([facility]) Sleep apnea, obstructive Obstructive sleep apnea (adult) (pediatric) Atrial fibrillation, unspecified type (HCC) Primary hypertension Unspecified essential hypertension Type 2 diabetes mellitus without complication, without long-term current use of insulin ([facility]) Asymptomatic microscopic hematuria Hypothyroidism, unspecified type Type 2 diabetes mellitus without complication, without long-term current use of insulin ([facility])- Primary Sleep apnea, obstructive Obstructive sleep apnea (adult) (pediatric) Multiple lung nodules Other diseases of lung, not elsewhere classified Atrial fibrillation, unspecified type (HCC) Primary hypertension Unspecified essential hypertension Asymptomatic microscopic hematuria Hypothyroidism, unspecified type Gout, unspecified cause, unspecified chronicity, unspecified site Mixed hyperlipidemia Mixed hyperlipidemia Morbid (severe) obesity due to excess calories ([facility]) Body mass index (BMI) 45.0-49.9, adult ([facility]) Encounter for screening mammogram for malignant neoplasm of breast History of tobacco abuse Multiple lung nodules- Primary Other diseases of lung, not elsewhere classified documented in this encounter [facility] HealthcareEvaluation note* Diagnosis Type 2 diabetes mellitus without complication, without long-term current use of insulin ([facility])- Primary Obesity, morbid ([facility]) Morbid obesity Atrial fibrillation, unspecified type ([facility]) Sleep apnea, obstructive Obstructive sleep apnea (adult) (pediatric) Primary hypertension Unspecified essential hypertension Type 2 diabetes mellitus without complication, without long-term current use of insulin ([facility])- Primary Sleep apnea, obstructive Obstructive sleep apnea (adult) (pediatric) Primary hypertension Unspecified essential hypertension Asymptomatic microscopic hematuria Obesity, morbid ([facility]) Morbid obesity Encounter for subsequent annual wellness visit (AWV) in Medicare patient- Primary Morbid (severe) obesity due to excess calories ([facility]) Body mass index (BMI) 45.0-49.9, adult ([facility]) Sleep apnea, obstructive Obstructive sleep apnea (adult) (pediatric) Atrial fibrillation, unspecified type (HCC) Primary hypertension Unspecified essential hypertension Type 2 diabetes mellitus without complication, without long-term current use of insulin ([facility]) Asymptomatic microscopic hematuria Hypothyroidism, unspecified type Type [...] Morbid (severe) obesity due to excess calories ([facility]) Body mass index (BMI) 45.0-49.9, adult ([facility]) Encounter for screening mammogram for malignant neoplasm of breast History of tobacco abuse Dog bite, initial encounter- Primary documented in this encounter [facility] HealthcareEvaluation note* Diagnosis Type 2 diabetes mellitus without complication, without long-term current use of insulin ([facility])- Primary Obesity, morbid ([facility]) Morbid obesity Atrial fibrillation, unspecified type ([facility]) Sleep apnea, obstructive Obstructive sleep apnea (adult) (pediatric) Primary hypertension Unspecified essential hypertension Type 2 diabetes mellitus without complication, without long-term current use of insulin ([facility])- Primary Sleep apnea, obstructive Obstructive sleep apnea (adult) (pediatric) Primary hypertension Unspecified essential hypertension Asymptomatic microscopic hematuria Obesity, morbid ([facility]) Morbid obesity Encounter for subsequent annual wellness visit (AWV) in Medicare patient- Primary Morbid (severe) obesity due to excess calories ([facility]) Body mass index (BMI) 45.0-49.9, adult ([facility]) Sleep apnea, obstructive Obstructive sleep apnea (adult) (pediatric) Atrial fibrillation, unspecified type ([facility]) Primary hypertension Unspecified essential hypertension Type 2 diabetes mellitus without complication, without long-term current use of insulin ([facility]) Asymptomatic microscopic hematuria Hypothyroidism, unspecified type Type 2 diabetes mellitus without complication, without long-term current use of insulin ([facility])- Primary Sleep apnea, obstructive Obstructive sleep apnea (adult) (pediatric) Multiple lung nodules Other diseases of lung, not elsewhere classified Atrial fibrillation, unspecified type (HCC) Primary hypertension Unspecified essential hypertension Asymptomatic microscopic hematuria Hypothyroidism, unspecified type Gout, unspecified cause, unspecified chronicity, unspecified site Mixed hyperlipidemia Mixed hyperlipidemia Morbid (severe) obesity due to excess calories ([facility]) Body mass index (BMI) 45.0-49.9, adult ([facility]) Encounter for screening mammogram for malignant neoplasm of breast History of tobacco abuse Gout, unspecified Type 2 diabetes mellitus without complication, without long-term current use of insulin ([facility]) Hypothyroidism, unspecified type documented in this encounter [facility] HealthcareEvaluation note* Diagnosis Onset Date Resolution Status Admit Date Atrial fibrillation acuteSe2024 8:12amHTN (hypertension)acuteSept 2025 8:12amHyperlipidemiaacuteFebruary 02, 2025 8:12amMorbid (severe) obesity due to excess caloriesacuteFebruary 02, 2025 8:12amSleep apnea, obstructiveacute February 02, 2025 8:12amType 2 diabetes mellitusacuteFebruary 02, 2025 8:12am [facility] Work Phone: Hospital Discharge instructionsAmbulatory Orders* AMB POC Hgb A1C Time Frame: 02/02/25, Location: Determined By Patient [facility] Work Phone: Reason for referral (narrative)* Outpatient Procedure (Routine) - Pending ReviewSpecialtyDiagnoses / ProceduresReferred By Contact [facility]oses History of colon polyps Procedures COLONOSCOPY SCREENING COLONOSCOPY FLX DX W/[place] [address] [id number] [place] [id number] Referral IDStatusReasonStoakland DateExpiration DateVisits RequestedVisits [id number] Auto-Generated Referral [facility] for referral (narrative)* Outpatient Procedure (Routine) - ClosedSpecialtyDiagnoses / ProceduresReferred By ContactReferred To Contact [facility] Diagnoses History of colon polyps Procedures COLONOSCOPY SCREENING COLONOSCOPY FLX DX W/[place] [address] [place] [address] [address] Referral IDStatusReasonStart DateExpiration DateVisits RequestedVisits [id number] Auto-Generated Referral [facility] (narrative)No reason for referral information availableMercy Health Work Phone: Reason for visit Narrative* Outpatient Procedure (Routine) - ClosedSpecialtyDiagnoses / ProceduresReferred By ContactReferred To [facility]oses History of colon polyps Procedures COLONOSCOPY SCREENING COLONOSCOPY FLX DX W/COLLJ SPE[place] [address] [place] [address] [facility] [address] [place] [address] Referral IDStatusReasonStart DateExpiration DateVisits RequestedVisits [id number] Auto-Generated Referral [facility] Summary Purpose Family History No Family History Records FoundNo Family History Records FoundNo Family History Records FoundNo Family History Records FoundNo Family History Records FoundNo Family History Records FoundNo Family History Records FoundNo Family History Records Found Advance Directives Advance Directive Response Recorded Date/ Time Advance Directives No March 9:54am Advance Directive Response Recorded Date/ Time Advance Directives No March 10:54am Chief Complaint and Reason for Visit Chief Complaint Admit Date Established Patient February 02, 2025 8:12am Z23 February 23, 2025 9: 00am Reason for Visit Admit Date Atrial fibrillation February 02, 2025 8:12am HTN (hypertension) February 02, 2025 8:12am Hyperlipidemia February 02, 2025 8:12am Morbid (severe) obesity due to excess ca lories February 02, 2025 8:12am Sleep apnea, obstructive February 02, 2025 8:12am Type 2 diabetes mellitus February 02, 2025 8:12am Chief Complaint r91.8 Chief Complaint Admit Date Established Patient February 02, 2025 8:12am Chief Complaint Admit Date Established Patient February 02, 2025 8:12am Z23 February 23, 2025 9: 00am been ill for a few days stomach issues N ovember 2024 11:05am Reason for Visit Admit Date Atrial fibrillation February 02, 2025 8:12am HTN (hypertension) February 02, 2025 8:12am Hyperlipidemia February 02, 2025 8:12am Morbid (severe) obesity due to excess ca lories February 02, 2025 8:12am Sleep apnea, obstructive February 02, 2025 8:12am Type 2 diabetes mellitus February 02, 2025 8:12am HTN (hypertension) March 20, 2025 1 1:05am Morbid (severe) obesity due to excess ca lories March 20, 2025 11:05am Type 2 diabetes mellitus March 20 11:05am Reason for Referral SpecialtyDiagnoses / ProceduresReferred By ContactReferred To Contact Diagnoses Multiple lung nodules Procedures CT chest wo IV contrast Kaila Goldstein, SORORITY MOTHER [address] [place] [address] Referral IDStatusReasonStart DateExpiration DateVisits RequestedVisits [id number] Additional Source Comments INFORMATION SOURCE (unrecogn ized section and content) DATE CREATED AUTHOR 11/07/2020 [facility] DATE CREATED AUTHOR AUTHOR'S ORGANIZ ATION 09/19/2022 [facility] DATE CREATED AUTHOR AUTHOR'S ORGANIZ ATION 03/15/2023 [facility] DATE CREATED AUTHOR AUTHOR'S ORGANIZ ATION 06/22/2023 [facility] DATE CREATED AUTHOR AUTHOR'S ORGANIZ ATION 06/24/2023 [facility] DATE CREATED AUTHOR AUTHOR'S ORGANIZ ATION 11/05/2024 [facility] DATE CREATED AUTHOR AUTHOR'S ORGANIZ ATION 01/19/2025 [facility] DATE CREATED AUTHOR AUTHOR'S ORGANIZ ATION 02/26/2025 [facility] Care Teams (unrecognized sec tion and content) Team Status: Active Member Role Status Dates Kaila Goldstein Primary Care Provider Active Team Status: Inactive Member Role Status Dates Kaila Goldstein Primary Care Provider, Attending Provi abhishek Active Team MemberRelationshipSpecialtyStart DateEnd Date Kaila Goldstein, AUTO SUSPENSION AND STEERING MECHANIC [address] [place] [address] PCP - [facility] Hvavnvbw59/7/23Te MemberRelationshipSpecialtyStart DateEnd Date Kaila Goldstein, AUTO SUSPENSION AND STEERING MECHANIC [address] [place] [address] PCP - [facility]03/24/23Te MemberRelationshipSpecialtyStart DateEnd Date Kaila Goldstein, AUTO SUSPENSION AND STEERING MECHANIC [address] [place] [id number] PCP - [facility]03/24/23Te MemberRelationshipSpecialtyStart DateEnd Date Kaila Goldstein, AUTO SUSPENSION AND STEERING MECHANIC [address] [place] [address] PCP - [facility]03/24/23Te MemberRelationshipSpecialtyStart DateEnd Date Quinn Antunez MD PCP - [facility]12/08/22 Quinn Antunez MD [address] [place] [address] PCP - [facility]22/1/23 Kaila Goldstein NP [address] [place] [phone] Referring PhysicianNurse Practitioner12/08/22Team MemberRelationshipSpecialty Start DateEnd Date Quinn Antunez MD [address] [place] [address] PCP - [facility]05/18/22 Quinn Antunez MD [address] [place] [address] PCP - [facility] Medicine08/26/23 Kaila Goldstein NP Referring PhysicianNurse Practitioner12/08/22 Kaila Goldstein NP [address] [place] [address] [facility]08/26/23Team MemberRelationshipSpecialtyStart DateEnd Date Quinn Antunez MD [address] [place] [address] PCP - [facility]05/18/22 Quinn Antunez MD [address] [place] [address] PCP - [facility]08/26/23 Kaila Goldstein NP Referring PhysicianNurse Practitioner12/08/22 Kaila Goldstein NP [address] [place] [address] Nurse Pract[facility]08/26/23Team MemberRelationshipSpecialtyStart DateEnd Date Quinn Antunez MD [address] [place] [address] PCP - [facility]05/18/22 Quinn Antunez MD [address] [place] [address] PCP - [facility] Medicine08/26/23 Kaila Goldstein NP Referring PhysicianNurse Practitioner12/08/22 Kaila Goldstein NP [address] [place] [address] Nurse Pract[facility]08/26/23Team MemberRelationshipSpecialtyStart DateEnd Date Quinn Antunez MD [address] [place] [address] PCP - [facility]05/18/22 Quinn Antunez MD [address] [place] [address] PCP - [facility]08/26/23 Kaila Goldstein NP Referring PhysicianNthe [facility] Practitioner12/08/22 Kaila Goldstein NP [address] [place] [address] Nurse Pract[facility]erP[facility]08/26/23Team MemberRelationshipSpecialtyStart DateEnd Date Quinn Antunez MD [address] [place] [address] PCP - [facility]1/05/2311 Quinn Antunez MD [address] [place] [address] PCP - GeneralFamily Medicine08/26/23 Kaila Goldstein NP Referring PhysicianNurse Practitioner12/08/22 Kaila Goldstein NP [address] [place] [address] Nurse Pract[facility]erAd[facility]08/26/23Team MemberRelationshipSpecialtyStart DateEnd Date Quinn Antunez MD [address] [place] [address] PCP - [facility] Medicine08/26/23 Kaila Goldstein NP Referring PhysicianNurse Practitioner12/08/22 Kaila Goldstein NP [address] [place] [address] Nurse PractitionerAd[facility] Medicine08/26/23Team MemberRelationshipSpecialtyStart DateEnd Date Quinn Antunez MD [address] [place] [address] PCP - [facility] Medicine08/26/23 Quinn Antunez MD [address] [place] [address] PCP - [facility] [place]05/18/24 Kaila Goldstein NP Referring PhysicianNurse Practitioner12/08/22 Kaila Goldstein NP [address] [place] [address] Nurse Pract[facility]erAd[facility] Medicine08/26/23Team MemberRelationshipSpecialtyStart DateEnd Date Quinn Antunez MD [address] [place] [address] PCP - [facility] Medicine08/26/23 Quinn Antunez MD [address] [place] [address] PCP - [place]05/18/24 Kaila Goldstein NP Referring PhysicianNurse Practitioner12/08/22 Kaila Goldstein NP [address] [place] [address] Nurse Pract[facility]erAd[facility] Medicine08/26/23Team MemberRelationshipSpecialtyStart DateEnd Date Quinn Antunez MD [address] [place] [address] PCP - [facility]08/26/23 Quinn Antunez MD [address] [place] [address] PCP - [place]05/18/24 Kaila Goldstein NP Referring PhysicianNurse Practitioner12/08/22 Kaila Goldstein NP [address] [place] [address] Nurse Pract[facility]Ad[facility] Medicine08/26/23Team MemberRelationshipSpecialtyStart DateEnd Date Quinn Antunez MD [address] [place] [address] PCP - [facility]08/26/23 Quinn Antunez MD [address] [place] [address] PCP - [facility] [place]05/18/24 Kaila Goldstein NP Referring PhysicianNurse Practitioner12/08/22 Kaila Goldstein NP [address] [place] [address] Nurse Pract[facility]erAd[facility] Medicine08/26/23Team MemberRelationshipSpecialtyStart DateEnd Date Quinn Antunez MD [address] [place] [address] PCP - [facility]08/26/23 Quinn Antunez MD [address] [place] [address] PCP - [place]05/18/24 Kaila Goldstein NP Referring PhysicianNurse Practitioner12/08/22 Kaila Goldstein NP [address] [place] [address] Nurse Pract[facility]erAd[facility] Medicine08/26/23Team MemberRelationshipSpecialtyStart DateEnd Date Quinn Antunez MD [address] [place] [address] PCP - [facility] Medicine08/26/23 Qiunn Antunez MD [address] [place] [address] PCP - [facility] [place]05/18/24 Kaila Goldstein NP Referring PhysicianNurse Practitioner12/08/22 Kaila Goldstein NP [address] [place] [address] Nurse Pract[facility]erP[facility]08/26/23Team MemberRelationshipSpecialtyStart DateEnd Date Quinn Antunez MD [address] [place] [address] PCP - [facility]08/26/23 Kaila Goldstein NP Referring PhysicianNurse Practitioner12/08/22 Kaila Goldstein NP [address] [place] [address] Nurse Pract[facility]erAd[facility] Medicine08/26/23 Team Status: Active Member Role Status Dates Kaila Goldstein SORORITY MOTHER-C Primary Care Provider Active Team Status: Inactive Member Role Status Dates Kaila Goldstein SORORITY MOTHER-C Primary Care Provider Active Start: February 02, 2025 End: February 02, 2025Kaila Goldstein NP-CAttending ProviderActiveStart: February 02, 2025 End: February 02, 2025 Team Status: Inactive Member Role Status Dates Kaila Goldstein NP-C Primary Care Provider Active Start: February 23, 2025 End: February 23ryjoe Chino - CHC , DO CHCAttending ProviderActiveStart: February 23, 2025 End: February 23, 2025Team MemberRelationshipSpecialtyStart DateEnd Date Quinn Antunez MD PCP - [facility] Medicine Quinn Antunez MD [address] [place] [address] PCP - [facility]05/18/2311 Quinn Antunez MD [address] [place] [address] PCP - [facility] Medicine08/26/23 Quinn Antunez MD [address] [place] [address] PCP - [place] Kaila Goldstein NP [address] [place] [address] PCP - Jose C PARKER12/16/24 Kaila Goldstein NP Referring PhysicianNurse Practitioner12/08/2309 Kaila Goldstein NP [address] [place] [address] Nurse PractitionerFamily Medicine08/25/2409Team MemberRelationshipSpecialty Start DateEnd Date Quinn Antunez MD [address] [place] [address] PCP - [facility]05/18/2311 Quinn Antunez MD [address] [place] [address] PCP - [facility] Medicine08/26/23 Quinn Antunez MD [address] [place] [address] PCP - Jose C PARKER Kaila Goldstein NP [address] [place] [address] PCP - Jose C [place]12/16/24 Kaila Goldstein NP Referring PhysicianNurse Practitioner12/08/2309 Kaila Goldstein NP [address] [place] [address] Nurse Pract[facility]erAd[facility]08/25/2409Team MemberRelationshipSpecialty Start DateEnd Date Quinn Antunez MD PCP - [facility] Quinn Antunez MD [address] [place] [address] PCP - [facility]/ Quinn Antunez MD [address] [place] [address] PCP - [facility]08/26/23 Quinn Antunez MD [address] [place] [address] PCP - Jose C PARKER Kaila Goldstein NP [address] [place] [address] PCP - Jose [facility] [place]12/16/24 Kaila Goldstein NP Referring PhysicianNurse Practitioner12/08/2309 Kaila Goldstein NP [address] [place] [address] Nurse Pract[facility]erP[facility]08/25/2409 Team Status: Active Member Role/Relationship Status Dates Kaila Goldstein NP-C Primary Care Provider Active Team Status: Inactive Member Role/Relationship Status Dates RADHA Blanton Primary Care Provider Active Start: February 02, 2025 End: February 02, 2025Kaila Goldstein NP-CAttending ProviderActiveStart: February 02, 2025 End: February 02, 2025 Team Status: Inactive Member Role/Relationship Status Dates DINA BlantonC Primary Care Provider Active Start: February 23, 2025 End: February 23jessica Chino - CHC , DO CHCAttending ProviderActiveStart: February 23, 2025 End: February 23, 2025 Team Status: Inactive Member Role/Relationship Status Dates RADHA Blanton Primary Care Provider Active Start: March 20, 2025 End: March 20, 2025Kaila Goldstein NP-CAttenlogan ProviderActiveStart: March 20, 2025 End: March 20, 2025 Goals (unrecognized section and content) Goals may be documented in a n alternate sectionGoals may be documented in an alternate sectionGoals may be documented in an alternate sectionGoals may be documented in an alternate section Source Comments (unrecognize d section and content) In the event this informatio n is protected by the Federal Confidentiality of Alcohol and Drug Abuse Patient Records regulations: The Federal rules restrict any use of the information to criminally investigate or prosecute any alcohol or drug abuse patient.[facility] the event this information is protected by the Federal Confidentiality of Alcohol and Drug Abuse Patient Records regulations: The Federal rules restrict any use of the information to criminally investigate or prosecute any alcohol or drug abuse patient.[facility] HospitalIn the event this information is protected by the Federal Confidentiality of Alcohol and Drug Abuse Patient Records regulations: The Federal rules restrict any use of the information to criminally investigate or prosecute any alcohol or drug abuse patient.[facility] the event this information is protected by the Federal Confidentiality of Alcohol and Drug Abuse Patient Records regulations: The Federal rules restrict any use of the information to criminally investigate or prosecute any alcohol or drug abuse patient.[facility] Reason for Visit (unrecogniz ed section and content) ReasonCommentsAppointmentReasonCommentsNew PatientColonoscopy with history of polpysReasonCommentsResultsReasonOnset DateCommentsMed [id number] CommentsMed RefillReasonOnset DateCommentsMed [id number] Diabetes Inactive Administered Medications - up to 3 most recent administrations Administered Medications (un recognized section and content) Medication OrderMAR ActionAction DateDoseRateSite NaCl 0.9% iv infusion 30 mL/hr, INTRAVENOUS, CONTINUOUS, Starting on Danica 06/18/23 at 0800, Until Danica 06/18/23 at 0920, Preprocedure New Bag/Syringe/[id number]/18/2023 8:05 AM EST30 mL/hr30 mL/hrIV FOR RECORDS PERTAINING TO PATIENTS WHO ARE [...] BE BASED ON THE PRIMARY CLINICAL RECORDS. [facility] [employer] [facility]. provides no warranty or guarantee of the accuracy or completeness of information in this document.
[2025-03-22 12:07] LABS: Glucose Urine UA NEGATIVE (NEGATIVE)
[2025-03-22 12:18] LABS: Anion Gap 13.9; Blood Urea Nitrogen 14.0 mg/dL (7.0-18.0); Calcium 9.0 mg/dL (8.5-10.1); Carbon Dioxide 25.8 mmol/L (21.0-32.0); Chloride 105 mmol/L (98-107); Estimated GFR (African America >60 (>=60 mL/min/1.73m^2); Estimated GFR (Non-African Ame >60 (>=60 mL/min/1.73m^2); Glucose 106 mg/dL (74-106); Potassium 3.7 mmol/L (3.5-5.1); Sodium 141 mmol/L (136-145)
[2025-03-22 13:35] LABS: Cast Seen? NONE SEEN #/LPF (NONE SEEN); Crystals Seen? None Seen #/HPF (None Seen)
== END 2025-03-22 11:18 | disposition home or self-care (01) ==
LOC: LAB 11:19
PROVIDERS: PCP Nurse Practitioner; Visit Provider Nurse Practitioner
DX: K52.9 Noninfective gastroenteritis and colitis, unspecified (principal); R39.9 Unspecified symptoms and signs involving the genitourinary system; R82.90 Unspecified abnormal findings in urine
CPT/HCPCS: 36415; 80048; 81001; 87086